=== PATIENT | female | born 1930 | race Hispanic/Latino ===

== ENCOUNTER 2018-02-08 09:38 | Emergency (ER) | payer BC, MEDICARE ==
--- NOTE | 2018-02-08 10:40 | RAD ---
HISTORY: Constipation COMPARISON: None available. FINDINGS: BOWEL: A moderate amount of retained fecal material seen at the distal rectosigmoid potentially reflective of mild constipation. The bowel gas pattern appears nonobstructive nevertheless. No suspicious intra-abdominal calcifications identified. BONES: Scoliotic deformity thoracolumbar spine. OTHER FINDINGS: None. IMPRESSION: Limited constipation in question. Nonobstructive bowel gas pattern evident.
[2018-02-08 10:45] LABS: BASO % 0.9 % (0.0-2.0); EOS % 0.9 % (0.0-4.0); LYMPH # 0.3 K/uL (1.0-4.3); NEUT # 3.4 K/uL (1.8-7.0)
[2018-02-08 10:52] LABS: ALB/GLOB RATIO 1.3 (1.0-2.1); ALBUMIN 4.1 g/dL (3.5-5.0); ALT/SGPT 16 U/L (9-52); AST/SGOT 29 U/L (14-36); BLOOD UREA NITROGEN 16 mg/dL (7-17); CALCIUM 8.4 mg/dl (8.6-10.4); GFR AFRICAN-AMERICAN > 60; GFR NON-AFRICAN AMERICAN 59; HEMOGLOBIN 10.5 g/dL (11.0-16.0); LIPASE 56 U/L (23-300); LYMPH % 7.1 % (20.0-40.0); MEAN CORPUSCULAR HEMOGLOBIN 27.5 pg (27.0-31.0); MEAN CORPUSCULAR HGB CONC 33.9 g/dL (33.0-37.0); MEAN PLATELET VOLUME 7.5 fL (7.2-11.7); MONO # 0.6 K/uL (0.0-0.8); MONO % 14.5 % (0.0-10.0); NEUT % 76.6 % (50.0-75.0); PLATELET COUNT 134 K/uL (130-400); RBC 3.82 Mil/uL (3.80-5.20); WHITE BLOOD COUNT 4.5 K/uL (4.8-10.8)
[2018-02-08] MEDS ORDERED: Sodium Chloride 0.9% 500 ML IV ONE ×2 (10:56→11:14)
[2018-02-08 10:58] LABS: MEAN CELL VOLUME 81.2 fL (81.0-99.0)
[2018-02-08 11:06] LABS: URINE BILIRUBIN NEGATIVE (NEGATIVE); URINE BLOOD NEGATIVE (NEGATIVE); URINE CLARITY Clear (Clear); URINE COLOR Straw (YELLOW); URINE GLUCOSE (UA) NORMAL (Normal); URINE LEUKOCYTE ESTERASE NEG Leu/uL (Negative); URINE PROTEIN NEGATIVE (NEGATIVE); URINE UROBILINOGEN NORMAL mg/dL (0.2-1.0)
[2018-02-08 11:23] VITALS: PULSE 70
[2018-02-08 11:47] LABS: BANDS 1 % (0-2); EOSINOPHIL 2 % (0-4); LYMPHOCYTE 8 % (20-40); MONOCYTE 12 % (0-10); NEUTROPHIL 77 % (50-75); PLATELET ESTIMATE NORMAL (NORMAL); TOTAL CELLS COUNTED 100
[2018-02-08 11:48] LABS: ANISOCYTOSIS SLIGHT; OVALOCYTES SLIGHT; POIKILOCYTOSIS SLIGHT
[2018-02-08 11:49] LABS: FREE T4 2.17 ng/dL (0.78-2.19)
--- NOTE | 2018-02-08 12:11 | C.PDOC ---
Time Seen by Provider: 02/08/18 09:57 Chief Complaint (Nursing): GI Problem History Per: Patient, Family Onset/Duration Of Symptoms: Days (few) Current Symptoms Are (Timing): Still Present Severity: Moderate Quality Of Discomfort: Pressure. denies: "Pain" Associated Symptoms: Nausea, Constipation Exacerbating Factors: Food Alleviating Factors: None Last Bowel Movement: Yesterday Additional History Per: Prior Records Past Medical History Reviewed: Historical Data, Nursing Documentation, Vital Signs Vital Signs: Last Vital Signs Temp 97 F L 02/08/18 09:42 Pulse 70 02/08/18 11:22 Resp 18 02/08/18 11:22 BP 154/78 H 02/08/18 11:22 Pulse Ox 95 02/08/18 11:22 - Medical History PMH: Arthritis, Atrial Fibrillation, Back Problems, CAD, HTN, Hypercholesterolemia, Chronic Kidney Disease Surgical History: Coronary Stent (x2), Pacemaker - [facility] Procedures FLUOROSCOPY OF LEFT HEART USING OTHER CONTRAST (07/08/15) MEASURE OF CARDIAC SAMPL & PRESSURE, L HEART, PERC APPROACH (07/08/15) PACEMAKER RATE CHECK (03/30/15) Family History: States: Unknown Family Hx, CAD - Social History Hx Tobacco Use: No Hx Alcohol Use: No Hx Substance Use: No - Immunization History Hx Tetanus Toxoid Vaccination: No Hx Influenza Vaccination: No Hx Pneumococcal Vaccination: Yes (last week) Review Of Systems Except As Marked, All Systems Reviewed And Found Negative. Constitutional: Negative for: Fever Cardiovascular: Negative for: Chest Pain Respiratory: Negative for: Shortness of Breath Gastrointestinal: Positive for: Nausea, Constipation. Negative for: Vomiting, Diarrhea, Melena, Hematochezia, Hematemesis Musculoskeletal: Negative for: Neck Pain, Back Pain Skin: Negative for: Rash Neurological: Negative for: Weakness, Numbness Physical Exam - Physical Exam Appears: Non-toxic, No Acute Distress Skin: Normal Color, Warm, Dry, No Rash Head: Atraumatic, Normacephalic Eye(s): bilateral: Normal Inspection, PERRL, EOMI Neck: Normal ROM, Supple Cardiovascular: Rhythm Regular Respiratory: Normal Breath Sounds, No Accessory Muscle Use Gastrointestinal/Abdominal: Soft, No Tenderness Back: No CVA Tenderness Extremity: Normal ROM Neurological/Psych: Oriented x3, Normal Motor, Normal Sensation ED Course And Treatment - Laboratory Results Result Diagrams: 02/08/18 10:29 02/08/18 10:29 Interpretation Of Abnormal: Mild hyponatremia ECG: Interpreted By Me, Viewed By Me ECG Rhythm: A Paced, L BBB, Nonspecific Changes Rate From EC O2 Sat by Pulse Oximetry: 95 Pulse Ox Interpretation: Normal - Other Rad KUB X-Ray: Viewed By Me, Read By Radiologist Interpretation: IMPRESSION: Limited constipation in question. Nonobstructive bowel gas pattern evident. Progress - Interventions Interventions:: Observation, Intravenous fluid - Medications Administered Intravenous: Antiemetic - Data Reviewed Data Reviewed: Lab, Diagnostic imaging, EKG, Old records - Patient Status Patient status: Mostly improved - Continuity of Care Discussed patient case with:: Patient, Family-HIPPA compliant, ED Nurse, PMD - Patient Plan Patient Plan: Discharge, F/U with PCP Disposition Discussed With : Gustabo Hassan Comment: I discussed with him pt's presentation and lab findings, including sodium level. He states that he wants pt to stop taking the Lasix and f/up in his office in 2 days. Doctor Will See Patient In The: Office Counseled Patient/Family Regarding: Studies Performed, Diagnosis, Need For Followup, Rx Given - Disposition Referrals: Gustabo Hassan MD [Staff Provider] - Disposition: HOME/ ROUTINE Disposition Time: 12:14 Condition: IMPROVED Additional Instructions: Stop taking your Lasix for now until you follow up with your doctor in 2 days. Return to the ER if you develop fever, vomiting, abdominal pain, worsening of symptoms or if you have any other concerns. Prescriptions: Polyethylene Glycol 3350 [Miralax] 17 gm PO DAILY PRN #7 packet PRN Reason: Constipation Instructions: Constipation, Adult (DC) Forms: [facility] (Turkish) - Clinical Impression Clinical Impression: Constipation, Hyponatremia
[2018-02-08 12:28] VITALS: BP 124/99; RESP 19; TEMP 98; O2SAT 96
--- NOTE | 2018-02-09 12:37 | CARD ---
APPROVED REPORT EKG Measurement Heart [id number] <Conclusion> Atrial-paced rhythm with prolonged AV conduction Left axis deviation Left bundle branch block Abnormal ECG
== END 2018-02-08 12:40 | disposition home or self-care (01) ==
LOC: C.ER 09:38
DX: K59.00 Constipation, unspecified (principal); E87.1 Hypo-osmolality and hyponatremia
CPT/HCPCS: 74018; 80053; 81001; 83690; 83735; 84439; 84443; 85025; 87086; 93005; 96361; 96374; 99285; J2405; J7040

== ENCOUNTER 2018-03-18 08:14 | Inpatient (IN) | payer MEDICARE ==
[2018-03-18] MEDS ORDERED: Tetanus/Diphtheria Toxoids 0.5 ml Syringe IM ONE ×2 (08:43→09:07)
--- NOTE | 2018-03-18 08:52 | C.PDOC ---
History Of Present Illness S/P FALL THIS MORNING CO L HIP, ELBOW AND KNEE INJURY. PS ACCID SLIPPED ON TILE IN BATHROOM, FELL ONTO L HIP AND ELBOW, KNEE. ?HEAD INJURY. NO LOC. NORMALLY WALKS W CANE AND WALKER DUE TO ARTHRITIS. ON ELIQUIS HO VALVE REPAIR. NO ASSOC PAIN, PRODROME. +AMBUL AFTER FALL. NO NV, RECENT ILLNESS. SP TYLENOL HOST AND HOSTESS EXAM NAD NONTOXIC HEENT ATRAUM NECK SUPPLE NO CSPINE TEND EXT L HIP: AROM WO DIFF. ?SHORTENING L LEG. NO FOCAL TEND. L THIGH: +PROX LAT SOFT TISSUE TEND NO DEFORM. L KNEE: AROM WO DIFF NO DEFORM. L ELBOW: +HEMATOMA, FULL AROM WO DIFF. SKIN +ABRASION L KNEE, L ELBOW NO ACTIVE BLEED. NEURO NO FOCAL DEF, AT CURRENT BASELINE PER FAMILY @ BEDSIDE REMAINDER NEG - HPI Time Seen by Provider: 03/18/18 08:34 Chief Complaint (Nursing): Trauma History Per: Patient History/Exam Limitations: no limitations Onset/Duration Of Symptoms: Hrs Location Of Injury: Left: Elbow, Hip, Knee Additional History Per: Patient Past Medical History Reviewed: Historical Data, Nursing Documentation, Vital Signs Vital Signs: Last Vital Signs Temp 98.0 F 03/18/18 10:58 Pulse 125 H 03/18/18 11:36 Resp 16 03/18/18 11:36 BP 91/46 L 03/18/18 11:36 Pulse Ox 97 03/18/18 12:58 - Medical History PMH: Arthritis, Atrial Fibrillation, Back Problems, CAD, HTN, Hypercholesterolemia, Chronic Kidney Disease Surgical History: Coronary Stent (x2), Pacemaker - [facility] Procedures FLUOROSCOPY OF LEFT HEART USING OTHER CONTRAST (07/08/15) MEASURE OF CARDIAC SAMPL & PRESSURE, L HEART, PERC APPROACH (07/08/15) PACEMAKER RATE CHECK (03/30/15) Family History: States: Unknown Family Hx, CAD - Social History Hx Tobacco Use: No Hx Alcohol Use: No Hx Substance Use: No - Immunization History Hx Tetanus Toxoid Vaccination: No Hx Influenza Vaccination: No Hx Pneumococcal Vaccination: Yes (last week) Review Of Systems Except As Marked, All Systems Reviewed And Found Negative. Constitutional: Negative for: Fever, Chills Eyes: Negative for: Vision Change Musculoskeletal: Positive for: Arm Pain (left elbow pain), Leg Pain (left knee pain), Other (left hip pain) Neurological: Negative for: Weakness, Headache, Other (loss of consciousness) Physical Exam - Physical Exam Appears: Non-toxic, No Acute Distress Skin: Normal Color, Warm, Dry, Other (abrasion to left knee and left elbow; no active bleeding.) Head: Atraumatic, Normacephalic Eye(s): bilateral: Normal Inspection, PERRL, EOMI Nose: Normal Oral Mucosa: Moist Neck: Normal ROM, No Midline Cervical Tenderness, No Paracervical Tenderness, Supple Chest: Symmetrical Cardiovascular: Rhythm Regular Respiratory: Normal Breath Sounds Gastrointestinal/Abdominal: Soft, No Tenderness Back: Normal Inspection, No Vertebral Tenderness, No Paraspinal Tenderness Extremity: Normal ROM (left hip active ROM without difficulty; ? shortening of left leg. Left knee active ROM without difficulty. Left elbow + hematoma, full active ROM without difficutly.), Tenderness (left thigh proximal lateral soft tissue tenderness. no deformity. ), No Pedal Edema, No Calf Tenderness, No Deformity Neurological/Psych: Oriented x3, Normal Speech, Normal Cognition, Normal Motor, Normal Sensation, Other (no focal deficits) ED Course And Treatment - Laboratory Results Result Diagrams: 03/18/18 12:17 03/18/18 12:17 ECG: Interpreted By Ri, Viewed By Ri ECG Rhythm: L BBB ECG Interpretation: No Changes From Prior (02/15/18) Rate From EC (BPM) O2 Sat by Pulse Oximetry: 97 (RA) Pulse Ox Interpretation: Normal - Other Rad L HIP PELVIS X-Ray: Interpreted by Me L FEMUR X-Ray: Interpreted by Ri (NEG) L ELBOW X-Ray: Interpreted by Me (NEG) L KNEE X-Ray: Interpreted by Ri - CT Scan/US CT Head Other Rad Studies (CT/US): Read By Radiologist, Radiology Report Reviewed CT/US Interpretation: FINDINGS: HEMORRHAGE: No intracranial hemorrhage. BRAIN : No mass effect or edema. Mild atrophy consistent with patient age. Minimal chronic periventricular white matter lucency consistent with microvascular ischemic change. No evidence of acute infarct. VENTRICLES: Unremarkable. No hydrocephalus. CALVARIUM: Unremarkable. PARANASAL SINUSES: Unremarkable as visualized. No significant inflammatory changes. MASTOID AIR CELLS: Unremarkable as visualized. No inflammatory changes. OTHER FINDINGS: None. IMPRESSION: No intracranial mass, hemorrhage or evidence of acute infarct. Age -appropriate involutional changes. Progress - Re-Evaluation Re-evaluation Note: 03/18/18 10:57 AMBUL, DENIES HIP PAIN. CO LIGHTHEADEDNESS "BC I HAVEN'T EATEN YET TODAY". NO CP , [place], [place]. 03/18/18 11:19 S/P PO TRIAL, APPEARS IMPROVED. PERSIST ORTHOSTASIS. PS "I'M ANEMIC" S/P OUTPT LABS 2 WEEKS AGO. DENIES GI BLEED SX. D/W DR COOK: H/H 8.4 2 WEEKS, HYPONATREMIC. PENDING REPEAT LABS. WILL ADMIT. LABS PENDING. 03/18/18 12:56 SBP 90 APPEARS COMFORTABLE. CBC D/W DR VALADEZ. D/W DR SMITH C/F ICU WILL EVAL 03/18/18 13:24 ACCEPTED FOR ICU - Data Reviewed Data Reviewed: Lab, Diagnostic imaging, EKG, Old records - Critical Care Citical Care: Excluding Proc Time Critical Care Time: 90 minutes - Continuity of Care Discussed patient case with:: Patient, Family-HIPPA compliant, PMD Disposition Counseled Patient/Family Regarding: Studies Performed, Diagnosis - Disposition Disposition: HOSPITALIZED Disposition Time: 12:53 Condition: SERIOUS Forms: [facility] (Danish) - Clinical Impression Clinical Impression: Severe anemia, Multiple contusions, Hypotension, Coagulopathy - Scribe Statement The provider has reviewed the documentation as recorded by the Scribe (Wanda Mckeon) Provider Attestation: All medical record entries made by the Scribe were at my direction and personally dictated by me. I have reviewed the chart and agree that the record accurately reflects my personal performance of the history, physical exam, medical decision making, and the department course for this patient. I have also personally directed, reviewed, and agree with the discharge instructions and disposition. Decision To Admit - Pt Status Changed To: Hospital Disposition Of: Inpatient - Admit Certification Admit to Inpatient:: After my assessment, the patient will require hospitalization for at least two midnights. This is because of the severity of symptoms shown, intensity of services needed, and/or the medical risk in this patient being treated as an outpatient. - InPatient: Physician Admission Certification: I certify that this patient requires 2 or more midnights of care for the following reason:: SEE NOTE - . Bed Request Type: ICU Admitting Physician: Gustabo Valadez Patient Diagnosis: Severe anemia, Multiple contusions, Hypotension, Coagulopathy
--- NOTE | 2018-03-18 10:04 | CT ---
PROCEDURE: CT HEAD WITHOUT CONTRAST. HISTORY: TRAUMA COMPARISON: None available. TECHNIQUE: Axial computed tomography images were obtained through the head/brain without intravenous contrast. Radiation dose: Total exam DLP = 912.88 mGy-cm. This CT exam was performed using one or more of the following dose reduction techniques: Automated exposure control, adjustment of the mA and/or kV according to patient size, and/or use of iterative reconstruction technique. FINDINGS: HEMORRHAGE: No intracranial hemorrhage. BRAIN: No mass effect or edema. Mild atrophy consistent with patient age. Minimal chronic periventricular white matter lucency consistent with microvascular ischemic change. No evidence of acute infarct. VENTRICLES: Unremarkable. No hydrocephalus. CALVARIUM: Unremarkable. PARANASAL SINUSES: Unremarkable as visualized. No significant inflammatory changes. MASTOID AIR CELLS: Unremarkable as visualized. No inflammatory changes. OTHER FINDINGS: None. IMPRESSION: No intracranial mass, hemorrhage or evidence of acute infarct. Age-appropriate involutional changes.
--- NOTE | 2018-03-18 11:08 | RAD ---
PROCEDURE: Left Femur Radiographs. HISTORY: TRAUMA COMPARISON: None. TECHNIQUE: AP and Lateral Radiographs of the left femur. FINDINGS: FEMUR: No acute fracture or destructive bony lesion identified. SOFT TISSUES: Normal. 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 IMPRESSION: No acute fracture or dislocation. No destructive bony lesion evident. 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
--- NOTE | 2018-03-18 11:11 | RAD ---
PROCEDURE: Radiographs of the left elbow. HISTORY: TRAUMA COMPARISON: No prior. FINDINGS: BONES: No acute fracture or destructive bony lesion identified. JOINTS: No subluxation or dislocation identified. SOFT TISSUES: Moderate soft edema overlies the olecranon process. JOINT EFFUSION: None. OTHER FINDINGS: None IMPRESSION: No acute fracture or dislocation. Moderate soft tissue edema overlies the olecranon process.
--- NOTE | 2018-03-18 11:14 | RAD ---
PROCEDURE: LEFT HIP RADIOGRAPHS WITH PELVIS. HISTORY: TRAUMA COMPARISON: None available TECHNIQUE: A frontal view the pelvis has been submitted with a single frog-leg lateral view left hip. FINDINGS: There is no acute fracture dislocation identified. Marked joint space narrowing seen the bilateral hip joints compatible with advanced osteoarthritis. Moderate to severe degenerative changes seen the bilateral sacroiliac joints. Pubic symphysis appears intact. No suspicious lytic or blastic change is evident and local soft tissues appear unremarkable. IMPRESSION: No acute fracture or dislocation left hip joint. Pelvic ring is intact including pubic symphysis. 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
--- NOTE | 2018-03-18 11:15 | RAD ---
PROCEDURE: Left Knee Radiographs. HISTORY: Pain. COMPARISON: None. FINDINGS: BONES: No acute fracture or destructive bony lesion identified. JOINTS: Gross joint space narrowing seen the medial femorotibial compartment and is moderate the lateral femorotibial compartment. [id number] joint tenderness in the patellofemoral compartment. Cortical sclerosis and osteophyte development is appreciated mostly at the medial femorotibial compartment but also the patellofemoral joint. No subluxation or dislocation. JOINT EFFUSION: None. OTHER FINDINGS: None. IMPRESSION: No acute fracture or dislocation. Advanced osteoarthritis.
[2018-03-18] MEDS ORDERED: Sodium Chloride 0.9% 250 ML IV ONE (11:44)
[2018-03-18 12:37] LABS: BASO % 0.8 % (0.0-2.0); EOS % 0.3 % (0.0-4.0); LYMPH # 0.3 K/uL (1.0-4.3); LYMPH % 10.5 % (20.0-40.0); MEAN PLATELET VOLUME 9.8 fL (7.2-11.7); MONO # 0.4 K/uL (0.0-0.8); MONO % 18.5 % (0.0-10.0); NEUT # 1.7 K/uL (1.8-7.0); NEUT % 69.9 % (50.0-75.0); RED CELL DISTRIBUTION WIDTH 18.1 % (11.5-14.5)
[2018-03-18 12:41] LABS: HEMOGLOBIN 6.8 g/dL (11.0-16.0); MEAN CELL VOLUME 80.6 fL (81.0-99.0); MEAN CORPUSCULAR HEMOGLOBIN 26.6 pg (27.0-31.0); RBC 2.56 Mil/uL (3.80-5.20); WHITE BLOOD COUNT 2.5 K/uL (4.8-10.8)
[2018-03-18 12:57] LABS: PROTHROMBIN TIME 21.8 SECONDS (9.7-12.2)
[2018-03-18 13:24] LABS: CALCIUM 9.5 mg/dl (8.6-10.4)
[2018-03-18] MEDS ORDERED: Phytonadione 10 mg/ml Inj (Adult) SC STA (13:53)
--- NOTE | 2018-03-18 13:53 | CP.PCM.CON ---
<Rhonda Espinosa - Last Filed: 03/18/18 16:57> History of Present Illness - History of Present Illness History of Present Illness: Critical Care Consult Note HPI: This is an 87 year old female with PMHx of Atrial Fibrillation, CAD s/p LAD stent, with Multi-vessel Disease, HTN, Pacemaker, and s/p TAVR x2 presents to the ED with fatigue and weakness x several days and s/p fall. Patient was trying to get to the bathroom where she felt dizzy and fell forward, she reports she did not hit her head. Admitted to shortness of breath, is speaking in small phrases. Patient was admitted for anemia suspected GI bleed, OLIVIA, and thrombocytopenia. Denied fever, chills, headache, chest pain, abdominal pain, denied any hemoptysis, coffee ground emesis, BRBPR, melena, or black tarry stool. PMHx: Noted as above. PSHx: Pacemaker, PCI, TAVR Meds: As per NOV All: shellfish, statins SHx: Denied x 3 FHx: Unremarkable Past Patient History - Past Medical History & Family History Past Medical History?: Yes - Past Social History Smoking Status: Never Smoked - CARDIAC Hx Atrial Fibrillation: Yes Hx Hypercholesterolemia: Yes Hx Hypertension: Yes Hx Pacemaker: Yes - NEUROLOGICAL Hx Neurological Disorder: No - HEENT Hx HEENT Problems: No - RENAL Hx Chronic Kidney Disease: Yes - HEMATOLOGICAL/ONCOLOGICAL Hx Blood Disorders: No - INTEGUMENTARY Hx Dermatological Problems: No - MUSCULOSKELETAL/RHEUMATOLOGICAL Hx Arthritis: Yes - GASTROINTESTINAL Hx Gastrointestinal Disorders: No - GENITOURINARY/GYNECOLOGICAL Hx Genitourinary Disorders: No - PSYCHIATRIC Hx Substance Use: No - SURGICAL HISTORY Hx Coronary Stent: Yes (x2) - ANESTHESIA Hx Anesthesia: Yes Hx Anesthesia Reactions: No Meds Allergies/Adverse Reactions: Allergies Allergy/AdvReac Type Severity Reaction Status Date / Time shellfish derived Allergy Intermediate RASH Verified 03/18/18 08:32 statins Allergy Intermediate RASH Uncoded 03/18/18 08:32 Physical Exam - Constitutional Appears: No Acute Distress - Head Exam Head Exam: NORMAL INSPECTION, NORMOCEPHALIC - Eye Exam Eye Exam: EOMI, Normal appearance, PERRL Pupil Exam: NORMAL ACCOMODATION - ENT Exam ENT Exam: Mucous Membranes Dry - Respiratory Exam Respiratory Exam: Clear to Auscultation Bilateral. absent: Decreased Breath Sounds - Cardiovascular Exam Cardiovascular Exam: Tachycardia - GI/Abdominal Exam GI & Abdominal Exam: Normal Bowel Sounds, Soft. absent: Distended, Tenderness - Extremities Exam Extremities exam: Positive for: normal inspection, pedal pulses present. Negative for: pedal edema, tenderness - Back Exam Back exam: NORMAL INSPECTION - Neurological Exam Neurological exam: Alert, CN II-XII Intact, Oriented x3 - Psychiatric Exam Psychiatric exam: Normal Affect, Normal Mood - Skin Skin Exam: Dry, Intact, Normal Color, Warm Results - Vital Signs Recent Vital Signs: Last Vital Signs Temp 98.0 F 03/18/18 10:58 Pulse 125 H 03/18/18 11:36 Resp 16 03/18/18 11:36 BP 91/46 L 03/18/18 11:36 Pulse Ox 97 03/18/18 13:25 - Labs Result Diagrams: 03/18/18 12:17 03/18/18 12:17 Labs: Laboratory Results - last 24 hr 03/18/18 03/18/18 03/18/18 10:59 11:38 12:17 WBC 2.5 L RBC 2.56 L Hgb 6.8 L D Hct 20.6 L MCV 80.6 L MCH 26.6 L MCHC 33.0 RDW 18.1 H Plt Count 59 L D MPV 9.8 Neut % (Auto) 69.9 Lymph % (Auto) 10.5 L [place] % (Auto) 18.5 H Eos % (Auto) 0.3 Baso % (Auto) 0.8 Neut # (Auto) 1.7 L Lymph # (Auto) 0.3 L [place] # (Auto) 0.4 Eos # (Auto) 0.0 Baso # (Auto) 0.0 PT INR APTT Sodium Potassium Chloride Carbon Dioxide Anion Gap BUN Creatinine Est GFR ( Amer) Est GFR (Non-Af Amer) POC Glucose (mg/dL) 142 H Random Glucose Calcium Blood Type O POSITIVE Blood Type Confirm O POSITIVE Antibody Screen Negative 03/18/18 03/18/18 12:17 12:57 WBC RBC Hgb Hct MCV MCH MCHC RDW Plt Count MPV Neut % (Auto) Lymph % (Auto) [place] % (Auto) Eos % (Auto) Baso % (Auto) Neut # (Auto) Lymph # (Auto) [place] # (Auto) Eos # (Auto) Baso # (Auto) PT 21.8 H INR 2.0 APTT 37 H Sodium 131 L Potassium 4.2 Chloride 95 L Carbon Dioxide 23 Anion Gap 17 BUN 49 H Creatinine 1.8 H Est GFR ( Amer) 32 Est GFR (Non-Af Amer) 27 POC Glucose (mg/dL) Random Glucose 186 H Calcium 9.5 Blood Type Blood Type Confirm Antibody Screen Assessment & Plan - Assessment and Plan (Free Text) Assessment: This is an 87 year old female with PMHx of Atrial Fibrillation, CAD s/p LAD stent, with Multi-vessel Disease, HTN, Pacemaker, and s/p TAVR x2 presents to the ED with fatigue and weakness x several days and s/p fall. Patient was trying to get to the bathroom where she felt dizzy and fell forward, she reports she did not hit her head. Admitted to shortness of breath, is speaking in small phrases. Patient was admitted for anemia suspected GI bleed, OLIVIA, and thrombocytopenia. Denied fever, chills, headache, chest pain, abdominal pain, denied any hemoptysis, coffee ground emesis, BRBPR, melena, or black tarry stool. Plan: Neuro: A: S/P Fall - Head CT, Elbow Xray, Femur XRAY, Hip/pelvis Xray - all normal - no acute bleeding or fracture Cardio: A: Atrial Fibrillation - On Eliquis 5mg PO BID - held 2/2 anemia A: CAD s/p LAD stent, with Multi-vessel Disease A: HTN A: Pacemaker A: History of Aortic Valve Disease s/p TAVR A: Dyslipidemia - Will need omega 3, fish oil, niacin outpatient to increase Pulm: A: Respiratory Distress - Started on BiPAP PRN GI: A: Suspected GI Bleed - Hemoglobin baseline is 11 - Hemoglobin on admission is 6.8 - was slowly downtrending from prior outpatient labs - Denied any hemoptysis, coffee ground emesis, BRBPR, melena, or black tarry stool - Elevated - NPO, PPI Q12H - F/U stool occult Endo: A: Hypothyroidism - Synthroid 25mcg Heme/ Onc: A: Anemia - ??GIB - Hemoglobin baseline is 11 - Hemoglobin on admission is 6.8 - was slowly downtrending from prior outpatient labs - Denied any hemoptysis, coffee ground emesis, BRBPR, melena, or black tarry stool - F/U iron panel - Denied any previous EGD or Colonoscopy - Will be given 2 PRBCs, 1 FFP, and 1 Plateletphresis - Continue to monitor A: Coagulopathy - INR 2.0 on admission - Vitamin K, FFP A: Thrombocytopenia - S/P platelets - Continue to monitor - HOLD AC Renal: A: OLIVIA - Normal renal function at baseline - 1.8 on admission - Continue with IVF, monitor Prophylaxis - PPI Q12 - SCDs, VTE c/i due to ?GIB DW Dr. Crum, Rhonda Espinosa DO, PGY-1 <Luigi Crum S - Last Filed: 03/18/18 17:57> Meds - Medications Medications: Current Medications Sodium Chloride (Sodium Chloride 0.9%) 1,000 mls @ 100 mls/hr IV .Q10H KIMBERLEE Last Admin: 03/18/18 14:31 Dose: 100 mls/hr Levothyroxine Sodium (Synthroid) 25 mcg PO Q24H KIMBERLEE Ondansetron HCl (Zofran Inj) 4 mg IVP Q6H PRN PRN Reason: Nausea/Vomiting Pantoprazole Sodium (Protonix Inj) 40 mg IVP Q12H KIMBERLEE Results - Vital Signs Recent Vital Signs: Last Vital Signs Temp 97.9 F 03/18/18 17:21 Pulse 124 H 03/18/18 17:21 Resp 18 03/18/18 17:21 BP 85/57 L 03/18/18 17:21 Pulse Ox 92 L 03/18/18 17:00 - Labs Result Diagrams: 03/18/18 12:17 03/18/18 12:17 Labs: Laboratory Results - last 24 hr 03/18/18 03/18/18 03/18/18 10:59 11:38 12:17 WBC 2.5 L RBC 2.56 L Hgb 6.8 L D Hct 20.6 L MCV 80.6 L MCH 26.6 L MCHC 33.0 RDW 18.1 H Plt Count 59 L D MPV 9.8 Neut % (Auto) 69.9 Lymph % (Auto) 10.5 L [place] % (Auto) 18.5 H Eos % (Auto) 0.3 Baso % (Auto) 0.8 Neut # (Auto) 1.7 L Lymph # (Auto) 0.3 L [place] # (Auto) 0.4 Eos # (Auto) 0.0 Baso # (Auto) 0.0 PT INR APTT Puncture Site pCO2 pO2 HCO3 ABG pH ABG Total CO2 ABG O2 Saturation ABG Base Excess Gregory Test ABG Potassium A-a O2 Difference Respiratory Index Glucose Lactate Liter Flow FiO2 Sodium Potassium Chloride Carbon Dioxide Anion Gap BUN Creatinine Est GFR ( Amer) Est GFR (Non-Af Amer) POC Glucose (mg/dL) 142 H Random Glucose Calcium Triglycerides Cholesterol LDL Cholesterol Direct HDL Cholesterol Arterial Blood Potassium Blood Type O POSITIVE Blood Type Confirm O POSITIVE Antibody Screen Negative 03/18/18 03/18/18 03/18/18 12:17 12:57 15:36 WBC RBC Hgb Hct MCV MCH MCHC RDW Plt Count MPV Neut % (Auto) Lymph % (Auto) [place] % (Auto) Eos % (Auto) Baso % (Auto) Neut # (Auto) Lymph # (Auto) [place] # (Auto) Eos # (Auto) Baso # (Auto) PT 21.8 H INR 2.0 APTT 37 H Puncture Site pCO2 pO2 HCO3 ABG pH ABG Total CO2 ABG O2 Saturation ABG Base Excess Gregory Test ABG Potassium A-a O2 Difference Respiratory Index Glucose Lactate Liter Flow FiO2 Sodium 131 L Potassium 4.2 Chloride 95 L Carbon Dioxide 23 Anion Gap 17 BUN 49 H Creatinine 1.8 H Est GFR ( Amer) 32 Est GFR (Non-Af Amer) 27 POC Glucose (mg/dL) Random Glucose 186 H Calcium 9.5 Triglycerides 192 H D Cholesterol 113 LDL Cholesterol Direct 56 HDL Cholesterol 14 L Arterial Blood Potassium Blood Type Blood Type Confirm Antibody Screen 03/18/18 17:15 WBC RBC Hgb Hct MCV MCH MCHC RDW Plt Count MPV Neut % (Auto) Lymph % (Auto) [place] % (Auto) Eos % (Auto) Baso % (Auto) Neut # (Auto) Lymph # (Auto) [place] # (Auto) Eos # (Auto) Baso # (Auto) PT INR APTT Puncture Site Rbrachial pCO2 32 L pO2 110 H HCO3 25.2 ABG pH 7.47 H ABG Total CO2 24.3 ABG O2 Saturation 98.2 H ABG Base Excess 0.3 Gregory Test Neg ABG Potassium 4.2 A-a O2 Difference 50.0 Respiratory Index 0.5 Glucose 122 H Lactate 1.4 Liter Flow 2.0 FiO2 28.0 Sodium 130.0 L Potassium Chloride 100.0 Carbon Dioxide Anion Gap BUN Creatinine Est GFR ( Amer) Est GFR (Non-Af Amer) POC Glucose (mg/dL) Random Glucose Calcium Triglycerides Cholesterol LDL Cholesterol Direct HDL Cholesterol Arterial Blood Potassium 4.2 Blood Type Blood Type Confirm Antibody Screen Attending/Attestation - Attestation I have personally seen and examined this patient.: Yes I have fully participated in the care of the patient.: Yes I have reviewed all pertinent clinical information: Yes Notes (Text): 03/18/18 17:51 patient seen and examined 87-year-old female admitted status post fall with hemoglobin of 6.8 Transfuse packed RBCs ICU monitoring hold anticoagulation monitor her renal function
[2018-03-18] MEDS ORDERED: Home Med 1 UNIT (Polyethylene Glycol 3350 [Miralax] 17 GM) PO PRN (14:03)
[2018-03-18] MEDS ORDERED: Sodium Chloride 0.9% 1,000 ML ONE (14:14)
[2018-03-18] MEDS ORDERED: Phytonadione 10 mg/ml Inj (Adult) ONE (14:14)
[2018-03-18] MEDS ORDERED: POLYETHYLENE GLYCOL 3350 17 GM/Dose PACKET PO SCH (14:15)
[2018-03-18] MEDS: Sodium Chloride 0.9% 1,000 ML IV SCH (14:31)
--- NOTE | 2018-03-18 14:54 | RAD ---
PROCEDURE: CHEST RADIOGRAPH, 1 VIEW HISTORY: SOB COMPARISON: None available. FINDINGS: LUNGS: Clear. PLEURA: Mild vascular congestive changes with bilateral lower lobe alveolar-type infiltrates and bilateral effusions. CARDIOVASCULAR: Heart appears enlarged. No change mitral and aortic valve of prostheses or bipolar pacemaker -defibrillator. . OSSEOUS STRUCTURES: No significant abnormalities. VISUALIZED UPPER ABDOMEN: Normal. OTHER FINDINGS: None. IMPRESSION: Mild vascular congestive changes with bilateral lower lobe alveolar-type infiltrates and bilateral effusions.
[2018-03-18 15:49] LABS: HDL CHOLESTEROL 14 mg/dL (30-70)
[2018-03-18 16:00] LABS: LDL CHOLESTEROL 56 mg/dL (0-129)
--- NOTE | 2018-03-18 16:57 | CP.PCM.CON ---
History of Present Illness - History of Present Illness History of Present Illness: CC: Anemia HPI: 87 year old woman slipped and fell in the bathroom earlier today and came to the ER and was found to have Hgb 6.8. Pt denies syncope or chest pain, dyspnea. Pt has been feeling weak for 2 weeks. She apparently had Hgb >8 recently and was placed on oral Iron but could not tolerate it due to constipation. Patient is on Eliquis and Aspirin for cardiac disease. patient does not see melena, BRBPR, hematuria, hematemesis, or bruises on her skin. Pt had TAVR and has AFib, chronic renal disease , not on dialysis, which has been stable. CT head, and plain films of hips and knees did not disclose any fractures. patient has never had Colonoscopy or EGD. She denies priior history of peptic disease nor any abdominal pain. Review of Systems - Constitutional Constitutional: As Per HPI. absent: Anorexia, Fever - EENT Eyes: absent: Change in Vision - Cardiovascular Cardiovascular: Dyspnea on Exertion, Irregular Heart Rhythm. absent: Chest Pain , Syncope - Respiratory Respiratory: Dyspnea on Exertion. absent: Hemoptysis - Gastrointestinal Gastrointestinal: absent: Abdominal Pain, Constipation, Dyspepsia, Melena - Genitourinary Genitourinary: absent: Change in Urinary Stream - Menstruation Menstruation: Menopausal - Musculoskeletal Musculoskeletal: Arthralgias. absent: Back Pain - Integumentary Integumentary: absent: Bleeding Lesions, Unusual Bruising - Neurological Neurological: Weakness. absent: Abnormal Movements - Psychiatric Psychiatric: absent: Anxiety, Behavioral Changes - Endocrine Endocrine: absent: Change in Body Appearance - Hematologic/Lymphatic Hematologic: absent: Easy Bleeding Past Patient History - Past Medical History & Family History Past Medical History?: Yes - Past Social History Smoking Status: Never Smoked - CARDIAC Hx Atrial Fibrillation: Yes Hx Hypercholesterolemia: Yes Hx Hypertension: Yes Hx Pacemaker: Yes - NEUROLOGICAL Hx Neurological Disorder: No - HEENT Hx HEENT Problems: No - RENAL Hx Chronic Kidney Disease: Yes - ENDOCRINE/METABOLIC Hx Endocrine Disorders: No - HEMATOLOGICAL/ONCOLOGICAL Hx Blood Disorders: No - INTEGUMENTARY Hx Dermatological Problems: No - MUSCULOSKELETAL/RHEUMATOLOGICAL Hx Arthritis: Yes - GASTROINTESTINAL Hx Gastrointestinal Disorders: No - GENITOURINARY/GYNECOLOGICAL Hx Genitourinary Disorders: No - PSYCHIATRIC Hx Substance Use: No - SURGICAL HISTORY Hx Coronary Stent: Yes (x2) - ANESTHESIA Hx Anesthesia: Yes Hx Anesthesia Reactions: No Meds Allergies/Adverse Reactions: Allergies Allergy/AdvReac Type Severity Reaction Status Date / Time shellfish derived Allergy Intermediate RASH Verified 03/18/18 08:32 statins Allergy Intermediate RASH Uncoded 03/18/18 08:32 - Medications Medications: Current Medications Sodium Chloride (Sodium Chloride 0.9%) 1,000 mls @ 100 mls/hr IV .Q10H KIMBERLEE Last Admin: 03/18/18 14:31 Dose: 100 mls/hr Levothyroxine Sodium (Synthroid) 25 mcg PO Q24H KIMBERLEE Ondansetron HCl (Zofran Inj) 4 mg IVP Q6H PRN PRN Reason: Nausea/Vomiting Pantoprazole Sodium (Protonix Inj) 40 mg IVP Q12H KIMBERLEE Physical Exam - Constitutional Appears: Well, No Acute Distress, Younger Than Stated Age - Head Exam Head Exam: ATRAUMATIC, NORMOCEPHALIC - Eye Exam Eye Exam: absent: Scleral icterus Additional comments: conjunctivae pale - ENT Exam ENT Exam: Mucous Membranes Moist - Neck Exam Neck exam: Positive for: Normal Inspection - Respiratory Exam Respiratory Exam: Clear to Auscultation Bilateral - Cardiovascular Exam Cardiovascular Exam: Clicks, Irregular Rhythm - GI/Abdominal Exam GI & Abdominal Exam: Soft. absent: Distended, Guarding, Mass, Organomegaly, Rebound, Tenderness - Rectal Exam Rectal Exam: Deferred - Extremities Exam Extremities exam: Positive for: normal inspection - Back Exam Back exam: NORMAL INSPECTION - Neurological Exam Neurological exam: Alert, Oriented x3 - Psychiatric Exam Psychiatric exam: Normal Affect, Normal Mood - Skin Skin Exam: Normal Color, Warm Results - Vital Signs Recent Vital Signs: Last Vital Signs Temp 97.6 F 03/18/18 16:00 Pulse 124 H 03/18/18 16:10 Resp 26 H 03/18/18 16:10 BP 92/49 L 03/18/18 16:03 Pulse Ox 93 L 03/18/18 16:10 - Labs Result Diagrams: 03/18/18 12:17 03/18/18 12:17 Labs: Laboratory Results - last 24 hr 03/18/18 03/18/18 03/18/18 10:59 11:38 12:17 WBC 2.5 L RBC 2.56 L Hgb 6.8 L D Hct 20.6 L MCV 80.6 L MCH 26.6 L MCHC 33.0 RDW 18.1 H Plt Count 59 L D MPV 9.8 Neut % (Auto) 69.9 Lymph % (Auto) 10.5 L [place] % (Auto) 18.5 H Eos % (Auto) 0.3 Baso % (Auto) 0.8 Neut # (Auto) 1.7 L Lymph # (Auto) 0.3 L [place] # (Auto) 0.4 Eos # (Auto) 0.0 Baso # (Auto) 0.0 PT INR APTT Sodium Potassium Chloride Carbon Dioxide Anion Gap BUN Creatinine Est GFR ( Amer) Est GFR (Non-Af Amer) POC Glucose (mg/dL) 142 H Random Glucose Calcium Triglycerides Cholesterol LDL Cholesterol Direct HDL Cholesterol Blood Type O POSITIVE Blood Type Confirm O POSITIVE Antibody Screen Negative 03/18/18 03/18/18 03/18/18 12:17 12:57 15:36 WBC RBC Hgb Hct MCV MCH MCHC RDW Plt Count MPV Neut % (Auto) Lymph % (Auto) [place] % (Auto) Eos % (Auto) Baso % (Auto) Neut # (Auto) Lymph # (Auto) [place] # (Auto) Eos # (Auto) Baso # (Auto) PT 21.8 H INR 2.0 APTT 37 H Sodium 131 L Potassium 4.2 Chloride 95 L Carbon Dioxide 23 Anion Gap 17 BUN 49 H Creatinine 1.8 H Est GFR ( Amer) 32 Est GFR (Non-Af Amer) 27 POC Glucose (mg/dL) Random Glucose 186 H Calcium 9.5 Triglycerides 192 H D Cholesterol 113 LDL Cholesterol Direct 56 HDL Cholesterol 14 L Blood Type Blood Type Confirm Antibody Screen Assessment & Plan (1) Coagulopathy Assessment and Plan: Due to Eliquis Stable Status: Acute (2) Severe anemia Assessment and Plan: Suspect chronic slow GI blood losses on Eliquis and ASA Rec: Currently being transfused PRBCs. EGD in AM. PPI. Check stool OB and Iron studies Status: Acute (3) Afib Assessment and Plan: Management per cardiology Status: Acute (4) Aortic valve disease Assessment and Plan: Management per cardiology Status: Acute - Date & Time Date: 03/18/18 Time: 17:02
[2018-03-18 17:23] LABS: ABG ALLEN TEST NEG; ARTERIAL BLOOD GAS HCO3 25.2 mmol/L (21-28); ARTERIAL BLOOD GAS O2 SAT 98.2 % (95-98); ARTERIAL BLOOD GAS PCO2 32 mm/Hg (35-45); ARTERIAL BLOOD GAS PH 7.47 (7.35-7.45); ARTERIAL BLOOD GAS PO2 110 mm/Hg (80-100); ARTERIAL BLOOD GAS TCO2 24.3 mmol/L (22-28)
[2018-03-18 18:17] LABS: IRON 53 ug/dL (37-170)
[2018-03-18 18:24] LABS: TOTAL IRON BINDING CAPACITY 198 ug/dL (250-450)
[2018-03-18 18:27] LABS: % IRON SATURATION 27 (20-55)
[2018-03-18] MEDS ORDERED: Glucagon Recombinant 1 mg Inj IM PRN (18:55)
[2018-03-18] MEDS ORDERED: Dextrose 50% SYRINGE Inj (50 ml) IV PRN (19:04)
[2018-03-18] MEDS ORDERED: Digoxin 500 mcg/2ml (0.5 mg/2ml) Inj IVP ONE ×2 (19:30→22:00)
--- NOTE | 2018-03-18 20:04 | CP.PCM.HP ---
History of Present Illness - History of Present Illness History of Present Illness: Chief complaint: Weakness and falls HPI: 87-year-old female with a history of atrial fibrillation, CAD, hypertension, TAVR *2, on anticoagulation came to the emergency room today because of the weakness. Patient was trying to get up, was not able to walk she was feeling weakness yesterday, last night also she was having increasing tiredness, fatigue. Today she felt very weak, unable to get up, she slide down and slipped and fell in the bathroom, over the left side of the body. Patient has a bruise over the left elbow, left hip area. In the emergency room patient was evaluated, extensive x-rays was done, no evidence of fracture noted. Patient now having increasing weakness, tiredness, easy fatigue already, shortness of breath. No chest pain noted. Dizziness present. Past medical history: Hypertension, CAD, CAD and stent, I added valve replacement 2 Atrial fibrillation Family history noncontributing Surgical history includes stenting, and also I did valve replacement 2 Allergy allergic to several physicians tachycardia Review of system: Complaining of weakness, tiredness, easy fatigability, falls. A bruise noted. Shortness of breath noted On examination: In the emergency room patient was evaluated. The blood pressure is on the low side. Chest bilateral good air entry. Regular heart sound. Tachycardia noted. Abdomen soft nontender. Next images no pedal edema CASHIER GREETER alert awake oriented 3 no functional neurological deficits Patient's labs reviewed Sodium is 131, potassium 4.2 B-1 14 and creatinine 1.8. Hemoglobin is 6.8, WBC 2.5, platelet is 59 Chest x-ray mild congestive heart failure changes noted, EKG changes and showing atrial fibrillation with rapid ventricular rate CAT scan of the abdomen, official report pending, but it doesn't look like there is any bleeding Assessment and recommendation: 87-year-old female with a history of atrial fibrillation, CAD, status post aortic valve replacement. Pacemaker. Admitted with a GI bleed. Likely stool guaiac pending Possibly secondary to anticoagulation. Will hold of the anti-coagulation. Blood transfusion, oxygen, FFP, platelet. Gastrointestinal consultation, cardiology consultation, renal consultation P Also will get a consultation with the snowboard instructor. ICU monitoring. Protonix. We'll follow the patient Present on Admission - Present on Admission Any Indicators Present on Admission: No History of DVT/PE: No History of Uncontrolled Diabetes: No Urinary Catheter: No Decubitus Ulcer Present: No Past Patient History - Past Medical History & Family History Past Medical History?: Yes - Past Social History Smoking Status: Never Smoked - CARDIAC Hx Atrial Fibrillation: Yes Hx Hypercholesterolemia: Yes Hx Hypertension: Yes Hx Pacemaker: Yes - NEUROLOGICAL Hx Neurological Disorder: No - HEENT Hx HEENT Problems: No - RENAL Hx Chronic Kidney Disease: Yes - ENDOCRINE/METABOLIC Hx Endocrine Disorders: No - HEMATOLOGICAL/ONCOLOGICAL Hx Blood Disorders: No - INTEGUMENTARY Hx Dermatological Problems: No - MUSCULOSKELETAL/RHEUMATOLOGICAL Hx Arthritis: Yes - GASTROINTESTINAL Hx Gastrointestinal Disorders: No - GENITOURINARY/GYNECOLOGICAL Hx Genitourinary Disorders: No - PSYCHIATRIC Hx Substance Use: No - SURGICAL HISTORY Hx Coronary Stent: Yes (x2) - ANESTHESIA Hx Anesthesia: Yes Hx Anesthesia Reactions: No Meds Allergies/Adverse Reactions: Allergies Allergy/AdvReac Type Severity Reaction Status Date / Time shellfish derived Allergy Intermediate RASH Verified 03/18/18 08:32 statins Allergy Intermediate RASH Uncoded 03/18/18 08:32 Results - Vital Signs Recent Vital Signs: Last Vital Signs Temp 98.5 F 03/18/18 17:51 Pulse 125 H 03/18/18 19:03 Resp 31 H 03/18/18 19:03 BP 101/62 03/18/18 19:03 Pulse Ox 80 L 03/18/18 19:03 - Labs Result Diagrams: 03/18/18 12:17 03/18/18 12:17 Labs: Laboratory Results - last 24 hr 03/18/18 03/18/18 03/18/18 10:59 11:38 12:17 WBC 2.5 L RBC 2.56 L Hgb 6.8 L D Hct 20.6 L MCV 80.6 L MCH 26.6 L MCHC 33.0 RDW 18.1 H Plt Count 59 L D MPV 9.8 Neut % (Auto) 69.9 Lymph % (Auto) 10.5 L [place] % (Auto) 18.5 H Eos % (Auto) 0.3 Baso % (Auto) 0.8 Neut # (Auto) 1.7 L Lymph # (Auto) 0.3 L [place] # (Auto) 0.4 Eos # (Auto) 0.0 Baso # (Auto) 0.0 PT INR APTT Puncture Site pCO2 pO2 HCO3 ABG pH ABG Total CO2 ABG O2 Saturation ABG Base Excess Gregory Test ABG Potassium A-a O2 Difference Respiratory Index Glucose Lactate Liter Flow FiO2 Sodium Potassium Chloride Carbon Dioxide Anion Gap BUN Creatinine Est GFR ( Amer) Est GFR (Non-Af Amer) POC Glucose (mg/dL) 142 H Random Glucose Calcium Iron TIBC % Saturation Ferritin Triglycerides Cholesterol LDL Cholesterol Direct HDL Cholesterol Arterial Blood Potassium Blood Type O POSITIVE Blood Type Confirm O POSITIVE Antibody Screen Negative 03/18/18 03/18/18 03/18/18 12:17 12:57 15:36 WBC RBC Hgb Hct MCV MCH MCHC RDW Plt Count MPV Neut % (Auto) Lymph % (Auto) [place] % (Auto) Eos % (Auto) Baso % (Auto) Neut # (Auto) Lymph # (Auto) [place] # (Auto) Eos # (Auto) Baso # (Auto) PT 21.8 H INR 2.0 APTT 37 H Puncture Site pCO2 pO2 HCO3 ABG pH ABG Total CO2 ABG O2 Saturation ABG Base Excess Gregory Test ABG Potassium A-a O2 Difference Respiratory Index Glucose Lactate Liter Flow FiO2 Sodium 131 L Potassium 4.2 Chloride 95 L Carbon Dioxide 23 Anion Gap 17 BUN 49 H Creatinine 1.8 H Est GFR ( Amer) 32 Est GFR (Non-Af Amer) 27 POC Glucose (mg/dL) Random Glucose 186 H Calcium 9.5 Iron TIBC % Saturation Ferritin Triglycerides 192 H D Cholesterol 113 LDL Cholesterol Direct 56 HDL Cholesterol 14 L Arterial Blood Potassium Blood Type Blood Type Confirm Antibody Screen 03/18/18 03/18/18 03/18/18 17:15 17:35 17:35 WBC RBC Hgb Hct MCV MCH MCHC RDW Plt Count MPV Neut % (Auto) Lymph % (Auto) [place] % (Auto) Eos % (Auto) Baso % (Auto) Neut # (Auto) Lymph # (Auto) [place] # (Auto) Eos # (Auto) Baso # (Auto) PT INR APTT Puncture Site Rbrachial pCO2 32 L pO2 110 H HCO3 25.2 ABG pH 7.47 H ABG Total CO2 24.3 ABG O2 Saturation 98.2 H ABG Base Excess 0.3 Gregory Test Neg ABG Potassium 4.2 A-a O2 Difference 50.0 Respiratory Index 0.5 Glucose 122 H Lactate 1.4 Liter Flow 2.0 FiO2 28.0 Sodium 130.0 L Potassium Chloride 100.0 Carbon Dioxide Anion Gap BUN Creatinine Est GFR ( Amer) Est GFR (Non-Af Amer) POC Glucose (mg/dL) Random Glucose Calcium Iron 53 TIBC 198 L % Saturation 27 Ferritin 1080.0 Triglycerides Cholesterol LDL Cholesterol Direct HDL Cholesterol Arterial Blood Potassium 4.2 Blood Type Blood Type Confirm Antibody Screen
--- NOTE | 2018-03-18 20:44 | CT ---
EXAM: CT Abdomen and Pelvis Without Intravenous Contrast EXAM DATE/TIME: Exam ordered 03/18/2018 5:54 PM CLINICAL HISTORY: 87 years old, female; Signs and symptoms and abnormal findings; Abnormal lab test; Other: Low hgb; Other: Weakness; Additional info: Abdominal collection TECHNIQUE: Axial computed tomography images of the abdomen and pelvis without intravenous contrast. All CT scans at this facility use at least one of these dose optimization techniques: automated exposure control; mA and/or kV adjustment per patient size (includes targeted exams where dose is matched to clinical indication); or iterative reconstruction. Coronal and sagittal reformatted images were created and reviewed. COMPARISON: No relevant prior studies available. FINDINGS: Lung bases: There is a 2 mm nodule in the right middle lobe (series 5 image 3). Hypoventilatory changes are noted in the dependent portion of both lungs. There is coarse thickening of the interlobular septa at the lung bases posteriorly. Heart: There is a mitral valve and aortic valvular prosthesis. Mediastinum: There is a small hiatal hernia. ABDOMEN: Liver: The liver measures 16.8 cm. Gallbladder and bile ducts: Unremarkable. No calcified stones. No ductal dilation. Pancreas: Unremarkable. No ductal dilation. Spleen: The spleen measures 13.4 x 14.8 is 7 cm. 2 hypodense masses are noted in the lower pole of the spleen. Anteriorly the lesion measures 3.1 x 3.2 x 2.2 cm and posteriorly the lesion measures approximately 1 cm. Adrenals: Unremarkable. No mass. Kidneys and ureters: There is a 2.4 cm low-density lesion in the lower pole left kidney with a density measurement 2 H. There is a 1.2 cm low-density lesion in the upper pole the right kidney with slightly calcified rim and central density of 10 H. There is a 4.8 cm low-density lesion in the lower pole of the right kidney with a density measurement of 1H. A low density lesion in the midportion of the right kidney posteriorly measures 3.4 cm in maximum diameter with a central density measurement of 1 H. Punctate hyperdensity in the periphery of the mass suggesting a partially calcified rim. No hydronephrosis. Stomach and bowel: There are scattered colonic diverticula. No obstruction. PELVIS: Appendix: No findings to suggest acute appendicitis. Bladder: Unremarkable. No stones. Reproductive: Unremarkable as visualized. ABDOMEN and PELVIS: Intraperitoneal space: Unremarkable. No free air. No significant fluid collection. Bones/joints: There is a levoscoliosis of the lumbar spine with secondary degenerative changes. Subchondral cyst formation is noted on the acetabular side of both hip joints. There is narrowing of both hip joints with marginal osteophyte formation. Punctate areas of sclerosis are noted in the left acetabulum and the left femoral head each measuring approximately 5 mm. There is a grade 1 spondylolisthesis at L4-5 with 4 mm of retrolisthesis of L5 with respect to L4. Moderately advanced hypertrophic facet arthropathy is noted in the mid and lower lumbar spine. Degenerative changes are noted between the spinous processes of the lumbar spine where there is an accentuation of the normal lumbar lordosis. There is a compression fracture of T9 with approximately 70% loss of height of the vertebral body. No definite retropulsed fragments are seen. Soft tissues: There is a 1.0 cm umbilical hernia containing fat with no evidence of strangulation. Vasculature: Unremarkable. No abdominal aortic aneurysm. Lymph nodes: Lymph nodes are noted within the groin bilaterally. The largest on the right measures 2 x 1 x 1.7 cm and the largest on the left which is rounded in configuration measures 1.3 x 1.4 x 1.6 cm. There is external iliac adenopathy bilaterally. On the right is a lynnette mass measuring 2.8 x 1.2 x 1.4 cm and a second lynnette mass measuring 1.9 x 1 x 1.4 cm. On the left, a lynnette mass in the left external iliac chain measures 1.3 x 1 x 1.6 cm and the second lynnette mass measures 1.6 x 1.2 x 1.4 cm. There is para-aortic adenopathy. The largest on the left lobe of the level of the renal hilum measures 3.1 x 1.3 x 1.8 cm and the largest on the right below the right renal hilum measures 1.8 x 1.2 x 1.4 cm. Tubes, lines and devices: Pacemaker wires are noted in the right atrium and right ventricle. IMPRESSION: 1. Hepatosplenomegaly with adenopathy in this patient with anemia suggests possibility of a hematologic malignancy 2. Bilateral low density renal lesions. These are likely cysts but this is not confirmed on this noncontrast examination. 3. Scattered colonic diverticula. 4. Compression fracture at T9 with 70% loss of height of the vertebral body. No definite retropulsed fragment seen. 5. Low density lesions noted within the spleen could represent splenic infarcts. Other lesions such as hemangioma or tumor infiltration not excluded 6. 2 mm nodule in the right middle lobe. For low-risk patients, no follow-up is necessary. For high-risk patients (smoking history or other known risk factors) an optional chest CT at 12 months could be performed.
--- NOTE | 2018-03-18 22:46 | CP.PCM.CON ---
History of Present Illness - History of Present Illness History of Present Illness: HPI: This is an 87 year old female with PMHx of Atrial Fibrillation, CAD s/p LAD stent, with Multi-vessel Disease, HTN, Pacemaker, and s/p TAVR x2 presents to the ED with fatigue and weakness x several days and s/p fall. Patient was trying to get to the bathroom where she felt dizzy and fell forward, she reports she did not hit her head. Admitted to shortness of breath, is speaking in small phrases. Patient was admitted for anemia suspected GI bleed, OLIVIA, and thrombocytopenia. Denied fever, chills, headache, chest pain, abdominal pain, denied any hemoptysis, coffee ground emesis, BRBPR, melena, or black tarry stool. PMHx: Noted as above. PSHx: Pacemaker, PCI, TAVR Meds: As per NOV All: shellfish, statins SHx: Denied x 3 FHx: Unremarkable Physical Exam - Constitutional Appears: No Acute Distress - Head Exam Head Exam: NORMAL INSPECTION, NORMOCEPHALIC - Eye Exam Eye Exam: EOMI, Normal appearance, PERRL Pupil Exam: NORMAL ACCOMODATION - ENT Exam ENT Exam: Mucous Membranes Dry - Respiratory Exam Respiratory Exam: Clear to Auscultation Bilateral. absent: Decreased Breath Sounds - Cardiovascular Exam Cardiovascular Exam: Tachycardia - GI/Abdominal Exam GI & Abdominal Exam: Normal Bowel Sounds, Soft. absent: Distended, Tenderness - Extremities Exam Extremities exam: Positive for: normal inspection, pedal pulses present. Negative for: pedal edema, tenderness - Back Exam Back exam: NORMAL INSPECTION - Neurological Exam Neurological exam: Alert, CN II-XII Intact, Oriented x3 - Psychiatric Exam Psychiatric exam: Normal Affect, Normal Mood - Skin Skin Exam: Dry, Intact, Normal Color, Warm Past Patient History - Past Medical History & Family History Past Medical History?: Yes - Past Social History Smoking Status: Never Smoked - CARDIAC Hx Atrial Fibrillation: Yes Hx Hypercholesterolemia: Yes Hx Hypertension: Yes Hx Pacemaker: Yes - NEUROLOGICAL Hx Neurological Disorder: No - HEENT Hx HEENT Problems: No - RENAL Hx Chronic Kidney Disease: Yes - ENDOCRINE/METABOLIC Hx Endocrine Disorders: No - HEMATOLOGICAL/ONCOLOGICAL Hx Blood Disorders: No - INTEGUMENTARY Hx Dermatological Problems: No - MUSCULOSKELETAL/RHEUMATOLOGICAL Hx Arthritis: Yes - GASTROINTESTINAL Hx Gastrointestinal Disorders: No - GENITOURINARY/GYNECOLOGICAL Hx Genitourinary Disorders: No - PSYCHIATRIC Hx Substance Use: No - SURGICAL HISTORY Hx Coronary Stent: Yes (x2) - ANESTHESIA Hx Anesthesia: Yes Hx Anesthesia Reactions: No Meds Allergies/Adverse Reactions: Allergies Allergy/AdvReac Type Severity Reaction Status Date / Time shellfish derived Allergy Intermediate RASH Verified 03/18/18 08:32 statins Allergy Intermediate RASH Uncoded 03/18/18 08:32 - Medications Medications: Current Medications Dextrose (Dextrose 50% Inj) 0 ml IV STAT PRN; Protocol PRN Reason: Hypoglycemia Protocol Dextrose (Glutose 15) 0 gm PO ONCE PRN; Protocol PRN Reason: Hypoglycemia Protocol Glucagon (Glucagen Diagnostic Kit) 0 mg IM STAT PRN; Protocol PRN Reason: Hypoglycemia Protocol Sodium Chloride (Sodium Chloride 0.9%) 1,000 mls @ 100 mls/hr IV .Q10H KIMBERLEE Last Admin: 03/18/18 14:31 Dose: 100 mls/hr Dextrose (Dextrose 5% In Water 1000 Ml) 1,000 mls @ 0 mls/hr IV .Q0M PRN; Protocol; Per Protocol PRN Reason: Hypoglycemia Protocol Levothyroxine Sodium (Synthroid) 25 mcg PO Q24H KIMBERLEE Ondansetron HCl (Zofran Inj) 4 mg IVP Q6H PRN PRN Reason: Nausea/Vomiting Pantoprazole Sodium (Protonix Inj) 40 mg IVP Q12H KIMBERLEE Results - Vital Signs Recent Vital Signs: Last Vital Signs Temp 98.6 F 03/18/18 21:00 Pulse 125 H 03/18/18 22:14 Resp 22 03/18/18 22:14 BP 92/47 L 03/18/18 22:14 Pulse Ox 98 03/18/18 22:14 - Labs Result Diagrams: 03/18/18 12:17 03/18/18 12:17 Labs: Laboratory Results - last 24 hr 03/18/18 03/18/18 03/18/18 10:59 11:38 12:17 WBC 2.5 L RBC 2.56 L Hgb 6.8 L D Hct 20.6 L MCV 80.6 L MCH 26.6 L MCHC 33.0 RDW 18.1 H Plt Count 59 L D MPV 9.8 Neut % (Auto) 69.9 Lymph % (Auto) 10.5 L Pratt % (Auto) 18.5 H Eos % (Auto) 0.3 Baso % (Auto) 0.8 Neut # (Auto) 1.7 L Lymph # (Auto) 0.3 L Pratt # (Auto) 0.4 Eos # (Auto) 0.0 Baso # (Auto) 0.0 PT INR APTT Puncture Site pCO2 pO2 HCO3 ABG pH ABG Total CO2 ABG O2 Saturation ABG Base Excess Gregory Test ABG Potassium A-a O2 Difference Respiratory Index Glucose Lactate Liter Flow FiO2 Sodium Potassium Chloride Carbon Dioxide Anion Gap BUN Creatinine Est GFR ( Amer) Est GFR (Non-Af Amer) POC Glucose (mg/dL) 142 H Random Glucose Calcium Iron TIBC % Saturation Ferritin Triglycerides Cholesterol LDL Cholesterol Direct HDL Cholesterol Arterial Blood Potassium Blood Type O POSITIVE Blood Type Confirm O POSITIVE Antibody Screen Negative 03/18/18 03/18/18 03/18/18 12:17 12:57 15:36 WBC RBC Hgb Hct MCV MCH MCHC RDW Plt Count MPV Neut % (Auto) Lymph % (Auto) Pratt % (Auto) Eos % (Auto) Baso % (Auto) Neut # (Auto) Lymph # (Auto) Pratt # (Auto) Eos # (Auto) Baso # (Auto) PT 21.8 H INR 2.0 APTT 37 H Puncture Site pCO2 pO2 HCO3 ABG pH ABG Total CO2 ABG O2 Saturation ABG Base Excess Gregory Test ABG Potassium A-a O2 Difference Respiratory Index Glucose Lactate Liter Flow FiO2 Sodium 131 L Potassium 4.2 Chloride 95 L Carbon Dioxide 23 Anion Gap 17 BUN 49 H Creatinine 1.8 H Est GFR ( Amer) 32 Est GFR (Non-Af Amer) 27 POC Glucose (mg/dL) Random Glucose 186 H Calcium 9.5 Iron TIBC % Saturation Ferritin Triglycerides 192 H D Cholesterol 113 LDL Cholesterol Direct 56 HDL Cholesterol 14 L Arterial Blood Potassium Blood Type Blood Type Confirm Antibody Screen 03/18/18 03/18/18 03/18/18 17:15 17:35 17:35 WBC RBC Hgb Hct MCV MCH MCHC RDW Plt Count MPV Neut % (Auto) Lymph % (Auto) Pratt % (Auto) Eos % (Auto) Baso % (Auto) Neut # (Auto) Lymph # (Auto) Pratt # (Auto) Eos # (Auto) Baso # (Auto) PT INR APTT Puncture Site Rbrachial pCO2 32 L pO2 110 H HCO3 25.2 ABG pH 7.47 H ABG Total CO2 24.3 ABG O2 Saturation 98.2 H ABG Base Excess 0.3 Gregory Test Neg ABG Potassium 4.2 A-a O2 Difference 50.0 Respiratory Index 0.5 Glucose 122 H Lactate 1.4 Liter Flow 2.0 FiO2 28.0 Sodium 130.0 L Potassium Chloride 100.0 Carbon Dioxide Anion Gap BUN Creatinine Est GFR ( Amer) Est GFR (Non-Af Amer) POC Glucose (mg/dL) Random Glucose Calcium Iron 53 TIBC 198 L % Saturation 27 Ferritin 1080.0 Triglycerides Cholesterol LDL Cholesterol Direct HDL Cholesterol Arterial Blood Potassium 4.2 Blood Type Blood Type Confirm Antibody Screen Assessment & Plan - Assessment and Plan (Free Text) Assessment: This is an 87 year old female with PMHx of Atrial Fibrillation, CAD s/p LAD stent, with Multi-vessel Disease, HTN, Pacemaker, and s/p TAVR x2 presents to the ED with fatigue and weakness x several days and s/p fall. Patient was trying to get to the bathroom where she felt dizzy and fell forward, she reports she did not hit her head. Admitted to shortness of breath, is speaking in small phrases. Patient was admitted for anemia suspected GI bleed, OLIVIA, and thrombocytopenia. Denied fever, chills, headache, chest pain, abdominal pain, denied any hemoptysis, coffee ground emesis, BRBPR, melena, or black tarry stool. Plan: Neuro: A: S/P Fall - Head CT, Elbow Xray, Femur XRAY, Hip/pelvis Xray - all normal - no acute bleeding or fracture Cardio: A: Atrial Fibrillation - On Eliquis 5mg PO BID - held 2/2 anemia A: CAD s/p LAD stent, with Multi-vessel Disease A: HTN A: Pacemaker A: History of Aortic Valve Disease s/p TAVR A: Dyslipidemia - Will need omega 3, fish oil, niacin outpatient to increase Pulm: A: Respiratory Distress - Started on BiPAP PRN GI: A: Suspected GI Bleed - Hemoglobin baseline is 11 - Hemoglobin on admission is 6.8 - was slowly downtrending from prior outpatient labs - Denied any hemoptysis, coffee ground emesis, BRBPR, melena, or black tarry stool - Elevated - NPO, PPI Q12H - F/U stool occult Endo: A: Hypothyroidism - Synthroid 25mcg Heme/ Onc: A: Anemia - ??GIB - Hemoglobin baseline is 11 - Hemoglobin on admission is 6.8 - was slowly downtrending from prior outpatient labs - Denied any hemoptysis, coffee ground emesis, BRBPR, melena, or black tarry stool - F/U iron panel - Denied any previous EGD or Colonoscopy - Will be given 2 PRBCs, 1 FFP, and 1 Plateletphresis - Continue to monitor A: Coagulopathy - INR 2.0 on admission - Vitamin K, FFP A: Thrombocytopenia - S/P platelets - Continue to monitor - HOLD AC Renal: A: OLIVIA - Normal renal function at baseline - 1.8 on admission - Continue with IVF, monitor Prophylaxis - PPI Q12 - SCDs, VTE c/i due to ?GIB Hx of TVAR and CAD/stents Denies chest pain and dyspnea Assessed as low to intermediate risk for cardiac events for EGD and Colonoscopy Given patient clinical condition recommend to proceed with EGD and Colonoscopy
[2018-03-18 22:54] VITALS: PULSE 125
[2018-03-19] MEDS: Sodium Chloride 0.9% 1,000 ML IV SCH
[2018-03-19 00:14] LABS: HEMOGLOBIN 8.3 g/dL (11.0-16.0); MEAN CELL VOLUME 79.7 fL (81.0-99.0); MEAN CORPUSCULAR HGB CONC 33.9 g/dL (33.0-37.0); MEAN PLATELET VOLUME 9.6 fL (7.2-11.7); RBC 3.09 Mil/uL (3.80-5.20); RED CELL DISTRIBUTION WIDTH 17.8 % (11.5-14.5); WHITE BLOOD COUNT 2.3 K/uL (4.8-10.8)
[2018-03-19 05:44] LABS: ARTERIAL BLOOD GAS HCO3 26.8 mmol/L (21-28); ARTERIAL BLOOD GAS PCO2 37 mm/Hg (35-45); ARTERIAL BLOOD GAS PH 7.46 (7.35-7.45); ARTERIAL BLOOD GAS PO2 83 mm/Hg (80-100); ARTERIAL BLOOD GAS TCO2 27.4 mmol/L (22-28)
[2018-03-19] MEDS: Levothyroxine 25 MCG TAB PO SCH (06:20)
[2018-03-19 06:41] LABS: HEMOGLOBIN 10.1 g/dL (11.0-16.0); LYMPH # 0.3 K/uL (1.0-4.3); LYMPH % 9.5 % (20.0-40.0); MEAN CELL VOLUME 81.1 fL (81.0-99.0); MEAN CORPUSCULAR HEMOGLOBIN 26.9 pg (27.0-31.0); MEAN CORPUSCULAR HGB CONC 33.2 g/dL (33.0-37.0); MEAN PLATELET VOLUME 9.7 fL (7.2-11.7); MONO # 0.5 K/uL (0.0-0.8); MONO % 16.8 % (0.0-10.0); NEUT # 2.1 K/uL (1.8-7.0); NEUT % 71.7 % (50.0-75.0); NRBC % 0.1 % (0.0-2.0); PLATELET COUNT 59 K/uL (130-400); RBC 3.75 Mil/uL (3.80-5.20); RED CELL DISTRIBUTION WIDTH 17.2 % (11.5-14.5); WHITE BLOOD COUNT 2.9 K/uL (4.8-10.8)
[2018-03-19 06:42] LABS: PLT(ADP) 18 K/uL
[2018-03-19 06:43] LABS: FUNCTIONING PLTS 49 K/uL; PLT BASE COUNT 67 K/uL
[2018-03-19 06:56] LABS: ALB/GLOB RATIO 1.2 (1.0-2.1); ALBUMIN 3.3 g/dL (3.5-5.0); CALCIUM 8.4 mg/dl (8.6-10.4)
[2018-03-19 07:21] LABS: INR 1.5; PROTHROMBIN TIME 16.8 SECONDS (9.7-12.2)
--- NOTE | 2018-03-19 09:46 | CP.PCM.CON ---
History of Present Illness - History of Present Illness History of Present Illness: HPI: This is an 87 year old female with PMHx of CKD 3, Atrial Fibrillation, CAD s/p LAD stent, with Multi-vessel Disease, HTN, Pacemaker, and s/p TAVR x2 presents to the ED with fatigue and weakness x several days and s/p fall. Patient was trying to get to the bathroom where she felt dizzy and fell forward , she reports she did not hit her head. Admitted to shortness of breath, is speaking in small phrases. Patient was admitted for anemia suspected GI bleed, OLIVIA, and thrombocytopenia. Denied fever, chills, headache, chest pain, abdominal pain, denied any hemoptysis, coffee ground emesis, BRBPR, melena, or black tarry stool. PMHx: Noted as above. PSHx: Pacemaker, PCI, TAVR Meds: As per NOV All: shellfish, statins SHx: Denied - ETOH. illicits, smoking FHx: Unremarkable; no CKD Review of Systems - Constitutional Constitutional: Fatigue, Weakness - EENT Eyes: absent: As Per HPI, Blind Spots, Blurred Vision, Change in Vision, Decreased Night Vision, Diplopia, Discharge, Dry Eye, Exophthalmos, Floaters, Irritation, Itchy Eyes, Loss of Peripheral Vision, Pain, Photophobia, Requires Corrective Lenses, Sees Flashes, Spots in Vision, Tunnel Vision, Other Visual Disturbances, Loss of Vision, Other Ears: absent: As Per HPI, Decreased Hearing, Ear Discharge, Ear Pain, Tinnitus, Abnormal Hearing, Disequilibrium, Dizziness, Other Nose/Mouth/Throat: absent: As Per HPI, Epistaxis, Nasal Congestion, Nasal Discharge, Nasal Obstruction, Nasal Trauma, Nose Pain, Post Nasal Drip, Sinus Pain, Sinus Pressure, Bleeding Gums, Change in Voice, Dental Pain, Dry Mouth, Dysphagia, Halitosis, Hoarsness, Lip Swelling, Mouth Lesions, Mouth Pain, Odynophagia, Sore Throat, Throat Swelling, Tongue Swelling, Facial Pain, Neck Pain, Neck Mass, Other - Cardiovascular Cardiovascular: Dyspnea on Exertion, Lightheadedness - Gastrointestinal Gastrointestinal: Constipation, Nausea - Genitourinary Genitourinary: Voiding Freq/Small Amts - Musculoskeletal Musculoskeletal: Muscle Weakness, Myalgias - Neurological Neurological: Dizziness, Weakness Past Patient History - Past Medical History & Family History Past Medical History?: Yes - Past Social History Smoking Status: Never Smoked Chewing Tobacco Use: No Cigar Use: No Alcohol: None Home Situation {Lives}: Alone - CARDIAC Hx Atrial Fibrillation: Yes Hx Hypercholesterolemia: Yes Hx Hypertension: Yes Hx Pacemaker: Yes - NEUROLOGICAL Hx Neurological Disorder: No - HEENT Hx HEENT Problems: No - RENAL Hx Chronic Kidney Disease: Yes - ENDOCRINE/METABOLIC Hx Endocrine Disorders: No - HEMATOLOGICAL/ONCOLOGICAL Hx Blood Disorders: No - INTEGUMENTARY Hx Dermatological Problems: No - MUSCULOSKELETAL/RHEUMATOLOGICAL Hx Arthritis: Yes - GASTROINTESTINAL Hx Gastrointestinal Disorders: No - GENITOURINARY/GYNECOLOGICAL Hx Genitourinary Disorders: No - PSYCHIATRIC Hx Substance Use: No - SURGICAL HISTORY Hx Coronary Stent: Yes (x2) - ANESTHESIA Hx Anesthesia: Yes Hx Anesthesia Reactions: No Meds Allergies/Adverse Reactions: Allergies Allergy/AdvReac Type Severity Reaction Status Date / Time shellfish derived Allergy Intermediate RASH Verified 03/18/18 08:32 statins Allergy Intermediate RASH Uncoded 03/18/18 08:32 - Medications Medications: Current Medications Amiodarone HCl 900 mg/ (Dextrose) 500 mls @ 33.33 mls/hr IV .Q15H1M ONE; 1 MG/ MIN PRN Reason: Protocol Stop: 03/19/18 23:16 Amiodarone HCl 900 mg/ (Dextrose) 500 mls @ 16.66 mls/hr IV .Q24H ONE; 0.5 MG/ MIN PRN Reason: Protocol Stop: 03/20/18 23:16 Levothyroxine Sodium (Synthroid) 25 mcg PO Q24H [facility] Last Admin: 03/19/18 06:20 Dose: 25 mcg Ondansetron HCl (Zofran Inj) 4 mg IVP Q6H PRN PRN Reason: Nausea/Vomiting Pantoprazole Sodium (Protonix Inj) 40 mg IVP Q12H [facility] Last Admin: 03/19/18 01:25 Dose: 40 mg Physical Exam - Constitutional Appears: Non-toxic, No Acute Distress, Chronically Ill - Head Exam Head Exam: ATRAUMATIC, NORMAL INSPECTION - Eye Exam Eye Exam: EOMI, Normal appearance - Neck Exam Neck exam: Positive for: Normal Inspection. Negative for: Tenderness - Respiratory Exam Respiratory Exam: Rhonchi, NORMAL BREATHING PATTERN - Cardiovascular Exam Cardiovascular Exam: Tachycardia, Irregular Rhythm - GI/Abdominal Exam GI & Abdominal Exam: Distended, Soft - Extremities Exam Extremities exam: Positive for: normal inspection. Negative for: tenderness - Neurological Exam Neurological exam: Alert, CN II-XII Intact - Skin Skin Exam: Dry, Warm Results - Vital Signs Recent Vital Signs: Last Vital Signs Temp 99.7 F H 03/19/18 08:00 Pulse 128 H 03/19/18 08:02 Resp 22 03/19/18 08:02 BP 147/78 03/19/18 08:02 Pulse Ox 98 03/19/18 08:02 - Labs Result Diagrams: 03/19/18 06:33 03/19/18 06:33 Labs: Laboratory Results - last 24 hr 03/18/18 03/18/18 03/18/18 10:59 11:38 12:17 WBC 2.5 L RBC 2.56 L Hgb 6.8 L D Hct 20.6 L MCV 80.6 L MCH 26.6 L MCHC 33.0 RDW 18.1 H Plt Count 59 L D MPV 9.8 Neut % (Auto) 69.9 Lymph % (Auto) 10.5 L [place] % (Auto) 18.5 H Eos % (Auto) 0.3 Baso % (Auto) 0.8 Neut # (Auto) 1.7 L Lymph # (Auto) 0.3 L [place] # (Auto) 0.4 Eos # (Auto) 0.0 Baso # (Auto) 0.0 PT INR APTT Plt Function Assay Puncture Site pCO2 pO2 HCO3 ABG pH ABG Total CO2 ABG O2 Saturation ABG Base Excess ABG Hemoglobin ABG Carboxyhemoglobin POC ABG HHb (Measured) ABG Methemoglobin Gregory Test ABG Potassium A-a O2 Difference Respiratory Index Hgb O2 Saturation Glucose Lactate Liter Flow FiO2 Sodium Potassium Chloride Carbon Dioxide Anion Gap BUN Creatinine Est GFR ( Amer) Est GFR (Non-Af Amer) POC Glucose (mg/dL) 142 H Random Glucose Calcium Phosphorus Magnesium Iron TIBC % Saturation Ferritin Total Bilirubin AST ALT Alkaline Phosphatase Total Protein Albumin Globulin Albumin/Globulin Ratio Triglycerides Cholesterol LDL Cholesterol Direct HDL Cholesterol Arterial Blood Potassium Stool Occult Blood Blood Type O POSITIVE Blood Type Confirm O POSITIVE Antibody Screen Negative 03/18/18 03/18/18 03/18/18 12:17 12:57 15:36 WBC RBC Hgb Hct MCV MCH MCHC RDW Plt Count MPV Neut % (Auto) Lymph % (Auto) [place] % (Auto) Eos % (Auto) Baso % (Auto) Neut # (Auto) Lymph # (Auto) [place] # (Auto) Eos # (Auto) Baso # (Auto) PT 21.8 H INR 2.0 APTT 37 H Plt Function Assay Puncture Site pCO2 pO2 HCO3 ABG pH ABG Total CO2 ABG O2 Saturation ABG Base Excess ABG Hemoglobin ABG Carboxyhemoglobin POC ABG HHb (Measured) ABG Methemoglobin Gregory Test ABG Potassium A-a O2 Difference Respiratory Index Hgb O2 Saturation Glucose Lactate Liter Flow FiO2 Sodium 131 L Potassium 4.2 Chloride 95 L Carbon Dioxide 23 Anion Gap 17 BUN 49 H Creatinine 1.8 H Est GFR ( Amer) 32 Est GFR (Non-Af Amer) 27 POC Glucose (mg/dL) Random Glucose 186 H Calcium 9.5 Phosphorus Magnesium Iron TIBC % Saturation Ferritin Total Bilirubin AST ALT Alkaline Phosphatase Total Protein Albumin Globulin Albumin/Globulin Ratio Triglycerides 192 H D Cholesterol 113 LDL Cholesterol Direct 56 HDL Cholesterol 14 L Arterial Blood Potassium Stool Occult Blood Blood Type Blood Type Confirm Antibody Screen 03/18/18 03/18/18 03/18/18 17:15 17:35 17:35 WBC RBC Hgb Hct MCV MCH MCHC RDW Plt Count MPV Neut % (Auto) Lymph % (Auto) [place] % (Auto) Eos % (Auto) Baso % (Auto) Neut # (Auto) Lymph # (Auto) [place] # (Auto) Eos # (Auto) Baso # (Auto) PT INR APTT Plt Function Assay Puncture Site Rbrachial pCO2 32 L pO2 110 H HCO3 25.2 ABG pH 7.47 H ABG Total CO2 24.3 ABG O2 Saturation 98.2 H ABG Base Excess 0.3 ABG Hemoglobin ABG Carboxyhemoglobin POC ABG HHb (Measured) ABG Methemoglobin Gregory Test Neg ABG Potassium 4.2 A-a O2 Difference 50.0 Respiratory Index 0.5 Hgb O2 Saturation Glucose 122 H Lactate 1.4 Liter Flow 2.0 FiO2 28.0 Sodium 130.0 L Potassium Chloride 100.0 Carbon Dioxide Anion Gap BUN Creatinine Est GFR ( Amer) Est GFR (Non-Af Amer) POC Glucose (mg/dL) Random Glucose Calcium Phosphorus Magnesium Iron 53 TIBC 198 L % Saturation 27 Ferritin 1080.0 Total Bilirubin AST ALT Alkaline Phosphatase Total Protein Albumin Globulin Albumin/Globulin Ratio Triglycerides Cholesterol LDL Cholesterol Direct HDL Cholesterol Arterial Blood Potassium 4.2 Stool Occult Blood Blood Type Blood Type Confirm Antibody Screen 03/19/18 03/19/18 03/19/18 00:10 04:40 06:14 WBC 2.3 L RBC 3.09 L Hgb 8.3 L Hct 24.6 L MCV 79.7 L MCH 27.0 MCHC 33.9 RDW 17.8 H Plt Count 55 L MPV 9.6 Neut % (Auto) Lymph % (Auto) [place] % (Auto) Eos % (Auto) Baso % (Auto) Neut # (Auto) Lymph # (Auto) [place] # (Auto) Eos # (Auto) Baso # (Auto) PT INR APTT Plt Function Assay Puncture Site Rb pCO2 37 pO2 83 HCO3 26.8 ABG pH 7.46 H ABG Total CO2 27.4 ABG O2 Saturation 98.0 ABG Base Excess 2.4 ABG Hemoglobin 10.0 L ABG Carboxyhemoglobin 2.0 H POC ABG HHb (Measured) 1.9 ABG Methemoglobin 0.9 Gregory Test Na ABG Potassium A-a O2 Difference 99.0 Respiratory Index 1.2 Hgb O2 Saturation 95.2 Glucose Lactate Liter Flow 3.0 FiO2 32.0 Sodium Potassium Chloride Carbon Dioxide Anion Gap BUN Creatinine Est GFR ( Amer) Est GFR (Non-Af Amer) POC Glucose (mg/dL) Random Glucose Calcium Phosphorus Magnesium Iron TIBC % Saturation Ferritin Total Bilirubin AST ALT Alkaline Phosphatase Total Protein Albumin Globulin Albumin/Globulin Ratio Triglycerides Cholesterol LDL Cholesterol Direct HDL Cholesterol Arterial Blood Potassium Stool Occult Blood Negative Blood Type Blood Type Confirm Antibody Screen 03/19/18 03/19/18 03/19/18 06:33 06:33 06:33 WBC 2.9 L RBC 3.75 L Hgb 10.1 L Hct 30.4 L MCV 81.1 MCH 26.9 L MCHC 33.2 RDW 17.2 H Plt Count 59 L MPV 9.7 Neut % (Auto) 71.7 Lymph % (Auto) 9.5 L [place] % (Auto) 16.8 H Eos % (Auto) 1.0 Baso % (Auto) 1.0 Neut # (Auto) 2.1 Lymph # (Auto) 0.3 L [place] # (Auto) 0.5 Eos # (Auto) 0.0 Baso # (Auto) 0.0 PT 16.8 H D INR 1.5 D APTT Plt Function Assay Puncture Site pCO2 pO2 HCO3 ABG pH ABG Total CO2 ABG O2 Saturation ABG Base Excess ABG Hemoglobin ABG Carboxyhemoglobin POC ABG HHb (Measured) ABG Methemoglobin Gregory Test ABG Potassium A-a O2 Difference Respiratory Index Hgb O2 Saturation Glucose Lactate Liter Flow FiO2 Sodium 134 Potassium 4.9 Chloride 98 Carbon Dioxide 25 Anion Gap 16 BUN 41 H Creatinine 1.4 H Est GFR ( Amer) 43 Est GFR (Non-Af Amer) 36 POC Glucose (mg/dL) Random Glucose 98 Calcium 8.4 L Phosphorus 4.3 Magnesium 1.9 Iron TIBC % Saturation Ferritin Total Bilirubin 1.5 H AST 94 H D ALT 79 H D Alkaline Phosphatase 211 H D Total Protein 6.1 L Albumin 3.3 L Globulin 2.7 Albumin/Globulin Ratio 1.2 Triglycerides Cholesterol LDL Cholesterol Direct HDL Cholesterol Arterial Blood Potassium Stool Occult Blood Blood Type Blood Type Confirm Antibody Screen 03/19/18 06:33 WBC RBC Hgb Hct MCV MCH MCHC RDW Plt Count MPV Neut % (Auto) Lymph % (Auto) [place] % (Auto) Eos % (Auto) Baso % (Auto) Neut # (Auto) Lymph # (Auto) [place] # (Auto) Eos # (Auto) Baso # (Auto) PT INR APTT Plt Function Assay 49 Puncture Site pCO2 pO2 HCO3 ABG pH ABG Total CO2 ABG O2 Saturation ABG Base Excess ABG Hemoglobin ABG Carboxyhemoglobin POC ABG HHb (Measured) ABG Methemoglobin Gregory Test ABG Potassium A-a O2 Difference Respiratory Index Hgb O2 Saturation Glucose Lactate Liter Flow FiO2 Sodium Potassium Chloride Carbon Dioxide Anion Gap BUN Creatinine Est GFR ( Amer) Est GFR (Non-Af Amer) POC Glucose (mg/dL) Random Glucose Calcium Phosphorus Magnesium Iron TIBC % Saturation Ferritin Total Bilirubin AST ALT Alkaline Phosphatase Total Protein Albumin Globulin Albumin/Globulin Ratio Triglycerides Cholesterol LDL Cholesterol Direct HDL Cholesterol Arterial Blood Potassium Stool Occult Blood Blood Type Blood Type Confirm Antibody Screen Assessment & Plan (1) Fall (on) (from) other stairs and steps, sequela Status: Acute (2) HTN (hypertension) Status: Acute (3) Atrial fibrillation Status: Acute (4) GI bleed Status: Acute (5) CKD (chronic kidney disease) stage 3, GFR 30-59 ml/min Status: Acute - Assessment and Plan (Free Text) Plan: Renal function has improved Continue to monitor increased LFTs Follow up lytes agree with GI workup s/p prbcs blood and FFP transfusions on amiodarone as per cardiology
[2018-03-19 09:47] LABS: ANISOCYTOSIS SLIGHT; BANDS 6 % (0-2); EOSINOPHIL 1 % (0-4); HYPOCHROMIC SLIGHT; LYMPHOCYTE 10 % (20-40); MONOCYTE 15 % (0-10); NEUTROPHIL 67 % (50-75); PLATELET ESTIMATE DECREASED (NORMAL); REACTIVE LYMPHOCYTES 1 % (0-0); TOTAL CELLS COUNTED 100
[2018-03-19] MEDS ORDERED: Lactated Ringer's 1,000 ML IV ONE (11:30)
[2018-03-19] MEDS ORDERED: Midazolam 2 MG/2 ML VIAL ONE (11:37)
[2018-03-19] MEDS ORDERED: Etomidate 20 mg/10ml Inj IV ONE (11:38)
--- NOTE | 2018-03-19 15:16 | CP.PCM.CON ---
History of Present Illness - History of Present Illness History of Present Illness: 87 year old female with a history of CAD s/p stent, afib with pacemaker, TAVR x 2 on antiplatelet and anticoagulation, admitted with symptomatic anemia and pancytopenia. The patient notes to being told she had anemia and prescribed iron tablets. She was unable to continue her iron due to constipation. She denies abnormal bleeding but does have black stools intermittently. She does also bruise easily. She denies chest pain. She is s/p PRBC transfusion and notes to feeling better. Past medical history: CAD s/p stent, afib with pacemaker, TAVR Past surgical history: Pacemaker, TAVR Family history: Denies hematologic and oncologic problems Social history: Denies tobacco, alcohol, and illicit drug use. Allergies: Shellfish, statins Review of systems: All remaining review of systems including HEENT, cardiovascular, respiratory, gastrointestinal, genitourinary, musculoskeletal, dermatologic, neurologic, and psychiatric are negative unless mentioned in the HPI. Past Patient History - Past Medical History & Family History Past Medical History?: Yes - Past Social History Smoking Status: Never Smoked Chewing Tobacco Use: No Cigar Use: No Alcohol: None Home Situation {Lives}: Alone - CARDIAC Hx Atrial Fibrillation: Yes Hx Hypercholesterolemia: Yes Hx Hypertension: Yes Hx Pacemaker: Yes - NEUROLOGICAL Hx Neurological Disorder: No - HEENT Hx HEENT Problems: No - RENAL Hx Chronic Kidney Disease: Yes - ENDOCRINE/METABOLIC Hx Endocrine Disorders: No - HEMATOLOGICAL/ONCOLOGICAL Hx Blood Disorders: No - INTEGUMENTARY Hx Dermatological Problems: No - MUSCULOSKELETAL/RHEUMATOLOGICAL Hx Arthritis: Yes - GASTROINTESTINAL Hx Gastrointestinal Disorders: No - GENITOURINARY/GYNECOLOGICAL Hx Genitourinary Disorders: No - PSYCHIATRIC Hx Substance Use: No - SURGICAL HISTORY Hx Coronary Stent: Yes (x2) - ANESTHESIA Hx Anesthesia: Yes Hx Anesthesia Reactions: No Meds Allergies/Adverse Reactions: Allergies Allergy/AdvReac Type Severity Reaction Status Date / Time shellfish derived Allergy Intermediate RASH Verified 03/18/18 08:32 statins Allergy Intermediate RASH Uncoded 03/18/18 08:32 - Medications Medications: Current Medications Amiodarone HCl 900 mg/ (Dextrose) 500 mls @ 33.33 mls/hr IV .Q15H1M ONE; 1 MG/ MIN PRN Reason: Protocol Stop: 03/19/18 23:16 Last Admin: 03/19/18 10:09 Dose: 33.33 mls/hr Amiodarone HCl 900 mg/ (Dextrose) 500 mls @ 16.66 mls/hr IV .Q24H ONE; 0.5 MG/ MIN PRN Reason: Protocol Stop: 03/20/18 23:16 Levothyroxine Sodium (Synthroid) 25 mcg PO Q24H [facility] Last Admin: 03/19/18 06:20 Dose: 25 mcg Ondansetron HCl (Zofran Inj) 4 mg IVP Q6H PRN PRN Reason: Nausea/Vomiting Pantoprazole Sodium (Protonix Inj) 40 mg IVP Q12H [facility] Last Admin: 03/19/18 13:49 Dose: 40 mg Physical Exam - Head Exam Head Exam: ATRAUMATIC - Eye Exam Eye Exam: Normal appearance - ENT Exam ENT Exam: Mucous Membranes Dry - Respiratory Exam Respiratory Exam: NORMAL BREATHING PATTERN - Cardiovascular Exam Cardiovascular Exam: +S1, +S2 - GI/Abdominal Exam GI & Abdominal Exam: Normal Bowel Sounds - Neurological Exam Neurological exam: Oriented x3 - Psychiatric Exam Psychiatric exam: Normal Affect, Normal Mood - Skin Skin Exam: Warm Results - Vital Signs Recent Vital Signs: Last Vital Signs Temp 98.3 F 03/19/18 12:00 Pulse 108 H 03/19/18 15:00 Resp 21 03/19/18 15:00 BP 135/66 03/19/18 14:55 Pulse Ox 86 L 03/19/18 13:54 - Labs Result Diagrams: 03/19/18 06:33 03/19/18 06:33 Labs: Laboratory Results - last 24 hr 03/18/18 03/18/18 03/18/18 11:38 15:36 17:15 WBC RBC Hgb Hct MCV MCH MCHC RDW Plt Count MPV Neut % (Auto) Lymph % (Auto) [place] % (Auto) Eos % (Auto) Baso % (Auto) Neut # (Auto) Lymph # (Auto) [place] # (Auto) Eos # (Auto) Baso # (Auto) Neutrophils % (Manual) Band Neutrophils % Lymphocytes % (Manual) Reactive Lymphs % Monocytes % (Manual) Eosinophils % (Manual) Platelet Estimate Hypochromasia (manual) Anisocytosis (manual) PT INR Plt Function Assay Puncture Site Rbrachial pCO2 32 L pO2 110 H HCO3 25.2 ABG pH 7.47 H ABG Total CO2 24.3 ABG O2 Saturation 98.2 H ABG Base Excess 0.3 ABG Hemoglobin ABG Carboxyhemoglobin POC ABG HHb (Measured) ABG Methemoglobin Gregory Test Neg ABG Potassium 4.2 A-a O2 Difference 50.0 Respiratory Index 0.5 Hgb O2 Saturation Sodium 130.0 L Chloride 100.0 Glucose 122 H Lactate 1.4 Liter Flow 2.0 FiO2 28.0 Potassium Carbon Dioxide Anion Gap BUN Creatinine Est GFR ( Amer) Est GFR (Non-Af Amer) Random Glucose Calcium Phosphorus Magnesium Iron TIBC % Saturation Ferritin Total Bilirubin AST ALT Alkaline Phosphatase Total Protein Albumin Globulin Albumin/Globulin Ratio Triglycerides 192 H D Cholesterol 113 LDL Cholesterol Direct 56 HDL Cholesterol 14 L Free T4 TSH 3rd Generation Arterial Blood Potassium 4.2 Stool Occult Blood Blood Type O POSITIVE Blood Type Confirm O POSITIVE Antibody Screen Negative 03/18/18 03/18/18 03/19/18 17:35 17:35 00:10 WBC 2.3 L RBC 3.09 L Hgb 8.3 L Hct 24.6 L MCV 79.7 L MCH 27.0 MCHC 33.9 RDW 17.8 H Plt Count 55 L MPV 9.6 Neut % (Auto) Lymph % (Auto) [place] % (Auto) Eos % (Auto) Baso % (Auto) Neut # (Auto) Lymph # (Auto) [place] # (Auto) Eos # (Auto) Baso # (Auto) Neutrophils % (Manual) Band Neutrophils % Lymphocytes % (Manual) Reactive Lymphs % Monocytes % (Manual) Eosinophils % (Manual) Platelet Estimate Hypochromasia (manual) Anisocytosis (manual) PT INR Plt Function Assay Puncture Site pCO2 pO2 HCO3 ABG pH ABG Total CO2 ABG O2 Saturation ABG Base Excess ABG Hemoglobin ABG Carboxyhemoglobin POC ABG HHb (Measured) ABG Methemoglobin Gregory Test ABG Potassium A-a O2 Difference Respiratory Index Hgb O2 Saturation Sodium Chloride Glucose Lactate Liter Flow FiO2 Potassium Carbon Dioxide Anion Gap BUN Creatinine Est GFR ( Amer) Est GFR (Non-Af Amer) Random Glucose Calcium Phosphorus Magnesium Iron 53 TIBC 198 L % Saturation 27 Ferritin 1080.0 Total Bilirubin AST ALT Alkaline Phosphatase Total Protein Albumin Globulin Albumin/Globulin Ratio Triglycerides Cholesterol LDL Cholesterol Direct HDL Cholesterol Free T4 TSH 3rd Generation Arterial Blood Potassium Stool Occult Blood Blood Type Blood Type Confirm Antibody Screen 03/19/18 03/19/1818 04:40 06:14 06:33 WBC 2.9 L RBC 3.75 L Hgb 10.1 L Hct 30.4 L MCV 81.1 MCH 26.9 L MCHC 33.2 RDW 17.2 H Plt Count 59 L MPV 9.7 Neut % (Auto) 71.7 Lymph % (Auto) 9.5 L [place] % (Auto) 16.8 H Eos % (Auto) 1.0 Baso % (Auto) 1.0 Neut # (Auto) 2.1 Lymph # (Auto) 0.3 L [place] # (Auto) 0.5 Eos # (Auto) 0.0 Baso # (Auto) 0.0 Neutrophils % (Manual) 67 Band Neutrophils % 6 H Lymphocytes % (Manual) 10 L Reactive Lymphs % 1 H Monocytes % (Manual) 15 H Eosinophils % (Manual) 1 Platelet Estimate Decreased L Hypochromasia (manual) Slight Anisocytosis (manual) Slight PT INR Plt Function Assay Puncture Site Rb pCO2 37 pO2 83 HCO3 26.8 ABG pH 7.46 H ABG Total CO2 27.4 ABG O2 Saturation 98.0 ABG Base Excess 2.4 ABG Hemoglobin 10.0 L ABG Carboxyhemoglobin 2.0 H POC ABG HHb (Measured) 1.9 ABG Methemoglobin 0.9 Gregory Test Na ABG Potassium A-a O2 Difference 99.0 Respiratory Index 1.2 Hgb O2 Saturation 95.2 Sodium Chloride Glucose Lactate Liter Flow 3.0 FiO2 32.0 Potassium Carbon Dioxide Anion Gap BUN Creatinine Est GFR ( Amer) Est GFR (Non-Af Amer) Random Glucose Calcium Phosphorus Magnesium Iron TIBC % Saturation Ferritin Total Bilirubin AST ALT Alkaline Phosphatase Total Protein Albumin Globulin Albumin/Globulin Ratio Triglycerides Cholesterol LDL Cholesterol Direct HDL Cholesterol Free T4 TSH 3rd Generation Arterial Blood Potassium Stool Occult Blood Negative Blood Type Blood Type Confirm Antibody Screen 03/19/18 03/19/18 03/19/18 06:33 06:33 06:33 WBC RBC Hgb Hct MCV MCH MCHC RDW Plt Count MPV Neut % (Auto) Lymph % (Auto) [place] % (Auto) Eos % (Auto) Baso % (Auto) Neut # (Auto) Lymph # (Auto) [place] # (Auto) Eos # (Auto) Baso # (Auto) Neutrophils % (Manual) Band Neutrophils % Lymphocytes % (Manual) Reactive Lymphs % Monocytes % (Manual) Eosinophils % (Manual) Platelet Estimate Hypochromasia (manual) Anisocytosis (manual) PT 16.8 H D INR 1.5 D Plt Function Assay 49 Puncture Site pCO2 pO2 HCO3 ABG pH ABG Total CO2 ABG O2 Saturation ABG Base Excess ABG Hemoglobin ABG Carboxyhemoglobin POC ABG HHb (Measured) ABG Methemoglobin Gregory Test ABG Potassium A-a O2 Difference Respiratory Index Hgb O2 Saturation Sodium 134 Chloride 98 Glucose Lactate Liter Flow FiO2 Potassium 4.9 Carbon Dioxide 25 Anion Gap 16 BUN 41 H Creatinine 1.4 H Est GFR ( Amer) 43 Est GFR (Non-Af Amer) 36 Random Glucose 98 Calcium 8.4 L Phosphorus 4.3 Magnesium 1.9 Iron TIBC % Saturation Ferritin Total Bilirubin 1.5 H AST 94 H D ALT 79 H D Alkaline Phosphatase 211 H D Total Protein 6.1 L Albumin 3.3 L Globulin 2.7 Albumin/Globulin Ratio 1.2 Triglycerides Cholesterol LDL Cholesterol Direct HDL Cholesterol Free T4 TSH 3rd Generation 1.77 Arterial Blood Potassium Stool Occult Blood Blood Type Blood Type Confirm Antibody Screen 03/19/18 10:22 WBC RBC Hgb Hct MCV MCH MCHC RDW Plt Count MPV Neut % (Auto) Lymph % (Auto) [place] % (Auto) Eos % (Auto) Baso % (Auto) Neut # (Auto) Lymph # (Auto) [place] # (Auto) Eos # (Auto) Baso # (Auto) Neutrophils % (Manual) Band Neutrophils % Lymphocytes % (Manual) Reactive Lymphs % Monocytes % (Manual) Eosinophils % (Manual) Platelet Estimate Hypochromasia (manual) Anisocytosis (manual) PT INR Plt Function Assay Puncture Site pCO2 pO2 HCO3 ABG pH ABG Total CO2 ABG O2 Saturation ABG Base Excess ABG Hemoglobin ABG Carboxyhemoglobin POC ABG HHb (Measured) ABG Methemoglobin Gregory Test ABG Potassium A-a O2 Difference Respiratory Index Hgb O2 Saturation Sodium Chloride Glucose Lactate Liter Flow FiO2 Potassium Carbon Dioxide Anion Gap BUN Creatinine Est GFR ( Amer) Est GFR (Non-Af Amer) Random Glucose Calcium Phosphorus Magnesium Iron TIBC % Saturation Ferritin Total Bilirubin AST ALT Alkaline Phosphatase Total Protein Albumin Globulin Albumin/Globulin Ratio Triglycerides Cholesterol LDL Cholesterol Direct HDL Cholesterol Free T4 2.31 H TSH 3rd Generation Arterial Blood Potassium Stool Occult Blood Blood Type Blood Type Confirm Antibody Screen Assessment & Plan (1) Pancytopenia Assessment and Plan: will check retic count, b12, folate to further characterize anemia mild tbili elevation; will fractionate bilirubin, LDH, haptoglobin ? hemolysis ferritin elevated; anemia of chronic disease FOBT negative platelet count was normal on admission; cont. to monitor ? medication related mild leukopenia, no neutropenia Thank you for this interesting consult. Status: Acute
--- NOTE | 2018-03-19 15:39 | CARD ---
APPROVED REPORT EKG Measurement Heart [id number] <Conclusion> Atrial Fibrilation with rapid V responss Left axis deviation Left bundle branch block Abnormal ECG
[2018-03-19] MEDS ORDERED: Metoprolol Succinate 25 mg XL Tab PO ONE (16:15)
--- NOTE | 2018-03-19 19:30 | CP.PCM.PN ---
Subjective - Date & Time of Evaluation Date of Evaluation: 03/19/18 Time of Evaluation: 19:30 - Subjective Subjective: Patient underwent upper endoscopy today. Upper endoscopy showing esophageal ulcer, esophagitis, duodenal ulcer but no active bleeding noted. Patient is having slight discomfort upon breathing. Shortness of breath present noted Lasix was given. Tachycardia also noted. Amiodarone drip is running, but which was On examination: Vital signs tachycardia noted. Chest good air entry, wheezing noted, regular heart sound. Nontender abdomen Extremities 1+ pedal edema Labs reviewed Hemoglobin is stable. Mild pancytopenia noted. Assessment and recommendation: 87-year-old female with a history of valve replacement 2 for aortic valve. Atrial fibrillation. Pacemaker. Admitted to the hospital with fall weakness. Severe anemia. The source is unclear. Associate with the mild leukopenia, low platelets, also elevated INR. Bone marrow disease cannot be ruled out. No evidence of active bleeding at this time. We will continue the current treatment. Appreciate oncology follow-up will follow the patient Objective - Vital Signs/Intake and Output Vital Signs (last 24 hours): Temp Pulse Resp BP Pulse Ox 99.3 F 106 H 11 L 131/64 68 L 03/19/18 16:00 03/19/18 19:00 03/19/18 19:00 03/19/18 18:55 03/19/18 19:00 Intake and Output: 03/19/18 03/20/18 18:59 06:59 Intake Total 661.7 33.3 Output Total 600 Balance 61.7 33.3 - Medications Medications: Current Medications Amiodarone HCl (Cordarone) 100 mg PO DAILY [facility] Enalapril Maleate (Vasotec) 2.5 mg PO DAILY [facility] Amiodarone HCl 900 mg/ (Dextrose) 500 mls @ 33.33 mls/hr IV .Q15H1M ONE; 1 MG/ MIN PRN Reason: Protocol Stop: 03/19/18 23:16 Last Admin: 03/19/18 10:09 Dose: 33.33 mls/hr Amiodarone HCl 900 mg/ (Dextrose) 500 mls @ 16.66 mls/hr IV .Q24H ONE; 0.5 MG/ MIN PRN Reason: Protocol Stop: 03/20/18 23:16 Levothyroxine Sodium (Synthroid) 25 mcg PO Q24H [facility] Last Admin: 03/19/18 06:20 Dose: 25 mcg Metoprolol Succinate (Toprol Xl) 25 mg PO DAILY [facility] Ondansetron HCl (Zofran Inj) 4 mg IVP Q6H PRN PRN Reason: Nausea/Vomiting Pantoprazole Sodium (Protonix Inj) 40 mg IVP Q12H KIMBERLEE Last Admin: 03/19/18 13:49 Dose: 40 mg - Labs Labs: 03/19/18 06:33 03/19/18 06:33 PT 16.8 SECONDS (9.7-12.2) H D 03/19/18 06:33 INR 1.5 D 03/19/18 06:33 APTT 37 SECONDS (21-34) H 03/18/18 12:57
--- NOTE | 2018-03-19 21:01 | CP.CCUPN ---
<Rhonda Espinosa - Last Filed: 03/19/18 20:58> CCU Subjective - Physician Review Subjective (Free Text): Patient seen and examined at bedside. Patient reports she feels better today, breathing easier, but admits to feeling her heart race. CCU Objective - Vital Signs / Intake & Output Vital Signs (Last 4 hours): Vital Signs Pulse Resp BP Pulse Ox 03/19/18 19:00 106 H 11 L 68 L 03/19/18 18:55 100 H 29 H 131/64 98 03/19/18 18:00 111 H 17 03/19/18 17:57 109 H 28 H 139/81 03/19/18 17:00 122 H 14 Intake and Output (Last 8hrs): Intake & Output 03/19/18 03/19/18 03/19/18 06:59 14:59 22:59 Intake Total 1009 528.5 166.5 Output Total 450 350 250 Balance 559 178.5 -83.5 Weight 147 lb 0.773 oz Intake: Intake, IV Amount 0 166.5 166.5 Right Antecubital 0 Right Forearm 0 166.5 166.5 Oral 362 Blood Product 959 Red Blood Cells Cpd As1 325 Lr Unit [id number] Other 50 Red Blood Cells Cpd As1 50 Lr Unit [id number] Output: Urine 450 250 Urine, Voided 450 250 Stool 350 Other: # Voids Urine, Voided 1 1 # Bowel Movements 1 1 1 - Physical Exam Other physical findings (Free Text): - Constitutional Appears: No Acute Distress - Head Exam Head Exam: NORMAL INSPECTION, NORMOCEPHALIC - Eye Exam Eye Exam: EOMI, Normal appearance, PERRL Pupil Exam: NORMAL ACCOMODATION - ENT Exam ENT Exam: Mucous Membranes Dry - Respiratory Exam Respiratory Exam: Clear to Auscultation Bilateral. absent: Decreased Breath Sounds - Cardiovascular Exam Cardiovascular Exam: Tachycardia - GI/Abdominal Exam GI & Abdominal Exam: Normal Bowel Sounds, Soft. absent: Distended, Tenderness - Extremities Exam Extremities exam: Positive for: normal inspection, pedal pulses present. Negative for: pedal edema, tenderness - Back Exam Back exam: NORMAL INSPECTION - Neurological Exam Neurological exam: Alert, CN II-XII Intact, Oriented x3 - Psychiatric Exam Psychiatric exam: Normal Affect, Normal Mood - Skin Skin Exam: Dry, Intact, Normal Color, Warm - Medications Active Medications: Active Medications Generic Name Dose Route Start Last Admin Trade Name Freq PRN Reason Stop Dose Admin Amiodarone HCl 100 mg 03/20/18 10:00 Cordarone PO DAILY [facility] Amiodarone HCl 900 mg/ 500 mls @ 33.33 mls/hr 03/19/18 08:16 03/19/18 10:09 Dextrose IV 03/19/18 23:16 33.33 mls/hr .Q15H1M ONE Administration Protocol 1 MG/MIN Amiodarone HCl 900 mg/ 500 mls @ 16.66 mls/hr 03/19/18 23:17 Dextrose IV 03/20/18 23:16 .Q24H ONE Protocol 0.5 MG/MIN Levothyroxine Sodium 25 mcg 03/19/18 06:30 03/19/18 06:20 Synthroid PO 25 mcg Q24H KIMBERLEE Administration Metoprolol Succinate 25 mg 03/20/18 10:00 Toprol Xl PO DAILY [facility] Ondansetron HCl 4 mg 03/18/18 14:30 Zofran Inj IVP Q6H PRN Nausea/Vomiting Pantoprazole Sodium 40 mg 03/19/18 02:00 03/19/18 13:49 Protonix Inj IVP 40 mg Q12H KIMBERLEE Administration - Patient Studies Lab Studies: Lab Studies 03/19/18 03/19/18 03/19/18 Range/Units 10:22 06:33 06:33 WBC (4.8-10.8) K/uL RBC (3.80-5.20) Mil/uL Hgb (11.0-16.0) g/dL Hct (34.0-47.0) % MCV (81.0-99.0) fL MCH (27.0-31.0) pg MCHC (33.0-37.0) g/dL RDW (11.5-14.5) % Plt Count (130-400) K/uL MPV (7.2-11.7) fL Neut % (Auto) (50.0-75.0) % Lymph % (Auto) (20.0-40.0) % Berks % (Auto) (0.0-10.0) % Eos % (Auto) (0.0-4.0) % Baso % (Auto) (0.0-2.0) % Neut # (Auto) (1.8-7.0) K/uL Lymph # (Auto) (1.0-4.3) K/uL Berks # (Auto) (0.0-0.8) K/uL Eos # (Auto) (0.0-0.7) K/uL Baso # (Auto) (0.0-0.2) K/uL Neutrophils % (Manual) (50-75) % Band Neutrophils % (0-2) % Lymphocytes % (Manual) (20-40) % Reactive Lymphs % (0-0) % Monocytes % (Manual) (0-10) % Eosinophils % (Manual) (0-4) % Platelet Estimate (NORMAL) Hypochromasia (manual) Anisocytosis (manual) PT 16.8 H D (9.7-12.2) SECONDS INR 1.5 D Plt Function Assay 49 K/uL Puncture Site pCO2 (35-45) mm/Hg pO2 (80-100) mm/Hg HCO3 (21-28) mmol/L ABG pH (7.35-7.45) ABG Total CO2 (22-28) mmol/L ABG O2 Saturation (95-98) % ABG Base Excess (-2.0-3.0) mmol/L ABG Hemoglobin (11.7-17.4) g/dL ABG Carboxyhemoglobin (0.5-1.5) % POC ABG HHb (Measured) (0.0-5.0) % ABG Methemoglobin (0.0-3.0) % Gregory Test A-a O2 Difference mm/Hg Respiratory Index Hgb O2 Saturation (95.0-98.0) % Liter Flow FiO2 % Sodium (132-148) mmol/L Potassium (3.6-5.2) mmol/L Chloride (98-107) mmol/L Carbon Dioxide (22-30) mmol/L Anion Gap (10-20) BUN (7-17) mg/dL Creatinine (0.7-1.2) mg/dL Est GFR ( Amer) Est GFR (Non-Af Amer) Random Glucose (65-105) mg/dL Calcium (8.6-10.4) mg/dl Phosphorus (2.5-4.5) mg/dL Magnesium (1.6-2.3) mg/dL Total Bilirubin (0.2-1.3) mg/dL AST (14-36) U/L ALT (9-52) U/L Alkaline Phosphatase (38-126) U/L Total Protein (6.3-8.3) g/dL Albumin (3.5-5.0) g/dL Globulin (2.2-3.9) gm/dL Albumin/Globulin Ratio (1.0-2.1) Free T4 2.31 H (0.78-2.19) ng/dL TSH 3rd Generation (0.46-4.68) mIU/L Stool Occult Blood (NEGATIVE) Blood Type Blood Type Confirm Antibody Screen 03/19/18 03/19/18 03/19/18 Range/Units 06:33 06:33 06:14 WBC 2.9 L (4.8-10.8) K/uL RBC 3.75 L (3.80-5.20) Mil/uL Hgb 10.1 L (11.0-16.0) g/dL Hct 30.4 L (34.0-47.0) % MCV 81.1 (81.0-99.0) fL MCH 26.9 L (27.0-31.0) pg MCHC 33.2 (33.0-37.0) g/dL RDW 17.2 H (11.5-14.5) % Plt Count 59 L (130-400) K/uL MPV 9.7 (7.2-11.7) fL Neut % (Auto) 71.7 (50.0-75.0) % Lymph % (Auto) 9.5 L (20.0-40.0) % Berks % (Auto) 16.8 H (0.0-10.0) % Eos % (Auto) 1.0 (0.0-4.0) % Baso % (Auto) 1.0 (0.0-2.0) % Neut # (Auto) 2.1 (1.8-7.0) K/uL Lymph # (Auto) 0.3 L (1.0-4.3) K/uL Berks # (Auto) 0.5 (0.0-0.8) K/uL Eos # (Auto) 0.0 (0.0-0.7) K/uL Baso # (Auto) 0.0 (0.0-0.2) K/uL Neutrophils % (Manual) 67 (50-75) % Band Neutrophils % 6 H (0-2) % Lymphocytes % (Manual) 10 L (20-40) % Reactive Lymphs % 1 H (0-0) % Monocytes % (Manual) 15 H (0-10) % Eosinophils % (Manual) 1 (0-4) % Platelet Estimate Decreased L (NORMAL) Hypochromasia (manual) Slight Anisocytosis (manual) Slight PT (9.7-12.2) SECONDS INR Plt Function Assay K/uL Puncture Site pCO2 (35-45) mm/Hg pO2 (80-100) mm/Hg HCO3 (21-28) mmol/L ABG pH (7.35-7.45) ABG Total CO2 (22-28) mmol/L ABG O2 Saturation (95-98) % ABG Base Excess (-2.0-3.0) mmol/L ABG Hemoglobin (11.7-17.4) g/dL ABG Carboxyhemoglobin (0.5-1.5) % POC ABG HHb (Measured) (0.0-5.0) % ABG Methemoglobin (0.0-3.0) % Gregory Test A-a O2 Difference mm/Hg Respiratory Index Hgb O2 Saturation (95.0-98.0) % Liter Flow FiO2 % Sodium 134 (132-148) mmol/L Potassium 4.9 (3.6-5.2) mmol/L Chloride 98 (98-107) mmol/L Carbon Dioxide 25 (22-30) mmol/L Anion Gap 16 (10-20) BUN 41 H (7-17) mg/dL Creatinine 1.4 H (0.7-1.2) mg/dL Est GFR ( Amer) 43 Est GFR (Non-Af Amer) 36 Random Glucose 98 (65-105) mg/dL Calcium 8.4 L (8.6-10.4) mg/dl Phosphorus 4.3 (2.5-4.5) mg/dL Magnesium 1.9 (1.6-2.3) mg/dL Total Bilirubin 1.5 H (0.2-1.3) mg/dL AST 94 H D (14-36) U/L ALT 79 H D (9-52) U/L Alkaline Phosphatase 211 H D (38-126) U/L Total Protein 6.1 L (6.3-8.3) g/dL Albumin 3.3 L (3.5-5.0) g/dL Globulin 2.7 (2.2-3.9) gm/dL Albumin/Globulin Ratio 1.2 (1.0-2.1) Free T4 (0.78-2.19) ng/dL TSH 3rd Generation 1.77 (0.46-4.68) mIU/L Stool Occult Blood Negative (NEGATIVE) Blood Type Blood Type Confirm Antibody Screen 03/19/18 03/19/18 03/18/18 Range/Units 04:40 00:10 11:38 WBC 2.3 L (4.8-10.8) K/uL RBC 3.09 L (3.80-5.20) Mil/uL Hgb 8.3 L (11.0-16.0) g/dL Hct 24.6 L (34.0-47.0) % MCV 79.7 L (81.0-99.0) fL MCH 27.0 (27.0-31.0) pg MCHC 33.9 (33.0-37.0) g/dL RDW 17.8 H (11.5-14.5) % Plt Count 55 L (130-400) K/uL MPV 9.6 (7.2-11.7) fL Neut % (Auto) (50.0-75.0) % Lymph % (Auto) (20.0-40.0) % Berks % (Auto) (0.0-10.0) % Eos % (Auto) (0.0-4.0) % Baso % (Auto) (0.0-2.0) % Neut # (Auto) (1.8-7.0) K/uL Lymph # (Auto) (1.0-4.3) K/uL Berks # (Auto) (0.0-0.8) K/uL Eos # (Auto) (0.0-0.7) K/uL Baso # (Auto) (0.0-0.2) K/uL Neutrophils % (Manual) (50-75) % Band Neutrophils % (0-2) % Lymphocytes % (Manual) (20-40) % Reactive Lymphs % (0-0) % Monocytes % (Manual) (0-10) % Eosinophils % (Manual) (0-4) % Platelet Estimate (NORMAL) Hypochromasia (manual) Anisocytosis (manual) PT (9.7-12.2) SECONDS INR Plt Function Assay K/uL Puncture Site Rb pCO2 37 (35-45) mm/Hg pO2 83 (80-100) mm/Hg HCO3 26.8 (21-28) mmol/L ABG pH 7.46 H (7.35-7.45) ABG Total CO2 27.4 (22-28) mmol/L ABG O2 Saturation 98.0 (95-98) % ABG Base Excess 2.4 (-2.0-3.0) mmol/L ABG Hemoglobin 10.0 L (11.7-17.4) g/dL ABG Carboxyhemoglobin 2.0 H (0.5-1.5) % POC ABG HHb (Measured) 1.9 (0.0-5.0) % ABG Methemoglobin 0.9 (0.0-3.0) % Gregory Test Na A-a O2 Difference 99.0 mm/Hg Respiratory Index 1.2 Hgb O2 Saturation 95.2 (95.0-98.0) % Liter Flow 3.0 FiO2 32.0 % Sodium (132-148) mmol/L Potassium (3.6-5.2) mmol/L Chloride (98-107) mmol/L Carbon Dioxide (22-30) mmol/L Anion Gap (10-20) BUN (7-17) mg/dL Creatinine (0.7-1.2) mg/dL Est GFR ( Amer) Est GFR (Non-Af Amer) Random Glucose (65-105) mg/dL Calcium (8.6-10.4) mg/dl Phosphorus (2.5-4.5) mg/dL Magnesium (1.6-2.3) mg/dL Total Bilirubin (0.2-1.3) mg/dL AST (14-36) U/L ALT (9-52) U/L Alkaline Phosphatase (38-126) U/L Total Protein (6.3-8.3) g/dL Albumin (3.5-5.0) g/dL Globulin (2.2-3.9) gm/dL Albumin/Globulin Ratio (1.0-2.1) Free T4 (0.78-2.19) ng/dL TSH 3rd Generation (0.46-4.68) mIU/L Stool Occult Blood (NEGATIVE) Blood Type O POSITIVE Blood Type Confirm O POSITIVE Antibody Screen Negative Laboratory Results - last 24 hr 03/18/18 03/19/18 03/19/18 11:38 00:10 04:40 WBC 2.3 L RBC 3.09 L Hgb 8.3 L Hct 24.6 L MCV 79.7 L MCH 27.0 MCHC 33.9 RDW 17.8 H Plt Count 55 L MPV 9.6 Neut % (Auto) Lymph % (Auto) Berks % (Auto) Eos % (Auto) Baso % (Auto) Neut # (Auto) Lymph # (Auto) Berks # (Auto) Eos # (Auto) Baso # (Auto) Neutrophils % (Manual) Band Neutrophils % Lymphocytes % (Manual) Reactive Lymphs % Monocytes % (Manual) Eosinophils % (Manual) Platelet Estimate Hypochromasia (manual) Anisocytosis (manual) PT INR Plt Function Assay Puncture Site Rb pCO2 37 pO2 83 HCO3 26.8 ABG pH 7.46 H ABG Total CO2 27.4 ABG O2 Saturation 98.0 ABG Base Excess 2.4 ABG Hemoglobin 10.0 L ABG Carboxyhemoglobin 2.0 H POC ABG HHb (Measured) 1.9 ABG Methemoglobin 0.9 Gregory Test Na A-a O2 Difference 99.0 Respiratory Index 1.2 Hgb O2 Saturation 95.2 Liter Flow 3.0 FiO2 32.0 Sodium Potassium Chloride Carbon Dioxide Anion Gap BUN Creatinine Est GFR ( Amer) Est GFR (Non-Af Amer) Random Glucose Calcium Phosphorus Magnesium Total Bilirubin AST ALT Alkaline Phosphatase Total Protein Albumin Globulin Albumin/Globulin Ratio Free T4 TSH 3rd Generation Stool Occult Blood Blood Type O POSITIVE Blood Type Confirm O POSITIVE Antibody Screen Negative 03/19/18 03/19/18 03/19/18 06:14 06:33 06:33 WBC 2.9 L RBC 3.75 L Hgb 10.1 L Hct 30.4 L MCV 81.1 MCH 26.9 L MCHC 33.2 RDW 17.2 H Plt Count 59 L MPV 9.7 Neut % (Auto) 71.7 Lymph % (Auto) 9.5 L Berks % (Auto) 16.8 H Eos % (Auto) 1.0 Baso % (Auto) 1.0 Neut # (Auto) 2.1 Lymph # (Auto) 0.3 L Berks # (Auto) 0.5 Eos # (Auto) 0.0 Baso # (Auto) 0.0 Neutrophils % (Manual) 67 Band Neutrophils % 6 H Lymphocytes % (Manual) 10 L Reactive Lymphs % 1 H Monocytes % (Manual) 15 H Eosinophils % (Manual) 1 Platelet Estimate Decreased L Hypochromasia (manual) Slight Anisocytosis (manual) Slight PT INR Plt Function Assay Puncture Site pCO2 pO2 HCO3 ABG pH ABG Total CO2 ABG O2 Saturation ABG Base Excess ABG Hemoglobin ABG Carboxyhemoglobin POC ABG HHb (Measured) ABG Methemoglobin Gregory Test A-a O2 Difference Respiratory Index Hgb O2 Saturation Liter Flow FiO2 Sodium 134 Potassium 4.9 Chloride 98 Carbon Dioxide 25 Anion Gap 16 BUN 41 H Creatinine 1.4 H Est GFR ( Amer) 43 Est GFR (Non-Af Amer) 36 Random Glucose 98 Calcium 8.4 L Phosphorus 4.3 Magnesium 1.9 Total Bilirubin 1.5 H AST 94 H D ALT 79 H D Alkaline Phosphatase 211 H D Total Protein 6.1 L Albumin 3.3 L Globulin 2.7 Albumin/Globulin Ratio 1.2 Free T4 TSH 3rd Generation 1.77 Stool Occult Blood Negative Blood Type Blood Type Confirm Antibody Screen 03/19/18 03/19/18 03/19/18 06:33 06:33 10:22 WBC RBC Hgb Hct MCV MCH MCHC RDW Plt Count MPV Neut % (Auto) Lymph % (Auto) Berks % (Auto) Eos % (Auto) Baso % (Auto) Neut # (Auto) Lymph # (Auto) Berks # (Auto) Eos # (Auto) Baso # (Auto) Neutrophils % (Manual) Band Neutrophils % Lymphocytes % (Manual) Reactive Lymphs % Monocytes % (Manual) Eosinophils % (Manual) Platelet Estimate Hypochromasia (manual) Anisocytosis (manual) PT 16.8 H D INR 1.5 D Plt Function Assay 49 Puncture Site pCO2 pO2 HCO3 ABG pH ABG Total CO2 ABG O2 Saturation ABG Base Excess ABG Hemoglobin ABG Carboxyhemoglobin POC ABG HHb (Measured) ABG Methemoglobin Gregory Test A-a O2 Difference Respiratory Index Hgb O2 Saturation Liter Flow FiO2 Sodium Potassium Chloride Carbon Dioxide Anion Gap BUN Creatinine Est GFR ( Amer) Est GFR (Non-Af Amer) Random Glucose Calcium Phosphorus Magnesium Total Bilirubin AST ALT Alkaline Phosphatase Total Protein Albumin Globulin Albumin/Globulin Ratio Free T4 2.31 H TSH 3rd Generation Stool Occult Blood Blood Type Blood Type Confirm Antibody Screen Fingerstick Blood Sugar Results: 142 Critical Care Progress Note - Nutrition Nutrition: Nutrition Category Date Time Status Liquid Diet [DIET] Diets 03/19/18 Lunch Active Assessment/Plan - Assessment and Plan (Free Text) Assessment: This is an 87 year old female with PMHx of Atrial Fibrillation, CAD s/p LAD stent, with Multi-vessel Disease, HTN, Pacemaker, and s/p TAVR x2 presents to the ED with fatigue and weakness x several days and s/p fall. Patient was trying to get to the bathroom where she felt dizzy and fell forward, she reports she did not hit her head. Admitted to shortness of breath, is speaking in small phrases. Patient was admitted for anemia suspected GI bleed, OLIVIA, and thrombocytopenia. Denied fever, chills, headache, chest pain, abdominal pain, denied any hemoptysis, coffee ground emesis, BRBPR, melena, or black tarry stool. S/P EGD 03/19 with findings: non-bleeding esophageal ulcer, non-bleeding duodenal ulcer with no stimata of bleeding. Plan: Neuro: A: Unsteady gait, S/P Fall, on AC - Head CT, Elbow Xray, Femur XRAY, Hip/pelvis Xray - all normal - no acute bleeding or fracture Cardio: A: Atrial Fibrillation - ASA, Eliquis 5mg PO BID - held 2/2 anemia - Resumed Amiodarone 100mg PO daily, lopressor 25mg PO daily A: CAD s/p LAD stent, with Multi-vessel Disease A: HTN A: Pacemaker A: History of Aortic Valve Disease s/p TAVR A: Dyslipidemia - Will need omega 3, fish oil, niacin outpatient to increase HDL Cleared by Dr. Gaitan 03/18/18 for EGD, Colonoscopy - Assessed as low to intermediate risk for cardiac events for EGD and Colonoscopy. Given patient clinical condition recommend to proceed with EGD and Colonoscopy Pulm: A: Respiratory Distress - Started on BiPAP PRN GI: A: Suspected GI Bleed - Hemoglobin baseline is 11 - Hemoglobin on admission is 6.8 - was slowly downtrending from prior outpatient labs - Denied any hemoptysis, coffee ground emesis, BRBPR, melena, or black tarry stool - PPI Q12H - Stool occult: negative - S/P EGD 03/19 with findings: non-bleeding esophageal ulcer, non-bleeding duodenal ulcer with no stimata of bleeding Endo: A: Hypothyroidism - Synthroid 25mcg Heme/ Onc: A: Anemia - ??GIB - Hemoglobin baseline is 11 - Hemoglobin on admission is 6.8 - was slowly downtrending from prior outpatient labs - Denied any hemoptysis, coffee ground emesis, BRBPR, melena, or black tarry stool - F/U iron panel - Denied any previous EGD or Colonoscopy - Will be given 2 PRBCs, 1 FFP, and 1 Plateletphresis - S/P EGD 03/19 with findings: non-bleeding esophageal ulcer, non-bleeding duodenal ulcer with no stimata of bleeding A: Coagulopathy - INR 2.0 on admission, 1.5 now - Vitamin K, FFP - Continue to monitor A: Pancytopenia -- Dr. Collins consulted - mild tbili elevation; will fractionate bilirubin, LDH, haptoglobin ? hemolysis ; will check retic count, b12, folate to further characterize anemia - Continue to monitor Renal: A: OLIVIA - improving - Normal renal function at baseline - 1.8 on admission - Continue with IVF, monitor Prophylaxis - PPI Q12 - SCDs, VTE c/i due to ?GIB - Started CLD DW Rhonda Wang DO, PGY-1 <Markus Jules - Last Filed: 03/21/18 21:18> CCU Objective - Vital Signs / Intake & Output Vital Signs (Last 4 hours): Vital Signs Temp Pulse Resp BP Pulse Ox 03/21/18 20:00 97.8 F 92 H 16 98 03/21/18 19:00 111 H 20 03/21/18 18:24 93 H 21 122/56 L 03/21/18 18:00 76 22 03/21/18 17:24 78 10 L 114/58 L Intake and Output (Last 8hrs): Intake & Output 03/21/18 03/21/1803/21/18 06:59 14:59 22:59 Intake Total 0 750 300 Output Total 450 350 150 Balance -450 400 150 Weight 151 lb 0.266 oz Intake: Intake, IV Amount 0 0 0 Right Forearm 0 0 0 Oral 750 300 Output: Urine 450 350 150 Urine, Voided 450 350 150 Other: # Voids Urine, Voided 0 0 # Bowel Movements 0 0 - Medications Active Medications: Active Medications Generic Name Dose Route Start Last Admin Trade Name Freq PRN Reason Stop Dose Admin Acetaminophen 650 mg 03/20/18 20:59 03/21/18 19:56 Tylenol 325mg Tab PO 650 mg Q6H PRN Administration Headache Diltiazem HCl 60 mg 03/21/18 08:56 03/21/18 21:13 Cardizem PO 60 mg Q8 KIMBERLEE Administration Docusate Sodium 100 mg 03/22/18 10:00 Colace PO TID KIMBERLEE Levothyroxine Sodium 25 mcg 03/19/18 06:30 03/21/18 07:27 Synthroid PO 25 mcg Q24H KIMBERLEE Administration Metoprolol Succinate 100 mg 03/21/18 10:00 03/21/18 09:56 Toprol Xl PO 100 mg DAILY KIMBERLEE Administration Pantoprazole Sodium 40 mg 03/19/18 02:00 03/21/18 14:08 Protonix Inj IVP 40 mg Q12H KIMBERLEE Administration - Patient Studies Lab Studies: Lab Studies 03/21/18 03/21/18 Range/Units 06:48 06:48 WBC 2.6 L (4.8-10.8) K/uL RBC 3.77 L (3.80-5.20) Mil/uL Hgb 10.2 L (11.0-16.0) g/dL Hct 30.7 L (34.0-47.0) % MCV 81.4 (81.0-99.0) fL MCH 27.1 (27.0-31.0) pg MCHC 33.2 (33.0-37.0) g/dL RDW 17.4 H (11.5-14.5) % Plt Count 68 L (130-400) K/uL MPV 9.6 (7.2-11.7) fL Neut % (Auto) 62.3 (50.0-75.0) % Lymph % (Auto) 16.7 L (20.0-40.0) % Berks % (Auto) 15.7 H (0.0-10.0) % Eos % (Auto) 4.2 H (0.0-4.0) % Baso % (Auto) 1.1 (0.0-2.0) % Neut # (Auto) 1.6 L (1.8-7.0) K/uL Lymph # (Auto) 0.4 L (1.0-4.3) K/uL Berks # (Auto) 0.4 (0.0-0.8) K/uL Eos # (Auto) 0.1 (0.0-0.7) K/uL Baso # (Auto) 0.0 (0.0-0.2) K/uL Sodium 136 (132-148) mmol/L Potassium 4.3 (3.6-5.2) mmol/L Chloride 102 (98-107) mmol/L Carbon Dioxide 24 (22-30) mmol/L Anion Gap 14 (10-20) BUN 29 H (7-17) mg/dL Creatinine 1.1 (0.7-1.2) mg/dL Est GFR ( Amer) 57 Est GFR (Non-Af Amer) 47 Random Glucose 107 H (65-105) mg/dL Calcium 9.3 (8.6-10.4) mg/dl Phosphorus 5.0 H (2.5-4.5) mg/dL Magnesium 1.9 (1.6-2.3) mg/dL Total Bilirubin 1.1 (0.2-1.3) mg/dL AST 118 H (14-36) U/L ALT 91 H (9-52) U/L Alkaline Phosphatase 319 H (38-126) U/L Total Protein 6.0 L (6.3-8.3) g/dL Albumin 3.0 L (3.5-5.0) g/dL Globulin 3.0 (2.2-3.9) gm/dL Albumin/Globulin Ratio 1.0 (1.0-2.1) Laboratory Results - last 24 hr 03/21/18 03/21/18 06:48 06:48 WBC 2.6 L RBC 3.77 L Hgb 10.2 L Hct 30.7 L MCV 81.4 MCH 27.1 MCHC 33.2 RDW 17.4 H Plt Count 68 L MPV 9.6 Neut % (Auto) 62.3 Lymph % (Auto) 16.7 L [place] % (Auto) 15.7 H Eos % (Auto) 4.2 H Baso % (Auto) 1.1 Neut # (Auto) 1.6 L Lymph # (Auto) 0.4 L [place] # (Auto) 0.4 Eos # (Auto) 0.1 Baso # (Auto) 0.0 Sodium 136 Potassium 4.3 Chloride 102 Carbon Dioxide 24 Anion Gap 14 BUN 29 H Creatinine 1.1 Est GFR ( Amer) 57 Est GFR (Non-Af Amer) 47 Random Glucose 107 H Calcium 9.3 Phosphorus 5.0 H Magnesium 1.9 Total Bilirubin 1.1 AST 118 H ALT 91 H Alkaline Phosphatase 319 H Total Protein 6.0 L Albumin 3.0 L Globulin 3.0 Albumin/Globulin Ratio 1.0 Critical Care Progress Note - Nutrition Nutrition: Nutrition Category Date Time Status Heart Healthy Diet [DIET] Diets 03/21/18 Dinner Active Attending/Attestation - Attestation I have personally seen and examined this patient.: Yes I have fully participated in the care of the patient.: Yes I have reviewed all pertinent clinical information: Yes Notes (Text): 03/19/18 21:17 Today: February The Patient was seen and examined at the bedside, Medical records reviewed, and management issues were discussed and formulated with the house staff. I have reviewed all the relevant clinical, laboratory, hemodynamic, radiographic data and medications Events reviewed Pain issues, skin care, head of the bed elevation, glycemic control were addressed. Agree with above resident's assessment and treatment plans of care as transcribed in Dr. Espinosa note.
--- NOTE | 2018-03-19 23:34 | CP.PCM.PN ---
Subjective - Date & Time of Evaluation Date of Evaluation: 03/19/18 Time of Evaluation: 17:45 - Subjective Subjective: Patient seen and evaluated feels a little better S/P PRBC Physical Examination - Physical Exam Other physical findings (Free Text): - Constitutional Appears: No Acute Distress - Head Exam Head Exam: NORMAL INSPECTION, NORMOCEPHALIC - Eye Exam Eye Exam: EOMI, Normal appearance, PERRL Pupil Exam: NORMAL ACCOMODATION - ENT Exam ENT Exam: Mucous Membranes Dry - Respiratory Exam Respiratory Exam: Clear to Auscultation Bilateral. absent: Decreased Breath Sounds - Cardiovascular Exam Cardiovascular Exam: Tachycardia - GI/Abdominal Exam GI & Abdominal Exam: Normal Bowel Sounds, Soft. absent: Distended, Tenderness - Extremities Exam Extremities exam: Positive for: normal inspection, pedal pulses present. Negative for: pedal edema, tenderness - Back Exam Back exam: NORMAL INSPECTION - Neurological Exam Neurological exam: Alert, CN II-XII Intact, Oriented x3 - Psychiatric Exam Psychiatric exam: Normal Affect, Normal Mood - Skin Skin Exam: Dry, Intact, Normal Color, Warm Objective - Vital Signs/Intake and Output Vital Signs (last 24 hours): Temp Pulse Resp BP Pulse Ox 99.3 F 106 H 11 L 131/64 68 L 03/19/18 16:00 03/19/18 19:00 03/19/18 19:00 03/19/18 18:55 03/19/18 19:00 Intake and Output: 03/19/18 03/20/18 18:59 06:59 Intake Total 661.7 33.3 Output Total 600 Balance 61.7 33.3 - Medications Medications: Current Medications Amiodarone HCl (Cordarone) 100 mg PO DAILY [facility] Amiodarone HCl 900 mg/ (Dextrose) 500 mls @ 16.66 mls/hr IV .Q24H ONE; 0.5 MG/ MIN PRN Reason: Protocol Stop: 03/20/18 23:16 Levothyroxine Sodium (Synthroid) 25 mcg PO Q24H [facility] Last Admin: 03/19/18 06:20 Dose: 25 mcg Metoprolol Succinate (Toprol Xl) 25 mg PO DAILY [facility] Ondansetron HCl (Zofran Inj) 4 mg IVP Q6H PRN PRN Reason: Nausea/Vomiting Pantoprazole Sodium (Protonix Inj) 40 mg IVP Q12H [facility] Last Admin: 03/19/18 13:49 Dose: 40 mg - Labs Labs: 03/19/18 06:33 03/19/18 06:33 PT 16.8 SECONDS (9.7-12.2) H D 03/19/18 06:33 INR 1.5 D 03/19/18 06:33 APTT 37 SECONDS (21-34) H 03/18/18 12:57 Assessment and Plan - Assessment and Plan (Free Text) Assessment: This is an 87 year old female with PMHx of Atrial Fibrillation, CAD s/p LAD stent, with Multi-vessel Disease, HTN, Pacemaker, and s/p TAVR x2 presents to the ED with fatigue and weakness x several days and s/p fall. Patient was trying to get to the bathroom where she felt dizzy and fell forward, she reports she did not hit her head. Admitted to shortness of breath, is speaking in small phrases. Patient was admitted for anemia suspected GI bleed, OLIVIA, and thrombocytopenia. Denied fever, chills, headache, chest pain, abdominal pain, denied any hemoptysis, coffee ground emesis, BRBPR, melena, or black tarry stool. S/P EGD 03/19 with findings: non-bleeding esophageal ulcer, non-bleeding duodenal ulcer with no stimata of bleeding. Plan: Neuro: A: Unsteady gait, S/P Fall, on AC - Head CT, Elbow Xray, Femur XRAY, Hip/pelvis Xray - all normal - no acute bleeding or fracture Cardio: A: Atrial Fibrillation - ASA, Eliquis 5mg PO BID - held 2/2 anemia - Resumed Amiodarone 100mg PO daily, lopressor 25mg PO daily A: CAD s/p LAD stent, with Multi-vessel Disease A: HTN A: Pacemaker A: History of Aortic Valve Disease s/p TAVR A: Dyslipidemia - Will need omega 3, fish oil, niacin outpatient to increase HDL Cleared for EGD, Colonoscopy - Assessed as low to intermediate risk for cardiac events for EGD and Colonoscopy. Given patient clinical condition recommend to proceed with EGD and Colonoscopy Pulm: A: Respiratory Distress - Started on BiPAP PRN GI: A: Suspected GI Bleed - Hemoglobin baseline is 11 - Hemoglobin on admission is 6.8 - was slowly downtrending from prior outpatient labs - Denied any hemoptysis, coffee ground emesis, BRBPR, melena, or black tarry stool - PPI Q12H - Stool occult: negative - S/P EGD 03/19 with findings: non-bleeding esophageal ulcer, non-bleeding duodenal ulcer with no stimata of bleeding Endo: A: Hypothyroidism - Synthroid 25mcg Heme/ Onc: A: Anemia - ??GIB - Hemoglobin baseline is 11 - Hemoglobin on admission is 6.8 - was slowly downtrending from prior outpatient labs - Denied any hemoptysis, coffee ground emesis, BRBPR, melena, or black tarry stool - F/U iron panel - Denied any previous EGD or Colonoscopy - Will be given 2 PRBCs, 1 FFP, and 1 Plateletphresis - S/P EGD 03/19 with findings: non-bleeding esophageal ulcer, non-bleeding duodenal ulcer with no stimata of bleeding A: Coagulopathy - INR 2.0 on admission, 1.5 now - Vitamin K, FFP - Continue to monitor A: Pancytopenia -- Dr. Collins consulted - mild tbili elevation; will fractionate bilirubin, LDH, haptoglobin ? hemolysis ; will check retic count, b12, folate to further characterize anemia - Continue to monitor Renal: A: OLIVIA - improving - Normal renal function at baseline - 1.8 on admission - Continue with IVF, monitor Prophylaxis - PPI Q12 - SCDs, VTE c/i due to ?GIB - Started CLD
[2018-03-20] MEDS: Levothyroxine 25 MCG TAB PO SCH (05:40)
[2018-03-20 06:59] LABS: ALBUMIN 3.1 g/dL (3.5-5.0); CALCIUM 9.2 mg/dl (8.6-10.4)
[2018-03-20 07:02] LABS: BASO % 0.9 % (0.0-2.0); EOS # 0.1 K/uL (0.0-0.7); EOS % 1.8 % (0.0-4.0); HEMOGLOBIN 9.8 g/dL (11.0-16.0); LYMPH # 0.4 K/uL (1.0-4.3); LYMPH % 13.1 % (20.0-40.0); MEAN CELL VOLUME 80.6 fL (81.0-99.0); MEAN CORPUSCULAR HEMOGLOBIN 27.1 pg (27.0-31.0); MEAN CORPUSCULAR HGB CONC 33.6 g/dL (33.0-37.0); MEAN PLATELET VOLUME 9.6 fL (7.2-11.7); MONO # 0.4 K/uL (0.0-0.8); MONO % 15.2 % (0.0-10.0); NRBC % 0.2 % (0.0-2.0); RBC 3.63 Mil/uL (3.80-5.20); RED CELL DISTRIBUTION WIDTH 16.9 % (11.5-14.5); WHITE BLOOD COUNT 2.9 K/uL (4.8-10.8)
[2018-03-20 07:17] LABS: INR 1.3; PROTHROMBIN TIME 14.5 SECONDS (9.7-12.2)
--- NOTE | 2018-03-20 07:55 | CP.PCM.PN ---
Subjective - Date & Time of Evaluation Date of Evaluation: 03/20/18 Time of Evaluation: 07:53 - Subjective Subjective: f/u anemia Denies abd pain, RB, melena, fever, chills, CP, SOB, GAITAN, cough Objective - Vital Signs/Intake and Output Vital Signs (last 24 hours): Temp Pulse Resp BP Pulse Ox 97.7 F 99 H 23 112/82 97 03/20/18 04:00 03/20/18 07:01 03/20/18 07:01 03/20/18 07:01 03/20/18 07:01 Intake and Output: 03/20/18 03/20/18 06:59 18:59 Intake Total 623.4 16.7 Output Total 350 Balance 273.4 16.7 - Medications Medications: Current Medications Amiodarone HCl (Cordarone) 100 mg PO DAILY [facility] OF [facility] Amiodarone HCl 900 mg/ (Dextrose) 500 mls @ 16.66 mls/hr IV .Q24H ONE; 0.5 MG/ MIN PRN Reason: Protocol Stop: 03/20/18 23:16 Last Admin: 03/20/18 00:00 Dose: 16.66 mls/hr Levothyroxine Sodium (Synthroid) 25 mcg PO Q24H [facility] OF [facility] Last Admin: 03/20/18 05:40 Dose: 25 mcg Metoprolol Succinate (Toprol Xl) 25 mg PO DAILY [facility] OF [facility] Ondansetron HCl (Zofran Inj) 4 mg IVP Q6H PRN PRN Reason: Nausea/Vomiting Pantoprazole Sodium (Protonix Inj) 40 mg IVP Q12H [facility] OF [facility] Last Admin: 03/20/18 03:00 Dose: 40 mg - Labs Labs: 03/20/18 06:39 03/20/18 06:40 PT 14.5 SECONDS (9.7-12.2) H 03/20/18 06:50 INR 1.3 03/20/18 06:50 APTT 37 SECONDS (21-34) H 03/18/18 12:57 - Constitutional Appears: Non-toxic - Respiratory Exam Respiratory Exam: Clear to Ausculation Bilateral - Cardiovascular Exam Cardiovascular Exam: RRR - GI/Abdominal Exam GI & Abdominal Exam: Soft, Normal Bowel Sounds. absent: Guarding, Tenderness, Mass - Extremities Exam Extremities Exam: absent: Calf Tenderness - Neurological Exam Neurological Exam: Alert, Awake, Oriented x3 Assessment and Plan (1) Atrial fibrillation Status: Acute (2) HTN (hypertension) Status: Acute (3) Severe anemia Assessment & Plan: Endoscopy shows esoph ulcer, esophagitis, Duod ulcer. REC+- PPI BID, check Hb., advance diet Status: Acute (4) CAD (coronary artery disease) Status: Acute
[2018-03-20 08:02] LABS: FOLATE 13.7 ng/mL
[2018-03-20] MEDS ORDERED: Metoprolol Succinate 25 mg XL Tab PO SCH ×2 (10:00)
--- NOTE | 2018-03-20 11:57 | CP.CCUPN ---
<Rhonda Espinosa - Last Filed: 03/20/18 11:26> CCU Subjective - Physician Review Subjective (Free Text): Patient seen and examined at bedside. Patient reports she feels better today, but feels like her breathing is labored. CCU Objective - Vital Signs / Intake & Output Vital Signs (Last 4 hours): Vital Signs Temp Pulse Resp BP Pulse Ox 03/20/18 10:24 112/59 L 03/20/18 10:23 103 H 25 H 97 03/20/18 10:00 112 H 21 03/20/18 09:01 119 H 14 133/85 98 03/20/18 09:00 108 H 22 97 03/20/18 08:01 99 H 26 H 123/84 98 03/20/18 08:00 98.6 F 99 H 24 97 Intake and Output (Last 8hrs): Intake & Output 03/19/18 03/20/18 03/20/18 22:59 06:59 14:59 Intake Total 506.4 250.2 316.8 Output Total 250 350 300 Balance 256.4 -99.8 16.8 Weight 152 lb 1.903 oz Intake: Intake, IV Amount 266.4 150.2 66.8 Right Forearm 266.4 150.2 66.8 Oral 240 100 250 Output: Urine 250 350 300 Urine, Voided 250 350 300 Other: # Voids Urine, Voided 1 1 # Bowel Movements 1 1 - Physical Exam Head: Positive for: Atraumatic, Normocephalic Pupils: Positive for: PERRL Extroacular Muscles: Positive for: EOMI Conjunctiva: Positive for: Normal Mouth: Positive for: Moist Mucous Membranes Respiratory/Chest: Positive for: Decreased Breath Sounds Cardiovascular: Positive for: Irregular Rhythm, Tachycardic Abdomen: Positive for: Normal Bowel Sounds. Negative for: Tenderness, Distention Upper Extremity: Positive for: Normal Inspection, NORMAL PULSES, Capillary Refill < 2s Lower Extremity: Positive for: Normal Inspection, NORMAL PULSES, Neurovascularly Intact, Capillary Refill < 2 s Neurological: Positive for: GCS=15, CN II-XII Intact Skin: Positive for: Warm, Dry, Normal Color Psychiatric: Positive for: Alert, Oriented x 3, Normal Insight, Normal Concentration - Medications Active Medications: Active Medications Generic Name Dose Route Start Last Admin Trade Name Freq PRN Reason Stop Dose Admin Amiodarone HCl 900 mg/ 500 mls @ 16.66 mls/hr 03/19/18 23:17 03/20/18 00:00 Dextrose IV 03/20/18 23:16 16.66 mls/hr .Q24H ONE Administration Protocol 0.5 MG/MIN Levothyroxine Sodium 25 mcg 03/19/18 06:30 03/20/18 05:40 Synthroid PO 25 mcg Q24H [facility]E Administration Metoprolol Succinate 75 mg 03/20/18 10:00 03/20/18 10:15 Toprol Xl PO 75 mg DAILY [facility] Administration Ondansetron HCl 4 mg 03/18/18 14:30 Zofran Inj IVP Q6H PRN Nausea/Vomiting Pantoprazole Sodium 40 mg 03/19/18 02:00 03/20/18 03:00 Protonix Inj IVP 40 mg Q12H [facility]IMBER[facility]E Administration - Patient Studies Lab Studies: Microbiology Studies 03/18/18 15:34 MRSA Culture (Admit) - Final Naris MRSA NOT DETECTED Lab Studies 03/20/18 03/20/18 03/20/18 Range/Units 06:50 06:40 06:40 WBC (4.8-10.8) K/uL RBC (3.80-5.20) Mil/uL Hgb (11.0-16.0) g/dL Hct (34.0-47.0) % MCV (81.0-99.0) fL MCH (27.0-31.0) pg MCHC (33.0-37.0) g/dL RDW (11.5-14.5) % Plt Count (130-400) K/uL MPV (7.2-11.7) fL Neut % (Auto) (50.0-75.0) % Lymph % (Auto) (20.0-40.0) % Emmet % (Auto) (0.0-10.0) % Eos % (Auto) (0.0-4.0) % Baso % (Auto) (0.0-2.0) % Neut # (Auto) (1.8-7.0) K/uL Lymph # (Auto) (1.0-4.3) K/uL Emmet # (Auto) (0.0-0.8) K/uL Eos # (Auto) (0.0-0.7) K/uL Baso # (Auto) (0.0-0.2) K/uL Retic Count (0.5-1.5) % Haptoglobin 355.5 H (30.0-200.0) mg/dL PT 14.5 H (9.7-12.2) SECONDS INR 1.3 Sodium 135 (132-148) mmol/L Potassium 4.4 (3.6-5.2) mmol/L Chloride 98 (98-107) mmol/L Carbon Dioxide 26 (22-30) mmol/L Anion Gap 15 (10-20) BUN 28 H (7-17) mg/dL Creatinine 1.2 (0.7-1.2) mg/dL Est GFR ( Amer) 52 Est GFR (Non-Af Amer) 43 Random Glucose 105 (65-105) mg/dL Calcium 9.2 (8.6-10.4) mg/dl Phosphorus 3.6 (2.5-4.5) mg/dL Magnesium 1.8 (1.6-2.3) mg/dL Total Bilirubin 1.5 H (0.2-1.3) mg/dL AST 108 H (14-36) U/L ALT 85 H (9-52) U/L Alkaline Phosphatase 276 H D (38-126) U/L Lactate Dehydrogenase 1009 H (313-618) U/L Total Protein 6.2 L (6.3-8.3) g/dL Albumin 3.1 L (3.5-5.0) g/dL Globulin 3.1 (2.2-3.9) gm/dL Albumin/Globulin Ratio 1.0 (1.0-2.1) Vitamin B12 711 (239-931) pg/mL Folate 13.7 ng/mL 03/20/18 03/20/18 Range/Units 06:39 06:39 WBC 2.9 L (4.8-10.8) K/uL RBC 3.63 L (3.80-5.20) Mil/uL Hgb 9.8 L (11.0-16.0) g/dL Hct 29.3 L (34.0-47.0) % MCV 80.6 L (81.0-99.0) fL MCH 27.1 (27.0-31.0) pg MCHC 33.6 (33.0-37.0) g/dL RDW 16.9 H (11.5-14.5) % Plt Count 65 L (130-400) K/uL MPV 9.6 (7.2-11.7) fL Neut % (Auto) 69.0 (50.0-75.0) % Lymph % (Auto) 13.1 L (20.0-40.0) % Emmet % (Auto) 15.2 H (0.0-10.0) % Eos % (Auto) 1.8 (0.0-4.0) % Baso % (Auto) 0.9 (0.0-2.0) % Neut # (Auto) 2.0 (1.8-7.0) K/uL Lymph # (Auto) 0.4 L (1.0-4.3) K/uL Emmet # (Auto) 0.4 (0.0-0.8) K/uL Eos # (Auto) 0.1 (0.0-0.7) K/uL Baso # (Auto) 0.0 (0.0-0.2) K/uL Retic Count 1.2 (0.5-1.5) % Haptoglobin (30.0-200.0) mg/dL PT (9.7-12.2) SECONDS INR Sodium (132-148) mmol/L Potassium (3.6-5.2) mmol/L Chloride (98-107) mmol/L Carbon Dioxide (22-30) mmol/L Anion Gap (10-20) BUN (7-17) mg/dL Creatinine (0.7-1.2) mg/dL Est GFR ( Amer) Est GFR (Non-Af Amer) Random Glucose (65-105) mg/dL Calcium (8.6-10.4) mg/dl Phosphorus (2.5-4.5) mg/dL Magnesium (1.6-2.3) mg/dL Total Bilirubin (0.2-1.3) mg/dL AST (14-36) U/L ALT (9-52) U/L Alkaline Phosphatase (38-126) U/L Lactate Dehydrogenase (313-618) U/L Total Protein (6.3-8.3) g/dL Albumin (3.5-5.0) g/dL Globulin (2.2-3.9) gm/dL Albumin/Globulin Ratio (1.0-2.1) Vitamin B12 (239-931) pg/mL Folate ng/mL Laboratory Results - last 24 hr 03/20/18 03/20/18 03/20/18 06:39 06:39 06:40 WBC 2.9 L RBC 3.63 L Hgb 9.8 L Hct 29.3 L MCV 80.6 L MCH 27.1 MCHC 33.6 RDW 16.9 H Plt Count 65 L MPV 9.6 Neut % (Auto) 69.0 Lymph % (Auto) 13.1 L Emmet % (Auto) 15.2 H Eos % (Auto) 1.8 Baso % (Auto) 0.9 Neut # (Auto) 2.0 Lymph # (Auto) 0.4 L Emmet # (Auto) 0.4 Eos # (Auto) 0.1 Baso # (Auto) 0.0 Retic Count 1.2 Haptoglobin PT INR Sodium 135 Potassium 4.4 Chloride 98 Carbon Dioxide 26 Anion Gap 15 BUN 28 H Creatinine 1.2 Est GFR ( Amer) 52 Est GFR (Non-Af Amer) 43 Random Glucose 105 Calcium 9.2 Phosphorus 3.6 Magnesium 1.8 Total Bilirubin 1.5 H AST 108 H ALT 85 H Alkaline Phosphatase 276 H D Lactate Dehydrogenase 1009 H Total Protein 6.2 L Albumin 3.1 L Globulin 3.1 Albumin/Globulin Ratio 1.0 Vitamin B12 711 Folate 13.7 03/20/18 03/20/18 06:40 06:50 WBC RBC Hgb Hct MCV MCH MCHC RDW Plt Count MPV Neut % (Auto) Lymph % (Auto) Emmet % (Auto) Eos % (Auto) Baso % (Auto) Neut # (Auto) Lymph # (Auto) Emmet # (Auto) Eos # (Auto) Baso # (Auto) Retic Count Haptoglobin 355.5 H PT 14.5 H INR 1.3 Sodium Potassium Chloride Carbon Dioxide Anion Gap BUN Creatinine Est GFR ( Amer) Est GFR (Non-Af Amer) Random Glucose Calcium Phosphorus Magnesium Total Bilirubin AST ALT Alkaline Phosphatase Lactate Dehydrogenase Total Protein Albumin Globulin Albumin/Globulin Ratio Vitamin B12 Folate Fingerstick Blood Sugar Results: 142 Critical Care Progress Note - Nutrition Nutrition: Nutrition Category Date Time Status Soft [Dysphagia/Modified Consistency Diet] [DIET] Diets 03/20/18 Breakfast Active Assessment/Plan - Assessment and Plan (Free Text) Assessment: This is an 87 year old female with PMHx of Atrial Fibrillation, CAD s/p LAD stent, with Multi-vessel Disease, HTN, Pacemaker, and s/p TAVR x2 presents to the ED with fatigue and weakness x several days and s/p fall. Patient was trying to get to the bathroom where she felt dizzy and fell forward, she reports she did not hit her head. Admitted to shortness of breath, is speaking in small phrases. Patient was admitted for anemia suspected GI bleed, OLIVIA, and thrombocytopenia. Denied fever, chills, headache, chest pain, abdominal pain, denied any hemoptysis, coffee ground emesis, BRBPR, melena, or black tarry stool. S/P EGD 03/19 with findings: non-bleeding esophageal ulcer, non-bleeding duodenal ulcer with no stimata of bleeding. Plan: Neuro: A: Unsteady gait, S/P Fall, on AC - Head CT, Elbow Xray, Femur XRAY, Hip/pelvis Xray - all normal - no acute bleeding or fracture Cardio: A: Atrial Fibrillation - ASA, Eliquis 5mg PO BID - held 2/2 anemia - Increased lopressor 75mg PO daily A: CAD s/p LAD stent, with Multi-vessel Disease A: HTN A: Pacemaker A: History of Aortic Valve Disease s/p TAVR A: Dyslipidemia - Will need omega 3, fish oil, niacin outpatient to increase HDL Cleared by Dr. Gaitan 03/18/18 for EGD, Colonoscopy - Assessed as low to intermediate risk for cardiac events for EGD and Colonoscopy. Given patient clinical condition recommend to proceed with EGD and Colonoscopy Pulm: A: Respiratory Distress - Started on BiPAP PRN GI: A: Suspected GI Bleed - Hemoglobin baseline is 11 - Hemoglobin on admission is 6.8 - was slowly downtrending from prior outpatient labs - Denied any hemoptysis, coffee ground emesis, BRBPR, melena, or black tarry stool - PPI Q12H - Stool occult: negative - S/P EGD 03/19 with findings: non-bleeding esophageal ulcer, non-bleeding duodenal ulcer with no stimata of bleeding Endo: A: Hypothyroidism - Synthroid 25mcg Heme/ Onc: A: Anemia - ??GIB - Hemoglobin baseline is 11 - Hemoglobin on admission is 6.8 - was slowly downtrending from prior outpatient labs - Denied any hemoptysis, coffee ground emesis, BRBPR, melena, or black tarry stool - F/U iron panel - Denied any previous EGD or Colonoscopy - Will be given 2 PRBCs, 1 FFP, and 1 Plateletphresis - S/P EGD 03/19 with findings: non-bleeding esophageal ulcer, non-bleeding duodenal ulcer with no stimata of bleeding A: Coagulopathy - INR 2.0 on admission, 1.5 now - Vitamin K, FFP - Continue to monitor A: Pancytopenia -- Dr. Collins consulted - mild tbili elevation; will fractionate bilirubin, LDH, haptoglobin ? hemolysis ; will check retic count, b12, folate to further characterize anemia - Continue to monitor Renal: A: OLIVIA - improving - Normal renal function at baseline - 1.8 on admission - Continue with IVF, monitor Prophylaxis - PPI Q12 - SCDs, VTE c/i due to ?GIB - Started soft diet DW Rhonda Infante DO, PGY-1 <Cristiano Pittman M - Last Filed: 03/21/18 11:40> CCU Objective - Vital Signs / Intake & Output Vital Signs (Last 4 hours): Vital Signs Temp Pulse Resp BP Pulse Ox 03/21/18 10:00 98.2 F 107 H 16 98 03/21/18 09:24 93 H 8 L 124/64 90 L 03/21/18 09:00 105 H 9 L 96 03/21/18 08:24 117 H 12 123/79 100 03/21/18 08:00 96 H 14 89 L Intake and Output (Last 8hrs): Intake & Output 03/20/18 03/21/18 03/21/18 22:59 06:59 14:59 Intake Total 336.7 0 350 Output Total 1600 450 200 Balance -1263.3 -450 150 Weight 151 lb 0.266 oz Intake: Intake, IV Amount 16.7 0 0 Right Forearm 16.7 0 0 Oral 320 350 Output: Urine 1600 450 200 Urine, Voided 1600 450 200 Other: # Voids Urine, Voided 0 # Bowel Movements 0 - Medications Active Medications: Active Medications Generic Name Dose Route Start Last Admin Trade Name Danishq PRN Reason Stop Dose Admin Acetaminophen 650 mg 03/20/18 20:59 03/20/18 21:35 Tylenol 325mg Tab PO 650 mg Q6H PRN Administration Headache Diltiazem HCl 60 mg 03/21/18 08:56 Cardizem PO Q8 KIMBER[facility]E Levothyroxine Sodium 25 mcg 03/19/18 06:30 03/21/18 07:27 Synthroid PO 25 mcg Q24H K[facility]E Administration Metoprolol Succinate 100 mg 03/21/18 10:00 03/21/18 09:56 Toprol Xl PO 100 mg DAILY [facility]E Administration Pantoprazole Sodium 40 mg 03/19/18 02:00 03/21/18 02:57 Protonix Inj IVP 40 mg Q12H KIMBERLEE Administration - Patient Studies Lab Studies: Lab Studies 03/21/18 03/21/18 Range/Units 06:48 06:48 WBC 2.6 L (4.8-10.8) K/uL RBC 3.77 L (3.80-5.20) Mil/uL Hgb 10.2 L (11.0-16.0) g/dL Hct 30.7 L (34.0-47.0) % MCV 81.4 (81.0-99.0) fL MCH 27.1 (27.0-31.0) pg MCHC 33.2 (33.0-37.0) g/dL RDW 17.4 H (11.5-14.5) % Plt Count 68 L (130-400) K/uL MPV 9.6 (7.2-11.7) fL Neut % (Auto) 62.3 (50.0-75.0) % Lymph % (Auto) 16.7 L (20.0-40.0) % Emmet % (Auto) 15.7 H (0.0-10.0) % Eos % (Auto) 4.2 H (0.0-4.0) % Baso % (Auto) 1.1 (0.0-2.0) % Neut # (Auto) 1.6 L (1.8-7.0) K/uL Lymph # (Auto) 0.4 L (1.0-4.3) K/uL Emmet # (Auto) 0.4 (0.0-0.8) K/uL Eos # (Auto) 0.1 (0.0-0.7) K/uL Baso # (Auto) 0.0 (0.0-0.2) K/uL Sodium 136 (132-148) mmol/L Potassium 4.3 (3.6-5.2) mmol/L Chloride 102 (98-107) mmol/L Carbon Dioxide 24 (22-30) mmol/L Anion Gap 14 (10-20) BUN 29 H (7-17) mg/dL Creatinine 1.1 (0.7-1.2) mg/dL Est GFR ( Amer) 57 Est GFR (Non-Af Amer) 47 Random Glucose 107 H (65-105) mg/dL Calcium 9.3 (8.6-10.4) mg/dl Phosphorus 5.0 H (2.5-4.5) mg/dL Magnesium 1.9 (1.6-2.3) mg/dL Total Bilirubin 1.1 (0.2-1.3) mg/dL AST 118 H (14-36) U/L ALT 91 H (9-52) U/L Alkaline Phosphatase 319 H (38-126) U/L Total Protein 6.0 L (6.3-8.3) g/dL Albumin 3.0 L (3.5-5.0) g/dL Globulin 3.0 (2.2-3.9) gm/dL Albumin/Globulin Ratio 1.0 (1.0-2.1) Laboratory Results - last 24 hr 03/21/18 03/21/18 06:48 06:48 WBC 2.6 L RBC 3.77 L Hgb 10.2 L Hct 30.7 L MCV 81.4 MCH 27.1 MCHC 33.2 RDW 17.4 H Plt Count 68 L MPV 9.6 Neut % (Auto) 62.3 Lymph % (Auto) 16.7 L Emmet % (Auto) 15.7 H Eos % (Auto) 4.2 H Baso % (Auto) 1.1 Neut # (Auto) 1.6 L Lymph # (Auto) 0.4 L Emmet # (Auto) 0.4 Eos # (Auto) 0.1 Baso # (Auto) 0.0 Sodium 136 Potassium 4.3 Chloride 102 Carbon Dioxide 24 Anion Gap 14 BUN 29 H Creatinine 1.1 Est GFR ( Amer) 57 Est GFR (Non-Af Amer) 47 Random Glucose 107 H Calcium 9.3 Phosphorus 5.0 H Magnesium 1.9 Total Bilirubin 1.1 AST 118 H ALT 91 H Alkaline Phosphatase 319 H Total Protein 6.0 L Albumin 3.0 L Globulin 3.0 Albumin/Globulin Ratio 1.0 Critical Care Progress Note - Nutrition Nutrition: Nutrition Category Date Time Status Heart Healthy Diet [DIET] Diets 03/21/18 Dinner Active Soft [Dysphagia/Modified Consistency Diet] [DIET] Diets 03/20/18 Breakfast Active Assessment/Plan - Assessment and Plan (Free Text) Plan: Patient seen and examined at bedside. Patient with baseline anemia worsening symptossms. Patient off AC and antiplatelets. -Hb/hct stable -tolerating oral diet -A-fib: rate controlled with lopressor, not on AC 2nd severity of anemia -PT/oT -oob to chair -Patient remains hemodynamically stable. -Risks, benefits and alternatives explained regarding stopping AC in light of underlying A-fib. - Date & Time Date: 03/20/18 Time: 19:00
--- NOTE | 2018-03-20 14:06 | CP.PCM.PN ---
Subjective - Date & Time of Evaluation Date of Evaluation: 03/20/18 Time of Evaluation: 14:02 - Subjective Subjective: s/p EGD- on rx for PUD creat decreased to 1.2 BP stable more alert, less anxious LFTs increasing no n, v, fevers, diarrhea, dysuria CXR- mild CHF Objective - Vital Signs/Intake and Output Vital Signs (last 24 hours): Temp Pulse Resp BP Pulse Ox 98.6 F 95 H 23 119/75 99 03/20/18 12:00 03/20/18 12:00 03/20/18 12:00 03/20/18 11:25 03/20/18 12:00 Intake and Output: 03/20/18 03/20/18 06:59 18:59 Intake Total 623.4 650.2 Output Total 350 400 Balance 273.4 250.2 - Medications Medications: Current Medications Amiodarone HCl 900 mg/ (Dextrose) 500 mls @ 16.66 mls/hr IV .Q24H ONE; 0.5 MG/ MIN PRN Reason: Protocol Stop: 03/20/18 23:16 Last Admin: 03/20/18 00:00 Dose: 16.66 mls/hr Levothyroxine Sodium (Synthroid) 25 mcg PO Q24H COUNTS INCLUDE 234 BEDS AT THE [facility] Last Admin: 03/20/18 05:40 Dose: 25 mcg Metoprolol Succinate (Toprol Xl) 75 mg PO DAILY COUNTS INCLUDE 234 BEDS AT THE [facility] Last Admin: 03/20/18 10:15 Dose: 75 mg Ondansetron HCl (Zofran Inj) 4 mg IVP Q6H PRN PRN Reason: Nausea/Vomiting Pantoprazole Sodium (Protonix Inj) 40 mg IVP Q12H COUNTS INCLUDE 234 BEDS AT THE [facility] Last Admin: 03/20/18 03:00 Dose: 40 mg - Labs Labs: 03/20/18 06:39 03/20/18 06:40 PT 14.5 SECONDS (9.7-12.2) H 03/20/18 06:50 INR 1.3 03/20/18 06:50 APTT 37 SECONDS (21-34) H 03/18/18 12:57 - Constitutional Appears: No Acute Distress, Chronically Ill - Head Exam Head Exam: ATRAUMATIC, NORMAL INSPECTION - Eye Exam Eye Exam: EOMI, Normal appearance - Neck Exam Neck Exam: Normal Inspection. absent: Tenderness - Respiratory Exam Respiratory Exam: Rhonchi, NORMAL BREATHING PATTERN - Cardiovascular Exam Cardiovascular Exam: Irregular Rhythm, +S1 - GI/Abdominal Exam GI & Abdominal Exam: Distended, Soft. absent: Tenderness - Extremities Exam Extremities Exam: Normal Inspection. absent: Tenderness - Neurological Exam Neurological Exam: Alert, CN II-XII Intact - Skin Skin Exam: Dry, Warm Assessment and Plan (1) Fall (on) (from) other stairs and steps, sequela Status: Acute (2) HTN (hypertension) Status: Acute (3) Atrial fibrillation Status: Acute (4) GI bleed Status: Acute (5) CKD (chronic kidney disease) stage 3, GFR 30-59 ml/min Status: Acute - Assessment and Plan (Free Text) Plan: off fluids IV lasix x 1 follow up chemistries
--- NOTE | 2018-03-20 22:18 | CP.PCM.PN ---
Subjective - Date & Time of Evaluation Date of Evaluation: 03/20/18 Time of Evaluation: 18:10 - Subjective Subjective: Patient seen and examined Denies chest pain and dyspnea Physical Examination - Physical Exam Head: Positive for: Atraumatic, Normocephalic Pupils: Positive for: PERRL Extroacular Muscles: Positive for: EOMI Conjunctiva: Positive for: Normal Mouth: Positive for: Moist Mucous Membranes Respiratory/Chest: Positive for: Decreased Breath Sounds Cardiovascular: Positive for: Irregular Rhythm, Tachycardic Abdomen: Positive for: Normal Bowel Sounds. Negative for: Tenderness, Distention Upper Extremity: Positive for: Normal Inspection, NORMAL PULSES, Capillary Refill < 2s Lower Extremity: Positive for: Normal Inspection, NORMAL PULSES, Neurovascularly Intact, Capillary Refill < 2 s Neurological: Positive for: GCS=15, CN II-XII Intact Skin: Positive for: Warm, Dry, Normal Color Psychiatric: Positive for: Alert, Oriented x 3, Normal Insight, Normal Concentration Objective - Vital Signs/Intake and Output Vital Signs (last 24 hours): Temp Pulse Resp BP Pulse Ox 98.4 F 82 18 134/71 97 03/20/18 20:00 03/20/18 20:00 03/20/18 20:00 03/20/18 20:45 03/20/18 20:00 Intake and Output: 03/20/18 03/21/18 18:59 06:59 Intake Total 1100.3 0 Output Total 1200 500 Balance -99.7 -500 - Medications Medications: Current Medications Acetaminophen (Tylenol 325mg Tab) 650 mg PO Q6H PRN PRN Reason: Headache Levothyroxine Sodium (Synthroid) 25 mcg PO Q24H [facility] Last Admin: 03/20/18 05:40 Dose: 25 mcg Metoprolol Succinate (Toprol Xl) 75 mg PO DAILY [facility] Last Admin: 03/20/18 10:15 Dose: 75 mg Ondansetron HCl (Zofran Inj) 4 mg IVP Q6H PRN PRN Reason: Nausea/Vomiting Pantoprazole Sodium (Protonix Inj) 40 mg IVP Q12H [facility] Last Admin: 03/20/18 15:13 Dose: 40 mg - Labs Labs: 03/20/18 06:39 03/20/18 06:40 PT 14.5 SECONDS (9.7-12.2) H 03/20/18 06:50 INR 1.3 03/20/18 06:50 APTT 37 SECONDS (21-34) H 03/18/18 12:57 Assessment and Plan - Assessment and Plan (Free Text) Assessment: This is an 87 year old female with PMHx of Atrial Fibrillation, CAD s/p LAD stent, with Multi-vessel Disease, HTN, Pacemaker, and s/p TAVR x2 presents to the ED with fatigue and weakness x several days and s/p fall. Patient was trying to get to the bathroom where she felt dizzy and fell forward, she reports she did not hit her head. Admitted to shortness of breath, is speaking in small phrases. Patient was admitted for anemia suspected GI bleed, OLIVIA, and thrombocytopenia. Denied fever, chills, headache, chest pain, abdominal pain, denied any hemoptysis, coffee ground emesis, BRBPR, melena, or black tarry stool. S/P EGD 03/19 with findings: non-bleeding esophageal ulcer, non-bleeding duodenal ulcer with no stimata of bleeding. Plan: Neuro: A: Unsteady gait, S/P Fall, on AC - Head CT, Elbow Xray, Femur XRAY, Hip/pelvis Xray - all normal - no acute bleeding or fracture Cardio: A: Atrial Fibrillation - ASA, Eliquis 5mg PO BID - held 2/2 anemia - Increased lopressor 75mg PO daily A: CAD s/p LAD stent, with Multi-vessel Disease A: HTN A: Pacemaker A: History of Aortic Valve Disease s/p TAVR A: Dyslipidemia - Will need omega 3, fish oil, niacin outpatient to increase HDL Cleared for EGD, Colonoscopy - Assessed as low to intermediate risk for cardiac events for EGD and Colonoscopy. Given patient clinical condition recommend to proceed with EGD and Colonoscopy Pulm: A: Respiratory Distress - Started on BiPAP PRN GI: A: Suspected GI Bleed - Hemoglobin baseline is 11 - Hemoglobin on admission is 6.8 - was slowly downtrending from prior outpatient labs - Denied any hemoptysis, coffee ground emesis, BRBPR, melena, or black tarry stool - PPI Q12H - Stool occult: negative - S/P EGD 03/19 with findings: non-bleeding esophageal ulcer, non-bleeding duodenal ulcer with no stimata of bleeding Endo: A: Hypothyroidism - Synthroid 25mcg Heme/ Onc: A: Anemia - ??GIB - Hemoglobin baseline is 11 - Hemoglobin on admission is 6.8 - was slowly downtrending from prior outpatient labs - Denied any hemoptysis, coffee ground emesis, BRBPR, melena, or black tarry stool - F/U iron panel - Denied any previous EGD or Colonoscopy - Will be given 2 PRBCs, 1 FFP, and 1 Plateletphresis - S/P EGD 03/19 with findings: non-bleeding esophageal ulcer, non-bleeding duodenal ulcer with no stimata of bleeding A: Coagulopathy - INR 2.0 on admission, 1.5 now - Vitamin K, FFP - Continue to monitor A: Pancytopenia -- Dr. Collins consulted - mild tbili elevation; will fractionate bilirubin, LDH, haptoglobin ? hemolysis ; will check retic count, b12, folate to further characterize anemia - Continue to monitor Renal: A: OLIVIA - improving - Normal renal function at baseline - 1.8 on admission - Continue with IVF, monitor Prophylaxis - PPI Q12 - SCDs, VTE c/i due to ?GIB - Started soft diet
--- NOTE | 2018-03-20 22:57 | CP.PCM.PN ---
Subjective - Date & Time of Evaluation Date of Evaluation: 03/20/18 Time of Evaluation: 22:55 - Subjective Subjective: Patient now sitting up comfortably in the child. Bowel movements noted. This morning patient had a normal bowel movements, no blood noted. This morning patient was having mild exertional dyspnea. Now she is lately feeling better. But complaining of headache, and chills. No fever noted. Vital signs are stable. Heartbeat is slightly better On examination: Vital signs mild tachycardia Chest good air entry Regular heart sounds Nontender abdomen No pedal edema Labs reviewed Elevated LDH noted Mild elevation of the liver enzymes noted, amiodarone is discontinued because of that I also spoke to the oncologist. Assessment and recommendation: 87-year-old female with a history of aortic valve replacement 2, atrial fibrillation, hypertension, admitted to the hospital following a fall. Ecchymosis. No obvious bleeding noted. Severe anemia, unclear source. Most likely underlying drug-induced, our bone marrow disease cannot be ruled out. I discussed with the community development planner, for possible bone marrow biopsy. Meanwhile will monitor. X-ray in the morning. Add Cardizem to reduce the heartbeat. Monitor the blood pressure. We will follow the patient Objective - Vital Signs/Intake and Output Vital Signs (last 24 hours): Temp Pulse Resp BP Pulse Ox 98.4 F 82 18 134/71 97 03/20/18 20:00 03/20/18 20:00 03/20/18 20:00 03/20/18 20:45 03/20/18 20:00 Intake and Output: 03/20/18 03/21/18 18:59 06:59 Intake Total 1100.3 0 Output Total 1200 500 Balance -99.7 -500 - Medications Medications: Current Medications Acetaminophen (Tylenol 325mg Tab) 650 mg PO Q6H PRN PRN Reason: Headache Diltiazem HCl (Cardizem) 30 mg PO Q8 [facility] Levothyroxine Sodium (Synthroid) 25 mcg PO Q24H [facility] Last Admin: 03/20/18 05:40 Dose: 25 mcg Metoprolol Succinate (Toprol Xl) 75 mg PO DAILY [facility] Last Admin: 03/20/18 10:15 Dose: 75 mg Pantoprazole Sodium (Protonix Inj) 40 mg IVP Q12H [facility] Last Admin: 03/20/18 15:13 Dose: 40 mg - Labs Labs: 03/20/18 06:39 03/20/18 06:40 PT 14.5 SECONDS (9.7-12.2) H 03/20/18 06:50 INR 1.3 03/20/18 06:50 APTT 37 SECONDS (21-34) H 03/18/18 12:57
[2018-03-21 07:01] LABS: BASO % 1.1 % (0.0-2.0); EOS # 0.1 K/uL (0.0-0.7); EOS % 4.2 % (0.0-4.0); HEMOGLOBIN 10.2 g/dL (11.0-16.0); LYMPH # 0.4 K/uL (1.0-4.3); LYMPH % 16.7 % (20.0-40.0); MEAN CELL VOLUME 81.4 fL (81.0-99.0); MEAN CORPUSCULAR HEMOGLOBIN 27.1 pg (27.0-31.0); MEAN CORPUSCULAR HGB CONC 33.2 g/dL (33.0-37.0); MEAN PLATELET VOLUME 9.6 fL (7.2-11.7); MONO # 0.4 K/uL (0.0-0.8); MONO % 15.7 % (0.0-10.0); NEUT # 1.6 K/uL (1.8-7.0); NEUT % 62.3 % (50.0-75.0); NRBC % 0.2 % (0.0-2.0); RBC 3.77 Mil/uL (3.80-5.20); RED CELL DISTRIBUTION WIDTH 17.4 % (11.5-14.5); WHITE BLOOD COUNT 2.6 K/uL (4.8-10.8)
[2018-03-21 07:27] LABS: CALCIUM 9.3 mg/dl (8.6-10.4)
[2018-03-21] MEDS: Levothyroxine 25 MCG TAB PO SCH (07:27)
--- NOTE | 2018-03-21 08:22 | RAD ---
HISTORY: CHF COMPARISON: 03/18/2018. FINDINGS: LUNGS: Again seen are low lung volumes. There is airspace disease in the right mid lung. PLEURA: No significant pleural effusion identified, no pneumothorax apparent. CARDIOVASCULAR: Stable. OSSEOUS STRUCTURES: No significant abnormalities. VISUALIZED UPPER ABDOMEN: Normal. OTHER FINDINGS: None. IMPRESSION: Interval development of fire space disease in the right mid lung with may represent subsegmental atelectasis however superimposed pneumonia cannot be excluded.
--- NOTE | 2018-03-21 09:07 | CP.PCM.PN ---
Subjective - Date & Time of Evaluation Date of Evaluation: 03/21/18 Time of Evaluation: 09:04 - Subjective Subjective: more alert Good UO Less dyspnea CXR with right mid lung infiltrate pancytopenia persists, LFTs still elevated- etiology unclear renal function stabilized VR controlled with meds Objective - Vital Signs/Intake and Output Vital Signs (last 24 hours): Temp Pulse Resp BP Pulse Ox 98 F 103 H 18 124/70 100 03/21/18 04:00 03/21/18 07:24 03/21/18 07:24 03/21/18 07:24 03/21/18 07:24 Intake and Output: 03/21/18 03/21/18 06:59 18:59 Intake Total 120 0 Output Total 1250 Balance -1130 0 - Medications Medications: Current Medications Acetaminophen (Tylenol 325mg Tab) 650 mg PO Q6H PRN PRN Reason: Headache Last Admin: 03/20/18 21:35 Dose: 650 mg Diltiazem HCl (Cardizem) 60 mg PO Q8 [facility] Levothyroxine Sodium (Synthroid) 25 mcg PO Q24H [facility] Last Admin: 03/21/18 07:27 Dose: 25 mcg Metoprolol Succinate (Toprol Xl) 100 mg PO DAILY [facility] Pantoprazole Sodium (Protonix Inj) 40 mg IVP Q12H [facility] Last Admin: 03/21/18 02:57 Dose: 40 mg - Labs Labs: 03/21/18 06:48 03/21/18 06:48 PT 14.5 SECONDS (9.7-12.2) H 03/20/18 06:50 INR 1.3 03/20/18 06:50 APTT 37 SECONDS (21-34) H 03/18/18 12:57 - Constitutional Appears: No Acute Distress, Chronically Ill - Head Exam Head Exam: ATRAUMATIC, NORMAL INSPECTION - Eye Exam Eye Exam: EOMI, Normal appearance - Respiratory Exam Respiratory Exam: Clear to Ausculation Bilateral, NORMAL BREATHING PATTERN - Cardiovascular Exam Cardiovascular Exam: Irregular Rhythm, +S1 - GI/Abdominal Exam GI & Abdominal Exam: Soft. absent: Tenderness - Extremities Exam Extremities Exam: Normal Inspection. absent: Tenderness - Neurological Exam Neurological Exam: Alert, CN II-XII Intact - Skin Skin Exam: Dry, Warm Assessment and Plan (1) Fall (on) (from) other stairs and steps, sequela Status: Acute (2) HTN (hypertension) Status: Acute (3) Atrial fibrillation Status: Acute (4) GI bleed Status: Acute (5) CKD (chronic kidney disease) stage 3, GFR 30-59 ml/min Status: Acute (6) Pancytopenia Status: Acute - Assessment and Plan (Free Text) Plan: Same meds as per medicine follow lytes and renal function monitor LFTs; monitor post cessation of amiodarone might need BM bx to check CMV titre due to leukopenia, increased LFTs
[2018-03-21] MEDS: Metoprolol Succinate 100 mg XL Tab PO SCH (09:56)
--- NOTE | 2018-03-21 12:53 | CP.CCUPN ---
<Rhonda Espinosa - Last Filed: 03/21/18 12:51> CCU Subjective - Physician Review Subjective (Free Text): Patient seen and examined at bedside. Patient reports she feels better today, and her breathing improved. CCU Objective - Vital Signs / Intake & Output Vital Signs (Last 4 hours): Vital Signs Temp Pulse Resp BP Pulse Ox 03/21/18 10:00 98.2 F 107 H 16 98 03/21/18 09:24 93 H 8 L 124/64 90 L 03/21/18 09:00 105 H 9 L 96 Intake and Output (Last 8hrs): Intake & Output 03/20/18 03/21/18 03/21/18 22:59 06:59 14:59 Intake Total 336.7 0 350 Output Total 1600 450 200 Balance -1263.3 -450 150 Weight 151 lb 0.266 oz Intake: Intake, IV Amount 16.7 0 0 Right Forearm 16.7 0 0 Oral 320 350 Output: Urine 1600 450 200 Urine, Voided 1600 450 200 Other: # Voids Urine, Voided 0 # Bowel Movements 0 - Physical Exam Head: Positive for: Atraumatic, Normocephalic Pupils: Positive for: PERRL Extroacular Muscles: Positive for: EOMI Conjunctiva: Positive for: Normal Mouth: Positive for: Moist Mucous Membranes Respiratory/Chest: Positive for: Decreased Breath Sounds Cardiovascular: Positive for: Irregular Rhythm, Tachycardic Abdomen: Positive for: Normal Bowel Sounds. Negative for: Tenderness, Distention Upper Extremity: Positive for: Normal Inspection, NORMAL PULSES, Capillary Refill < 2s Lower Extremity: Positive for: Normal Inspection, NORMAL PULSES, Neurovascularly Intact, Capillary Refill < 2 s Neurological: Positive for: GCS=15, CN II-XII Intact Skin: Positive for: Warm, Dry, Normal Color Psychiatric: Positive for: Alert, Oriented x 3, Normal Insight, Normal Concentration - Medications Active Medications: Active Medications Generic Name Dose Route Start Last Admin Trade Name Freq PRN Reason Stop Dose Admin Acetaminophen 650 mg 03/20/18 20:59 03/20/18 21:35 Tylenol 325mg Tab PO 650 mg Q6H PRN Administration Headache Diltiazem HCl 60 mg 03/21/18 08:56 Cardizem PO Q8 [facility] Levothyroxine Sodium 25 mcg 03/19/18 06:30 03/21/18 07:27 Synthroid PO 25 mcg Q24H [facility] Administration Metoprolol Succinate 100 mg 03/21/18 10:00 03/21/18 09:56 Toprol Xl PO 100 mg DAILY [facility] Administration Pantoprazole Sodium 40 mg 03/19/18 02:00 03/21/18 02:57 Protonix Inj IVP 40 mg Q12H [facility] Administration - Patient Studies Lab Studies: Lab Studies 03/21/18 03/21/18 Range/Units 06:48 06:48 WBC 2.6 L (4.8-10.8) K/uL RBC 3.77 L (3.80-5.20) Mil/uL Hgb 10.2 L (11.0-16.0) g/dL Hct 30.7 L (34.0-47.0) % MCV 81.4 (81.0-99.0) fL MCH 27.1 (27.0-31.0) pg MCHC 33.2 (33.0-37.0) g/dL RDW 17.4 H (11.5-14.5) % Plt Count 68 L (130-400) K/uL MPV 9.6 (7.2-11.7) fL Neut % (Auto) 62.3 (50.0-75.0) % Lymph % (Auto) 16.7 L (20.0-40.0) % [place] % (Auto) 15.7 H (0.0-10.0) % Eos % (Auto) 4.2 H (0.0-4.0) % Baso % (Auto) 1.1 (0.0-2.0) % Neut # (Auto) 1.6 L (1.8-7.0) K/uL Lymph # (Auto) 0.4 L (1.0-4.3) K/uL [place] # (Auto) 0.4 (0.0-0.8) K/uL Eos # (Auto) 0.1 (0.0-0.7) K/uL Baso # (Auto) 0.0 (0.0-0.2) K/uL Sodium 136 (132-148) mmol/L Potassium 4.3 (3.6-5.2) mmol/L Chloride 102 (98-107) mmol/L Carbon Dioxide 24 (22-30) mmol/L Anion Gap 14 (10-20) BUN 29 H (7-17) mg/dL Creatinine 1.1 (0.7-1.2) mg/dL Est GFR ( Amer) 57 Est GFR (Non-Af Amer) 47 Random Glucose 107 H (65-105) mg/dL Calcium 9.3 (8.6-10.4) mg/dl Phosphorus 5.0 H (2.5-4.5) mg/dL Magnesium 1.9 (1.6-2.3) mg/dL Total Bilirubin 1.1 (0.2-1.3) mg/dL AST 118 H (14-36) U/L ALT 91 H (9-52) U/L Alkaline Phosphatase 319 H (38-126) U/L Total Protein 6.0 L (6.3-8.3) g/dL Albumin 3.0 L (3.5-5.0) g/dL Globulin 3.0 (2.2-3.9) gm/dL Albumin/Globulin Ratio 1.0 (1.0-2.1) Laboratory Results - last 24 hr 03/21/18 03/21/18 06:48 06:48 WBC 2.6 L RBC 3.77 L Hgb 10.2 L Hct 30.7 L MCV 81.4 MCH 27.1 MCHC 33.2 RDW 17.4 H Plt Count 68 L MPV 9.6 Neut % (Auto) 62.3 Lymph % (Auto) 16.7 L [place] % (Auto) 15.7 H Eos % (Auto) 4.2 H Baso % (Auto) 1.1 Neut # (Auto) 1.6 L Lymph # (Auto) 0.4 L [place] # (Auto) 0.4 Eos # (Auto) 0.1 Baso # (Auto) 0.0 Sodium 136 Potassium 4.3 Chloride 102 Carbon Dioxide 24 Anion Gap 14 BUN 29 H Creatinine 1.1 Est GFR ( Amer) 57 Est GFR (Non-Af Amer) 47 Random Glucose 107 H Calcium 9.3 Phosphorus 5.0 H Magnesium 1.9 Total Bilirubin 1.1 AST 118 H ALT 91 H Alkaline Phosphatase 319 H Total Protein 6.0 L Albumin 3.0 L Globulin 3.0 Albumin/Globulin Ratio 1.0 Fingerstick Blood Sugar Results: 142 Critical Care Progress Note - Nutrition Nutrition: Nutrition Category Date Time Status Heart Healthy Diet [DIET] Diets 03/21/18 Dinner Active Soft [Dysphagia/Modified Consistency Diet] [DIET] Diets 03/20/18 Breakfast Active Assessment/Plan - Assessment and Plan (Free Text) Assessment: This is an 87 year old female with PMHx of Atrial Fibrillation, CAD s/p LAD stent, with Multi-vessel Disease, HTN, Pacemaker, and s/p TAVR x2 presents to the ED with fatigue and weakness x several days and s/p fall. Patient was trying to get to the bathroom where she felt dizzy and fell forward, she reports she did not hit her head. Admitted to shortness of breath, is speaking in small phrases. Patient was admitted for anemia suspected GI bleed, OLIVIA, and thrombocytopenia. Denied fever, chills, headache, chest pain, abdominal pain, denied any hemoptysis, coffee ground emesis, BRBPR, melena, or black tarry stool. S/P EGD 03/19 with findings: non-bleeding esophageal ulcer, non-bleeding duodenal ulcer with no stimata of bleeding. Plan: Neuro: A: Unsteady gait, S/P Fall, on AC - Head CT, Elbow Xray, Femur XRAY, Hip/pelvis Xray - all normal - no acute bleeding or fracture Cardio: A: Atrial Fibrillation - ASA, Eliquis 5mg PO BID - held 2/2 anemia - Increased lopressor 100mg PO daily, Cardizem 50mg PO Q8H A: CAD s/p LAD stent, with Multi-vessel Disease A: HTN A: Pacemaker A: History of Aortic Valve Disease s/p TAVR A: Dyslipidemia - Will need omega 3, fish oil, niacin outpatient to increase HDL Cleared by Dr. Gaitan 03/18/18 for EGD, Colonoscopy - Assessed as low to intermediate risk for cardiac events for EGD and Colonoscopy. Given patient clinical condition recommend to proceed with EGD and Colonoscopy Pulm: A: Respiratory Distress - Started on BiPAP PRN GI: A: Suspected GI Bleed - Hemoglobin baseline is 11 - Hemoglobin on admission is 6.8 - was slowly downtrending from prior outpatient labs - Denied any hemoptysis, coffee ground emesis, BRBPR, melena, or black tarry stool - PPI Q12H - Stool occult: negative - S/P EGD 03/19 with findings: non-bleeding esophageal ulcer, non-bleeding duodenal ulcer with no stimata of bleeding Endo: A: Hypothyroidism - Synthroid 25mcg Heme/ Onc: A: Anemia - ??GIB - Hemoglobin baseline is 11 - Hemoglobin on admission is 6.8 - was slowly downtrending from prior outpatient labs - Denied any hemoptysis, coffee ground emesis, BRBPR, melena, or black tarry stool - F/U iron panel - Denied any previous EGD or Colonoscopy - Will be given 2 PRBCs, 1 FFP, and 1 Plateletphresis - S/P EGD 03/19 with findings: non-bleeding esophageal ulcer, non-bleeding duodenal ulcer with no stimata of bleeding A: Coagulopathy - INR 2.0 on admission, 1.5 now - Vitamin K, FFP - Continue to monitor A: Pancytopenia -- Dr. Collins consulted - mild tbili elevation; will fractionate bilirubin, LDH, haptoglobin ? hemolysis ; will check retic count, b12, folate to further characterize anemia - Continue to monitor Renal: A: OLIVIA - improving - Normal renal function at baseline - 1.8 on admission - Continue with IVF, monitor Prophylaxis - PPI Q12 - SCDs, VTE c/i due to ?GIB - Started soft diet Disposition: Patient is transferred to telemetry. DW Dr. Cristiano Pittman, Rhonda Espinosa DO, PGY-1 <Cristiano Pittman M - Last Filed: 03/21/18 14:17> CCU Objective - Vital Signs / Intake & Output Vital Signs (Last 4 hours): Vital Signs Temp Pulse Resp BP Pulse Ox 03/21/18 13:24 91 H 9 L 120/59 L 03/21/18 13:00 97 H 21 03/21/18 12:24 102 H 22 111/57 L 03/21/18 12:05 104 H 25 H 130/59 L 03/21/18 12:00 97.9 F 91 H 25 H 98 03/21/18 11:00 91 H 24 Intake and Output (Last 8hrs): Intake & Output 03/20/18 03/21/18 03/21/18 22:59 06:59 14:59 Intake Total 336.7 0 750 Output Total 1600 450 350 Balance -1263.3 -450 400 Weight 151 lb 0.266 oz Intake: Intake, IV Amount 16.7 0 0 Right Forearm 16.7 0 0 Oral 320 750 Output: Urine 1600 450 350 Urine, Voided 1600 450 350 Other: # Voids Urine, Voided 1 # Bowel Movements 0 - Medications Active Medications: Active Medications Generic Name Dose Route Start Last Admin Trade Name Freq PRN Reason Stop Dose Admin Acetaminophen 650 mg 03/20/18 20:59 03/20/18 21:35 Tylenol 325mg Tab PO 650 mg Q6H PRN Administration Headache Diltiazem HCl 60 mg 03/21/18 08:56 03/21/18 14:08 Cardizem PO 60 mg Q8 [facility] Administration Levothyroxine Sodium 25 mcg 03/19/18 06:30 03/21/18 07:27 Synthroid PO 25 mcg Q24H [facility] Administration Metoprolol Succinate 100 mg 03/21/18 10:00 03/21/18 09:56 Toprol Xl PO 100 mg DAILY [facility] Administration Pantoprazole Sodium 40 mg 03/19/18 02:00 03/21/18 14:08 Protonix Inj IVP 40 mg Q12H [facility] Administration - Patient Studies Lab Studies: Lab Studies 03/21/18 03/21/18 Range/Units 06:48 06:48 WBC 2.6 L (4.8-10.8) K/uL RBC 3.77 L (3.80-5.20) Mil/uL Hgb 10.2 L (11.0-16.0) g/dL Hct 30.7 L (34.0-47.0) % MCV 81.4 (81.0-99.0) fL MCH 27.1 (27.0-31.0) pg MCHC 33.2 (33.0-37.0) g/dL RDW 17.4 H (11.5-14.5) % Plt Count 68 L (130-400) K/uL MPV 9.6 (7.2-11.7) fL Neut % (Auto) 62.3 (50.0-75.0) % Lymph % (Auto) 16.7 L (20.0-40.0) % [place] % (Auto) 15.7 H (0.0-10.0) % Eos % (Auto) 4.2 H (0.0-4.0) % Baso % (Auto) 1.1 (0.0-2.0) % Neut # (Auto) 1.6 L (1.8-7.0) K/uL Lymph # (Auto) 0.4 L (1.0-4.3) K/uL [place] # (Auto) 0.4 (0.0-0.8) K/uL Eos # (Auto) 0.1 (0.0-0.7) K/uL Baso # (Auto) 0.0 (0.0-0.2) K/uL Sodium 136 (132-148) mmol/L Potassium 4.3 (3.6-5.2) mmol/L Chloride 102 (98-107) mmol/L Carbon Dioxide 24 (22-30) mmol/L Anion Gap 14 (10-20) BUN 29 H (7-17) mg/dL Creatinine 1.1 (0.7-1.2) mg/dL Est GFR ( Amer) 57 Est GFR (Non-Af Amer) 47 Random Glucose 107 H (65-105) mg/dL Calcium 9.3 (8.6-10.4) mg/dl Phosphorus 5.0 H (2.5-4.5) mg/dL Magnesium 1.9 (1.6-2.3) mg/dL Total Bilirubin 1.1 (0.2-1.3) mg/dL AST 118 H (14-36) U/L ALT 91 H (9-52) U/L Alkaline Phosphatase 319 H (38-126) U/L Total Protein 6.0 L (6.3-8.3) g/dL Albumin 3.0 L (3.5-5.0) g/dL Globulin 3.0 (2.2-3.9) gm/dL Albumin/Globulin Ratio 1.0 (1.0-2.1) Laboratory Results - last 24 hr 03/21/18 03/21/18 06:48 06:48 WBC 2.6 L RBC 3.77 L Hgb 10.2 L Hct 30.7 L MCV 81.4 MCH 27.1 MCHC 33.2 RDW 17.4 H Plt Count 68 L MPV 9.6 Neut % (Auto) 62.3 Lymph % (Auto) 16.7 L [place] % (Auto) 15.7 H Eos % (Auto) 4.2 H Baso % (Auto) 1.1 Neut # (Auto) 1.6 L Lymph # (Auto) 0.4 L [place] # (Auto) 0.4 Eos # (Auto) 0.1 Baso # (Auto) 0.0 Sodium 136 Potassium 4.3 Chloride 102 Carbon Dioxide 24 Anion Gap 14 BUN 29 H Creatinine 1.1 Est GFR ( Amer) 57 Est GFR (Non-Af Amer) 47 Random Glucose 107 H Calcium 9.3 Phosphorus 5.0 H Magnesium 1.9 Total Bilirubin 1.1 AST 118 H ALT 91 H Alkaline Phosphatase 319 H Total Protein 6.0 L Albumin 3.0 L Globulin 3.0 Albumin/Globulin Ratio 1.0 Critical Care Progress Note - Nutrition Nutrition: Nutrition Category Date Time Status Heart Healthy Diet [DIET] Diets 03/21/18 Dinner Active Soft [Dysphagia/Modified Consistency Diet] [DIET] Diets 03/20/18 Breakfast Active Assessment/Plan - Assessment and Plan (Free Text) Plan: Patient remains hemodynamically stable. -HR controlled, continue rx as per cardiology team. -Patient informed of the risk and benefits of anticoagulation. Patient verbalized understanding. -Above resident documents my clinical findings and managment. -A-fib -CAD -OLIVIA -Acute blood loss anemia 2nd Gi bleeding - Date & Time Date: 03/21/18 Time: 14:17
--- NOTE | 2018-03-21 14:43 | CP.PCM.PN ---
Subjective - Date & Time of Evaluation Date of Evaluation: 03/21/18 Time of Evaluation: 14:40 - Subjective Subjective: COVERING DR ROBLEDO/JENNIE No bleeding or melena. Told by that bone marrow bx is planned for friday. Tolerating diet. No stool today. Objective - Vital Signs/Intake and Output Vital Signs (last 24 hours): Temp Pulse Resp BP Pulse Ox 97.9 F 91 H 9 L 120/59 L 98 03/21/18 12:00 03/21/18 13:24 03/21/18 13:24 03/21/18 13:24 03/21/18 12:00 Intake and Output: 03/21/18 03/21/18 06:59 18:59 Intake Total 120 750 Output Total 1250 350 Balance -1130 400 - Medications Medications: Current Medications Acetaminophen (Tylenol 325mg Tab) 650 mg PO Q6H PRN PRN Reason: Headache Last Admin: 03/20/18 21:35 Dose: 650 mg Diltiazem HCl (Cardizem) 60 mg PO Q8 [facility] Last Admin: 03/21/18 14:08 Dose: 60 mg Levothyroxine Sodium (Synthroid) 25 mcg PO Q24H [facility] Last Admin: 03/21/18 07:27 Dose: 25 mcg Metoprolol Succinate (Toprol Xl) 100 mg PO DAILY [facility] Last Admin: 03/21/18 09:56 Dose: 100 mg Pantoprazole Sodium (Protonix Inj) 40 mg IVP Q12H [facility] Last Admin: 03/21/18 14:08 Dose: 40 mg - Labs Labs: 03/21/18 06:48 03/21/18 06:48 PT 14.5 SECONDS (9.7-12.2) H 03/20/18 06:50 INR 1.3 03/20/18 06:50 APTT 37 SECONDS (21-34) H 03/18/18 12:57 - Constitutional Appears: No Acute Distress - Head Exam Head Exam: ATRAUMATIC, NORMOCEPHALIC - Respiratory Exam Respiratory Exam: Clear to Ausculation Bilateral, NORMAL BREATHING PATTERN - Cardiovascular Exam Cardiovascular Exam: REGULAR RHYTHM, +S1 - GI/Abdominal Exam GI & Abdominal Exam: Soft, Normal Bowel Sounds. absent: Distended, Tenderness, Mass, Rebound - Rectal Exam Rectal Exam: Deferred - Extremities Exam Extremities Exam: Normal Inspection Assessment and Plan (1) Gastric ulcer Assessment & Plan: Continue PPI bid. Monitor for bleeding. Status: Acute (2) Duodenal ulcer Assessment & Plan: as above Status: Acute (3) Blood loss anemia Assessment & Plan: H/H stable. Further work up per hematology. Bone marrow planned for next week. Status: Acute
--- NOTE | 2018-03-21 19:56 | CP.PCM.PN ---
Subjective - Date & Time of Evaluation Date of Evaluation: 03/21/18 Time of Evaluation: 19:55 - Subjective Subjective: Patient's heart rate is much better today. She is also seems to be much comfortable. No BM today. She denies any nausea vomiting. Poor intake noted. Patient's vital signs stable otherwise. Chest good air entry bilaterally. Regular heart sound noted. Tenderness in the abdomen negative. Pedal edema less also Labs also reviewed Mild elevation of the liver enzymes noted today. Chest x-ray improvement in the congestion noted Assessment and recommendation: 87-year-old female with a history of aortic valve replacement 2, atrial fibrillation, hypertension with a near normal ejection fraction. Patient admitted with anemia. But no obvious bleeding noted. Guaiac is negative. Patient also has elevated liver enzymes, LDH elevation noted, low platelets and low WBC noted, CAT scan of the abdomen showing lymphadenopathy changes, mild hepatosplenomegaly also noted, underlying malignancy, hematological malignancy cannot be ruled out. Awaiting further hematological workup, and also possible bone marrow biopsy by Dr. Collins. I spoke to the patient in detail about that. We will continue the current treatment. Renal function monitoring. Patient will be covered by hospitalist from tomorrow Objective - Vital Signs/Intake and Output Vital Signs (last 24 hours): Temp Pulse Resp BP Pulse Ox 97.9 F 111 H 20 122/56 L 98 03/21/18 16:00 03/21/18 19:00 03/21/18 19:00 03/21/18 18:24 03/21/18 16:00 Intake and Output: 03/21/18 03/22/18 18:59 06:59 Intake Total 1050 Output Total 500 Balance 550 - Medications Medications: Current Medications Acetaminophen (Tylenol 325mg Tab) 650 mg PO Q6H PRN PRN Reason: Headache Last Admin: 03/20/18 21:35 Dose: 650 mg Diltiazem HCl (Cardizem) 60 mg PO Q8 [facility] Last Admin: 03/21/18 14:08 Dose: 60 mg Docusate Sodium (Colace) 100 mg PO TID [facility] Levothyroxine Sodium (Synthroid) 25 mcg PO Q24H [facility] Last Admin: 03/21/18 07:27 Dose: 25 mcg Metoprolol Succinate (Toprol Xl) 100 mg PO DAILY [facility] Last Admin: 03/21/18 09:56 Dose: 100 mg Pantoprazole Sodium (Protonix Inj) 40 mg IVP Q12H [facility] Last Admin: 03/21/18 14:08 Dose: 40 mg - Labs Labs: 03/21/18 06:48 03/21/18 06:48 PT 14.5 SECONDS (9.7-12.2) H 03/20/18 06:50 INR 1.3 03/20/18 06:50 APTT 37 SECONDS (21-34) H 03/18/18 12:57
--- NOTE | 2018-03-21 22:23 | CP.PCM.PN ---
Subjective - Date & Time of Evaluation Date of Evaluation: 03/21/18 Time of Evaluation: 16:40 - Subjective Subjective: Patient seen and examined Denies chest pain and dyspnea Patient states going for bone marrow biospy on Friday and a bit nervous about it Physical Examination - Physical Exam Head: Positive for: Atraumatic, Normocephalic Pupils: Positive for: PERRL Extroacular Muscles: Positive for: EOMI Conjunctiva: Positive for: Normal Mouth: Positive for: Moist Mucous Membranes Respiratory/Chest: Positive for: Decreased Breath Sounds Cardiovascular: Positive for: Irregular Rhythm, Tachycardic Abdomen: Positive for: Normal Bowel Sounds. Negative for: Tenderness, Distention Upper Extremity: Positive for: Normal Inspection, NORMAL PULSES, Capillary Refill < 2s Lower Extremity: Positive for: Normal Inspection, NORMAL PULSES, Neurovascularly Intact, Capillary Refill < 2 s Neurological: Positive for: GCS=15, CN II-XII Intact Skin: Positive for: Warm, Dry, Normal Color Psychiatric: Positive for: Alert, Oriented x 3, Normal Insight, Normal Concentration Objective - Vital Signs/Intake and Output Vital Signs (last 24 hours): Temp Pulse Resp BP Pulse Ox 97.8 F 92 H 16 122/56 L 98 03/21/18 20:00 03/21/18 20:00 03/21/18 20:00 03/21/18 18:24 03/21/18 20:00 Intake and Output: 03/21/18 03/22/18 18:59 06:59 Intake Total 1050 Output Total 500 Balance 550 - Medications Medications: Current Medications Acetaminophen (Tylenol 325mg Tab) 650 mg PO Q6H PRN PRN Reason: Headache Last Admin: 03/21/18 19:56 Dose: 650 mg Diltiazem HCl (Cardizem) 60 mg PO Q8 [facility] Last Admin: 03/21/18 21:13 Dose: 60 mg Docusate Sodium (Colace) 100 mg PO TID [facility] Levothyroxine Sodium (Synthroid) 25 mcg PO Q24H [facility] Last Admin: 03/21/18 07:27 Dose: 25 mcg Metoprolol Succinate (Toprol Xl) 100 mg PO DAILY [facility] Last Admin: 03/21/18 09:56 Dose: 100 mg Pantoprazole Sodium (Protonix Inj) 40 mg IVP Q12H [facility] Last Admin: 06/23/18 14:08 Dose: 40 mg - Labs Labs: 03/21/18 06:48 03/21/18 06:48 PT 14.5 SECONDS (9.7-12.2) H 03/20/18 06:50 INR 1.3 03/20/18 06:50 APTT 37 SECONDS (21-34) H 03/18/18 12:57 Assessment and Plan - Assessment and Plan (Free Text) Assessment: This is an 87 year old female with PMHx of Atrial Fibrillation, CAD s/p LAD stent, with Multi-vessel Disease, HTN, Pacemaker, and s/p TAVR x2 presents to the ED with fatigue and weakness x several days and s/p fall. Patient was trying to get to the bathroom where she felt dizzy and fell forward, she reports she did not hit her head. Admitted to shortness of breath, is speaking in small phrases. Patient was admitted for anemia suspected GI bleed, OLIVIA, and thrombocytopenia. Denied fever, chills, headache, chest pain, abdominal pain, denied any hemoptysis, coffee ground emesis, BRBPR, melena, or black tarry stool. S/P EGD 03/19 with findings: non-bleeding esophageal ulcer, non-bleeding duodenal ulcer with no stimata of bleeding. Plan: Neuro: A: Unsteady gait, S/P Fall, on AC - Head CT, Elbow Xray, Femur XRAY, Hip/pelvis Xray - all normal - no acute bleeding or fracture Cardio: A: Atrial Fibrillation - ASA, Eliquis 5mg PO BID - held 2/2 anemia - Increased lopressor 75mg PO daily A: CAD s/p LAD stent, with Multi-vessel Disease A: HTN A: Pacemaker A: History of Aortic Valve Disease s/p TAVR A: Dyslipidemia - Will need omega 3, fish oil, niacin outpatient to increase HDL Cleared for EGD, Colonoscopy - Assessed as low to intermediate risk for cardiac events for EGD and Colonoscopy. Given patient clinical condition recommend to proceed with EGD and Colonoscopy Pulm: A: Respiratory Distress - Started on BiPAP PRN GI: A: Suspected GI Bleed - Hemoglobin baseline is 11 - Hemoglobin on admission is 6.8 - was slowly downtrending from prior outpatient labs - Denied any hemoptysis, coffee ground emesis, BRBPR, melena, or black tarry stool - PPI Q12H - Stool occult: negative - S/P EGD 03/19 with findings: non-bleeding esophageal ulcer, non-bleeding duodenal ulcer with no stimata of bleeding Endo: A: Hypothyroidism - Synthroid 25mcg Heme/ Onc: A: Anemia - ??GIB - Hemoglobin baseline is 11 - Hemoglobin on admission is 6.8 - was slowly downtrending from prior outpatient labs - Denied any hemoptysis, coffee ground emesis, BRBPR, melena, or black tarry stool - F/U iron panel - Denied any previous EGD or Colonoscopy - Will be given 2 PRBCs, 1 FFP, and 1 Plateletphresis - S/P EGD 03/19 with findings: non-bleeding esophageal ulcer, non-bleeding duodenal ulcer with no stimata of bleeding A: Coagulopathy - INR 2.0 on admission, 1.5 now - Vitamin K, FFP - Continue to monitor A: Pancytopenia -- Dr. Collins consulted - mild tbili elevation; will fractionate bilirubin, LDH, haptoglobin ? hemolysis ; will check retic count, b12, folate to further characterize anemia - Continue to monitor Renal: A: OLIVIA - improving - Normal renal function at baseline - 1.8 on admission - Continue with IVF, monitor Prophylaxis - PPI Q12 - SCDs, VTE c/i due to ?GIB - Started soft diet
[2018-03-22] MEDS: Levothyroxine 25 MCG TAB PO SCH (06:32)
[2018-03-22 06:57] LABS: BASO % 0.8 % (0.0-2.0); EOS # 0.1 K/uL (0.0-0.7); EOS % 3.7 % (0.0-4.0); HEMOGLOBIN 10.1 g/dL (11.0-16.0); LYMPH # 0.6 K/uL (1.0-4.3); MEAN CELL VOLUME 81.5 fL (81.0-99.0); MEAN CORPUSCULAR HEMOGLOBIN 26.6 pg (27.0-31.0); MEAN CORPUSCULAR HGB CONC 32.6 g/dL (33.0-37.0); MEAN PLATELET VOLUME 9.3 fL (7.2-11.7); MONO # 0.6 K/uL (0.0-0.8); MONO % 16.2 % (0.0-10.0); NEUT # 2.2 K/uL (1.8-7.0); NEUT % 62.3 % (50.0-75.0); RBC 3.8 Mil/uL (3.80-5.20); RED CELL DISTRIBUTION WIDTH 17.8 % (11.5-14.5); WHITE BLOOD COUNT 3.5 K/uL (4.8-10.8)
[2018-03-22 07:08] LABS: ALB/GLOB RATIO 1.1 (1.0-2.1); ALBUMIN 3.1 g/dL (3.5-5.0); ALT/SGPT 112 U/L (9-52); AST/SGOT 124 U/L (14-36); BLOOD UREA NITROGEN 25 mg/dL (7-17); CALCIUM 9.5 mg/dl (8.6-10.4); GFR AFRICAN-AMERICAN > 60; GFR NON-AFRICAN AMERICAN 59
[2018-03-22] MEDS: Metoprolol Succinate 100 mg XL Tab PO SCH (10:01)
--- NOTE | 2018-03-22 11:14 | CP.PCM.PN ---
Subjective - Date & Time of Evaluation Date of Evaluation: 03/22/18 Time of Evaluation: 11:11 - Subjective Subjective: COVERING DR SCHNEIDER/MEENA No pain or bleeding H/H stable on PPI bid Objective - Vital Signs/Intake and Output Vital Signs (last 24 hours): Temp Pulse Resp BP Pulse Ox 98.2 F 84 20 127/72 97 03/22/18 08:00 03/22/18 08:00 03/22/18 08:00 03/22/18 08:00 03/22/18 08:00 Intake and Output: 03/22/18 03/22/18 06:59 18:59 Intake Total 100 300 Output Total 500 Balance -400 300 - Medications Medications: Current Medications Acetaminophen (Tylenol 325mg Tab) 650 mg PO Q6H PRN PRN Reason: Headache Last Admin: 03/21/18 19:56 Dose: 650 mg Diltiazem HCl (Cardizem) 60 mg PO Q8 [facility] Last Admin: 03/22/18 06:32 Dose: 60 mg Docusate Sodium (Colace) 100 mg PO TID [facility] Last Admin: 03/22/18 10:01 Dose: Not Given Levothyroxine Sodium (Synthroid) 25 mcg PO Q24H [facility] Last Admin: 03/22/18 06:32 Dose: 25 mcg Metoprolol Succinate (Toprol Xl) 100 mg PO DAILY [facility] Last Admin: 03/22/18 10:01 Dose: 100 mg Pantoprazole Sodium (Protonix Inj) 40 mg IVP Q12H [facility] Last Admin: 03/22/18 02:00 Dose: 40 mg - Labs Labs: 03/22/18 06:41 03/22/18 06:35 PT 14.5 SECONDS (9.7-12.2) H 03/20/18 06:50 INR 1.3 03/20/18 06:50 APTT 37 SECONDS (21-34) H 03/18/18 12:57 - Constitutional Appears: No Acute Distress - Head Exam Head Exam: ATRAUMATIC, NORMOCEPHALIC - Respiratory Exam Respiratory Exam: NORMAL BREATHING PATTERN - Cardiovascular Exam Cardiovascular Exam: REGULAR RHYTHM, +S1 - GI/Abdominal Exam GI & Abdominal Exam: Soft, Normal Bowel Sounds. absent: Distended, Firm, Tenderness, Mass, Rebound Assessment and Plan (1) Gastric ulcer Assessment & Plan: clinically stable and no pain/bleeding Continue PPI bid Status: Acute (2) Duodenal ulcer Assessment & Plan: as above. Clinically stable. Status: Acute (3) Blood loss anemia Assessment & Plan: Plan for bone marrow bx by Hematology tomorrow. Status: Acute
--- NOTE | 2018-03-22 15:30 | CP.PCM.CON ---
History of Present Illness - History of Present Illness History of Present Illness: CONSULT DICTATED S/P FALL PROGRESSIVE DROP IN HGB. GI WORK UP NEGATIVE CAUDA EQUINA SYNDDROME - CHRONIC CAT L/S SPINE BLOOE WORK UP EEG - R/O ANY FOCAL SLOWING OR PAROXYSMAL ACTIVITS FALL PRECAUTION EXTENSIVELY DISCUSSED WITH HER SONS AND D N LAW Past Patient History - Past Medical History & Family History Past Medical History?: Yes - Past Social History Smoking Status: Never Smoked Chewing Tobacco Use: No Cigar Use: No Alcohol: None Home Situation {Lives}: Alone - CARDIAC Hx Cardiac Disorders: Yes (CAD, Coronary Stentx2, Pacemaker, Valve replacement) Hx Hypercholesterolemia: Yes Hx Hypertension: Yes - NEUROLOGICAL Hx Neurological Disorder: No - HEENT Hx HEENT Problems: No - RENAL Hx Chronic Kidney Disease: Yes - ENDOCRINE/METABOLIC Hx Endocrine Disorders: No - HEMATOLOGICAL/ONCOLOGICAL Hx Blood Disorders: No - INTEGUMENTARY Hx Dermatological Problems: No - MUSCULOSKELETAL/RHEUMATOLOGICAL Hx Arthritis: Yes - GASTROINTESTINAL Hx Gastrointestinal Disorders: No - GENITOURINARY/GYNECOLOGICAL Hx Genitourinary Disorders: No - PSYCHIATRIC Hx Substance Use: No - SURGICAL HISTORY Hx Coronary Stent: Yes (x2) - ANESTHESIA Hx Anesthesia: Yes Hx Anesthesia Reactions: No Meds Allergies/Adverse Reactions: Allergies Allergy/AdvReac Type Severity Reaction Status Date / Time shellfish derived Allergy Intermediate RASH Verified 03/18/18 08:32 statins Allergy Intermediate RASH Uncoded 03/18/18 08:32 - Medications Medications: Current Medications Acetaminophen (Tylenol 325mg Tab) 650 mg PO Q6H PRN PRN Reason: Headache Last Admin: 03/21/18 19:56 Dose: 650 mg Diltiazem HCl (Cardizem) 60 mg PO Q8 [facility] Last Admin: 03/22/18 13:32 Dose: 60 mg Docusate Sodium (Colace) 100 mg PO TID [facility] Last Admin: 03/22/18 13:09 Dose: Not Given Levothyroxine Sodium (Synthroid) 25 mcg PO Q24H [facility] Last Admin: 03/22/18 06:32 Dose: 25 mcg Metoprolol Succinate (Toprol Xl) 100 mg PO DAILY [facility] Last Admin: 03/22/18 10:01 Dose: 100 mg Pantoprazole Sodium (Protonix Inj) 40 mg IVP Q12H [facility] Last Admin: 03/22/18 13:32 Dose: 40 mg Results - Vital Signs Recent Vital Signs: Last Vital Signs Temp 98.4 F 03/22/18 12:00 Pulse 98 H 03/22/18 12:00 Resp 20 03/22/18 12:00 BP 116/62 03/22/18 12:00 Pulse Ox 98 03/22/18 12:00 - Labs Result Diagrams: 03/22/18 06:41 03/22/18 06:35 Labs: Laboratory Results - last 24 hr 03/22/18 03/22/18 03/22/18 06:00 06:35 06:41 WBC 3.5 L RBC 3.80 Hgb 10.1 L Hct 30.9 L MCV 81.5 MCH 26.6 L MCHC 32.6 L RDW 17.8 H Plt Count 74 L MPV 9.3 Neut % (Auto) 62.3 Lymph % (Auto) 17.0 L Cecil % (Auto) 16.2 H Eos % (Auto) 3.7 Baso % (Auto) 0.8 Neut # (Auto) 2.2 Lymph # (Auto) 0.6 L Cecil # (Auto) 0.6 Eos # (Auto) 0.1 Baso # (Auto) 0.0 Sodium 138 Potassium 4.7 Chloride 100 Carbon Dioxide 27 Anion Gap 15 BUN 25 H Creatinine 0.9 Est GFR ( Amer) > 60 Est GFR (Non-Af Amer) 59 Random Glucose 111 H Calcium 9.5 Phosphorus 4.4 Magnesium 1.8 Total Bilirubin 1.1 AST 124 H ALT 112 H D Alkaline Phosphatase 374 H Total Protein 6.0 L Albumin 3.1 L Globulin 2.9 Albumin/Globulin Ratio 1.1 Prostate Specific Ag < 0.064
--- NOTE | 2018-03-22 17:40 | CP.PCM.PN ---
Subjective - Date & Time of Evaluation Date of Evaluation: 03/22/18 Time of Evaluation: 17:30 - Subjective Subjective: Hospitalist Service (Covering Dr. Hassan 03/22-03/29/18) Medical Attending Note: Patient seen and examined. Patient denies headache, denies chest pain, reports shortness of breathe, denies denies cough, denies abdominal pain, reports she had a bowel movement yesterday, denies urinary complaints. Patient reports she feels tired, lethargic , and nervous for bone marrow biopsy tomorrow. I have clarified with Dr. Collins it will be for Friday and provided nursing communication. Objective - Vital Signs/Intake and Output Vital Signs (last 24 hours): Temp Pulse Resp BP Pulse Ox 98.2 F 96 H 16 92/72 L 98 03/22/18 16:00 03/22/18 16:00 03/22/18 16:00 03/22/18 16:00 03/22/18 16:00 Intake and Output: 03/22/18 03/22/18 06:59 18:59 Intake Total 100 800 Output Total 500 250 Balance -400 550 - Medications Medications: Current Medications Acetaminophen (Tylenol 325mg Tab) 650 mg PO Q6H PRN PRN Reason: Headache Last Admin: 03/21/18 19:56 Dose: 650 mg Diltiazem HCl (Cardizem) 60 mg PO Q8 [facility] Last Admin: 03/22/18 13:32 Dose: 60 mg Docusate Sodium (Colace) 100 mg PO TID [facility] Last Admin: 03/22/18 13:09 Dose: Not Given Levothyroxine Sodium (Synthroid) 25 mcg PO Q24H [facility] Last Admin: 03/22/18 06:32 Dose: 25 mcg Metoprolol Succinate (Toprol Xl) 100 mg PO DAILY [facility] Last Admin: 03/22/18 10:01 Dose: 100 mg Pantoprazole Sodium (Protonix Inj) 40 mg IVP Q12H [facility] Last Admin: 03/22/18 13:32 Dose: 40 mg - Labs Labs: 03/22/18 06:41 03/22/18 06:35 PT 14.5 SECONDS (9.7-12.2) H 03/20/18 06:50 INR 1.3 03/20/18 06:50 APTT 37 SECONDS (21-34) H 03/18/18 12:57 - Constitutional Appears: Non-toxic, No Acute Distress - Head Exam Head Exam: NORMAL INSPECTION Additional comments: pacemaker-->left side chest, clean/dry/intact - Eye Exam Eye Exam: EOMI - ENT Exam ENT Exam: Mucous Membranes Moist - Respiratory Exam Respiratory Exam: Decreased Breath Sounds, NORMAL BREATHING PATTERN. absent: Rales, Rhonchi - Cardiovascular Exam Cardiovascular Exam: REGULAR RHYTHM, +S1, +S2 - GI/Abdominal Exam GI & Abdominal Exam: Soft, Normal Bowel Sounds. absent: Distended, Firm, Guarding, Rigid, Tenderness, Rebound - Extremities Exam Extremities Exam: absent: Pedal Edema, Tenderness - Neurological Exam Neurological Exam: Alert, Awake, Oriented x3 - Psychiatric Exam Psychiatric exam: Anxious - Skin Skin Exam: Dry, Intact, Normal Color, Warm Additional comments: mild brusing appears old Assessment and Plan (1) Status post fall Assessment & Plan: Patient came in status post fall. patient previously on anticoagulation including Eliquis and Aspirin which was held on admission. Imaging completed on admission: * Elbow xray (03/18/18): no acute fracture or dislocation. Moderate soft tissue edema overlies the olecranon process * Femur xray (03/18/18); no acute fracture or dislocation. No destructive bony lesion evidence. 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 * Head CT (03/18/18): no intracranial mass, hemorrhage, or evidence of acute infarct. Age-appropriate involutional changes. * Hip Xray (03/18/18): no acute fracture or dislocation left hip joint. Pelvic ring is intact including pubic symphysis. 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 * Knee xray (03/18/18): no acute fracture or dislocation. Advanced osteoarthritis. Patient has vertebral compression fracture noted on CT abdomen/pelvis-->f/u Lumbar CT pending report ordered by neurology. Brain MRI held since patient has a pacemaker. Patient was previously ordered for brain mri. I have cancelled it. She has a pacemaker unclear if MRI safe. Nursing communication also placed as well as safety precaution to inform neurology Status: Acute (2) Anemia Assessment & Plan: Review of record: Patient was admitted to ICU. GI (Dr. Lord) on the case-->help appreciated Heme-Oncology (Dr. Rohan Collins) on the case--->help appreciated Patient came in status post fall. patient previously on anticoagulation including Eliquis and Aspirin which was held on admission. Patient required blood products during admission. Patient completed CT abdomen/Pelvis on 03/18/18---> hepatosplenomegaly with adenopathy in this patient with anemia suggest possibility of hematologic malignancy, bilateral low density renal lesions, scattered colonic diverticula, compression fracture at T9 with 70 percent loss of height of vertebral body. Low density lesions noted within the spleen could represent splenic infarcts. 2mm nodule in the right middle lobe. Patient completed EGD 03/19 with findings: non-bleeding esophageal ulcer, non- bleeding duodenal ulcer with no stigmata of bleeding * Recommend PPI BID, check Hgb, advance diet Patient is undergoing hematological workup. * Patient also has elevated liver enzymes, LDH elevation noted, low platelets and low WBC noted, CAT scan of the abdomen showing lymphadenopathy changes, mild hepatosplenomegaly also noted, underlying malignancy, hematological malignancy cannot be ruled out. * I have spoken with Dr Collins, plan is for bone marrow biopsy on Friday. Status: Acute (3) Atrial fibrillation Assessment & Plan: Cardiology (Dr. Gaitan) on the case-->help appreciated Patient came in status post fall. patient previously on anticoagulation including Eliquis and Aspirin which was held on admission. Patient is not on chemical anticoagulation secondary to subacute blood loss Discontinue Amiodarone given elevated LFTs Lower Cardizem 30mg POq8H-->patient is hypotensive today Toprol XL 100mg PO daily Status: Chronic (4) CAD (coronary artery disease) Assessment & Plan: Cardiology (Dr. Gaitan) on the case-->help appreciated Patient is not on chemical anticoagulation secondary to subacute blood loss Patient is off statin given elevated LFTs and allergic to statins Patient is not on aspirin given subacute blood loss Topxol 100mg PO daily Lower Cardizem 30mg POq8H-->patient is hypotensive today Status: Chronic (5) Pacemaker Status: Chronic (6) S/P TAVR (transcatheter aortic valve replacement) Status: Chronic (7) Chronic kidney disease Assessment & Plan: Nephrology (Dr. Lawrence) on the case-->help appreciated monitor BUN/Cr Status: Acute (8) Pancytopenia Assessment & Plan: Hematology-oncology (Dr. Rohan Collins) on the case-->help appreciated Patient came in with low hemoglobin while on anticoagulation Patient required multiple blood products will check retic count, b12, folate to further characterize anemia mild tbili elevation; will fractionate bilirubin, LDH, haptoglobin ? hemolysis ferritin elevated; anemia of chronic disease FOBT negative platelet count was normal on admission; cont. to monitor ? medication related mild leukopenia, no neutropenia patient is scheduled for bone marrow biopsy for Friday on March 24 in the AM bedside with Dr. Rohan Collins. Status: Acute (9) Transaminitis Assessment & Plan: to check CMV titre due to leukopenia, increased LFTs Patient is off amiodarone given LFTs discontinue tylenol given LFTs Patient completed CT abdomen/Pelvis on 03/18/18---> hepatosplenomegaly with adenopathy in this patient with anemia suggest possibility of hematologic malignancy, bilateral low density renal lesions, scattered colonic diverticula, compression fracture at T9 with 70 percent loss of height of vertebral body. Low density lesions noted within the spleen could represent splenic infarcts. 2mm nodule in the right middle lobe. Status: Acute (10) Abnormal chest xray Assessment & Plan: noted chest xray 03/21 will order for mycoplasma IGM, legionella, and strep and procalcitonin Patient does not present clinically as pneumonia Status: Acute (11) PACO (cauda equina syndrome) Assessment & Plan: Neurology (Dr. Peres) on the case help appreciated noted neuropathy b/l Ordered for lumbar spine w/o contrast CT-->follow-up EEG - R/O ANY FOCAL SLOWING OR PAROXYSMAL ACTIVITS FALL PRECAUTION Status: Chronic (12) Vertebral compression fracture Assessment & Plan: Patient completed CT abdomen/Pelvis on 03/18/18---> hepatosplenomegaly with adenopathy in this patient with anemia suggest possibility of hematologic malignancy, bilateral low density renal lesions, scattered colonic diverticula, compression fracture at T9 with 70 percent loss of height of vertebral body. Low density lesions noted within the spleen could represent splenic infarcts. 2mm nodule in the right middle lobe. Patient has completed lumbar CT per neurology please follow-up. Status: Acute (13) Prophylactic measure Assessment & Plan: Protonix 40mg IV q bid chemical anticoagulation held secondary to unexplained blood loss Fall precautions Status: Acute
--- NOTE | 2018-03-22 21:25 | CON ---
DATE: 03/22/2018 ATTENDING PHYSICIAN: Eugene Hassan MD. LOCATION: The patient's room number ICU, bed 17. REASON FOR CONSULTATION: Possible metastatic process. CHIEF COMPLAINT: The patient was brought into [facility] following a fall in her bathroom. From neurological point of view, I was called into evaluate her because of her nature of her history to rule out any neurological issues could be the cause for her problems. HISTORY OF PRESENT ILLNESS: Ms. Linda Barger is an 87-year-old right-handed female who lives with her family members. While she went in to the bathroom, she slipped and landed on her left side. She hit her left hip and left elbow. No history of loss of consciousness as per the patient. She immediately called for help, her grandson rushed to pick her up from the floor. Since the fall, she feels generalized weakness, left more than her right side. She denies headache. No history of visual or bulbar dysfunction. No neck pain. Diffuse pain in the back. No focal weakness besides than what she used to have usually. No similar fall in the past. No history of seizures. No history of involuntary movements. No history of visual or bulbar dysfunction. She has been using the cane and walker for almost 5 years. History of bowel and bladder incontinence. She has been using for almost a year. PAST MEDICAL HISTORY: Hypertension, coronary artery disease, status post stent placement, valve replacement. History of atrial fibrillation, status post pacemaker. ALLERGIES: TO SHELLFISH. MEDICATIONS: Diltiazem, Colace, Protonix, Synthroid, Toprol, and Tylenol. REVIEW OF SYSTEMS: Twelve-point system being reviewed. From neuro, history of fall. Rule out occult malignancy. PHYSICAL EXAMINATION: VITAL SIGNS: Blood pressure 116/62, mean artery pressure of 80, respiratory rate 16, temperature 98.4, pulse rate 98. NECK: Supple. No carotid bruits. HEART: Sounds irregular with ejection systolic murmur. EXTREMITIES: Significant distal more than proximal muscle groups. NEUROLOGIC EXAMINATION: Mental status examination: She is awake, alert and oriented to person, place, and time. Speech is clear. Naming, repetition, fluency, comprehension all within normal. No sign of hallucination. No sign of suicidal ideation. Cranial nerve examination: Visual field respond to visual threat and easy he could able to find the fingers on either side. Extraocular movement decreased in all direction. No primary gaze nystagmus. No facial sensory deficit. No facial asymmetry. Hearing is normal. Tongue is midline. Good gag. Motor examination: Outstretched hand with eyes closed, no drift noted. Mild sensory tremor noted. Deep tendon reflexes, biceps, brachialis, triceps 2+. Both knees are absent. Both ankles are absent. Plantars are upgoing on both sides. Sensory examination. No sensory level noted. Distal sensory motor neuropathy, posterior column is intact. Examination of the spine: Diffuse tenderness from cervical spine all the way down to lumbosacral area. No significant tenderness of any particular region. No band-like pain. Coordination: [id number], mild dysmetria noted. Gait: She could able to get out of the recliner on her own. Broad-based. Romberg sign negative. Tandem, she could not able to do. LABORATORY DATA: Her workup CT of the head being reviewed. X-ray of the lumbosacral spine, and x-ray of pelvis, all being reviewed, no acute pathology is noted. EKG, atrial fibrillation. Blood workup: WBC 3.5, hemoglobin 10.1, hematocrit 30.9, platelet 74. Sodium 138, potassium 4.7, chloride 100, bicarbonate 27, BUN 25, creatinine 0.9, GFR 59. ALT 112, AST 124, alkaline phosphatase is 374. B12 of 711. Folate 13.7 and T4 of 2.31. CONCLUSION: Ms. Linda Barger has been presenting with status post fall and injured her lower back and left elbow. 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 This is probably secondary to her underlying local pathology in the lumbosacral spine which could be a longstanding problem. From the fall, she does not admit any new progressive problem. The current examination does not show any supratentorial pathology. RECOMMENDATIONS: 1. CT of the lumbosacral spine to rule out any lumbosacral pathology. 2. Physical therapy, fall precaution. 3. Hematology/Oncology followup. The patient is scheduled to have bone marrow biopsy tomorrow. 4. Proper hydration. Keep the mean artery pressure around 100. The patient's condition is extensively discussed with her both sons and [id number]. The patient will be followed closely with you. Phuc Peres MD [facility] # [id number] AIXA
--- NOTE | 2018-03-22 21:58 | CP.PCM.PN ---
Subjective - Date & Time of Evaluation Date of Evaluation: 03/22/18 Time of Evaluation: 17:10 - Subjective Subjective: Patient seen and evaluated Comfortable Denies chest pain and dyspnea For bone marrow biospy on Friday Objective - Vital Signs/Intake and Output Vital Signs (last 24 hours): Temp Pulse Resp BP Pulse Ox 98.5 F 97 H 22 133/81 95 03/22/18 20:00 03/22/18 20:00 03/22/18 20:00 03/22/18 20:00 03/22/18 20:00 Intake and Output: 03/22/18 03/23/18 18:59 06:59 Intake Total 800 50 Output Total 250 Balance 550 50 - Medications Medications: Current Medications Acetaminophen (Tylenol 325mg Tab) 650 mg PO Q6H PRN PRN Reason: Headache Last Admin: 03/22/18 20:11 Dose: 650 mg Diltiazem HCl (Cardizem) 30 mg PO Q8H [facility] Last Admin: 03/22/18 20:11 Dose: 30 mg Docusate Sodium (Colace) 100 mg PO TID [facility] Last Admin: 03/22/18 18:20 Dose: Not Given Levothyroxine Sodium (Synthroid) 25 mcg PO Q24H [facility] Last Admin: 03/22/18 06:32 Dose: 25 mcg Metoprolol Succinate (Toprol Xl) 100 mg PO DAILY [facility] Last Admin: 03/22/18 10:01 Dose: 100 mg Pantoprazole Sodium (Protonix Inj) 40 mg IVP Q12H [facility] Last Admin: 03/22/18 13:32 Dose: 40 mg - Labs Labs: 03/22/18 06:41 03/22/18 06:35 PT 14.5 SECONDS (9.7-12.2) H 03/20/18 06:50 INR 1.3 03/20/18 06:50 APTT 37 SECONDS (21-34) H 03/18/18 12:57
--- NOTE | 2018-03-22 22:12 | CP.PCM.PN ---
Subjective - Date & Time of Evaluation Date of Evaluation: 03/20/18 Time of Evaluation: 12:15 - Subjective Subjective: Feeling better, son at bedside. Objective - Vital Signs/Intake and Output Vital Signs (last 24 hours): Temp Pulse Resp BP Pulse Ox 98.5 F 97 H 22 133/81 95 03/22/18 20:00 03/22/18 20:00 03/22/18 20:00 03/22/18 20:00 03/22/18 20:00 Intake and Output: 03/22/18 03/23/18 18:59 06:59 Intake Total 800 50 Output Total 250 Balance 550 50 - Medications Medications: Current Medications Acetaminophen (Tylenol 325mg Tab) 650 mg PO Q6H PRN PRN Reason: Headache Last Admin: 03/22/18 20:11 Dose: 650 mg Diltiazem HCl (Cardizem) 30 mg PO Q8H [facility] Last Admin: 03/22/18 20:11 Dose: 30 mg Docusate Sodium (Colace) 100 mg PO TID [facility] Last Admin: 03/22/18 18:20 Dose: Not Given Levothyroxine Sodium (Synthroid) 25 mcg PO Q24H [facility] Last Admin: 03/22/18 06:32 Dose: 25 mcg Metoprolol Succinate (Toprol Xl) 100 mg PO DAILY [facility] Last Admin: 03/22/18 10:01 Dose: 100 mg Pantoprazole Sodium (Protonix Inj) 40 mg IVP Q12H [facility] Last Admin: 03/22/18 13:32 Dose: 40 mg - Labs Labs: 03/22/18 06:41 03/22/18 06:35 PT 14.5 SECONDS (9.7-12.2) H 03/20/18 06:50 INR 1.3 03/20/18 06:50 APTT 37 SECONDS (21-34) H 03/18/18 12:57 - Head Exam Head Exam: ATRAUMATIC - Eye Exam Eye Exam: Normal appearance - ENT Exam ENT Exam: Mucous Membranes Dry - Respiratory Exam Respiratory Exam: NORMAL BREATHING PATTERN - Cardiovascular Exam Cardiovascular Exam: +S1, +S2 - GI/Abdominal Exam GI & Abdominal Exam: Normal Bowel Sounds Assessment and Plan (1) Pancytopenia Assessment & Plan: no iron/b12/folate deficiency no evidence of blood loss; FOBT negative ferritin elevated; anemia of chronic disease no evidence of hemolysis Status: Acute
--- NOTE | 2018-03-22 22:13 | CP.PCM.PN ---
Subjective - Date & Time of Evaluation Date of Evaluation: 03/21/18 Time of Evaluation: 16:00 - Subjective Subjective: No complaints, son at bedside. Objective - Vital Signs/Intake and Output Vital Signs (last 24 hours): Temp Pulse Resp BP Pulse Ox 98.5 F 97 H 22 133/81 95 03/22/18 20:00 03/22/18 20:00 03/22/18 20:00 03/22/18 20:00 03/22/18 20:00 Intake and Output: 03/22/18 03/23/18 18:59 06:59 Intake Total 800 50 Output Total 250 Balance 550 50 - Medications Medications: Current Medications Acetaminophen (Tylenol 325mg Tab) 650 mg PO Q6H PRN PRN Reason: Headache Last Admin: 03/22/18 20:11 Dose: 650 mg Diltiazem HCl (Cardizem) 30 mg PO Q8H [facility] Last Admin: 03/22/18 20:11 Dose: 30 mg Docusate Sodium (Colace) 100 mg PO TID [facility] Last Admin: 03/22/18 18:20 Dose: Not Given Levothyroxine Sodium (Synthroid) 25 mcg PO Q24H [facility] Last Admin: 03/22/18 06:32 Dose: 25 mcg Metoprolol Succinate (Toprol Xl) 100 mg PO DAILY [facility] Last Admin: 03/22/18 10:01 Dose: 100 mg Pantoprazole Sodium (Protonix Inj) 40 mg IVP Q12H [facility] Last Admin: 03/22/18 13:32 Dose: 40 mg - Labs Labs: 03/22/18 06:41 03/22/18 06:35 PT 14.5 SECONDS (9.7-12.2) H 03/20/18 06:50 INR 1.3 03/20/18 06:50 APTT 37 SECONDS (21-34) H 03/18/18 12:57 - Head Exam Head Exam: ATRAUMATIC - Eye Exam Eye Exam: Normal appearance - ENT Exam ENT Exam: Mucous Membranes Dry - Respiratory Exam Respiratory Exam: NORMAL BREATHING PATTERN - Cardiovascular Exam Cardiovascular Exam: +S1, +S2 - GI/Abdominal Exam GI & Abdominal Exam: Normal Bowel Sounds Assessment and Plan (1) Pancytopenia Assessment & Plan: discussed with the patient, her son, and PMD that she would benefit from bone marrow evaluation will plan to do after the weekend; pt and son consented Status: Acute
--- NOTE | 2018-03-22 22:14 | CP.PCM.PN ---
Subjective - Date & Time of Evaluation Date of Evaluation: 03/22/18 Time of Evaluation: 18:00 - Subjective Subjective: Feels nervous about upcoming bone marrow biopsy Objective - Vital Signs/Intake and Output Vital Signs (last 24 hours): Temp Pulse Resp BP Pulse Ox 98.5 F 97 H 22 133/81 95 03/22/18 20:00 03/22/18 20:00 03/22/18 20:00 03/22/18 20:00 03/22/18 20:00 Intake and Output: 03/22/18 03/23/18 18:59 06:59 Intake Total 800 50 Output Total 250 Balance 550 50 - Medications Medications: Current Medications Acetaminophen (Tylenol 325mg Tab) 650 mg PO Q6H PRN PRN Reason: Headache Last Admin: 03/22/18 20:11 Dose: 650 mg Diltiazem HCl (Cardizem) 30 mg PO Q8H [facility] Last Admin: 03/22/18 20:11 Dose: 30 mg Docusate Sodium (Colace) 100 mg PO TID [facility] Last Admin: 03/22/18 18:20 Dose: Not Given Levothyroxine Sodium (Synthroid) 25 mcg PO Q24H [facility] Last Admin: 03/22/18 06:32 Dose: 25 mcg Metoprolol Succinate (Toprol Xl) 100 mg PO DAILY [facility] Last Admin: 03/22/18 10:01 Dose: 100 mg Pantoprazole Sodium (Protonix Inj) 40 mg IVP Q12H [facility] Last Admin: 03/22/18 13:32 Dose: 40 mg - Labs Labs: 03/22/18 06:41 03/22/18 06:35 PT 14.5 SECONDS (9.7-12.2) H 03/20/18 06:50 INR 1.3 03/20/18 06:50 APTT 37 SECONDS (21-34) H 03/18/18 12:57 - Head Exam Head Exam: ATRAUMATIC - Eye Exam Eye Exam: Normal appearance - ENT Exam ENT Exam: Mucous Membranes Dry - Respiratory Exam Respiratory Exam: NORMAL BREATHING PATTERN - Cardiovascular Exam Cardiovascular Exam: +S1, +S2 - GI/Abdominal Exam GI & Abdominal Exam: Normal Bowel Sounds Assessment and Plan (1) Pancytopenia Assessment & Plan: for bone marrow biopsy Friday AM Status: Acute
[2018-03-23] MEDS: Levothyroxine 25 MCG TAB PO SCH (05:43)
[2018-03-23 06:36] LABS: EOS # 0.1 K/uL (0.0-0.7); EOS % 3.2 % (0.0-4.0); HEMOGLOBIN 9.7 g/dL (11.0-16.0); LYMPH # 0.6 K/uL (1.0-4.3); MEAN CELL VOLUME 81.7 fL (81.0-99.0); MEAN CORPUSCULAR HEMOGLOBIN 26.9 pg (27.0-31.0); MEAN CORPUSCULAR HGB CONC 32.9 g/dL (33.0-37.0); MONO # 0.6 K/uL (0.0-0.8); MONO % 16.5 % (0.0-10.0); NEUT # 2.1 K/uL (1.8-7.0); NEUT % 62.3 % (50.0-75.0); RBC 3.61 Mil/uL (3.80-5.20); RED CELL DISTRIBUTION WIDTH 16.9 % (11.5-14.5); WHITE BLOOD COUNT 3.4 K/uL (4.8-10.8)
[2018-03-23 06:55] LABS: ALB/GLOB RATIO 1.1 (1.0-2.1); ALBUMIN 3.2 g/dL (3.5-5.0); CALCIUM 9.3 mg/dl (8.6-10.4)
--- NOTE | 2018-03-23 09:55 | CT ---
PROCEDURE: CT lumbar spine dated 03/22/2018 HISTORY: Cauda equina syndrome COMPARISON: None. TECHNIQUE: Axial computed tomography images were obtained of the lumbar spine without the use of intravenous contrast. Coronal and sagittal reformatted images were created and reviewed. Radiation dose: Total exam DLP = 727.99 mGy-cm. This CT exam was performed using one or more of the following dose reduction techniques: Automated exposure control, adjustment of the mA and/or kV according to patient size, and/or use of iterative reconstruction technique. . FINDINGS: VERTEBRAE: No acute compression fractures no retropulsed fragments. Vertebral bodies exhibit normal stature. Minimal anterior subluxation L4 over L5 felt to be due to hypertrophic facet joints of the the pars interarticularis intact. Vertebral bodies otherwise exhibit normal alignment. DISCS/SPINAL CANAL/NEURAL FORAMINA: Multilevel degenerative spondylosis is present. L1-2: Posterior disc space narrowing with mild asymmetric broad-based bulge of the posterior annulus larger on left than right. There is some flattening of the ventral surface of the thecal sac with mild bilateral lateral recess narrowing. Central canal appears adequate. Exit foramina are mildly narrowed with no significant nerve root compression. . L2-3: Mild posterior disc space narrowing with small amount of vacuum disc phenomena. Moderate-sized broad-based disc protrusion that extends into the inferior margins of both exit foramina. The facets are hypertrophic and flavum buckled. There is significant bilateral lateral recess and central canal stenosis. The exit foramina are narrowed on the right with mild compression of the right-sided foraminal L2 root. Left exit foramen is also slightly narrowed with no significant nerve root compression. . L3-4: Mild to moderate posterior disc space narrowing with a small amount of vacuum disc phenomena. Small central and bilateral broad-based bulge of the posterior annulus extends slightly into the proximal inferior margins of both exit foramina. Facets are hypertrophic and flavum buckled. . There is resultant moderate bilateral lateral recess and central canal stenosis. The exit foramina are narrowed bilaterally with some minimal of compressive effects on the exiting L3 foraminal nerve roots. . . L4-5: There is mild posterior disc space narrowing. Slight uncovering of the posterior superior surface of the disc due to the aforementioned mild anterior subluxation. There is minimal broad-based bulge of the posterior annulus that extends into the proximal inferior margins of both exit foramina as well. The facets are hypertrophic and flavum are buckled. Changes result in minimal flattening of the ventral surface of the thecal sac. The exit foramina are slightly narrowed without significant foraminal nerve root compression. . L5-S1: Marked disc space narrowing with vacuum disc phenomena. There is a central and bilateral disc herniation associate with a calcification along the posterior annulus. The disc compresses the ventral surface of the thecal sac and results in mild canal stenosis. The disc also extends peripherally into proximal inferior margins of both exit foramina . The exit foramina adequate on the right though stenotic on the left with mild left-sided L5 foraminal nerve root compression. Degenerative spondylosis also seen at the T12-L1 and T11-T12 levels PARASPINAL SOFT TISSUES: Unremarkable. OTHER FINDINGS: None. . Note made of a parapelvic cyst right kidney. . Note also made of few scattered colonic diverticula along the sigmoid colon IMPRESSION: No acute compression fractures no retropulsed fragments. Minimal anterior subluxation L4 over L5. Multilevel degenerative spondylosis most significantly affecting the L3-L4 level where there is assessed fairly significant bilateral lateral recess and central canal stenosis as detailed above.
[2018-03-23] MEDS: Metoprolol Succinate 100 mg XL Tab PO SCH (10:32)
--- NOTE | 2018-03-23 11:08 | CP.PCM.PN ---
Subjective - Date & Time of Evaluation Date of Evaluation: 03/23/18 Time of Evaluation: 11:05 - Subjective Subjective: s/p BM bx renal function, lytes stable HTN controlled awaiting results of further workup no new complaints Objective - Vital Signs/Intake and Output Vital Signs (last 24 hours): Temp Pulse Resp BP Pulse Ox 97.6 F 98 H 25 H 126/68 95 03/23/18 04:00 03/23/18 04:00 03/23/18 04:00 03/23/18 04:00 03/23/18 04:00 Intake and Output: 03/23/18 03/23/18 06:59 18:59 Intake Total 100 Output Total 900 Balance -800 - Medications Medications: Current Medications Diltiazem HCl (Cardizem) 30 mg PO Q8H [facility] Last Admin: 03/23/18 03:53 Dose: 30 mg Docusate Sodium (Colace) 100 mg PO TID [facility] Last Admin: 03/22/18 18:20 Dose: Not Given Levothyroxine Sodium (Synthroid) 25 mcg PO Q24H [facility] Last Admin: 03/23/18 05:43 Dose: 25 mcg Metoprolol Succinate (Toprol Xl) 100 mg PO DAILY [facility] Last Admin: 03/23/18 10:32 Dose: 100 mg Pantoprazole Sodium (Protonix Inj) 40 mg IVP Q12H [facility] Last Admin: 03/23/18 02:31 Dose: 40 mg - Labs Labs: 03/23/18 06:28 03/23/18 06:23 PT 14.5 SECONDS (9.7-12.2) H 03/20/18 06:50 INR 1.3 03/20/18 06:50 APTT 37 SECONDS (21-34) H 03/18/18 12:57 - Constitutional Appears: In Acute Distress, Chronically Ill - Head Exam Head Exam: ATRAUMATIC, NORMAL INSPECTION - Eye Exam Eye Exam: EOMI, Normal appearance - Neck Exam Neck Exam: Normal Inspection. absent: Tenderness - Respiratory Exam Respiratory Exam: Clear to Ausculation Bilateral, NORMAL BREATHING PATTERN - Cardiovascular Exam Cardiovascular Exam: REGULAR RHYTHM, +S1 - GI/Abdominal Exam GI & Abdominal Exam: Soft. absent: Tenderness - Extremities Exam Extremities Exam: Normal Inspection. absent: Tenderness - Neurological Exam Neurological Exam: Altered, CN II-XII Intact - Skin Skin Exam: Dry, Warm Assessment and Plan (1) Fall (on) (from) other stairs and steps, sequela Status: Acute (2) HTN (hypertension) Status: Acute (3) Atrial fibrillation Status: Chronic (4) GI bleed Status: Acute (5) CKD (chronic kidney disease) stage 3, GFR 30-59 ml/min Status: Acute (6) Pancytopenia Status: Acute - Assessment and Plan (Free Text) Plan: Same meds check BM bx results continue to monitor renal function, lytes
--- NOTE | 2018-03-23 13:09 | PN ---
DATE: 03/23/2018 TIME OF EVALUATION: 7:05 a.m. NEUROLOGICAL PROBLEM: malignancy with loosing balance and history of a fall. PHYSICAL EXAMINATION: VITAL SIGNS: Blood pressure 126/68, mean arterial pressure of 87, respiratory rate 18, and temperature afebrile. NEUROLOGIC: The patient is sleeping soundly. On tactile stimuli, . She falls back in sleep. Neurological examination, which is unchanged from compared to my previous exam. The patient did have requested lumbosacral spine. Significant spondylolisthesis and severe degenerative disease noted over L5 and S1 region and posterior spondylolisthesis of L5 noted. However, official report is still pending. The patient is scheduled to have bone marrow biopsy for her abnormal hematological values. The patient will be followed closely with you. Phuc Peres MD
--- NOTE | 2018-03-23 13:30 | CP.PCM.PN ---
Subjective - Date & Time of Evaluation Date of Evaluation: 03/23/18 Time of Evaluation: 13:27 - Subjective Subjective: Medicine progress note for Dr. Lorrie Pittman (Hospitalist covering for Dr. Hassan) Patient was seen and examined at bedside in no acute distress. Patient states she sometimes feels short of breath, but otherwise has no other complains. She says she had a normal BM today, denies blood in stool, dysuria, hematuria. Patient denies chest pain, abdominal pain, nausea, vomiting, fevers, headaches. Objective - Vital Signs/Intake and Output Vital Signs (last 24 hours): Temp Pulse Resp BP Pulse Ox 97.7 F 123 H 28 H 128/68 99 03/23/18 12:00 03/23/18 12:00 03/23/18 12:00 03/23/18 10:00 03/23/18 12:00 Intake and Output: 03/23/18 03/23/18 06:59 18:59 Intake Total 100 360 Output Total 900 150 Balance -800 210 - Medications Medications: Current Medications Diltiazem HCl (Cardizem) 30 mg PO Q8H [facility] Last Admin: 03/23/18 13:07 Dose: 30 mg Docusate Sodium (Colace) 100 mg PO TID [facility] Last Admin: 03/23/18 10:30 Dose: Not Given Levothyroxine Sodium (Synthroid) 25 mcg PO Q24H [facility] Last Admin: 03/23/18 05:43 Dose: 25 mcg Metoprolol Succinate (Toprol Xl) 100 mg PO DAILY [facility] Last Admin: 03/23/18 10:32 Dose: 100 mg Pantoprazole Sodium (Protonix Inj) 40 mg IVP Q12H [facility] Last Admin: 03/23/18 02:31 Dose: 40 mg - Labs Labs: 03/23/18 06:28 03/23/18 06:23 PT 14.5 SECONDS (9.7-12.2) H 03/20/18 06:50 INR 1.3 03/20/18 06:50 APTT 37 SECONDS (21-34) H 03/18/18 12:57 - Constitutional Appears: No Acute Distress - Head Exam Head Exam: ATRAUMATIC, NORMAL INSPECTION - Eye Exam Eye Exam: EOMI, Normal appearance - ENT Exam ENT Exam: Mucous Membranes Moist - Respiratory Exam Respiratory Exam: Decreased Breath Sounds, Rales (b/l), NORMAL BREATHING PATTERN. absent: Respiratory Distress - Cardiovascular Exam Cardiovascular Exam: Irregular Rhythm, +S1, +S2 Additional comments: pacemaker- left chest - GI/Abdominal Exam GI & Abdominal Exam: Soft, Normal Bowel Sounds. absent: Distended, Tenderness - Extremities Exam Extremities Exam: absent: Pedal Edema, Tenderness - Neurological Exam Neurological Exam: Alert, Awake, Oriented x3 - Psychiatric Exam Psychiatric exam: Normal Affect, Normal Mood - Skin Skin Exam: Dry, Intact, Normal Color, Warm Assessment and Plan - Assessment and Plan (Free Text) Plan: (1) Status post fall Assessment & Plan: Patient came in status post fall. patient previously on anticoagulation including Eliquis and Aspirin which was held on admission. Imaging completed on admission: * Elbow xray (03/18/18): no acute fracture or dislocation. Moderate soft tissue edema overlies the olecranon process * Femur xray (03/18/18); no acute fracture or dislocation. No destructive bony lesion evidence. 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 * Head CT (03/18/18): no intracranial mass, hemorrhage, or evidence of acute infarct. Age-appropriate involutional changes. * Hip Xray (03/18/18): no acute fracture or dislocation left hip joint. Pelvic ring is intact including pubic symphysis. 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 * Knee xray (03/18/18): no acute fracture or dislocation. Advanced osteoarthritis. Patient has vertebral compression fracture noted on CT abdomen/pelvis Lumbar CT ordered by neurology- no acute compression fracture no retropulsed fragments; minimal anterior subluxation L4-L5; multilevel degenerative spondylosis most significantly affecting L3-4 level where there is assessed fairly significant b/l lateral recess and central canal stenosis. Brain MRI held since patient has a pacemaker. Patient was previously ordered for brain MRI. I have cancelled it. She has a pacemaker unclear if MRI safe. Nursing communication also placed as well as safety precaution to inform neurology (2) Anemia Assessment & Plan: Review of record: Patient was admitted to ICU. GI (Dr. Lord) on the case-->help appreciated Heme-Oncology (Dr. Rohan Collins) on the case--->help appreciated Patient came in status post fall. patient previously on anticoagulation including Eliquis and Aspirin which was held on admission. Patient required blood products during admission. Patient completed CT abdomen/Pelvis on 03/18/18---> hepatosplenomegaly with adenopathy in this patient with anemia suggest possibility of hematologic malignancy, bilateral low density renal lesions, scattered colonic diverticula, compression fracture at T9 with 70 percent loss of height of vertebral body. Low density lesions noted within the spleen could represent splenic infarcts. 2mm nodule in the right middle lobe. Patient completed EGD 03/19 with findings: non-bleeding esophageal ulcer, non- bleeding duodenal ulcer with no stigmata of bleeding * Recommend PPI BID, check Hgb, advance diet Patient is undergoing hematological workup. * Patient also has elevated liver enzymes, LDH elevation noted, low platelets and low WBC noted, CAT scan of the abdomen showing lymphadenopathy changes, mild hepatosplenomegaly also noted, underlying malignancy, hematological malignancy cannot be ruled out. * Scheduled for bone marrow biopsy on Friday w/Dr. Collins (3) Atrial fibrillation Assessment & Plan: Cardiology (Dr. Gaitan) on the case-->help appreciated Patient came in status post fall. patient previously on anticoagulation including Eliquis and Aspirin which was held on admission. Patient is not on chemical anticoagulation secondary to subacute blood loss Discontinue Amiodarone given elevated LFTs Lower Cardizem 30mg POq8H-->patient is hypotensive today Toprol XL 100mg PO daily (4) CAD (coronary artery disease) Assessment & Plan: Cardiology (Dr. 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 Lawrence) on the case-->help appreciated monitor BUN/Cr (8) Pancytopenia Assessment & Plan: Hematology-oncology (Dr. Rohan Collins) on the case-->help appreciated Patient came in with low hemoglobin while on anticoagulation Patient required multiple blood products retic count, b12, folate - wnl mild tbili elevation; will fractionate bilirubin, LDH, haptoglobin ? hemolysis ferritin elevated; anemia of chronic disease FOBT negative platelet count was normal on admission; cont. to monitor ? medication related mild leukopenia, no neutropenia *Patient is scheduled for bone marrow biopsy for Friday on March 24 in the AM bedside with Dr. Rohan Collins. (9) Transaminitis Assessment & Plan: to check CMV titre due to leukopenia, increased LFTs Patient is off amiodarone given LFTs discontinue tylenol given LFTs Patient completed CT abdomen/Pelvis on 03/18/18---> hepatosplenomegaly with adenopathy in this patient with anemia suggest possibility of hematologic malignancy, bilateral low density renal lesions, scattered colonic diverticula, compression fracture at T9 with 70 percent loss of height of vertebral body. Low density lesions noted within the spleen could represent splenic infarcts. 2mm nodule in the right middle lobe. (10) Abnormal chest xray Assessment & Plan: noted chest xray 03/21 will order for mycoplasma IGM, legionella, and strep and procalcitonin Patient does not present clinically as pneumonia (11) PACO (cauda equina syndrome) Assessment & Plan: Neurology (Dr. Peres) on the case help appreciated noted neuropathy b/l Lumbar CT ordered by neurology- no acute compression fracture no retropulsed fragments; minimal anterior subluxation L4-L5; multilevel degenerative spondylosis most significantly affecting L3-4 level where there is assessed fairly significant b/l lateral recess and central canal stenosis. Brain MRI held since patient has a pacemaker. EEG - r/o focal slowing or paroxysmal activity Fall precaution (12) Vertebral compression fracture Assessment & Plan: Patient completed CT abdomen/Pelvis on 03/18/18---> hepatosplenomegaly with adenopathy in this patient with anemia suggest possibility of hematologic malignancy, bilateral low density renal lesions, scattered colonic diverticula, compression fracture at T9 with 70 percent loss of height of vertebral body. Low density lesions noted within the spleen could represent splenic infarcts. 2mm nodule in the right middle lobe. Lumbar CT ordered by neurology- no acute compression fracture no retropulsed fragments; minimal anterior subluxation L4-L5; multilevel degenerative spondylosis most significantly affecting L3-4 level where there is assessed fairly significant b/l lateral recess and central canal stenosis. Brain MRI held since patient has a pacemaker. (13) Prophylactic measure Assessment & Plan: Protonix 40mg IV q bid chemical anticoagulation held secondary to unexplained blood loss Fall precautions PT/OT Case management/social consulted for discharge plans to [facility]. Disposition: Patient scheduled for bone marrow biopsy for FridayMarch 24 in the AM bedside with Dr. Rohan Collins.
--- NOTE | 2018-03-23 15:16 | NM ---
PROCEDURE: Whole Body Bone Scan HISTORY: s/p fall Anatomic areas of interest left elbow on left lower extremity COMPARISON: 03/18/2018 radiographs left elbow and left hip and left knee. 03/18/2018 CT abdomen and pelvis March 22, 2018. CT lumbar spine. TECHNIQUE: Following administration of 24.2 miCu of Tc MDP multiplanar whole body images were obtained. FINDINGS: Evidence for bony metastatic disease: None. Degenerative uptake: Increased uptake T9 vertebral body consistent with compression deformity identified on prior CT scan of the abdomen and pelvis. Bilateral knees left greater than right. Physiologic uptake: Normal physiologic activity in the kidneys. Other findings: None. IMPRESSION: Degenerative changes and likely compression deformity from old fracture T9 vertebral body. Additional benign and/or incidental findings described above.
--- NOTE | 2018-03-23 15:25 | CP.PCM.PN ---
Subjective - Date & Time of Evaluation Date of Evaluation: 03/23/18 Time of Evaluation: 15:23 - Subjective Subjective: CC: anemia Weak, dyspneic No overt GI bleeding Esophageal and gastric ulcers Pancytopenic/ adenopathy: BM bx planned to evaluate anemia Objective - Vital Signs/Intake and Output Vital Signs (last 24 hours): Temp Pulse Resp BP Pulse Ox 97.7 F 123 H 28 H 128/68 99 03/23/18 12:00 03/23/18 12:00 03/23/18 12:00 03/23/18 10:00 03/23/18 12:00 Intake and Output: 03/23/18 03/23/18 06:59 18:59 Intake Total 100 360 Output Total 900 150 Balance -800 210 - Medications Medications: Current Medications Diltiazem HCl (Cardizem) 30 mg PO Q8H [facility] Last Admin: 03/23/18 13:07 Dose: 30 mg Docusate Sodium (Colace) 100 mg PO TID [facility] Last Admin: 03/23/18 10:30 Dose: Not Given Levothyroxine Sodium (Synthroid) 25 mcg PO Q24H [facility] Last Admin: 03/23/18 05:43 Dose: 25 mcg Metoprolol Succinate (Toprol Xl) 100 mg PO DAILY [facility] Last Admin: 03/23/18 10:32 Dose: 100 mg Pantoprazole Sodium (Protonix Inj) 40 mg IVP Q12H [facility] Last Admin: 03/23/18 14:50 Dose: 40 mg - Labs Labs: 03/23/18 06:28 03/23/18 06:23 PT 14.5 SECONDS (9.7-12.2) H 03/20/18 06:50 INR 1.3 03/20/18 06:50 APTT 37 SECONDS (21-34) H 03/18/18 12:57 - Constitutional Appears: Chronically Ill - Head Exam Head Exam: NORMOCEPHALIC - Respiratory Exam Respiratory Exam: NORMAL BREATHING PATTERN - Cardiovascular Exam Cardiovascular Exam: Tachycardia - GI/Abdominal Exam GI & Abdominal Exam: Soft. absent: Distended, Tenderness, Mass Assessment and Plan (1) Coagulopathy Status: Acute (2) Severe anemia Assessment & Plan: R/O hematologic malignancy Heme following Status: Acute (3) Afib Status: Acute (4) Aortic valve disease Status: Acute
[2018-03-23 16:09] LABS: HEPATITIS B SURFACE AG Negative (NEGATIVE)
[2018-03-23 16:15] LABS: HEPATITIS A IGM NEGATIVE (NEGATIVE); HEPATITIS B CORE AB NEGATIVE (NEGATIVE)
[2018-03-23 16:27] LABS: HEPATITIS C ANTIBODY NEGATIVE (NEGATIVE)
[2018-03-23 19:55] LABS: MYCOPLASMA PNEUMONIAE IGM NEGATIVE (NEGATIVE)
[2018-03-24] MEDS: Levothyroxine 25 MCG TAB PO SCH (06:29)
[2018-03-24 07:15] LABS: BASO % 0.9 % (0.0-2.0); EOS # 0.2 K/uL (0.0-0.7); EOS % 3.3 % (0.0-4.0); HEMOGLOBIN 10.3 g/dL (11.0-16.0); LYMPH # 0.6 K/uL (1.0-4.3); LYMPH % 12.8 % (20.0-40.0); MEAN CELL VOLUME 81.5 fL (81.0-99.0); MEAN CORPUSCULAR HGB CONC 33.1 g/dL (33.0-37.0); MEAN PLATELET VOLUME 8.9 fL (7.2-11.7); MONO # 0.7 K/uL (0.0-0.8); MONO % 14.1 % (0.0-10.0); NEUT # 3.2 K/uL (1.8-7.0); NEUT % 68.9 % (50.0-75.0); RBC 3.81 Mil/uL (3.80-5.20); RED CELL DISTRIBUTION WIDTH 17.5 % (11.5-14.5); WHITE BLOOD COUNT 4.7 K/uL (4.8-10.8)
--- NOTE | 2018-03-24 07:19 | CP.PCM.PN ---
<Estela Jeffers - Last Filed: 03/24/18 16:01> Subjective - Date & Time of Evaluation Date of Evaluation: 03/24/18 Time of Evaluation: 07:19 - Subjective Subjective: Medicine progress note for Dr. Pittman (Hospitalist covering for Dr. Hassan) Patient was seen and examined at bedside in no acute distress. Patient was oob to chair. She denies complaints and states she feels better than yesterday. At time of evaluation, patient denies feeling short of breath. Patient denies chest pain, abdominal pain, dyspnea, nausea, vomiting, fevers, headaches, dysuria, constipation, and diarrhea. Objective - Vital Signs/Intake and Output Vital Signs (last 24 hours): Temp Pulse Resp BP Pulse Ox 98.8 F 110 H 18 113/80 95 03/24/18 04:00 03/24/18 04:00 03/24/18 04:00 03/24/18 04:00 03/24/18 04:00 Intake and Output: 03/24/18 03/24/18 06:59 18:59 Intake Total 150 Output Total 300 Balance -150 - Medications Medications: Current Medications Diltiazem HCl (Cardizem) 30 mg PO Q8H [facility] Last Admin: 03/24/18 04:26 Dose: 30 mg Diphenhydramine HCl (Benadryl) 25 mg PO HS PRN PRN Reason: Sleep Docusate Sodium (Colace) 100 mg PO TID [facility] Last Admin: 03/23/18 17:35 Dose: Not Given Levothyroxine Sodium (Synthroid) 25 mcg PO Q24H [facility] Last Admin: 03/24/18 06:29 Dose: 25 mcg Metoprolol Succinate (Toprol Xl) 100 mg PO DAILY [facility] Last Admin: 03/23/18 10:32 Dose: 100 mg Pantoprazole Sodium (Protonix Inj) 40 mg IVP Q12H [facility] Last Admin: 03/24/18 02:22 Dose: 40 mg - Labs Labs: 03/23/18 06:28 03/23/18 06:23 PT 14.5 SECONDS (9.7-12.2) H 03/20/18 06:50 INR 1.3 03/20/18 06:50 APTT 37 SECONDS (21-34) H 03/18/18 12:57 - Additional Findings Additional findings: - Constitutional Appears: No Acute Distress - Head Exam Head Exam: ATRAUMATIC, NORMAL INSPECTION - Eye Exam Eye Exam: EOMI, Normal appearance - ENT Exam ENT Exam: Mucous Membranes Moist - Respiratory Exam Respiratory Exam: Decreased Breath Sounds, Rales (b/l), NORMAL BREATHING PATTERN. absent: Respiratory Distress - Cardiovascular Exam Cardiovascular Exam: Irregular Rhythm, +S1, +S2 Additional comments: pacemaker- left chest - GI/Abdominal Exam GI & Abdominal Exam: Soft, Normal Bowel Sounds. absent: Distended, Tenderness - Extremities Exam Extremities Exam: absent: Pedal Edema, Tenderness - Neurological Exam Neurological Exam: Alert, Awake, Oriented x3 - Psychiatric Exam Psychiatric exam: Normal Affect, Normal Mood - Skin Skin Exam: Dry, Intact, Normal Color, Warm Assessment and Plan - Assessment and Plan (Free Text) Plan: (1) Status post fall Assessment & Plan: Patient came in status post fall. patient previously on anticoagulation including Eliquis and Aspirin which was held on admission. Imaging completed on admission: * Elbow xray (03/18/18): no acute fracture or dislocation. Moderate soft tissue edema overlies the olecranon process * Femur xray (03/18/18); no acute fracture or dislocation. No destructive bony lesion evidence. 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 * Head CT (03/18/18): no intracranial mass, hemorrhage, or evidence of acute infarct. Age-appropriate involutional changes. * Hip Xray (03/18/18): no acute fracture or dislocation left hip joint. Pelvic ring is intact including pubic symphysis. 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 * Knee xray (03/18/18): no acute fracture or dislocation. Advanced osteoarthritis. Patient has vertebral compression fracture noted on CT abdomen/pelvis Lumbar CT ordered by neurology- no acute compression fracture no retropulsed fragments; minimal anterior subluxation L4-L5; multilevel degenerative spondylosis most significantly affecting L3-4 level where there is assessed fairly significant b/l lateral recess and central canal stenosis. Brain MRI held since patient has a pacemaker. Patient was previously ordered for brain MRI. MRI cancelled because She has a pacemaker- unclear if MRI safe. Nursing communication also placed as well as safety precaution to inform neurology (2) Anemia Assessment & Plan: Review of record: Patient was admitted to ICU. GI (Dr. Lord) on the case-->help appreciated Heme-Oncology (Dr. Rohan Collins) on the case--->help appreciated Patient came in status post fall. patient previously on anticoagulation including Eliquis and Aspirin which was held on admission. Patient required blood products during admission. Patient completed CT abdomen/Pelvis on 03/18/18---> hepatosplenomegaly with adenopathy in this patient with anemia suggest possibility of hematologic malignancy, bilateral low density renal lesions, scattered colonic diverticula, compression fracture at T9 with 70 percent loss of height of vertebral body. Low density lesions noted within the spleen could represent splenic infarcts. 2mm nodule in the right middle lobe. Patient completed EGD 03/19 with findings: non-bleeding esophageal ulcer, non- bleeding duodenal ulcer with no stigmata of bleeding * Recommend PPI BID, check Hgb, advance diet Patient is undergoing hematological workup. * Patient also has elevated liver enzymes, LDH elevation noted, low platelets and low WBC noted, CAT scan of the abdomen showing lymphadenopathy changes, mild hepatosplenomegaly also noted, underlying malignancy, hematological malignancy cannot be ruled out. (3) Atrial fibrillation Assessment & Plan: Cardiology (Dr. Gaitan) on the case-->help appreciated Patient came in status post fall. patient previously on anticoagulation including Eliquis and Aspirin which was held on admission. Patient is not on chemical anticoagulation secondary to subacute blood loss Discontinue Amiodarone given elevated LFTs Lower Cardizem 30mg POq8H-->patient is hypotensive today Toprol XL 100mg PO daily (4) CAD (coronary artery disease) Assessment & Plan: Cardiology (Dr. 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 Lawrence) on the case-->help appreciated monitor BUN/Cr (8) Pancytopenia Assessment & Plan: Hematology-oncology (Dr. Rohan Collins) on the case-->help appreciated Patient came in with low hemoglobin while on anticoagulation Patient required multiple blood products retic count, b12, folate - wnl mild tbili elevation; will fractionate bilirubin, LDH, haptoglobin ? hemolysis ferritin elevated; anemia of chronic disease FOBT negative platelet count was normal on admission; cont. to monitor ? medication related mild leukopenia, no neutropenia * Patient s/p bone marrow biopsy with Dr. Rohan Collins, follow up results. (9) Transaminitis Assessment & Plan: to check CMV titre due to leukopenia, increased LFTs Patient is off amiodarone given LFTs discontinue tylenol given LFTs Patient completed CT abdomen/Pelvis on 03/18/18---> hepatosplenomegaly with adenopathy in this patient with anemia suggest possibility of hematologic malignancy, bilateral low density renal lesions, scattered colonic diverticula, compression fracture at T9 with 70 percent loss of height of vertebral body. Low density lesions noted within the spleen could represent splenic infarcts. 2mm nodule in the right middle lobe. (10) Abnormal chest xray Assessment & Plan: noted chest xray 03/21 will order for mycoplasma IGM, legionella, and strep and procalcitonin Patient does not present clinically as pneumonia (11) PACO (cauda equina syndrome) Assessment & Plan: Neurology (Dr. Peres) on the case help appreciated noted neuropathy b/l Lumbar CT ordered by neurology- no acute compression fracture no retropulsed fragments; minimal anterior subluxation L4-L5; multilevel degenerative spondylosis most significantly affecting L3-4 level where there is assessed fairly significant b/l lateral recess and central canal stenosis. Brain MRI held since patient has a pacemaker. EEG - r/o focal slowing or paroxysmal activity Fall precaution (12) Vertebral compression fracture Assessment & Plan: Patient completed CT abdomen/Pelvis on 03/18/18---> hepatosplenomegaly with adenopathy in this patient with anemia suggest possibility of hematologic malignancy, bilateral low density renal lesions, scattered colonic diverticula, compression fracture at T9 with 70 percent loss of height of vertebral body. Low density lesions noted within the spleen could represent splenic infarcts. 2mm nodule in the right middle lobe. Lumbar CT ordered by neurology- no acute compression fracture no retropulsed fragments; minimal anterior subluxation L4-L5; multilevel degenerative spondylosis most significantly affecting L3-4 level where there is assessed fairly significant b/l lateral recess and central canal stenosis. Brain MRI held since patient has a pacemaker. (13) Prophylactic measure Assessment & Plan: Protonix 40mg IV q bid chemical anticoagulation held secondary to unexplained blood loss Fall precautions PT/OT Case management/social consulted for discharge plans to home with home services. Patient refused KISHA. Disposition: Patient s/p bone marrow biopsy with Dr. Rohan Collins, follow up results. <Jaycob Pittman - Last Filed: 03/24/18 21:01> Objective - Vital Signs/Intake and Output Vital Signs (last 24 hours): Temp Pulse Resp BP Pulse Ox 98 F 92 H 17 102/64 100 03/24/18 20:00 03/24/18 20:00 03/24/18 20:00 03/24/18 20:00 03/24/18 20:00 Intake and Output: 03/24/18 03/25/18 18:59 06:59 Intake Total 590 Output Total 1100 Balance -510 - Medications Medications: Current Medications Diltiazem HCl (Cardizem) 30 mg PO Q8H [facility] Last Admin: 03/24/18 20:25 Dose: 30 mg Diphenhydramine HCl (Benadryl) 25 mg PO HS PRN PRN Reason: Sleep Last Admin: 03/24/18 20:25 Dose: 25 mg Docusate Sodium (Colace) 100 mg PO TID [facility] Last Admin: 03/24/18 17:22 Dose: 100 mg Levothyroxine Sodium (Synthroid) 25 mcg PO Q24H [facility] Last Admin: 03/24/18 06:29 Dose: 25 mcg Metoprolol Succinate (Toprol Xl) 100 mg PO DAILY [facility] Last Admin: 03/24/18 10:06 Dose: 100 mg Pantoprazole Sodium (Protonix Inj) 40 mg IVP Q12H [facility] Last Admin: 03/24/18 13:16 Dose: 40 mg - Labs Labs: 03/24/18 07:10 03/24/18 07:10 PT 14.5 SECONDS (9.7-12.2) H 03/20/18 06:50 INR 1.3 03/20/18 06:50 APTT 37 SECONDS (21-34) H 03/18/18 12:57 Attending/Attestation - Attestation I have personally seen and examined this patient.: Yes I have fully participated in the care of the patient.: Yes I have reviewed all pertinent clinical information, including history, physical exam and plan: Yes Notes (Text): 03/24/18 20:54 Patient was seen and examined at 5:15 PM Patient was discussed with Resident Dr. Jamil Also on ROS: NO bowel movement today (last was yesterday) Lower back pain is tolerable NO numbness/paresthesias Left Hip pain at bone marrow biopsy site that is described as a soreness but is also tolerable Feels generalized weakness Also on Exam: LLL faint inspiratory crackles Holosystolic murmurs Skin exam performed with nurse did not reveal any ulcers Spoke with Dr. Rohan Collins who performed Bone Marrow Biopsy earlier this morning with Resident Dr. Jamil and he will notify medicine team once he has a prelminary pathology which should be hopefully on /Friday of this week. For KISHA (as recommended by PT) once deemed stable Jaycob Pittman D.O.
[2018-03-24 07:45] LABS: ALB/GLOB RATIO 1.2 (1.0-2.1); ALBUMIN 3.5 g/dL (3.5-5.0); ALT/SGPT 135 U/L (9-52); AST/SGOT 136 U/L (14-36); BLOOD UREA NITROGEN 20 mg/dL (7-17); CALCIUM 9.3 mg/dl (8.6-10.4); GFR AFRICAN-AMERICAN > 60; GFR NON-AFRICAN AMERICAN 53
--- NOTE | 2018-03-24 08:11 | CP.PCM.PN ---
Subjective - Date & Time of Evaluation Date of Evaluation: 03/24/18 Time of Evaluation: 07:45 - Subjective Subjective: f/u anemia. Deneis abd pain, RB, melena, fever, chills, SZ, LOC, GAITAN, cough, hematuria Objective - Vital Signs/Intake and Output Vital Signs (last 24 hours): Temp Pulse Resp BP Pulse Ox 98.8 F 110 H 18 113/80 95 03/24/18 04:00 03/24/18 04:00 03/24/18 04:00 03/24/18 04:00 03/24/18 04:00 Intake and Output: 03/24/18 03/24/18 06:59 18:59 Intake Total 150 Output Total 700 Balance -550 - Medications Medications: Current Medications Diltiazem HCl (Cardizem) 30 mg PO Q8H [facility] Last Admin: 03/24/18 04:26 Dose: 30 mg Diphenhydramine HCl (Benadryl) 25 mg PO HS PRN PRN Reason: Sleep Docusate Sodium (Colace) 100 mg PO TID [facility] Last Admin: 03/23/18 17:35 Dose: Not Given Levothyroxine Sodium (Synthroid) 25 mcg PO Q24H [facility] Last Admin: 03/24/18 06:29 Dose: 25 mcg Metoprolol Succinate (Toprol Xl) 100 mg PO DAILY [facility] Last Admin: 03/23/18 10:32 Dose: 100 mg Pantoprazole Sodium (Protonix Inj) 40 mg IVP Q12H [facility] Last Admin: 03/24/18 02:22 Dose: 40 mg - Labs Labs: 03/24/18 07:10 03/24/18 07:10 PT 14.5 SECONDS (9.7-12.2) H 03/20/18 06:50 INR 1.3 03/20/18 06:50 APTT 37 SECONDS (21-34) H 03/18/18 12:57 - Constitutional Appears: Well - Respiratory Exam Respiratory Exam: Clear to Ausculation Bilateral - Cardiovascular Exam Cardiovascular Exam: RRR - GI/Abdominal Exam GI & Abdominal Exam: Soft, Normal Bowel Sounds. absent: Guarding, Tenderness - Extremities Exam Extremities Exam: absent: Calf Tenderness - Neurological Exam Neurological Exam: Alert, Awake, Oriented x3 Assessment and Plan (1) Atrial fibrillation Status: Chronic (2) HTN (hypertension) Status: Acute (3) Severe anemia Assessment & Plan: Getting BM Bx/. Check Hb Status: Acute (4) CAD (coronary artery disease) Status: Chronic
[2018-03-24 09:22] LABS: ALBUMIN (PEP) 2.6 g/dL (3.8-4.8); ALPHA-1-GLOBULIN (PEP) 0.6 g/dL (0.2-0.3)
[2018-03-24] MEDS: Metoprolol Succinate 100 mg XL Tab PO SCH (10:06)
--- NOTE | 2018-03-24 11:59 | CP.PCM.PN ---
Subjective - Date & Time of Evaluation Date of Evaluation: 03/24/18 Time of Evaluation: 11:58 - Subjective Subjective: seen and examined bone marrow biopsy done still w/ some pain otherwise denies any n/v/d/f/c/sob/dizziness/headache good uop Objective - Vital Signs/Intake and Output Vital Signs (last 24 hours): Temp Pulse Resp BP Pulse Ox 98.5 F 100 H 18 117/85 99 03/24/18 08:00 03/24/18 08:00 03/24/18 08:00 03/24/18 08:00 03/24/18 08:00 Intake and Output: 03/24/18 03/24/18 06:59 18:59 Intake Total 150 Output Total 700 Balance -550 - Medications Medications: Current Medications Diltiazem HCl (Cardizem) 30 mg PO Q8H [facility] Last Admin: 03/24/18 04:26 Dose: 30 mg Diphenhydramine HCl (Benadryl) 25 mg PO HS PRN PRN Reason: Sleep Docusate Sodium (Colace) 100 mg PO TID [facility] Last Admin: 03/24/18 10:06 Dose: Not Given Levothyroxine Sodium (Synthroid) 25 mcg PO Q24H [facility] Last Admin: 03/24/18 06:29 Dose: 25 mcg Metoprolol Succinate (Toprol Xl) 100 mg PO DAILY [facility] Last Admin: 03/24/18 10:06 Dose: 100 mg Pantoprazole Sodium (Protonix Inj) 40 mg IVP Q12H [facility] Last Admin: 03/24/18 02:22 Dose: 40 mg - Labs Labs: 03/24/18 07:10 03/24/18 07:10 PT 14.5 SECONDS (9.7-12.2) H 03/20/18 06:50 INR 1.3 03/20/18 06:50 APTT 37 SECONDS (21-34) H 03/18/18 12:57 - Constitutional Appears: Non-toxic, No Acute Distress, Chronically Ill - Head Exam Head Exam: NORMAL INSPECTION, NORMOCEPHALIC - Eye Exam Eye Exam: Normal appearance, PERRL - ENT Exam ENT Exam: Mucous Membranes Moist, Normal Exam - Neck Exam Neck Exam: Full ROM, Normal Inspection - Respiratory Exam Respiratory Exam: Clear to Ausculation Bilateral, NORMAL BREATHING PATTERN - Cardiovascular Exam Cardiovascular Exam: Tachycardia, REGULAR RHYTHM - GI/Abdominal Exam GI & Abdominal Exam: Distended, Soft - Extremities Exam Extremities Exam: Normal Inspection - Neurological Exam Neurological Exam: Alert, Awake, Oriented x3 - Psychiatric Exam Psychiatric exam: Normal Affect, Normal Mood - Skin Skin Exam: Dry, Intact Assessment and Plan (1) Anemia Status: Acute (2) Blood loss anemia Status: Acute (3) Chronic kidney disease Status: Acute (4) Fall (on) (from) other stairs and steps, sequela Status: Acute (5) HTN (hypertension) Status: Acute (6) Pancytopenia Status: Acute - Assessment and Plan (Free Text) Assessment: stable renal function avoid nephrotoxic drugs f/u bone marrow biopsy
--- NOTE | 2018-03-24 12:09 | CP.PCM.PN ---
Subjective - Date & Time of Evaluation Date of Evaluation: 03/24/18 Time of Evaluation: 11:00 - Subjective Subjective: Bone marrow aspiration and biopsy procedure Indication: Pancytopenia - Time-out was called to confirm: patients name and date of , procedure, side and site of biopsy, safety procedures followed. - Performed by: self. - Other physicians present: Estela Jeffers D.O. - Informed consent: signed by patient. - Aspiration and biopsy site: [left] superior posterior iliac crest. - Patient position: [right lateral decubitus] - Preparation and technique: sterile preparation of site with Betadyne, Chloraprep, draped to expose aspirate/biopsy area, local anesthesia with 1% lidocaine (approximately 10ml), frequent pressure application on incision to maintain hemostasis. - Tissue obtained: bone marrow aspirate and biopsy were successfully obtained in sterile manner. - Toleration of procedure and any complications: slight localized bleeding (<1ml ). Patient tolerated procedure well with minimal pain. Objective - Vital Signs/Intake and Output Vital Signs (last 24 hours): Temp Pulse Resp BP Pulse Ox 98.5 F 100 H 18 117/85 99 03/24/18 08:00 03/24/18 08:00 03/24/18 08:00 03/24/18 08:00 03/24/18 08:00 Intake and Output: 03/24/18 03/24/18 06:59 18:59 Intake Total 150 Output Total 700 Balance -550 - Medications Medications: Current Medications Diltiazem HCl (Cardizem) 30 mg PO Q8H [facility] Last Admin: 03/24/18 04:26 Dose: 30 mg Diphenhydramine HCl (Benadryl) 25 mg PO HS PRN PRN Reason: Sleep Docusate Sodium (Colace) 100 mg PO TID [facility] Last Admin: 03/24/18 10:06 Dose: Not Given Levothyroxine Sodium (Synthroid) 25 mcg PO Q24H [facility] Last Admin: 03/24/18 06:29 Dose: 25 mcg Metoprolol Succinate (Toprol Xl) 100 mg PO DAILY [facility] Last Admin: 03/24/18 10:06 Dose: 100 mg Pantoprazole Sodium (Protonix Inj) 40 mg IVP Q12H [facility] Last Admin: 03/24/18 02:22 Dose: 40 mg - Labs Labs: 03/24/18 07:10 03/24/18 07:10 PT 14.5 SECONDS (9.7-12.2) H 03/20/18 06:50 INR 1.3 03/20/18 06:50 APTT 37 SECONDS (21-34) H 03/18/18 12:57 - Head Exam Head Exam: ATRAUMATIC - Eye Exam Eye Exam: Normal appearance - ENT Exam ENT Exam: Mucous Membranes Dry - Respiratory Exam Respiratory Exam: NORMAL BREATHING PATTERN - Cardiovascular Exam Cardiovascular Exam: +S1, +S2 - GI/Abdominal Exam GI & Abdominal Exam: Normal Bowel Sounds - Extremities Exam Extremities Exam: Normal Inspection Assessment and Plan (1) Pancytopenia Assessment & Plan: s/p bone marrow biopsy f/u results Status: Acute
--- NOTE | 2018-03-24 12:12 | CP.PCM.PN ---
Subjective - Date & Time of Evaluation Date of Evaluation: 03/23/18 Time of Evaluation: 18:00 - Subjective Subjective: No complaints. Objective - Vital Signs/Intake and Output Vital Signs (last 24 hours): Temp Pulse Resp BP Pulse Ox 98.5 F 100 H 18 117/85 99 03/24/18 08:00 03/24/18 08:00 03/24/18 08:00 03/24/18 08:00 03/24/18 08:00 Intake and Output: 03/24/18 03/24/18 06:59 18:59 Intake Total 150 Output Total 700 Balance -550 - Medications Medications: Current Medications Diltiazem HCl (Cardizem) 30 mg PO Q8H [facility] Last Admin: 03/24/18 04:26 Dose: 30 mg Diphenhydramine HCl (Benadryl) 25 mg PO HS PRN PRN Reason: Sleep Docusate Sodium (Colace) 100 mg PO TID [facility] Last Admin: 03/24/18 10:06 Dose: Not Given Levothyroxine Sodium (Synthroid) 25 mcg PO Q24H [facility] Last Admin: 03/24/18 06:29 Dose: 25 mcg Metoprolol Succinate (Toprol Xl) 100 mg PO DAILY [facility] Last Admin: 03/24/18 10:06 Dose: 100 mg Pantoprazole Sodium (Protonix Inj) 40 mg IVP Q12H [facility] Last Admin: 03/24/18 02:22 Dose: 40 mg - Labs Labs: 03/24/18 07:10 03/24/18 07:10 PT 14.5 SECONDS (9.7-12.2) H 03/20/18 06:50 INR 1.3 03/20/18 06:50 APTT 37 SECONDS (21-34) H 03/18/18 12:57 - Head Exam Head Exam: ATRAUMATIC - Eye Exam Eye Exam: Normal appearance - ENT Exam ENT Exam: Mucous Membranes Dry - Respiratory Exam Respiratory Exam: NORMAL BREATHING PATTERN - Cardiovascular Exam Cardiovascular Exam: +S1, +S2 - GI/Abdominal Exam GI & Abdominal Exam: Normal Bowel Sounds Assessment and Plan (1) Pancytopenia Assessment & Plan: for bone marrow biopsy in AM Status: Acute
--- NOTE | 2018-03-24 13:11 | PN ---
DATE: 03/24/2018 UNIT NUMBER: [id number] NEUROLOGICAL PROBLEM: Rule out pathological fracture related to her occult malignancy. PHYSICAL EXAMINATION: GENERAL: The patient is in sound sleep. Not arousable on verbal stimuli or tactile stimuli. Appropriate response is noted. The patient was not disturbed due to her sound sleep. VITAL SIGNS: Blood pressure 113/80, mean arterial pressure of 91, respiratory rate 18, temperature 98.8, pulse rate 110. The patient is scheduled to have bone marrow studies today for her hematological problem. Her bone marrow was reported as degenerative changes and likely to be compressed deformity and old fracture at the T9 vertebra. Lumbosacral spine reported as no acute fractures, minimal anterior subluxation at L4-L5, degenerative changes and spondylosis over L3-L4 region with bilateral canal stenosis. From a neurological point of view, continue the present management. No further workup is needed at this point. The patient will be continuously observed during the hospitalization. Phuc Peres MD
--- NOTE | 2018-03-24 23:58 | CP.PCM.PN ---
Subjective - Date & Time of Evaluation Date of Evaluation: 03/23/18 Time of Evaluation: 09:30 Objective - Vital Signs/Intake and Output Vital Signs (last 24 hours): Temp Pulse Resp BP Pulse Ox 98 F 92 H 17 102/64 100 03/24/18 20:00 03/24/18 20:00 03/24/18 20:00 03/24/18 20:00 03/24/18 20:00 Intake and Output: 03/24/18 03/25/18 18:59 06:59 Intake Total 590 Output Total 1100 Balance -510 - Medications Medications: Current Medications Diltiazem HCl (Cardizem) 30 mg PO Q8H [facility] Last Admin: 03/24/18 20:25 Dose: 30 mg Diphenhydramine HCl (Benadryl) 25 mg PO HS PRN PRN Reason: Sleep Last Admin: 03/24/18 20:25 Dose: 25 mg Docusate Sodium (Colace) 100 mg PO TID [facility] Last Admin: 03/24/18 17:22 Dose: 100 mg Levothyroxine Sodium (Synthroid) 25 mcg PO Q24H [facility] Last Admin: 03/24/18 06:29 Dose: 25 mcg Metoprolol Succinate (Toprol Xl) 100 mg PO DAILY [facility] Last Admin: 03/24/18 10:06 Dose: 100 mg Pantoprazole Sodium (Protonix Inj) 40 mg IVP Q12H [facility] Last Admin: 03/24/18 13:16 Dose: 40 mg - Labs Labs: 03/24/18 07:10 03/24/18 07:10 PT 14.5 SECONDS (9.7-12.2) H 03/20/18 06:50 INR 1.3 03/20/18 06:50 APTT 37 SECONDS (21-34) H 03/18/18 12:57
--- NOTE | 2018-03-25 | CP.PCM.PN ---
Subjective - Date & Time of Evaluation Date of Evaluation: 03/24/18 Time of Evaluation: 14:05 Objective - Vital Signs/Intake and Output Vital Signs (last 24 hours): Temp Pulse Resp BP Pulse Ox 98 F 92 H 17 102/64 100 03/24/18 20:00 03/24/18 20:00 03/24/18 20:00 03/24/18 20:00 03/24/18 20:00 Intake and Output: 03/24/18 03/25/18 18:59 06:59 Intake Total 590 Output Total 1100 Balance -510 - Medications Medications: Current Medications Diltiazem HCl (Cardizem) 30 mg PO Q8H [facility] Last Admin: 03/24/18 20:25 Dose: 30 mg Diphenhydramine HCl (Benadryl) 25 mg PO HS PRN PRN Reason: Sleep Last Admin: 03/24/18 20:25 Dose: 25 mg Docusate Sodium (Colace) 100 mg PO TID [facility] Last Admin: 03/24/18 17:22 Dose: 100 mg Levothyroxine Sodium (Synthroid) 25 mcg PO Q24H [facility] Last Admin: 03/24/18 06:29 Dose: 25 mcg Metoprolol Succinate (Toprol Xl) 100 mg PO DAILY [facility] Last Admin: 03/24/18 10:06 Dose: 100 mg Pantoprazole Sodium (Protonix Inj) 40 mg IVP Q12H [facility] Last Admin: 03/24/18 13:16 Dose: 40 mg - Labs Labs: 03/24/18 07:10 03/24/18 07:10 PT 14.5 SECONDS (9.7-12.2) H 03/20/18 06:50 INR 1.3 03/20/18 06:50 APTT 37 SECONDS (21-34) H 03/18/18 12:57
[2018-03-25] MEDS: Levothyroxine 25 MCG TAB PO SCH (05:42)
[2018-03-25 06:39] LABS: ALB/GLOB RATIO 1.1 (1.0-2.1); ALBUMIN 3.2 g/dL (3.5-5.0); ALT/SGPT 133 U/L (9-52); AST/SGOT 114 U/L (14-36); BASO % 0.7 % (0.0-2.0); BLOOD UREA NITROGEN 19 mg/dL (7-17); CALCIUM 8.8 mg/dl (8.6-10.4); EOS # 0.2 K/uL (0.0-0.7); EOS % 4.1 % (0.0-4.0); GFR AFRICAN-AMERICAN > 60; GFR NON-AFRICAN AMERICAN 59; HEMOGLOBIN 9.8 g/dL (11.0-16.0); LYMPH # 0.5 K/uL (1.0-4.3); LYMPH % 11.4 % (20.0-40.0); MEAN CELL VOLUME 81.8 fL (81.0-99.0); MEAN CORPUSCULAR HEMOGLOBIN 26.8 pg (27.0-31.0); MEAN CORPUSCULAR HGB CONC 32.7 g/dL (33.0-37.0); MEAN PLATELET VOLUME 8.7 fL (7.2-11.7); MONO # 0.7 K/uL (0.0-0.8); MONO % 18.1 % (0.0-10.0); NEUT # 2.7 K/uL (1.8-7.0); NEUT % 65.7 % (50.0-75.0); NRBC % 0.1 % (0.0-2.0); RBC 3.67 Mil/uL (3.80-5.20); RED CELL DISTRIBUTION WIDTH 17.5 % (11.5-14.5)
[2018-03-25 08:33] VITALS: O2SAT 95
--- NOTE | 2018-03-25 11:15 | CP.PCM.PN ---
Subjective - Date & Time of Evaluation Date of Evaluation: 03/25/18 Time of Evaluation: 11:12 - Subjective Subjective: F/u anemia and abnl LFTs S/P BM bx yesterday. Pancytopenic. Adenopathy. LFTs elevated since admission Weak, fair appetite. No GI bleeding noted. On IV PPI for gastritis Objective - Vital Signs/Intake and Output Vital Signs (last 24 hours): Temp Pulse Resp BP Pulse Ox 97.4 F L 107 H 20 109/57 L 95 03/25/18 08:00 03/25/18 08:00 03/25/18 08:00 03/25/18 08:00 03/25/18 08:00 Intake and Output: 03/25/18 03/25/18 06:59 18:59 Intake Total 100 Output Total 500 Balance -400 - Medications Medications: Current Medications Diltiazem HCl (Cardizem) 30 mg PO Q8H [facility] Last Admin: 03/25/18 04:16 Dose: 30 mg Diphenhydramine HCl (Benadryl) 25 mg PO HS PRN PRN Reason: Sleep Last Admin: 03/24/18 20:25 Dose: 25 mg Docusate Sodium (Colace) 100 mg PO TID [facility] Last Admin: 03/24/18 17:22 Dose: 100 mg Levothyroxine Sodium (Synthroid) 25 mcg PO Q24H [facility] Last Admin: 03/25/18 05:42 Dose: 25 mcg Metoprolol Succinate (Toprol Xl) 100 mg PO DAILY [facility] Last Admin: 03/24/18 10:06 Dose: 100 mg Pantoprazole Sodium (Protonix Inj) 40 mg IVP Q12H [facility] Last Admin: 03/25/18 01:12 Dose: 40 mg - Labs Labs: 03/25/18 06:19 03/25/18 06:19 PT 14.5 SECONDS (9.7-12.2) H 03/20/18 06:50 INR 1.3 03/20/18 06:50 APTT 37 SECONDS (21-34) H 03/18/18 12:57 Assessment and Plan (1) Coagulopathy Status: Acute (2) Severe anemia Assessment & Plan: 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 Awaiting BM bx results Status: Acute (3) Afib Status: Acute (4) Aortic valve disease Status: Acute (5) Duodenal ulcer Assessment & Plan: Stable. No active bleeding. May change attendant to PO Protonix, and restart ELiquis under careful observation. Discussed with medical attending Dr Pittman Status: Acute (6) Elevated liver enzymes Assessment & Plan: Discussed with medical attending. Probably drug related (Amiodarone) vs Congestive hepatopathy vs. underlying Hematologic malignancy Pt currently off Amiodarone. LFTs will need to be monitored as out patient Status: Acute
[2018-03-25] MEDS: Metoprolol Succinate 100 mg XL Tab PO SCH (11:48)
--- NOTE | 2018-03-25 12:54 | CP.PCM.PN ---
Subjective - Date & Time of Evaluation Date of Evaluation: 03/25/18 Time of Evaluation: 12:49 - Subjective Subjective: Medicine progress note for Dr. Pittman (Hospitalist covering for Dr. Hassan) Patient was seen and examined at bedside in no acute distress. Patient complains of pain on her left hip s/p bone marrow biopsy and says it kept her up all night. Patient denies chest pain, abdominal pain, dyspnea, nausea, vomiting, fevers, headaches, dysuria, constipation, and diarrhea. Objective - Vital Signs/Intake and Output Vital Signs (last 24 hours): Temp Pulse Resp BP Pulse Ox 96.7 F L 98 H 20 123/69 95 03/25/18 12:00 03/25/18 12:00 03/25/18 12:00 03/25/18 12:00 03/25/18 12:00 Intake and Output: 03/25/18 03/25/18 06:59 18:59 Intake Total 100 480 Output Total 500 500 Balance -400 -20 - Medications Medications: Current Medications Apixaban (Eliquis) 2.5 mg PO BID [facility] Diltiazem HCl (Cardizem) 30 mg PO Q8H [facility] Last Admin: 03/25/18 11:48 Dose: 30 mg Diphenhydramine HCl (Benadryl) 25 mg PO HS PRN PRN Reason: Sleep Last Admin: 03/24/18 20:25 Dose: 25 mg Diphenhydramine HCl (Benadryl) 12.5 mg PO ONCE ONE Stop: 03/25/18 22:01 Docusate Sodium (Colace) 100 mg PO TID [facility] Last Admin: 03/25/18 11:48 Dose: 100 mg Levothyroxine Sodium (Synthroid) 25 mcg PO Q24H [facility] Last Admin: 03/25/18 05:42 Dose: 25 mcg Metoprolol Succinate (Toprol Xl) 100 mg PO DAILY [facility] Last Admin: 03/25/18 11:48 Dose: 100 mg Pantoprazole Sodium (Protonix Ec Tab) 40 mg PO DAILY [facility] - Labs Labs: 03/25/18 06:19 03/25/18 06:19 PT 14.5 SECONDS (9.7-12.2) H 03/20/18 06:50 INR 1.3 03/20/18 06:50 APTT 37 SECONDS (21-34) H 03/18/18 12:57 - Additional Findings Additional findings: - Constitutional Appears: No Acute Distress - Head Exam Head Exam: ATRAUMATIC, NORMAL INSPECTION - Eye Exam Eye Exam: EOMI, Normal appearance - ENT Exam ENT Exam: Mucous Membranes Moist - Respiratory Exam Respiratory Exam: Decreased Breath Sounds, Rales (b/l), NORMAL BREATHING PATTERN. absent: Respiratory Distress - Cardiovascular Exam Cardiovascular Exam: Irregular Rhythm, +S1, +S2 Additional comments: pacemaker- left chest - GI/Abdominal Exam GI & Abdominal Exam: Soft, Normal Bowel Sounds. absent: Distended, Tenderness - Extremities Exam Extremities Exam: +hematoma of left hip. absent: Pedal Edema, Tenderness - Neurological Exam Neurological Exam: Alert, Awake, Oriented x3 - Psychiatric Exam Psychiatric exam: Normal Affect, Normal Mood - Skin Skin Exam: Dry, Intact, Normal Color, Warm Assessment and Plan - Assessment and Plan (Free Text) Plan: (1) Status post fall Assessment & Plan: Patient came in status post fall. patient previously on anticoagulation including Eliquis and Aspirin which was held on admission. Imaging completed on admission: * Elbow xray (03/18/18): no acute fracture or dislocation. Moderate soft tissue edema overlies the olecranon process * Femur xray (03/18/18); no acute fracture or dislocation. No destructive bony lesion evidence. 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 * Head CT (03/18/18): no intracranial mass, hemorrhage, or evidence of acute infarct. Age-appropriate involutional changes. * Hip Xray (03/18/18): no acute fracture or dislocation left hip joint. Pelvic ring is intact including pubic symphysis. 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 * Knee xray (03/18/18): no acute fracture or dislocation. Advanced osteoarthritis. Patient has vertebral compression fracture noted on CT abdomen/pelvis Lumbar CT ordered by neurology- no acute compression fracture no retropulsed fragments; minimal anterior subluxation L4-L5; multilevel degenerative spondylosis most significantly affecting L3-4 level where there is assessed fairly significant b/l lateral recess and central canal stenosis. Brain MRI held since patient has a pacemaker. Patient was previously ordered for brain MRI. MRI cancelled because She has a pacemaker- unclear if MRI safe. Nursing communication also placed as well as safety precaution to inform neurology (2) Anemia Assessment & Plan: Review of record: Patient was admitted to ICU. GI (Dr. Lord) on the case-->help appreciated Heme-Oncology (Dr. Rohan Collins) on the case--->help appreciated Patient came in status post fall. patient previously on anticoagulation including Eliquis and Aspirin which was held on admission. Patient required blood products during admission. Patient completed CT abdomen/Pelvis on 03/18/18---> hepatosplenomegaly with adenopathy in this patient with anemia suggest possibility of hematologic malignancy, bilateral low density renal lesions, scattered colonic diverticula, compression fracture at T9 with 70 percent loss of height of vertebral body. Low density lesions noted within the spleen could represent splenic infarcts. 2mm nodule in the right middle lobe. Patient completed EGD 03/19 with findings: non-bleeding esophageal ulcer, non- bleeding duodenal ulcer with no stigmata of bleeding * Recommend PPI BID, check Hgb, advance diet Patient is undergoing hematological workup. * Patient also has elevated liver enzymes, LDH elevation noted, low platelets and low WBC noted, CAT scan of the abdomen showing lymphadenopathy changes, mild hepatosplenomegaly also noted, underlying malignancy, hematological malignancy cannot be ruled out. (3) Atrial fibrillation Assessment & Plan: Cardiology (Dr. Gaitan) on the case-->help appreciated Patient came in status post fall. patient previously on anticoagulation including Eliquis and Aspirin which was held on admission. Eliquis 2.5mg PO daily (restarted on 03/25) Discontinue Amiodarone given elevated LFTs Lower Cardizem 30mg POq8H-->patient is hypotensive today Toprol XL 100mg PO daily (4) CAD (coronary artery disease) Assessment & Plan: Cardiology (Dr. 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 Lawrence) on the case-->help appreciated monitor BUN/Cr (8) Pancytopenia Assessment & Plan: Hematology-oncology (Dr. Rohan Collins) on the case-->help appreciated Patient came in with low hemoglobin while on anticoagulation Patient required multiple blood products retic count, b12, folate - wnl mild tbili elevation; will fractionate bilirubin, LDH, haptoglobin ? hemolysis ferritin elevated; anemia of chronic disease FOBT negative platelet count was normal on admission; cont. to monitor ? medication related mild leukopenia, no neutropenia * Patient s/p bone marrow biopsy with Dr. Rohan Collins, follow up results. (9) Transaminitis Assessment & Plan: to check CMV titre due to leukopenia, increased LFTs Patient is off amiodarone given LFTs discontinue tylenol given LFTs Patient completed CT abdomen/Pelvis on 03/18/18---> hepatosplenomegaly with adenopathy in this patient with anemia suggest possibility of hematologic malignancy, bilateral low density renal lesions, scattered colonic diverticula, compression fracture at T9 with 70 percent loss of height of vertebral body. Low density lesions noted within the spleen could represent splenic infarcts. 2mm nodule in the right middle lobe. (10) Abnormal chest xray Assessment & Plan: noted chest xray 03/21 will order for mycoplasma IGM, legionella, and strep and procalcitonin Patient does not present clinically as pneumonia (11) PACO (cauda equina syndrome) Assessment & Plan: Neurology (Dr. Peres) on the case help appreciated noted neuropathy b/l Lumbar CT ordered by neurology- no acute compression fracture no retropulsed fragments; minimal anterior subluxation L4-L5; multilevel degenerative spondylosis most significantly affecting L3-4 level where there is assessed fairly significant b/l lateral recess and central canal stenosis. Brain MRI held since patient has a pacemaker. EEG - r/o focal slowing or paroxysmal activity Fall precaution (12) Vertebral compression fracture Assessment & Plan: Patient completed CT abdomen/Pelvis on 03/18/18---> hepatosplenomegaly with adenopathy in this patient with anemia suggest possibility of hematologic malignancy, bilateral low density renal lesions, scattered colonic diverticula, compression fracture at T9 with 70 percent loss of height of vertebral body. Low density lesions noted within the spleen could represent splenic infarcts. 2mm nodule in the right middle lobe. Lumbar CT ordered by neurology- no acute compression fracture no retropulsed fragments; minimal anterior subluxation L4-L5; multilevel degenerative spondylosis most significantly affecting L3-4 level where there is assessed fairly significant b/l lateral recess and central canal stenosis. Brain MRI held since patient has a pacemaker. (13) Prophylactic measure Assessment & Plan: Protonix 40mg IV q bid Eliquis 2.5mg PO daily (restarted on 03/25) Fall precautions PT/OT Wedge/Ice packs to reduce pain in left hip Case management/social consulted for discharge plans. Disposition: Patient s/p bone marrow biopsy with Dr. Rohan Collins, follow up results. [facility].
--- NOTE | 2018-03-25 12:57 | CP.PCM.PN ---
Subjective - Date & Time of Evaluation Date of Evaluation: 03/25/18 Time of Evaluation: 12:55 - Subjective Subjective: s/p BM bx- awaiting results renal function stable, lytes acceptable LFTs elevated still UO excellent HTN controlled same complaints- mostly lethargy Objective - Vital Signs/Intake and Output Vital Signs (last 24 hours): Temp Pulse Resp BP Pulse Ox 96.7 F L 98 H 20 123/69 95 03/25/18 12:00 03/25/18 12:00 03/25/18 12:00 03/25/18 12:00 03/25/18 12:00 Intake and Output: 03/25/18 03/25/18 06:59 18:59 Intake Total 100 480 Output Total 500 500 Balance -400 -20 - Medications Medications: Current Medications Apixaban (Eliquis) 2.5 mg PO BID [facility] Diltiazem HCl (Cardizem) 30 mg PO Q8H [facility] Last Admin: 03/25/18 11:48 Dose: 30 mg Diphenhydramine HCl (Benadryl) 25 mg PO HS PRN PRN Reason: Sleep Last Admin: 03/24/18 20:25 Dose: 25 mg Diphenhydramine HCl (Benadryl) 12.5 mg PO ONCE ONE Stop: 03/25/18 22:01 Docusate Sodium (Colace) 100 mg PO TID [facility] Last Admin: 03/25/18 11:48 Dose: 100 mg Levothyroxine Sodium (Synthroid) 25 mcg PO Q24H [facility] Last Admin: 03/25/18 05:42 Dose: 25 mcg Metoprolol Succinate (Toprol Xl) 100 mg PO DAILY [facility] Last Admin: 03/25/18 11:48 Dose: 100 mg Pantoprazole Sodium (Protonix Ec Tab) 40 mg PO DAILY [facility] - Labs Labs: 03/25/18 06:19 03/25/18 06:19 PT 14.5 SECONDS (9.7-12.2) H 03/20/18 06:50 INR 1.3 03/20/18 06:50 APTT 37 SECONDS (21-34) H 03/18/18 12:57 - Constitutional Appears: No Acute Distress, Chronically Ill - Head Exam Head Exam: ATRAUMATIC, NORMAL INSPECTION - Eye Exam Eye Exam: EOMI, Normal appearance - Neck Exam Neck Exam: Normal Inspection. absent: Tenderness - Respiratory Exam Respiratory Exam: Clear to Ausculation Bilateral, NORMAL BREATHING PATTERN - Cardiovascular Exam Cardiovascular Exam: REGULAR RHYTHM, +S1 - GI/Abdominal Exam GI & Abdominal Exam: Soft. absent: Tenderness - Extremities Exam Extremities Exam: Normal Inspection. absent: Tenderness - Neurological Exam Neurological Exam: Awake, CN II-XII Intact - Skin Skin Exam: Dry, Warm Assessment and Plan (1) Fall (on) (from) other stairs and steps, sequela Status: Acute (2) HTN (hypertension) Status: Acute (3) Atrial fibrillation Status: Chronic (4) GI bleed Status: Acute (5) CKD (chronic kidney disease) stage 3, GFR 30-59 ml/min Status: Acute (6) Pancytopenia Status: Acute - Assessment and Plan (Free Text) Plan: will continue to monitor lytes, renal function await BM bx results
[2018-03-25] MEDS: Hydrocortisone 1% Cream (30 GM) TOP SCH (17:52)
--- NOTE | 2018-03-25 21:27 | CP.PCM.PN ---
Subjective - Date & Time of Evaluation Date of Evaluation: 03/25/18 Time of Evaluation: 18:10 - Subjective Subjective: Has pain at BM bx site. Objective - Vital Signs/Intake and Output Vital Signs (last 24 hours): Temp Pulse Resp BP Pulse Ox 97.2 F L 89 22 98/68 L 95 03/25/18 20:00 03/25/18 20:00 03/25/18 20:00 03/25/18 20:00 03/25/18 12:00 Intake and Output: 03/25/18 03/26/18 18:59 06:59 Intake Total 1080 Output Total 700 Balance 380 - Medications Medications: Current Medications Apixaban (Eliquis) 2.5 mg PO BID [facility] Last Admin: 03/25/18 17:06 Dose: 2.5 mg Diltiazem HCl (Cardizem) 30 mg PO Q8H [facility] Last Admin: 03/25/18 21:10 Dose: 30 mg Diphenhydramine HCl (Benadryl) 25 mg PO HS PRN PRN Reason: Sleep Last Admin: 03/25/18 20:46 Dose: 25 mg Diphenhydramine HCl (Benadryl) 12.5 mg PO ONCE ONE Stop: 03/25/18 22:01 Last Admin: 03/25/18 21:10 Dose: Not Given Docusate Sodium (Colace) 100 mg PO TID [facility] Last Admin: 03/25/18 17:06 Dose: 100 mg Hydrocortisone (Cortizone 1% Cream) 0 gm TOP BID [facility] Last Admin: 03/25/18 17:52 Dose: 1 applic Levothyroxine Sodium (Synthroid) 25 mcg PO Q24H [facility] Last Admin: 03/25/18 05:42 Dose: 25 mcg Metoprolol Succinate (Toprol Xl) 100 mg PO DAILY [facility] Last Admin: 03/25/18 11:48 Dose: 100 mg Pantoprazole Sodium (Protonix Ec Tab) 40 mg PO DAILY [facility] - Labs Labs: 03/25/18 06:19 03/25/18 06:19 PT 14.5 SECONDS (9.7-12.2) H 03/20/18 06:50 INR 1.3 03/20/18 06:50 APTT 37 SECONDS (21-34) H 03/18/18 12:57 - Head Exam Head Exam: ATRAUMATIC - Eye Exam Eye Exam: Normal appearance - ENT Exam ENT Exam: Mucous Membranes Dry - Respiratory Exam Respiratory Exam: NORMAL BREATHING PATTERN - Cardiovascular Exam Cardiovascular Exam: +S1, +S2 - GI/Abdominal Exam GI & Abdominal Exam: Normal Bowel Sounds Assessment and Plan (1) Pancytopenia Assessment & Plan: s/p bone marrow biopsy results pending Status: Acute
[2018-03-25] MEDS ORDERED: DiphenhydrAMINE 12.5 mg/5 ml LIQ UD (5 ml) PO ONE (22:00)
--- NOTE | 2018-03-25 22:57 | CP.PCM.PN ---
Subjective - Date & Time of Evaluation Date of Evaluation: 03/25/18 Time of Evaluation: 11:05 - Subjective Subjective: Patient seen and evaluated denies chest pain and dyspnea Awaiting Biosy result Objective - Vital Signs/Intake and Output Vital Signs (last 24 hours): Temp Pulse Resp BP Pulse Ox 97.2 F L 89 22 98/68 L 95 03/25/18 20:00 03/25/18 20:00 03/25/18 20:00 03/25/18 20:00 03/25/18 12:00 Intake and Output: 03/25/18 03/26/18 18:59 06:59 Intake Total 1080 Output Total 700 Balance 380 - Medications Medications: Current Medications Apixaban (Eliquis) 2.5 mg PO BID [facility] Last Admin: 03/25/18 17:06 Dose: 2.5 mg Diltiazem HCl (Cardizem) 30 mg PO Q8H [facility] Last Admin: 03/25/18 21:10 Dose: 30 mg Diphenhydramine HCl (Benadryl) 25 mg PO HS PRN PRN Reason: Sleep Last Admin: 03/25/18 20:46 Dose: 25 mg Docusate Sodium (Colace) 100 mg PO TID [facility] Last Admin: 03/25/18 17:06 Dose: 100 mg Hydrocortisone (Cortizone 1% Cream) 0 gm TOP BID [facility] Last Admin: 03/25/18 17:52 Dose: 1 applic Levothyroxine Sodium (Synthroid) 25 mcg PO Q24H [facility] Last Admin: 03/25/18 05:42 Dose: 25 mcg Metoprolol Succinate (Toprol Xl) 100 mg PO DAILY [facility] Last Admin: 03/25/18 11:48 Dose: 100 mg Pantoprazole Sodium (Protonix Ec Tab) 40 mg PO DAILY [facility] - Labs Labs: 03/25/18 06:19 03/25/18 06:19 PT 14.5 SECONDS (9.7-12.2) H 03/20/18 06:50 INR 1.3 03/20/18 06:50 APTT 37 SECONDS (21-34) H 03/18/18 12:57
[2018-03-26 06:24] LABS: BASO % 0.5 % (0.0-2.0); EOS # 0.1 K/uL (0.0-0.7); EOS % 3.5 % (0.0-4.0); LYMPH # 0.4 K/uL (1.0-4.3); MEAN CELL VOLUME 81.4 fL (81.0-99.0); MEAN CORPUSCULAR HEMOGLOBIN 26.8 pg (27.0-31.0); MEAN CORPUSCULAR HGB CONC 32.9 g/dL (33.0-37.0); MEAN PLATELET VOLUME 8.7 fL (7.2-11.7); MONO # 0.6 K/uL (0.0-0.8); MONO % 15.8 % (0.0-10.0); NEUT # 2.6 K/uL (1.8-7.0); NEUT % 69.2 % (50.0-75.0); NRBC % 0.2 % (0.0-2.0); RBC 3.72 Mil/uL (3.80-5.20); RED CELL DISTRIBUTION WIDTH 17.2 % (11.5-14.5); WHITE BLOOD COUNT 3.7 K/uL (4.8-10.8)
[2018-03-26 06:39] LABS: ALT/SGPT 118 U/L (9-52); AST/SGOT 90 U/L (14-36); BLOOD UREA NITROGEN 18 mg/dL (7-17); CALCIUM 8.6 mg/dl (8.6-10.4); GFR AFRICAN-AMERICAN > 60; GFR NON-AFRICAN AMERICAN 59
[2018-03-26] MEDS: Levothyroxine 25 MCG TAB PO SCH (07:02)
--- NOTE | 2018-03-26 08:31 | CP.PCM.DIS ---
<WilfredotoniEstela W. - Last Filed: 03/26/18 15:06> Provider - Provider Date of Admission: 03/18/18 13:25 Attending physician: Gustabo Hassan MD Primary care physician: Dr. Hassan Consults: Cardiology: Dr. Gaitan GI: Dr. Mancini Onc: Dr. Collins Nephro: Dr. Lawrence Neuro: Dr. Peres Time Spent in preparation of Discharge (in minutes): 45 Hospital Course - Lab Results Lab Results: Micro Results 03/18/18 15:34 Naris MRSA Culture (Admit) - Final MRSA NOT DETECTED Most Recent Lab Values WBC 3.7 K/uL (4.8-10.8) L 03/26/18 06:18 RBC 3.72 Mil/uL (3.80-5.20) L 03/26/18 06:18 Hgb 10.0 g/dL (11.0-16.0) L 03/26/18 06:18 Hct 30.3 % (34.0-47.0) L 03/26/18 06:18 MCV 81.4 fL (81.0-99.0) 03/26/18 06:18 MCH 26.8 pg (27.0-31.0) L 03/26/18 06:18 MCHC 32.9 g/dL (33.0-37.0) L 03/26/18 06:18 RDW 17.2 % (11.5-14.5) H 03/26/18 06:18 Plt Count 99 K/uL (130-400) L 03/26/18 06:18 MPV 8.7 fL (7.2-11.7) 03/26/18 06:18 Neut % (Auto) 69.2 % (50.0-75.0) 03/26/18 06:18 Lymph % (Auto) 11.0 % (20.0-40.0) L 03/26/18 06:18 Elbert % (Auto) 15.8 % (0.0-10.0) H 03/26/18 06:18 Eos % (Auto) 3.5 % (0.0-4.0) 03/26/18 06:18 Baso % (Auto) 0.5 % (0.0-2.0) 03/26/18 06:18 Neut # (Auto) 2.6 K/uL (1.8-7.0) 03/26/18 06:18 Lymph # (Auto) 0.4 K/uL (1.0-4.3) L 03/26/18 06:18 Elbert # (Auto) 0.6 K/uL (0.0-0.8) 03/26/18 06:18 Eos # (Auto) 0.1 K/uL (0.0-0.7) 03/26/18 06:18 Baso # (Auto) 0.0 K/uL (0.0-0.2) 03/26/18 06:18 Neutrophils % (Manual) 67 % (50-75) 03/19/18 06:33 Band Neutrophils % 6 % (0-2) H 03/19/18 06:33 Lymphocytes % (Manual) 10 % (20-40) L 03/19/18 06:33 Reactive Lymphs % 1 % (0-0) H 03/19/18 06:33 Monocytes % (Manual) 15 % (0-10) H 03/19/18 06:33 Eosinophils % (Manual) 1 % (0-4) 03/19/18 06:33 Platelet Estimate Decreased (NORMAL) L 03/19/18 06:33 Hypochromasia (manual) Slight 03/19/18 06:33 Anisocytosis (manual) Slight 03/19/18 06:33 Retic Count 1.2 % (0.5-1.5) 03/20/18 06:39 Haptoglobin 355.5 mg/dL (30.0-200.0) H 03/20/18 06:40 PT 14.5 SECONDS (9.7-12.2) H 03/20/18 06:50 INR 1.3 03/20/18 06:50 APTT 37 SECONDS (21-34) H 03/18/18 12:57 Plt Function Assay 49 K/uL 03/19/18 06:33 Puncture Site Rb 03/19/18 04:40 pCO2 37 mm/Hg (35-45) 03/19/18 04:40 pO2 83 mm/Hg (80-100) 03/19/18 04:40 HCO3 26.8 mmol/L (21-28) 03/19/18 04:40 ABG pH 7.46 (7.35-7.45) H 03/19/18 04:40 ABG Total CO2 27.4 mmol/L (22-28) 03/19/18 04:40 ABG O2 Saturation 98.0 % (95-98) 03/19/18 04:40 ABG Base Excess 2.4 mmol/L (-2.0-3.0) 03/19/18 04:40 ABG Hemoglobin 10.0 g/dL (11.7-17.4) L 03/19/18 04:40 ABG Carboxyhemoglobin 2.0 % (0.5-1.5) H 03/19/18 04:40 POC ABG HHb (Measured) 1.9 % (0.0-5.0) 03/19/18 04:40 ABG Methemoglobin 0.9 % (0.0-3.0) 03/19/18 04:40 Gregory Test Na 03/19/18 04:40 ABG Potassium 4.2 mmol/L (3.6-5.2) 03/18/18 17:15 A-a O2 Difference 99.0 mm/Hg 03/19/18 04:40 Respiratory Index 1.2 03/19/18 04:40 Hgb O2 Saturation 95.2 % (95.0-98.0) 03/19/18 04:40 Sodium 130.0 mmol/l (132-148) L 03/18/18 17:15 Chloride 100.0 mmol/L (98-107) 03/18/18 17:15 Glucose 122 mg/dl (65-105) H 03/18/18 17:15 Lactate 1.4 mmol/L (0.7-2.1) 03/18/18 17:15 Liter Flow 3.0 03/19/18 04:40 FiO2 32.0 % 03/19/18 04:40 Sodium 138 mmol/L (132-148) 03/26/18 06:19 Potassium 4.5 mmol/L (3.6-5.2) 03/26/18 06:19 Chloride 99 mmol/L (98-107) 03/26/18 06:19 Carbon Dioxide 29 mmol/L (22-30) 03/26/18 06:19 Anion Gap 14 (10-20) 03/26/18 06:19 BUN 18 mg/dL (7-17) H 03/26/18 06:19 Creatinine 0.9 mg/dL (0.7-1.2) 03/26/18 06:19 Est GFR ( Amer) > 60 03/26/18 06:19 Est GFR (Non-Af Amer) 59 03/26/18 06:19 POC Glucose (mg/dL) 142 mg/dL (65-110) H 03/18/18 10:59 Random Glucose 101 mg/dL (65-105) 03/26/18 06:19 Calcium 8.6 mg/dl (8.6-10.4) 03/26/18 06:19 Ionized Calcium 5.8 mg/dL (4.80-5.60) H 03/22/18 18:15 Phosphorus 3.8 mg/dL (2.5-4.5) 03/23/18 06:23 Magnesium 1.7 mg/dL (1.6-2.3) 03/23/18 06:23 Iron 53 ug/dL (37-170) 03/18/18 17:35 TIBC 198 ug/dL (250-450) L 03/18/18 17:35 % Saturation 27 (20-55) 03/18/18 17:35 Ferritin 1080.0 ng/mL 03/18/18 17:35 Total Bilirubin 0.9 mg/dL (0.2-1.3) 03/26/18 06:19 AST 90 U/L (14-36) H D 03/26/18 06:19 ALT 118 U/L (9-52) H 03/26/18 06:19 Alkaline Phosphatase 341 U/L (38-126) H 03/26/18 06:19 Ammonia < 9 umol/L (9-33) L 03/22/18 15:00 Lactate Dehydrogenase 1009 U/L (313-618) H 03/20/18 06:40 Total Protein 5.8 g/dL (6.3-8.3) L 03/26/18 06:19 Total Protein (PEP) 5.5 g/dL (6.1-8.1) L 03/22/18 06:35 Albumin 3.0 g/dL (3.5-5.0) L 03/26/18 06:19 Albumin (PEP) 2.6 g/dL (3.8-4.8) L 03/22/18 06:35 Globulin 2.9 gm/dL (2.2-3.9) 03/26/18 06:19 Albumin/Globulin Ratio 1.0 (1.0-2.1) 03/26/18 06:19 Vmqku-9-Weyrwkqhi 0.6 g/dL (0.2-0.3) H 03/22/18 06:35 Fuhbt-7-Lhnclatcj 1.0 g/dL (0.5-0.9) H 03/22/18 06:35 Nmgs-6-Frhoshmt 0.3 g/dL (0.4-0.6) L 03/22/18 06:35 Iwgc-2-Rpttlaho 0.3 g/dL (0.2-0.5) 03/22/18 06:35 Gamma Globulins 0.8 g/dL (0.8-1.7) 03/22/18 06:35 Abnorm Protein Band 1 TEST NOT PERFORMED 03/22/18 06:35 Abnorm Protein Band 2 TEST NOT PERFORMED 03/22/18 06:35 Abnorm Protein Band 3 TEST NOT PERFORMED 03/22/18 06:35 Triglycerides 192 mg/dL (0-149) H D 03/18/18 15:36 Cholesterol 113 mg/dL (0-199) 03/18/18 15:36 LDL Cholesterol Direct 56 mg/dL (0-129) 03/18/18 15:36 HDL Cholesterol 14 mg/dL (30-70) L 03/18/18 15:36 Carcinoembryonic Ag 4.7 ng/mL (0-3.0) H 03/22/18 15:00 Prostate Specific Ag < 0.064 ng/mL (0.00-4.0) 03/22/18 06:00 Vitamin B12 711 pg/mL (239-931) 03/20/18 06:40 Folate 13.7 ng/mL 03/20/18 06:40 Procalcitonin 0.39 NG/ML (0.19-0.49) 03/23/18 06:23 Free T4 2.31 ng/dL (0.78-2.19) H 03/19/18 10:22 TSH 3rd Generation 1.77 mIU/L (0.46-4.68) 03/19/18 06:33 Arterial Blood Potassium 4.2 mmol/L (3.6-5.2) 03/18/18 17:15 Stool Occult Blood Negative (NEGATIVE) 03/19/18 06:14 KAYLYNN & SPEP Interp See note 03/22/18 06:35 Serum Immunofixation Not detected (Not Detected) 03/22/18 18:15 Hepatitis A IgM Ab Negative (NEGATIVE) 03/23/18 15:20 Hep Bs Antigen Negative (NEGATIVE) 03/23/18 15:20 Hep B Core IgM Ab Negative (NEGATIVE) 03/23/18 15:20 Hepatitis C Antibody Negative (NEGATIVE) 03/23/18 15:20 HIV-1 RNA copies/mL <20 not detected copies/mL (Not Detected) 03/23/18 06: 28 HIV-1 RNA logcopies/mL <1.30 not detected (Not Detected) 03/23/18 06:28 HIV-1 Genotyping (()) 03/23/18 06:28 HIV 1&2 Ag/Ab, 4th Gen Nonreactive (Nonreactive) 03/24/18 07:10 Ur L.pneumophila Ag Negative (NEGATIVE) 03/23/18 10:03 Mycoplasma pneumon IgM Negative (NEGATIVE) 03/23/18 06:23 Blood Type O POSITIVE 03/18/18 11:38 Blood Type Confirm O POSITIVE 03/18/18 11:38 Antibody Screen Negative 03/18/18 11:38 - Hospital Course Hospital Course: HPI: 87-year-old female with a history of atrial fibrillation, CAD, hypertension ,TAVR *2, on anticoagulation came to the emergency room today because of the weakness. Patient was trying to get up, was not able to walk she was feeling weakness yesterday, last night also she was having increasing tiredness, fatigue. Today she felt very weak, unable to get up, she slide down and slipped and fell in the bathroom, over the left side of the body. Patient has a bruise over the left elbow, left hip area. In the emergency room patient was evaluated, extensive x-rays was done, no evidence of fracture noted. Patient now having increasing weakness, tiredness, easy fatigue already, shortness of breath. No chest pain noted. Dizziness present. Hospital course: Patient was admitted on 03/18/18 for anemia and s/p fall. In the ED, labs, EKG, xrays, and an abdomen and head CT were done. Chest xray showed mild CHF; EKG showed atrial fibrillation with rvr. On labs, patient was found to have a hemoglobin 6.8. Patient was transferred to the ICU, given transfusion and anticoagulation was discontinued. Xrays of the elbow, femur, hip , and knee were ordered and were negative for fracture/dislocation. Head CT was negative for intracranial mass, hemorrhage, or evidence of acute infarct. Abdomen CT showed evidence of vertebral compression fracture and lymphadenopathy. Lumbar CT was ordered and showed no acute changes; spondylosis affecting L3-4. Gastroenterology (Dr. Mancini), Cardiology (Dr. Gaitan), Hematology/Oncology (Dr. Collins), Nephrology (Dr. Lawrence), and Neurology (Dr. Peres) were consulted. Patient had an EGD with GI on 03/19/18 which showed non- bleeding esophageal ulcer, non-bleeding duodenal ulcer with no stigmata of bleeding. It was also noted on labs that the patient had elevated liver enzymes , elevated LDH, low WBC and low platelets. With these findings, pancytopenia, and the lymphadenopathy on CT, there was a concern for underlying malignancy. Patient had bone marrow biopsy with Dr. Collins on 03/24/18. Patient's home medication, Amiodarone, was discontinued due to elevated LFTs. Transaminitis improved, patient's afib was controlled, and anemia stabilized. Patient is stable for discharge to [facility]. Patient must follow up with Dr. Collins for biopsy results. Patient must follow up with PMD, Dr. Hassan, within 1-2 weeks of discharge. This is a brief summary of the hospital course. Please see EMR for more details. Discharge Exam - Additional Findings Additional findings: - Constitutional Appears: No Acute Distress - Head Exam Head Exam: ATRAUMATIC, NORMAL INSPECTION - Eye Exam Eye Exam: EOMI, Normal appearance - ENT Exam ENT Exam: Mucous Membranes Moist - Respiratory Exam Respiratory Exam: Decreased Breath Sounds, Rales (b/l), NORMAL BREATHING PATTERN. absent: Respiratory Distress - Cardiovascular Exam Cardiovascular Exam: Irregular Rhythm, +S1, +S2 Additional comments: pacemaker- left chest - GI/Abdominal Exam GI & Abdominal Exam: Soft, Normal Bowel Sounds. absent: Distended, Tenderness - Extremities Exam Extremities Exam: +hematoma of left hip. absent: Pedal Edema, Tenderness - Neurological Exam Neurological Exam: Alert, Awake, Oriented x3 - Psychiatric Exam Psychiatric exam: Normal Affect, Normal Mood - Skin Skin Exam: Dry, Intact, Normal Color, Warm Discharge Plan - Follow Up Plan Condition: STABLE Disposition: OTHER INSTITUTION Instructions: Cauda Equina Syndrome, Atrial Fibrillation (DC), Heart Failure, Adult (DC), High Blood Pressure (DC), Gastrointestinal Bleeding (DC), Low Salt Diet, Prosthetic Heart Valve (DC), Normocytic Normochromic Anemia (DC), Fall Prevention for Older Adults (GEN), Contusion in Adults (DC) Additional Instructions: Patient is stable for discharge to [facility] when bed available. Patient must continue the follow medications: 1. Eliquis 2.5mg PO BID 2. Cardizem 30mg PO Q8h 3. Benadryl 25mg PO HS PRN 4. Colace 100mg PO TID 5. Hydrocortisone cream TOP BID 6. Synthroid 25mcg PO Q24h 7. Metoprolol 100mg PO daily 8. Protonix 40mg PO Daily Patient must follow up with Dr. Collins within 1-2 weeks of discharge for biopsy results. Patient must follow up with PMD, Dr. Hassan, within 1-2 weeks of discharge. If symptoms worsen or reoccur, patient should return to the nearest ED. Referrals: Jose A Collins MD [Staff Provider] - Gustabo Hassan MD [Staff Provider] - <Jaycob Pittman - Last Filed: 03/26/18 22:28> Provider - Provider Date of Admission: 03/18/18 13:25 Attending physician: Gustabo Hassan MD Time Spent in preparation of Discharge (in minutes): 40 Hospital Course - Lab Results Lab Results: Micro Results 03/18/18 15:34 Naris MRSA Culture (Admit) - Final MRSA NOT DETECTED Most Recent Lab Values WBC 3.7 K/uL (4.8-10.8) L 03/26/18 06:18 RBC 3.72 Mil/uL (3.80-5.20) L 03/26/18 06:18 Hgb 10.0 g/dL (11.0-16.0) L 03/26/18 06:18 Hct 30.3 % (34.0-47.0) L 03/26/18 06:18 MCV 81.4 fL (81.0-99.0) 03/26/18 06:18 MCH 26.8 pg (27.0-31.0) L 03/26/18 06:18 MCHC 32.9 g/dL (33.0-37.0) L 03/26/18 06:18 RDW 17.2 % (11.5-14.5) H 03/26/18 06:18 Plt Count 99 K/uL (130-400) L 03/26/18 06:18 MPV 8.7 fL (7.2-11.7) 03/26/18 06:18 Neut % (Auto) 69.2 % (50.0-75.0) 03/26/18 06:18 Lymph % (Auto) 11.0 % (20.0-40.0) L 03/26/18 06:18 Elbert % (Auto) 15.8 % (0.0-10.0) H 03/26/18 06:18 Eos % (Auto) 3.5 % (0.0-4.0) 03/26/18 06:18 Baso % (Auto) 0.5 % (0.0-2.0) 03/26/18 06:18 Neut # (Auto) 2.6 K/uL (1.8-7.0) 03/26/18 06:18 Lymph # (Auto) 0.4 K/uL (1.0-4.3) L 03/26/18 06:18 Elbert # (Auto) 0.6 K/uL (0.0-0.8) 03/26/18 06:18 Eos # (Auto) 0.1 K/uL (0.0-0.7) 03/26/18 06:18 Baso # (Auto) 0.0 K/uL (0.0-0.2) 03/26/18 06:18 Neutrophils % (Manual) 67 % (50-75) 03/19/18 06:33 Band Neutrophils % 6 % (0-2) H 03/19/18 06:33 Lymphocytes % (Manual) 10 % (20-40) L 03/19/18 06:33 Reactive Lymphs % 1 % (0-0) H 03/19/18 06:33 Monocytes % (Manual) 15 % (0-10) H 03/19/18 06:33 Eosinophils % (Manual) 1 % (0-4) 03/19/18 06:33 Platelet Estimate Decreased (NORMAL) L 03/19/18 06:33 Hypochromasia (manual) Slight 03/19/18 06:33 Anisocytosis (manual) Slight 03/19/18 06:33 Retic Count 1.2 % (0.5-1.5) 03/20/18 06:39 Haptoglobin 355.5 mg/dL (30.0-200.0) H 03/20/18 06:40 PT 14.5 SECONDS (9.7-12.2) H 03/20/18 06:50 INR 1.3 03/20/18 06:50 APTT 37 SECONDS (21-34) H 03/18/18 12:57 Plt Function Assay 49 K/uL 03/19/18 06:33 Puncture Site Rb 03/19/18 04:40 pCO2 37 mm/Hg (35-45) 03/19/18 04:40 pO2 83 mm/Hg (80-100) 03/19/18 04:40 HCO3 26.8 mmol/L (21-28) 03/19/18 04:40 ABG pH 7.46 (7.35-7.45) H 03/19/18 04:40 ABG Total CO2 27.4 mmol/L (22-28) 03/19/18 04:40 ABG O2 Saturation 98.0 % (95-98) 03/19/18 04:40 ABG Base Excess 2.4 mmol/L (-2.0-3.0) 03/19/18 04:40 ABG Hemoglobin 10.0 g/dL (11.7-17.4) L 03/19/18 04:40 ABG Carboxyhemoglobin 2.0 % (0.5-1.5) H 03/19/18 04:40 POC ABG HHb (Measured) 1.9 % (0.0-5.0) 03/19/18 04:40 ABG Methemoglobin 0.9 % (0.0-3.0) 03/19/18 04:40 Gregory Test Na 03/19/18 04:40 ABG Potassium 4.2 mmol/L (3.6-5.2) 03/18/18 17:15 A-a O2 Difference 99.0 mm/Hg 03/19/18 04:40 Respiratory Index 1.2 03/19/18 04:40 Hgb O2 Saturation 95.2 % (95.0-98.0) 03/19/18 04:40 Sodium 130.0 mmol/l (132-148) L 03/18/18 17:15 Chloride 100.0 mmol/L (98-107) 03/18/18 17:15 Glucose 122 mg/dl (65-105) H 03/18/18 17:15 Lactate 1.4 mmol/L (0.7-2.1) 03/18/18 17:15 Liter Flow 3.0 03/19/18 04:40 FiO2 32.0 % 03/19/18 04:40 Sodium 138 mmol/L (132-148) 03/26/18 06:19 Potassium 4.5 mmol/L (3.6-5.2) 03/26/18 06:19 Chloride 99 mmol/L (98-107) 03/26/18 06:19 Carbon Dioxide 29 mmol/L (22-30) 03/26/18 06:19 Anion Gap 14 (10-20) 03/26/18 06:19 BUN 18 mg/dL (7-17) H 03/26/18 06:19 Creatinine 0.9 mg/dL (0.7-1.2) 03/26/18 06:19 Est GFR ( Amer) > 60 03/26/18 06:19 Est GFR (Non-Af Amer) 59 03/26/18 06:19 POC Glucose (mg/dL) 142 mg/dL (65-110) H 03/18/18 10:59 Random Glucose 101 mg/dL (65-105) 03/26/18 06:19 Calcium 8.6 mg/dl (8.6-10.4) 03/26/18 06:19 Ionized Calcium 5.8 mg/dL (4.80-5.60) H 03/22/18 18:15 Phosphorus 3.8 mg/dL (2.5-4.5) 03/23/18 06:23 Magnesium 1.7 mg/dL (1.6-2.3) 03/23/18 06:23 Iron 53 ug/dL (37-170) 03/18/18 17:35 TIBC 198 ug/dL (250-450) L 03/18/18 17:35 % Saturation 27 (20-55) 03/18/18 17:35 Ferritin 1080.0 ng/mL 03/18/18 17:35 Total Bilirubin 0.9 mg/dL (0.2-1.3) 03/26/18 06:19 AST 90 U/L (14-36) H D 03/26/18 06:19 ALT 118 U/L (9-52) H 03/26/18 06:19 Alkaline Phosphatase 341 U/L (38-126) H 03/26/18 06:19 Ammonia < 9 umol/L (9-33) L 03/22/18 15:00 Lactate Dehydrogenase 1009 U/L (313-618) H 03/20/18 06:40 Total Protein 5.8 g/dL (6.3-8.3) L 03/26/18 06:19 Total Protein (PEP) 5.5 g/dL (6.1-8.1) L 03/22/18 06:35 Albumin 3.0 g/dL (3.5-5.0) L 03/26/18 06:19 Albumin (PEP) 2.6 g/dL (3.8-4.8) L 03/22/18 06:35 Globulin 2.9 gm/dL (2.2-3.9) 03/26/18 06:19 Albumin/Globulin Ratio 1.0 (1.0-2.1) 03/26/18 06:19 Vpmll-3-Ptkldxzoq 0.6 g/dL (0.2-0.3) H 03/22/18 06:35 Xxljo-1-Mxvmrlwch 1.0 g/dL (0.5-0.9) H 03/22/18 06:35 Tpcx-4-Nkbtxuxl 0.3 g/dL (0.4-0.6) L 03/22/18 06:35 Wops-2-Eqjkwcdu 0.3 g/dL (0.2-0.5) 03/22/18 06:35 Gamma Globulins 0.8 g/dL (0.8-1.7) 03/22/18 06:35 Abnorm Protein Band 1 TEST NOT PERFORMED 03/22/18 06:35 Abnorm Protein Band 2 TEST NOT PERFORMED 03/22/18 06:35 Abnorm Protein Band 3 TEST NOT PERFORMED 03/22/18 06:35 Triglycerides 192 mg/dL (0-149) H D 03/18/18 15:36 Cholesterol 113 mg/dL (0-199) 03/18/18 15:36 LDL Cholesterol Direct 56 mg/dL (0-129) 03/18/18 15:36 HDL Cholesterol 14 mg/dL (30-70) L 03/18/18 15:36 Carcinoembryonic Ag 4.7 ng/mL (0-3.0) H 03/22/18 15:00 Prostate Specific Ag < 0.064 ng/mL (0.00-4.0) 03/22/18 06:00 Vitamin B12 711 pg/mL (239-931) 03/20/18 06:40 Folate 13.7 ng/mL 03/20/18 06:40 Procalcitonin 0.39 NG/ML (0.19-0.49) 03/23/18 06:23 Free T4 2.31 ng/dL (0.78-2.19) H 03/19/18 10:22 TSH 3rd Generation 1.77 mIU/L (0.46-4.68) 03/19/18 06:33 Arterial Blood Potassium 4.2 mmol/L (3.6-5.2) 03/18/18 17:15 Stool Occult Blood Negative (NEGATIVE) 03/19/18 06:14 KAYLYNN & SPEP Interp See note 03/22/18 06:35 Serum Immunofixation Not detected (Not Detected) 03/22/18 18:15 Hepatitis A IgM Ab Negative (NEGATIVE) 03/23/18 15:20 Hep Bs Antigen Negative (NEGATIVE) 03/23/18 15:20 Hep B Core IgM Ab Negative (NEGATIVE) 03/23/18 15:20 Hepatitis C Antibody Negative (NEGATIVE) 03/23/18 15:20 HIV-1 RNA copies/mL <20 not detected copies/mL (Not Detected) 03/23/18 06: 28 HIV-1 RNA logcopies/mL <1.30 not detected (Not Detected) 03/23/18 06:28 HIV-1 Genotyping (()) 03/23/18 06:28 HIV 1&2 Ag/Ab, 4th Gen Nonreactive (Nonreactive) 03/24/18 07:10 Ur L.pneumophila Ag Negative (NEGATIVE) 03/23/18 10:03 Mycoplasma pneumon IgM Negative (NEGATIVE) 03/23/18 06:23 Ur Strep pneumoniae Ag Not detected 03/23/18 07:34 Blood Type O POSITIVE 03/18/18 11:38 Blood Type Confirm O POSITIVE 03/18/18 11:38 Antibody Screen Negative 03/18/18 11:38 Attending/Attestation - Attestation I have personally seen and examined this patient.: Yes I have fully participated in the care of the patient.: Yes I have reviewed all pertinent clinical information, including history, physical exam and plan: Yes Notes (Text): 03/26/18 22:27 Patient was seen and examined shortly after resident Dr. Jamil. Discharge plan was gone over with Dr. Jamil. Spoke with Dr. Rohan Collins and explained to him that I have instructed patient to follow up with him for results of Bone Marrow biopsy. Jaycob Pittman D.O.
--- NOTE | 2018-03-26 09:04 | CP.PCM.PN ---
Subjective - Date & Time of Evaluation Date of Evaluation: 03/26/18 Time of Evaluation: 09:01 - Subjective Subjective: Feels better Renal function stabilized Lytes acceptable Awaiting BM results No other complaints Possible discharge noted Objective - Vital Signs/Intake and Output Vital Signs (last 24 hours): Temp Pulse Resp BP Pulse Ox 98.4 F 101 H 16 110/66 95 03/26/18 08:00 03/26/18 08:00 03/26/18 08:00 03/26/18 08:00 03/25/18 12:00 Intake and Output: 03/26/18 03/26/18 06:59 18:59 Intake Total 100 Output Total 650 Balance -550 - Medications Medications: Current Medications Apixaban (Eliquis) 2.5 mg PO BID [facility] Last Admin: 03/25/18 17:06 Dose: 2.5 mg Diltiazem HCl (Cardizem) 30 mg PO Q8H [facility] Last Admin: 03/26/18 04:53 Dose: 30 mg Diphenhydramine HCl (Benadryl) 25 mg PO HS PRN PRN Reason: Sleep Last Admin: 03/25/18 20:46 Dose: 25 mg Docusate Sodium (Colace) 100 mg PO TID [facility] Last Admin: 03/25/18 17:06 Dose: 100 mg Hydrocortisone (Cortizone 1% Cream) 0 gm TOP BID [facility] Last Admin: 03/25/18 17:52 Dose: 1 applic Levothyroxine Sodium (Synthroid) 25 mcg PO Q24H [facility] Last Admin: 03/26/18 07:02 Dose: 25 mcg Metoprolol Succinate (Toprol Xl) 100 mg PO DAILY [facility] Last Admin: 03/25/18 11:48 Dose: 100 mg Pantoprazole Sodium (Protonix Ec Tab) 40 mg PO DAILY [facility] - Labs Labs: 03/26/18 06:18 03/26/18 06:19 PT 14.5 SECONDS (9.7-12.2) H 03/20/18 06:50 INR 1.3 03/20/18 06:50 APTT 37 SECONDS (21-34) H 03/18/18 12:57 - Constitutional Appears: No Acute Distress, Chronically Ill - Head Exam Head Exam: ATRAUMATIC, NORMAL INSPECTION - Eye Exam Eye Exam: EOMI, Normal appearance - Neck Exam Neck Exam: Normal Inspection. absent: Tenderness - Respiratory Exam Respiratory Exam: Clear to Ausculation Bilateral, NORMAL BREATHING PATTERN - Cardiovascular Exam Cardiovascular Exam: REGULAR RHYTHM, +S1 - GI/Abdominal Exam GI & Abdominal Exam: Soft. absent: Tenderness - Extremities Exam Extremities Exam: Normal Inspection. absent: Tenderness - Neurological Exam Neurological Exam: Alert, CN II-XII Intact - Skin Skin Exam: Dry, Warm Assessment and Plan (1) Fall (on) (from) other stairs and steps, sequela Status: Acute (2) HTN (hypertension) Status: Acute (3) Atrial fibrillation Status: Chronic (4) GI bleed Status: Acute (5) CKD (chronic kidney disease) stage 3, GFR 30-59 ml/min Status: Acute (6) Pancytopenia Status: Acute - Assessment and Plan (Free Text) Plan: renal status stable can eventually follow up in office will see again as needed
[2018-03-26] MEDS: Hydrocortisone 1% Cream (30 GM) TOP SCH (09:21)
[2018-03-26] MEDS: Metoprolol Succinate 100 mg XL Tab PO SCH (09:21)
[2018-03-26] MEDS ORDERED: Pantoprazole 40 mg EC Tab PO SCH (10:00)
--- NOTE | 2018-03-26 10:57 | CP.PCM.PN ---
Subjective - Date & Time of Evaluation Date of Evaluation: 03/26/18 Time of Evaluation: 10:54 - Subjective Subjective: f/u anemia Denies abdom pain, CP, SOB, fever, GAITAN, cough, RB, melena Objective - Vital Signs/Intake and Output Vital Signs (last 24 hours): Temp Pulse Resp BP Pulse Ox 98.4 F 101 H 16 110/66 95 03/26/18 08:00 03/26/18 08:00 03/26/18 08:00 03/26/18 08:00 03/25/18 12:00 Intake and Output: 03/26/18 03/26/18 06:59 18:59 Intake Total 100 Output Total 650 Balance -550 - Medications Medications: Current Medications Apixaban (Eliquis) 2.5 mg PO BID [facility] Last Admin: 03/26/18 09:21 Dose: 2.5 mg Diltiazem HCl (Cardizem) 30 mg PO Q8H [facility] Last Admin: 03/26/18 04:53 Dose: 30 mg Diphenhydramine HCl (Benadryl) 25 mg PO HS PRN PRN Reason: Sleep Last Admin: 03/25/18 20:46 Dose: 25 mg Docusate Sodium (Colace) 100 mg PO TID [facility] Last Admin: 03/26/18 09:21 Dose: 100 mg Hydrocortisone (Cortizone 1% Cream) 0 gm TOP BID [facility] Last Admin: 03/26/18 09:21 Dose: 1 applic Levothyroxine Sodium (Synthroid) 25 mcg PO Q24H [facility] Last Admin: 03/26/18 07:02 Dose: 25 mcg Metoprolol Succinate (Toprol Xl) 100 mg PO DAILY [facility] Last Admin: 03/26/18 09:21 Dose: 100 mg Pantoprazole Sodium (Protonix Ec Tab) 40 mg PO DAILY [facility] Last Admin: 03/26/18 09:21 Dose: 40 mg - Labs Labs: 03/26/18 06:18 03/26/18 06:19 PT 14.5 SECONDS (9.7-12.2) H 03/20/18 06:50 INR 1.3 03/20/18 06:50 APTT 37 SECONDS (21-34) H 03/18/18 12:57 - Constitutional Appears: Well - Respiratory Exam Respiratory Exam: Clear to Ausculation Bilateral - Cardiovascular Exam Cardiovascular Exam: RRR - GI/Abdominal Exam GI & Abdominal Exam: Soft, Normal Bowel Sounds. absent: Tenderness - Extremities Exam Extremities Exam: absent: Calf Tenderness - Neurological Exam Neurological Exam: Alert, Oriented x3 Assessment and Plan (1) Atrial fibrillation Status: Chronic (2) HTN (hypertension) Status: Acute (3) Severe anemia Assessment & Plan: heme w/u Status: Acute (4) CAD (coronary artery disease) Status: Chronic (5) Abnormal LFTs Assessment & Plan: consider meds- amiodorone Status: Acute
[2018-03-26 16:13] VITALS: BP 108/60; PULSE 87; RESP 15; TEMP 97.5
--- NOTE | 2018-03-27 00:44 | CP.PCM.PN ---
Subjective - Date & Time of Evaluation Date of Evaluation: 03/26/18 Time of Evaluation: 11:40 - Subjective Subjective: Patient seen and evaluated Denies chest pain and dyspnea Awaiting Bone marrow results Continue Eliquis 2.5 mg po bid Objective - Vital Signs/Intake and Output Vital Signs (last 24 hours): Temp Pulse Resp BP Pulse Ox 97.5 F L 87 15 108/60 95 03/26/18 16:00 03/26/18 16:00 03/26/18 16:00 03/26/18 16:00 03/25/18 12:00 - Labs Labs: 03/26/18 06:18 03/26/18 06:19 PT 14.5 SECONDS (9.7-12.2) H 03/20/18 06:50 INR 1.3 03/20/18 06:50 APTT 37 SECONDS (21-34) H 03/18/18 12:57
== END 2018-03-26 16:13 | DRG 809 ==
LOC: C.ER 08:14 → C.9I 13:25
PROVIDERS: ADMIT Internal Medicine; ATTEND Internal Medicine
PROC: 30233N1 Transfusion of Nonautologous Red Blood Cells into Peripheral Vein, Percutaneous Approach (ICD-10-PCS; principal; 2018-03-18)
PROC: 0DJ08ZZ Inspection of Upper Intestinal Tract, Via Natural or Artificial Opening Endoscopic (ICD-10-PCS; 2018-03-19)
DX: D61.818 Other pancytopenia (principal); G83.4 Cauda equina syndrome; I13.0 Hypertensive heart and chronic kidney disease with heart failure and stage 1 through stage 4 chronic kidney disease, or unspecified chronic kidney disease; N17.9 Acute kidney failure, unspecified; K22.10 Ulcer of esophagus without bleeding; K92.2 Gastrointestinal hemorrhage, unspecified; D50.0 Iron deficiency anemia secondary to blood loss (chronic); E03.9 Hypothyroidism, unspecified; E78.00 Pure hypercholesterolemia, unspecified; G62.9 Polyneuropathy, unspecified; T45.515A Adverse effect of anticoagulants, initial encounter; E11.22 Type 2 diabetes mellitus with diabetic chronic kidney disease; N18.3 Chronic kidney disease, stage 3 (moderate); I50.9 Heart failure, unspecified; I25.10 Atherosclerotic heart disease of native coronary artery without angina pectoris; I48.91 Unspecified atrial fibrillation; K26.9 Duodenal ulcer, unspecified as acute or chronic, without hemorrhage or perforation; W01.0XXA Fall on same level from slipping, tripping and stumbling without subsequent striking against object, initial encounter; M25.552 Pain in left hip; M25.522 Pain in left elbow; M25.562 Pain in left knee; Z95.2 Presence of prosthetic heart valve; Z95.5 Presence of coronary angioplasty implant and graft; Z79.01 Long term (current) use of anticoagulants

== ENCOUNTER 2018-04-03 16:07 | Inpatient (IN) | payer MEDICARE ==
[2018-04-03 16:22] VITALS: BMI 27.6
--- NOTE | 2018-04-03 16:42 | C.PDOC ---
History Of Present Illness 87 y/o female with history of A-fib, HTN, Pacemaker placement and 5 stents brought to ED by EMS with c/o leg swelling since yesterday and worsening sob today. Patient states she has not received Lasix for 2 weeks at halfway. Patient was hospitalized secondary to fall, found to have GI bleed and was Anemic. As per family patient has a bone marrow biopsy and are concern because have yet to obtain results. Patient denies fever, abdominal pain, nausea, headache, diarrhea, vomiting, chest pain or any other complaints at this time. Time Seen by Provider: 04/03/18 16:18 Chief Complaint (Nursing): Respiratory Distress History Per: Patient, EMS, Family History/Exam Limitations: no limitations Onset/Duration Of Symptoms: Days Current Symptoms Are (Timing): Still Present Past Medical History Reviewed: Historical Data, Nursing Documentation, Vital Signs Vital Signs: Last Vital Signs Temp 102 F H 04/03/18 17:48 Pulse 136 H 04/03/18 17:52 Resp 30 H 04/03/18 17:52 BP 122/81 04/03/18 17:52 Pulse Ox 100 04/03/18 18:08 - Medical History PMH: Anemia, Arthritis, Atrial Fibrillation, Back Problems, CAD, HTN, Hypercholesterolemia, Chronic Kidney Disease Surgical History: Coronary Stent (x2), Pacemaker - [facility] Procedures FLUOROSCOPY OF LEFT HEART USING OTHER CONTRAST (07/08/15) INSPECTION OF UPPER INTESTINAL TRACT, ENDO (03/18/18) MEASURE OF CARDIAC SAMPL & PRESSURE, L HEART, PERC APPROACH (07/08/15) PACEMAKER RATE CHECK (03/30/15) TRANSFUSE NONAUT RED BLOOD CELLS IN PERIPH VEIN, PERC (03/18/18) Family History: States: CAD - Social History Hx Tobacco Use: No Hx Alcohol Use: No Hx Substance Use: No - Immunization History Hx Tetanus Toxoid Vaccination: No Hx Influenza Vaccination: No Hx Pneumococcal Vaccination: Yes (last week) Review Of Systems Constitutional: Negative for: Fever, Chills Cardiovascular: Negative for: Chest Pain Respiratory: Positive for: Shortness of Breath Gastrointestinal: Negative for: Nausea, Vomiting Musculoskeletal: Positive for: Leg Pain (swelling) Skin: Negative for: Rash Physical Exam - Physical Exam Appears: Non-toxic, Other (In mild respiratory distress) Skin: Warm, Dry, No Rash Head: Atraumatic, Normacephalic Eye(s): bilateral: Normal Inspection Oral Mucosa: Moist Neck: Normal ROM, Supple Cardiovascular: Rhythm Regular Respiratory: Rales (bilateral), No Rhonchi, Wheezing (bilateral) Gastrointestinal/Abdominal: Soft, No Tenderness, No Guarding, No Rebound Extremity: Capillary Refill (<2 seconds), No Deformity, Other (pitting edema to bilateral lower extremities) Pulses: Left Dorsalis Pedis: Normal, Right Dorsalis Pedis: Normal Neurological/Psych: Oriented x3, Normal Motor, Normal Sensation ED Course And Treatment - Laboratory Results Result Diagrams: 04/03/18 16:38 04/03/18 16:38 ECG: Interpreted By Me, Viewed By Me ECG Rhythm: Atrial Fibrillation, L BBB Rate From EC (bpm) O2 Sat by Pulse Oximetry: 100 (RA) Medical Decision Making Medical Decision Making: Progress: Rectal temperature taken, patient has 102 temperature. Tylenol administered 1735: D/w Dr. Pittman ICU information resources manager, instructed patient receive Verapamil and entered orders for bypap. 1750: Dr. Pittman evaluated patient at bedside, recommended patient be administered Doxycycline and Zosyn. Disposition Counseled Patient/Family Regarding: Diagnosis, Need For Followup - Disposition Disposition: HOSPITALIZED Disposition Time: 17:48 Condition: CRITICAL Forms: [facility] (Nepali) - POA Present On Arrival: None - Clinical Impression Clinical Impression: Dyspnea, CHF exacerbation - Scribe Statement The provider has reviewed the documentation as recorded by the [employer] Bosch All medical record entries made by the Scribe were at my direction and personally dictated by me. I have reviewed the chart and agree that the record accurately reflects my personal performance of the history, physical exam, medical decision making, and the department course for this patient. I have also personally directed, reviewed, and agree with the discharge instructions and disposition. Decision To Admit - Pt Status Changed To: Hospital Disposition Of: Inpatient - Admit Certification Admit to Inpatient:: After my assessment, the patient will require hospitalization for at least two midnights. This is because of the severity of symptoms shown, intensity of services needed, and/or the medical risk in this patient being treated as an outpatient. - InPatient: Physician Admission Certification: I certify that this patient requires 2 or more midnights of care for the following reason:: critical patient - . Bed Request Type: ICU Patient Diagnosis: Dyspnea, CHF exacerbation
[2018-04-03 16:46] LABS: BASO % 0.4 % (0.0-2.0); EOS % 0.4 % (0.0-4.0); HEMOGLOBIN 9.6 g/dL (11.0-16.0); LYMPH # 0.2 K/uL (1.0-4.3); MEAN CELL VOLUME 81.9 fL (81.0-99.0); MEAN CORPUSCULAR HEMOGLOBIN 26.8 pg (27.0-31.0); MEAN CORPUSCULAR HGB CONC 32.7 g/dL (33.0-37.0); MEAN PLATELET VOLUME 8.4 fL (7.2-11.7); MONO # 0.8 K/uL (0.0-0.8); MONO % 19.4 % (0.0-10.0); NEUT # 3.1 K/uL (1.8-7.0); NEUT % 73.8 % (50.0-75.0); NRBC % 0.1 % (0.0-2.0); PLATELET COUNT 91 K/uL (130-400); RED CELL DISTRIBUTION WIDTH 18.8 % (11.5-14.5); WHITE BLOOD COUNT 4.2 K/uL (4.8-10.8)
[2018-04-03 17:08] LABS: SQUAMOUS EPITHIAL 7 /hpf (0-5); URINE BILIRUBIN NEGATIVE (NEGATIVE); URINE BLOOD NEGATIVE (NEGATIVE); URINE CLARITY Hazy (Clear); URINE COLOR Amber (YELLOW); URINE GLUCOSE (UA) NORMAL (Normal); URINE LEUKOCYTE ESTERASE 2+ Leu/uL (Negative); URINE PROTEIN 1+ mg/dL (NEGATIVE)
--- NOTE | 2018-04-03 17:08 | RAD ---
PROCEDURE: CHEST RADIOGRAPH, 1 VIEW HISTORY: SOB COMPARISON: Chest radiograph dated 03/21/2018. FINDINGS: LUNGS: Pulmonary vascular congestion. Bibasilar atelectasis. PLEURA: Trace/small bilateral pleural effusions. No appreciable pneumothorax. CARDIOVASCULAR: Left subclavian access pacemaker redemonstrated. T AVR redemonstrated. Remote joining calcification redemonstrated. Atherosclerotic aortic calcifications. Cardiomediastinal silhouette stably enlarged. OSSEOUS STRUCTURES: Unchanged. VISUALIZED UPPER ABDOMEN: Normal. OTHER FINDINGS: None. IMPRESSION: Pulmonary vascular congestion with trace/ small bilateral pleural effusions.
[2018-04-03 17:10] LABS: ALB/GLOB RATIO 1.2 (1.0-2.1); ALBUMIN 3.6 g/dL (3.5-5.0); CALCIUM 8.8 mg/dl (8.6-10.4)
[2018-04-03 17:11] LABS: TROPONIN I 0.036 ng/mL (0.00-0.120)
[2018-04-03 17:14] LABS: INR 2.1; PROTHROMBIN TIME 22.7 SECONDS (9.7-12.2)
[2018-04-03] MEDS ORDERED: Verapamil 2 ML ONE (17:52)
[2018-04-03 17:57] LABS: LYMPHOCYTE 6 % (20-40); MONOCYTE 19 % (0-10); NEUTROPHIL 75 % (50-75); TOTAL CELLS COUNTED 100
[2018-04-03 17:58] LABS: ANISOCYTOSIS SLIGHT; OVALOCYTES SLIGHT; PLATELET ESTIMATE DECREASED (NORMAL); POLYCHROMIC SLIGHT
[2018-04-03] MEDS ORDERED: Piperacillin/Tazobact 3.375 gm 100 ML IV STA (17:58)
[2018-04-03] MEDS ORDERED: Piperacillin/Tazobact 3.375 gm 100 ML IVPB ONE (18:25)
[2018-04-03 18:33] LABS: VENOUS BLOOD GAS BASE EXCESS -0.1 mmol/L (0.0-2.0); VENOUS BLOOD GAS PCO2 36 mmHg (40-60); VENOUS BLOOD GAS PO2 42 mm/Hg (30-55); VENOUS BLOOD PH 7.43 (7.32-7.43)
[2018-04-03] MEDS ORDERED: Sodium Chloride 0.9% 1,000 ML IV ONE (18:47)
[2018-04-03] MEDS ORDERED: Digoxin 500 mcg/2ml (0.5 mg/2ml) Inj IVP ONE ×2 (18:47→23:00)
[2018-04-03] MEDS ORDERED: Ipratropium 0.02% Inhal Soln (0.5 mg/2.5 ml) UD IH PRN (20:00)
--- NOTE | 2018-04-03 21:36 | CP.PCM.CON ---
History of Present Illness - History of Present Illness History of Present Illness: 87 y/o female well known to ICU was recently admitted to ICU for last month for severely low hb 6.8. Patient was discharged to rehab and presents to [facility] with c/o swollen lower legs and difficulty breathing. Patient was evaluated early when labs were not available. Patient v/o dyspnea, with inability to lay flat. speaking in 1 word sentences. Patient denied any chest pain, denied any abdominal pain, denies any headaches. Patient was placed on bi-pap and given lasix in ER. CXR revealed no infiltrates, UA was not avaialbel, requested ER to provide zosyn and doxycycline x 1 dose after ventura culture for sepsis Review of Systems - Review of Systems Review of Systems: as per HPI Past Patient History - Past Medical History & Family History Past Medical History?: Yes - Past Social History Smoking Status: Never Smoked - CARDIAC Hx Cardiac Disorders: Yes Hx Atrial Fibrillation: Yes Hx Congestive Heart Failure: Yes Hx Hypercholesterolemia: Yes Hx Hypertension: Yes Hx Pacemaker: Yes - PULMONARY Hx Respiratory Disorders: Yes - NEUROLOGICAL Hx Neurological Disorder: No - HEENT Hx HEENT Problems: No - RENAL Hx Chronic Kidney Disease: Yes - ENDOCRINE/METABOLIC Hx Endocrine Disorders: No - HEMATOLOGICAL/ONCOLOGICAL Hx Blood Disorders: Yes Hx Anemia: Yes Hx Blood Transfusions: Yes - INTEGUMENTARY Hx Dermatological Problems: No - MUSCULOSKELETAL/RHEUMATOLOGICAL Hx Musculoskeletal Disorders: Yes Hx Arthritis: Yes Hx Falls: Yes - GASTROINTESTINAL Hx Gastrointestinal Disorders: Yes Hx Ulcer: Yes (duodenal) - GENITOURINARY/GYNECOLOGICAL Hx Genitourinary Disorders: No - PSYCHIATRIC Hx Psychophysiologic Disorder: No Hx Substance Use: No - SURGICAL HISTORY Hx Surgeries: Yes Hx Coronary Stent: Yes (x2) Hx Valve Replacement: Yes Other/Comment: permanent pacemaker - ANESTHESIA Hx Anesthesia: Yes Hx Anesthesia Reactions: No Hx Malignant Hyperthermia: No Has any member of the family had a problem w/ anesthesia?: No Meds Allergies/Adverse Reactions: Allergies Allergy/AdvReac Type Severity Reaction Status Date / Time shellfish derived Allergy Intermediate RASH Verified 04/03/18 16:13 statins Allergy Intermediate RASH Uncoded 04/03/18 16:13 - Medications Medications: Current Medications Digoxin (Lanoxin) 0.25 mg IVP ONCE ONE Stop: 04/03/18 23:01 Ipratropium Raymond (Atrovent) 0.5 mg IH RQ6 PRN PRN Reason: Shortness of Breath Pantoprazole Sodium (Protonix Inj) 40 mg IVP DAILY KIMBERLEE Physical Exam - Head Exam Head Exam: ATRAUMATIC, NORMAL INSPECTION, NORMOCEPHALIC - Eye Exam Eye Exam: PERRL Pupil Exam: NORMAL ACCOMODATION - ENT Exam ENT Exam: Mucous Membranes Moist - Neck Exam Additional comments: (+)JVD - Respiratory Exam Respiratory Exam: Accessory Muscle Use, Decreased Breath Sounds, Rales, Respiratory Distress. absent: Chest Wall Tenderness, Clear to Auscultation Bilateral, Stridor - Cardiovascular Exam Cardiovascular Exam: Tachycardia, +S1, +S2, +S4, Systolic Murmur - GI/Abdominal Exam GI & Abdominal Exam: Normal Bowel Sounds, Soft - Rectal Exam Rectal Exam: Deferred - Extremities Exam Extremities exam: Positive for: pedal edema Results - Vital Signs Recent Vital Signs: Last Vital Signs Temp 100 F H 04/03/18 20:10 Pulse 120 H 04/03/18 21:20 Resp 25 H 04/03/18 21:20 BP 100/57 L 04/03/18 21:20 Pulse Ox 99 04/03/18 21:20 - Labs Result Diagrams: 04/03/18 16:38 04/03/18 16:38 Labs: Laboratory Results - last 24 hr 04/03/18 04/03/18 04/03/18 16:38 16:38 16:38 WBC 4.2 L RBC 3.60 L Hgb 9.6 L Hct 29.4 L MCV 81.9 MCH 26.8 L MCHC 32.7 L RDW 18.8 H Plt Count 91 L MPV 8.4 Neut % (Auto) 73.8 Lymph % (Auto) 6.0 L [place] % (Auto) 19.4 H Eos % (Auto) 0.4 Baso % (Auto) 0.4 Neut # (Auto) 3.1 Lymph # (Auto) 0.2 L [place] # (Auto) 0.8 Eos # (Auto) 0.0 Baso # (Auto) 0.0 Neutrophils % (Manual) 75 Lymphocytes % (Manual) 6 L Monocytes % (Manual) 19 H Platelet Estimate Decreased L Polychromasia Slight Anisocytosis (manual) Slight Ovalocytes Slight PT 22.7 H INR 2.1 APTT 39 H pO2 VBG pH VBG pCO2 VBG HCO3 VBG Total CO2 VBG O2 Sat (Calc) VBG Base Excess VBG Potassium Glucose Lactate Sodium 134 Potassium 4.2 Chloride 96 L Carbon Dioxide 25 Anion Gap 18 BUN 32 H Creatinine 1.1 Est GFR ( Amer) 57 Est GFR (Non-Af Amer) 47 Random Glucose 127 H Calcium 8.8 Total Bilirubin 1.8 H AST 59 H D ALT 65 H D Alkaline Phosphatase 318 H Troponin I 0.0360 NT-Pro-B Natriuret Pep 56546 H Total Protein 6.6 Albumin 3.6 Globulin 3.0 Albumin/Globulin Ratio 1.2 Venous Blood Potassium Urine Color Urine Clarity Urine pH Ur Specific [place] Urine Protein Urine Glucose (UA) Urine Ketones Urine Blood Urine Nitrate Urine Bilirubin Urine Urobilinogen Ur Leukocyte Esterase Urine WBC (Auto) Urine RBC (Auto) Ur Squamous Epith Cells Hyaline Casts 04/03/18 04/03/18 16:56 18:29 WBC RBC Hgb Hct MCV MCH MCHC RDW Plt Count MPV Neut % (Auto) Lymph % (Auto) [place] % (Auto) Eos % (Auto) Baso % (Auto) Neut # (Auto) Lymph # (Auto) [place] # (Auto) Eos # (Auto) Baso # (Auto) Neutrophils % (Manual) Lymphocytes % (Manual) Monocytes % (Manual) Platelet Estimate Polychromasia Anisocytosis (manual) Ovalocytes PT INR APTT pO2 42 VBG pH 7.43 VBG pCO2 36 L VBG HCO3 24.4 VBG Total CO2 25.0 VBG O2 Sat (Calc) 81.7 H VBG Base Excess -0.1 L VBG Potassium 3.9 Glucose 126 H Lactate 1.7 Sodium 132.0 Potassium Chloride 99.0 Carbon Dioxide Anion Gap BUN Creatinine Est GFR ( Amer) Est GFR (Non-Af Amer) Random Glucose Calcium Total Bilirubin AST ALT Alkaline Phosphatase Troponin I NT-Pro-B Natriuret Pep Total Protein Albumin Globulin Albumin/Globulin Ratio Venous Blood Potassium 3.9 Urine Color Lauren Urine Clarity Hazy Urine pH 5.0 Ur Specific [place] 1.017 Urine Protein 1+ H Urine Glucose (UA) Normal Urine Ketones Negative Urine Blood Negative Urine Nitrate Negative Urine Bilirubin Negative Urine Urobilinogen 4.0 H Ur Leukocyte Esterase 2+ H Urine WBC (Auto) 38 H Urine RBC (Auto) 3 Ur Squamous Epith Cells 7 H Hyaline Casts 3-5 H Assessment & Plan - Assessment and Plan (Free Text) Assessment: 87 year old female with PMHx of Atrial Fibrillation, CAD s/p LAD stent, with Multi-vessel Disease, HTN, Pacemaker, and s/p TAVR x2 presents to the ED with SOB and lower leg swelling (+)shortness of breath, is speaking in one word sentences. -SOB: suspect fluid overloaded, continue lasix, bi-pap and other heart failure medications -h/o Upper Gi bleed: S/P EGD 03/19 with findings: non-bleeding esophageal ulcer, non-bleeding duodenal ulcer with no stimata of bleeding. continue protonix q12hrs -Atrial Fibrillation restart: cardizem 50 mg q8hrs, one dose of verapamil pushed in ER, check INR -CAD/A-fib/h/o TAVR: will benefit from Antiplatelets -sepsis: ventura culture, start zosyn and doxycycline, lactic qq4hrs, x3, monitor BP to keep MAP >65, pressors if MAP <65 -h/o Dyslipidemia: will benefit from omega 3, fish oil, niacin outpatient to increase HDL -h/o OLIVIA -pending cmp -PUD ppx: PPI Q12 - SCDs pending INR -keep NPO except meds -Patient will benefit from ICU level care cc time 35 minutes d/w Dr. Werner - Date & Time Date: 04/03/18 Time: 21:45
--- NOTE | 2018-04-03 22:45 | CP.PCM.HP ---
History of Present Illness - History of Present Illness History of Present Illness: Chief complaint: Shortness of breath HPI: 87-year-old female with a history of atrial fibrillation, CAD, hypertension, TAVR *2, on anticoagulation came to the emergency room From rehab because of the shortness of breath. According to the patient's son she was having some shortness of breath this since it 2-3 days. She is also started noticing some leg swelling bilaterally. She did not have any chest pain. This morning she went to the physical therapy at the rehab, but because she was having increasing huffing and puffing, and also severe shortness of breath, called ambulance, brought to the emergency room. In the emergency room initially patient was having severe dyspnea, based on high flow FiO2, without any improvement. She was given Lasix, and also placed on BiPAP then she she was feeling some improvement. Patient now in the intensive care unit. She is feeling somewhat comfortable, able to complete a sentence. Still weakness noted, tiredness noted. She is feeling increasingly exhausted. Leg swelling noted. She did not get any Lasix while she was in the rehab. Patient was hospitalized recently to 3 weeks ago for anemia. , At that time she underwent upper endoscopy. There was no clear source of bleeding. Patient was placed on PPI, and also received a multiple transfusion at that time. Since then she was feeling increasingly weakness and tiredness. She was also been seen by railroad switchman, and he received a bone marrow biopsy, the results are currently pending. Past medical history: Hypertension, CAD, CAD and stent, I added valve replacement 2, Duodenal ulcers Atrial fibrillation Family history noncontributing Surgical history includes stenting, and also I did valve replacement 2,, Upper endoscopy Allergy allergic to several physicians tachycardia Review of system: Complaining of weakness, tiredness, easy fatigability, falls. A bruise noted. Shortness of breath noted On examination: In the emergency room patient was evaluated. The blood pressure is on the low side. Chest bilateral good air entry. Regular heart sound. Tachycardia noted. Abdomen soft nontender. pedal edema ++ OB/GYN PHYSICIAN alert awake oriented 3 no functional neurological deficits Patient's labs reviewed Elevation of the proBNP level noted. Hemoglobin is 9.6. Platelet is 91. Chest x-ray showing bilateral vascular congestive changes. Assessment and recommendation: 87-year-old female with a history of atrial fibrillation, CAD, status post aortic valve replacement. Pacemaker. Duodenal ulcer. Gastritis. Anemia. Now admitted with acute decompensated likely heart failure. Possible diastolic heart failure. Aortic valve replacement. Urinary tract infection also possible. Fever noted and possible sepsis. Empirical antibiotic Zosyn started. Patient was on anticoagulation. We will hold anticoagulation for now. Bronchodilators. BiPAP. Lasix. Monitor the vital signs. Tachycardia noted. Add Cardizem. DVT GI prophylaxis I spoke to the patient's son in detail. We will follow the patient. Present on Admission - Present on Admission Any Indicators Present on Admission: No History of DVT/PE: No History of Uncontrolled Diabetes: No Urinary Catheter: No Decubitus Ulcer Present: No Past Patient History - Past Medical History & Family History Past Medical History?: Yes - Past Social History Smoking Status: Never Smoked - CARDIAC Hx Cardiac Disorders: Yes Hx Atrial Fibrillation: Yes Hx Congestive Heart Failure: Yes Hx Hypercholesterolemia: Yes Hx Hypertension: Yes Hx Pacemaker: Yes - PULMONARY Hx Respiratory Disorders: Yes - NEUROLOGICAL Hx Neurological Disorder: No - HEENT Hx HEENT Problems: No - RENAL Hx Chronic Kidney Disease: Yes - ENDOCRINE/METABOLIC Hx Endocrine Disorders: No - HEMATOLOGICAL/ONCOLOGICAL Hx Blood Disorders: Yes Hx Anemia: Yes Hx Blood Transfusions: Yes - INTEGUMENTARY Hx Dermatological Problems: No - MUSCULOSKELETAL/RHEUMATOLOGICAL Hx Musculoskeletal Disorders: Yes Hx Arthritis: Yes Hx Falls: Yes - GASTROINTESTINAL Hx Gastrointestinal Disorders: Yes Hx Ulcer: Yes (duodenal) - GENITOURINARY/GYNECOLOGICAL Hx Genitourinary Disorders: No - PSYCHIATRIC Hx Psychophysiologic Disorder: No Hx Substance Use: No - SURGICAL HISTORY Hx Surgeries: Yes Hx Coronary Stent: Yes (x2) Hx Valve Replacement: Yes Other/Comment: permanent pacemaker - ANESTHESIA Hx Anesthesia: Yes Hx Anesthesia Reactions: No Hx Malignant Hyperthermia: No Has any member of the family had a problem w/ anesthesia?: No Meds Allergies/Adverse Reactions: Allergies Allergy/AdvReac Type Severity Reaction Status Date / Time shellfish derived Allergy Intermediate RASH Verified 04/03/18 16:13 statins Allergy Intermediate RASH Uncoded 04/03/18 16:13 Results - Vital Signs Recent Vital Signs: Last Vital Signs Temp 100 F H 04/03/18 20:10 Pulse 121 H 04/03/18 22:12 Resp 25 H 04/03/18 21:20 BP 100/57 L 04/03/18 21:20 Pulse Ox 99 04/03/18 21:20 - Labs Result Diagrams: 04/03/18 16:38 04/03/18 16:38 Labs: Laboratory Results - last 24 hr 04/03/18 04/03/18 04/03/18 16:38 16:38 16:38 WBC 4.2 L RBC 3.60 L Hgb 9.6 L Hct 29.4 L MCV 81.9 MCH 26.8 L MCHC 32.7 L RDW 18.8 H Plt Count 91 L MPV 8.4 Neut % (Auto) 73.8 Lymph % (Auto) 6.0 L [place] % (Auto) 19.4 H Eos % (Auto) 0.4 Baso % (Auto) 0.4 Neut # (Auto) 3.1 Lymph # (Auto) 0.2 L [place] # (Auto) 0.8 Eos # (Auto) 0.0 Baso # (Auto) 0.0 Neutrophils % (Manual) 75 Lymphocytes % (Manual) 6 L Monocytes % (Manual) 19 H Platelet Estimate Decreased L Polychromasia Slight Anisocytosis (manual) Slight Ovalocytes Slight PT 22.7 H INR 2.1 APTT 39 H pO2 VBG pH VBG pCO2 VBG HCO3 VBG Total CO2 VBG O2 Sat (Calc) VBG Base Excess VBG Potassium Glucose Lactate Sodium 134 Potassium 4.2 Chloride 96 L Carbon Dioxide 25 Anion Gap 18 BUN 32 H Creatinine 1.1 Est GFR ( Amer) 57 Est GFR (Non-Af Amer) 47 Random Glucose 127 H Calcium 8.8 Total Bilirubin 1.8 H AST 59 H D ALT 65 H D Alkaline Phosphatase 318 H Troponin I 0.0360 NT-Pro-B Natriuret Pep 55963 H Total Protein 6.6 Albumin 3.6 Globulin 3.0 Albumin/Globulin Ratio 1.2 Venous Blood Potassium Urine Color Urine Clarity Urine pH Ur Specific [place] Urine Protein Urine Glucose (UA) Urine Ketones Urine Blood Urine Nitrate Urine Bilirubin Urine Urobilinogen Ur Leukocyte Esterase Urine WBC (Auto) Urine RBC (Auto) Ur Squamous Epith Cells Hyaline Casts 04/03/18 04/03/18 16:56 18:29 WBC RBC Hgb Hct MCV MCH MCHC RDW Plt Count MPV Neut % (Auto) Lymph % (Auto) [place] % (Auto) Eos % (Auto) Baso % (Auto) Neut # (Auto) Lymph # (Auto) [place] # (Auto) Eos # (Auto) Baso # (Auto) Neutrophils % (Manual) Lymphocytes % (Manual) Monocytes % (Manual) Platelet Estimate Polychromasia Anisocytosis (manual) Ovalocytes PT INR APTT pO2 42 VBG pH 7.43 VBG pCO2 36 L VBG HCO3 24.4 VBG Total CO2 25.0 VBG O2 Sat (Calc) 81.7 H VBG Base Excess -0.1 L VBG Potassium 3.9 Glucose 126 H Lactate 1.7 Sodium 132.0 Potassium Chloride 99.0 Carbon Dioxide Anion Gap BUN Creatinine Est GFR ( Amer) Est GFR (Non-Af Amer) Random Glucose Calcium Total Bilirubin AST ALT Alkaline Phosphatase Troponin I NT-Pro-B Natriuret Pep Total Protein Albumin Globulin Albumin/Globulin Ratio Venous Blood Potassium 3.9 Urine Color Lauren Urine Clarity Hazy Urine pH 5.0 Ur Specific [place] 1.017 Urine Protein 1+ H Urine Glucose (UA) Normal Urine Ketones Negative Urine Blood Negative Urine Nitrate Negative Urine Bilirubin Negative Urine Urobilinogen 4.0 H Ur Leukocyte Esterase 2+ H Urine WBC (Auto) 38 H Urine RBC (Auto) 3 Ur Squamous Epith Cells 7 H Hyaline Casts 3-5 H
--- NOTE | 2018-04-03 23:09 | CP.PCM.CON ---
History of Present Illness - History of Present Illness History of Present Illness: Patient transferred to [facility] from [facility] for acute on Chronic diastolic CHF and rapid heart rate Past Patient History - Past Medical History & Family History Past Medical History?: Yes - Past Social History Smoking Status: Never Smoked - CARDIAC Hx Cardiac Disorders: Yes Hx Atrial Fibrillation: Yes Hx Congestive Heart Failure: Yes Hx Hypercholesterolemia: Yes Hx Hypertension: Yes Hx Pacemaker: Yes - PULMONARY Hx Respiratory Disorders: Yes - NEUROLOGICAL Hx Neurological Disorder: No - HEENT Hx HEENT Problems: No - RENAL Hx Chronic Kidney Disease: Yes - ENDOCRINE/METABOLIC Hx Endocrine Disorders: No - HEMATOLOGICAL/ONCOLOGICAL Hx Blood Disorders: Yes Hx Anemia: Yes Hx Blood Transfusions: Yes - INTEGUMENTARY Hx Dermatological Problems: No - MUSCULOSKELETAL/RHEUMATOLOGICAL Hx Musculoskeletal Disorders: Yes Hx Arthritis: Yes Hx Falls: Yes - GASTROINTESTINAL Hx Gastrointestinal Disorders: Yes Hx Ulcer: Yes (duodenal) - GENITOURINARY/GYNECOLOGICAL Hx Genitourinary Disorders: No - PSYCHIATRIC Hx Psychophysiologic Disorder: No Hx Substance Use: No - SURGICAL HISTORY Hx Surgeries: Yes Hx Coronary Stent: Yes (x2) Hx Valve Replacement: Yes Other/Comment: permanent pacemaker - ANESTHESIA Hx Anesthesia: Yes Hx Anesthesia Reactions: No Hx Malignant Hyperthermia: No Has any member of the family had a problem w/ anesthesia?: No Meds Allergies/Adverse Reactions: Allergies Allergy/AdvReac Type Severity Reaction Status Date / Time shellfish derived Allergy Intermediate RASH Verified 04/03/18 16:13 statins Allergy Intermediate RASH Uncoded 04/03/18 16:13 - Medications Medications: Current Medications Acetaminophen (Tylenol 325mg Tab) 650 mg PO Q6 PRN PRN Reason: Fever >100.4 F Apixaban (Eliquis) 2.5 mg PO BID [facility] Diltiazem HCl (Cardizem) 30 mg PO QID [facility] Furosemide (Lasix) 20 mg IVP BID [facility] Piperacillin Sod/Tazobactam Sod (Zosyn 3.375 Gm Iv Premix) 3.375 gm in 50 mls @ 100 mls/hr IVPB Q8H [facility] PRN Reason: Protocol Ipratropium [place] (Atrovent) 0.5 mg IH RQ6 PRN PRN Reason: Shortness of Breath Pantoprazole Sodium (Protonix Inj) 40 mg IVP DAILY [facility] Results - Vital Signs Recent Vital Signs: Last Vital Signs Temp 100 F H 04/03/18 20:10 Pulse 121 H 04/03/18 22:12 Resp 25 H 04/03/18 21:20 BP 100/57 L 04/03/18 21:20 Pulse Ox 99 04/03/18 21:20 - Labs Result Diagrams: 04/03/18 16:38 04/03/18 16:38 Labs: Laboratory Results - last 24 hr 04/03/18 04/03/18 04/03/18 16:38 16:38 16:38 WBC 4.2 L RBC 3.60 L Hgb 9.6 L Hct 29.4 L MCV 81.9 MCH 26.8 L MCHC 32.7 L RDW 18.8 H Plt Count 91 L MPV 8.4 Neut % (Auto) 73.8 Lymph % (Auto) 6.0 L [place] % (Auto) 19.4 H Eos % (Auto) 0.4 Baso % (Auto) 0.4 Neut # (Auto) 3.1 Lymph # (Auto) 0.2 L [place] # (Auto) 0.8 Eos # (Auto) 0.0 Baso # (Auto) 0.0 Neutrophils % (Manual) 75 Lymphocytes % (Manual) 6 L Monocytes % (Manual) 19 H Platelet Estimate Decreased L Polychromasia Slight Anisocytosis (manual) Slight Ovalocytes Slight PT 22.7 H INR 2.1 APTT 39 H pO2 VBG pH VBG pCO2 VBG HCO3 VBG Total CO2 VBG O2 Sat (Calc) VBG Base Excess VBG Potassium Glucose Lactate Sodium 134 Potassium 4.2 Chloride 96 L Carbon Dioxide 25 Anion Gap 18 BUN 32 H Creatinine 1.1 Est GFR ( Amer) 57 Est GFR (Non-Af Amer) 47 Random Glucose 127 H Calcium 8.8 Total Bilirubin 1.8 H AST 59 H D ALT 65 H D Alkaline Phosphatase 318 H Troponin I 0.0360 NT-Pro-B Natriuret Pep 69469 H Total Protein 6.6 Albumin 3.6 Globulin 3.0 Albumin/Globulin Ratio 1.2 Venous Blood Potassium Urine Color Urine Clarity Urine pH Ur Specific [place] Urine Protein Urine Glucose (UA) Urine Ketones Urine Blood Urine Nitrate Urine Bilirubin Urine Urobilinogen Ur Leukocyte Esterase Urine WBC (Auto) Urine RBC (Auto) Ur Squamous Epith Cells Hyaline Casts 04/03/18 04/03/18 16:56 18:29 WBC RBC Hgb Hct MCV MCH MCHC RDW Plt Count MPV Neut % (Auto) Lymph % (Auto) [place] % (Auto) Eos % (Auto) Baso % (Auto) Neut # (Auto) Lymph # (Auto) [place] # (Auto) Eos # (Auto) Baso # (Auto) Neutrophils % (Manual) Lymphocytes % (Manual) Monocytes % (Manual) Platelet Estimate Polychromasia Anisocytosis (manual) Ovalocytes PT INR APTT pO2 42 VBG pH 7.43 VBG pCO2 36 L VBG HCO3 24.4 VBG Total CO2 25.0 VBG O2 Sat (Calc) 81.7 H VBG Base Excess -0.1 L VBG Potassium 3.9 Glucose 126 H Lactate 1.7 Sodium 132.0 Potassium Chloride 99.0 Carbon Dioxide Anion Gap BUN Creatinine Est GFR ( Amer) Est GFR (Non-Af Amer) Random Glucose Calcium Total Bilirubin AST ALT Alkaline Phosphatase Troponin I NT-Pro-B Natriuret Pep Total Protein Albumin Globulin Albumin/Globulin Ratio Venous Blood Potassium 3.9 Urine Color Lauren Urine Clarity Hazy Urine pH 5.0 Ur Specific [place] 1.017 Urine Protein 1+ H Urine Glucose (UA) Normal Urine Ketones Negative Urine Blood Negative Urine Nitrate Negative Urine Bilirubin Negative Urine Urobilinogen 4.0 H Ur Leukocyte Esterase 2+ H Urine WBC (Auto) 38 H Urine RBC (Auto) 3 Ur Squamous Epith Cells 7 H Hyaline Casts 3-5 H
[2018-04-04] MEDS: Piperacill/Tazo 3.375gm in Dex 3.375 GM/50 ML BAG IVPB SCH ×3 (04:00→18:03)
[2018-04-04 06:21] LABS: BASO % 0.3 % (0.0-2.0); EOS % 0.2 % (0.0-4.0); HEMOGLOBIN 8.6 g/dL (11.0-16.0); LYMPH # 0.2 K/uL (1.0-4.3); LYMPH % 5.3 % (20.0-40.0); MEAN CELL VOLUME 82.1 fL (81.0-99.0); MEAN CORPUSCULAR HEMOGLOBIN 27.2 pg (27.0-31.0); MEAN CORPUSCULAR HGB CONC 33.1 g/dL (33.0-37.0); MEAN PLATELET VOLUME 8.7 fL (7.2-11.7); MONO # 0.6 K/uL (0.0-0.8); MONO % 19.2 % (0.0-10.0); NEUT # 2.3 K/uL (1.8-7.0); PLATELET COUNT 71 K/uL (130-400); RBC 3.17 Mil/uL (3.80-5.20); RED CELL DISTRIBUTION WIDTH 18.5 % (11.5-14.5)
[2018-04-04 06:40] LABS: ALT/SGPT 61 U/L (9-52); AST/SGOT 44 U/L (14-36); BLOOD UREA NITROGEN 29 mg/dL (7-17); CALCIUM 8.5 mg/dl (8.6-10.4); GFR AFRICAN-AMERICAN > 60; GFR NON-AFRICAN AMERICAN 53
[2018-04-04 06:44] LABS: CK-MB 0.63 ng/mL (0.0-3.38)
[2018-04-04 09:56] LABS: TOTAL CELLS COUNTED 100
[2018-04-04 09:58] LABS: ANISOCYTOSIS SLIGHT; LYMPHOCYTE 6 % (20-40); MONOCYTE 19 % (0-10); NEUTROPHIL 75 % (50-75); PLATELET ESTIMATE DECREASED (NORMAL)
[2018-04-04 09:59] LABS: MICROCYTOSIS SLIGHT; POIKILOCYTOSIS SLIGHT
[2018-04-04 10:00] LABS: LARGE PLATELETS PRESENT; OVALOCYTES SLIGHT
[2018-04-04 10:01] LABS: HYPOCHROMIC SLIGHT
--- NOTE | 2018-04-04 10:21 | CP.CCUPN ---
CCU Subjective - Physician Review Subjective (Free Text): Patient feeling better. Patient's high fever resolving. Daughter at bedside provided info that patient was having chills and rigors at residential. Today patient timmy vidales, denies any chest pain or dizziness CCU Objective - Vital Signs / Intake & Output Vital Signs (Last 4 hours): Vital Signs Temp Pulse Resp BP Pulse Ox 04/04/18 09:24 100/63 04/04/18 09:01 108 H 15 100/63 98 04/04/18 09:00 134 H 18 100 04/04/18 08:01 124 H 23 100/52 L 100 04/04/18 08:00 98.9 F 135 H 23 100 04/04/18 07:01 125 H 23 101/58 L 100 04/04/18 07:00 116 H 22 100 Intake and Output (Last 8hrs): Intake & Output 04/03/18 04/04/18 04/04/18 22:59 06:59 14:59 Intake Total 75 80 120 Output Total 250 750 50 Balance -175 -670 70 Weight 158 lb 7 oz 158 lb 7 oz Intake: Intake, IV Amount 75 50 0 Right Forearm 75 50 0 Oral 30 120 Output: Urine 250 750 50 Urethral (Sheehan) 250 750 50 Emesis 0 Other: Voiding Method Indwelling Catheter # Bowel Movements 0 - Physical Exam Physical Exam Limitations: Negative for: Altered Mental Status Head: Positive for: Atraumatic, Normocephalic Extroacular Muscles: Positive for: EOMI Conjunctiva: Positive for: Normal Respiratory/Chest: Positive for: Clear to Auscultation, Good Air Exchange. Negative for: Respiratory Distress, Accessory Muscle Use, Wheezes Abdomen: Positive for: Normal Bowel Sounds. Negative for: Tenderness, Distention, Peritoneal Signs Lower Extremity: Positive for: Edema Neurological: Positive for: Speech Normal - Medications Active Medications: Active Medications Generic Name Dose Route Start Last Admin Trade Name Freq PRN Reason Stop Dose Admin Acetaminophen 650 mg 04/03/18 23:00 04/04/18 04:30 Tylenol 325mg Tab PO 650 mg Q6 PRN Administration Fever >100.4 F Apixaban 2.5 mg 04/04/18 10:00 04/04/18 09:24 Eliquis PO 2.5 mg BID KIMBERLEE Administration Diltiazem HCl 60 mg 04/04/18 10:00 04/04/18 09:21 Cardizem PO 60 mg QID KIMBERLEE Administration Furosemide 20 mg 04/04/18 10:00 04/04/18 09:24 Lasix IVP 20 mg BID KIMBERLEE Administration Piperacillin Sod/Tazobactam Sod 3.375 gm in 50 mls @ 100 mls/hr 04/04/18 03: 00 04/04/18 04:00 Zosyn 3.375 Gm Iv Premix IVPB 100 mls/hr Q8H KIMBERLEE Administration Protocol Ipratropium [place] 0.5 mg 04/04/18 14:00 Atrovent IH RQ6 KIMBERLEE Metoprolol Tartrate 50 mg 04/04/18 10:00 04/04/18 09:24 Lopressor PO 50 mg BID KIMBERLEE Administration Pantoprazole Sodium 40 mg 04/04/18 10:00 04/04/18 09:25 Protonix Inj IVP 40 mg DAILY KIMBERLEE Administration - Patient Studies Lab Studies: Lab Studies 04/04/18 04/04/18 04/03/18 Range/Units 06:14 06:14 18:29 WBC 3.0 L (4.8-10.8) K/uL RBC 3.17 L (3.80-5.20) Mil/uL Hgb 8.6 L (11.0-16.0) g/dL Hct 26.0 L (34.0-47.0) % MCV 82.1 (81.0-99.0) fL MCH 27.2 (27.0-31.0) pg MCHC 33.1 (33.0-37.0) g/dL RDW 18.5 H (11.5-14.5) % Plt Count 71 L D (130-400) K/uL MPV 8.7 (7.2-11.7) fL Neut % (Auto) 75.0 (50.0-75.0) % Lymph % (Auto) 5.3 L (20.0-40.0) % [place] % (Auto) 19.2 H (0.0-10.0) % Eos % (Auto) 0.2 (0.0-4.0) % Baso % (Auto) 0.3 (0.0-2.0) % Neut # (Auto) 2.3 (1.8-7.0) K/uL Lymph # (Auto) 0.2 L (1.0-4.3) K/uL [place] # (Auto) 0.6 (0.0-0.8) K/uL Eos # (Auto) 0.0 (0.0-0.7) K/uL Baso # (Auto) 0.0 (0.0-0.2) K/uL Neutrophils % (Manual) 75 (50-75) % Lymphocytes % (Manual) 6 L (20-40) % Monocytes % (Manual) 19 H (0-10) % Platelet Estimate Decreased L (NORMAL) Large Platelets Present Polychromasia Hypochromasia (manual) Slight Poikilocytosis (manual Slight Anisocytosis (manual) Slight Microcytosis (manual) Slight Macrocytosis (manual) Slight Ovalocytes Slight PT (9.7-12.2) SECONDS INR APTT (21-34) SECONDS pO2 42 (30-55) mm/Hg VBG pH 7.43 (7.32-7.43) VBG pCO2 36 L (40-60) mmHg VBG HCO3 24.4 mmol/L VBG Total CO2 25.0 (22-28) mmol/L VBG O2 Sat (Calc) 81.7 H (40-65) % VBG Base Excess -0.1 L (0.0-2.0) mmol/L VBG Potassium 3.9 (3.6-5.2) mmol/L Glucose 126 H (65-105) mg/dl Lactate 1.7 (0.7-2.1) mmol/L Sodium 133 132.0 (132-148) mmol/L Potassium 3.7 (3.6-5.2) mmol/L Chloride 97 L 99.0 (98-107) mmol/L Carbon Dioxide 25 (22-30) mmol/L Anion Gap 14 (10-20) BUN 29 H (7-17) mg/dL Creatinine 1.0 (0.7-1.2) mg/dL Est GFR ( Amer) > 60 Est GFR (Non-Af Amer) 53 Random Glucose 102 (65-105) mg/dL Calcium 8.5 L (8.6-10.4) mg/dl Phosphorus 4.1 (2.5-4.5) mg/dL Magnesium 1.6 (1.6-2.3) mg/dL Total Bilirubin 1.7 H (0.2-1.3) mg/dL AST 44 H D (14-36) U/L ALT 61 H (9-52) U/L Alkaline Phosphatase 243 H D (38-126) U/L Total Creatine Kinase 21 L (30-135) U/L CK-MB (Mass) 0.63 (0.0-3.38) ng/mL Troponin I 0.0330 (0.00-0.120) ng/mL NT-Pro-B Natriuret Pep (0-900) pg/mL Total Protein 6.0 L (6.3-8.3) g/dL Albumin 3.0 L (3.5-5.0) g/dL Globulin 3.0 (2.2-3.9) gm/dL Albumin/Globulin Ratio 1.0 (1.0-2.1) Venous Blood Potassium 3.9 (3.6-5.2) mmol/L Urine Color (YELLOW) Urine Clarity (Clear) Urine pH (5.0-8.0) Ur Specific [place] (1.003-1.030) Urine Protein (NEGATIVE) mg/dL Urine Glucose (UA) (Normal) mg/dL Urine Ketones (NEGATIVE) mg/dL Urine Blood (NEGATIVE) Urine Nitrate (NEGATIVE) Urine Bilirubin (NEGATIVE) Urine Urobilinogen (0.2-1.0) mg/dL Ur Leukocyte Esterase (Negative) Katie/uL Urine WBC (Auto) (0-5) /hpf Urine RBC (Auto) (0-3) /hpf Ur Squamous Epith Cells (0-5) /hpf Hyaline Casts (0-2) /lpf 04/03/18 04/03/18 04/03/18 Range/Units 16:56 16:38 16:38 WBC (4.8-10.8) K/uL RBC (3.80-5.20) Mil/uL Hgb (11.0-16.0) g/dL Hct (34.0-47.0) % MCV (81.0-99.0) fL MCH (27.0-31.0) pg MCHC (33.0-37.0) g/dL RDW (11.5-14.5) % Plt Count (130-400) K/uL MPV (7.2-11.7) fL Neut % (Auto) (50.0-75.0) % Lymph % (Auto) (20.0-40.0) % [place] % (Auto) (0.0-10.0) % Eos % (Auto) (0.0-4.0) % Baso % (Auto) (0.0-2.0) % Neut # (Auto) (1.8-7.0) K/uL Lymph # (Auto) (1.0-4.3) K/uL [place] # (Auto) (0.0-0.8) K/uL Eos # (Auto) (0.0-0.7) K/uL Baso # (Auto) (0.0-0.2) K/uL Neutrophils % (Manual) (50-75) % Lymphocytes % (Manual) (20-40) % Monocytes % (Manual) (0-10) % Platelet Estimate (NORMAL) Large Platelets Polychromasia Hypochromasia (manual) Poikilocytosis (manual Anisocytosis (manual) Microcytosis (manual) Macrocytosis (manual) Ovalocytes PT 22.7 H (9.7-12.2) SECONDS INR 2.1 APTT 39 H (21-34) SECONDS pO2 (30-55) mm/Hg VBG pH (7.32-7.43) VBG pCO2 (40-60) mmHg VBG HCO3 mmol/L VBG Total CO2 (22-28) mmol/L VBG O2 Sat (Calc) (40-65) % VBG Base Excess (0.0-2.0) mmol/L VBG Potassium (3.6-5.2) mmol/L Glucose (65-105) mg/dl Lactate (0.7-2.1) mmol/L Sodium 134 (132-148) mmol/L Potassium 4.2 (3.6-5.2) mmol/L Chloride 96 L (98-107) mmol/L Carbon Dioxide 25 (22-30) mmol/L Anion Gap 18 (10-20) BUN 32 H (7-17) mg/dL Creatinine 1.1 (0.7-1.2) mg/dL Est GFR ( Amer) 57 Est GFR (Non-Af Amer) 47 Random Glucose 127 H (65-105) mg/dL Calcium 8.8 (8.6-10.4) mg/dl Phosphorus (2.5-4.5) mg/dL Magnesium (1.6-2.3) mg/dL Total Bilirubin 1.8 H (0.2-1.3) mg/dL AST 59 H D (14-36) U/L ALT 65 H D (9-52) U/L Alkaline Phosphatase 318 H (38-126) U/L Total Creatine Kinase (30-135) U/L CK-MB (Mass) (0.0-3.38) ng/mL Troponin I 0.0360 (0.00-0.120) ng/mL NT-Pro-B Natriuret Pep 74394 H (0-900) pg/mL Total Protein 6.6 (6.3-8.3) g/dL Albumin 3.6 (3.5-5.0) g/dL Globulin 3.0 (2.2-3.9) gm/dL Albumin/Globulin Ratio 1.2 (1.0-2.1) Venous Blood Potassium (3.6-5.2) mmol/L Urine Color Lauren (YELLOW) Urine Clarity Hazy (Clear) Urine pH 5.0 (5.0-8.0) Ur Specific [place] 1.017 (1.003-1.030) Urine Protein 1+ H (NEGATIVE) mg/dL Urine Glucose (UA) Normal (Normal) mg/dL Urine Ketones Negative (NEGATIVE) mg/dL Urine Blood Negative (NEGATIVE) Urine Nitrate Negative (NEGATIVE) Urine Bilirubin Negative (NEGATIVE) Urine Urobilinogen 4.0 H (0.2-1.0) mg/dL Ur Leukocyte Esterase 2+ H (Negative) Katie/uL Urine WBC (Auto) 38 H (0-5) /hpf Urine RBC (Auto) 3 (0-3) /hpf Ur Squamous Epith Cells 7 H (0-5) /hpf Hyaline Casts 3-5 H (0-2) /lpf 04/03/18 Range/Units 16:38 WBC 4.2 L (4.8-10.8) K/uL RBC 3.60 L (3.80-5.20) Mil/uL Hgb 9.6 L (11.0-16.0) g/dL Hct 29.4 L (34.0-47.0) % MCV 81.9 (81.0-99.0) fL MCH 26.8 L (27.0-31.0) pg MCHC 32.7 L (33.0-37.0) g/dL RDW 18.8 H (11.5-14.5) % Plt Count 91 L (130-400) K/uL MPV 8.4 (7.2-11.7) fL Neut % (Auto) 73.8 (50.0-75.0) % Lymph % (Auto) 6.0 L (20.0-40.0) % [place] % (Auto) 19.4 H (0.0-10.0) % Eos % (Auto) 0.4 (0.0-4.0) % Baso % (Auto) 0.4 (0.0-2.0) % Neut # (Auto) 3.1 (1.8-7.0) K/uL Lymph # (Auto) 0.2 L (1.0-4.3) K/uL [place] # (Auto) 0.8 (0.0-0.8) K/uL Eos # (Auto) 0.0 (0.0-0.7) K/uL Baso # (Auto) 0.0 (0.0-0.2) K/uL Neutrophils % (Manual) 75 (50-75) % Lymphocytes % (Manual) 6 L (20-40) % Monocytes % (Manual) 19 H (0-10) % Platelet Estimate Decreased L (NORMAL) Large Platelets Polychromasia Slight Hypochromasia (manual) Poikilocytosis (manual Anisocytosis (manual) Slight Microcytosis (manual) Macrocytosis (manual) Ovalocytes Slight PT (9.7-12.2) SECONDS INR APTT (21-34) SECONDS pO2 (30-55) mm/Hg VBG pH (7.32-7.43) VBG pCO2 (40-60) mmHg VBG HCO3 mmol/L VBG Total CO2 (22-28) mmol/L VBG O2 Sat (Calc) (40-65) % VBG Base Excess (0.0-2.0) mmol/L VBG Potassium (3.6-5.2) mmol/L Glucose (65-105) mg/dl Lactate (0.7-2.1) mmol/L Sodium (132-148) mmol/L Potassium (3.6-5.2) mmol/L Chloride (98-107) mmol/L Carbon Dioxide (22-30) mmol/L Anion Gap (10-20) BUN (7-17) mg/dL Creatinine (0.7-1.2) mg/dL Est GFR ( Amer) Est GFR (Non-Af Amer) Random Glucose (65-105) mg/dL Calcium (8.6-10.4) mg/dl Phosphorus (2.5-4.5) mg/dL Magnesium (1.6-2.3) mg/dL Total Bilirubin (0.2-1.3) mg/dL AST (14-36) U/L ALT (9-52) U/L Alkaline Phosphatase (38-126) U/L Total Creatine Kinase (30-135) U/L CK-MB (Mass) (0.0-3.38) ng/mL Troponin I (0.00-0.120) ng/mL NT-Pro-B Natriuret Pep (0-900) pg/mL Total Protein (6.3-8.3) g/dL Albumin (3.5-5.0) g/dL Globulin (2.2-3.9) gm/dL Albumin/Globulin Ratio (1.0-2.1) Venous Blood Potassium (3.6-5.2) mmol/L Urine Color (YELLOW) Urine Clarity (Clear) Urine pH (5.0-8.0) Ur Specific [place] (1.003-1.030) Urine Protein (NEGATIVE) mg/dL Urine Glucose (UA) (Normal) mg/dL Urine Ketones (NEGATIVE) mg/dL Urine Blood (NEGATIVE) Urine Nitrate (NEGATIVE) Urine Bilirubin (NEGATIVE) Urine Urobilinogen (0.2-1.0) mg/dL Ur Leukocyte Esterase (Negative) Katie/uL Urine WBC (Auto) (0-5) /hpf Urine RBC (Auto) (0-3) /hpf Ur Squamous Epith Cells (0-5) /hpf Hyaline Casts (0-2) /lpf Laboratory Results - last 24 hr 04/03/18 04/03/18 04/03/18 16:38 16:38 16:38 WBC 4.2 L RBC 3.60 L Hgb 9.6 L Hct 29.4 L MCV 81.9 MCH 26.8 L MCHC 32.7 L RDW 18.8 H Plt Count 91 L MPV 8.4 Neut % (Auto) 73.8 Lymph % (Auto) 6.0 L [place] % (Auto) 19.4 H Eos % (Auto) 0.4 Baso % (Auto) 0.4 Neut # (Auto) 3.1 Lymph # (Auto) 0.2 L [place] # (Auto) 0.8 Eos # (Auto) 0.0 Baso # (Auto) 0.0 Neutrophils % (Manual) 75 Lymphocytes % (Manual) 6 L Monocytes % (Manual) 19 H Platelet Estimate Decreased L Large Platelets Polychromasia Slight Hypochromasia (manual) Poikilocytosis (manual Anisocytosis (manual) Slight Microcytosis (manual) Macrocytosis (manual) Ovalocytes Slight PT 22.7 H INR 2.1 APTT 39 H pO2 VBG pH VBG pCO2 VBG HCO3 VBG Total CO2 VBG O2 Sat (Calc) VBG Base Excess VBG Potassium Glucose Lactate Sodium 134 Potassium 4.2 Chloride 96 L Carbon Dioxide 25 Anion Gap 18 BUN 32 H Creatinine 1.1 Est GFR ( Amer) 57 Est GFR (Non-Af Amer) 47 Random Glucose 127 H Calcium 8.8 Phosphorus Magnesium Total Bilirubin 1.8 H AST 59 H D ALT 65 H D Alkaline Phosphatase 318 H Total Creatine Kinase CK-MB (Mass) Troponin I 0.0360 NT-Pro-B Natriuret Pep 62036 H Total Protein 6.6 Albumin 3.6 Globulin 3.0 Albumin/Globulin Ratio 1.2 Venous Blood Potassium Urine Color Urine Clarity Urine pH Ur Specific [place] Urine Protein Urine Glucose (UA) Urine Ketones Urine Blood Urine Nitrate Urine Bilirubin Urine Urobilinogen Ur Leukocyte Esterase Urine WBC (Auto) Urine RBC (Auto) Ur Squamous Epith Cells Hyaline Casts 04/03/18 04/03/18 04/04/18 16:56 18:29 06:14 WBC 3.0 L RBC 3.17 L Hgb 8.6 L Hct 26.0 L MCV 82.1 MCH 27.2 MCHC 33.1 RDW 18.5 H Plt Count 71 L D MPV 8.7 Neut % (Auto) 75.0 Lymph % (Auto) 5.3 L [place] % (Auto) 19.2 H Eos % (Auto) 0.2 Baso % (Auto) 0.3 Neut # (Auto) 2.3 Lymph # (Auto) 0.2 L [place] # (Auto) 0.6 Eos # (Auto) 0.0 Baso # (Auto) 0.0 Neutrophils % (Manual) 75 Lymphocytes % (Manual) 6 L Monocytes % (Manual) 19 H Platelet Estimate Decreased L Large Platelets Present Polychromasia Hypochromasia (manual) Slight Poikilocytosis (manual Slight Anisocytosis (manual) Slight Microcytosis (manual) Slight Macrocytosis (manual) Slight Ovalocytes Slight PT INR APTT pO2 42 VBG pH 7.43 VBG pCO2 36 L VBG HCO3 24.4 VBG Total CO2 25.0 VBG O2 Sat (Calc) 81.7 H VBG Base Excess -0.1 L VBG Potassium 3.9 Glucose 126 H Lactate 1.7 Sodium 132.0 Potassium Chloride 99.0 Carbon Dioxide Anion Gap BUN Creatinine Est GFR ( Amer) Est GFR (Non-Af Amer) Random Glucose Calcium Phosphorus Magnesium Total Bilirubin AST ALT Alkaline Phosphatase Total Creatine Kinase CK-MB (Mass) Troponin I NT-Pro-B Natriuret Pep Total Protein Albumin Globulin Albumin/Globulin Ratio Venous Blood Potassium 3.9 Urine Color Lauren Urine Clarity Hazy Urine pH 5.0 Ur Specific [place] 1.017 Urine Protein 1+ H Urine Glucose (UA) Normal Urine Ketones Negative Urine Blood Negative Urine Nitrate Negative Urine Bilirubin Negative Urine Urobilinogen 4.0 H Ur Leukocyte Esterase 2+ H Urine WBC (Auto) 38 H Urine RBC (Auto) 3 Ur Squamous Epith Cells 7 H Hyaline Casts 3-5 H 04/04/18 06:14 WBC RBC Hgb Hct MCV MCH MCHC RDW Plt Count MPV Neut % (Auto) Lymph % (Auto) [place] % (Auto) Eos % (Auto) Baso % (Auto) Neut # (Auto) Lymph # (Auto) [place] # (Auto) Eos # (Auto) Baso # (Auto) Neutrophils % (Manual) Lymphocytes % (Manual) Monocytes % (Manual) Platelet Estimate Large Platelets Polychromasia Hypochromasia (manual) Poikilocytosis (manual Anisocytosis (manual) Microcytosis (manual) Macrocytosis (manual) Ovalocytes PT INR APTT pO2 VBG pH VBG pCO2 VBG HCO3 VBG Total CO2 VBG O2 Sat (Calc) VBG Base Excess VBG Potassium Glucose Lactate Sodium 133 Potassium 3.7 Chloride 97 L Carbon Dioxide 25 Anion Gap 14 BUN 29 H Creatinine 1.0 Est GFR ( Amer) > 60 Est GFR (Non-Af Amer) 53 Random Glucose 102 Calcium 8.5 L Phosphorus 4.1 Magnesium 1.6 Total Bilirubin 1.7 H AST 44 H D ALT 61 H Alkaline Phosphatase 243 H D Total Creatine Kinase 21 L CK-MB (Mass) 0.63 Troponin I 0.0330 NT-Pro-B Natriuret Pep Total Protein 6.0 L Albumin 3.0 L Globulin 3.0 Albumin/Globulin Ratio 1.0 Venous Blood Potassium Urine Color Urine Clarity Urine pH Ur Specific [place] Urine Protein Urine Glucose (UA) Urine Ketones Urine Blood Urine Nitrate Urine Bilirubin Urine Urobilinogen Ur Leukocyte Esterase Urine WBC (Auto) Urine RBC (Auto) Ur Squamous Epith Cells Hyaline Casts EKG/Cardiology Studies: Cardiology / EKG Studies 04/03/18 16:32 ELECTROCARDIOGRAM Stat Comment: Mode Of Transportation: BED Reason For Exam: SOB Review of Systems - Constitutional Constitutional: absent: Fever, Chills Critical Care Progress Note - Ventilator Checklist Head of Bed 30 Degrees: Yes PUD Prophalyxis: Yes DVT Prophylaxis: Yes - Nutrition Nutrition: Nutrition Category Date Time Status Heart Healthy Diet [DIET] Diets 04/04/18 Breakfast Active Assessment/Plan - Assessment and Plan (Free Text) Assessment: 87 year old female with PMHx of Atrial Fibrillation, CAD s/p LAD stent, with Multi-vessel Disease, HTN, Pacemaker, and s/p TAVR x2 presents to the ED with SOB and lower leg swelling -SOB/Pulmonary congestion: continue lasix, bi-pap PRN, lower legs less swollen, patient speaking in 3-4 wor d sentences -h/o Upper Gi bleed: monitor serial cbc, FOB pending -Atrial Fibrillation restart: increase dose of cardizem 50 mg q8hrs, add lopressor (attempt to restart previous dosage while in ICU) -CAD/A-fib/h/o TAVR: will benefit from Antiplatelets, INR 2.1 -sepsis source likely urine: continue start zosyn and doxycycline, monitor BP, keep MAP >65 -h/o OLIVIA - resolved -PUD ppx: PPI Q12 - SCDs, INR 2.1 started on puree diet Patient much improved today -will d/c valente, PT/OT -d/w PMD - Date & Time Date: 04/04/18 Time: 10:24
--- NOTE | 2018-04-04 13:04 | CARD ---
APPROVED REPORT EXAM: Two-dimensional and M-mode echocardiogram with Doppler and color Doppler. Other Information Quality : AverageRhythm : INDICATION Dyspnea Atrial Fibrillation Syncope Congestive Heart Failure Palpitations R/O ENDOCARDITIS RISK FACTORS Hypertension 2D DIMENSIONS IVSd1.6 (0.7-1.1cm)Aortic Root (2D)3.6 (2.0-3.7cm) LVDd4.1 (3.9-5.9cm)LVOT Diameter2.0 (1.8-2.4cm) PWd1.4 (0.7-1.1cm)LVDs3.2 (2.5-4.0cm) FS (%) 21.9 %LVEF (%)44.6 (>50%) M-Mode DIMENSIONS Left Atrium (MM)5.32 (2.5-4.0cm)Aortic Root2.10 (2.2-3.7cm) Aortic Cusp Exc.0.70 (1.5-2.0cm) Aortic Valve AoV Peak Sjivknps755.1cm/sAoV VTI53.1cmAO Peak GR.50mmHg LVOT Peak Iusbosrp241.8cm/sLVOT VTI18.18cmAO Mean GR.25mmHg SURESH (VMAX)0.07tj6QNQ (VTI)1.05cm2 Mitral Valve MV E Tqfjqijh344.9cm/sMV A Wwdmiwgd15.8cm/sMV FVY28sj E/A ratio2.4MVA (PHT)3.87cm2 TDI E/Lateral E'0.0E/Medial E'0.0 Pulmonary Valve PV Peak Hxktpcqe871.0cm/sPV Peak Grad.5mmHg Tricuspid Valve TR Peak Xorqamjd854kj/sTR Peak Gr.60wlXhUNRO25gcIp LEFT VENTRICLE The left ventricle is normal size. There is mild to moderate concentric left ventricular hypertrophy. The systolic function is mildly impaired. Septal hypokinesis RIGHT VENTRICLE The right ventricle is normal size. There is normal right ventricular wall thickness. The right ventricular systolic function is normal. ATRIA The left atrium is moderately dilated. The right atrium is mildly dilated. AORTIC VALVE The aortic valve is moderately calcified. No aortic regurgitation is present. There is moderate valvular aortic stenosis. MITRAL VALVE Mitral annular calcification is severe. Mitral regurgitation is moderate. TRICUSPID VALVE There is moderate tricuspid regurgitation. There is mild pulmonary hypertension. GREAT VESSELS The aortic root is normal in size. PERICARDIAL EFFUSION There is no pericardial effusion. <Conclusion> The left ventricle is normal size. There is mild to moderate concentric left ventricular hypertrophy. The systolic function is mildly impaired. Septal hypokinesis There is moderate valvular aortic stenosis. Mitral regurgitation is moderate. There is moderate tricuspid regurgitation. There is mild pulmonary hypertension.
[2018-04-04] MEDS: Ipratropium 0.02% Inhal Soln (0.5 mg/2.5 ml) UD IH SCH ×2 (13:18→20:36)
--- NOTE | 2018-04-04 15:51 | CP.PCM.PN ---
Subjective - Date & Time of Evaluation Date of Evaluation: 04/04/18 Time of Evaluation: 15:49 - Subjective Subjective: Patient now on CPAP. But she is awake and responding. This morning she was on cannula. Able to drink some fluids. Cough noted. She denies any chest pain, minimal exertional dyspnea noted. Bilateral pedal edema noted On examination: Vital signs stable. Heart rate is controlled better than yesterday. Regular heart sound noted. Abdomen soft. Edema bilaterally noted Labs reviewed Low platelets, low hemoglobin noted. We will monitor the numbers again in the morning Assessment and recommendation: 87-year-old female with a history of atrial fibrillation, aortic valve replacement, admitted recently with anemia on anticoagulation. Patient now admitted with acute possible decompensated heart failure. Urinary tract infection. On antibiotic. We will taper the antibiotic wound culture is available. Awaiting for bone marrow biopsy, will get hematology evaluation if needed. We will monitor the patient. Objective - Vital Signs/Intake and Output Vital Signs (last 24 hours): Temp Pulse Resp BP Pulse Ox 98.9 F 102 H 34 H 126/65 81 L 04/04/18 08:00 04/04/18 14:01 04/04/18 14:01 04/04/18 14:01 04/04/18 14:01 Intake and Output: 04/04/18 04/04/18 06:59 18:59 Intake Total 155 780 Output Total 1000 750 Balance -845 30 - Medications Medications: Current Medications Acetaminophen (Tylenol 325mg Tab) 650 mg PO Q6 PRN PRN Reason: Fever >100.4 F Last Admin: 04/04/18 04:30 Dose: 650 mg Apixaban (Eliquis) 2.5 mg PO BID [facility] Last Admin: 04/04/18 09:24 Dose: 2.5 mg Diltiazem HCl (Cardizem) 60 mg PO QID [facility] Last Admin: 04/04/18 13:53 Dose: 60 mg Furosemide (Lasix) 20 mg IVP BID [facility] Last Admin: 04/04/18 09:24 Dose: 20 mg Piperacillin Sod/Tazobactam Sod (Zosyn 3.375 Gm Iv Premix) 3.375 gm in 50 mls @ 100 mls/hr IVPB Q8H [facility] PRN Reason: Protocol Last Admin: 04/04/18 11:50 Dose: 100 mls/hr Doxycycline Hyclate 100 mg/ (Sodium Chloride) 100 mls @ 100 mls/hr IVPB Q12H [facility] PRN Reason: Protocol Last Admin: 04/04/18 12:30 Dose: 100 mls/hr Ipratropium [place] (Atrovent) 0.5 mg IH RQ6 [facility] Last Admin: 04/04/18 13:18 Dose: 0.5 mg Metoprolol Tartrate (Lopressor) 50 mg PO BID [facility] Last Admin: 04/04/18 09:24 Dose: 50 mg Pantoprazole Sodium (Protonix Inj) 40 mg IVP DAILY [facility] Last Admin: 04/04/18 09:25 Dose: 40 mg - Labs Labs: 04/04/18 06:14 04/04/18 06:14 PT 22.7 SECONDS (9.7-12.2) H 04/03/18 16:38 INR 2.1 04/03/18 16:38 APTT 39 SECONDS (21-34) H 04/03/18 16:38
--- NOTE | 2018-04-04 16:03 | RAD ---
HISTORY: CHF COMPARISON: Comparison made with prior chest radiograph 04/03/2018 FINDINGS: LUNGS: Previously noted pulmonary edema/CHF improved. PLEURA: Small left-sided effusion and suspected tiny right-sided effusion. CARDIOVASCULAR: Heart OSSEOUS STRUCTURES: No significant abnormalities. VISUALIZED UPPER ABDOMEN: Normal. OTHER FINDINGS: None. IMPRESSION: Improved CHF. Small left-sided effusion with suspected tiny right effusion
--- NOTE | 2018-04-04 22:52 | CP.PCM.PN ---
Subjective - Date & Time of Evaluation Date of Evaluation: 04/04/18 Time of Evaluation: 20:05 - Subjective Subjective: Patient seen and evaluated feels better Diastolic CHF s/p TAVR x 2 CAD s/p stents Bradycardiac s/p PPM A Fib Anticoagulation held due to anemia Objective - Vital Signs/Intake and Output Vital Signs (last 24 hours): Temp Pulse Resp BP Pulse Ox 97.9 F 99 H 23 89/51 L 99 04/04/18 20:00 04/04/18 22:07 04/04/18 22:01 04/04/18 22:01 04/04/18 22:01 Intake and Output: 04/04/18 04/05/18 18:59 06:59 Intake Total 1070 420 Output Total 1110 Balance -40 420 - Medications Medications: Current Medications Acetaminophen (Tylenol 325mg Tab) 650 mg PO Q6 PRN PRN Reason: Fever >100.4 F Last Admin: 04/04/18 21:22 Dose: 650 mg Apixaban (Eliquis) 2.5 mg PO BID [facility] Last Admin: 04/04/18 17:30 Dose: 2.5 mg Diltiazem HCl (Cardizem) 60 mg PO QID [facility] Last Admin: 04/04/18 21:22 Dose: 60 mg Furosemide (Lasix) 20 mg IVP BID [facility] Last Admin: 04/04/18 17:30 Dose: 20 mg Piperacillin Sod/Tazobactam Sod (Zosyn 3.375 Gm Iv Premix) 3.375 gm in 50 mls @ 100 mls/hr IVPB Q8H [facility] PRN Reason: Protocol Last Admin: 04/04/18 18:03 Dose: 100 mls/hr Doxycycline Hyclate 100 mg/ (Sodium Chloride) 100 mls @ 100 mls/hr IVPB Q12H [facility] PRN Reason: Protocol Last Admin: 04/04/18 12:30 Dose: 100 mls/hr Ipratropium [place] (Atrovent) 0.5 mg IH RQ6 [facility] Last Admin: 04/04/18 20:36 Dose: 0.5 mg Metoprolol Tartrate (Lopressor) 50 mg PO BID [facility] Last Admin: 04/04/18 17:30 Dose: 50 mg Pantoprazole Sodium (Protonix Inj) 40 mg IVP DAILY [facility] Last Admin: 04/04/18 09:25 Dose: 40 mg - Labs Labs: 04/04/18 06:14 04/04/18 06:14 PT 22.7 SECONDS (9.7-12.2) H 04/03/18 16:38 INR 2.1 04/03/18 16:38 APTT 39 SECONDS (21-34) H 04/03/18 16:38
[2018-04-05] MEDS: Ipratropium 0.02% Inhal Soln (0.5 mg/2.5 ml) UD IH SCH ×4 (02:00→19:13)
[2018-04-05] MEDS: Piperacill/Tazo 3.375gm in Dex 3.375 GM/50 ML BAG IVPB SCH ×3 (03:21→18:47)
[2018-04-05 06:22] LABS: BASO % 0.3 % (0.0-2.0); EOS % 0.6 % (0.0-4.0); HEMOGLOBIN 8.2 g/dL (11.0-16.0); LYMPH # 0.1 K/uL (1.0-4.3); LYMPH % 6.5 % (20.0-40.0); MEAN CELL VOLUME 82.2 fL (81.0-99.0); MEAN CORPUSCULAR HEMOGLOBIN 26.8 pg (27.0-31.0); MEAN CORPUSCULAR HGB CONC 32.6 g/dL (33.0-37.0); MEAN PLATELET VOLUME 8.8 fL (7.2-11.7); MONO # 0.5 K/uL (0.0-0.8); MONO % 21.3 % (0.0-10.0); NEUT # 1.6 K/uL (1.8-7.0); NEUT % 71.3 % (50.0-75.0); PLATELET COUNT 61 K/uL (130-400); RBC 3.06 Mil/uL (3.80-5.20); RED CELL DISTRIBUTION WIDTH 18.8 % (11.5-14.5); WHITE BLOOD COUNT 2.2 K/uL (4.8-10.8)
[2018-04-05 06:39] LABS: ALBUMIN 2.7 g/dL (3.5-5.0); CALCIUM 8.2 mg/dl (8.6-10.4)
[2018-04-05] MEDS: Magnesium Sulfate 1 gm in D5W 1 GM/100 ML BAG IVPB SCH ×2 (07:43→08:46)
[2018-04-05] MEDS: Potassium Chloride 20 mEq/15 ml LIQ UD PO SCH ×3 (08:23→18:49)
[2018-04-05 08:27] LABS: EOSINOPHIL 1 % (0-4); LYMPHOCYTE 5 % (20-40); MONOCYTE 17 % (0-10); NEUTROPHIL 77 % (50-75); TOTAL CELLS COUNTED 100
[2018-04-05 08:28] LABS: ANISOCYTOSIS SLIGHT; PLATELET ESTIMATE DECREASED (NORMAL)
[2018-04-05 08:29] LABS: HYPOCHROMIC SLIGHT; OVALOCYTES SLIGHT
[2018-04-05] MEDS: diltiaZEM 240 mg/24 Hours CD Cap PO SCH ×2 (08:45→09:20)
[2018-04-05] MEDS ORDERED: Magnesium Hydroxide Susp 30 ml UD PO ONE (10:09)
--- NOTE | 2018-04-05 10:39 | CP.PCM.PN ---
Subjective - Date & Time of Evaluation Date of Evaluation: 04/05/18 Time of Evaluation: 08:35 - Subjective Subjective: Patient feeling better. Denies any complaints Objective - Vital Signs/Intake and Output Vital Signs (last 24 hours): Temp Pulse Resp BP Pulse Ox 99.6 F 115 H 35 H 113/67 97 04/05/18 10:00 04/05/18 10:01 04/05/18 10:01 04/05/18 10:12 04/05/18 10:01 Intake and Output: 04/05/18 04/05/18 06:59 18:59 Intake Total 670 570 Output Total 140 50 Balance 530 520 - Medications Medications: Current Medications Acetaminophen (Tylenol 325mg Tab) 650 mg PO Q6 PRN PRN Reason: Fever >100.4 F Last Admin: 04/04/18 21:22 Dose: 650 mg Diltiazem HCl (Cardizem Cd) 240 mg PO DAILY [facility] Last Admin: 04/05/18 09:20 Dose: Not Given Docusate Sodium (Colace) 100 mg PO DAILY [facility] Ferrous Sulfate (Feosol) 325 mg PO DAILY [facility] Furosemide (Lasix) 20 mg IVP BID [facility] Last Admin: 04/05/18 10:12 Dose: 20 mg Piperacillin Sod/Tazobactam Sod (Zosyn 3.375 Gm Iv Premix) 3.375 gm in 50 mls @ 100 mls/hr IVPB Q8H [facility] PRN Reason: Protocol Last Admin: 04/05/18 03:21 Dose: 100 mls/hr Doxycycline Hyclate 100 mg/ (Sodium Chloride) 100 mls @ 100 mls/hr IVPB Q12H [facility] PRN Reason: Protocol Last Admin: 04/04/18 23:15 Dose: 100 mls/hr Ipratropium [place] (Atrovent) 0.5 mg IH RQ6 [facility] Last Admin: 04/04/18 20:36 Dose: 0.5 mg Lidocaine (Lidoderm) 1 ea TD DAILY [facility] Metoprolol Tartrate (Lopressor) 50 mg PO Q12H [facility] Pantoprazole Sodium (Protonix Inj) 40 mg IVP DAILY [facility] Last Admin: 04/05/18 10:12 Dose: 40 mg Potassium Chloride (Potassium Chloride Oral Soln) 40 meq PO Q6H [facility] Stop: 04/05/18 19:31 Last Admin: 04/05/18 08:23 Dose: 40 meq Senna/Docusate Sodium (Senokot S 50 Mg-8.6 Mg) 1 tab PO HS [facility] - Labs Labs: 04/05/18 06:15 04/05/18 06:12 PT 22.7 SECONDS (9.7-12.2) H 04/03/18 16:38 INR 2.1 04/03/18 16:38 APTT 39 SECONDS (21-34) H 04/03/18 16:38 - Head Exam Head Exam: ATRAUMATIC - ENT Exam ENT Exam: Mucous Membranes Moist - Respiratory Exam Respiratory Exam: Clear to Ausculation Bilateral - Cardiovascular Exam Cardiovascular Exam: Irregular Rhythm, +S1, +S2 - GI/Abdominal Exam GI & Abdominal Exam: Normal Bowel Sounds - Extremities Exam Extremities Exam: Pedal Edema - Neurological Exam Neurological Exam: Alert, Awake, Oriented x3 - Skin Skin Exam: Normal Color Assessment and Plan - Assessment and Plan (Free Text) Assessment: 87 year old female with PMHx of Atrial Fibrillation, CAD s/p LAD stent, with Multi-vessel Disease, HTN, Pacemaker, and s/p TAVR x2 presents to the ED with SOB and lower leg swelling -SOB/Pulmonary congestion: continue lasix, bi-pap PRN, patient speaking in 8-10 word sentences -h/o Upper Gi bleed: monitor serial cbc, hb dropping will hold eliquis with low platelets -Atrial Fibrillation HR controlled: CD cardizem and continue lopressor q12 -CAD/A-fib/h/o TAVR: will benefit from Antiplatelets, pending echo (r/o valvular disorder) -sepsis source likely urine: continue start zosyn and doxycycline, monitor BP, keep MAP >65 -h/o OLIVIA - resolved -thrombocytopenia: chronic, heme. onc follow up, no acute signs of bleeding, continue to monitor -PUD ppx: PPI Q12 - SCDs, INR 2.1 started on puree diet -PT OT Patient remains hemodynamically stable.
[2018-04-05] MEDS: Lidocaine 5% Patch TD SCH (11:03)
--- NOTE | 2018-04-05 19:47 | CP.PCM.PN ---
Subjective - Date & Time of Evaluation Date of Evaluation: 04/05/18 Time of Evaluation: 19:47 - Subjective Subjective: Patient is currently having increasing SOB . Without BiPAP patient is tachypneic. Tachycardic also noted. She was able to eat slightly, but increasing shortness of breath noted even with minimal exertion. Placed on BiPAP immediately. Vital signs: Atrial fibrillation with a heart rate 122. Saturation 96%. On 4 L of nasal cannula. Blood pressure is 122/77. Decreased air entry bilaterally noted. Abdominal tenderness negative, pedal edema plus Labs reviewed Potassium 3.2 BUN 30 creatinine 1.1 calcium 8.2 liver function test is slightly elevated WBC 2.2 hemoglobin 8.2 platelet is 61 Currently on antibiotic Zosyn and doxycycline. Assessment and recommendation: Patient is having pancytopenia, mild elevation of the liver enzymes. Underlying malignancy cannot be ruled out. Currently pending the bone marrow biopsy will get it tomorrow. Meanwhile I spoke to the patient's son, will get 1 unit of blood transfusion because of the tachycardia. Also Lasix ordered. Closely will monitor. Respiratory monitoring. We will get a hematology reevaluation again. We will follow-up the patient Poor prognosis Objective - Vital Signs/Intake and Output Vital Signs (last 24 hours): Temp Pulse Resp BP Pulse Ox 99.1 F 129 H 36 H 131/72 97 04/05/18 18:00 04/05/18 19:01 04/05/18 19:01 04/05/18 19:01 04/05/18 19:01 Intake and Output: 04/05/18 04/06/18 18:59 06:59 Intake Total 1040 Output Total 380 Balance 660 - Medications Medications: Current Medications Acetaminophen (Tylenol 325mg Tab) 650 mg PO Q6 PRN PRN Reason: Fever >100.4 F Last Admin: 04/04/18 21:22 Dose: 650 mg Docusate Sodium (Colace) 100 mg PO DAILY [facility] Last Admin: 04/05/18 10:38 Dose: 100 mg Ferrous Sulfate (Feosol) 325 mg PO DAILY [facility] Last Admin: 04/05/18 11:04 Dose: 325 mg Furosemide (Lasix) 20 mg IVP BID [facility] Last Admin: 04/05/18 18:49 Dose: 20 mg Piperacillin Sod/Tazobactam Sod (Zosyn 3.375 Gm Iv Premix) 3.375 gm in 50 mls @ 100 mls/hr IVPB Q8H [facility] PRN Reason: Protocol Last Admin: 04/05/18 18:47 Dose: 100 mls/hr Doxycycline Hyclate 100 mg/ (Sodium Chloride) 100 mls @ 100 mls/hr IVPB Q12H [facility] PRN Reason: Protocol Last Admin: 04/05/18 11:43 Dose: 100 mls/hr Diltiazem HCl 125 mg/ Dextrose 125 mls @ 5 mls/hr IV .Q24H [facility]; 5 MG/HR PRN Reason: Protocol Last Admin: 04/05/18 19:46 Dose: 5 mg/hr, 5 mls/hr Ipratropium [place] (Atrovent) 0.5 mg IH RQ6 [facility] Last Admin: 04/05/18 19:13 Dose: 0.5 mg Lidocaine (Lidoderm) 1 ea TD DAILY [facility] Last Admin: 04/05/18 11:03 Dose: 1 ea Metoprolol Tartrate (Lopressor) 50 mg PO Q12H [facility] Pantoprazole Sodium (Protonix Inj) 40 mg IVP DAILY [facility] Last Admin: 04/05/18 10:12 Dose: 40 mg Senna/Docusate Sodium (Senokot S 50 Mg-8.6 Mg) 1 tab PO HS [facility] - Labs Labs: 04/05/18 06:15 04/05/18 06:12 PT 22.7 SECONDS (9.7-12.2) H 04/03/18 16:38 INR 2.1 04/03/18 16:38 APTT 39 SECONDS (21-34) H 04/03/18 16:38
[2018-04-05] MEDS: Docusate-Senna 50 mg-8.6 mg Tab PO SCH (21:10)
--- NOTE | 2018-04-05 21:34 | CP.PCM.PN ---
Subjective - Date & Time of Evaluation Date of Evaluation: 04/05/18 Time of Evaluation: 16:30 - Subjective Subjective: Patient seen and evaluated Improved breathing Diastolic CHF HTN Anemia GI bleeding? Continue lasix Transfuse to keep Hgb above 9 Objective - Vital Signs/Intake and Output Vital Signs (last 24 hours): Temp Pulse Resp BP Pulse Ox 99.6 F 112 H 25 H 137/69 97 04/05/18 20:50 04/05/18 20:50 04/05/18 20:50 04/05/18 20:50 04/05/18 19:01 Intake and Output: 04/05/18 04/06/18 18:59 06:59 Intake Total 1040 5 Output Total 380 Balance 660 5 - Medications Medications: Current Medications Acetaminophen (Tylenol 325mg Tab) 650 mg PO Q6 PRN PRN Reason: Fever >100.4 F Last Admin: 04/05/18 21:03 Dose: 650 mg Docusate Sodium (Colace) 100 mg PO DAILY [facility] Last Admin: 04/05/18 10:38 Dose: 100 mg Ferrous Sulfate (Feosol) 325 mg PO DAILY [facility] Last Admin: 04/05/18 11:04 Dose: 325 mg Furosemide (Lasix) 20 mg IVP BID [facility] Last Admin: 04/05/18 18:49 Dose: 20 mg Piperacillin Sod/Tazobactam Sod (Zosyn 3.375 Gm Iv Premix) 3.375 gm in 50 mls @ 100 mls/hr IVPB Q8H [facility] PRN Reason: Protocol Last Admin: 04/05/18 18:47 Dose: 100 mls/hr Doxycycline Hyclate 100 mg/ (Sodium Chloride) 100 mls @ 100 mls/hr IVPB Q12H [facility] PRN Reason: Protocol Last Admin: 04/05/18 11:43 Dose: 100 mls/hr Verapamil HCl 50 mg/ Sodium (Chloride) 100 mls @ 10 mls/hr IV .Q10H [facility]; 5 MG/ HR PRN Reason: Protocol Ipratropium [place] (Atrovent) 0.5 mg IH RQ6 [facility] Last Admin: 04/05/18 19:13 Dose: 0.5 mg Lidocaine (Lidoderm) 1 ea TD DAILY [facility] Last Admin: 04/05/18 11:03 Dose: 1 ea Metoprolol Tartrate (Lopressor) 50 mg PO Q12H [facility] Last Admin: 04/05/18 21:10 Dose: 50 mg Pantoprazole Sodium (Protonix Inj) 40 mg IVP DAILY [facility] Last Admin: 04/05/18 10:12 Dose: 40 mg Senna/Docusate Sodium (Senokot S 50 Mg-8.6 Mg) 1 tab PO HS [facility] Last Admin: 04/05/18 21:10 Dose: Not Given - Labs Labs: 04/05/18 06:15 04/05/18 06:12 PT 22.7 SECONDS (9.7-12.2) H 04/03/18 16:38 INR 2.1 04/03/18 16:38 APTT 39 SECONDS (21-34) H 04/03/18 16:38
[2018-04-06] MEDS: Ipratropium 0.02% Inhal Soln (0.5 mg/2.5 ml) UD IH SCH ×4 (02:19→19:46)
[2018-04-06] MEDS: Piperacill/Tazo 3.375gm in Dex 3.375 GM/50 ML BAG IVPB SCH ×3 (03:11→18:00)
[2018-04-06 06:22] LABS: BASO % 0.3 % (0.0-2.0); EOS % 0.3 % (0.0-4.0); HEMOGLOBIN 10.3 g/dL (11.0-16.0); LYMPH # 0.3 K/uL (1.0-4.3); LYMPH % 5.6 % (20.0-40.0); MEAN CELL VOLUME 82.9 fL (81.0-99.0); MEAN CORPUSCULAR HEMOGLOBIN 26.9 pg (27.0-31.0); MEAN CORPUSCULAR HGB CONC 32.5 g/dL (33.0-37.0); MEAN PLATELET VOLUME 9.1 fL (7.2-11.7); MONO # 0.8 K/uL (0.0-0.8); MONO % 17.9 % (0.0-10.0); NEUT # 3.5 K/uL (1.8-7.0); NEUT % 75.9 % (50.0-75.0); NRBC % 0.1 % (0.0-2.0); PLATELET COUNT 87 K/uL (130-400); RBC 3.82 Mil/uL (3.80-5.20); RED CELL DISTRIBUTION WIDTH 18.2 % (11.5-14.5); WHITE BLOOD COUNT 4.6 K/uL (4.8-10.8)
[2018-04-06 06:35] LABS: ALBUMIN 3.1 g/dL (3.5-5.0); CALCIUM 8.7 mg/dl (8.6-10.4)
[2018-04-06 06:36] LABS: INR 1.4; PROTHROMBIN TIME 15.7 SECONDS (9.7-12.2)
[2018-04-06 08:33] LABS: ANISOCYTOSIS MODERATE; BANDS 4 % (0-2); LYMPHOCYTE 3 % (20-40); MONOCYTE 20 % (0-10); NEUTROPHIL 71 % (50-75); PLATELET ESTIMATE DECREASED (NORMAL); REACTIVE LYMPHOCYTES 2 % (0-0); TOTAL CELLS COUNTED 100
[2018-04-06 08:34] LABS: HYPOCHROMIC SLIGHT; OVALOCYTES SLIGHT
--- NOTE | 2018-04-06 09:14 | CP.CCUPN ---
CCU Subjective - Physician Review Subjective (Free Text): 04/06/18 11:40 Pt seen and examined at bedside. Pt is on BiPAP saturating at 95%. Patient is able to have one sentence conversation off BiPAP. Patient denies having any CP , abdominal pain, N/V/D/C, F/C. CCU Objective - Vital Signs / Intake & Output Vital Signs (Last 4 hours): Vital Signs Pulse Resp BP Pulse Ox 04/06/18 08:15 126 H 26 H 120/79 95 04/06/18 07:26 121 H 04/06/18 07:15 118 H 35 H 112/59 L 95 04/06/18 07:00 124 H 43 H 95 04/06/18 06:18 134 H 04/06/18 06:15 106 H 26 H 131/68 95 04/06/18 06:00 134 H 35 H 93 L 04/06/18 05:15 116 H 43 H 123/76 96 04/06/18 05:00 112 H 39 H 96 Intake and Output (Last 8hrs): Intake & Output 04/05/18 04/06/18 04/06/18 22:59 06:59 14:59 Intake Total 465 980 20 Output Total 280 Balance 185 980 20 Weight 157 lb 4.8 oz Intake: IV 5 Intake, IV Amount 40 230 20 Left Forearm 40 80 20 Rt FA 0 150 Oral 420 100 Blood Product 0 650 Red Blood Cells Cpd As1 0 325 Lr Unit [id number] Output: Urine 280 Urine, Voided 280 Other: # Bowel Movements 2 0 0 - Physical Exam Head: Positive for: Atraumatic, Normocephalic Extroacular Muscles: Positive for: EOMI Conjunctiva: Positive for: Normal Mouth: Positive for: Dry Respiratory/Chest: Positive for: Rhonchi. Negative for: Respiratory Distress, Accessory Muscle Use, Wheezes Cardiovascular: Positive for: Normal S1, S2, Tachycardic Abdomen: Positive for: Normal Bowel Sounds. Negative for: Tenderness, Distention, Peritoneal Signs Lower Extremity: Positive for: Edema Neurological: Positive for: GCS=15, Speech Normal Skin: Positive for: Warm, Dry, Normal Color. Negative for: Rashes Psychiatric: Positive for: Alert, Oriented x 3, Normal Insight, Normal Concentration - Medications Active Medications: Active Medications Generic Name Dose Route Start Last Admin Trade Name Freq PRN Reason Stop Dose Admin Acetaminophen 650 mg 07/06/18 23:00 04/05/18 21:03 Tylenol 325mg Tab PO 650 mg Q6 PRN Administration Fever >100.4 F Docusate Sodium 100 mg 04/05/18 10:15 04/05/18 10:38 Colace PO 100 mg DAILY [facility] Administration Ferrous Sulfate 325 mg 04/05/18 10:15 04/05/18 11:04 Feosol PO 325 mg DAILY [facility] Administration Furosemide 20 mg 04/04/18 10:00 04/05/18 18:49 Lasix IVP 20 mg BID K[facility]E Administration Piperacillin Sod/Tazobactam Sod 3.375 gm in 50 mls @ 100 mls/hr 04/04/18 03: 00 04/06/18 03:11 Zosyn 3.375 Gm Iv Premix IVPB 100 mls/hr Q8H [facility] Administration Protocol Doxycycline Hyclate 100 mg/ 100 mls @ 100 mls/hr 04/04/18 12:00 04/05/18 23: 51 Sodium Chloride IVPB 100 mls/hr Q12H [facility] Administration Protocol Verapamil HCl 50 mg/ Sodium 100 mls @ 10 mls/hr 04/05/18 21:30 04/06/18 08:20 Chloride IV 10 mls/hr .Q10H [facility] Administration Protocol 5 MG/HR Ipratropium [place] 0.5 mg 04/04/18 14:00 04/06/18 07:25 Atrovent IH 0.5 mg RQ6 [facility] Administration Lidocaine 1 ea 04/05/18 10:15 04/05/18 11:03 Lidoderm TD 1 ea DAILY [facility] Administration Metoprolol Tartrate 50 mg 04/05/18 22:00 04/05/18 21:10 Lopressor PO 50 mg Q12H [facility] Administration Pantoprazole Sodium 40 mg 04/04/18 10:00 04/05/18 10:12 Protonix Inj IVP 40 mg DAILY [facility] Administration Senna/Docusate Sodium 1 tab 04/05/18 22:00 04/05/18 21:10 Senokot S 50 Mg-8.6 Mg PO Not Given HS [facility] - Patient Studies Lab Studies: Microbiology Studies 04/03/18 18:12 Urine Culture - Final Urine,Catheterized Coagulase Neg Staphylococcus 04/04/18 06:18 Blood Culture - Preliminary Blood-Venous NO GROWTH AFTER 48 HOURS 04/04/18 06:17 Blood Culture - Preliminary Blood-Venous NO GROWTH AFTER 48 HOURS Lab Studies 04/06/18 04/06/18 04/06/18 Range/Units 06:15 06:15 06:15 WBC 4.6 L D (4.8-10.8) K/uL RBC 3.82 (3.80-5.20) Mil/uL Hgb 10.3 L D (11.0-16.0) g/dL Hct 31.7 L (34.0-47.0) % MCV 82.9 (81.0-99.0) fL MCH 26.9 L (27.0-31.0) pg MCHC 32.5 L (33.0-37.0) g/dL RDW 18.2 H (11.5-14.5) % Plt Count 87 L D (130-400) K/uL MPV 9.1 (7.2-11.7) fL Neut % (Auto) 75.9 H (50.0-75.0) % Lymph % (Auto) 5.6 L (20.0-40.0) % [place] % (Auto) 17.9 H (0.0-10.0) % Eos % (Auto) 0.3 (0.0-4.0) % Baso % (Auto) 0.3 (0.0-2.0) % Neut # (Auto) 3.5 (1.8-7.0) K/uL Lymph # (Auto) 0.3 L (1.0-4.3) K/uL [place] # (Auto) 0.8 (0.0-0.8) K/uL Eos # (Auto) 0.0 (0.0-0.7) K/uL Baso # (Auto) 0.0 (0.0-0.2) K/uL Neutrophils % (Manual) 71 (50-75) % Band Neutrophils % 4 H (0-2) % Lymphocytes % (Manual) 3 L (20-40) % Reactive Lymphs % 2 H (0-0) % Monocytes % (Manual) 20 H (0-10) % Platelet Estimate Decreased L (NORMAL) Hypochromasia (manual) Slight Anisocytosis (manual) Moderate Ovalocytes Slight PT 15.7 H D (9.7-12.2) SECONDS INR 1.4 D APTT 34 D (21-34) SECONDS Sodium 136 (132-148) mmol/L Potassium 5.4 H (3.6-5.2) mmol/L Chloride 101 (98-107) mmol/L Carbon Dioxide 24 (22-30) mmol/L Anion Gap 16 (10-20) BUN 35 H (7-17) mg/dL Creatinine 1.3 H (0.7-1.2) mg/dL Est GFR ( Amer) 47 Est GFR (Non-Af Amer) 39 Random Glucose 139 H (65-105) mg/dL Calcium 8.7 (8.6-10.4) mg/dl Phosphorus 3.1 (2.5-4.5) mg/dL Magnesium 2.2 (1.6-2.3) mg/dL Total Bilirubin 2.3 H (0.2-1.3) mg/dL AST 62 H D (14-36) U/L ALT 52 (9-52) U/L Alkaline Phosphatase 270 H D (38-126) U/L Lactate Dehydrogenase 1056 H (313-618) U/L Total Protein 6.2 L (6.3-8.3) g/dL Albumin 3.1 L (3.5-5.0) g/dL Globulin 3.1 (2.2-3.9) gm/dL Albumin/Globulin Ratio 1.0 (1.0-2.1) Stool Occult Blood (NEGATIVE) Blood Type Antibody Screen 04/05/18 04/05/18 Range/Units 19:11 11:57 WBC (4.8-10.8) K/uL RBC (3.80-5.20) Mil/uL Hgb (11.0-16.0) g/dL Hct (34.0-47.0) % MCV (81.0-99.0) fL MCH (27.0-31.0) pg MCHC (33.0-37.0) g/dL RDW (11.5-14.5) % Plt Count (130-400) K/uL MPV (7.2-11.7) fL Neut % (Auto) (50.0-75.0) % Lymph % (Auto) (20.0-40.0) % [place] % (Auto) (0.0-10.0) % Eos % (Auto) (0.0-4.0) % Baso % (Auto) (0.0-2.0) % Neut # (Auto) (1.8-7.0) K/uL Lymph # (Auto) (1.0-4.3) K/uL [place] # (Auto) (0.0-0.8) K/uL Eos # (Auto) (0.0-0.7) K/uL Baso # (Auto) (0.0-0.2) K/uL Neutrophils % (Manual) (50-75) % Band Neutrophils % (0-2) % Lymphocytes % (Manual) (20-40) % Reactive Lymphs % (0-0) % Monocytes % (Manual) (0-10) % Platelet Estimate (NORMAL) Hypochromasia (manual) Anisocytosis (manual) Ovalocytes PT (9.7-12.2) SECONDS INR APTT (21-34) SECONDS Sodium (132-148) mmol/L Potassium (3.6-5.2) mmol/L Chloride (98-107) mmol/L Carbon Dioxide (22-30) mmol/L Anion Gap (10-20) BUN (7-17) mg/dL Creatinine (0.7-1.2) mg/dL Est GFR ( Amer) Est GFR (Non-Af Amer) Random Glucose (65-105) mg/dL Calcium (8.6-10.4) mg/dl Phosphorus (2.5-4.5) mg/dL Magnesium (1.6-2.3) mg/dL Total Bilirubin (0.2-1.3) mg/dL AST (14-36) U/L ALT (9-52) U/L Alkaline Phosphatase (38-126) U/L Lactate Dehydrogenase (313-618) U/L Total Protein (6.3-8.3) g/dL Albumin (3.5-5.0) g/dL Globulin (2.2-3.9) gm/dL Albumin/Globulin Ratio (1.0-2.1) Stool Occult Blood Negative (NEGATIVE) Blood Type O POSITIVE Antibody Screen Negative Laboratory Results - last 24 hr 04/05/18 04/05/18 04/06/18 11:57 19:11 06:15 WBC 4.6 L D RBC 3.82 Hgb 10.3 L D Hct 31.7 L MCV 82.9 MCH 26.9 L MCHC 32.5 L RDW 18.2 H Plt Count 87 L D MPV 9.1 Neut % (Auto) 75.9 H Lymph % (Auto) 5.6 L [place] % (Auto) 17.9 H Eos % (Auto) 0.3 Baso % (Auto) 0.3 Neut # (Auto) 3.5 Lymph # (Auto) 0.3 L [place] # (Auto) 0.8 Eos # (Auto) 0.0 Baso # (Auto) 0.0 Neutrophils % (Manual) 71 Band Neutrophils % 4 H Lymphocytes % (Manual) 3 L Reactive Lymphs % 2 H Monocytes % (Manual) 20 H Platelet Estimate Decreased L Hypochromasia (manual) Slight Anisocytosis (manual) Moderate Ovalocytes Slight PT INR APTT Sodium Potassium Chloride Carbon Dioxide Anion Gap BUN Creatinine Est GFR ( Amer) Est GFR (Non-Af Amer) Random Glucose Calcium Phosphorus Magnesium Total Bilirubin AST ALT Alkaline Phosphatase Lactate Dehydrogenase Total Protein Albumin Globulin Albumin/Globulin Ratio Stool Occult Blood Negative Blood Type O POSITIVE Antibody Screen Negative 04/06/18 04/06/18 06:15 06:15 WBC RBC Hgb Hct MCV MCH MCHC RDW Plt Count MPV Neut % (Auto) Lymph % (Auto) [place] % (Auto) Eos % (Auto) Baso % (Auto) Neut # (Auto) Lymph # (Auto) [place] # (Auto) Eos # (Auto) Baso # (Auto) Neutrophils % (Manual) Band Neutrophils % Lymphocytes % (Manual) Reactive Lymphs % Monocytes % (Manual) Platelet Estimate Hypochromasia (manual) Anisocytosis (manual) Ovalocytes PT 15.7 H D INR 1.4 D APTT 34 D Sodium 136 Potassium 5.4 H Chloride 101 Carbon Dioxide 24 Anion Gap 16 BUN 35 H Creatinine 1.3 H Est GFR ( Amer) 47 Est GFR (Non-Af Amer) 39 Random Glucose 139 H Calcium 8.7 Phosphorus 3.1 Magnesium 2.2 Total Bilirubin 2.3 H AST 62 H D ALT 52 Alkaline Phosphatase 270 H D Lactate Dehydrogenase 1056 H Total Protein 6.2 L Albumin 3.1 L Globulin 3.1 Albumin/Globulin Ratio 1.0 Stool Occult Blood Blood Type Antibody Screen Review of Systems - Constitutional Constitutional: absent: Fever, Chills - EENT Eyes: absent: Photophobia Nose/Mouth/Throat: absent: Nasal Congestion, Nasal Discharge - Cardiovascular Cardiovascular: Dyspnea. absent: Chest Pain, Edema, Lightheadedness - Respiratory Respiratory: Dyspnea. absent: Cough, Dyspnea on Exertion, Wheezing, Chest Congestion - Gastrointestinal Gastrointestinal: absent: Abdominal Pain, Constipation, Diarrhea, Nausea, Vomiting - Integumentary Integumentary: absent: Lesions, Rash - Psychiatric Psychiatric: absent: Anxiety, Depression Critical Care Progress Note - Extremities/Vascular Does the Patient have a Central Venous Catheter?: No Does the Patient have a Sheehan Catheter?: No Does the Patient need a Sheehan Catheter?: No - Prophylaxis GI Prophylaxis GI: PPI - Prophylaxis DVT Prophylaxis DVT: SCDs - Nutrition Nutrition: Nutrition Category Date Time Status Heart Healthy Diet [DIET] Diets 04/04/18 Breakfast Active Assessment/Plan - Assessment and Plan (Free Text) Assessment: 87 year old female with past medical history of a. fib, CAD s/p LAD stents, HTn , pacemaker, s/p TAVR x 2 is admitted from [place] for acute respiratory distress likely 2/2 CHF exacerbation. Cardiology PMhx of a fib, CAD s/p LAD stent and multivessel disease, TAVR x 2, CHF A. A fib - Currently on Verapamil drip - Continue lopressor 50 mg po q12 - Pt was on Aspirin and Eliquis, currently on hold. INR 1.4 this am A. CHF exacerbation - proBENP [place] admission [place] [id number] - Continue Lasixs 20 mg IV BID - Currently on BiPAP sating at 95% - Cardiology, Dr. Gaitan is consulted - Ech on 04/04 showed EF of 44% with mild LVH, septal hypokenesis, moderate aortic valve stenosis and mild pulm HTN A. CAD s/p stent - troponins negative x 2 Pulmonology - SBO likely 2/2 CHF exacerbation. - CXR showed pulmonary vascular congestion with trace B/L pleural effusions - BiPAP - Atrovent q6 GI - PMHx of PUD with recent GI bleed - D5W at 30 cc A. PUD - endoscopy done on 03/19/18 showed non-bleeding esophageal ulcer, esophagitis, and non-bleeding duodenal ulcer with no stigmata of bleeding - Continue protonix 40 IVP qd A. Constipation - Senokot, colace A. UTI - urine culture positive for coagulase negative staph - Continue Abx Renal BUN/Cr: 35/1.3 Will continue to monitor Heme/onc A. Pancytopenia - Pt transfused PRBC on admission - Hgb stable at 10.3 this am - Continue iron supplements - negative blood cultures - Bone marrow biopsy done on 03/24/18 showed hypercellular marrow with maturing trilineage hematopoeisis and a decreased M:E ratio. Stoarge iron present. No evidence of overt myeodysplasia, plasma cell myeloma or lymphoma. Report in chart ID A. Sepsis likely 2/2 UTI - Afebrile overnight. - Pt is noted ot be pancytopenic. WBC count 4.6 this am with left shift - Urine culture positive - Will d/c doxy. Continue zosyn and start vancomycin Prophylaxis - SCDs - Protonix IV qd - Oral AC contraindicated due to recent GI bleed Mo Hassan - Date & Time Date: 04/06/18 Time: 08:54
[2018-04-06] MEDS: Lidocaine 5% Patch TD SCH (10:02)
--- NOTE | 2018-04-06 11:01 | RAD ---
HISTORY: chf COMPARISON: Chest radiograph dated 04/04/2018. FINDINGS: LUNGS: Stable chronic prominence of the bilateral interstitial markings with superimposed pulmonary vascular congestion and right upper lobe pulmonary edema versus superimposed infiltrate. PLEURA: Questionable trace bilateral effusions. No pneumothorax apparent. CARDIOVASCULAR: Left subclavian access to lead pacemaker redemonstrated. T AVR redemonstrated. Atherosclerotic aortic calcifications. Cardiomediastinal silhouette stably enlarged. Heavy mitral annular calcification redemonstrated. OSSEOUS STRUCTURES: Unchanged. VISUALIZED UPPER ABDOMEN: Normal. OTHER FINDINGS: None. IMPRESSION: Stable chronic prominence of the bilateral interstitial markings with superimposed pulmonary vascular congestion. Right upper lobe pulmonary edema versus superimposed infiltrate. Questionable trace bilateral pleural effusions.
[2018-04-06] MEDS ORDERED: Vancomycin 1 gm/NS 200 ml 1 GM/200 ML BAG IVPB SCH (11:30)
--- NOTE | 2018-04-06 16:03 | CARD ---
APPROVED REPORT EKG Measurement Heart [id number] <Conclusion> Atrial fibrillation with rapid ventricular response Left axis deviation Left bundle branch block Abnormal ECG
--- NOTE | 2018-04-06 18:43 | CP.PCM.CON ---
History of Present Illness - History of Present Illness History of Present Illness: INFECTIOUS DISEASE CONSULTATION LUCITA WETZEL MD, FACP ICU/CCU 14A 04/06/2018 CHART REVIEWED PT EXAMINED CASE DISCUSSED WITH PMD DR VALADEZ AND THOM ARCINIEGA THIS PT IS A 87 YR OLD WHITE FEMALE, PREVIOUS PT OF DR SURENDRA BOLAÑOS , WHO PRESENTS TO ER/ED 04/03/18/WITH SOB X 2-3 DAYS, TEMP REPORTED OF 102+, BILATERAL LEG SWELLING AND SUBSEQUENTLY REQUIRING BIPAP FOR RESPIRATORY FUNCTION -LIMITED HX, OTHERWISE. AN INFECTIOUS DISEASE CONSULTATION WAS REQUESTED 2ND NEW PNEUMONIA WITH REPORTED TEMPERATURES 102+, ESPECIALLY BILATERAL APICAL INFILTRATES RIGHT MUCH MORE THAN LEFT. 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 PROGNOSIS IS LIMITED AT BEST... Review of Systems - Review of Systems Systems not reviewed;Unavailable: Respiratory Distress - Constitutional Constitutional: Fever, Lethargy, Weakness - EENT Nose/Mouth/Throat: Dry Mouth, Odynophagia. absent: Epistaxis - Cardiovascular Cardiovascular: Dyspnea, Dyspnea on Exertion, Lightheadedness, Pedal Edema, Rapid Heart Rate - Respiratory Respiratory: Dyspnea on Exertion - Gastrointestinal Gastrointestinal: Heartburn, Nausea - Musculoskeletal Musculoskeletal: Atrophy, Muscle Weakness, Myalgias - Integumentary Integumentary: Unusual Bruising - Neurological Neurological: Abnormal Speech, Weakness. absent: Focal Weakness - Hematologic/Lymphatic Hematologic: Easy Bleeding, Easy Bruising Past Patient History - Past Medical History & Family History Past Medical History?: Yes - Past Social History Smoking Status: Never Smoked Chewing Tobacco Use: No Cigar Use: No Drugs: Denies Domestic Violence: Negative - CARDIAC Hx Cardiac Disorders: Yes Hx Atrial Fibrillation: Yes Hx Congestive Heart Failure: Yes Hx Hypercholesterolemia: Yes Hx Hypertension: Yes Hx Pacemaker: Yes Other/Comment: TAVR X 2 - PULMONARY Hx Respiratory Disorders: Yes - NEUROLOGICAL Hx Neurological Disorder: No - HEENT Hx HEENT Problems: No - RENAL Hx Chronic Kidney Disease: Yes - ENDOCRINE/METABOLIC Hx Endocrine Disorders: No - HEMATOLOGICAL/ONCOLOGICAL Hx Blood Disorders: Yes Hx Anemia: Yes Hx Blood Transfusions: Yes - INTEGUMENTARY Hx Dermatological Problems: No - MUSCULOSKELETAL/RHEUMATOLOGICAL Hx Musculoskeletal Disorders: Yes Hx Arthritis: Yes Hx Falls: Yes - GASTROINTESTINAL Hx Gastrointestinal Disorders: Yes Hx Ulcer: Yes (duodenal) - GENITOURINARY/GYNECOLOGICAL Hx Genitourinary Disorders: No - PSYCHIATRIC Hx Psychophysiologic Disorder: No Hx Substance Use: No - SURGICAL HISTORY Hx Surgeries: Yes Hx Coronary Stent: Yes (x2) Hx Valve Replacement: Yes Other/Comment: permanent pacemaker - ANESTHESIA Hx Anesthesia: Yes Hx Anesthesia Reactions: No Hx Malignant Hyperthermia: No Has any member of the family had a problem w/ anesthesia?: No Meds Allergies/Adverse Reactions: Allergies Allergy/AdvReac Type Severity Reaction Status Date / Time shellfish derived Allergy Intermediate RASH Verified 04/03/18 16:13 statins Allergy Intermediate RASH Uncoded 04/03/18 16:13 - Medications Medications: Current Medications Acetaminophen (Tylenol 325mg Tab) 650 mg PO Q6 PRN PRN Reason: Fever >100.4 F Last Admin: 04/06/18 13:50 Dose: 650 mg Docusate Sodium (Colace) 100 mg PO DAILY [facility] Last Admin: 04/06/18 10:44 Dose: Not Given Ferrous Sulfate (Feosol) 325 mg PO DAILY [facility] Last Admin: 04/06/18 10:44 Dose: Not Given Furosemide (Lasix) 20 mg IVP BID [facility] Last Admin: 04/06/18 17:59 Dose: 20 mg Piperacillin Sod/Tazobactam Sod (Zosyn 3.375 Gm Iv Premix) 3.375 gm in 50 mls @ 100 mls/hr IVPB Q8H [facility] PRN Reason: Protocol Last Admin: 04/06/18 18:00 Dose: 100 mls/hr Verapamil HCl 50 mg/ Sodium (Chloride) 100 mls @ 10 mls/hr IV .Q10H [facility]; 5 MG/ HR PRN Reason: Protocol Last Admin: 04/06/18 18:00 Dose: 10 mls/hr Dextrose (Dextrose 5% In Water 1000 Ml) 1,000 mls @ 30 mls/hr IV .Q24H [facility] Last Admin: 04/06/18 11:00 Dose: 30 mls/hr Ipratropium [place] (Atrovent) 0.5 mg IH RQ6 [facility] Last Admin: 04/06/18 14:00 Dose: 0.5 mg Lidocaine (Lidoderm) 1 ea TD DAILY [facility] Last Admin: 04/06/18 10:02 Dose: 1 ea Metoprolol Tartrate (Lopressor) 50 mg PO Q12H [facility] Last Admin: 04/06/18 10:44 Dose: Not Given Pantoprazole Sodium (Protonix Inj) 40 mg IVP DAILY [facility] Last Admin: 04/06/18 11:00 Dose: 40 mg Senna/Docusate Sodium (Senokot S 50 Mg-8.6 Mg) 1 tab PO HS [facility] Last Admin: 04/05/18 21:10 Dose: Not Given Physical Exam - Constitutional Appears: Older Than Stated Age, Confused, Chronically Ill - Head Exam Head Exam: ATRAUMATIC - Eye Exam Eye Exam: absent: Nystagmus, Periorbital tenderness - ENT Exam ENT Exam: Mucous Membranes Dry - Respiratory Exam Respiratory Exam: Decreased Breath Sounds, Rhonchi - Cardiovascular Exam Cardiovascular Exam: Tachycardia - GI/Abdominal Exam GI & Abdominal Exam: Soft. absent: Tenderness - Rectal Exam Rectal Exam: Deferred Results - Vital Signs Recent Vital Signs: Last Vital Signs Temp 98.2 F 04/06/18 16:00 Pulse 115 H 04/06/18 17:00 Resp 27 H 04/06/18 17:00 BP 113/69 04/06/18 17:59 Pulse Ox 98 04/06/18 17:00 - Labs Result Diagrams: 04/07/18 06:08 04/07/18 06:09 Labs: Laboratory Results - last 24 hr 04/05/18 04/06/18 04/06/18 19:11 06:15 06:15 WBC 4.6 L D RBC 3.82 Hgb 10.3 L D Hct 31.7 L MCV 82.9 MCH 26.9 L MCHC 32.5 L RDW 18.2 H Plt Count 87 L D MPV 9.1 Neut % (Auto) 75.9 H Lymph % (Auto) 5.6 L [place] % (Auto) 17.9 H Eos % (Auto) 0.3 Baso % (Auto) 0.3 Neut # (Auto) 3.5 Lymph # (Auto) 0.3 L [place] # (Auto) 0.8 Eos # (Auto) 0.0 Baso # (Auto) 0.0 Neutrophils % (Manual) 71 Band Neutrophils % 4 H Lymphocytes % (Manual) 3 L Reactive Lymphs % 2 H Monocytes % (Manual) 20 H Platelet Estimate Decreased L Hypochromasia (manual) Slight Anisocytosis (manual) Moderate Ovalocytes Slight PT INR APTT Sodium 136 Potassium 5.4 H Chloride 101 Carbon Dioxide 24 Anion Gap 16 BUN 35 H Creatinine 1.3 H Est GFR ( Amer) 47 Est GFR (Non-Af Amer) 39 Random Glucose 139 H Calcium 8.7 Phosphorus 3.1 Magnesium 2.2 Total Bilirubin 2.3 H AST 62 H D ALT 52 Alkaline Phosphatase 270 H D Lactate Dehydrogenase 1056 H Total Protein 6.2 L Albumin 3.1 L Globulin 3.1 Albumin/Globulin Ratio 1.0 Blood Type O POSITIVE Antibody Screen Negative 04/06/18 06:15 WBC RBC Hgb Hct MCV MCH MCHC RDW Plt Count MPV Neut % (Auto) Lymph % (Auto) [place] % (Auto) Eos % (Auto) Baso % (Auto) Neut # (Auto) Lymph # (Auto) [place] # (Auto) Eos # (Auto) Baso # (Auto) Neutrophils % (Manual) Band Neutrophils % Lymphocytes % (Manual) Reactive Lymphs % Monocytes % (Manual) Platelet Estimate Hypochromasia (manual) Anisocytosis (manual) Ovalocytes PT 15.7 H D INR 1.4 D APTT 34 D Sodium Potassium Chloride Carbon Dioxide Anion Gap BUN Creatinine Est GFR ( Amer) Est GFR (Non-Af Amer) Random Glucose Calcium Phosphorus Magnesium Total Bilirubin AST ALT Alkaline Phosphatase Lactate Dehydrogenase Total Protein Albumin Globulin Albumin/Globulin Ratio Blood Type Antibody Screen Assessment & Plan (1) Pancytopenia Status: Acute (2) HAP (hospital-acquired pneumonia) Status: Suspected Priority: Medium (3) S/P TAVR (transcatheter aortic valve replacement) Status: Chronic Comment: CONSIDER UNDERLYING ENDOCARDITIS (4) CHF (congestive heart failure) Status: Acute (5) Atrial fibrillation Status: Chronic
[2018-04-06] MEDS ORDERED: Vancomycin 500 mg Inj IVPB SCH (19:00)
[2018-04-06] MEDS: Vancomycin 1 gm/NS 200 ml 1 GM/200 ML BAG IVPB SCH (21:19)
[2018-04-06] MEDS: Docusate-Senna 50 mg-8.6 mg Tab PO SCH (21:23)
--- NOTE | 2018-04-06 22:58 | CP.PCM.PN ---
Subjective - Date & Time of Evaluation Date of Evaluation: 04/06/18 Time of Evaluation: 16:10 - Subjective Subjective: Patient seen and evaluated Short of breath on Facemask Objective - Vital Signs/Intake and Output Vital Signs (last 24 hours): Temp Pulse Resp BP Pulse Ox 98.8 F 123 H 28 H 104/68 96 04/06/18 20:00 04/06/18 22:32 04/06/18 21:00 04/06/18 21:00 04/06/18 21:00 Intake and Output: 04/06/18 04/07/18 18:59 06:59 Intake Total 593 510 Balance 593 510 - Medications Medications: Current Medications Acetaminophen (Tylenol 325mg Tab) 650 mg PO Q6 PRN PRN Reason: Fever >100.4 F Last Admin: 04/06/18 22:15 Dose: 650 mg Docusate Sodium (Colace) 100 mg PO DAILY [facility] Last Admin: 04/06/18 10:44 Dose: Not Given Ferrous Sulfate (Feosol) 325 mg PO DAILY [facility] Last Admin: 04/06/18 10:44 Dose: Not Given Furosemide (Lasix) 20 mg IVP BID [facility] Last Admin: 04/06/18 17:59 Dose: 20 mg Verapamil HCl 50 mg/ Sodium (Chloride) 100 mls @ 10 mls/hr IV .Q10H [facility]; 5 MG/ HR PRN Reason: Protocol Last Admin: 04/06/18 18:00 Dose: 10 mls/hr Dextrose (Dextrose 5% In Water 1000 Ml) 1,000 mls @ 30 mls/hr IV .Q24H [facility] Last Admin: 04/06/18 11:00 Dose: 30 mls/hr Imipenem/Cilastatin Sodium 500 (mg/ Sodium Chloride) 100 mls @ 100 mls/hr IVPB Q8H [facility] PRN Reason: Protocol Last Admin: 04/06/18 20:45 Dose: 100 mls/hr Vancomycin/Sodium Chloride (Vancomycin 1 Gm/Ns 200 Ml) 1 gm in 200 mls @ 133.333 mls/hr IVPB Q12H [facility] Stop: 04/11/18 21:01 Last Admin: 04/06/18 21:19 Dose: 133.333 mls/hr Ipratropium [place] (Atrovent) 0.5 mg IH RQ6 [facility] Last Admin: 04/06/18 19:46 Dose: 0.5 mg Lidocaine (Lidoderm) 1 ea TD DAILY KIMBERLEE Last Admin: 04/06/18 10:02 Dose: 1 ea Metoprolol Tartrate (Lopressor) 50 mg PO Q12H KIMBERLEE Last Admin: 04/06/18 21:21 Dose: 50 mg Pantoprazole Sodium (Protonix Inj) 40 mg IVP DAILY KIMBERLEE Last Admin: 04/06/18 11:00 Dose: 40 mg Senna/Docusate Sodium (Senokot S 50 Mg-8.6 Mg) 1 tab PO HS KIMBERLEE Last Admin: 04/06/18 21:23 Dose: Not Given - Labs Labs: 04/06/18 06:15 04/06/18 06:15 PT 15.7 SECONDS (9.7-12.2) H D 04/06/18 06:15 INR 1.4 D 04/06/18 06:15 APTT 34 SECONDS (21-34) D 04/06/18 06:15
[2018-04-07] MEDS: Ipratropium 0.02% Inhal Soln (0.5 mg/2.5 ml) UD IH SCH ×4 (01:51→20:02)
[2018-04-07 06:15] LABS: BASO % 0.4 % (0.0-2.0); EOS % 0.7 % (0.0-4.0); HEMOGLOBIN 9.9 g/dL (11.0-16.0); LYMPH # 0.3 K/uL (1.0-4.3); LYMPH % 7.2 % (20.0-40.0); MEAN CELL VOLUME 82.4 fL (81.0-99.0); MEAN CORPUSCULAR HEMOGLOBIN 26.8 pg (27.0-31.0); MEAN CORPUSCULAR HGB CONC 32.5 g/dL (33.0-37.0); MEAN PLATELET VOLUME 9.3 fL (7.2-11.7); MONO # 0.7 K/uL (0.0-0.8); MONO % 16.5 % (0.0-10.0); NEUT # 3.1 K/uL (1.8-7.0); NEUT % 75.2 % (50.0-75.0); PLATELET COUNT 83 K/uL (130-400); RED CELL DISTRIBUTION WIDTH 18.6 % (11.5-14.5); WHITE BLOOD COUNT 4.1 K/uL (4.8-10.8)
[2018-04-07 06:46] LABS: ALBUMIN 2.9 g/dL (3.5-5.0); CALCIUM 8.8 mg/dl (8.6-10.4)
[2018-04-07 08:14] LABS: BANDS 2 % (0-2); LYMPHOCYTE 10 % (20-40); MONOCYTE 13 % (0-10); NEUTROPHIL 75 % (50-75); PLATELET ESTIMATE DECREASED (NORMAL); TOTAL CELLS COUNTED 100
[2018-04-07 08:15] LABS: ANISOCYTOSIS SLIGHT; HYPOCHROMIC SLIGHT; OVALOCYTES SLIGHT; POIKILOCYTOSIS SLIGHT
[2018-04-07 08:16] LABS: TEARDROP CELLS SLIGHT
[2018-04-07] MEDS: Lidocaine 5% Patch TD SCH (09:03)
--- NOTE | 2018-04-07 09:07 | RAD ---
Date of service: 04/07/2018 HISTORY: respiratory distress COMPARISON: 04/06/2018 FINDINGS: LUNGS: Shallow lung volumes. Background interstitial pulmonary edema similar. The prior right upper lobe coalescent airspace opacity shows patchy partial clearing PLEURA: Minimal bilateral pleural effusions possible. Left costophrenic angle less sharp -currently. No pneumothorax apparent. CARDIOVASCULAR: Mild cardiomegaly Atherosclerotic vascular calcifications present. . Especially prominent mitral annular calcification. Apparent transcatheter aortic valve replacement. Duallead pacemaker device before leads grossly intact -similar. OSSEOUS STRUCTURES: Bilateral shoulder arthrosis. Faint thoraco lumbar spondylosis perceived VISUALIZED UPPER ABDOMEN: Atherosclerotic vascular calcifications - descending abdominal aorta faintly perceived OTHER FINDINGS: None. IMPRESSION: Right upper lobe partial clearing (inferred prior area of coalescent pulmonary edema and/or infiltrate here) Similar background interstitial pulmonary edema Probable small interval left pleural effusion Other findings -as above.
[2018-04-07 10:30] LABS: ARTERIAL BLOOD GAS HCO3 25.8 mmol/L (21-28); ARTERIAL BLOOD GAS O2 SAT 97.7 % (95-98); ARTERIAL BLOOD GAS PCO2 36 mm/Hg (35-45); ARTERIAL BLOOD GAS PH 7.45 (7.35-7.45); ARTERIAL BLOOD GAS PO2 80 mm/Hg (80-100); ARTERIAL BLOOD GAS TCO2 26.1 mmol/L (22-28)
[2018-04-07] MEDS: Vancomycin 1 gm/NS 200 ml 1 GM/200 ML BAG IVPB SCH (11:08)
--- NOTE | 2018-04-07 11:09 | CP.CCUPN ---
<Jes Kumar - Last Filed: 04/07/18 17:22> CCU Subjective - Physician Review Subjective (Free Text): 04/07/18 11:00 87 year old female with past medical history of A. fib, CAD s/p LAD stents, HTN , pacemaker, s/p TAVR x 2 is admitted from rehab for acute respiratory distress 2/2 to CHF exacerbation; pt was off lasix in rehab ~2 wks. A. Fib w/ RVR overnight; HR in 130s; on Verapamil drip. Unable to maintain spO2 off BiPAP, FiO2 35%, [id number]. CCU Objective - Vital Signs / Intake & Output Vital Signs (Last 4 hours): Vital Signs Temp Pulse Resp BP Pulse Ox 04/07/18 10:05 100 H 38 H 122/71 95 04/07/18 10:00 113 H 33 H 95 04/07/18 09:40 111 H 04/07/18 09:02 112/78 04/07/18 09:00 123 H 25 H 121/28 L 92 L 04/07/18 08:00 98.4 F 119 H 28 H 112/78 97 04/07/18 07:34 112 H Intake and Output (Last 8hrs): Intake & Output 04/06/18 04/07/18 04/07/18 22:59 06:59 14:59 Intake Total 720 400 270 Output Total 900 150 Balance 720 -500 120 Weight 148 lb 8 oz Intake: Intake, IV Amount 670 400 270 Left Forearm 110 160 80 Right Wrist 210 240 190 Right Wrist #2 350 Oral 50 Output: Urine 900 150 Urine, Voided 900 150 - Physical Exam Head: Positive for: Atraumatic, Normocephalic Extroacular Muscles: Positive for: EOMI Conjunctiva: Positive for: Normal Mouth: Positive for: Dry Respiratory/Chest: Positive for: Decreased Breath Sounds, Rhonchi, Tachypneic. Negative for: Respiratory Distress, Accessory Muscle Use, Wheezes Cardiovascular: Positive for: Normal S1, S2, Tachycardic Abdomen: Positive for: Normal Bowel Sounds. Negative for: Tenderness, Distention, Peritoneal Signs Upper Extremity: Negative for: Cyanosis Lower Extremity: Positive for: Edema Neurological: Positive for: GCS=15, Speech Normal Skin: Positive for: Warm, Dry, Normal Color. Negative for: Rashes Psychiatric: Positive for: Alert, Oriented x 3, Normal Insight, Normal Concentration - Medications Active Medications: Active Medications Generic Name Dose Route Start Last Admin Trade Name Freq PRN Reason Stop Dose Admin Acetaminophen 650 mg 04/03/18 23:00 04/06/18 22:15 Tylenol 325mg Tab PO 650 mg Q6 PRN Administration Fever >100.4 F Docusate Sodium 100 mg 04/05/18 10:15 04/07/18 10:43 Colace PO Not Given DAILY KIMBERLEE Ferrous Sulfate 325 mg 04/05/18 10:15 04/07/18 09:03 Feosol PO 325 mg DAILY KIMBERLEE Administration Furosemide 20 mg 04/07/18 10:00 04/07/18 09:02 Lasix IVP 20 mg Q12 KIMBERLEE Administration Verapamil HCl 50 mg/ Sodium 100 mls @ 10 mls/hr 04/05/18 21:30 04/07/18 07:26 Chloride IV 10 mls/hr .Q10H KIMBERLEE Administration Protocol 5 MG/HR Dextrose 1,000 mls @ 30 mls/hr 04/06/18 10:45 04/06/18 11:00 Dextrose 5% In Water 1000 Ml IV 30 mls/hr .Q24H KIMBERLEE Administration Imipenem/Cilastatin Sodium 500 100 mls @ 100 mls/hr 04/06/18 19:00 04/07/18 02:23 mg/ Sodium Chloride IVPB 100 mls/hr Q8H KIMBERLEE Administration Protocol Vancomycin/Sodium Chloride 1 gm in 200 mls @ 133.333 mls/hr 04/06/18 21:00 21:19 Vancomycin 1 Gm/Ns 200 Ml IVPB 04/11/18 21:01 133.333 mls/hr Q12H KIMBERLEE Administration Ipratropium Angela 0.5 mg 04/04/18 14:00 04/07/18 07:33 Atrovent IH 0.5 mg RQ6 KIMBERLEE Administration Lidocaine 1 ea 04/05/18 10:15 04/07/18 09:03 Lidoderm TD 1 ea DAILY KIMBERLEE Administration Metoprolol Tartrate 50 mg 04/05/18 22:00 04/07/18 09:03 Lopressor PO 50 mg Q12H KIMBERLEE Administration Pantoprazole Sodium 40 mg 04/04/18 10:00 04/07/18 09:02 Protonix Inj IVP 40 mg DAILY KIMBERLEE Administration Senna/Docusate Sodium 1 tab 04/05/18 22:00 04/06/18 21:23 Senokot S 50 Mg-8.6 Mg PO Not Given HS KIMBERLEE - Patient Studies Lab Studies: Microbiology Studies 04/04/18 06:18 Blood Culture - Preliminary Blood-Venous NO GROWTH AFTER 3 DAYS 04/04/18 06:17 Blood Culture - Preliminary Blood-Venous NO GROWTH AFTER 3 DAYS 04/03/18 18:12 Urine Culture - Final Urine,Catheterized Coagulase Neg Staphylococcus Lab Studies 04/07/18 04/07/18 04/07/18 Range/Units 10:26 06:09 06:09 WBC (4.8-10.8) K/uL RBC (3.80-5.20) Mil/uL Hgb (11.0-16.0) g/dL Hct (34.0-47.0) % MCV (81.0-99.0) fL MCH (27.0-31.0) pg MCHC (33.0-37.0) g/dL RDW (11.5-14.5) % Plt Count (130-400) K/uL MPV (7.2-11.7) fL Neut % (Auto) (50.0-75.0) % Lymph % (Auto) (20.0-40.0) % Mercer % (Auto) (0.0-10.0) % Eos % (Auto) (0.0-4.0) % Baso % (Auto) (0.0-2.0) % Neut # (Auto) (1.8-7.0) K/uL Lymph # (Auto) (1.0-4.3) K/uL Mercer # (Auto) (0.0-0.8) K/uL Eos # (Auto) (0.0-0.7) K/uL Baso # (Auto) (0.0-0.2) K/uL Neutrophils % (Manual) (50-75) % Band Neutrophils % (0-2) % Lymphocytes % (Manual) (20-40) % Monocytes % (Manual) (0-10) % Platelet Estimate (NORMAL) Hypochromasia (manual) Poikilocytosis (manual Anisocytosis (manual) Tear Drop Cells Ovalocytes Puncture Site Rb pCO2 36 (35-45) mm/Hg pO2 80 (80-100) mm/Hg HCO3 25.8 (21-28) mmol/L ABG pH 7.45 (7.35-7.45) ABG Total CO2 26.1 (22-28) mmol/L ABG O2 Saturation 97.7 (95-98) % ABG Base Excess 1.1 (-2.0-3.0) mmol/L ABG Hemoglobin 10.0 L (11.7-17.4) g/dL ABG Carboxyhemoglobin 2.0 H (0.5-1.5) % POC ABG HHb (Measured) 2.2 (0.0-5.0) % ABG Methemoglobin 0.9 (0.0-3.0) % Gregory Test Na A-a O2 Difference 125.0 mm/Hg Respiratory Index 1.6 Hgb O2 Saturation 94.9 L (95.0-98.0) % Vent Mode Bipap FiO2 35.0 % Inspiratory BiPAP 14 Expiratory BiPAP 7 Sodium 138 (132-148) mmol/L Potassium 4.6 (3.6-5.2) mmol/L Chloride 101 (98-107) mmol/L Carbon Dioxide 26 (22-30) mmol/L Anion Gap 16 (10-20) BUN 39 H (7-17) mg/dL Creatinine 1.5 H (0.7-1.2) mg/dL Est GFR ( Amer) 40 Est GFR (Non-Af Amer) 33 Random Glucose 136 H (65-105) mg/dL Calcium 8.8 (8.6-10.4) mg/dl Phosphorus 4.6 H (2.5-4.5) mg/dL Magnesium 2.0 (1.6-2.3) mg/dL Total Bilirubin 2.3 H (0.2-1.3) mg/dL AST 49 H D (14-36) U/L ALT 43 (9-52) U/L Alkaline Phosphatase 206 H D (38-126) U/L Total Protein 5.8 L (6.3-8.3) g/dL Albumin 2.9 L (3.5-5.0) g/dL Globulin 2.9 (2.2-3.9) gm/dL Albumin/Globulin Ratio 1.0 (1.0-2.1) Vancomycin Trough 14.7 H (5.0-10.0) ug/mL 04/07/18 Range/Units 06:08 WBC 4.1 L (4.8-10.8) K/uL RBC 3.70 L (3.80-5.20) Mil/uL Hgb 9.9 L (11.0-16.0) g/dL Hct 30.5 L (34.0-47.0) % MCV 82.4 (81.0-99.0) fL MCH 26.8 L (27.0-31.0) pg MCHC 32.5 L (33.0-37.0) g/dL RDW 18.6 H (11.5-14.5) % Plt Count 83 L (130-400) K/uL MPV 9.3 (7.2-11.7) fL Neut % (Auto) 75.2 H (50.0-75.0) % Lymph % (Auto) 7.2 L (20.0-40.0) % Mercer % (Auto) 16.5 H (0.0-10.0) % Eos % (Auto) 0.7 (0.0-4.0) % Baso % (Auto) 0.4 (0.0-2.0) % Neut # (Auto) 3.1 (1.8-7.0) K/uL Lymph # (Auto) 0.3 L (1.0-4.3) K/uL Mercer # (Auto) 0.7 (0.0-0.8) K/uL Eos # (Auto) 0.0 (0.0-0.7) K/uL Baso # (Auto) 0.0 (0.0-0.2) K/uL Neutrophils % (Manual) 75 (50-75) % Band Neutrophils % 2 (0-2) % Lymphocytes % (Manual) 10 L (20-40) % Monocytes % (Manual) 13 H (0-10) % Platelet Estimate Decreased L (NORMAL) Hypochromasia (manual) Slight Poikilocytosis (manual Slight Anisocytosis (manual) Slight Tear Drop Cells Slight Ovalocytes Slight Puncture Site pCO2 (35-45) mm/Hg pO2 (80-100) mm/Hg HCO3 (21-28) mmol/L ABG pH (7.35-7.45) ABG Total CO2 (22-28) mmol/L ABG O2 Saturation (95-98) % ABG Base Excess (-2.0-3.0) mmol/L ABG Hemoglobin (11.7-17.4) g/dL ABG Carboxyhemoglobin (0.5-1.5) % POC ABG HHb (Measured) (0.0-5.0) % ABG Methemoglobin (0.0-3.0) % Gregory Test A-a O2 Difference mm/Hg Respiratory Index Hgb O2 Saturation (95.0-98.0) % Vent Mode FiO2 % Inspiratory BiPAP Expiratory BiPAP Sodium (132-148) mmol/L Potassium (3.6-5.2) mmol/L Chloride (98-107) mmol/L Carbon Dioxide (22-30) mmol/L Anion Gap (10-20) BUN (7-17) mg/dL Creatinine (0.7-1.2) mg/dL Est GFR ( Amer) Est GFR (Non-Af Amer) Random Glucose (65-105) mg/dL Calcium (8.6-10.4) mg/dl Phosphorus (2.5-4.5) mg/dL Magnesium (1.6-2.3) mg/dL Total Bilirubin (0.2-1.3) mg/dL AST (14-36) U/L ALT (9-52) U/L Alkaline Phosphatase (38-126) U/L Total Protein (6.3-8.3) g/dL Albumin (3.5-5.0) g/dL Globulin (2.2-3.9) gm/dL Albumin/Globulin Ratio (1.0-2.1) Vancomycin Trough (5.0-10.0) ug/mL Laboratory Results - last 24 hr 04/07/18 04/07/18 04/07/18 06:08 06:09 06:09 WBC 4.1 L RBC 3.70 L Hgb 9.9 L Hct 30.5 L MCV 82.4 MCH 26.8 L MCHC 32.5 L RDW 18.6 H Plt Count 83 L MPV 9.3 Neut % (Auto) 75.2 H Lymph % (Auto) 7.2 L Mercer % (Auto) 16.5 H Eos % (Auto) 0.7 Baso % (Auto) 0.4 Neut # (Auto) 3.1 Lymph # (Auto) 0.3 L Mercer # (Auto) 0.7 Eos # (Auto) 0.0 Baso # (Auto) 0.0 Neutrophils % (Manual) 75 Band Neutrophils % 2 Lymphocytes % (Manual) 10 L Monocytes % (Manual) 13 H Platelet Estimate Decreased L Hypochromasia (manual) Slight Poikilocytosis (manual Slight Anisocytosis (manual) Slight Tear Drop Cells Slight Ovalocytes Slight Puncture Site pCO2 pO2 HCO3 ABG pH ABG Total CO2 ABG O2 Saturation ABG Base Excess ABG Hemoglobin ABG Carboxyhemoglobin POC ABG HHb (Measured) ABG Methemoglobin Gregory Test A-a O2 Difference Respiratory Index Hgb O2 Saturation Vent Mode FiO2 Inspiratory BiPAP Expiratory BiPAP Sodium 138 Potassium 4.6 Chloride 101 Carbon Dioxide 26 Anion Gap 16 BUN 39 H Creatinine 1.5 H Est GFR ( Amer) 40 Est GFR (Non-Af Amer) 33 Random Glucose 136 H Calcium 8.8 Phosphorus 4.6 H Magnesium 2.0 Total Bilirubin 2.3 H AST 49 H D ALT 43 Alkaline Phosphatase 206 H D Total Protein 5.8 L Albumin 2.9 L Globulin 2.9 Albumin/Globulin Ratio 1.0 Vancomycin Trough 14.7 H 04/07/18 10:26 WBC RBC Hgb Hct MCV MCH MCHC RDW Plt Count MPV Neut % (Auto) Lymph % (Auto) Mercer % (Auto) Eos % (Auto) Baso % (Auto) Neut # (Auto) Lymph # (Auto) Mercer # (Auto) Eos # (Auto) Baso # (Auto) Neutrophils % (Manual) Band Neutrophils % Lymphocytes % (Manual) Monocytes % (Manual) Platelet Estimate Hypochromasia (manual) Poikilocytosis (manual Anisocytosis (manual) Tear Drop Cells Ovalocytes Puncture Site Rb pCO2 36 pO2 80 HCO3 25.8 ABG pH 7.45 ABG Total CO2 26.1 ABG O2 Saturation 97.7 ABG Base Excess 1.1 ABG Hemoglobin 10.0 L ABG Carboxyhemoglobin 2.0 H POC ABG HHb (Measured) 2.2 ABG Methemoglobin 0.9 Gregory Test Na A-a O2 Difference 125.0 Respiratory Index 1.6 Hgb O2 Saturation 94.9 L Vent Mode Bipap FiO2 35.0 Inspiratory BiPAP 14 Expiratory BiPAP 7 Sodium Potassium Chloride Carbon Dioxide Anion Gap BUN Creatinine Est GFR ( Amer) Est GFR (Non-Af Amer) Random Glucose Calcium Phosphorus Magnesium Total Bilirubin AST ALT Alkaline Phosphatase Total Protein Albumin Globulin Albumin/Globulin Ratio Vancomycin Trough Review of Systems - Constitutional Constitutional: absent: Fever, Chills - Cardiovascular Cardiovascular: Leg Edema, Orthopnea. absent: Chest Pain, Palpitations - Respiratory Respiratory: Cough, Dyspnea - Gastrointestinal Gastrointestinal: absent: Abdominal Pain, Diarrhea, Nausea - Genitourinary Genitourinary: absent: Dysuria - Neurological Neurological: Headaches. absent: Dizziness Critical Care Progress Note - Prophylaxis GI Prophylaxis GI: PPI - Nutrition Nutrition: Nutrition Category Date Time Status NPO Diet [DIET] Diets 04/06/18 Breakfast Active Assessment/Plan - Assessment and Plan (Free Text) Assessment: 87 yo F admitted with hypoxemic respiratory failure 2/2 CHF exacerbation. 1. CHF exacerbation- EF /~44% -pBNP 23,000 -lasix 20mg BID -BiPAP, keep spO2>92% -cardio consult Dr. Gaitan 2. A. Fib -hold anticoag due to hx of GI bleed -verapamil drip -metoprolol 50mg q12 3. Hypoxemic respiratory failure -keep pt on BiPap -ipratropium q6 4. Right sided apical PNA -immipenem 500mg q8, vanco q24 -CXR 5. PUD - endoscopy done on 03/19/18 showed non-bleeding esophageal ulcer, esophagitis, and non-bleeding duodenal ulcer with no stigmata of bleeding - Continue protonix 40 IVP qd 6. Constipation - Senokot, colace 7. UTI - urine culture positive for coagulase negative staph - Continue Abx 8. Pancytopenia - Pt transfused PRBC on admission - Hgb stable at 10.3 this am - Continue iron supplements - negative blood cultures - Bone marrow biopsy done on 03/24/18 showed hypercellular marrow with maturing trilineage hematopoeisis and a decreased M:E ratio. Stoarge iron present. No evidence of overt myeodysplasia, plasma cell myeloma or lymphoma. Report in chart 9. Sepsis likely 2/2 UTI - Afebrile overnight. - Pt is noted ot be pancytopenic. WBC count 4.6 this am with left shift - Urine culture positive - immipenem 500mg q8, vanco 1g q24 Ppx - SCDs - Protonix 40mg - Oral AC contraindicated due to recent GI bleed goals of care discusse w family\ case discussed w/ Dr. Crum <Luigi Crum S - Last Filed: 04/07/18 18:29> CCU Objective - Vital Signs / Intake & Output Vital Signs (Last 4 hours): Vital Signs Temp Pulse Resp BP Pulse Ox 04/07/18 17:06 118 H 26 H 108/64 96 04/07/18 17:00 96.7 F L 119 H 21 108/64 98 04/07/18 16:04 119 H 32 H 110/65 97 04/07/18 16:00 104 H 24 97 04/07/18 15:46 101 H 04/07/18 15:04 113 H 31 H 106/70 97 04/07/18 15:00 112 H 28 H 97 Intake and Output (Last 8hrs): Intake & Output 04/07/18 04/07/18 04/07/18 06:59 14:59 22:59 Intake Total 400 600 120 Output Total 900 200 Balance -500 400 120 Weight 148 lb 8 oz Intake: Intake, IV Amount 400 600 120 Left Forearm 160 120 Right Wrist 240 480 120 Output: Urine 900 200 Urine, Voided 900 200 - Medications Active Medications: Active Medications Generic Name Dose Route Start Last Admin Trade Name Freq PRN Reason Stop Dose Admin Acetaminophen 650 mg 04/03/18 23:00 04/07/18 17:39 Tylenol 325mg Tab PO 650 mg Q6 PRN Administration Fever >100.4 F Docusate Sodium 100 mg 04/05/18 10:15 04/07/18 10:43 Colace PO Not Given DAILY KIMBERLEE Ferrous Sulfate 325 mg 04/05/18 10:15 04/07/18 09:03 Feosol PO 325 mg DAILY KIMBERLEE Administration Folic Acid 1 mg 04/07/18 16:45 04/07/18 17:39 Folic Acid PO 1 mg DAILY KIMBERLEE Administration Furosemide 20 mg 04/07/18 10:00 04/07/18 09:02 Lasix IVP 20 mg Q12 KIMBERLEE Administration Dextrose 1,000 mls @ 30 mls/hr 04/06/18 10:45 04/06/18 11:00 Dextrose 5% In Water 1000 Ml IV 30 mls/hr .Q24H KIMBERLEE Administration Imipenem/Cilastatin Sodium 500 100 mls @ 100 mls/hr 04/07/18 23:00 mg/ Sodium Chloride IVPB Q12H [facility] Protocol Ipratropium Angela 0.5 mg 04/04/18 14:00 04/07/18 14:05 Atrovent IH 0.5 mg RQ6 KIMBERLEE Administration Lidocaine 1 ea 04/05/18 10:15 04/07/18 09:03 Lidoderm TD 1 ea DAILY KIMBERLEE Administration Metoprolol Tartrate 50 mg 04/05/18 22:00 04/07/18 09:03 Lopressor PO 50 mg Q12H KIMBERLEE Administration Pantoprazole Sodium 40 mg 04/08/18 10:00 Protonix Ec Tab PO DAILY KIMBERLEE Senna/Docusate Sodium 1 tab 04/05/18 22:00 04/06/18 21:23 Senokot S 50 Mg-8.6 Mg PO Not Given HS KIMBERLEE - Patient Studies Lab Studies: Microbiology Studies 04/04/18 06:18 Blood Culture - Preliminary Blood-Venous NO GROWTH AFTER 3 DAYS 04/04/18 06:17 Blood Culture - Preliminary Blood-Venous NO GROWTH AFTER 3 DAYS Lab Studies 04/07/18 04/07/18 04/07/18 Range/Units 10:26 06:09 06:09 WBC (4.8-10.8) K/uL RBC (3.80-5.20) Mil/uL Hgb (11.0-16.0) g/dL Hct (34.0-47.0) % MCV (81.0-99.0) fL MCH (27.0-31.0) pg MCHC (33.0-37.0) g/dL RDW (11.5-14.5) % Plt Count (130-400) K/uL MPV (7.2-11.7) fL Neut % (Auto) (50.0-75.0) % Lymph % (Auto) (20.0-40.0) % Mercer % (Auto) (0.0-10.0) % Eos % (Auto) (0.0-4.0) % Baso % (Auto) (0.0-2.0) % Neut # (Auto) (1.8-7.0) K/uL Lymph # (Auto) (1.0-4.3) K/uL Mercer # (Auto) (0.0-0.8) K/uL Eos # (Auto) (0.0-0.7) K/uL Baso # (Auto) (0.0-0.2) K/uL Neutrophils % (Manual) (50-75) % Band Neutrophils % (0-2) % Lymphocytes % (Manual) (20-40) % Monocytes % (Manual) (0-10) % Platelet Estimate (NORMAL) Hypochromasia (manual) Poikilocytosis (manual Anisocytosis (manual) Tear Drop Cells Ovalocytes Puncture Site Rb pCO2 36 (35-45) mm/Hg pO2 80 (80-100) mm/Hg HCO3 25.8 (21-28) mmol/L ABG pH 7.45 (7.35-7.45) ABG Total CO2 26.1 (22-28) mmol/L ABG O2 Saturation 97.7 (95-98) % ABG Base Excess 1.1 (-2.0-3.0) mmol/L ABG Hemoglobin 10.0 L (11.7-17.4) g/dL ABG Carboxyhemoglobin 2.0 H (0.5-1.5) % POC ABG HHb (Measured) 2.2 (0.0-5.0) % ABG Methemoglobin 0.9 (0.0-3.0) % Gregory Test Na A-a O2 Difference 125.0 mm/Hg Respiratory Index 1.6 Hgb O2 Saturation 94.9 L (95.0-98.0) % Vent Mode Bipap FiO2 35.0 % Inspiratory BiPAP 14 Expiratory BiPAP 7 Sodium 138 (132-148) mmol/L Potassium 4.6 (3.6-5.2) mmol/L Chloride 101 (98-107) mmol/L Carbon Dioxide 26 (22-30) mmol/L Anion Gap 16 (10-20) BUN 39 H (7-17) mg/dL Creatinine 1.5 H (0.7-1.2) mg/dL Est GFR ( Amer) 40 Est GFR (Non-Af Amer) 33 Random Glucose 136 H (65-105) mg/dL Calcium 8.8 (8.6-10.4) mg/dl Phosphorus 4.6 H (2.5-4.5) mg/dL Magnesium 2.0 (1.6-2.3) mg/dL Total Bilirubin 2.3 H (0.2-1.3) mg/dL AST 49 H D (14-36) U/L ALT 43 (9-52) U/L Alkaline Phosphatase 206 H D (38-126) U/L Total Protein 5.8 L (6.3-8.3) g/dL Albumin 2.9 L (3.5-5.0) g/dL Globulin 2.9 (2.2-3.9) gm/dL Albumin/Globulin Ratio 1.0 (1.0-2.1) Vancomycin Trough 14.7 H (5.0-10.0) ug/mL 04/07/18 Range/Units 06:08 WBC 4.1 L (4.8-10.8) K/uL RBC 3.70 L (3.80-5.20) Mil/uL Hgb 9.9 L (11.0-16.0) g/dL Hct 30.5 L (34.0-47.0) % MCV 82.4 (81.0-99.0) fL MCH 26.8 L (27.0-31.0) pg MCHC 32.5 L (33.0-37.0) g/dL RDW 18.6 H (11.5-14.5) % Plt Count 83 L (130-400) K/uL MPV 9.3 (7.2-11.7) fL Neut % (Auto) 75.2 H (50.0-75.0) % Lymph % (Auto) 7.2 L (20.0-40.0) % Mercer % (Auto) 16.5 H (0.0-10.0) % Eos % (Auto) 0.7 (0.0-4.0) % Baso % (Auto) 0.4 (0.0-2.0) % Neut # (Auto) 3.1 (1.8-7.0) K/uL Lymph # (Auto) 0.3 L (1.0-4.3) K/uL Mercer # (Auto) 0.7 (0.0-0.8) K/uL Eos # (Auto) 0.0 (0.0-0.7) K/uL Baso # (Auto) 0.0 (0.0-0.2) K/uL Neutrophils % (Manual) 75 (50-75) % Band Neutrophils % 2 (0-2) % Lymphocytes % (Manual) 10 L (20-40) % Monocytes % (Manual) 13 H (0-10) % Platelet Estimate Decreased L (NORMAL) Hypochromasia (manual) Slight Poikilocytosis (manual Slight Anisocytosis (manual) Slight Tear Drop Cells Slight Ovalocytes Slight Puncture Site pCO2 (35-45) mm/Hg pO2 (80-100) mm/Hg HCO3 (21-28) mmol/L ABG pH (7.35-7.45) ABG Total CO2 (22-28) mmol/L ABG O2 Saturation (95-98) % ABG Base Excess (-2.0-3.0) mmol/L ABG Hemoglobin (11.7-17.4) g/dL ABG Carboxyhemoglobin (0.5-1.5) % POC ABG HHb (Measured) (0.0-5.0) % ABG Methemoglobin (0.0-3.0) % Gregory Test A-a O2 Difference mm/Hg Respiratory Index Hgb O2 Saturation (95.0-98.0) % Vent Mode FiO2 % Inspiratory BiPAP Expiratory BiPAP Sodium (132-148) mmol/L Potassium (3.6-5.2) mmol/L Chloride (98-107) mmol/L Carbon Dioxide (22-30) mmol/L Anion Gap (10-20) BUN (7-17) mg/dL Creatinine (0.7-1.2) mg/dL Est GFR ( Amer) Est GFR (Non-Af Amer) Random Glucose (65-105) mg/dL Calcium (8.6-10.4) mg/dl Phosphorus (2.5-4.5) mg/dL Magnesium (1.6-2.3) mg/dL Total Bilirubin (0.2-1.3) mg/dL AST (14-36) U/L ALT (9-52) U/L Alkaline Phosphatase (38-126) U/L Total Protein (6.3-8.3) g/dL Albumin (3.5-5.0) g/dL Globulin (2.2-3.9) gm/dL Albumin/Globulin Ratio (1.0-2.1) Vancomycin Trough (5.0-10.0) ug/mL Laboratory Results - last 24 hr 04/07/18 04/07/18 04/07/18 06:08 06:09 06:09 WBC 4.1 L RBC 3.70 L Hgb 9.9 L Hct 30.5 L MCV 82.4 MCH 26.8 L MCHC 32.5 L RDW 18.6 H Plt Count 83 L MPV 9.3 Neut % (Auto) 75.2 H Lymph % (Auto) 7.2 L Mercer % (Auto) 16.5 H Eos % (Auto) 0.7 Baso % (Auto) 0.4 Neut # (Auto) 3.1 Lymph # (Auto) 0.3 L Mercer # (Auto) 0.7 Eos # (Auto) 0.0 Baso # (Auto) 0.0 Neutrophils % (Manual) 75 Band Neutrophils % 2 Lymphocytes % (Manual) 10 L Monocytes % (Manual) 13 H Platelet Estimate Decreased L Hypochromasia (manual) Slight Poikilocytosis (manual Slight Anisocytosis (manual) Slight Tear Drop Cells Slight Ovalocytes Slight Puncture Site pCO2 pO2 HCO3 ABG pH ABG Total CO2 ABG O2 Saturation ABG Base Excess ABG Hemoglobin ABG Carboxyhemoglobin POC ABG HHb (Measured) ABG Methemoglobin Gregory Test A-a O2 Difference Respiratory Index Hgb O2 Saturation Vent Mode FiO2 Inspiratory BiPAP Expiratory BiPAP Sodium 138 Potassium 4.6 Chloride 101 Carbon Dioxide 26 Anion Gap 16 BUN 39 H Creatinine 1.5 H Est GFR ( Amer) 40 Est GFR (Non-Af Amer) 33 Random Glucose 136 H Calcium 8.8 Phosphorus 4.6 H Magnesium 2.0 Total Bilirubin 2.3 H AST 49 H D ALT 43 Alkaline Phosphatase 206 H D Total Protein 5.8 L Albumin 2.9 L Globulin 2.9 Albumin/Globulin Ratio 1.0 Vancomycin Trough 14.7 H 04/07/18 10:26 WBC RBC Hgb Hct MCV MCH MCHC RDW Plt Count MPV Neut % (Auto) Lymph % (Auto) Mercer % (Auto) Eos % (Auto) Baso % (Auto) Neut # (Auto) Lymph # (Auto) Mercer # (Auto) Eos # (Auto) Baso # (Auto) Neutrophils % (Manual) Band Neutrophils % Lymphocytes % (Manual) Monocytes % (Manual) Platelet Estimate Hypochromasia (manual) Poikilocytosis (manual Anisocytosis (manual) Tear Drop Cells Ovalocytes Puncture Site Rb pCO2 36 pO2 80 HCO3 25.8 ABG pH 7.45 ABG Total CO2 26.1 ABG O2 Saturation 97.7 ABG Base Excess 1.1 ABG Hemoglobin 10.0 L ABG Carboxyhemoglobin 2.0 H POC ABG HHb (Measured) 2.2 ABG Methemoglobin 0.9 Gregory Test Na A-a O2 Difference 125.0 Respiratory Index 1.6 Hgb O2 Saturation 94.9 L Vent Mode Bipap FiO2 35.0 Inspiratory BiPAP 14 Expiratory BiPAP 7 Sodium Potassium Chloride Carbon Dioxide Anion Gap BUN Creatinine Est GFR ( Amer) Est GFR (Non-Af Amer) Random Glucose Calcium Phosphorus Magnesium Total Bilirubin AST ALT Alkaline Phosphatase Total Protein Albumin Globulin Albumin/Globulin Ratio Vancomycin Trough Critical Care Progress Note - Nutrition Nutrition: Nutrition Category Date Time Status NPO Diet [DIET] Diets 04/06/18 Breakfast Active Attending/Attestation - Attestation I have personally seen and examined this patient.: Yes I have fully participated in the care of the patient.: Yes I have reviewed all pertinent clinical information: Yes Notes (Text): 04/07/18 18:27 patient seen and examined in the intensive care unit. He remained on BiPAP/ less tachypneic Continue antibiotic Patient is off verapamil drip Digoxin and Cardizem as needed
[2018-04-07] MEDS ORDERED: Digoxin 500 mcg/2ml (0.5 mg/2ml) Inj IVP ONE ×2 (14:07→19:30)
--- NOTE | 2018-04-07 16:36 | CP.PCM.PN ---
Subjective - Date & Time of Evaluation Date of Evaluation: 04/07/18 Time of Evaluation: 16:32 - Subjective Subjective: INFECTIOUS DISEASE ICU PROGRESS NOTE LUCITA WETZEL MD, [id number] 04/07/2018 87 year old female with past medical history of A. fib, CAD s/p LAD stents, HTN, pacemaker, s/p TAVR x 2-LAST ONE 3 YRS AGO, is admitted from rehab WITH TEMP 102, for acute respiratory distress 2/2 to CHF exacerbation; pt was off lasix in rehab ~2 wks. A. Fib w/ RVR overnight; HR in 130s; on Verapamil drip, Unable to maintain spO2 off BiPAP, FiO2 35%, [id number]. CXR APPEARS TO BE CLEARING, REVIEWED WITH [employer] AND PTS SON, WITH NORMAL WBC AND NO MORE ELEVATED TEMPS AND NEG BLOOD C/S, THEN D/C VANCOMYCIN ADJUST PRIMAXIN ACCORDINGLY PER eGFR. PTS CARDIAC AND RESP ISSUES NOTED. Objective - Vital Signs/Intake and Output Vital Signs (last 24 hours): Temp Pulse Resp BP Pulse Ox 98.9 F 101 H 26 H 101/70 96 04/07/18 14:00 04/07/18 15:46 04/07/18 14:00 04/07/18 14:00 04/07/18 14:00 Intake and Output: 04/07/18 04/07/18 06:59 18:59 Intake Total 910 660 Output Total 900 200 Balance 10 460 - Medications Medications: Current Medications Acetaminophen (Tylenol 325mg Tab) 650 mg PO Q6 PRN PRN Reason: Fever >100.4 F Last Admin: 04/07/18 11:48 Dose: 650 mg Docusate Sodium (Colace) 100 mg PO DAILY [facility] Last Admin: 04/07/18 10:43 Dose: Not Given Ferrous Sulfate (Feosol) 325 mg PO DAILY [facility] Last Admin: 04/07/18 09:03 Dose: 325 mg Furosemide (Lasix) 20 mg IVP Q12 [facility] Last Admin: 04/07/18 09:02 Dose: 20 mg Verapamil HCl 50 mg/ Sodium (Chloride) 100 mls @ 10 mls/hr IV .Q10H [facility]; 5 MG/ HR PRN Reason: Protocol Last Admin: 04/07/18 07:26 Dose: 10 mls/hr Dextrose (Dextrose 5% In Water 1000 Ml) 1,000 mls @ 30 mls/hr IV .Q24H [facility] Last Admin: 04/06/18 11:00 Dose: 30 mls/hr Imipenem/Cilastatin Sodium 500 (mg/ Sodium Chloride) 100 mls @ 100 mls/hr IVPB Q12H [facility] PRN Reason: Protocol Ipratropium [place] (Atrovent) 0.5 mg IH RQ6 [facility] Last Admin: 04/07/18 14:05 Dose: 0.5 mg Lidocaine (Lidoderm) 1 ea TD DAILY [facility] Last Admin: 04/07/18 09:03 Dose: 1 ea Metoprolol Tartrate (Lopressor) 50 mg PO Q12H [facility] Last Admin: 04/07/18 09:03 Dose: 50 mg Pantoprazole Sodium (Protonix Ec Tab) 40 mg PO DAILY [facility] Senna/Docusate Sodium (Senokot S 50 Mg-8.6 Mg) 1 tab PO HS [facility] Last Admin: 04/06/18 21:23 Dose: Not Given - Labs Labs: 04/07/18 06:08 04/07/18 06:09 PT 15.7 SECONDS (9.7-12.2) H D 04/06/18 06:15 INR 1.4 D 04/06/18 06:15 APTT 34 SECONDS (21-34) D 04/06/18 06:15 Assessment and Plan (1) Pancytopenia Status: Acute (2) HAP (hospital-acquired pneumonia) Status: Suspected (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
[2018-04-07] MEDS ORDERED: Digoxin 250 mcg (0.25 mg) Tab PO ONE (18:00)
--- NOTE | 2018-04-07 18:36 | CP.PCM.CON ---
History of Present Illness - History of Present Illness History of Present Illness: 87 year old female with a history of CAD s/p stent, afib with pacemaker, TAVR x 2 on antiplatelet and anticoagulation, pancytopenia s/p bone marrow biopsy, admitted with shortness of breath and pneumonia. The patient is known to me from her prior admission. She had symptomatic anemia and pancytopenia requiring transfusion support. She underwent a bone marrow biopsy by me which revealed a slightly hypercellular marrow with no evidence of malignancy or myelodysplasia. Past medical history: CAD s/p stent, afib with pacemaker, TAVR Past surgical history: Pacemaker, TAVR Family history: Denies hematologic and oncologic problems Social history: Denies tobacco, alcohol, and illicit drug use. Allergies: Shellfish, statins Review of systems: All remaining review of systems including HEENT, cardiovascular, respiratory, gastrointestinal, genitourinary, musculoskeletal, dermatologic, neurologic, and psychiatric are negative unless mentioned in the HPI. Past Patient History - Past Medical History & Family History Past Medical History?: Yes - Past Social History Smoking Status: Never Smoked Chewing Tobacco Use: No Cigar Use: No Drugs: Denies Domestic Violence: Negative - CARDIAC Hx Cardiac Disorders: Yes Hx Atrial Fibrillation: Yes Hx Congestive Heart Failure: Yes Hx Hypercholesterolemia: Yes Hx Hypertension: Yes Hx Pacemaker: Yes Other/Comment: TAVR X 2 - PULMONARY Hx Respiratory Disorders: Yes - NEUROLOGICAL Hx Neurological Disorder: No - HEENT Hx HEENT Problems: No - RENAL Hx Chronic Kidney Disease: Yes - ENDOCRINE/METABOLIC Hx Endocrine Disorders: No - HEMATOLOGICAL/ONCOLOGICAL Hx Blood Disorders: Yes Hx Anemia: Yes Hx Blood Transfusions: Yes - INTEGUMENTARY Hx Dermatological Problems: No - MUSCULOSKELETAL/RHEUMATOLOGICAL Hx Musculoskeletal Disorders: Yes Hx Arthritis: Yes Hx Falls: Yes - GASTROINTESTINAL Hx Gastrointestinal Disorders: Yes Hx Ulcer: Yes (duodenal) - GENITOURINARY/GYNECOLOGICAL Hx Genitourinary Disorders: No - PSYCHIATRIC Hx Psychophysiologic Disorder: No Hx Substance Use: No - SURGICAL HISTORY Hx Surgeries: Yes Hx Coronary Stent: Yes (x2) Hx Valve Replacement: Yes Other/Comment: permanent pacemaker - ANESTHESIA Hx Anesthesia: Yes Hx Anesthesia Reactions: No Hx Malignant Hyperthermia: No Has any member of the family had a problem w/ anesthesia?: No Meds Allergies/Adverse Reactions: Allergies Allergy/AdvReac Type Severity Reaction Status Date / Time shellfish derived Allergy Intermediate RASH Verified 04/03/18 16:13 statins Allergy Intermediate RASH Uncoded 04/03/18 16:13 - Medications Medications: Current Medications Acetaminophen (Tylenol 325mg Tab) 650 mg PO Q6 PRN PRN Reason: Fever >100.4 F Last Admin: 04/07/18 17:39 Dose: 650 mg Docusate Sodium (Colace) 100 mg PO DAILY [facility] Last Admin: 04/07/18 10:43 Dose: Not Given Ferrous Sulfate (Feosol) 325 mg PO DAILY [facility] Last Admin: 04/07/18 09:03 Dose: 325 mg Folic Acid (Folic Acid) 1 mg PO DAILY [facility] Last Admin: 04/07/18 17:39 Dose: 1 mg Furosemide (Lasix) 20 mg IVP Q12 [facility] Last Admin: 04/07/18 09:02 Dose: 20 mg Dextrose (Dextrose 5% In Water 1000 Ml) 1,000 mls @ 30 mls/hr IV .Q24H [facility] Last Admin: 04/06/18 11:00 Dose: 30 mls/hr Imipenem/Cilastatin Sodium 500 (mg/ Sodium Chloride) 100 mls @ 100 mls/hr IVPB Q12H [facility] PRN Reason: Protocol Ipratropium [place] (Atrovent) 0.5 mg IH RQ6 [facility] Last Admin: 04/07/18 14:05 Dose: 0.5 mg Lidocaine (Lidoderm) 1 ea TD DAILY [facility] Last Admin: 04/07/18 09:03 Dose: 1 ea Metoprolol Tartrate (Lopressor) 50 mg PO Q12H [facility] Last Admin: 04/07/18 09:03 Dose: 50 mg Pantoprazole Sodium (Protonix Ec Tab) 40 mg PO DAILY [facility] Senna/Docusate Sodium (Senokot S 50 Mg-8.6 Mg) 1 tab PO HS [facility] Last Admin: 04/06/18 21:23 Dose: Not Given Physical Exam - Head Exam Head Exam: ATRAUMATIC - Eye Exam Eye Exam: Normal appearance - ENT Exam ENT Exam: Mucous Membranes Dry - Respiratory Exam Respiratory Exam: Respiratory Distress - Cardiovascular Exam Cardiovascular Exam: +S1, +S2 - GI/Abdominal Exam GI & Abdominal Exam: Normal Bowel Sounds - Extremities Exam Extremities exam: Positive for: pedal edema Results - Vital Signs Recent Vital Signs: Last Vital Signs Temp 96.7 F L 04/07/18 17:00 Pulse 118 H 04/07/18 17:06 Resp 26 H 04/07/18 17:06 BP 108/64 04/07/18 17:06 Pulse Ox 96 04/07/18 17:06 - Labs Result Diagrams: 04/09/18 06:11 04/09/18 06:11 Labs: Laboratory Results - last 24 hr 04/07/18 04/07/18 04/07/18 06:08 06:09 06:09 WBC 4.1 L RBC 3.70 L Hgb 9.9 L Hct 30.5 L MCV 82.4 MCH 26.8 L MCHC 32.5 L RDW 18.6 H Plt Count 83 L MPV 9.3 Neut % (Auto) 75.2 H Lymph % (Auto) 7.2 L [place] % (Auto) 16.5 H Eos % (Auto) 0.7 Baso % (Auto) 0.4 Neut # (Auto) 3.1 Lymph # (Auto) 0.3 L [place] # (Auto) 0.7 Eos # (Auto) 0.0 Baso # (Auto) 0.0 Neutrophils % (Manual) 75 Band Neutrophils % 2 Lymphocytes % (Manual) 10 L Monocytes % (Manual) 13 H Platelet Estimate Decreased L Hypochromasia (manual) Slight Poikilocytosis (manual Slight Anisocytosis (manual) Slight Tear Drop Cells Slight Ovalocytes Slight Puncture Site pCO2 pO2 HCO3 ABG pH ABG Total CO2 ABG O2 Saturation ABG Base Excess ABG Hemoglobin ABG Carboxyhemoglobin POC ABG HHb (Measured) ABG Methemoglobin Gregory Test A-a O2 Difference Respiratory Index Hgb O2 Saturation Vent Mode FiO2 Inspiratory BiPAP Expiratory BiPAP Sodium 138 Potassium 4.6 Chloride 101 Carbon Dioxide 26 Anion Gap 16 BUN 39 H Creatinine 1.5 H Est GFR ( Amer) 40 Est GFR (Non-Af Amer) 33 Random Glucose 136 H Calcium 8.8 Phosphorus 4.6 H Magnesium 2.0 Total Bilirubin 2.3 H AST 49 H D ALT 43 Alkaline Phosphatase 206 H D Total Protein 5.8 L Albumin 2.9 L Globulin 2.9 Albumin/Globulin Ratio 1.0 Vancomycin Trough 14.7 H 04/07/18 10:26 WBC RBC Hgb Hct MCV MCH MCHC RDW Plt Count MPV Neut % (Auto) Lymph % (Auto) [place] % (Auto) Eos % (Auto) Baso % (Auto) Neut # (Auto) Lymph # (Auto) [place] # (Auto) Eos # (Auto) Baso # (Auto) Neutrophils % (Manual) Band Neutrophils % Lymphocytes % (Manual) Monocytes % (Manual) Platelet Estimate Hypochromasia (manual) Poikilocytosis (manual Anisocytosis (manual) Tear Drop Cells Ovalocytes Puncture Site Rb pCO2 36 pO2 80 HCO3 25.8 ABG pH 7.45 ABG Total CO2 26.1 ABG O2 Saturation 97.7 ABG Base Excess 1.1 ABG Hemoglobin 10.0 L ABG Carboxyhemoglobin 2.0 H POC ABG HHb (Measured) 2.2 ABG Methemoglobin 0.9 Gregory Test Na A-a O2 Difference 125.0 Respiratory Index 1.6 Hgb O2 Saturation 94.9 L Vent Mode Bipap FiO2 35.0 Inspiratory BiPAP 14 Expiratory BiPAP 7 Sodium Potassium Chloride Carbon Dioxide Anion Gap BUN Creatinine Est GFR ( Amer) Est GFR (Non-Af Amer) Random Glucose Calcium Phosphorus Magnesium Total Bilirubin AST ALT Alkaline Phosphatase Total Protein Albumin Globulin Albumin/Globulin Ratio Vancomycin Trough Assessment & Plan (1) Anemia Assessment and Plan: chronic disease, mild CKD no iron/b12/folate deficiency haptoglobin not decreased; not hemolysis ? intermittent GI blood loss no evidence of bone marrow pathology Status: Acute (2) Thrombocytopenia Assessment and Plan: mild improved ? related to infection ? medication no bone marrow pathology Thank you for this interesting consult. Status: Acute
--- NOTE | 2018-04-07 19:27 | CP.PCM.PN ---
Subjective - Date & Time of Evaluation Date of Evaluation: 04/07/18 Time of Evaluation: 19:26 - Subjective Subjective: Patient is still having increasing his will be. On BiPAP. Dry mouth noted. Patient is awake and responding. But increasing as will be noted. Weakness present. Coughing minimally noted. Thick mucus present On examination: Vital signs stable. But the tachycardia noted. Hypoxia minimally noted. This morning blood gas analysis reviewed Chest bilateral expiratory wheezing noted irregular heart sound. Abdomen soft. Edema 1+ bilaterally noted Labs reviewed Nonspecific. Chest x-ray minimal improvement in the pneumonia noted. We will continue to monitor. Heart rate controlled with metoprolol, digoxin. Patient may need intravenous IV line. We will closely monitor. DVT GI prophylaxis and will follow the patient Objective - Vital Signs/Intake and Output Vital Signs (last 24 hours): Temp Pulse Resp BP Pulse Ox 96.7 F L 113 H 33 H 96/66 L 94 L 04/07/18 17:00 04/07/18 19:05 04/07/18 19:05 04/07/18 19:05 04/07/18 19:05 Intake and Output: 04/07/18 04/08/18 18:59 06:59 Intake Total 720 30 Output Total 200 Balance 520 30 - Medications Medications: Current Medications Acetaminophen (Tylenol 325mg Tab) 650 mg PO Q6 PRN PRN Reason: Fever >100.4 F Last Admin: 04/07/18 17:39 Dose: 650 mg Digoxin (Lanoxin) 0.25 mg IVP ONCE ONE Stop: 04/07/18 19:26 Docusate Sodium (Colace) 100 mg PO DAILY [facility] Last Admin: 04/07/18 10:43 Dose: Not Given Folic Acid (Folic Acid) 1 mg PO DAILY [facility] Last Admin: 04/07/18 17:39 Dose: 1 mg Furosemide (Lasix) 20 mg IVP Q12 [facility] Last Admin: 04/07/18 09:02 Dose: 20 mg Dextrose (Dextrose 5% In Water 1000 Ml) 1,000 mls @ 30 mls/hr IV .Q24H [facility] Last Admin: 04/06/18 11:00 Dose: 30 mls/hr Imipenem/Cilastatin Sodium 500 (mg/ Sodium Chloride) 100 mls @ 100 mls/hr IVPB Q12H [facility] PRN Reason: Protocol Ipratropium [place] (Atrovent) 0.5 mg IH RQ6 [facility] Last Admin: 04/07/18 14:05 Dose: 0.5 mg Lidocaine (Lidoderm) 1 ea TD DAILY [facility] Last Admin: 04/07/18 09:03 Dose: 1 ea Methylprednisolone (Solu-Medrol) 40 mg IVP Q8 [facility] Metoprolol Tartrate (Lopressor) 5 mg IVP Q8 [facility] Pantoprazole Sodium (Protonix Inj) 40 mg IVP DAILY [facility] Senna/Docusate Sodium (Senokot S 50 Mg-8.6 Mg) 1 tab PO HS [facility] Last Admin: 04/06/18 21:23 Dose: Not Given - Labs Labs: 04/07/18 06:08 04/07/18 06:09 PT 15.7 SECONDS (9.7-12.2) H D 04/06/18 06:15 INR 1.4 D 04/06/18 06:15 APTT 34 SECONDS (21-34) D 04/06/18 06:15
[2018-04-07] MEDS ORDERED: MethylPREDNISolone 40 mg Vial IVP SCH (19:30)
[2018-04-07] MEDS: MethylPREDNISolone 40 mg Vial IVP SCH (19:49)
[2018-04-07] MEDS: Docusate-Senna 50 mg-8.6 mg Tab PO SCH (21:17)
[2018-04-07] MEDS: Metoprolol 1 mg/ml Inj IVP SCH (22:09)
--- NOTE | 2018-04-07 22:55 | CP.PCM.PN ---
Subjective - Date & Time of Evaluation Date of Evaluation: 04/07/18 Time of Evaluation: 15:30 - Subjective Subjective: Patient seen and evaluated Still has dyspnea on BiPAP Objective - Vital Signs/Intake and Output Vital Signs (last 24 hours): Temp Pulse Resp BP Pulse Ox 96.7 F L 123 H 23 103/60 97 04/07/18 17:00 04/07/18 22:06 04/07/18 20:04 04/07/18 21:15 04/07/18 20:04 Intake and Output: 04/07/18 04/08/18 18:59 06:59 Intake Total 720 30 Output Total 200 Balance 520 30 - Medications Medications: Current Medications Acetaminophen (Tylenol 325mg Tab) 650 mg PO Q6 PRN PRN Reason: Fever >100.4 F Last Admin: 04/07/18 17:39 Dose: 650 mg Apixaban (Eliquis) 2.5 mg PO Q12 [facility] Last Admin: 04/07/18 21:15 Dose: 2.5 mg Docusate Sodium (Colace) 100 mg PO DAILY [facility] Last Admin: 04/07/18 10:43 Dose: Not Given Folic Acid (Folic Acid) 1 mg PO DAILY [facility] Last Admin: 04/07/18 17:39 Dose: 1 mg Furosemide (Lasix) 20 mg IVP Q12 [facility] Last Admin: 04/07/18 21:15 Dose: 20 mg Dextrose (Dextrose 5% In Water 1000 Ml) 1,000 mls @ 30 mls/hr IV .Q24H [facility] Last Admin: 04/07/18 19:43 Dose: 30 mls/hr Imipenem/Cilastatin Sodium 500 (mg/ Sodium Chloride) 100 mls @ 100 mls/hr IVPB Q12H [facility] PRN Reason: Protocol Last Admin: 04/07/18 22:10 Dose: 100 mls/hr Ipratropium [place] (Atrovent) 0.5 mg IH RQ6 [facility] Last Admin: 04/07/18 20:02 Dose: 0.5 mg Lidocaine (Lidoderm) 1 ea TD DAILY [facility] Last Admin: 04/07/18 09:03 Dose: 1 ea Methylprednisolone (Solu-Medrol) 40 mg IVP Q8H [facility] Last Admin: 04/07/18 19:49 Dose: 40 mg Metoprolol Tartrate (Lopressor) 5 mg IVP Q8 [facility] Last Admin: 04/07/18 22:09 Dose: 5 mg Pantoprazole Sodium (Protonix Inj) 40 mg IVP DAILY [facility] Senna/Docusate Sodium (Senokot S 50 Mg-8.6 Mg) 1 tab PO HS [facility] Last Admin: 04/07/18 21:17 Dose: Not Given - Labs Labs: 04/07/18 06:08 04/07/18 06:09 PT 15.7 SECONDS (9.7-12.2) H D 04/06/18 06:15 INR 1.4 D 04/06/18 06:15 APTT 34 SECONDS (21-34) D 04/06/18 06:15
[2018-04-08] MEDS: Ipratropium 0.02% Inhal Soln (0.5 mg/2.5 ml) UD IH SCH ×4 (01:09→20:00)
[2018-04-08] MEDS: MethylPREDNISolone 40 mg Vial IVP SCH ×3 (04:25→20:02)
[2018-04-08] MEDS: Metoprolol 1 mg/ml Inj IVP SCH ×3 (06:15→22:37)
[2018-04-08 06:25] LABS: BASO % 0.3 % (0.0-2.0); EOS % 0.1 % (0.0-4.0); HEMOGLOBIN 10.4 g/dL (11.0-16.0); LYMPH # 0.3 K/uL (1.0-4.3); LYMPH % 8.6 % (20.0-40.0); MEAN CELL VOLUME 82.8 fL (81.0-99.0); MEAN CORPUSCULAR HEMOGLOBIN 26.7 pg (27.0-31.0); MEAN CORPUSCULAR HGB CONC 32.2 g/dL (33.0-37.0); MEAN PLATELET VOLUME 9.1 fL (7.2-11.7); MONO # 0.2 K/uL (0.0-0.8); MONO % 7.9 % (0.0-10.0); NEUT # 2.6 K/uL (1.8-7.0); NEUT % 83.1 % (50.0-75.0); NRBC % 0.1 % (0.0-2.0); PLATELET COUNT 87 K/uL (130-400); RED CELL DISTRIBUTION WIDTH 18.2 % (11.5-14.5); WHITE BLOOD COUNT 3.1 K/uL (4.8-10.8)
[2018-04-08 06:40] LABS: ALB/GLOB RATIO 0.9 (1.0-2.1); ALBUMIN 2.6 g/dL (3.5-5.0); CALCIUM 8.8 mg/dl (8.6-10.4)
[2018-04-08 08:23] LABS: LYMPHOCYTE 10 % (20-40); MONOCYTE 7 % (0-10); NEUTROPHIL 83 % (50-75); TOTAL CELLS COUNTED 100
[2018-04-08 08:24] LABS: ANISOCYTOSIS SLIGHT; HYPOCHROMIC SLIGHT; PLATELET ESTIMATE DECREASED (NORMAL); POIKILOCYTOSIS SLIGHT
[2018-04-08] MEDS: Lidocaine 5% Patch TD SCH (09:18)
--- NOTE | 2018-04-08 09:46 | RAD ---
Date of service: 04/08/2018 HISTORY: respiratory distress COMPARISON: April 07, 2018. FINDINGS: LUNGS: Improved aeration of the lungs/ decrease in pulmonary vascular congestion. Persistent right upper lobe infiltrate with air bronchograms unchanged likely superimposed pneumonia. PLEURA: No significant pleural effusion identified, no pneumothorax apparent. CARDIOVASCULAR: Cardiomegaly, improving CHF.Position/ configuration of pacemaker device: Satisfactory. OSSEOUS STRUCTURES: No significant abnormalities. VISUALIZED UPPER ABDOMEN: Normal. OTHER FINDINGS: None. IMPRESSION: Improving congestive heart failure. Stable right upper lobe infiltrate.
[2018-04-08] MEDS ORDERED: Pantoprazole 40 mg EC Tab PO SCH (10:00)
--- NOTE | 2018-04-08 10:10 | CP.PCM.PN ---
<Laura Valle - Last Filed: 04/08/18 13:45> Subjective - Date & Time of Evaluation Date of Evaluation: 04/08/18 Time of Evaluation: 11:00 - Subjective Subjective: PGY2- Progress Note for Dr. Gaitan Patient seen and examined at bedside and in no acute distress. Patient says her body hurts. She says her breathing is slightly better, but she does not feel well. Patient is on nasal cannula and off BiPAP. Patient denies any chest pain, abdominal pain, nausea, vomiting, constipation, or diarrhea. Objective - Vital Signs/Intake and Output Vital Signs (last 24 hours): Temp Pulse Resp BP Pulse Ox 97.5 F L 109 H 24 115/79 100 04/08/18 08:00 04/08/18 08:05 04/08/18 08:05 04/08/18 09:18 04/08/18 08:05 Intake and Output: 04/08/18 04/08/18 06:59 18:59 Intake Total 530 90 Output Total 1000 Balance -470 90 - Medications Medications: Current Medications Acetaminophen (Tylenol 325mg Tab) 650 mg PO Q6 PRN PRN Reason: Fever >100.4 F Last Admin: 04/08/18 00:20 Dose: 650 mg Apixaban (Eliquis) 2.5 mg PO Q12 [facility] Last Admin: 04/08/18 09:17 Dose: 2.5 mg Docusate Sodium (Colace) 100 mg PO DAILY [facility] Last Admin: 04/08/18 09:17 Dose: 100 mg Folic Acid (Folic Acid) 1 mg PO DAILY [facility] Last Admin: 04/08/18 09:17 Dose: 1 mg Furosemide (Lasix) 20 mg IVP Q12 [facility] Last Admin: 04/08/18 09:18 Dose: 20 mg Dextrose (Dextrose 5% In Water 1000 Ml) 1,000 mls @ 30 mls/hr IV .Q24H [facility] Last Admin: 04/07/18 19:43 Dose: 30 mls/hr Imipenem/Cilastatin Sodium 500 (mg/ Sodium Chloride) 100 mls @ 100 mls/hr IVPB Q12H [facility] PRN Reason: Protocol Last Admin: 04/07/18 22:10 Dose: 100 mls/hr Ipratropium [place] (Atrovent) 0.5 mg IH RQ6 [facility] Last Admin: 04/08/18 07:24 Dose: 0.5 mg Lidocaine (Lidoderm) 1 ea TD DAILY [facility] Last Admin: 04/08/18 09:18 Dose: 1 ea Methylprednisolone (Solu-Medrol) 40 mg IVP Q8H [facility] Last Admin: 04/08/18 04:25 Dose: 40 mg Metoprolol Tartrate (Lopressor) 5 mg IVP Q8 [facility] Last Admin: 04/08/18 06:15 Dose: 5 mg Pantoprazole Sodium (Protonix Inj) 40 mg IVP DAILY [facility] Last Admin: 04/08/18 09:17 Dose: 40 mg Senna/Docusate Sodium (Senokot S 50 Mg-8.6 Mg) 1 tab PO HS [facility] Last Admin: 04/07/18 21:17 Dose: Not Given - Labs Labs: 04/08/18 06:21 04/08/18 06:21 PT 15.7 SECONDS (9.7-12.2) H D 04/06/18 06:15 INR 1.4 D 04/06/18 06:15 APTT 34 SECONDS (21-34) D 04/06/18 06:15 - Constitutional Appears: Non-toxic, No Acute Distress - Head Exam Head Exam: ATRAUMATIC, NORMAL INSPECTION, NORMOCEPHALIC - Eye Exam Eye Exam: EOMI, Normal appearance - ENT Exam ENT Exam: Mucous Membranes Dry - Respiratory Exam Respiratory Exam: Rhonchi, Wheezes. absent: NORMAL BREATHING PATTERN - Cardiovascular Exam Cardiovascular Exam: Tachycardia, Irregular Rhythm, +S1, +S2, Murmur - GI/Abdominal Exam GI & Abdominal Exam: Soft, Normal Bowel Sounds. absent: Tenderness - Extremities Exam Extremities Exam: Full ROM, Normal Inspection. absent: Pedal Edema - Neurological Exam Neurological Exam: Alert, Awake, Oriented x3 - Skin Skin Exam: Intact, Normal Color, Warm Assessment and Plan - Assessment and Plan (Free Text) Assessment: CHF exacerbation Echo (04/04/18): EF :44% mild to moderate left ventricular hypertropy. Systolic function is mildly impaired. Septal hypokinesis. Moderate valvular aortic stenosis. Mitral regurg is moderate. Moderate tricuspid regurg. Mild pulmonary hypertension. -BNP 23,000 -lasix 20mg BID -solu-medrol 40mg ivp q8h -BiPAP, keep spO2>92% alternating with nasal cannula A. Fib -Eliquis 2.5mg po q12h restarted on 04/07 -Metoprolol 5mg ivp q8h Discussed with Dr. Gaitan <Kenny Gaitan - Last Filed: 04/09/18 00:14> Objective - Vital Signs/Intake and Output Vital Signs (last 24 hours): Temp Pulse Resp BP Pulse Ox 98.4 F 106 H 22 99/58 L 100 04/08/18 21:00 04/08/18 16:42 04/08/18 20:02 04/08/18 21:26 04/08/18 08:05 Intake and Output: 04/08/18 04/09/18 18:59 06:59 Intake Total 580 370 Output Total 400 200 Balance 180 170 - Medications Medications: Current Medications Acetaminophen (Tylenol 325mg Tab) 650 mg PO Q6 PRN PRN Reason: Fever >100.4 F Last Admin: 04/08/18 18:22 Dose: 650 mg Apixaban (Eliquis) 2.5 mg PO Q12 [facility] Last Admin: 04/08/18 21:26 Dose: 2.5 mg Diltiazem HCl (Cardizem) 30 mg PO QID [facility] Last Admin: 04/08/18 22:40 Dose: 30 mg Docusate Sodium (Colace) 100 mg PO DAILY [facility] Last Admin: 04/08/18 09:17 Dose: 100 mg Folic Acid (Folic Acid) 1 mg PO DAILY [facility] Last Admin: 04/08/18 09:17 Dose: 1 mg Furosemide (Lasix) 40 mg PO DAILY [facility] Imipenem/Cilastatin Sodium 500 (mg/ Sodium Chloride) 100 mls @ 100 mls/hr IVPB Q12H [facility] PRN Reason: Protocol Last Admin: 04/08/18 22:37 Dose: 100 mls/hr Ipratropium [place] (Atrovent) 0.5 mg IH RQ6 [facility] Last Admin: 04/08/18 20:00 Dose: 0.5 mg Lidocaine (Lidoderm) 1 ea TD DAILY [facility] Last Admin: 04/08/18 09:18 Dose: 1 ea Methylprednisolone (Solu-Medrol) 40 mg IVP Q8H [facility] Last Admin: 04/08/18 20:02 Dose: 40 mg Metoprolol Tartrate (Lopressor) 5 mg IVP Q8 [facility] Last Admin: 04/08/18 22:37 Dose: 5 mg Pantoprazole Sodium (Protonix Inj) 40 mg IVP DAILY [facility] Last Admin: 04/08/18 09:17 Dose: 40 mg Senna/Docusate Sodium (Senokot S 50 Mg-8.6 Mg) 1 tab PO HS [facility] Last Admin: 04/08/18 21:26 Dose: 1 tab - Labs Labs: 04/08/18 06:21 04/08/18 06:21 PT 15.7 SECONDS (9.7-12.2) H D 04/06/18 06:15 INR 1.4 D 04/06/18 06:15 APTT 34 SECONDS (21-34) D 04/06/18 06:15 Assessment and Plan - Assessment and Plan (Free Text) Assessment: Patient seen and evaluated personally by me Plan of care d/w the resident and as documented
--- NOTE | 2018-04-08 11:28 | CP.CCUPN ---
<Mary Mcknight - Last Filed: 04/08/18 10:54> CCU Subjective - Physician Review Subjective (Free Text): 04/06/18 11:40 Pt seen and examined at bedside. Pt is on BiPAP saturating at 95%. Patient is able to have one sentence conversation off BiPAP. Patient denies having any CP , abdominal pain, N/V/D/C, F/C. 04/08/18 10:54 Pt seen and examined at bedside. No acute events overnight. Improved respiratory status, currently on high flow. Patient states SOB has improved. Denies having any CP, abd pain, N/V/D/C, F/C. 12 point ROS negative except for above mentioned. CCU Objective - Vital Signs / Intake & Output Vital Signs (Last 4 hours): Vital Signs Temp Pulse Resp BP Pulse Ox 04/08/18 09:18 115/79 04/08/18 08:05 109 H 24 104/75 100 04/08/18 08:00 97.5 F L 101 H 23 99 04/08/18 07:04 116 H 19 109/68 99 04/08/18 07:00 102 H 18 99 Intake and Output (Last 8hrs): Intake & Output 04/07/18 04/08/18 04/08/18 22:59 06:59 14:59 Intake Total 290 360 120 Output Total 1000 Balance 290 -640 120 Weight 150 lb 12.8 oz Intake: Intake, IV Amount 240 310 120 Right Wrist 240 310 120 Oral 50 50 Output: Urine 1000 Urine, Voided 1000 - Physical Exam Head: Positive for: Atraumatic, Normocephalic Extroacular Muscles: Positive for: EOMI Conjunctiva: Positive for: Normal Mouth: Positive for: Dry Respiratory/Chest: Positive for: Wheezes, Decreased Breath Sounds, Rhonchi, Tachypneic. Negative for: Respiratory Distress, Accessory Muscle Use Cardiovascular: Positive for: Normal S1, S2, Tachycardic. Negative for: Murmurs Abdomen: Positive for: Normal Bowel Sounds. Negative for: Tenderness, Distention, Peritoneal Signs Upper Extremity: Negative for: Cyanosis Lower Extremity: Positive for: Edema Neurological: Positive for: GCS=15, Speech Normal Skin: Positive for: Warm, Dry, Normal Color. Negative for: Rashes Psychiatric: Positive for: Alert, Oriented x 3, Normal Insight, Normal Concentration - Medications Active Medications: Active Medications Generic Name Dose Route Start Last Admin Trade Name Freq PRN Reason Stop Dose Admin Acetaminophen 650 mg 04/03/18 23:00 04/08/18 00:20 Tylenol 325mg Tab PO 650 mg Q6 PRN Administration Fever >100.4 F Apixaban 2.5 mg 04/07/18 22:00 04/08/18 09:17 Eliquis PO 2.5 mg Q12 KIMBERLEE Administration Docusate Sodium 100 mg 04/05/18 10:15 04/08/18 09:17 Colace PO 100 mg DAILY KIMBERLEE Administration Folic Acid 1 mg 04/07/18 16:45 04/08/18 09:17 Folic Acid PO 1 mg DAILY K[facility]BERLEE Administration Furosemide 20 mg 04/07/18 10:00 04/08/18 09:18 Lasix IVP 20 mg Q12 KIMBERLEE Administration Dextrose 1,000 mls @ 30 mls/hr 04/06/18 10:45 04/07/18 19:43 Dextrose 5% In Water 1000 Ml IV 30 mls/hr .Q24H KIMBERLEE Administration Imipenem/Cilastatin Sodium 500 100 mls @ 100 mls/hr 04/07/18 23:00 04/08/18 10:33 mg/ Sodium Chloride IVPB 100 mls/hr Q12H K[facility]BERLEE Administration Protocol Ipratropium [place] 0.5 mg 04/04/18 14:00 04/08/18 07:24 Atrovent IH 0.5 mg RQ6 K[facility]BERLEE Administration Lidocaine 1 ea 04/05/18 10:15 04/08/18 09:18 Lidoderm TD 1 ea DAILY [facility]E Administration Methylprednisolone 40 mg 04/07/18 20:00 04/08/18 04:25 Solu-Medrol IVP 40 mg Q8H [facility]E Administration Metoprolol Tartrate 5 mg 04/07/18 22:00 04/08/18 06:15 Lopressor IVP 5 mg Q8 [facility]E Administration Pantoprazole Sodium 40 mg 04/08/18 10:00 04/08/18 09:17 Protonix Inj IVP 40 mg DAILY K[facility]BERLEE Administration Senna/Docusate Sodium 1 tab 04/05/18 22:00 04/07/18 21:17 Senokot S 50 Mg-8.6 Mg PO Not Given HS KIMBERLEE - Patient Studies Lab Studies: Microbiology Studies 07/07/18 06:18 Blood Culture - Preliminary Blood-Venous NO GROWTH AFTER 4 DAYS 04/04/18 06:17 Blood Culture - Preliminary Blood-Venous NO GROWTH AFTER 4 DAYS Lab Studies 04/08/18 04/08/18 Range/Units 06:21 06:21 WBC 3.1 L (4.8-10.8) K/uL RBC 3.90 (3.80-5.20) Mil/uL Hgb 10.4 L (11.0-16.0) g/dL Hct 32.3 L (34.0-47.0) % MCV 82.8 (81.0-99.0) fL MCH 26.7 L (27.0-31.0) pg MCHC 32.2 L (33.0-37.0) g/dL RDW 18.2 H (11.5-14.5) % Plt Count 87 L (130-400) K/uL MPV 9.1 (7.2-11.7) fL Neut % (Auto) 83.1 H (50.0-75.0) % Lymph % (Auto) 8.6 L (20.0-40.0) % [place] % (Auto) 7.9 (0.0-10.0) % Eos % (Auto) 0.1 (0.0-4.0) % Baso % (Auto) 0.3 (0.0-2.0) % Neut # (Auto) 2.6 (1.8-7.0) K/uL Lymph # (Auto) 0.3 L (1.0-4.3) K/uL [place] # (Auto) 0.2 (0.0-0.8) K/uL Eos # (Auto) 0.0 (0.0-0.7) K/uL Baso # (Auto) 0.0 (0.0-0.2) K/uL Neutrophils % (Manual) 83 H (50-75) % Lymphocytes % (Manual) 10 L (20-40) % Monocytes % (Manual) 7 (0-10) % Platelet Estimate Decreased L (NORMAL) Hypochromasia (manual) Slight Poikilocytosis (manual Slight Anisocytosis (manual) Slight LAP Score Cancelled Sodium 138 (132-148) mmol/L Potassium 4.2 (3.6-5.2) mmol/L Chloride 101 (98-107) mmol/L Carbon Dioxide 27 (22-30) mmol/L Anion Gap 15 (10-20) BUN 42 H (7-17) mg/dL Creatinine 1.4 H (0.7-1.2) mg/dL Est GFR ( Amer) 43 Est GFR (Non-Af Amer) 36 Random Glucose 167 H (65-105) mg/dL Calcium 8.8 (8.6-10.4) mg/dl Phosphorus 6.0 H (2.5-4.5) mg/dL Magnesium 2.0 (1.6-2.3) mg/dL Total Bilirubin 1.7 H (0.2-1.3) mg/dL AST 36 D (14-36) U/L ALT 37 (9-52) U/L Alkaline Phosphatase 173 H (38-126) U/L Total Protein 5.5 L (6.3-8.3) g/dL Albumin 2.6 L (3.5-5.0) g/dL Globulin 2.9 (2.2-3.9) gm/dL Albumin/Globulin Ratio 0.9 L (1.0-2.1) Laboratory Results - last 24 hr 04/08/18 04/08/18 06:21 06:21 WBC 3.1 L RBC 3.90 Hgb 10.4 L Hct 32.3 L MCV 82.8 MCH 26.7 L MCHC 32.2 L RDW 18.2 H Plt Count 87 L MPV 9.1 Neut % (Auto) 83.1 H Lymph % (Auto) 8.6 L [place] % (Auto) 7.9 Eos % (Auto) 0.1 Baso % (Auto) 0.3 Neut # (Auto) 2.6 Lymph # (Auto) 0.3 L [place] # (Auto) 0.2 Eos # (Auto) 0.0 Baso # (Auto) 0.0 Neutrophils % (Manual) 83 H Lymphocytes % (Manual) 10 L Monocytes % (Manual) 7 Platelet Estimate Decreased L Hypochromasia (manual) Slight Poikilocytosis (manual Slight Anisocytosis (manual) Slight LAP Score Cancelled Sodium 138 Potassium 4.2 Chloride 101 Carbon Dioxide 27 Anion Gap 15 BUN 42 H Creatinine 1.4 H Est GFR ( Amer) 43 Est GFR (Non-Af Amer) 36 Random Glucose 167 H Calcium 8.8 Phosphorus 6.0 H Magnesium 2.0 Total Bilirubin 1.7 H AST 36 D ALT 37 Alkaline Phosphatase 173 H Total Protein 5.5 L Albumin 2.6 L Globulin 2.9 Albumin/Globulin Ratio 0.9 L Review of Systems - EENT Eyes: absent: Blurred Vision, Change in Vision Nose/Mouth/Throat: absent: Nasal Congestion, Nasal Discharge - Cardiovascular Cardiovascular: absent: Chest Pain, Diaphoresis, Edema, Irregular Heart Rhythm, Leg Edema, Pedal Edema - Respiratory Respiratory: Cough, Dyspnea, Wheezing. absent: Dyspnea on Exertion, Stridor - Gastrointestinal Gastrointestinal: absent: Abdominal Pain, Constipation, Nausea, Vomiting - Genitourinary Genitourinary: absent: Dysuria - Musculoskeletal Musculoskeletal: absent: Back Pain, Muscle Cramps - Integumentary Integumentary: absent: Lesions, Rash - Neurological Neurological: absent: Headaches, Syncope, Tingling - Psychiatric Psychiatric: absent: Anxiety, Depression Critical Care Progress Note - Prophylaxis GI Prophylaxis GI: PPI - Prophylaxis DVT Prophylaxis DVT: SCDs - Nutrition Nutrition: Nutrition Category Date Time Status NPO Diet [DIET] Diets 04/06/18 Breakfast Active Assessment/Plan - Assessment and Plan (Free Text) Assessment: 87 yo F admitted with hypoxemic respiratory failure 2/2 CHF exacerbation vs. PNA. 1. CHF exacerbation- EF 04/04~44% -pBNP 23,000 -lasix 20mg BID IV -BiPAP, keep spO2>92% prn. Currently on High flow with improving tachypnea -cardio consult Dr. Gaitan 2. A. Fib -hold anticoag due to hx of GI bleed - Verapamil d/allan - metoprolol 50mg q12 - Digoxin prn 3. Hypoxemic respiratory failure - Improving -ipratropium q6 - Solumedrol 40 IVP q 8 4. Right sided apical PNA -immipenem 500mg q8 5. PUD - endoscopy done on 03/19/18 showed non-bleeding esophageal ulcer, esophagitis, and non-bleeding duodenal ulcer with no stigmata of bleeding - Continue protonix 40 IVP qd 6. Constipation - Senokot, colace 7. UTI - urine culture positive for coagulase negative staph - Continue Abx 8. Pancytopenia - Pt transfused PRBC on admission - Hgb stable - Continue iron supplements - negative blood cultures - Bone marrow biopsy done on 03/24/18 showed hypercellular marrow with maturing trilineage hematopoeisis and a decreased M:E ratio. Stoarge iron present. No evidence of overt myeodysplasia, plasma cell myeloma or lymphoma. Report in chart 9. Sepsis likely 2/2 UTI vs. PNA - Afebrile overnight. - Urine culture positive - immipenem 500mg q8 Ppx - SCDs - Protonix 40mg - Oral AC contraindicated due to recent GI bleed case discussed w/ Dr. Crum - Date & Time Date: 04/08/18 Time: 11:37 <Luigi Crum - Last Filed: 04/08/18 18:25> CCU Objective - Vital Signs / Intake & Output Vital Signs (Last 4 hours): Vital Signs Temp Pulse Resp 04/08/18 17:24 23 04/08/18 16:42 106 H 04/08/18 16:00 97.4 F L Intake and Output (Last 8hrs): Intake & Output 04/08/18 04/08/18 04/08/18 06:59 14:59 22:59 Intake Total 360 310 90 Output Total 1000 Balance -640 310 90 Weight 150 lb 12.8 oz Intake: Intake, IV Amount 310 310 90 Right Wrist 310 310 90 Oral 50 Output: Urine 1000 Urine, Voided 1000 - Medications Active Medications: Active Medications Generic Name Dose Route Start Last Admin Trade Name Freq PRN Reason Stop Dose Admin Acetaminophen 650 mg 04/03/18 23:00 04/08/18 18:22 Tylenol 325mg Tab PO 650 mg Q6 PRN Administration Fever >100.4 F Apixaban 2.5 mg 04/07/18 22:00 04/08/18 09:17 Eliquis PO 2.5 mg Q12 [facility]BERLEE Administration Docusate Sodium 100 mg 04/05/18 10:15 04/08/18 09:17 Colace PO 100 mg DAILY K[facility]BERLEE Administration Folic Acid 1 mg 04/07/18 16:45 04/08/18 09:17 Folic Acid PO 1 mg DAILY [facility]E Administration Furosemide 20 mg 04/07/18 10:00 04/08/18 09:18 Lasix IVP 20 mg Q12 [facility]BERLEE Administration Dextrose 1,000 mls @ 30 mls/hr 04/06/18 10:45 04/08/18 11:35 Dextrose 5% In Water 1000 Ml IV Not Given .Q24H [facility]BER[facility]E Imipenem/Cilastatin Sodium 500 100 mls @ 100 mls/hr 04/07/18 23:00 04/08/18 10:33 mg/ Sodium Chloride IVPB 100 mls/hr Q12H [facility]IMBERLEE Administration Protocol Ipratropium [place] 0.5 mg 04/04/18 14:00 04/08/18 13:11 Atrovent IH 0.5 mg RQ6 [facility]BER[facility]E Administration Lidocaine 1 ea 04/05/18 10:15 04/08/18 09:18 Lidoderm TD 1 ea DAILY K[facility]BER[facility]E Administration Methylprednisolone 40 mg 04/07/18 20:00 04/08/18 11:39 Solu-Medrol IVP 40 mg Q8H [facility]E Administration Metoprolol Tartrate 5 mg 04/07/18 22:00 04/08/18 14:06 Lopressor IVP 5 mg Q8 [facility]BER[facility]E Administration Pantoprazole Sodium 40 mg 04/08/18 10:00 04/08/18 09:17 Protonix Inj IVP 40 mg DAILY [facility]LEE Administration Senna/Docusate Sodium 1 tab 04/05/18 22:00 04/07/18 21:17 Senokot S 50 Mg-8.6 Mg PO Not Given HS K[facility]BERLEE - Patient Studies Lab Studies: Microbiology Studies 04/04/18 06:18 Blood Culture - Preliminary Blood-Venous NO GROWTH AFTER 4 DAYS 04/04/18 06:17 Blood Culture - Preliminary Blood-Venous NO GROWTH AFTER 4 DAYS Lab Studies 04/08/18 04/08/18 04/08/18 Range/Units 08:01 06:21 06:21 WBC 3.1 L (4.8-10.8) K/uL RBC 3.90 (3.80-5.20) Mil/uL Hgb 10.4 L (11.0-16.0) g/dL Hct 32.3 L (34.0-47.0) % MCV 82.8 (81.0-99.0) fL MCH 26.7 L (27.0-31.0) pg MCHC 32.2 L (33.0-37.0) g/dL RDW 18.2 H (11.5-14.5) % Plt Count 87 L (130-400) K/uL MPV 9.1 (7.2-11.7) fL Neut % (Auto) 83.1 H (50.0-75.0) % Lymph % (Auto) 8.6 L (20.0-40.0) % [place] % (Auto) 7.9 (0.0-10.0) % Eos % (Auto) 0.1 (0.0-4.0) % Baso % (Auto) 0.3 (0.0-2.0) % Neut # (Auto) 2.6 (1.8-7.0) K/uL Lymph # (Auto) 0.3 L (1.0-4.3) K/uL [place] # (Auto) 0.2 (0.0-0.8) K/uL Eos # (Auto) 0.0 (0.0-0.7) K/uL Baso # (Auto) 0.0 (0.0-0.2) K/uL Neutrophils % (Manual) 83 H (50-75) % Lymphocytes % (Manual) 10 L (20-40) % Monocytes % (Manual) 7 (0-10) % Platelet Estimate Decreased L (NORMAL) Hypochromasia (manual) Slight Poikilocytosis (manual Slight Anisocytosis (manual) Slight LAP Score 152 Cancelled Sodium 138 (132-148) mmol/L Potassium 4.2 (3.6-5.2) mmol/L Chloride 101 (98-107) mmol/L Carbon Dioxide 27 (22-30) mmol/L Anion Gap 15 (10-20) BUN 42 H (7-17) mg/dL Creatinine 1.4 H (0.7-1.2) mg/dL Est GFR ( Amer) 43 Est GFR (Non-Af Amer) 36 Random Glucose 167 H (65-105) mg/dL Calcium 8.8 (8.6-10.4) mg/dl Phosphorus 6.0 H (2.5-4.5) mg/dL Magnesium 2.0 (1.6-2.3) mg/dL Total Bilirubin 1.7 H (0.2-1.3) mg/dL AST 36 D (14-36) U/L ALT 37 (9-52) U/L Alkaline Phosphatase 173 H (38-126) U/L Total Protein 5.5 L (6.3-8.3) g/dL Albumin 2.6 L (3.5-5.0) g/dL Globulin 2.9 (2.2-3.9) gm/dL Albumin/Globulin Ratio 0.9 L (1.0-2.1) Laboratory Results - last 24 hr 04/08/18 04/08/18 04/08/18 06:21 06:21 08:01 WBC 3.1 L RBC 3.90 Hgb 10.4 L Hct 32.3 L MCV 82.8 MCH 26.7 L MCHC 32.2 L RDW 18.2 H Plt Count 87 L MPV 9.1 Neut % (Auto) 83.1 H Lymph % (Auto) 8.6 L [place] % (Auto) 7.9 Eos % (Auto) 0.1 Baso % (Auto) 0.3 Neut # (Auto) 2.6 Lymph # (Auto) 0.3 L [place] # (Auto) 0.2 Eos # (Auto) 0.0 Baso # (Auto) 0.0 Neutrophils % (Manual) 83 H Lymphocytes % (Manual) 10 L Monocytes % (Manual) 7 Platelet Estimate Decreased L Hypochromasia (manual) Slight Poikilocytosis (manual Slight Anisocytosis (manual) Slight LAP Score Cancelled 152 Sodium 138 Potassium 4.2 Chloride 101 Carbon Dioxide 27 Anion Gap 15 BUN 42 H Creatinine 1.4 H Est GFR ( Amer) 43 Est GFR (Non-Af Amer) 36 Random Glucose 167 H Calcium 8.8 Phosphorus 6.0 H Magnesium 2.0 Total Bilirubin 1.7 H AST 36 D ALT 37 Alkaline Phosphatase 173 H Total Protein 5.5 L Albumin 2.6 L Globulin 2.9 Albumin/Globulin Ratio 0.9 L EKG/Cardiology Studies: Cardiology / EKG Studies 04/08/18 11:55 EKG [ELECTROCARDIOGRAM] Stat Comment: Mode Of Transportation: Reason For Exam: chest discomfort, tachy Critical Care Progress Note - Nutrition Nutrition: Nutrition Category Date Time Status Heart Healthy Diet [DIET] Diets 04/08/18 Dinner Active Attending/Attestation - Attestation I have personally seen and examined this patient.: Yes I have fully participated in the care of the patient.: Yes I have reviewed all pertinent clinical information: Yes Notes (Text): 04/08/18 18:23 patient seen and examined in the intensive care unit. Clinically improving Continue antibiotics Patient is off BiPAP Lopressor and digoxin as needed Follow-up chest x-ray and ABG
[2018-04-08] MEDS ORDERED: Digoxin 500 mcg/2ml (0.5 mg/2ml) Inj IVP ONE (12:17)
[2018-04-08] MEDS: Docusate-Senna 50 mg-8.6 mg Tab PO SCH (21:26)
--- NOTE | 2018-04-08 21:55 | CP.PCM.PN ---
Subjective - Date & Time of Evaluation Date of Evaluation: 04/08/18 Time of Evaluation: 21:53 - Subjective Subjective: Patient this evening feeling much better. She is off BiPAP. On nasal cannula. Less tachypnea noted. Cough minimally noted. No abdominal pain. Leg swelling is less. No fever noted. On examination: Vital signs noted. Still tachycardia noted. Chest bilateral good air entry Regular heart sound Nontender abdomen Extremity is 1+ edema noted Labs reviewed Nonspecific. Mild elevation of the WBC secondary to steroid Labs reviewed Medications reviewed Assessment and recommendation: 87-year-old female with a history of atrial fibrillation, aortic valve replacement 2. History of congestive heart failure. Admitted now with acute respiratory failure, associated with the pneumonia. Severe anemia, status post transfusion. On antibiotic. Also currently receiving intravenous corticosteroid. Continue the current treatment. Reduce the Lasix. Add Cardizem Repeat labs tomorrow. Respiratory monitoring. Physical therapy. Will follow the patient Objective - Vital Signs/Intake and Output Vital Signs (last 24 hours): Temp Pulse Resp BP Pulse Ox 97.4 F L 106 H 22 99/58 L 100 04/08/18 16:00 04/08/18 16:42 04/08/18 20:02 04/08/18 21:26 04/08/18 08:05 Intake and Output: 04/08/18 04/09/18 18:59 06:59 Intake Total 580 30 Output Total 400 Balance 180 30 - Medications Medications: Current Medications Acetaminophen (Tylenol 325mg Tab) 650 mg PO Q6 PRN PRN Reason: Fever >100.4 F Last Admin: 04/08/18 18:22 Dose: 650 mg Apixaban (Eliquis) 2.5 mg PO Q12 [facility] Last Admin: 04/08/18 21:26 Dose: 2.5 mg Docusate Sodium (Colace) 100 mg PO DAILY [facility] Last Admin: 04/08/18 09:17 Dose: 100 mg Folic Acid (Folic Acid) 1 mg PO DAILY [facility] Last Admin: 04/08/18 09:17 Dose: 1 mg Imipenem/Cilastatin Sodium 500 (mg/ Sodium Chloride) 100 mls @ 100 mls/hr IVPB Q12H [facility]E PRN Reason: Protocol Last Admin: 04/08/18 10:33 Dose: 100 mls/hr Ipratropium [place] (Atrovent) 0.5 mg IH RQ6 [facility] Last Admin: 04/08/18 20:00 Dose: 0.5 mg Lidocaine (Lidoderm) 1 ea TD DAILY [facility]E Last Admin: 04/08/18 09:18 Dose: 1 ea Methylprednisolone (Solu-Medrol) 40 mg IVP Q8H [facility]BER[facility]E Last Admin: 04/08/18 20:02 Dose: 40 mg Metoprolol Tartrate (Lopressor) 5 mg IVP Q8 [facility]E Last Admin: 04/08/18 14:06 Dose: 5 mg Pantoprazole Sodium (Protonix Inj) 40 mg IVP DAILY [facility]BER[facility]E Last Admin: 04/08/18 09:17 Dose: 40 mg Senna/Docusate Sodium (Senokot S 50 Mg-8.6 Mg) 1 tab PO HS [facility]BERLEE Last Admin: 04/08/18 21:26 Dose: 1 tab - Labs Labs: 04/08/18 06:21 04/08/18 06:21 PT 15.7 SECONDS (9.7-12.2) H D 04/06/18 06:15 INR 1.4 D 04/06/18 06:15 APTT 34 SECONDS (21-34) D 04/06/18 06:15
--- NOTE | 2018-04-08 22:28 | CP.PCM.PN ---
Subjective - Date & Time of Evaluation Date of Evaluation: 04/08/18 Time of Evaluation: 22:00 - Subjective Subjective: INFECTIOUS DISEASE PROGRESS NOTE ICU14-A LUCITA WETZEL MD, FACP 04/08/2018 CHART REVIEWED EXAMINE NOTED CASE DISCUSSED Patient this evening feeling much better. She is off BiPAP. On nasal cannula. Less tachypnea noted. Cough minimally noted. No abdominal pain. Leg swelling is less. No fever noted. On examination: Vital signs noted. Still tachycardia noted. Chest bilateral good air entry Regular heart sound Nontender abdomen Extremity is 1+ edema noted Labs reviewed Nonspecific. Mild elevation of the WBC secondary to steroid Labs reviewed Medications reviewed Assessment and recommendation: 87-year-old female with a history of atrial fibrillation, aortic valve replacement 2. History of congestive heart failure. Admitted now with acute respiratory failure, associated with the pneumonia. Severe anemia, status post transfusion. On antibiotic, ONLY ON PRIMAXIN Also currently receiving intravenous corticosteroid. Continue the current treatment. Reduce the Lasix. Add Cardizem Repeat labs tomorrow. Respiratory monitoring. Physical therapy. Will follow the patient Objective - Vital Signs/Intake and Output Vital Signs (last 24 hours): Temp Pulse Resp BP Pulse Ox 97.4 F L 106 H 22 99/58 L 100 04/08/18 16:00 04/08/18 16:42 04/08/18 20:02 04/08/18 21:26 04/08/18 08:05 Intake and Output: 04/08/18 04/09/18 18:59 06:59 Intake Total 580 30 Output Total 400 Balance 180 30 CHF PNEUMONIA PANCYTOPENIA ELDERLY FEMALE LUCITA WETZEL MD, FACP Objective - Vital Signs/Intake and Output Vital Signs (last 24 hours): Temp Pulse Resp BP Pulse Ox 97.4 F L 106 H 22 99/58 L 100 04/08/18 16:00 04/08/18 16:42 04/08/18 20:02 04/08/18 21:26 04/08/18 08:05 Intake and Output: 04/08/18 04/09/18 18:59 06:59 Intake Total 580 30 Output Total 400 Balance 180 30 - Medications Medications: Current Medications Acetaminophen (Tylenol 325mg Tab) 650 mg PO Q6 PRN PRN Reason: Fever >100.4 F Last Admin: 04/08/18 18:22 Dose: 650 mg Apixaban (Eliquis) 2.5 mg PO Q12 [facility] Last Admin: 04/08/18 21:26 Dose: 2.5 mg Diltiazem HCl (Cardizem) 30 mg PO QID [facility] Docusate Sodium (Colace) 100 mg PO DAILY [facility] Last Admin: 04/08/18 09:17 Dose: 100 mg Folic Acid (Folic Acid) 1 mg PO DAILY [facility] Last Admin: 04/08/18 09:17 Dose: 1 mg Furosemide (Lasix) 40 mg PO DAILY [facility] Imipenem/Cilastatin Sodium 500 (mg/ Sodium Chloride) 100 mls @ 100 mls/hr IVPB Q12H [facility] PRN Reason: Protocol Last Admin: 04/08/18 10:33 Dose: 100 mls/hr Ipratropium [place] (Atrovent) 0.5 mg IH RQ6 [facility] Last Admin: 04/08/18 20:00 Dose: 0.5 mg Lidocaine (Lidoderm) 1 ea TD DAILY [facility] Last Admin: 04/08/18 09:18 Dose: 1 ea Methylprednisolone (Solu-Medrol) 40 mg IVP Q8H [facility] Last Admin: 04/08/18 20:02 Dose: 40 mg Metoprolol Tartrate (Lopressor) 5 mg IVP Q8 [facility] Last Admin: 04/08/18 14:06 Dose: 5 mg Pantoprazole Sodium (Protonix Inj) 40 mg IVP DAILY [facility] Last Admin: 04/08/18 09:17 Dose: 40 mg Senna/Docusate Sodium (Senokot S 50 Mg-8.6 Mg) 1 tab PO HS [facility] Last Admin: 04/08/18 21:26 Dose: 1 tab - Labs Labs: 04/08/18 06:21 04/08/18 06:21 PT 15.7 SECONDS (9.7-12.2) H D 04/06/18 06:15 INR 1.4 D 04/06/18 06:15 APTT 34 SECONDS (21-34) D 04/06/18 06:15 Assessment and Plan (1) Pancytopenia Status: Acute (2) HAP (hospital-acquired pneumonia) Status: Suspected (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
[2018-04-09] MEDS: Ipratropium 0.02% Inhal Soln (0.5 mg/2.5 ml) UD IH SCH ×4 (01:37→20:18)
[2018-04-09] MEDS: MethylPREDNISolone 40 mg Vial IVP SCH ×3 (04:44→20:09)
[2018-04-09] MEDS: Metoprolol 1 mg/ml Inj IVP SCH ×3 (05:26→22:26)
[2018-04-09 06:18] LABS: BASO % 0.3 % (0.0-2.0); HEMOGLOBIN 11.1 g/dL (11.0-16.0); LYMPH # 0.4 K/uL (1.0-4.3); LYMPH % 6.3 % (20.0-40.0); MEAN CELL VOLUME 82.1 fL (81.0-99.0); MEAN CORPUSCULAR HGB CONC 32.9 g/dL (33.0-37.0); MEAN PLATELET VOLUME 9.6 fL (7.2-11.7); MONO # 0.5 K/uL (0.0-0.8); MONO % 8.3 % (0.0-10.0); NEUT # 5.4 K/uL (1.8-7.0); NEUT % 85.1 % (50.0-75.0); NRBC % 0.1 % (0.0-2.0); PLATELET COUNT 104 K/uL (130-400); RED CELL DISTRIBUTION WIDTH 18.4 % (11.5-14.5); WHITE BLOOD COUNT 6.3 K/uL (4.8-10.8)
[2018-04-09 06:33] LABS: INR 1.4; PROTHROMBIN TIME 15.2 SECONDS (9.7-12.2)
[2018-04-09 06:36] LABS: ARTERIAL BLOOD GAS HCO3 28.3 mmol/L (21-28); ARTERIAL BLOOD GAS HEMOGLOBIN 10.8 g/dL (11.7-17.4); ARTERIAL BLOOD GAS O2 SAT 98.4 % (95-98); ARTERIAL BLOOD GAS PCO2 39 mm/Hg (35-45); ARTERIAL BLOOD GAS PH 7.47 (7.35-7.45); ARTERIAL BLOOD GAS PO2 107 mm/Hg (80-100); ARTERIAL BLOOD GAS TCO2 29.6 mmol/L (22-28)
[2018-04-09 06:48] LABS: ALBUMIN 2.9 g/dL (3.5-5.0); CALCIUM 9.2 mg/dl (8.6-10.4)
[2018-04-09 08:33] LABS: LYMPHOCYTE 9 % (20-40); MONOCYTE 8 % (0-10); NEUTROPHIL 83 % (50-75); TOTAL CELLS COUNTED 100
[2018-04-09 08:34] LABS: ANISOCYTOSIS SLIGHT; HYPOCHROMIC SLIGHT; LARGE PLATELETS PRESENT; PLATELET ESTIMATE SLIGHTLY DECREASED (NORMAL); POIKILOCYTOSIS SLIGHT
[2018-04-09] MEDS: Lidocaine 5% Patch TD SCH (10:17)
--- NOTE | 2018-04-09 10:24 | RAD ---
Date of service: 04/09/2018 HISTORY: respiratory distress COMPARISON: 03/09/2008 0735 hours FINDINGS: LUNGS: The lateral right upper lobe area of greater airspace density there is improved aeration here. The entire right upper lobe area on this frontal view has persistent residual asymmetrically prominent interstitial pulmonary edema here. The faint air bronchograms right suprahilar location albeit present are slightly less conspicuous and/or there is surrounding peribronchial opacities have partially cleared. Background pulmonary venous congestion elsewhere similar PLEURA: Left pleural effusion similar CARDIOVASCULAR: Cardiomegaly -similar. Duallead pacemaker -similar. Transcatheter aortic valve replacement -similar. Extensive mitral annular calcification -similar OSSEOUS STRUCTURES: Bilateral shoulder arthrosis-similar VISUALIZED UPPER ABDOMEN: Normal. OTHER FINDINGS: None. IMPRESSION: Slight improvement of the relative density of the super in post focal infiltrate in the lateral right upper lobe compare to 04/08/2018. Persistent pulmonary venous congestion interstitial pulmonary edema which appears persistently more pronounced in the right upper lobe. Cardiomegaly and small left pleural effusion both similar. Other findings -as above.
--- NOTE | 2018-04-09 13:20 | CP.PCM.PN ---
<Laura Valle - Last Filed: 04/09/18 13:16> Subjective - Date & Time of Evaluation Date of Evaluation: 04/09/18 Time of Evaluation: 11:00 - Subjective Subjective: PGY2- Progress Note for Dr. Gaitan Patient seen and examined sitting up in a chair. Patient is on nasal cannula and off BiPAP. Patient says her breathing is improving. Patient denies any chest pain, abdominal pain, nausea, vomiting, constipation, or diarrhea. Objective - Vital Signs/Intake and Output Vital Signs (last 24 hours): Temp Pulse Resp BP Pulse Ox 97.9 F 77 17 116/66 97 04/09/18 04:00 04/09/18 07:04 04/09/18 07:04 04/09/18 10:17 04/09/18 07:04 Intake and Output: 04/09/18 04/09/18 06:59 18:59 Intake Total 470 Output Total 800 Balance -330 - Medications Medications: Current Medications Acetaminophen (Tylenol 325mg Tab) 650 mg PO Q6 PRN PRN Reason: Fever >100.4 F Last Admin: 04/09/18 00:16 Dose: 650 mg Apixaban (Eliquis) 2.5 mg PO Q12 [facility] Last Admin: 04/09/18 10:17 Dose: 2.5 mg Diltiazem HCl (Cardizem) 30 mg PO QID [facility] Last Admin: 04/09/18 10:16 Dose: 30 mg Docusate Sodium (Colace) 100 mg PO DAILY [facility] Last Admin: 04/09/18 10:16 Dose: 100 mg Folic Acid (Folic Acid) 1 mg PO DAILY [facility] Last Admin: 04/09/18 10:17 Dose: 1 mg Furosemide (Lasix) 40 mg PO DAILY [facility] Last Admin: 04/09/18 10:17 Dose: 40 mg Imipenem/Cilastatin Sodium 500 (mg/ Sodium Chloride) 100 mls @ 100 mls/hr IVPB Q12H [facility] PRN Reason: Protocol Last Admin: 04/09/18 10:18 Dose: 100 mls/hr Ipratropium [place] (Atrovent) 0.5 mg IH RQ6 [facility] Last Admin: 04/09/18 08:14 Dose: 0.5 mg Lidocaine (Lidoderm) 1 ea TD DAILY [facility] Last Admin: 04/09/18 10:17 Dose: 1 ea Methylprednisolone (Solu-Medrol) 40 mg IVP Q8H [facility] Last Admin: 04/09/18 04:44 Dose: 40 mg Metoprolol Tartrate (Lopressor) 5 mg IVP Q8 [facility] Last Admin: 04/09/18 05:26 Dose: 5 mg Pantoprazole Sodium (Protonix Inj) 40 mg IVP DAILY [facility] Last Admin: 04/09/18 10:16 Dose: 40 mg Senna/Docusate Sodium (Senokot S 50 Mg-8.6 Mg) 1 tab PO HS [facility] Last Admin: 04/08/18 21:26 Dose: 1 tab - Labs Labs: 04/09/18 06:11 04/09/18 06:11 PT 15.2 SECONDS (9.7-12.2) H 04/09/18 06:11 INR 1.4 04/09/18 06:11 APTT 34 SECONDS (21-34) 04/09/18 06:11 - Additional Findings Additional findings: - Constitutional Appears: Non-toxic, No Acute Distress - Head Exam Head Exam: ATRAUMATIC, NORMAL INSPECTION, NORMOCEPHALIC - Eye Exam Eye Exam: EOMI, Normal appearance - ENT Exam ENT Exam: Mucous Membranes Dry - Respiratory Exam Respiratory Exam: Rhonchi absent: NORMAL BREATHING PATTERN - Cardiovascular Exam Cardiovascular Exam: Tachycardia, Irregular Rhythm, +S1, +S2, Murmur - GI/Abdominal Exam GI & Abdominal Exam: Soft, Normal Bowel Sounds. absent: Tenderness - Extremities Exam Extremities Exam: Full ROM, Normal Inspection. absent: Pedal Edema - Neurological Exam Neurological Exam: Alert, Awake, Oriented x3 - Skin Skin Exam: Intact, Normal Color, Warm Assessment and Plan - Assessment and Plan (Free Text) Assessment: CHF exacerbation Echo (04/04/18): EF :44% mild to moderate left ventricular hypertropy. Systolic function is mildly impaired. Septal hypokinesis. Moderate valvular aortic stenosis. Mitral regurg is moderate. Moderate tricuspid regurg. Mild pulmonary hypertension. -BNP 23,000 -lasix 20mg BID -solu-medrol 40mg ivp q8h -BiPAP, keep spO2>92% alternating with nasal cannula A. Fib -Eliquis 2.5mg po q12h restarted on 04/07 -Metoprolol 5mg ivp q8h -Cardizem 30 mg po QID (started on 04/08) Discussed with Dr. Gaitan <Kenny Gaitan - Last Filed: 04/09/18 23:45> Objective - Vital Signs/Intake and Output Vital Signs (last 24 hours): Temp Pulse Resp BP Pulse Ox 97.8 F 77 20 116/66 96 04/09/18 16:00 04/09/18 07:04 04/09/18 21:30 04/09/18 10:17 04/09/18 16:00 Intake and Output: 04/09/18 04/10/18 18:59 06:59 Intake Total 550 Output Total 1700 Balance -1150 - Medications Medications: Current Medications Acetaminophen (Tylenol 325mg Tab) 650 mg PO Q6 PRN PRN Reason: Fever >100.4 F Last Admin: 04/09/18 20:09 Dose: 650 mg Apixaban (Eliquis) 2.5 mg PO Q12 [facility] Last Admin: 04/09/18 22:26 Dose: 2.5 mg Diltiazem HCl (Cardizem) 30 mg PO QID [facility] Last Admin: 04/09/18 22:26 Dose: 30 mg Docusate Sodium (Colace) 100 mg PO DAILY [facility] Last Admin: 04/09/18 10:16 Dose: 100 mg Folic Acid (Folic Acid) 1 mg PO DAILY [facility] Last Admin: 04/09/18 10:17 Dose: 1 mg Furosemide (Lasix) 40 mg PO DAILY [facility] Last Admin: 04/09/18 10:17 Dose: 40 mg Imipenem/Cilastatin Sodium 500 (mg/ Sodium Chloride) 100 mls @ 100 mls/hr IVPB Q12H [facility] PRN Reason: Protocol Last Admin: 04/09/18 22:26 Dose: 100 mls/hr Ipratropium [place] (Atrovent) 0.5 mg IH RQ6 [facility] Last Admin: 04/09/18 20:18 Dose: Not Given Lidocaine (Lidoderm) 1 ea TD DAILY [facility] Last Admin: 04/09/18 10:17 Dose: 1 ea Methylprednisolone (Solu-Medrol) 40 mg IVP Q8H [facility] Last Admin: 04/09/18 20:09 Dose: 40 mg Metoprolol Tartrate (Lopressor) 5 mg IVP Q8 [facility] Last Admin: 04/09/18 22:26 Dose: 5 mg Pantoprazole Sodium (Protonix Inj) 40 mg IVP DAILY [facility] Last Admin: 04/09/18 10:16 Dose: 40 mg Senna/Docusate Sodium (Senokot S 50 Mg-8.6 Mg) 1 tab PO HS [facility] Last Admin: 04/09/18 22:27 Dose: 1 tab - Labs Labs: 04/09/18 06:11 04/09/18 06:11 PT 15.2 SECONDS (9.7-12.2) H 04/09/18 06:11 INR 1.4 04/09/18 06:11 APTT 34 SECONDS (21-34) 04/09/18 06:11 Assessment and Plan - Assessment and Plan (Free Text) Assessment: Patient seen and evaluated personally by me Plan of care d/w the medical imaging specialist and as documented
--- NOTE | 2018-04-09 14:36 | CP.CCUPN ---
<Mary Mcknight - Last Filed: 04/09/18 17:43> CCU Subjective - Physician Review Subjective (Free Text): 04/06/18 11:40 Pt seen and examined at bedside. Pt is on BiPAP saturating at 95%. Patient is able to have one sentence conversation off BiPAP. Patient denies having any CP , abdominal pain, N/V/D/C, F/C. 04/08/18 10:54 Pt seen and examined at bedside. No acute events overnight. Improved respiratory status, currently on high flow. Patient states SOB has improved. Denies having any CP, abd pain, N/V/D/C, F/C. 12 point ROS negative except for above mentioned. 04/09/18 14:29 Pt seen and examined at bedside. No acute events overnight. Pt is resting comfortably with no specific complaints. Specifically, denies CP, SOB, abd pain , N/V/D/C, F/C. Pt is currently on NC with SPO2 of 95%. Overnight, pt was on high flow which she tolerated well. Tolerating diet. CCU Objective - Vital Signs / Intake & Output Intake and Output (Last 8hrs): Intake & Output 04/08/18 04/09/18 04/09/18 22:59 06:59 14:59 Intake Total 540 200 Output Total 600 600 Balance -60 -400 Weight 153 lb 6.4 oz Intake: Intake, IV Amount 240 100 Right Wrist 240 100 Oral 300 100 Output: Urine 600 600 Urine, Voided 600 600 - Physical Exam Head: Positive for: Atraumatic, Normocephalic Extroacular Muscles: Positive for: EOMI Conjunctiva: Positive for: Normal Mouth: Positive for: Dry Respiratory/Chest: Positive for: Wheezes, Decreased Breath Sounds, Rhonchi, Tachypneic. Negative for: Respiratory Distress, Accessory Muscle Use Cardiovascular: Positive for: Normal S1, S2, Tachycardic. Negative for: Murmurs Abdomen: Positive for: Normal Bowel Sounds. Negative for: Tenderness, Distention, Peritoneal Signs Upper Extremity: Negative for: Cyanosis Lower Extremity: Positive for: Edema Neurological: Positive for: GCS=15, Speech Normal Skin: Positive for: Warm, Dry, Normal Color. Negative for: Rashes Psychiatric: Positive for: Alert, Oriented x 3, Normal Insight, Normal Concentration - Medications Active Medications: Active Medications Generic Name Dose Route Start Last Admin Trade Name Freq PRN Reason Stop Dose Admin Acetaminophen 650 mg 04/03/18 23:00 04/09/18 00:16 Tylenol 325mg Tab PO 650 mg Q6 PRN Administration Fever >100.4 F Apixaban 2.5 mg 04/07/18 22:00 04/09/18 10:17 Eliquis PO 2.5 mg Q12 KIMBERLEE Administration Diltiazem HCl 30 mg 04/08/18 22:00 04/09/18 10:16 Cardizem PO 30 mg QID KIMBERLEE Administration Docusate Sodium 100 mg 04/05/18 10:15 04/09/18 10:16 Colace PO 100 mg DAILY KIMBERLEE Administration Folic Acid 1 mg 04/07/18 16:45 04/09/18 10:17 Folic Acid PO 1 mg DAILY KIMBERLEE Administration Furosemide 40 mg 04/09/18 10:00 04/09/18 10:17 Lasix PO 40 mg DAILY KIMBERLEE Administration Imipenem/Cilastatin Sodium 500 100 mls @ 100 mls/hr 04/07/18 23:00 04/09/18 10:18 mg/ Sodium Chloride IVPB 100 mls/hr Q12H KIMBERLEE Administration Protocol Ipratropium [place] 0.5 mg 04/04/18 14:00 04/09/18 13:22 Atrovent IH 0.5 mg RQ6 KIMBERLEE Administration Lidocaine 1 ea 04/05/18 10:15 04/09/18 10:17 Lidoderm TD 1 ea DAILY KIMBERLEE Administration Methylprednisolone 40 mg 04/07/18 20:00 04/09/18 04:44 Solu-Medrol IVP 40 mg Q8H KIMBERLEE Administration Metoprolol Tartrate 5 mg 04/07/18 22:00 04/09/18 05:26 Lopressor IVP 5 mg Q8 KIMBERLEE Administration Pantoprazole Sodium 40 mg 04/08/18 10:00 04/09/18 10:16 Protonix Inj IVP 40 mg DAILY KIMBERLEE Administration Senna/Docusate Sodium 1 tab 04/05/18 22:00 04/08/18 21:26 Senokot S 50 Mg-8.6 Mg PO 1 tab HS KIMBERLEE Administration - Patient Studies Lab Studies: Microbiology Studies 04/04/18 06:18 Blood Culture - Final Blood-Venous NO GROWTH AFTER 5 DAYS 04/04/18 06:17 Blood Culture - Final Blood-Venous NO GROWTH AFTER 5 DAYS Gram Stain - Final TEST NOT PERFORMED Lab Studies 04/09/18 04/09/18 04/09/18 Range/Units 06:11 06:11 06:11 WBC 6.3 D (4.8-10.8) K/uL RBC 4.10 (3.80-5.20) Mil/uL Hgb 11.1 (11.0-16.0) g/dL Hct 33.7 L (34.0-47.0) % MCV 82.1 (81.0-99.0) fL MCH 27.0 (27.0-31.0) pg MCHC 32.9 L (33.0-37.0) g/dL RDW 18.4 H (11.5-14.5) % Plt Count 104 L (130-400) K/uL MPV 9.6 (7.2-11.7) fL Neut % (Auto) 85.1 H (50.0-75.0) % Lymph % (Auto) 6.3 L (20.0-40.0) % Gregg % (Auto) 8.3 (0.0-10.0) % Eos % (Auto) 0.0 (0.0-4.0) % Baso % (Auto) 0.3 (0.0-2.0) % Neut # (Auto) 5.4 (1.8-7.0) K/uL Lymph # (Auto) 0.4 L (1.0-4.3) K/uL Gregg # (Auto) 0.5 (0.0-0.8) K/uL Eos # (Auto) 0.0 (0.0-0.7) K/uL Baso # (Auto) 0.0 (0.0-0.2) K/uL Neutrophils % (Manual) 83 H (50-75) % Lymphocytes % (Manual) 9 L (20-40) % Monocytes % (Manual) 8 (0-10) % Platelet Estimate Slightly decreased L (NORMAL) Large Platelets Present Hypochromasia (manual) Slight Poikilocytosis (manual Slight Anisocytosis (manual) Slight PT 15.2 H (9.7-12.2) SECONDS INR 1.4 APTT 34 (21-34) SECONDS Puncture Site pCO2 (35-45) mm/Hg pO2 (80-100) mm/Hg HCO3 (21-28) mmol/L ABG pH (7.35-7.45) ABG Total CO2 (22-28) mmol/L ABG O2 Saturation (95-98) % ABG Base Excess (-2.0-3.0) mmol/L ABG Hemoglobin (11.7-17.4) g/dL ABG Carboxyhemoglobin (0.5-1.5) % POC ABG HHb (Measured) (0.0-5.0) % ABG Methemoglobin (0.0-3.0) % Gregory Test A-a O2 Difference mm/Hg Respiratory Index Hgb O2 Saturation (95.0-98.0) % FiO2 % Sodium 136 (132-148) mmol/L Potassium 4.2 (3.6-5.2) mmol/L Chloride 98 (98-107) mmol/L Carbon Dioxide 27 (22-30) mmol/L Anion Gap 16 (10-20) BUN 50 H (7-17) mg/dL Creatinine 1.4 H (0.7-1.2) mg/dL Est GFR ( Amer) 43 Est GFR (Non-Af Amer) 36 Random Glucose 153 H (65-105) mg/dL Calcium 9.2 (8.6-10.4) mg/dl Total Bilirubin 1.7 H (0.2-1.3) mg/dL AST 41 H (14-36) U/L ALT 37 (9-52) U/L Alkaline Phosphatase 230 H D (38-126) U/L Total Protein 5.7 L (6.3-8.3) g/dL Albumin 2.9 L (3.5-5.0) g/dL Globulin 2.8 (2.2-3.9) gm/dL Albumin/Globulin Ratio 1.0 (1.0-2.1) 04/09/18 Range/Units 05:27 WBC (4.8-10.8) K/uL RBC (3.80-5.20) Mil/uL Hgb (11.0-16.0) g/dL Hct (34.0-47.0) % MCV (81.0-99.0) fL MCH (27.0-31.0) pg MCHC (33.0-37.0) g/dL RDW (11.5-14.5) % Plt Count (130-400) K/uL MPV (7.2-11.7) fL Neut % (Auto) (50.0-75.0) % Lymph % (Auto) (20.0-40.0) % Gregg % (Auto) (0.0-10.0) % Eos % (Auto) (0.0-4.0) % Baso % (Auto) (0.0-2.0) % Neut # (Auto) (1.8-7.0) K/uL Lymph # (Auto) (1.0-4.3) K/uL Gregg # (Auto) (0.0-0.8) K/uL Eos # (Auto) (0.0-0.7) K/uL Baso # (Auto) (0.0-0.2) K/uL Neutrophils % (Manual) (50-75) % Lymphocytes % (Manual) (20-40) % Monocytes % (Manual) (0-10) % Platelet Estimate (NORMAL) Large Platelets Hypochromasia (manual) Poikilocytosis (manual Anisocytosis (manual) PT (9.7-12.2) SECONDS INR APTT (21-34) SECONDS Puncture Site L bra pCO2 39 (35-45) mm/Hg pO2 107 H (80-100) mm/Hg HCO3 28.3 H (21-28) mmol/L ABG pH 7.47 H (7.35-7.45) ABG Total CO2 29.6 H (22-28) mmol/L ABG O2 Saturation 98.4 H (95-98) % ABG Base Excess 4.4 H (-2.0-3.0) mmol/L ABG Hemoglobin 10.8 L (11.7-17.4) g/dL ABG Carboxyhemoglobin 1.4 (0.5-1.5) % POC ABG HHb (Measured) 1.6 (0.0-5.0) % ABG Methemoglobin 1.0 (0.0-3.0) % Gregory Test Na A-a O2 Difference 129.0 mm/Hg Respiratory Index 1.2 Hgb O2 Saturation 96.0 (95.0-98.0) % FiO2 40.0 % Sodium (132-148) mmol/L Potassium (3.6-5.2) mmol/L Chloride (98-107) mmol/L Carbon Dioxide (22-30) mmol/L Anion Gap (10-20) BUN (7-17) mg/dL Creatinine (0.7-1.2) mg/dL Est GFR ( Amer) Est GFR (Non-Af Amer) Random Glucose (65-105) mg/dL Calcium (8.6-10.4) mg/dl Total Bilirubin (0.2-1.3) mg/dL AST (14-36) U/L ALT (9-52) U/L Alkaline Phosphatase (38-126) U/L Total Protein (6.3-8.3) g/dL Albumin (3.5-5.0) g/dL Globulin (2.2-3.9) gm/dL Albumin/Globulin Ratio (1.0-2.1) Laboratory Results - last 24 hr 04/09/18 04/09/18 04/09/18 05:27 06:11 06:11 WBC 6.3 D RBC 4.10 Hgb 11.1 Hct 33.7 L MCV 82.1 MCH 27.0 MCHC 32.9 L RDW 18.4 H Plt Count 104 L MPV 9.6 Neut % (Auto) 85.1 H Lymph % (Auto) 6.3 L Gregg % (Auto) 8.3 Eos % (Auto) 0.0 Baso % (Auto) 0.3 Neut # (Auto) 5.4 Lymph # (Auto) 0.4 L Gregg # (Auto) 0.5 Eos # (Auto) 0.0 Baso # (Auto) 0.0 Neutrophils % (Manual) 83 H Lymphocytes % (Manual) 9 L Monocytes % (Manual) 8 Platelet Estimate Slightly decreased L Large Platelets Present Hypochromasia (manual) Slight Poikilocytosis (manual Slight Anisocytosis (manual) Slight PT 15.2 H INR 1.4 APTT 34 Puncture Site L bra pCO2 39 pO2 107 H HCO3 28.3 H ABG pH 7.47 H ABG Total CO2 29.6 H ABG O2 Saturation 98.4 H ABG Base Excess 4.4 H ABG Hemoglobin 10.8 L ABG Carboxyhemoglobin 1.4 POC ABG HHb (Measured) 1.6 ABG Methemoglobin 1.0 Gregory Test Na A-a O2 Difference 129.0 Respiratory Index 1.2 Hgb O2 Saturation 96.0 FiO2 40.0 Sodium Potassium Chloride Carbon Dioxide Anion Gap BUN Creatinine Est GFR ( Amer) Est GFR (Non-Af Amer) Random Glucose Calcium Total Bilirubin AST ALT Alkaline Phosphatase Total Protein Albumin Globulin Albumin/Globulin Ratio 04/09/18 06:11 WBC RBC Hgb Hct MCV MCH MCHC RDW Plt Count MPV Neut % (Auto) Lymph % (Auto) Gregg % (Auto) Eos % (Auto) Baso % (Auto) Neut # (Auto) Lymph # (Auto) Gregg # (Auto) Eos # (Auto) Baso # (Auto) Neutrophils % (Manual) Lymphocytes % (Manual) Monocytes % (Manual) Platelet Estimate Large Platelets Hypochromasia (manual) Poikilocytosis (manual Anisocytosis (manual) PT INR APTT Puncture Site pCO2 pO2 HCO3 ABG pH ABG Total CO2 ABG O2 Saturation ABG Base Excess ABG Hemoglobin ABG Carboxyhemoglobin POC ABG HHb (Measured) ABG Methemoglobin Gregory Test A-a O2 Difference Respiratory Index Hgb O2 Saturation FiO2 Sodium 136 Potassium 4.2 Chloride 98 Carbon Dioxide 27 Anion Gap 16 BUN 50 H Creatinine 1.4 H Est GFR ( Amer) 43 Est GFR (Non-Af Amer) 36 Random Glucose 153 H Calcium 9.2 Total Bilirubin 1.7 H AST 41 H ALT 37 Alkaline Phosphatase 230 H D Total Protein 5.7 L Albumin 2.9 L Globulin 2.8 Albumin/Globulin Ratio 1.0 Review of Systems - Constitutional Constitutional: absent: Fever, Chills - EENT Eyes: absent: Blurred Vision, Change in Vision Nose/Mouth/Throat: absent: Nasal Congestion, Nasal Discharge - Cardiovascular Cardiovascular: absent: Chest Pain, Chest Pain with Activity, Dyspnea, Edema - Respiratory Respiratory: absent: Cough, Dyspnea, Dyspnea on Exertion, Wheezing, Chest Congestion - Gastrointestinal Gastrointestinal: absent: Abdominal Pain, Constipation, Diarrhea, Nausea, Vomiting - Genitourinary Genitourinary: absent: Dysuria, Hematuria, Urinary Urgency - Musculoskeletal Musculoskeletal: absent: Back Pain, Numbness, Tingling - Integumentary Integumentary: absent: Lesions, Rash - Neurological Neurological: absent: Headaches, Weakness - Psychiatric Psychiatric: absent: Anxiety, Depression Critical Care Progress Note - Prophylaxis GI Prophylaxis GI: PPI - Prophylaxis DVT Prophylaxis DVT: SCDs - Nutrition Nutrition: Nutrition Category Date Time Status Heart Healthy Diet [DIET] Diets 04/08/18 Dinner Active Assessment/Plan - Assessment and Plan (Free Text) Assessment: 87 yo F admitted with hypoxemic respiratory failure 2/2 CHF exacerbation vs. PNA admitted to ICU on 04/03/18 for respiratory distress 1. CHF exacerbation- EF 04/04~44% -pBNP 23,000 on admission -lasix 20mg BID IV -cardio consult Dr. Gaitan - I's 1050 O's 1200 - CXR slightly improved today 2. A. Fib - metoprolol 5 mg IV q8 - Cardizem 30 mg po QID - Pt restarted on Eliquis at 2.5 mg BID 3. Hypoxemic respiratory failure - Improving - ipratropium q6 - Solumedrol 40 IVP q 8. Will consider decreasing to q 12 4. Right sided apical PNA -immipenem 500mg q8 - ID, Dr. Loredo is consulted 5. PUD - endoscopy done on 03/19/18 showed non-bleeding esophageal ulcer, esophagitis, and non-bleeding duodenal ulcer with no stigmata of bleeding - Continue protonix 40 IVP qd - will advance diet as tolerated 6. Constipation - Senokot, colace 7. UTI - urine culture positive for coagulase negative staph - Continue Abx 8. Pancytopenia - Improving - Pt transfused PRBC on admission - Hgb stable - Continue iron supplements - negative blood cultures - Bone marrow biopsy done on 03/24/18 showed hypercellular marrow with maturing trilineage hematopoeisis and a decreased M:E ratio. Stoarge iron present. No evidence of overt myeodysplasia, plasma cell myeloma or lymphoma. Report in chart 9. Sepsis likely 2/2 UTI vs. PNA - Afebrile overnight. - Urine culture positive on admission. Repeat cultures positive for yeast - immipenem 500mg q8 Ppx - SCDs - Protonix 40mg - Eliquis KaryWBiju Jules - Date & Time Date: 04/09/18 Time: 14:38 <Markus Jules - Last Filed: 04/09/18 18:35> CCU Objective - Vital Signs / Intake & Output Vital Signs (Last 4 hours): Vital Signs Temp Pulse Ox 04/09/18 16:00 97.8 F 96 Intake and Output (Last 8hrs): Intake & Output 04/09/18 04/09/18 04/09/18 06:59 14:59 22:59 Intake Total 200 375 175 Output Total 600 1400 300 Balance -400 -1025 -125 Weight 153 lb 6.4 oz Intake: Intake, IV Amount 100 100 Right Wrist 100 100 Oral 100 275 175 Output: Urine 600 1400 300 Urine, Voided 600 1400 300 Other: # Voids Urine, Voided 1 1 - Medications Active Medications: Active Medications Generic Name Dose Route Start Last Admin Trade Name Freq PRN Reason Stop Dose Admin Acetaminophen 650 mg 04/03/18 23:00 04/09/18 00:16 Tylenol 325mg Tab PO 650 mg Q6 PRN Administration Fever >100.4 F Apixaban 2.5 mg 04/07/18 22:00 04/09/18 10:17 Eliquis PO 2.5 mg Q12 KIMBERLEE Administration Diltiazem HCl 30 mg 04/08/18 22:00 04/09/18 17:29 Cardizem PO 30 mg QID KIMBERLEE Administration Docusate Sodium 100 mg 04/05/18 10:15 04/09/18 10:16 Colace PO 100 mg DAILY KIMBERLEE Administration Folic Acid 1 mg 04/07/18 16:45 04/09/18 10:17 Folic Acid PO 1 mg DAILY KIMBERLEE Administration Furosemide 40 mg 04/09/18 10:00 04/09/18 10:17 Lasix PO 40 mg DAILY KIMBERLEE Administration Imipenem/Cilastatin Sodium 500 100 mls @ 100 mls/hr 04/07/18 23:00 04/09/18 10:18 mg/ Sodium Chloride IVPB 100 mls/hr Q12H KIMBERLEE Administration Protocol Ipratropium [place] 0.5 mg 04/04/18 14:00 04/09/18 13:22 Atrovent IH 0.5 mg RQ6 KIMBERLEE Administration Lidocaine 1 ea 04/05/18 10:15 04/09/18 10:17 Lidoderm TD 1 ea DAILY KIMBERLEE Administration Methylprednisolone 40 mg 04/07/18 20:00 04/09/18 13:00 Solu-Medrol IVP 40 mg Q8H KIMBERLEE Administration Metoprolol Tartrate 5 mg 04/07/18 22:00 04/09/18 14:34 Lopressor IVP 5 mg Q8 KIMBERLEE Administration Pantoprazole Sodium 40 mg 04/08/18 10:00 04/09/18 10:16 Protonix Inj IVP 40 mg DAILY KIMBERLEE Administration Senna/Docusate Sodium 1 tab 04/05/18 22:00 04/08/18 21:26 Senokot S 50 Mg-8.6 Mg PO 1 tab HS KIMBERLEE Administration - Patient Studies Lab Studies: Microbiology Studies 04/04/18 06:18 Blood Culture - Final Blood-Venous NO GROWTH AFTER 5 DAYS 04/04/18 06:17 Blood Culture - Final Blood-Venous NO GROWTH AFTER 5 DAYS Gram Stain - Final TEST NOT PERFORMED Lab Studies 04/09/18 04/09/18 04/09/18 Range/Units 06:11 06:11 06:11 WBC 6.3 D (4.8-10.8) K/uL RBC 4.10 (3.80-5.20) Mil/uL Hgb 11.1 (11.0-16.0) g/dL Hct 33.7 L (34.0-47.0) % MCV 82.1 (81.0-99.0) fL MCH 27.0 (27.0-31.0) pg MCHC 32.9 L (33.0-37.0) g/dL RDW 18.4 H (11.5-14.5) % Plt Count 104 L (130-400) K/uL MPV 9.6 (7.2-11.7) fL Neut % (Auto) 85.1 H (50.0-75.0) % Lymph % (Auto) 6.3 L (20.0-40.0) % Gregg % (Auto) 8.3 (0.0-10.0) % Eos % (Auto) 0.0 (0.0-4.0) % Baso % (Auto) 0.3 (0.0-2.0) % Neut # (Auto) 5.4 (1.8-7.0) K/uL Lymph # (Auto) 0.4 L (1.0-4.3) K/uL Gregg # (Auto) 0.5 (0.0-0.8) K/uL Eos # (Auto) 0.0 (0.0-0.7) K/uL Baso # (Auto) 0.0 (0.0-0.2) K/uL Neutrophils % (Manual) 83 H (50-75) % Lymphocytes % (Manual) 9 L (20-40) % Monocytes % (Manual) 8 (0-10) % Platelet Estimate Slightly decreased L (NORMAL) Large Platelets Present Hypochromasia (manual) Slight Poikilocytosis (manual Slight Anisocytosis (manual) Slight PT 15.2 H (9.7-12.2) SECONDS INR 1.4 APTT 34 (21-34) SECONDS Puncture Site pCO2 (35-45) mm/Hg pO2 (80-100) mm/Hg HCO3 (21-28) mmol/L ABG pH (7.35-7.45) ABG Total CO2 (22-28) mmol/L ABG O2 Saturation (95-98) % ABG Base Excess (-2.0-3.0) mmol/L ABG Hemoglobin (11.7-17.4) g/dL ABG Carboxyhemoglobin (0.5-1.5) % POC ABG HHb (Measured) (0.0-5.0) % ABG Methemoglobin (0.0-3.0) % Gregory Test A-a O2 Difference mm/Hg Respiratory Index Hgb O2 Saturation (95.0-98.0) % FiO2 % Sodium 136 (132-148) mmol/L Potassium 4.2 (3.6-5.2) mmol/L Chloride 98 (98-107) mmol/L Carbon Dioxide 27 (22-30) mmol/L Anion Gap 16 (10-20) BUN 50 H (7-17) mg/dL Creatinine 1.4 H (0.7-1.2) mg/dL Est GFR ( Amer) 43 Est GFR (Non-Af Amer) 36 Random Glucose 153 H (65-105) mg/dL Calcium 9.2 (8.6-10.4) mg/dl Total Bilirubin 1.7 H (0.2-1.3) mg/dL AST 41 H (14-36) U/L ALT 37 (9-52) U/L Alkaline Phosphatase 230 H D (38-126) U/L Total Protein 5.7 L (6.3-8.3) g/dL Albumin 2.9 L (3.5-5.0) g/dL Globulin 2.8 (2.2-3.9) gm/dL Albumin/Globulin Ratio 1.0 (1.0-2.1) 04/09/18 Range/Units 05:27 WBC (4.8-10.8) K/uL RBC (3.80-5.20) Mil/uL Hgb (11.0-16.0) g/dL Hct (34.0-47.0) % MCV (81.0-99.0) fL MCH (27.0-31.0) pg MCHC (33.0-37.0) g/dL RDW (11.5-14.5) % Plt Count (130-400) K/uL MPV (7.2-11.7) fL Neut % (Auto) (50.0-75.0) % Lymph % (Auto) (20.0-40.0) % Gregg % (Auto) (0.0-10.0) % Eos % (Auto) (0.0-4.0) % Baso % (Auto) (0.0-2.0) % Neut # (Auto) (1.8-7.0) K/uL Lymph # (Auto) (1.0-4.3) K/uL Gregg # (Auto) (0.0-0.8) K/uL Eos # (Auto) (0.0-0.7) K/uL Baso # (Auto) (0.0-0.2) K/uL Neutrophils % (Manual) (50-75) % Lymphocytes % (Manual) (20-40) % Monocytes % (Manual) (0-10) % Platelet Estimate (NORMAL) Large Platelets Hypochromasia (manual) Poikilocytosis (manual Anisocytosis (manual) PT (9.7-12.2) SECONDS INR APTT (21-34) SECONDS Puncture Site L bra pCO2 39 (35-45) mm/Hg pO2 107 H (80-100) mm/Hg HCO3 28.3 H (21-28) mmol/L ABG pH 7.47 H (7.35-7.45) ABG Total CO2 29.6 H (22-28) mmol/L ABG O2 Saturation 98.4 H (95-98) % ABG Base Excess 4.4 H (-2.0-3.0) mmol/L ABG Hemoglobin 10.8 L (11.7-17.4) g/dL ABG Carboxyhemoglobin 1.4 (0.5-1.5) % POC ABG HHb (Measured) 1.6 (0.0-5.0) % ABG Methemoglobin 1.0 (0.0-3.0) % Gregory Test Na A-a O2 Difference 129.0 mm/Hg Respiratory Index 1.2 Hgb O2 Saturation 96.0 (95.0-98.0) % FiO2 40.0 % Sodium (132-148) mmol/L Potassium (3.6-5.2) mmol/L Chloride (98-107) mmol/L Carbon Dioxide (22-30) mmol/L Anion Gap (10-20) BUN (7-17) mg/dL Creatinine (0.7-1.2) mg/dL Est GFR ( Amer) Est GFR (Non-Af Amer) Random Glucose (65-105) mg/dL Calcium (8.6-10.4) mg/dl Total Bilirubin (0.2-1.3) mg/dL AST (14-36) U/L ALT (9-52) U/L Alkaline Phosphatase (38-126) U/L Total Protein (6.3-8.3) g/dL Albumin (3.5-5.0) g/dL Globulin (2.2-3.9) gm/dL Albumin/Globulin Ratio (1.0-2.1) Laboratory Results - last 24 hr 04/09/18 04/09/18 04/09/18 05:27 06:11 06:11 WBC 6.3 D RBC 4.10 Hgb 11.1 Hct 33.7 L MCV 82.1 MCH 27.0 MCHC 32.9 L RDW 18.4 H Plt Count 104 L MPV 9.6 Neut % (Auto) 85.1 H Lymph % (Auto) 6.3 L Gregg % (Auto) 8.3 Eos % (Auto) 0.0 Baso % (Auto) 0.3 Neut # (Auto) 5.4 Lymph # (Auto) 0.4 L Gregg # (Auto) 0.5 Eos # (Auto) 0.0 Baso # (Auto) 0.0 Neutrophils % (Manual) 83 H Lymphocytes % (Manual) 9 L Monocytes % (Manual) 8 Platelet Estimate Slightly decreased L Large Platelets Present Hypochromasia (manual) Slight Poikilocytosis (manual Slight Anisocytosis (manual) Slight PT 15.2 H INR 1.4 APTT 34 Puncture Site L bra pCO2 39 pO2 107 H HCO3 28.3 H ABG pH 7.47 H ABG Total CO2 29.6 H ABG O2 Saturation 98.4 H ABG Base Excess 4.4 H ABG Hemoglobin 10.8 L ABG Carboxyhemoglobin 1.4 POC ABG HHb (Measured) 1.6 ABG Methemoglobin 1.0 Gregory Test Na A-a O2 Difference 129.0 Respiratory Index 1.2 Hgb O2 Saturation 96.0 FiO2 40.0 Sodium Potassium Chloride Carbon Dioxide Anion Gap BUN Creatinine Est GFR ( Amer) Est GFR (Non-Af Amer) Random Glucose Calcium Total Bilirubin AST ALT Alkaline Phosphatase Total Protein Albumin Globulin Albumin/Globulin Ratio 04/09/18 06:11 WBC RBC Hgb Hct MCV MCH MCHC RDW Plt Count MPV Neut % (Auto) Lymph % (Auto) Gregg % (Auto) Eos % (Auto) Baso % (Auto) Neut # (Auto) Lymph # (Auto) Gregg # (Auto) Eos # (Auto) Baso # (Auto) Neutrophils % (Manual) Lymphocytes % (Manual) Monocytes % (Manual) Platelet Estimate Large Platelets Hypochromasia (manual) Poikilocytosis (manual Anisocytosis (manual) PT INR APTT Puncture Site pCO2 pO2 HCO3 ABG pH ABG Total CO2 ABG O2 Saturation ABG Base Excess ABG Hemoglobin ABG Carboxyhemoglobin POC ABG HHb (Measured) ABG Methemoglobin Gregory Test A-a O2 Difference Respiratory Index Hgb O2 Saturation FiO2 Sodium 136 Potassium 4.2 Chloride 98 Carbon Dioxide 27 Anion Gap 16 BUN 50 H Creatinine 1.4 H Est GFR ( Amer) 43 Est GFR (Non-Af Amer) 36 Random Glucose 153 H Calcium 9.2 Total Bilirubin 1.7 H AST 41 H ALT 37 Alkaline Phosphatase 230 H D Total Protein 5.7 L Albumin 2.9 L Globulin 2.8 Albumin/Globulin Ratio 1.0 Critical Care Progress Note - Nutrition Nutrition: Nutrition Category Date Time Status Heart Healthy Diet [DIET] Diets 04/08/18 Dinner Active Attending/Attestation - Attestation I have personally seen and examined this patient.: Yes I have fully participated in the care of the patient.: Yes I have reviewed all pertinent clinical information: Yes Notes (Text): 04/09/18 18:35 Today: , April 09, 2018 The Patient was seen and examined at the bedside, Medical records reviewed, and management issues were discussed and formulated with the house staff. I have reviewed all the relevant clinical, laboratory, hemodynamic, radiographic data and medications Events reviewed Pain issues, skin care, head of the bed elevation, glycemic control were addressed. Agree with above resident's assessment and treatment plans of care as transcribed in Dr. Mcknight's note.
--- NOTE | 2018-04-09 17:25 | CP.PCM.PN ---
Subjective - Date & Time of Evaluation Date of Evaluation: 04/08/18 Time of Evaluation: 12:00 - Subjective Subjective: On bipap Objective - Vital Signs/Intake and Output Vital Signs (last 24 hours): Temp Pulse Resp BP Pulse Ox 97.8 F 77 17 116/66 96 04/09/18 16:00 04/09/18 07:04 04/09/18 07:04 04/09/18 10:17 04/09/18 16:00 Intake and Output: 04/09/18 04/09/18 06:59 18:59 Intake Total 470 425 Output Total 800 1400 Balance -330 975 - Medications Medications: Current Medications Acetaminophen (Tylenol 325mg Tab) 650 mg PO Q6 PRN PRN Reason: Fever >100.4 F Last Admin: 04/09/18 00:16 Dose: 650 mg Apixaban (Eliquis) 2.5 mg PO Q12 [facility] Last Admin: 04/09/18 10:17 Dose: 2.5 mg Diltiazem HCl (Cardizem) 30 mg PO QID [facility] Last Admin: 04/09/18 14:34 Dose: 30 mg Docusate Sodium (Colace) 100 mg PO DAILY [facility] Last Admin: 04/09/18 10:16 Dose: 100 mg Folic Acid (Folic Acid) 1 mg PO DAILY [facility] Last Admin: 04/09/18 10:17 Dose: 1 mg Furosemide (Lasix) 40 mg PO DAILY [facility] Last Admin: 04/09/18 10:17 Dose: 40 mg Imipenem/Cilastatin Sodium 500 (mg/ Sodium Chloride) 100 mls @ 100 mls/hr IVPB Q12H [facility] PRN Reason: Protocol Last Admin: 04/09/18 10:18 Dose: 100 mls/hr Ipratropium [place] (Atrovent) 0.5 mg IH RQ6 [facility] Last Admin: 04/09/18 13:22 Dose: 0.5 mg Lidocaine (Lidoderm) 1 ea TD DAILY [facility] Last Admin: 04/09/18 10:17 Dose: 1 ea Methylprednisolone (Solu-Medrol) 40 mg IVP Q8H [facility] Last Admin: 04/09/18 13:00 Dose: 40 mg Metoprolol Tartrate (Lopressor) 5 mg IVP Q8 [facility] Last Admin: 04/09/18 14:34 Dose: 5 mg Pantoprazole Sodium (Protonix Inj) 40 mg IVP DAILY [facility] Last Admin: 04/09/18 10:16 Dose: 40 mg Senna/Docusate Sodium (Senokot S 50 Mg-8.6 Mg) 1 tab PO HS [facility] Last Admin: 04/08/18 21:26 Dose: 1 tab - Labs Labs: 04/09/18 06:11 04/09/18 06:11 PT 15.2 SECONDS (9.7-12.2) H 04/09/18 06:11 INR 1.4 04/09/18 06:11 APTT 34 SECONDS (21-34) 04/09/18 06:11 - Head Exam Head Exam: ATRAUMATIC - Eye Exam Eye Exam: Normal appearance - ENT Exam ENT Exam: Mucous Membranes Dry - Respiratory Exam Respiratory Exam: Respiratory Distress - Cardiovascular Exam Cardiovascular Exam: +S1, +S2 - GI/Abdominal Exam GI & Abdominal Exam: Normal Bowel Sounds Assessment and Plan (1) Anemia Assessment & Plan: chronic disease, mild CKD no iron/b12/folate deficiency haptoglobin not decreased; not hemolysis ? intermittent GI blood loss no evidence of bone marrow pathology Status: Acute (2) Thrombocytopenia Assessment & Plan: mild improved ? related to infection ? medication no bone marrow pathology Status: Acute
--- NOTE | 2018-04-09 17:26 | CP.PCM.PN ---
Subjective - Date & Time of Evaluation Date of Evaluation: 04/09/18 Time of Evaluation: 14:00 - Subjective Subjective: Appears comfortable, son at bedside Objective - Vital Signs/Intake and Output Vital Signs (last 24 hours): Temp Pulse Resp BP Pulse Ox 97.8 F 77 17 116/66 96 04/09/18 16:00 04/09/18 07:04 04/09/18 07:04 04/09/18 10:17 04/09/18 16:00 Intake and Output: 04/09/18 04/09/18 06:59 18:59 Intake Total 470 425 Output Total 800 1400 Balance -330 -655 - Medications Medications: Current Medications Acetaminophen (Tylenol 325mg Tab) 650 mg PO Q6 PRN PRN Reason: Fever >100.4 F Last Admin: 04/09/18 00:16 Dose: 650 mg Apixaban (Eliquis) 2.5 mg PO Q12 [facility] Last Admin: 04/09/18 10:17 Dose: 2.5 mg Diltiazem HCl (Cardizem) 30 mg PO QID [facility] Last Admin: 04/09/18 14:34 Dose: 30 mg Docusate Sodium (Colace) 100 mg PO DAILY [facility] Last Admin: 04/09/18 10:16 Dose: 100 mg Folic Acid (Folic Acid) 1 mg PO DAILY [facility] Last Admin: 04/09/18 10:17 Dose: 1 mg Furosemide (Lasix) 40 mg PO DAILY [facility] Last Admin: 04/09/18 10:17 Dose: 40 mg Imipenem/Cilastatin Sodium 500 (mg/ Sodium Chloride) 100 mls @ 100 mls/hr IVPB Q12H [facility] PRN Reason: Protocol Last Admin: 04/09/18 10:18 Dose: 100 mls/hr Ipratropium [place] (Atrovent) 0.5 mg IH RQ6 [facility] Last Admin: 04/09/18 13:22 Dose: 0.5 mg Lidocaine (Lidoderm) 1 ea TD DAILY [facility] Last Admin: 04/09/18 10:17 Dose: 1 ea Methylprednisolone (Solu-Medrol) 40 mg IVP Q8H [facility] Last Admin: 04/09/18 13:00 Dose: 40 mg Metoprolol Tartrate (Lopressor) 5 mg IVP Q8 [facility] Last Admin: 04/09/18 14:34 Dose: 5 mg Pantoprazole Sodium (Protonix Inj) 40 mg IVP DAILY [facility] Last Admin: 04/09/18 10:16 Dose: 40 mg Senna/Docusate Sodium (Senokot S 50 Mg-8.6 Mg) 1 tab PO HS [facility] Last Admin: 04/08/18 21:26 Dose: 1 tab - Labs Labs: 04/09/18 06:11 04/09/18 06:11 PT 15.2 SECONDS (9.7-12.2) H 04/09/18 06:11 INR 1.4 04/09/18 06:11 APTT 34 SECONDS (21-34) 04/09/18 06:11 - Head Exam Head Exam: ATRAUMATIC - Eye Exam Eye Exam: Normal appearance - ENT Exam ENT Exam: Mucous Membranes Dry - Respiratory Exam Respiratory Exam: Decreased Breath Sounds - Cardiovascular Exam Cardiovascular Exam: +S1, +S2 - GI/Abdominal Exam GI & Abdominal Exam: Normal Bowel Sounds Assessment and Plan (1) Anemia Assessment & Plan: chronic disease, mild CKD no iron/b12/folate deficiency haptoglobin not decreased; not hemolysis ? intermittent GI blood loss no evidence of bone marrow pathology Status: Acute (2) Thrombocytopenia Assessment & Plan: mild improved ? related to infection ? medication no bone marrow pathology Status: Acute
--- NOTE | 2018-04-09 20:03 | CP.PCM.PN ---
Subjective - Date & Time of Evaluation Date of Evaluation: 04/09/18 Time of Evaluation: 20:01 - Subjective Subjective: INFECTIOUS DISEASE ICU PROGRESS NOTE LUCITA WETZEL MD, FACP ICU #[id number] 04/09/2018 CHART REVIEWED PT EXAMINED CASE DISCUSSED BIPAP OFF, BREATHING MORE COMFORTABLY LUNGS BETTER AIRSOUNDS COR ATRIAL FIB ABD CONSTIPATED EXT EDEMA TO OBSERVE ON AB FEW MORE DAYS PRIMAXIN ADJUSTED PREVIOUSLY FOR GFR. LUCITA WETZEL MD, FACP Objective - Vital Signs/Intake and Output Vital Signs (last 24 hours): Temp Pulse Resp BP Pulse Ox 97.8 F 77 17 116/66 96 04/09/18 16:00 04/09/18 07:04 04/09/18 07:04 04/09/18 10:17 04/09/18 16:00 Intake and Output: 04/09/18 04/10/18 18:59 06:59 Intake Total 550 Output Total 1700 Balance -1150 - Medications Medications: Current Medications Acetaminophen (Tylenol 325mg Tab) 650 mg PO Q6 PRN PRN Reason: Fever >100.4 F Last Admin: 04/09/18 00:16 Dose: 650 mg Apixaban (Eliquis) 2.5 mg PO Q12 [facility] Last Admin: 04/09/18 10:17 Dose: 2.5 mg Diltiazem HCl (Cardizem) 30 mg PO QID [facility] Last Admin: 04/09/18 17:29 Dose: 30 mg Docusate Sodium (Colace) 100 mg PO DAILY [facility] Last Admin: 04/09/18 10:16 Dose: 100 mg Folic Acid (Folic Acid) 1 mg PO DAILY [facility] Last Admin: 04/09/18 10:17 Dose: 1 mg Furosemide (Lasix) 40 mg PO DAILY [facility] Last Admin: 04/09/18 10:17 Dose: 40 mg Imipenem/Cilastatin Sodium 500 (mg/ Sodium Chloride) 100 mls @ 100 mls/hr IVPB Q12H [facility] PRN Reason: Protocol Last Admin: 04/09/18 10:18 Dose: 100 mls/hr Ipratropium [place] (Atrovent) 0.5 mg IH RQ6 [facility] Last Admin: 04/09/18 13:22 Dose: 0.5 mg Lidocaine (Lidoderm) 1 ea TD DAILY [facility] Last Admin: 04/09/18 10:17 Dose: 1 ea Methylprednisolone (Solu-Medrol) 40 mg IVP Q8H [facility] Last Admin: 04/09/18 13:00 Dose: 40 mg Metoprolol Tartrate (Lopressor) 5 mg IVP Q8 [facility] Last Admin: 04/09/18 14:34 Dose: 5 mg Pantoprazole Sodium (Protonix Inj) 40 mg IVP DAILY [facility] Last Admin: 04/09/18 10:16 Dose: 40 mg Senna/Docusate Sodium (Senokot S 50 Mg-8.6 Mg) 1 tab PO HS [facility] Last Admin: 04/08/18 21:26 Dose: 1 tab - Labs Labs: 04/09/18 06:11 04/09/18 06:11 PT 15.2 SECONDS (9.7-12.2) H 04/09/18 06:11 INR 1.4 04/09/18 06:11 APTT 34 SECONDS (21-34) 04/09/18 06:11 Assessment and Plan (1) Pancytopenia Status: Acute (2) HAP (hospital-acquired pneumonia) Status: Suspected (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
[2018-04-09] MEDS: Docusate-Senna 50 mg-8.6 mg Tab PO SCH (22:27)
--- NOTE | 2018-04-10 00:32 | CP.PCM.PN ---
Subjective - Date & Time of Evaluation Date of Evaluation: 04/09/18 Time of Evaluation: 20:29 - Subjective Subjective: Patient is still having episodes of shortness of breath. Also complaining of cough. Unable to eat well. Poor appetite noted. Vital signs reviewed Chest bilateral wheezing expiratory noted Regular heart sound. Nontender abdomen. Edema 1+ Labs reviewed Improvement in the hemoglobin noted. Spoke to the patient's family in detail. Assessment and recognition: 87-year-old female with a history of multiple medical problems, atrial fibrillation, on anticoagulation, anemia of unclear etiology. Admitted with acute respiratory insufficiency. On antibiotic. Using CPAP and BiPAP as needed. We will continue to monitor. We will follow the patient Objective - Vital Signs/Intake and Output Vital Signs (last 24 hours): Temp Pulse Resp BP Pulse Ox 97.8 F 77 20 116/66 96 04/09/18 16:00 04/09/18 07:04 04/09/18 21:30 04/09/18 10:17 04/09/18 16:00 Intake and Output: 04/09/18 04/10/18 18:59 06:59 Intake Total 550 Output Total 1700 Balance -1150 - Medications Medications: Current Medications Acetaminophen (Tylenol 325mg Tab) 650 mg PO Q6 PRN PRN Reason: Fever >100.4 F Last Admin: 04/09/18 20:09 Dose: 650 mg Apixaban (Eliquis) 2.5 mg PO Q12 [facility] Last Admin: 04/09/18 22:26 Dose: 2.5 mg Diltiazem HCl (Cardizem) 30 mg PO QID [facility] Last Admin: 04/09/18 22:26 Dose: 30 mg Docusate Sodium (Colace) 100 mg PO DAILY [facility] Last Admin: 04/09/18 10:16 Dose: 100 mg Folic Acid (Folic Acid) 1 mg PO DAILY [facility] Last Admin: 04/09/18 10:17 Dose: 1 mg Furosemide (Lasix) 40 mg PO DAILY [facility] Last Admin: 04/09/18 10:17 Dose: 40 mg Imipenem/Cilastatin Sodium 500 (mg/ Sodium Chloride) 100 mls @ 100 mls/hr IVPB Q12H [facility] PRN Reason: Protocol Last Admin: 04/09/18 22:26 Dose: 100 mls/hr Ipratropium [place] (Atrovent) 0.5 mg IH RQ6 [facility] Last Admin: 04/09/18 20:18 Dose: Not Given Lidocaine (Lidoderm) 1 ea TD DAILY [facility] Last Admin: 04/09/18 10:17 Dose: 1 ea Methylprednisolone (Solu-Medrol) 40 mg IVP Q8H [facility] Last Admin: 04/09/18 20:09 Dose: 40 mg Metoprolol Tartrate (Lopressor) 5 mg IVP Q8 [facility] Last Admin: 04/09/18 22:26 Dose: 5 mg Pantoprazole Sodium (Protonix Inj) 40 mg IVP DAILY [facility] Last Admin: 04/09/18 10:16 Dose: 40 mg Senna/Docusate Sodium (Senokot S 50 Mg-8.6 Mg) 1 tab PO HS [facility] Last Admin: 04/09/18 22:27 Dose: 1 tab - Labs Labs: 04/09/18 06:11 04/09/18 06:11 PT 15.2 SECONDS (9.7-12.2) H 04/09/18 06:11 INR 1.4 04/09/18 06:11 APTT 34 SECONDS (21-34) 04/09/18 06:11
[2018-04-10] MEDS: Ipratropium 0.02% Inhal Soln (0.5 mg/2.5 ml) UD IH SCH ×4 (01:25→19:26)
[2018-04-10] MEDS: MethylPREDNISolone 40 mg Vial IVP SCH ×3 (05:37→20:41)
[2018-04-10] MEDS: Metoprolol 1 mg/ml Inj IVP SCH (05:38)
[2018-04-10 06:43] LABS: BASO % 0.2 % (0.0-2.0); LYMPH # 0.5 K/uL (1.0-4.3); LYMPH % 9.7 % (20.0-40.0); MEAN CELL VOLUME 81.7 fL (81.0-99.0); MEAN CORPUSCULAR HEMOGLOBIN 26.9 pg (27.0-31.0); MEAN CORPUSCULAR HGB CONC 32.9 g/dL (33.0-37.0); MEAN PLATELET VOLUME 9.2 fL (7.2-11.7); MONO # 0.4 K/uL (0.0-0.8); MONO % 7.2 % (0.0-10.0); NEUT # 4.4 K/uL (1.8-7.0); NEUT % 82.9 % (50.0-75.0); NRBC % 0.1 % (0.0-2.0); PLATELET COUNT 91 K/uL (130-400); RBC 3.74 Mil/uL (3.80-5.20); RED CELL DISTRIBUTION WIDTH 18.6 % (11.5-14.5); WHITE BLOOD COUNT 5.3 K/uL (4.8-10.8)
[2018-04-10 06:48] LABS: INR 1.4; PROTHROMBIN TIME 14.9 SECONDS (9.7-12.2)
[2018-04-10 07:02] LABS: ALBUMIN 2.7 g/dL (3.5-5.0)
[2018-04-10 08:36] LABS: BANDS 2 % (0-2); TOTAL CELLS COUNTED 100
[2018-04-10 08:37] LABS: ANISOCYTOSIS MODERATE; HYPOCHROMIC SLIGHT; LYMPHOCYTE 9 % (20-40); MONOCYTE 8 % (0-10); NEUTROPHIL 81 % (50-75); OVALOCYTES SLIGHT; PLATELET ESTIMATE DECREASED (NORMAL)
[2018-04-10] MEDS: Lidocaine 5% Patch TD SCH (09:16)
[2018-04-10] MEDS ORDERED: Metoprolol 1 mg/ml Inj IVP PRN (10:30)
--- NOTE | 2018-04-10 12:17 | CARD ---
APPROVED REPORT Date of service: 04/08/2018 EKG Measurement Heart [id number] <Conclusion> Atrial fibrillation Left axis deviation Left bundle branch block Abnormal ECG
--- NOTE | 2018-04-10 12:31 | CP.PCM.PN ---
<Laura Valle - Last Filed: 04/10/18 15:12> Subjective - Date & Time of Evaluation Date of Evaluation: 04/10/18 Time of Evaluation: 12:30 - Subjective Subjective: PGY2- Progress Note for Dr. Gaitan Patient seen and examined sitting up in a chair. Patient is on nasal cannula and off BiPAP. Patient says her breathing is improving. Patient denies any chest pain, abdominal pain, nausea, vomiting, constipation, or diarrhea. As per family, patient is doing much better. Objective - Vital Signs/Intake and Output Vital Signs (last 24 hours): Temp Pulse Resp BP Pulse Ox 97.6 F 114 H 17 116/68 94 L 04/10/18 08:00 04/10/18 11:53 04/10/18 11:53 04/10/18 11:53 04/10/18 11:53 Intake and Output: 04/10/18 04/10/18 06:59 18:59 Intake Total 100 340 Output Total 200 Balance -100 340 - Medications Medications: Current Medications Acetaminophen (Tylenol 325mg Tab) 650 mg PO Q6 PRN PRN Reason: Fever >100.4 F Last Admin: 04/10/18 11:47 Dose: 650 mg Apixaban (Eliquis) 2.5 mg PO Q12 [facility] Last Admin: 04/10/18 09:14 Dose: 2.5 mg Diltiazem HCl (Cardizem Cd) 240 mg PO DAILY [facility] Docusate Sodium (Colace) 100 mg PO DAILY [facility] Last Admin: 04/10/18 09:14 Dose: 100 mg Folic Acid (Folic Acid) 1 mg PO DAILY [facility] Last Admin: 04/10/18 09:15 Dose: 1 mg Furosemide (Lasix) 40 mg PO DAILY [facility] Last Admin: 04/10/18 09:15 Dose: 40 mg Imipenem/Cilastatin Sodium 500 (mg/ Sodium Chloride) 100 mls @ 100 mls/hr IVPB Q12H [facility] PRN Reason: Protocol Last Admin: 04/10/18 10:08 Dose: 100 mls/hr Ipratropium [place] (Atrovent) 0.5 mg IH RQ6 [facility] Last Admin: 04/10/18 07:39 Dose: 0.5 mg Lidocaine (Lidoderm) 1 ea TD DAILY [facility] Last Admin: 04/10/18 09:16 Dose: 1 ea Methylprednisolone (Solu-Medrol) 40 mg IVP Q8H [facility] Last Admin: 04/10/18 11:48 Dose: 40 mg Metoprolol Tartrate (Lopressor) 50 mg PO BIDBS [facility] Last Admin: 04/10/18 11:47 Dose: 50 mg Metoprolol Tartrate (Lopressor) 5 mg IVP Q6 PRN PRN Reason: HR >120 Pantoprazole Sodium (Protonix Inj) 40 mg IVP DAILY [facility] Last Admin: 04/10/18 09:17 Dose: 40 mg Senna/Docusate Sodium (Senokot S 50 Mg-8.6 Mg) 1 tab PO HS [facility] Last Admin: 04/09/18 22:27 Dose: 1 tab - Labs Labs: 04/10/18 06:32 04/10/18 06:32 PT 14.9 SECONDS (9.7-12.2) H 04/10/18 06:32 INR 1.4 04/10/18 06:32 APTT 31 SECONDS (21-34) 04/10/18 06:32 - Additional Findings Additional findings: - Constitutional Appears: Non-toxic, No Acute Distress - Head Exam Head Exam: ATRAUMATIC, NORMAL INSPECTION, NORMOCEPHALIC - Eye Exam Eye Exam: EOMI, Normal appearance - ENT Exam ENT Exam: Mucous Membranes Dry - Respiratory Exam Respiratory Exam: Rhonchi absent: NORMAL BREATHING PATTERN - Cardiovascular Exam Cardiovascular Exam: Tachycardia, Irregular Rhythm, +S1, +S2, Murmur - GI/Abdominal Exam GI & Abdominal Exam: Soft, Normal Bowel Sounds. absent: Tenderness - Extremities Exam Extremities Exam: Full ROM, Normal Inspection. absent: Pedal Edema - Neurological Exam Neurological Exam: Alert, Awake, Oriented x3 - Skin Skin Exam: Intact, Normal Color, Warm Assessment and Plan - Assessment and Plan (Free Text) Assessment: CHF exacerbation Echo (04/04/18): EF :44% mild to moderate left ventricular hypertropy. Systolic function is mildly impaired. Septal hypokinesis. Moderate valvular aortic stenosis. Mitral regurg is moderate. Moderate tricuspid regurg. Mild pulmonary hypertension. -BNP 23,000 -lasix 20mg BID -solu-medrol 40mg ivp q8h -NC and BiPAP as needed A. Fib -Eliquis 2.5mg po q12h restarted on 7/10 -Metoprolol 5mg ivp q8h -Metoprolol 50mg po BIDBS -Cardizem 240mg po daily (started on 04/10) Right sided apical PNA -continue Primaxin - ID, Dr. Loredo is consulted Discussed with Dr. Gaitan <Kenny Gaitan - Last Filed: 04/11/18 00:27> Objective - Vital Signs/Intake and Output Vital Signs (last 24 hours): Temp Pulse Resp BP Pulse Ox 97.6 F 76 22 118/61 98 04/10/18 20:00 04/10/18 23:03 04/10/18 23:03 04/10/18 23:03 04/10/18 23:03 Intake and Output: 04/10/18 04/11/18 18:59 06:59 Intake Total 700 140 Output Total 200 0 Balance 500 140 - Medications Medications: Current Medications Acetaminophen (Tylenol 325mg Tab) 650 mg PO Q6 PRN PRN Reason: Fever >100.4 F Last Admin: 04/10/18 21:35 Dose: 650 mg Apixaban (Eliquis) 2.5 mg PO Q12 [facility] Last Admin: 04/10/18 21:34 Dose: 2.5 mg Diltiazem HCl (Cardizem Cd) 240 mg PO DAILY [facility] Last Admin: 04/10/18 12:43 Dose: 240 mg Docusate Sodium (Colace) 100 mg PO DAILY [facility] Last Admin: 04/10/18 09:14 Dose: 100 mg Folic Acid (Folic Acid) 1 mg PO DAILY [facility] Last Admin: 04/10/18 09:15 Dose: 1 mg Furosemide (Lasix) 40 mg PO DAILY [facility] Last Admin: 04/10/18 09:15 Dose: 40 mg Imipenem/Cilastatin Sodium 500 (mg/ Sodium Chloride) 100 mls @ 100 mls/hr IVPB Q12H [facility] PRN Reason: Protocol Last Admin: 04/10/18 22:03 Dose: 100 mls/hr Ipratropium [place] (Atrovent) 0.5 mg IH RQ6 [facility] Last Admin: 04/10/18 19:26 Dose: Not Given Lidocaine (Lidoderm) 1 ea TD DAILY [facility] Last Admin: 04/10/18 09:16 Dose: 1 ea Methylprednisolone (Solu-Medrol) 40 mg IVP Q8H [facility] Last Admin: 04/10/18 20:41 Dose: 40 mg Metoprolol Tartrate (Lopressor) 50 mg PO BIDBS [facility] Last Admin: 04/10/18 17:21 Dose: 50 mg Metoprolol Tartrate (Lopressor) 5 mg IVP Q6 PRN PRN Reason: HR >120 Pantoprazole Sodium (Protonix Inj) 40 mg IVP DAILY [facility] Last Admin: 04/10/18 09:17 Dose: 40 mg Senna/Docusate Sodium (Senokot S 50 Mg-8.6 Mg) 1 tab PO HS [facility] Last Admin: 04/10/18 21:34 Dose: 1 tab - Labs Labs: 04/10/18 06:32 04/10/18 06:32 PT 14.9 SECONDS (9.7-12.2) H 04/10/18 06:32 INR 1.4 04/10/18 06:32 APTT 31 SECONDS (21-34) 04/10/18 06:32 Assessment and Plan - Assessment and Plan (Free Text) Assessment: Patient seen and evaluated personally by mi Plan of care d/w the medical record transcriber and as documented
[2018-04-10] MEDS: diltiaZEM 240 mg/24 Hours CD Cap PO SCH (12:43)
--- NOTE | 2018-04-10 16:28 | CP.CCUPN ---
<Jes Kumar - Last Filed: 04/10/18 16:45> CCU Subjective - Physician Review Subjective (Free Text): 04/07/18 11:00 87 year old female with past medical history of A. fib, CAD s/p LAD stents, HTN , pacemaker, s/p TAVR x 2 is admitted from rehab for acute respiratory distress 2/2 to CHF exacerbation; pt was off lasix in rehab ~2 wks. Rate control w/ cardizem, metoprolol . 04/10/18 16:23 CCU Objective - Vital Signs / Intake & Output Vital Signs (Last 4 hours): Vital Signs Pulse Resp BP Pulse Ox 04/10/18 16:17 22 04/10/18 15:03 71 25 H 119/66 96 04/10/18 15:00 81 27 H 99 04/10/18 14:04 80 23 116/58 L 100 04/10/18 14:00 84 24 99 04/10/18 13:00 104 H 18 97 04/10/18 12:42 89 22 125/62 97 04/10/18 12:24 27 H Intake and Output (Last 8hrs): Intake & Output 04/10/18 04/10/18 04/10/18 06:59 14:59 22:59 Intake Total 460 0 Output Total 50 Balance -50 460 0 Weight 163 lb 12.8 oz Intake: Intake, IV Amount 100 Left Wrist 100 Oral 360 0 Output: Urine 50 Urine, Voided 50 Other: # Voids Urine, Voided 1 0 # Bowel Movements 0 0 - Physical Exam Head: Positive for: Atraumatic, Normocephalic Extroacular Muscles: Positive for: EOMI Conjunctiva: Positive for: Normal Mouth: Positive for: Dry Respiratory/Chest: Positive for: Wheezes, Decreased Breath Sounds, Rhonchi, Tachypneic. Negative for: Respiratory Distress, Accessory Muscle Use Cardiovascular: Positive for: Normal S1, S2, Tachycardic. Negative for: Murmurs Abdomen: Positive for: Normal Bowel Sounds. Negative for: Tenderness, Distention, Peritoneal Signs Upper Extremity: Negative for: Cyanosis Lower Extremity: Positive for: Edema Neurological: Positive for: GCS=15, Speech Normal Skin: Positive for: Warm, Dry, Normal Color. Negative for: Rashes Psychiatric: Positive for: Alert, Oriented x 3, Normal Insight, Normal Concentration - Medications Active Medications: Active Medications Generic Name Dose Route Start Last Admin Trade Name Freq PRN Reason Stop Dose Admin Acetaminophen 650 mg 04/03/18 23:00 04/10/18 11:47 Tylenol 325mg Tab PO 650 mg Q6 PRN Administration Fever >100.4 F Apixaban 2.5 mg 04/07/18 22:00 04/10/18 09:14 Eliquis PO 2.5 mg Q12 KIMBERLEE Administration Diltiazem HCl 240 mg 04/10/18 10:00 04/10/18 12:43 Cardizem Cd PO 240 mg DAILY KIMBERLEE Administration Docusate Sodium 100 mg 04/05/18 10:15 04/10/18 09:14 Colace PO 100 mg DAILY KIMBERLEE Administration Folic Acid 1 mg 04/07/18 16:45 04/10/18 09:15 Folic Acid PO 1 mg DAILY KIMBERLEE Administration Furosemide 40 mg 04/09/18 10:00 04/10/18 09:15 Lasix PO 40 mg DAILY KIMBERLEE Administration Imipenem/Cilastatin Sodium 500 100 mls @ 100 mls/hr 04/07/18 23:00 04/10/18 10:08 mg/ Sodium Chloride IVPB 100 mls/hr Q12H KIMBERLEE Administration Protocol Ipratropium [place] 0.5 mg 04/04/18 14:00 04/10/18 14:46 Atrovent IH 0.5 mg RQ6 KIMBERLEE Administration Lidocaine 1 ea 04/05/18 10:15 04/10/18 09:16 Lidoderm TD 1 ea DAILY KIMBERLEE Administration Methylprednisolone 40 mg 04/07/18 20:00 04/10/18 11:48 Solu-Medrol IVP 40 mg Q8H KIMBERLEE Administration Metoprolol Tartrate 50 mg 04/10/18 10:30 04/10/18 11:47 Lopressor PO 50 mg BIDBS KIMBERLEE Administration Metoprolol Tartrate 5 mg 04/10/18 10:30 Lopressor IVP Q6 PRN HR >120 Pantoprazole Sodium 40 mg 04/08/18 10:00 04/10/18 09:17 Protonix Inj IVP 40 mg DAILY KIMBERLEE Administration Senna/Docusate Sodium 1 tab 04/05/18 22:00 04/09/18 22:27 Senokot S 50 Mg-8.6 Mg PO 1 tab HS KIMBERLEE Administration - Patient Studies Lab Studies: Lab Studies 04/10/18 04/10/18 04/10/18 Range/Units 06:32 06:32 06:32 WBC 5.3 (4.8-10.8) K/uL RBC 3.74 L (3.80-5.20) Mil/uL Hgb 10.0 L (11.0-16.0) g/dL Hct 30.5 L (34.0-47.0) % MCV 81.7 (81.0-99.0) fL MCH 26.9 L (27.0-31.0) pg MCHC 32.9 L (33.0-37.0) g/dL RDW 18.6 H (11.5-14.5) % Plt Count 91 L (130-400) K/uL MPV 9.2 (7.2-11.7) fL Neut % (Auto) 82.9 H (50.0-75.0) % Lymph % (Auto) 9.7 L (20.0-40.0) % Mcleod % (Auto) 7.2 (0.0-10.0) % Eos % (Auto) 0.0 (0.0-4.0) % Baso % (Auto) 0.2 (0.0-2.0) % Neut # (Auto) 4.4 (1.8-7.0) K/uL Lymph # (Auto) 0.5 L (1.0-4.3) K/uL Mcleod # (Auto) 0.4 (0.0-0.8) K/uL Eos # (Auto) 0.0 (0.0-0.7) K/uL Baso # (Auto) 0.0 (0.0-0.2) K/uL Neutrophils % (Manual) 81 H (50-75) % Band Neutrophils % 2 (0-2) % Lymphocytes % (Manual) 9 L (20-40) % Monocytes % (Manual) 8 (0-10) % Platelet Estimate Decreased L (NORMAL) Hypochromasia (manual) Slight Anisocytosis (manual) Moderate Ovalocytes Slight PT 14.9 H (9.7-12.2) SECONDS INR 1.4 APTT 31 (21-34) SECONDS Sodium 136 (132-148) mmol/L Potassium 4.1 (3.6-5.2) mmol/L Chloride 98 (98-107) mmol/L Carbon Dioxide 29 (22-30) mmol/L Anion Gap 13 (10-20) BUN 57 H (7-17) mg/dL Creatinine 1.3 H (0.7-1.2) mg/dL Est GFR ( Amer) 47 Est GFR (Non-Af Amer) 39 Random Glucose 163 H (65-105) mg/dL Calcium 9.0 (8.6-10.4) mg/dl Phosphorus 4.3 (2.5-4.5) mg/dL Magnesium 2.1 (1.6-2.3) mg/dL Total Bilirubin 1.2 (0.2-1.3) mg/dL AST 50 H D (14-36) U/L ALT 50 (9-52) U/L Alkaline Phosphatase 251 H (38-126) U/L Total Protein 5.3 L (6.3-8.3) g/dL Albumin 2.7 L (3.5-5.0) g/dL Globulin 2.6 (2.2-3.9) gm/dL Albumin/Globulin Ratio 1.0 (1.0-2.1) Laboratory Results - last 24 hr 04/10/18 04/10/18 04/10/18 06:32 06:32 06:32 WBC 5.3 RBC 3.74 L Hgb 10.0 L Hct 30.5 L MCV 81.7 MCH 26.9 L MCHC 32.9 L RDW 18.6 H Plt Count 91 L MPV 9.2 Neut % (Auto) 82.9 H Lymph % (Auto) 9.7 L Mcleod % (Auto) 7.2 Eos % (Auto) 0.0 Baso % (Auto) 0.2 Neut # (Auto) 4.4 Lymph # (Auto) 0.5 L Mcleod # (Auto) 0.4 Eos # (Auto) 0.0 Baso # (Auto) 0.0 Neutrophils % (Manual) 81 H Band Neutrophils % 2 Lymphocytes % (Manual) 9 L Monocytes % (Manual) 8 Platelet Estimate Decreased L Hypochromasia (manual) Slight Anisocytosis (manual) Moderate Ovalocytes Slight PT 14.9 H INR 1.4 APTT 31 Sodium 136 Potassium 4.1 Chloride 98 Carbon Dioxide 29 Anion Gap 13 BUN 57 H Creatinine 1.3 H Est GFR ( Amer) 47 Est GFR (Non-Af Amer) 39 Random Glucose 163 H Calcium 9.0 Phosphorus 4.3 Magnesium 2.1 Total Bilirubin 1.2 AST 50 H D ALT 50 Alkaline Phosphatase 251 H Total Protein 5.3 L Albumin 2.7 L Globulin 2.6 Albumin/Globulin Ratio 1.0 Review of Systems - Constitutional Constitutional: absent: Chills - EENT Nose/Mouth/Throat: absent: Nasal Congestion - Cardiovascular Cardiovascular: Edema (she reports improvement). absent: Chest Pain, Dyspnea - Respiratory Respiratory: Cough Critical Care Progress Note - Nutrition Nutrition: Nutrition Category Date Time Status Heart Healthy Diet [DIET] Diets 04/08/18 Dinner Active Assessment/Plan - Assessment and Plan (Free Text) Assessment: 87 yo F admitted with hypoxemic respiratory failure 2/2 CHF exacerbation vs. PNA admitted to ICU on 04/03/18 for respiratory distress 1. CHF exacerbation- EF 04/04~44% -pBNP 23,000 on admission -lasix 40 mg -cardio consult Dr. Gaitan - CXR slightly improved today 2. A. Fib - metoprolol 5 mg IV q8 - Cardizem 240mg PO - Pt restarted on Eliquis at 2.5 mg BID 3. Hypoxemic respiratory failure - Improving - ipratropium q6 4. Right sided apical PNA -immipenem 500mg q12 - ID, Dr. Loredo is consulted 5. PUD - endoscopy done on 03/19/18 showed non-bleeding esophageal ulcer, esophagitis, and non-bleeding duodenal ulcer with no stigmata of bleeding - Continue protonix 40 IVP qd - will advance diet as tolerated 6. Constipation - Senokot, colace 7. UTI - urine culture positive for coagulase negative staph - Continue Abx 8. Pancytopenia - Improving - Pt transfused PRBC on admission - Hgb stable - Continue iron supplements - negative blood cultures - Bone marrow biopsy done on 03/24/18 showed hypercellular marrow with maturing trilineage hematopoeisis and a decreased M:E ratio. Stoarge iron present. No evidence of overt myeodysplasia, plasma cell myeloma or lymphoma. Report in chart 9. Sepsis likely 2/2 UTI vs. PNA - Afebrile overnight. - Urine culture positive on admission. Repeat cultures positive for yeast - immipenem 500mg q12 Ppx - SCDs - Protonix 40mg - Eliquis - Date & Time Date: 04/10/18 Time: 16:45 <Cristiano Pittman Eliane - Last Filed: 04/10/18 22:01> CCU Objective - Vital Signs / Intake & Output Vital Signs (Last 4 hours): Vital Signs Pulse Resp BP Pulse Ox 04/10/18 21:43 20 04/10/18 19:27 16 04/10/18 19:03 75 20 102/51 L 97 04/10/18 19:00 79 19 98 04/10/18 18:06 78 22 112/54 L 98 04/10/18 18:01 76 96 Intake and Output (Last 8hrs): Intake & Output 04/10/18 04/10/18 04/10/18 06:59 14:59 22:59 Intake Total 460 240 Output Total 50 200 Balance -50 460 40 Weight 163 lb 12.8 oz Intake: Intake, IV Amount 100 Left Wrist 100 Oral 360 240 Output: Urine 50 200 Urine, Voided 50 200 Other: # Voids Urine, Voided 1 0 1 # Bowel Movements 0 0 - Medications Active Medications: Active Medications Generic Name Dose Route Start Last Admin Trade Name Freq PRN Reason Stop Dose Admin Acetaminophen 650 mg 04/03/18 23:00 04/10/18 21:35 Tylenol 325mg Tab PO 650 mg Q6 PRN Administration Fever >100.4 F Apixaban 2.5 mg 04/07/18 22:00 04/10/18 21:34 Eliquis PO 2.5 mg Q12 KIMBERLEE Administration Diltiazem HCl 240 mg 04/10/18 10:00 04/10/18 12:43 Cardizem Cd PO 240 mg DAILY KIMBERLEE Administration Docusate Sodium 100 mg 04/05/18 10:15 04/10/18 09:14 Colace PO 100 mg DAILY KIMBERLEE Administration Folic Acid 1 mg 04/07/18 16:45 04/10/18 09:15 Folic Acid PO 1 mg DAILY KIMBERLEE Administration Furosemide 40 mg 04/09/18 10:00 04/10/18 09:15 Lasix PO 40 mg DAILY KIMBERLEE Administration Imipenem/Cilastatin Sodium 500 100 mls @ 100 mls/hr 04/07/18 23:00 04/10/18 10:08 mg/ Sodium Chloride IVPB 100 mls/hr Q12H KIMBERLEE Administration Protocol Ipratropium [place] 0.5 mg 04/04/18 14:00 04/10/18 19:26 Atrovent IH Not Given RQ6 KIMBERLEE Lidocaine 1 ea 04/05/18 10:15 04/10/18 09:16 Lidoderm TD 1 ea DAILY KIMBERLEE Administration Methylprednisolone 40 mg 04/07/18 20:00 04/10/18 20:41 Solu-Medrol IVP 40 mg Q8H KIMBERLEE Administration Metoprolol Tartrate 50 mg 04/10/18 10:30 04/10/18 17:21 Lopressor PO 50 mg BIDBS KIMBERLEE Administration Metoprolol Tartrate 5 mg 04/10/18 10:30 Lopressor IVP Q6 PRN HR >120 Pantoprazole Sodium 40 mg 04/08/18 10:00 04/10/18 09:17 Protonix Inj IVP 40 mg DAILY KIMBERLEE Administration Senna/Docusate Sodium 1 tab 04/05/18 22:00 04/10/18 21:34 Senokot S 50 Mg-8.6 Mg PO 1 tab HS KIMBERLEE Administration - Patient Studies Lab Studies: Lab Studies 04/10/18 04/10/18 04/10/18 Range/Units 06:32 06:32 06:32 WBC 5.3 (4.8-10.8) K/uL RBC 3.74 L (3.80-5.20) Mil/uL Hgb 10.0 L (11.0-16.0) g/dL Hct 30.5 L (34.0-47.0) % MCV 81.7 (81.0-99.0) fL MCH 26.9 L (27.0-31.0) pg MCHC 32.9 L (33.0-37.0) g/dL RDW 18.6 H (11.5-14.5) % Plt Count 91 L (130-400) K/uL MPV 9.2 (7.2-11.7) fL Neut % (Auto) 82.9 H (50.0-75.0) % Lymph % (Auto) 9.7 L (20.0-40.0) % Mcleod % (Auto) 7.2 (0.0-10.0) % Eos % (Auto) 0.0 (0.0-4.0) % Baso % (Auto) 0.2 (0.0-2.0) % Neut # (Auto) 4.4 (1.8-7.0) K/uL Lymph # (Auto) 0.5 L (1.0-4.3) K/uL Mcleod # (Auto) 0.4 (0.0-0.8) K/uL Eos # (Auto) 0.0 (0.0-0.7) K/uL Baso # (Auto) 0.0 (0.0-0.2) K/uL Neutrophils % (Manual) 81 H (50-75) % Band Neutrophils % 2 (0-2) % Lymphocytes % (Manual) 9 L (20-40) % Monocytes % (Manual) 8 (0-10) % Platelet Estimate Decreased L (NORMAL) Hypochromasia (manual) Slight Anisocytosis (manual) Moderate Ovalocytes Slight PT 14.9 H (9.7-12.2) SECONDS INR 1.4 APTT 31 (21-34) SECONDS Sodium 136 (132-148) mmol/L Potassium 4.1 (3.6-5.2) mmol/L Chloride 98 (98-107) mmol/L Carbon Dioxide 29 (22-30) mmol/L Anion Gap 13 (10-20) BUN 57 H (7-17) mg/dL Creatinine 1.3 H (0.7-1.2) mg/dL Est GFR ( Amer) 47 Est GFR (Non-Af Amer) 39 Random Glucose 163 H (65-105) mg/dL Calcium 9.0 (8.6-10.4) mg/dl Phosphorus 4.3 (2.5-4.5) mg/dL Magnesium 2.1 (1.6-2.3) mg/dL Total Bilirubin 1.2 (0.2-1.3) mg/dL AST 50 H D (14-36) U/L ALT 50 (9-52) U/L Alkaline Phosphatase 251 H (38-126) U/L Total Protein 5.3 L (6.3-8.3) g/dL Albumin 2.7 L (3.5-5.0) g/dL Globulin 2.6 (2.2-3.9) gm/dL Albumin/Globulin Ratio 1.0 (1.0-2.1) Laboratory Results - last 24 hr 04/10/18 04/10/18 04/10/18 06:32 06:32 06:32 WBC 5.3 RBC 3.74 L Hgb 10.0 L Hct 30.5 L MCV 81.7 MCH 26.9 L MCHC 32.9 L RDW 18.6 H Plt Count 91 L MPV 9.2 Neut % (Auto) 82.9 H Lymph % (Auto) 9.7 L Mcleod % (Auto) 7.2 Eos % (Auto) 0.0 Baso % (Auto) 0.2 Neut # (Auto) 4.4 Lymph # (Auto) 0.5 L Mcleod # (Auto) 0.4 Eos # (Auto) 0.0 Baso # (Auto) 0.0 Neutrophils % (Manual) 81 H Band Neutrophils % 2 Lymphocytes % (Manual) 9 L Monocytes % (Manual) 8 Platelet Estimate Decreased L Hypochromasia (manual) Slight Anisocytosis (manual) Moderate Ovalocytes Slight PT 14.9 H INR 1.4 APTT 31 Sodium 136 Potassium 4.1 Chloride 98 Carbon Dioxide 29 Anion Gap 13 BUN 57 H Creatinine 1.3 H Est GFR ( Amer) 47 Est GFR (Non-Af Amer) 39 Random Glucose 163 H Calcium 9.0 Phosphorus 4.3 Magnesium 2.1 Total Bilirubin 1.2 AST 50 H D ALT 50 Alkaline Phosphatase 251 H Total Protein 5.3 L Albumin 2.7 L Globulin 2.6 Albumin/Globulin Ratio 1.0 Critical Care Progress Note - Nutrition Nutrition: Nutrition Category Date Time Status Heart Healthy Diet [DIET] Diets 04/08/18 Dinner Active Assessment/Plan - Assessment and Plan (Free Text) Assessment: 87 year old female with PMHx of Atrial Fibrillation, CAD s/p LAD stent, with Multi-vessel Disease, HTN, Pacemaker, and s/p TAVR x2 presents to the ED with SOB and lower leg swelling -SOB/Pulmonary congestion:much improved, continue lasix, bi-pap PRN, lower legs improved -h/o Upper Gi bleed: monitor serial cbc, FOB(+), -Atrial Fibrillation restart: continue oral cardizem + lopressor, continue as per cardiology -CAD/A-fib/h/o TAVR: will benefit from Antiplatelets -sepsis source likely urine:continue abx -h/o OLIVIA - resolved -PUD ppx: PPI Q12 - SCDs tolerating oral diet Patient much improved today, able to walk, continue pt/ot
[2018-04-10] MEDS: Docusate-Senna 50 mg-8.6 mg Tab PO SCH (21:34)
[2018-04-11] MEDS: Ipratropium 0.02% Inhal Soln (0.5 mg/2.5 ml) UD IH SCH ×3 (02:41→14:09)
[2018-04-11] MEDS: MethylPREDNISolone 40 mg Vial IVP SCH ×3 (05:00→20:06)
[2018-04-11 06:15] LABS: BASO % 0.1 % (0.0-2.0); HEMOGLOBIN 9.7 g/dL (11.0-16.0); LYMPH # 0.5 K/uL (1.0-4.3); LYMPH % 8.9 % (20.0-40.0); MEAN CELL VOLUME 81.9 fL (81.0-99.0); MEAN CORPUSCULAR HEMOGLOBIN 26.9 pg (27.0-31.0); MEAN CORPUSCULAR HGB CONC 32.9 g/dL (33.0-37.0); MEAN PLATELET VOLUME 9.3 fL (7.2-11.7); MONO # 0.4 K/uL (0.0-0.8); MONO % 7.7 % (0.0-10.0); NEUT # 4.5 K/uL (1.8-7.0); NEUT % 83.3 % (50.0-75.0); NRBC % 0.1 % (0.0-2.0); PLATELET COUNT 98 K/uL (130-400); RBC 3.59 Mil/uL (3.80-5.20); RED CELL DISTRIBUTION WIDTH 18.7 % (11.5-14.5); WHITE BLOOD COUNT 5.3 K/uL (4.8-10.8)
[2018-04-11 06:36] LABS: ALBUMIN 2.7 g/dL (3.5-5.0); CALCIUM 8.8 mg/dl (8.6-10.4)
[2018-04-11] MEDS: Levothyroxine 25 MCG TAB PO SCH (06:47)
[2018-04-11 08:59] LABS: ANISOCYTOSIS MODERATE; HYPOCHROMIC SLIGHT; LYMPHOCYTE 8 % (20-40); MONOCYTE 9 % (0-10); NEUTROPHIL 83 % (50-75); PLATELET ESTIMATE DECREASED (NORMAL); POLYCHROMIC SLIGHT; TOTAL CELLS COUNTED 100
[2018-04-11 09:00] LABS: LARGE PLATELETS PRESENT; OVALOCYTES SLIGHT; POIKILOCYTOSIS SLIGHT
[2018-04-11] MEDS: diltiaZEM 240 mg/24 Hours CD Cap PO SCH (09:39)
[2018-04-11] MEDS: Lidocaine 5% Patch TD SCH (09:39)
--- NOTE | 2018-04-11 13:52 | CP.PCM.PN ---
Subjective - Date & Time of Evaluation Date of Evaluation: 04/11/18 Time of Evaluation: 13:49 - Subjective Subjective: INFECTIOUS DISEASE ICU PROGRESS NOTES LUCITA WETZEL MD, FACP 04/10- ICU 14A CHART REVIEWED PT EXAMINED CASE DISCUSSED 87 year old female with past medical history of A. fib, CAD s/p LAD stents, HTN , pacemaker, s/p TAVR x 2 is admitted from rehab for acute respiratory distress 2/2 to CHF exacerbation; pt was off lasix in rehab ~2 wks. Rate control w/ cardizem, metoprolol . 04/10/18 16:23 CCU Objective - Vital Signs / Intake & Output Vital Signs (Last 4 hours): Vital Signs Pulse Resp BP Pulse Ox 04/10/18 16:17 22 04/10/18 15:03 71 25 H 119/66 96 04/10/18 15:00 81 27 H 99 04/10/18 14:04 80 23 116/58 L 100 04/10/18 14:00 84 24 99 04/10/18 13:00 104 H 18 97 04/10/18 12:42 89 22 125/62 97 04/10/18 12:24 27 H Intake and Output (Last 8hrs): Intake & Output 04/10/18 04/10/18 04/10/18 06:59 14:59 22:59 Intake Total 460 0 Output Total 50 Balance -50 460 0 Weight 163 lb 12.8 oz Intake: Intake, IV Amount 100 Left Wrist 100 Oral 360 0 Output: Urine 50 Urine, Voided 50 Other: # Voids Urine, Voided 1 0 # Bowel Movements 0 0 - Physical Exam Head: Positive for: Atraumatic, Normocephalic Extroacular Muscles: Positive for: EOMI Conjunctiva: Positive for: Normal Mouth: Positive for: Dry Respiratory/Chest: Positive for: Wheezes, Decreased Breath Sounds, Rhonchi, Tachypneic. Negative for: Respiratory Distress, Accessory Muscle Use Cardiovascular: Positive for: Normal S1, S2, Tachycardic. Negative for: Murmurs Abdomen: Positive for: Normal Bowel Sounds. Negative for: Tenderness, Distention, Peritoneal Signs Upper Extremity: Negative for: Cyanosis Lower Extremity: Positive for: Edema Neurological: Positive for: GCS=15, Speech Normal Skin: Positive for: Warm, Dry, Normal Color. Negative for: Rashes Psychiatric: Positive for: Alert, Oriented x 3, Normal Insight, Normal Concentration Objective - Vital Signs/Intake and Output Vital Signs (last 24 hours): Temp Pulse Resp BP Pulse Ox 97.8 F 72 22 126/65 100 04/11/18 08:00 04/11/18 12:03 04/11/18 12:03 04/11/18 12:03 04/11/18 12:03 Intake and Output: 04/11/18 04/11/18 06:59 18:59 Intake Total 140 610 Output Total 350 0 Balance -210 610 - Medications Medications: Current Medications Acetaminophen (Tylenol 325mg Tab) 650 mg PO Q6 PRN PRN Reason: Fever >100.4 F Last Admin: 04/10/18 21:35 Dose: 650 mg Apixaban (Eliquis) 2.5 mg PO Q12 KIMBERLEE Last Admin: 04/11/18 09:40 Dose: 2.5 mg Diltiazem HCl (Cardizem Cd) 240 mg PO DAILY KIMBERLEE Last Admin: 04/11/18 09:39 Dose: 240 mg Docusate Sodium (Colace) 100 mg PO DAILY KIMBERLEE Last Admin: 04/11/18 09:40 Dose: 100 mg Folic Acid (Folic Acid) 1 mg PO DAILY KIMBERLEE Last Admin: 04/11/18 09:39 Dose: 1 mg Furosemide (Lasix) 40 mg PO DAILY KIMBERLEE Last Admin: 04/11/18 09:39 Dose: 40 mg Imipenem/Cilastatin Sodium 500 (mg/ Sodium Chloride) 100 mls @ 100 mls/hr IVPB Q12H KIMBERLEE PRN Reason: Protocol Last Admin: 04/11/18 11:08 Dose: 100 mls/hr Ipratropium [place] (Atrovent) 0.5 mg IH RQ6 [facility] Last Admin: 04/11/18 07:20 Dose: 0.5 mg Levothyroxine Sodium (Synthroid) 25 mcg PO DAILY@0630 KIMBERLEE Last Admin: 04/11/18 06:47 Dose: 25 mcg Lidocaine (Lidoderm) 1 ea TD DAILY [facility] Last Admin: 04/11/18 09:39 Dose: 1 ea Methylprednisolone (Solu-Medrol) 40 mg IVP Q8H KIMBERLEE Last Admin: 04/11/18 11:11 Dose: 40 mg Metoprolol Tartrate (Lopressor) 50 mg PO BIDBS KIMBERLEE Last Admin: 04/11/18 08:05 Dose: 50 mg Metoprolol Tartrate (Lopressor) 5 mg IVP Q6 PRN PRN Reason: HR >120 Pantoprazole Sodium (Protonix Ec Tab) 40 mg PO DAILY [facility] Senna/Docusate Sodium (Senokot S 50 Mg-8.6 Mg) 1 tab PO HS [facility] Last Admin: 04/10/18 21:34 Dose: 1 tab - Labs Labs: 04/11/18 06:06 04/11/18 06:07 PT 14.9 SECONDS (9.7-12.2) H 04/10/18 06:32 INR 1.4 04/10/18 06:32 APTT 31 SECONDS (21-34) 04/10/18 06:32 Assessment and Plan (1) Pancytopenia Status: Acute (2) HAP (hospital-acquired pneumonia) Assessment & Plan: CXR SHOWS DAILY IMPROVEMENT TO D/C IV PRIMAXIN AFTER TOMORROWS RESULTS QUESTION OF BEING TIRED, DISCUSSED WITH THE PTS YOUNGER SON. Status: Suspected (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
[2018-04-11] MEDS: Docusate-Senna 50 mg-8.6 mg Tab PO SCH (21:55)
--- NOTE | 2018-04-11 22:19 | CP.CCUPN ---
CCU Subjective - Physician Review Events Since Last Encounter (Free Text): 04/11/18 22:19 Today patient is able to sit up in the chair. Comfortably eating better. On nasal cannula Clinical examination is unremarkable But the patient is having increasing weakness, tiredness, fatigability. Labs reviewed Spoke to the housekeeping assistant. Also spoke to the family and the infectious disease Patient is currently stable. Physical therapy needed. If stable transfer to telemetry tomorrow. CCU Objective - Vital Signs / Intake & Output Vital Signs (Last 4 hours): Vital Signs Temp Pulse Resp BP Pulse Ox 04/11/18 20:03 79 23 124/68 100 04/11/18 20:00 97.3 F L 04/11/18 19:03 73 16 116/63 100 Intake and Output (Last 8hrs): Intake & Output 04/11/18 04/11/18 04/11/18 06:59 14:59 22:59 Intake Total 0 850 240 Output Total 350 900 400 Balance -350 -50 -160 Weight 164 lb Intake: Intake, IV Amount 100 Right Hand 100 Oral 0 750 240 Output: Urine 350 900 400 Urine, Voided 350 900 400 Stool 0 0 Emesis 0 0 Other: # Voids Urine, Voided 1 - Physical Exam Head: Positive for: Atraumatic, Normocephalic Extroacular Muscles: Positive for: EOMI Conjunctiva: Positive for: Normal Mouth: Positive for: Dry Respiratory/Chest: Positive for: Wheezes, Decreased Breath Sounds, Rhonchi, Tachypneic. Negative for: Respiratory Distress, Accessory Muscle Use Cardiovascular: Positive for: Normal S1, S2, Tachycardic. Negative for: Murmurs Abdomen: Positive for: Normal Bowel Sounds. Negative for: Tenderness, Distention, Peritoneal Signs Upper Extremity: Negative for: Cyanosis Lower Extremity: Positive for: Edema Neurological: Positive for: GCS=15, Speech Normal Skin: Positive for: Warm, Dry, Normal Color. Negative for: Rashes Psychiatric: Positive for: Alert, Oriented x 3, Normal Insight, Normal Concentration - Medications Active Medications: Active Medications Generic Name Dose Route Start Last Admin Trade Name Freq PRN Reason Stop Dose Admin Acetaminophen 650 mg 04/03/18 23:00 04/11/18 14:23 Tylenol 325mg Tab PO 650 mg Q6 PRN Administration Fever >100.4 F Apixaban 2.5 mg 04/07/18 22:00 04/11/18 21:55 Eliquis PO 2.5 mg Q12 [facility] Administration Diltiazem HCl 240 mg 04/10/18 10:00 04/11/18 09:39 Cardizem Cd PO 240 mg DAILY [facility] Administration Docusate Sodium 100 mg 04/05/18 10:15 04/11/18 09:40 Colace PO 100 mg DAILY [facility] Administration Folic Acid 1 mg 04/07/18 16:45 04/11/18 09:39 Folic Acid PO 1 mg DAILY [facility] Administration Furosemide 40 mg 04/09/18 10:00 04/11/18 09:39 Lasix PO 40 mg DAILY [facility] Administration Imipenem/Cilastatin Sodium 500 100 mls @ 100 mls/hr 04/07/18 23:00 04/11/18 22:10 mg/ Sodium Chloride IVPB 100 mls/hr Q12H [facility] Administration Protocol Ipratropium [place] 0.5 mg 04/04/18 14:00 04/11/18 14:09 Atrovent IH 0.5 mg RQ6 [facility] Administration Levothyroxine Sodium 25 mcg 04/11/18 06:30 04/11/18 06:47 Synthroid PO 25 mcg DAILY@0630 [facility] Administration Lidocaine 1 ea 04/05/18 10:15 04/11/18 09:39 Lidoderm TD 1 ea DAILY [facility] Administration Methylprednisolone 40 mg 04/07/18 20:00 04/11/18 20:06 Solu-Medrol IVP 40 mg Q8H [facility] Administration Metoprolol Tartrate 50 mg 04/10/18 10:30 04/11/18 16:17 Lopressor PO 50 mg BIDBS [facility] Administration Metoprolol Tartrate 5 mg 04/10/18 10:30 Lopressor IVP Q6 PRN HR >120 Pantoprazole Sodium 40 mg 04/12/18 10:00 Protonix Ec Tab PO DAILY [facility] Senna/Docusate Sodium 1 tab 04/05/18 22:00 04/11/18 21:55 Senokot S 50 Mg-8.6 Mg PO 1 tab HS [facility] Administration - Patient Studies Lab Studies: Lab Studies 04/11/18 04/11/18 Range/Units 06:07 06:06 WBC 5.3 (4.8-10.8) K/uL RBC 3.59 L (3.80-5.20) Mil/uL Hgb 9.7 L (11.0-16.0) g/dL Hct 29.4 L (34.0-47.0) % MCV 81.9 (81.0-99.0) fL MCH 26.9 L (27.0-31.0) pg MCHC 32.9 L (33.0-37.0) g/dL RDW 18.7 H (11.5-14.5) % Plt Count 98 L (130-400) K/uL MPV 9.3 (7.2-11.7) fL Neut % (Auto) 83.3 H (50.0-75.0) % Lymph % (Auto) 8.9 L (20.0-40.0) % [place] % (Auto) 7.7 (0.0-10.0) % Eos % (Auto) 0.0 (0.0-4.0) % Baso % (Auto) 0.1 (0.0-2.0) % Neut # (Auto) 4.5 (1.8-7.0) K/uL Lymph # (Auto) 0.5 L (1.0-4.3) K/uL [place] # (Auto) 0.4 (0.0-0.8) K/uL Eos # (Auto) 0.0 (0.0-0.7) K/uL Baso # (Auto) 0.0 (0.0-0.2) K/uL Neutrophils % (Manual) 83 H (50-75) % Lymphocytes % (Manual) 8 L (20-40) % Monocytes % (Manual) 9 (0-10) % Platelet Estimate Decreased L (NORMAL) Large Platelets Present Polychromasia Slight Hypochromasia (manual) Slight Poikilocytosis (manual Slight Basophilic Stippling Slight Anisocytosis (manual) Moderate Ovalocytes Slight Sodium 137 (132-148) mmol/L Potassium 4.3 (3.6-5.2) mmol/L Chloride 98 (98-107) mmol/L Carbon Dioxide 30 (22-30) mmol/L Anion Gap 13 (10-20) BUN 56 H (7-17) mg/dL Creatinine 1.1 (0.7-1.2) mg/dL Est GFR ( Amer) 57 Est GFR (Non-Af Amer) 47 Random Glucose 159 H (65-105) mg/dL Calcium 8.8 (8.6-10.4) mg/dl Phosphorus 3.7 (2.5-4.5) mg/dL Magnesium 2.2 (1.6-2.3) mg/dL Total Bilirubin 1.0 (0.2-1.3) mg/dL AST 51 H (14-36) U/L ALT 56 H (9-52) U/L Alkaline Phosphatase 254 H (38-126) U/L Total Protein 5.4 L (6.3-8.3) g/dL Albumin 2.7 L (3.5-5.0) g/dL Globulin 2.7 (2.2-3.9) gm/dL Albumin/Globulin Ratio 1.0 (1.0-2.1) Laboratory Results - last 24 hr 04/11/18 04/11/18 06:06 06:07 WBC 5.3 RBC 3.59 L Hgb 9.7 L Hct 29.4 L MCV 81.9 MCH 26.9 L MCHC 32.9 L RDW 18.7 H Plt Count 98 L MPV 9.3 Neut % (Auto) 83.3 H Lymph % (Auto) 8.9 L [place] % (Auto) 7.7 Eos % (Auto) 0.0 Baso % (Auto) 0.1 Neut # (Auto) 4.5 Lymph # (Auto) 0.5 L [place] # (Auto) 0.4 Eos # (Auto) 0.0 Baso # (Auto) 0.0 Neutrophils % (Manual) 83 H Lymphocytes % (Manual) 8 L Monocytes % (Manual) 9 Platelet Estimate Decreased L Large Platelets Present Polychromasia Slight Hypochromasia (manual) Slight Poikilocytosis (manual Slight Basophilic Stippling Slight Anisocytosis (manual) Moderate Ovalocytes Slight Sodium 137 Potassium 4.3 Chloride 98 Carbon Dioxide 30 Anion Gap 13 BUN 56 H Creatinine 1.1 Est GFR ( Amer) 57 Est GFR (Non-Af Amer) 47 Random Glucose 159 H Calcium 8.8 Phosphorus 3.7 Magnesium 2.2 Total Bilirubin 1.0 AST 51 H ALT 56 H Alkaline Phosphatase 254 H Total Protein 5.4 L Albumin 2.7 L Globulin 2.7 Albumin/Globulin Ratio 1.0 Critical Care Progress Note - Nutrition Nutrition: Nutrition Category Date Time Status Heart Healthy Diet [DIET] Diets 04/08/18 Dinner Active
[2018-04-12] MEDS: MethylPREDNISolone 40 mg Vial IVP SCH ×3 (05:00→19:30)
[2018-04-12] MEDS: Levothyroxine 25 MCG TAB PO SCH (05:45)
[2018-04-12 06:01] LABS: BASO % 0.3 % (0.0-2.0); HEMOGLOBIN 9.7 g/dL (11.0-16.0); LYMPH # 0.4 K/uL (1.0-4.3); LYMPH % 7.6 % (20.0-40.0); MEAN CELL VOLUME 82.6 fL (81.0-99.0); MEAN CORPUSCULAR HEMOGLOBIN 27.2 pg (27.0-31.0); MEAN CORPUSCULAR HGB CONC 32.9 g/dL (33.0-37.0); MONO # 0.3 K/uL (0.0-0.8); MONO % 6.6 % (0.0-10.0); NEUT # 4.5 K/uL (1.8-7.0); NEUT % 85.5 % (50.0-75.0); PLATELET COUNT 94 K/uL (130-400); RBC 3.57 Mil/uL (3.80-5.20); RED CELL DISTRIBUTION WIDTH 18.9 % (11.5-14.5); WHITE BLOOD COUNT 5.2 K/uL (4.8-10.8)
[2018-04-12 06:21] LABS: ALBUMIN 2.5 g/dL (3.5-5.0); ALT/SGPT 54 U/L (9-52); AST/SGOT 40 U/L (14-36); BLOOD UREA NITROGEN 50 mg/dL (7-17); CALCIUM 8.5 mg/dl (8.6-10.4); GFR AFRICAN-AMERICAN > 60; GFR NON-AFRICAN AMERICAN 59
--- NOTE | 2018-04-12 08:16 | CP.PCM.PN ---
Subjective - Date & Time of Evaluation Date of Evaluation: 04/11/18 Time of Evaluation: 12:10 - Subjective Subjective: Patient seen and examined sitting up in a chair. Patient is on nasal cannula and off BiPAP. Patient says her breathing is improving. Patient denies any chest pain, abdominal pain, nausea, vomiting, constipation, or diarrhea. As per family, patient is weak today Physical Examination - Additional Findings Additional findings: - Constitutional Appears: Non-toxic, No Acute Distress - Head Exam Head Exam: ATRAUMATIC, NORMAL INSPECTION, NORMOCEPHALIC - Eye Exam Eye Exam: EOMI, Normal appearance - ENT Exam ENT Exam: Mucous Membranes Dry - Respiratory Exam Respiratory Exam: Rhonchi absent: NORMAL BREATHING PATTERN - Cardiovascular Exam Cardiovascular Exam: Tachycardia, Irregular Rhythm, +S1, +S2, Murmur - GI/Abdominal Exam GI & Abdominal Exam: Soft, Normal Bowel Sounds. absent: Tenderness - Extremities Exam Extremities Exam: Full ROM, Normal Inspection. absent: Pedal Edema - Neurological Exam Neurological Exam: Alert, Awake, Oriented x3 - Skin Skin Exam: Intact, Normal Color, Warm Objective - Vital Signs/Intake and Output Vital Signs (last 24 hours): Temp Pulse Resp BP Pulse Ox 97.3 F L 82 20 131/66 99 04/12/18 08:00 04/12/18 08:02 04/12/18 08:02 04/12/18 08:02 04/12/18 08:02 Intake and Output: 04/12/18 04/12/18 06:59 18:59 Intake Total 340 240 Output Total 600 0 Balance -260 240 - Medications Medications: Current Medications Acetaminophen (Tylenol 325mg Tab) 650 mg PO Q6 PRN PRN Reason: Fever >100.4 F Last Admin: 04/11/18 14:23 Dose: 650 mg Apixaban (Eliquis) 2.5 mg PO Q12 [facility] Last Admin: 04/11/18 21:55 Dose: 2.5 mg Diltiazem HCl (Cardizem Cd) 240 mg PO DAILY [facility] Last Admin: 04/11/18 09:39 Dose: 240 mg Docusate Sodium (Colace) 100 mg PO DAILY [facility] Last Admin: 04/11/18 09:40 Dose: 100 mg Folic Acid (Folic Acid) 1 mg PO DAILY [facility] Last Admin: 04/11/18 09:39 Dose: 1 mg Furosemide (Lasix) 40 mg PO DAILY [facility] Last Admin: 04/11/18 09:39 Dose: 40 mg Imipenem/Cilastatin Sodium 500 (mg/ Sodium Chloride) 100 mls @ 100 mls/hr IVPB Q12H [facility] PRN Reason: Protocol Last Admin: 04/11/18 22:10 Dose: 100 mls/hr Ipratropium [place] (Atrovent) 0.5 mg IH RQ6 [facility] Last Admin: 04/11/18 14:09 Dose: 0.5 mg Levothyroxine Sodium (Synthroid) 25 mcg PO DAILY@0630 [facility] Last Admin: 04/12/18 05:45 Dose: 25 mcg Lidocaine (Lidoderm) 1 ea TD DAILY [facility] Last Admin: 04/11/18 09:39 Dose: 1 ea Methylprednisolone (Solu-Medrol) 40 mg IVP Q8H [facility] Last Admin: 04/12/18 05:00 Dose: 40 mg Metoprolol Tartrate (Lopressor) 50 mg PO BIDBS [facility] Last Admin: 04/12/18 06:30 Dose: 50 mg Metoprolol Tartrate (Lopressor) 5 mg IVP Q6 PRN PRN Reason: HR >120 Pantoprazole Sodium (Protonix Ec Tab) 40 mg PO DAILY [facility] Senna/Docusate Sodium (Senokot S 50 Mg-8.6 Mg) 1 tab PO HS [facility] Last Admin: 04/11/18 21:55 Dose: 1 tab - Labs Labs: 04/12/18 05:53 04/12/18 05:54 PT 14.9 SECONDS (9.7-12.2) H 04/10/18 06:32 INR 1.4 04/10/18 06:32 APTT 31 SECONDS (21-34) 04/10/18 06:32 Assessment and Plan - Assessment and Plan (Free Text) Assessment: 87 yo F admitted with hypoxemic respiratory failure 2/2 CHF exacerbation vs. PNA admitted to ICU on 04/03/18 for respiratory distress 1. CHF exacerbation- EF 04/04~44% Hx CAD and TAVR x 2 -pBNP 23,000 on admission -lasix 20mg BID IV - I's 1050 O's 1200 - CXR slightly improved today 2. A. Fib - metoprolol 5 mg IV q8 - Cardizem 30 mg po QID - Pt restarted on Eliquis at 2.5 mg BID 3. Hypoxemic respiratory failure - Improving - ipratropium q6 - Solumedrol 40 IVP q 8. Will consider decreasing to q 12 4. Right sided apical PNA -immipenem 500mg q8 - ID, Dr. Loredo is consulted 5. PUD - endoscopy done on 03/19/18 showed non-bleeding esophageal ulcer, esophagitis, and non-bleeding duodenal ulcer with no stigmata of bleeding - Continue protonix 40 IVP qd - will advance diet as tolerated 6. Constipation - Senokot, colace 7. UTI - urine culture positive for coagulase negative staph - Continue Abx 8. Pancytopenia - Improving - Pt transfused PRBC on admission - Hgb stable - Continue iron supplements - negative blood cultures - Bone marrow biopsy done on 03/24/18 showed hypercellular marrow with maturing trilineage hematopoeisis and a decreased M:E ratio. Stoarge iron present. No evidence of overt myeodysplasia, plasma cell myeloma or lymphoma. Report in chart 9. Sepsis likely 2/2 UTI vs. PNA - Afebrile overnight. - Urine culture positive on admission. Repeat cultures positive for yeast - immipenem 500mg q8 Ppx - SCDs - Protonix 40mg - Eliquis
--- NOTE | 2018-04-12 08:27 | RAD ---
Chest x-ray single frontal view History: Congestive heart failure. Comparison: 04/09/2018 Findings: Biapical pleural thickening with upper lobe granulomatous changes. Moderate venous congestion. Consolidative changes at the left lung base with small left pleural effusion. Mammilated right hemidiaphragm. Cardiomegaly. Postsurgical changes in the heart. Left-sided pacemaker. Degenerative changes in the spine and shoulders. Impression: Biapical pleural thickening with upper lobe granulomatous changes. Moderate venous congestion. Consolidative changes at the left lung base with small left pleural effusion. Mammilated right hemidiaphragm. Cardiomegaly. Postsurgical changes in the heart. Left-sided pacemaker.
[2018-04-12 08:32] LABS: LYMPHOCYTE 3 % (20-40); MONOCYTE 2 % (0-10); NEUTROPHIL 95 % (50-75); TOTAL CELLS COUNTED 100
[2018-04-12 08:33] LABS: ANISOCYTOSIS SLIGHT; HYPOCHROMIC SLIGHT; OVALOCYTES SLIGHT; PLATELET ESTIMATE DECREASED (NORMAL); POLYCHROMIC SLIGHT
[2018-04-12] MEDS: diltiaZEM 240 mg/24 Hours CD Cap PO SCH (09:17)
[2018-04-12] MEDS: Pantoprazole 40 mg EC Tab PO SCH (09:18)
[2018-04-12] MEDS: Lidocaine 5% Patch TD SCH (09:18)
--- NOTE | 2018-04-12 09:34 | CARD ---
APPROVED REPORT Date of service: 04/04/2018 EKG Measurement Heart [id number] <Conclusion> Atrial fibrillation Left axis deviation Left bundle branch block Abnormal ECG
--- NOTE | 2018-04-12 13:08 | CP.PCM.PN ---
Subjective - Date & Time of Evaluation Date of Evaluation: 04/12/18 Time of Evaluation: 13:05 - Subjective Subjective: INFECTIOUS DISEASE ICU PROGRESS NOTE TOLENTINO MD, FACP 04/12/2018 CHART REVIEWED PT EXAMINED CASE DISCUSSED WITH MED STAFF CLINICALLY IS STABLE FROM THE ID PT OF VIEW TO D/C PRIMAXIN AFTER TODAYS LAST DOSE LUNGS CLEARING IN UPPER LOBES COR ATRIAL FIB ABD EATING WITHOUT PROBLEMS EXT EDEMA CHRONIC D/C PRIMAXIN AFTER TODAYS LAST DOSE ON NASAL OXYGEN/ LUCITA WETZEL MD, FACP Objective - Vital Signs/Intake and Output Vital Signs (last 24 hours): Temp Pulse Resp BP Pulse Ox 97.2 F L 90 20 135/84 99 04/12/18 12:00 04/12/18 12:00 04/12/18 12:00 04/12/18 12:00 04/12/18 12:00 Intake and Output: 04/12/18 04/12/18 06:59 18:59 Intake Total 340 540 Output Total 600 0 Balance -260 540 - Medications Medications: Current Medications Acetaminophen (Tylenol 325mg Tab) 650 mg PO Q6 PRN PRN Reason: Fever >100.4 F Last Admin: 04/11/18 14:23 Dose: 650 mg Apixaban (Eliquis) 2.5 mg PO Q12 [facility] Last Admin: 04/12/18 09:17 Dose: 2.5 mg Diltiazem HCl (Cardizem Cd) 240 mg PO DAILY [facility] Last Admin: 04/12/18 09:17 Dose: 240 mg Docusate Sodium (Colace) 100 mg PO DAILY [facility] Last Admin: 04/12/18 09:17 Dose: 100 mg Folic Acid (Folic Acid) 1 mg PO DAILY [facility] Last Admin: 04/12/18 09:17 Dose: 1 mg Furosemide (Lasix) 40 mg PO DAILY [facility] Last Admin: 04/12/18 09:17 Dose: 40 mg Imipenem/Cilastatin Sodium 500 (mg/ Sodium Chloride) 100 mls @ 100 mls/hr IVPB Q12H [facility] PRN Reason: Protocol Last Admin: 04/12/18 10:21 Dose: 100 mls/hr Ipratropium [place] (Atrovent) 0.5 mg IH RQ6 [facility] Last Admin: 04/11/18 14:09 Dose: 0.5 mg Levothyroxine Sodium (Synthroid) 25 mcg PO DAILY@0630 [facility] Last Admin: 04/12/18 05:45 Dose: 25 mcg Lidocaine (Lidoderm) 1 ea TD DAILY [facility] Last Admin: 04/12/18 09:18 Dose: 1 ea Methylprednisolone (Solu-Medrol) 40 mg IVP Q8H [facility] Last Admin: 04/12/18 11:15 Dose: 40 mg Metoprolol Tartrate (Lopressor) 50 mg PO BIDBS [facility] Last Admin: 04/12/18 06:30 Dose: 50 mg Metoprolol Tartrate (Lopressor) 5 mg IVP Q6 PRN PRN Reason: HR >120 Pantoprazole Sodium (Protonix Ec Tab) 40 mg PO DAILY [facility] Last Admin: 04/12/18 09:18 Dose: 40 mg Senna/Docusate Sodium (Senokot S 50 Mg-8.6 Mg) 1 tab PO HS [facility] Last Admin: 04/11/18 21:55 Dose: 1 tab - Labs Labs: 04/12/18 05:53 04/12/18 05:54 PT 14.9 SECONDS (9.7-12.2) H 04/10/18 06:32 INR 1.4 04/10/18 06:32 APTT 31 SECONDS (21-34) 04/10/18 06:32 Assessment and Plan (1) Pancytopenia Status: Acute (2) HAP (hospital-acquired pneumonia) Status: Suspected (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
--- NOTE | 2018-04-12 18:53 | CP.PCM.PN ---
Subjective - Date & Time of Evaluation Date of Evaluation: 04/12/18 Time of Evaluation: 18:53 - Subjective Subjective: Patient heart rate is much controlled well. She does not have any shortness of breath. But exertional dyspnea noted. No abdominal pain noted On examination: Vital signs stable. Mild tachycardia noted. Pacemaker rhythm noted Labs reviewed Assessment and recommendation: 87 female status post pacemaker atrial fibrillation hypertension history of aortic valve replacement x2. Admitted with respiratory insufficiency, pneumonia. Chronic renal failure. Anemia of unclear etiology. Currently on antibiotic. We will continue the current treatment. Physical therapy. Transfer to telemetry Objective - Vital Signs/Intake and Output Vital Signs (last 24 hours): Temp Pulse Resp BP Pulse Ox 97.4 F L 75 17 134/74 94 L 04/12/18 16:00 04/12/18 17:01 04/12/18 17:01 04/12/18 17:01 04/12/18 16:01 Intake and Output: 04/12/18 04/12/18 06:59 18:59 Intake Total 340 780 Output Total 600 1 Balance -260 779 - Medications Medications: Current Medications Acetaminophen (Tylenol 325mg Tab) 650 mg PO Q6 PRN PRN Reason: Fever >100.4 F Last Admin: 04/12/18 17:53 Dose: 650 mg Apixaban (Eliquis) 2.5 mg PO Q12 [facility] Last Admin: 04/12/18 09:17 Dose: 2.5 mg Diltiazem HCl (Cardizem Cd) 240 mg PO DAILY [facility] Last Admin: 04/12/18 09:17 Dose: 240 mg Docusate Sodium (Colace) 100 mg PO DAILY [facility] Last Admin: 04/12/18 09:17 Dose: 100 mg Folic Acid (Folic Acid) 1 mg PO DAILY [facility] Last Admin: 04/12/18 09:17 Dose: 1 mg Furosemide (Lasix) 40 mg PO DAILY [facility] Last Admin: 04/12/18 09:17 Dose: 40 mg Imipenem/Cilastatin Sodium 500 (mg/ Sodium Chloride) 100 mls @ 100 mls/hr IVPB Q12H [facility] PRN Reason: Protocol Stop: 04/12/18 23:59 Last Admin: 04/12/18 10:21 Dose: 100 mls/hr Ipratropium [place] (Atrovent) 0.5 mg IH RQ6 [facility] Levothyroxine Sodium (Synthroid) 25 mcg PO DAILY@0630 [facility] Last Admin: 04/12/18 05:45 Dose: 25 mcg Lidocaine (Lidoderm) 1 ea TD DAILY [facility] Last Admin: 04/12/18 09:18 Dose: 1 ea Methylprednisolone (Solu-Medrol) 40 mg IVP Q8H [facility] Last Admin: 04/12/18 11:15 Dose: 40 mg Metoprolol Tartrate (Lopressor) 50 mg PO BIDBS [facility] Last Admin: 04/12/18 16:34 Dose: 50 mg Metoprolol Tartrate (Lopressor) 5 mg IVP Q6 PRN PRN Reason: HR >120 Pantoprazole Sodium (Protonix Ec Tab) 40 mg PO DAILY [facility] Last Admin: 04/12/18 09:18 Dose: 40 mg Senna/Docusate Sodium (Senokot S 50 Mg-8.6 Mg) 1 tab PO HS [facility] Last Admin: 04/11/18 21:55 Dose: 1 tab - Labs Labs: 04/12/18 05:53 04/12/18 05:54 PT 14.9 SECONDS (9.7-12.2) H 04/10/18 06:32 INR 1.4 04/10/18 06:32 APTT 31 SECONDS (21-34) 04/10/18 06:32
[2018-04-12] MEDS: Ipratropium 0.02% Inhal Soln (0.5 mg/2.5 ml) UD IH SCH ×2 (20:20→20:21)
[2018-04-12] MEDS: Docusate-Senna 50 mg-8.6 mg Tab PO SCH (21:15)
--- NOTE | 2018-04-12 23:09 | CP.PCM.PN ---
Subjective - Date & Time of Evaluation Date of Evaluation: 04/12/18 Time of Evaluation: 11:05 - Subjective Subjective: Patient seen and evaluated this am Denies chest pain and dyspnea Objective - Vital Signs/Intake and Output Vital Signs (last 24 hours): Temp Pulse Resp BP Pulse Ox 97.3 F L 74 22 129/65 99 04/12/18 20:00 04/12/18 20:00 04/12/18 20:00 04/12/18 20:00 04/12/18 20:00 Intake and Output: 04/12/18 04/13/18 18:59 06:59 Intake Total 1020 220 Output Total 700 Balance 320 220 - Medications Medications: Current Medications Acetaminophen (Tylenol 325mg Tab) 650 mg PO Q6 PRN PRN Reason: Fever >100.4 F Last Admin: 04/12/18 17:53 Dose: 650 mg Apixaban (Eliquis) 2.5 mg PO Q12 [facility] Last Admin: 04/12/18 21:15 Dose: 2.5 mg Diltiazem HCl (Cardizem Cd) 240 mg PO DAILY [facility] Last Admin: 04/12/18 09:17 Dose: 240 mg Docusate Sodium (Colace) 100 mg PO DAILY [facility] Last Admin: 04/12/18 09:17 Dose: 100 mg Folic Acid (Folic Acid) 1 mg PO DAILY [facility] Last Admin: 04/12/18 09:17 Dose: 1 mg Furosemide (Lasix) 40 mg PO DAILY [facility] Last Admin: 04/12/18 09:17 Dose: 40 mg Imipenem/Cilastatin Sodium 500 (mg/ Sodium Chloride) 100 mls @ 100 mls/hr IVPB Q12H [facility] PRN Reason: Protocol Stop: 04/12/18 23:59 Last Admin: 04/12/18 22:00 Dose: 100 mls/hr Ipratropium [place] (Atrovent) 0.5 mg IH RQ6 [facility] Last Admin: 04/12/18 20:21 Dose: Not Given Levothyroxine Sodium (Synthroid) 25 mcg PO DAILY@0630 [facility] Last Admin: 04/12/18 05:45 Dose: 25 mcg Lidocaine (Lidoderm) 1 ea TD DAILY [facility] Last Admin: 04/12/18 09:18 Dose: 1 ea Methylprednisolone (Solu-Medrol) 40 mg IVP Q8H [facility] Last Admin: 04/12/18 19:30 Dose: 40 mg Metoprolol Tartrate (Lopressor) 50 mg PO BIDBS [facility] Last Admin: 04/12/18 16:34 Dose: 50 mg Metoprolol Tartrate (Lopressor) 5 mg IVP Q6 PRN PRN Reason: HR >120 Pantoprazole Sodium (Protonix Ec Tab) 40 mg PO DAILY [facility] Last Admin: 04/12/18 09:18 Dose: 40 mg Senna/Docusate Sodium (Senokot S 50 Mg-8.6 Mg) 1 tab PO HS [facility] Last Admin: 04/12/18 21:15 Dose: 1 tab - Labs Labs: 04/12/18 05:53 04/12/18 05:54 PT 14.9 SECONDS (9.7-12.2) H 04/10/18 06:32 INR 1.4 04/10/18 06:32 APTT 31 SECONDS (21-34) 04/10/18 06:32
[2018-04-13] MEDS: Ipratropium 0.02% Inhal Soln (0.5 mg/2.5 ml) UD IH SCH (01:05)
[2018-04-13] MEDS: MethylPREDNISolone 40 mg Vial IVP SCH ×3 (05:00→20:40)
[2018-04-13] MEDS: Levothyroxine 25 MCG TAB PO SCH (06:10)
[2018-04-13 06:33] LABS: BASO % 0.3 % (0.0-2.0); LYMPH # 0.4 K/uL (1.0-4.3); LYMPH % 6.3 % (20.0-40.0); MEAN CELL VOLUME 82.7 fL (81.0-99.0); MEAN CORPUSCULAR HEMOGLOBIN 26.7 pg (27.0-31.0); MEAN CORPUSCULAR HGB CONC 32.3 g/dL (33.0-37.0); MEAN PLATELET VOLUME 9.1 fL (7.2-11.7); MONO # 0.4 K/uL (0.0-0.8); MONO % 6.2 % (0.0-10.0); NEUT # 5.3 K/uL (1.8-7.0); NEUT % 87.2 % (50.0-75.0); PLATELET COUNT 108 K/uL (130-400); RBC 3.74 Mil/uL (3.80-5.20); RED CELL DISTRIBUTION WIDTH 18.5 % (11.5-14.5)
[2018-04-13 06:51] LABS: ALBUMIN 2.5 g/dL (3.5-5.0); CALCIUM 8.1 mg/dl (8.6-10.4); GFR AFRICAN-AMERICAN > 60; GFR NON-AFRICAN AMERICAN 59
[2018-04-13 06:52] LABS: ALT/SGPT 54 U/L (9-52); AST/SGOT 42 U/L (14-36); BLOOD UREA NITROGEN 49 mg/dL (7-17)
[2018-04-13 08:23] LABS: BANDS 3 % (0-2)
[2018-04-13 08:24] LABS: ANISOCYTOSIS MODERATE; HYPOCHROMIC SLIGHT; LYMPHOCYTE 5 % (20-40); MONOCYTE 5 % (0-10); NEUTROPHIL 87 % (50-75); PLATELET ESTIMATE SLIGHTLY INCREASED (NORMAL); POIKILOCYTOSIS SLIGHT; TOTAL CELLS COUNTED 100
[2018-04-13] MEDS: Lidocaine 5% Patch TD SCH (10:00)
[2018-04-13] MEDS: diltiaZEM 240 mg/24 Hours CD Cap PO SCH (10:00)
[2018-04-13] MEDS: Pantoprazole 40 mg EC Tab PO SCH (10:01)
--- NOTE | 2018-04-13 14:22 | CP.PCM.PN ---
<Laura Valle - Last Filed: 04/13/18 15:27> Subjective - Date & Time of Evaluation Date of Evaluation: 04/13/18 Time of Evaluation: 12:30 - Subjective Subjective: PGY2- Progress Note for Dr. Gaitan Patient seen and examined sitting up in chair. Patient has only been needing nasal cannula. Patient is feeling much better. Patient denies any chest pain, abdominal pain, nausea, vomiting, constipation, or diarrhea. Patient worked with physical therapy today, but was exhausted afterward. Objective - Vital Signs/Intake and Output Vital Signs (last 24 hours): Temp Pulse Resp BP Pulse Ox 97.3 F L 78 15 139/69 99 04/13/18 08:00 04/13/18 08:01 04/13/18 08:01 04/13/18 10:00 04/13/18 08:01 Intake and Output: 04/13/18 04/13/18 06:59 18:59 Intake Total 340 Output Total 500 Balance -160 - Medications Medications: Current Medications Acetaminophen (Tylenol 325mg Tab) 650 mg PO Q6 PRN PRN Reason: Fever >100.4 F Last Admin: 04/13/18 00:09 Dose: 650 mg Apixaban (Eliquis) 2.5 mg PO Q12 [facility] Last Admin: 04/13/18 10:00 Dose: 2.5 mg Diltiazem HCl (Cardizem Cd) 240 mg PO DAILY [facility] Last Admin: 04/13/18 10:00 Dose: 240 mg Docusate Sodium (Colace) 100 mg PO DAILY [facility] Last Admin: 04/13/18 10:00 Dose: 100 mg Folic Acid (Folic Acid) 1 mg PO DAILY [facility] Last Admin: 04/13/18 10:00 Dose: 1 mg Furosemide (Lasix) 40 mg PO DAILY [facility] Last Admin: 04/13/18 10:00 Dose: 40 mg Ipratropium [place] (Atrovent) 0.5 mg IH RQ6 [facility] Last Admin: 04/13/18 01:05 Dose: Not Given Levothyroxine Sodium (Synthroid) 25 mcg PO DAILY@0630 [facility] Last Admin: 04/13/18 06:10 Dose: 25 mcg Lidocaine (Lidoderm) 1 ea TD DAILY [facility] Last Admin: 04/13/18 10:00 Dose: 1 ea Methylprednisolone (Solu-Medrol) 40 mg IVP Q8H [facility] Last Admin: 04/13/18 05:00 Dose: 40 mg Metoprolol Tartrate (Lopressor) 50 mg PO BIDBS [facility] Last Admin: 04/13/18 06:30 Dose: 50 mg Metoprolol Tartrate (Lopressor) 5 mg IVP Q6 PRN PRN Reason: HR >120 Pantoprazole Sodium (Protonix Ec Tab) 40 mg PO DAILY [facility] Last Admin: 04/13/18 10:01 Dose: 40 mg Senna/Docusate Sodium (Senokot S 50 Mg-8.6 Mg) 1 tab PO HS [facility] Last Admin: 04/12/18 21:15 Dose: 1 tab - Labs Labs: 04/13/18 06:24 04/13/18 06:24 PT 14.9 SECONDS (9.7-12.2) H 04/10/18 06:32 INR 1.4 04/10/18 06:32 APTT 31 SECONDS (21-34) 04/10/18 06:32 - Constitutional Appears: Non-toxic, No Acute Distress - Head Exam Head Exam: ATRAUMATIC, NORMAL INSPECTION, NORMOCEPHALIC - Eye Exam Eye Exam: EOMI, Normal appearance - ENT Exam ENT Exam: Mucous Membranes Moist - Respiratory Exam Respiratory Exam: Clear to Ausculation Bilateral, NORMAL BREATHING PATTERN - Cardiovascular Exam Cardiovascular Exam: Irregular Rhythm, RRR, +S1, +S2 - GI/Abdominal Exam GI & Abdominal Exam: Soft, Normal Bowel Sounds. absent: Tenderness - Extremities Exam Extremities Exam: Full ROM, Normal Inspection. absent: Pedal Edema, Tenderness - Neurological Exam Neurological Exam: Alert, Awake, Oriented x3 - Psychiatric Exam Psychiatric exam: Normal Affect, Normal Mood - Skin Skin Exam: Intact, Normal Color, Warm Assessment and Plan - Assessment and Plan (Free Text) Assessment: CHF exacerbation Echo (04/04/18): EF :44% mild to moderate left ventricular hypertropy. Systolic function is mildly impaired. Septal hypokinesis. Moderate valvular aortic stenosis. Mitral regurg is moderate. Moderate tricuspid regurg. Mild pulmonary hypertension. -BNP 23,000 -lasix 20mg BID -solu-medrol 40mg ivp q8h -NC and BiPAP as needed A. Fib -Eliquis 2.5mg po q12h restarted on 04/07 -Metoprolol 5mg ivp q8h -Metoprolol 50mg po BIDBS -Cardizem 240mg po daily (started on 04/10) Right sided apical PNA - last dose of Primaxin completed on 04/12/18 - ID, Dr. Loredo is consulted Discussed with Dr. Gaitan <Kenny Gaitan - Last Filed: 04/14/18 22:56> Objective - Vital Signs/Intake and Output Vital Signs (last 24 hours): Temp Pulse Resp BP Pulse Ox 97.2 F L 70 20 131/70 100 04/14/18 15:08 04/14/18 16:00 04/14/18 15:08 04/14/18 15:08 04/14/18 15:08 Intake and Output: 04/14/18 04/15/18 18:59 06:59 Intake Total 240 Balance 240 - Medications Medications: Current Medications Acetaminophen (Tylenol 325mg Tab) 650 mg PO Q6 PRN PRN Reason: Fever >100.4 F Last Admin: 04/14/18 12:05 Dose: 650 mg Apixaban (Eliquis) 2.5 mg PO Q12 [facility] Last Admin: 04/14/18 22:16 Dose: 2.5 mg Diltiazem HCl (Cardizem Cd) 240 mg PO DAILY [facility] Last Admin: 04/14/18 09:16 Dose: 240 mg Docusate Sodium (Colace) 100 mg PO DAILY [facility] Last Admin: 04/14/18 09:16 Dose: 100 mg Folic Acid (Folic Acid) 1 mg PO DAILY [facility] Last Admin: 04/14/18 09:16 Dose: 1 mg Furosemide (Lasix) 20 mg PO DAILY [facility] Last Admin: 04/14/18 10:09 Dose: 20 mg Ipratropium [place] (Atrovent) 0.5 mg IH RQ6 [facility] Last Admin: 04/14/18 19:08 Dose: 0.5 mg Levothyroxine Sodium (Synthroid) 25 mcg PO DAILY@0630 [facility] Last Admin: 04/14/18 06:13 Dose: 25 mcg Lidocaine (Lidoderm) 1 ea TD DAILY [facility] Last Admin: 04/14/18 09:15 Dose: 1 ea Methylprednisolone (Solu-Medrol) 20 mg IVP Q12 [facility] Last Admin: 04/14/18 22:16 Dose: 20 mg Metoprolol Tartrate (Lopressor) 50 mg PO BIDBS [facility] Last Admin: 04/14/18 16:42 Dose: 50 mg Pantoprazole Sodium (Protonix Ec Tab) 40 mg PO DAILY [facility] Last Admin: 04/14/18 09:16 Dose: 40 mg - Labs Labs: 04/13/18 06:24 04/13/18 06:24 PT 14.9 SECONDS (9.7-12.2) H 04/10/18 06:32 INR 1.4 04/10/18 06:32 APTT 31 SECONDS (21-34) 04/10/18 06:32 Assessment and Plan - Assessment and Plan (Free Text) Assessment: Patient seen and evaluated personally by pa Plan of care d/w the medical record assistant and as documented
--- NOTE | 2018-04-13 17:58 | CP.PCM.PN ---
Subjective - Date & Time of Evaluation Date of Evaluation: 04/13/18 Time of Evaluation: 17:56 - Subjective Subjective: INFECTIOUS DISEASE PROGRESS NOTES LUCITA WETZEL MD, FACP 04/13/2018 ICU/CCU 14A CHART REVIEWED PT EXAMINED CASE DISCUSSED Patient seen and examined sitting up in chair. Patient has only been needing nasal cannula. Patient is feeling much better. Patient denies any chest pain, abdominal pain, nausea, vomiting, constipation, or diarrhea. Patient worked with physical therapy today, but was exhausted afterward. Objective - Vital Signs/Intake and Output Vital Signs (last 24 hours): Temp Pulse Resp BP Pulse Ox 97.5 F L 79 23 140/65 100 04/13/18 12:00 04/13/18 14:00 04/13/18 14:00 04/13/18 12:00 04/13/18 14:00 Intake and Output: 04/13/18 04/13/18 06:59 18:59 Intake Total 340 Output Total 500 Balance -160 - Medications Medications: Current Medications Acetaminophen (Tylenol 325mg Tab) 650 mg PO Q6 PRN PRN Reason: Fever >100.4 F Last Admin: 04/13/18 00:09 Dose: 650 mg Apixaban (Eliquis) 2.5 mg PO Q12 [facility] Last Admin: 04/13/18 10:00 Dose: 2.5 mg Diltiazem HCl (Cardizem Cd) 240 mg PO DAILY [facility] Last Admin: 04/13/18 10:00 Dose: 240 mg Docusate Sodium (Colace) 100 mg PO DAILY [facility] Last Admin: 04/13/18 10:00 Dose: 100 mg Folic Acid (Folic Acid) 1 mg PO DAILY [facility] Last Admin: 04/13/18 10:00 Dose: 1 mg Furosemide (Lasix) 40 mg PO DAILY [facility] Last Admin: 04/13/18 10:00 Dose: 40 mg Ipratropium [place] (Atrovent) 0.5 mg IH RQ6 [facility] Last Admin: 04/13/18 01:05 Dose: Not Given Levothyroxine Sodium (Synthroid) 25 mcg PO DAILY@0630 [facility] Last Admin: 04/13/18 06:10 Dose: 25 mcg Lidocaine (Lidoderm) 1 ea TD DAILY [facility] Last Admin: 04/13/18 10:00 Dose: 1 ea Methylprednisolone (Solu-Medrol) 40 mg IVP Q8H [facility] Last Admin: 04/13/18 15:43 Dose: 40 mg Metoprolol Tartrate (Lopressor) 50 mg PO BIDBS [facility] Last Admin: 04/13/18 06:30 Dose: 50 mg Metoprolol Tartrate (Lopressor) 5 mg IVP Q6 PRN PRN Reason: HR >120 Pantoprazole Sodium (Protonix Ec Tab) 40 mg PO DAILY [facility] Last Admin: 04/13/18 10:01 Dose: 40 mg Senna/Docusate Sodium (Senokot S 50 Mg-8.6 Mg) 1 tab PO HS [facility] Last Admin: 04/12/18 21:15 Dose: 1 tab - Labs Labs: 04/13/18 06:24 04/13/18 06:24 PT 14.9 SECONDS (9.7-12.2) H 04/10/18 06:32 INR 1.4 04/10/18 06:32 APTT 31 SECONDS (21-34) 04/10/18 06:32 Assessment and Plan (1) Pancytopenia Status: Acute (2) HAP (hospital-acquired pneumonia) Status: Suspected (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
[2018-04-13] MEDS: Docusate-Senna 50 mg-8.6 mg Tab PO SCH (21:34)
[2018-04-14] MEDS: Ipratropium 0.02% Inhal Soln (0.5 mg/2.5 ml) UD IH SCH ×5 (01:35→19:08)
[2018-04-14] MEDS: MethylPREDNISolone 40 mg Vial IVP SCH ×3 (04:00→22:16)
[2018-04-14] MEDS: Levothyroxine 25 MCG TAB PO SCH (06:13)
[2018-04-14] MEDS: Lidocaine 5% Patch TD SCH (09:15)
[2018-04-14] MEDS: Pantoprazole 40 mg EC Tab PO SCH (09:16)
[2018-04-14] MEDS: diltiaZEM 240 mg/24 Hours CD Cap PO SCH (09:16)
--- NOTE | 2018-04-14 17:46 | CP.PCM.PN ---
Subjective - Date & Time of Evaluation Date of Evaluation: 04/14/18 Time of Evaluation: 15:20 - Subjective Subjective: Breathing better. Objective - Vital Signs/Intake and Output Vital Signs (last 24 hours): Temp Pulse Resp BP Pulse Ox 97.2 F L 74 20 131/70 100 04/14/18 15:08 04/14/18 15:08 04/14/18 15:08 04/14/18 15:08 04/14/18 15:08 Intake and Output: 04/14/18 04/14/18 06:59 18:59 Intake Total 240 Output Total 0 Balance 0 240 - Medications Medications: Current Medications Acetaminophen (Tylenol 325mg Tab) 650 mg PO Q6 PRN PRN Reason: Fever >100.4 F Last Admin: 04/14/18 12:05 Dose: 650 mg Apixaban (Eliquis) 2.5 mg PO Q12 [facility] Last Admin: 04/14/18 09:16 Dose: 2.5 mg Diltiazem HCl (Cardizem Cd) 240 mg PO DAILY [facility] Last Admin: 04/14/18 09:16 Dose: 240 mg Docusate Sodium (Colace) 100 mg PO DAILY [facility] Last Admin: 04/14/18 09:16 Dose: 100 mg Folic Acid (Folic Acid) 1 mg PO DAILY [facility] Last Admin: 04/14/18 09:16 Dose: 1 mg Furosemide (Lasix) 20 mg PO DAILY [facility] Last Admin: 04/14/18 10:09 Dose: 20 mg Ipratropium [place] (Atrovent) 0.5 mg IH RQ6 [facility] Last Admin: 04/14/18 14:24 Dose: Not Given Levothyroxine Sodium (Synthroid) 25 mcg PO DAILY@0630 [facility] Last Admin: 04/14/18 06:13 Dose: 25 mcg Lidocaine (Lidoderm) 1 ea TD DAILY [facility] Last Admin: 04/14/18 09:15 Dose: 1 ea Methylprednisolone (Solu-Medrol) 20 mg IVP Q12 [facility] Last Admin: 04/14/18 10:10 Dose: 20 mg Metoprolol Tartrate (Lopressor) 50 mg PO BIDBS [facility] Last Admin: 04/14/18 16:42 Dose: 50 mg Pantoprazole Sodium (Protonix Ec Tab) 40 mg PO DAILY [facility] Last Admin: 04/14/18 09:16 Dose: 40 mg - Labs Labs: 04/13/18 06:24 04/13/18 06:24 PT 14.9 SECONDS (9.7-12.2) H 04/10/18 06:32 INR 1.4 04/10/18 06:32 APTT 31 SECONDS (21-34) 04/10/18 06:32 - Head Exam Head Exam: ATRAUMATIC - Eye Exam Eye Exam: Normal appearance - ENT Exam ENT Exam: Mucous Membranes Dry - Respiratory Exam Respiratory Exam: NORMAL BREATHING PATTERN - Cardiovascular Exam Cardiovascular Exam: +S1, +S2 - GI/Abdominal Exam GI & Abdominal Exam: Normal Bowel Sounds Assessment and Plan (1) Anemia Assessment & Plan: chronic disease, mild CKD no iron/b12/folate deficiency haptoglobin not decreased; not hemolysis ? intermittent GI blood loss no evidence of bone marrow pathology Status: Acute (2) Thrombocytopenia Assessment & Plan: mild improved ? related to infection ? medication no bone marrow pathology Status: Acute
--- NOTE | 2018-04-14 20:27 | CP.PCM.PN ---
Subjective - Date & Time of Evaluation Date of Evaluation: 04/10/18 Time of Evaluation: 20:27 - Subjective Subjective: Patient still lying down on the bed. Family at bedside. Able to sit up today. Eating slightly better. Having hard time and having bathroom On examination: Vital signs stable. Chest good air entry bilaterally. Regular heart sound. Abdomen nontender. No pedal edema Labs reviewed Hemoglobin stable. Improvement in the oxygenation noted Assessment and recommendation: 87-year-old female with history of atrial fibrillation, status post aortic valve replacement x2, pneumonia, respiratory insufficiency. Currently on antibiotic. Also receiving corticosteroid. We will closely taper for the steroid. Closely monitor. Physical therapy and will follow the patient Objective - Vital Signs/Intake and Output Vital Signs (last 24 hours): Temp Pulse Resp BP Pulse Ox 97.2 F L 70 20 131/70 100 04/14/18 15:08 04/14/18 16:00 04/14/18 15:08 04/14/18 15:08 04/14/18 15:08 Intake and Output: 04/14/18 04/15/18 18:59 06:59 Intake Total 240 Balance 240 - Medications Medications: Current Medications Acetaminophen (Tylenol 325mg Tab) 650 mg PO Q6 PRN PRN Reason: Fever >100.4 F Last Admin: 04/14/18 12:05 Dose: 650 mg Apixaban (Eliquis) 2.5 mg PO Q12 [facility] Last Admin: 04/14/18 09:16 Dose: 2.5 mg Diltiazem HCl (Cardizem Cd) 240 mg PO DAILY [facility] Last Admin: 04/14/18 09:16 Dose: 240 mg Docusate Sodium (Colace) 100 mg PO DAILY [facility] Last Admin: 04/14/18 09:16 Dose: 100 mg Folic Acid (Folic Acid) 1 mg PO DAILY [facility] Last Admin: 04/14/18 09:16 Dose: 1 mg Furosemide (Lasix) 20 mg PO DAILY [facility] Last Admin: 04/14/18 10:09 Dose: 20 mg Ipratropium [place] (Atrovent) 0.5 mg IH RQ6 [facility] Last Admin: 04/14/18 19:08 Dose: 0.5 mg Levothyroxine Sodium (Synthroid) 25 mcg PO DAILY@0630 [facility] Last Admin: 04/14/18 06:13 Dose: 25 mcg Lidocaine (Lidoderm) 1 ea TD DAILY [facility] Last Admin: 04/14/18 09:15 Dose: 1 ea Methylprednisolone (Solu-Medrol) 20 mg IVP Q12 [facility] Last Admin: 04/14/18 10:10 Dose: 20 mg Metoprolol Tartrate (Lopressor) 50 mg PO BIDBS [facility] Last Admin: 04/14/18 16:42 Dose: 50 mg Pantoprazole Sodium (Protonix Ec Tab) 40 mg PO DAILY [facility] Last Admin: 04/14/18 09:16 Dose: 40 mg - Labs Labs: 04/13/18 06:24 04/13/18 06:24 PT 14.9 SECONDS (9.7-12.2) H 04/10/18 06:32 INR 1.4 04/10/18 06:32 APTT 31 SECONDS (21-34) 04/10/18 06:32
--- NOTE | 2018-04-14 20:28 | CP.PCM.PN ---
Subjective - Date & Time of Evaluation Date of Evaluation: 04/14/18 Time of Evaluation: 20:28 - Subjective Subjective: Patient is currently having hard time and going to the bathroom. Constipated. Having difficulty sitting up on the toilet. Dulcolax suppository advised. On examination: Vital signs stable. Chest good air entry bilaterally. Regular heart sound. Nontender abdomen. Patient labs reviewed Nonspecific. Assessment and recommendation: 87-year-old female but multiple medical history. Aortic valve replacement x2 Atrial fibrillation on Eliquis Hypertension An antibiotic for presumptive pneumonia. On Solu-Medrol, will taper it down. Monitor the bowel movements. Repeat the labs tomorrow. Physical therapy. Patient's family wanted to take her home with the home physical therapy possibly. Patient may need home oxygen, will monitor and will follow the patient Objective - Vital Signs/Intake and Output Vital Signs (last 24 hours): Temp Pulse Resp BP Pulse Ox 97.2 F L 70 20 131/70 100 04/14/18 15:08 04/14/18 16:00 04/14/18 15:08 04/14/18 15:08 04/14/18 15:08 Intake and Output: 04/14/18 04/15/18 18:59 06:59 Intake Total 240 Balance 240 - Medications Medications: Current Medications Acetaminophen (Tylenol 325mg Tab) 650 mg PO Q6 PRN PRN Reason: Fever >100.4 F Last Admin: 04/14/18 12:05 Dose: 650 mg Apixaban (Eliquis) 2.5 mg PO Q12 [facility] Last Admin: 04/14/18 09:16 Dose: 2.5 mg Diltiazem HCl (Cardizem Cd) 240 mg PO DAILY [facility] Last Admin: 04/14/18 09:16 Dose: 240 mg Docusate Sodium (Colace) 100 mg PO DAILY [facility] Last Admin: 04/14/18 09:16 Dose: 100 mg Folic Acid (Folic Acid) 1 mg PO DAILY [facility] Last Admin: 04/14/18 09:16 Dose: 1 mg Furosemide (Lasix) 20 mg PO DAILY [facility] Last Admin: 04/14/18 10:09 Dose: 20 mg Ipratropium [place] (Atrovent) 0.5 mg IH RQ6 [facility] Last Admin: 04/14/18 19:08 Dose: 0.5 mg Levothyroxine Sodium (Synthroid) 25 mcg PO DAILY@0630 [facility] Last Admin: 04/14/18 06:13 Dose: 25 mcg Lidocaine (Lidoderm) 1 ea TD DAILY [facility] Last Admin: 04/14/18 09:15 Dose: 1 ea Methylprednisolone (Solu-Medrol) 20 mg IVP Q12 [facility] Last Admin: 04/14/18 10:10 Dose: 20 mg Metoprolol Tartrate (Lopressor) 50 mg PO BIDBS [facility] Last Admin: 04/14/18 16:42 Dose: 50 mg Pantoprazole Sodium (Protonix Ec Tab) 40 mg PO DAILY [facility] Last Admin: 04/14/18 09:16 Dose: 40 mg - Labs Labs: 04/13/18 06:24 04/13/18 06:24 PT 14.9 SECONDS (9.7-12.2) H 04/10/18 06:32 INR 1.4 04/10/18 06:32 APTT 31 SECONDS (21-34) 04/10/18 06:32
--- NOTE | 2018-04-14 20:28 | CP.PCM.PN ---
Subjective - Date & Time of Evaluation Date of Evaluation: 04/13/18 Time of Evaluation: 20:27 - Subjective Subjective: Patient is currently being transferred to telemetry. Comfortable. Patient was able to do the physical therapy today. Able to walk a few steps. Weakness and shortness of breath noted On examination: Vital signs stable. Chest good air entry Regular heart sound. Nontender abdomen Labs reviewed Hemoglobin is stable. WBC improving Assessment and recognition: 87-year-old female with a history of hypertension, atrial fibrillation, aortic valve replacement x2 Admitted with acute pneumonia, respiratory insufficiency. Renal failure. Off BiPAP, using oxygen. Weakness noted. Generalized. Continue the physical therapy. We will taper the steroid and will follow the patient. Currently patient is on Eliquis Objective - Vital Signs/Intake and Output Vital Signs (last 24 hours): Temp Pulse Resp BP Pulse Ox 97.2 F L 70 20 131/70 100 04/14/18 15:08 04/14/18 16:00 04/14/18 15:08 04/14/18 15:08 04/14/18 15:08 Intake and Output: 04/14/18 04/15/18 18:59 06:59 Intake Total 240 Balance 240 - Medications Medications: Current Medications Acetaminophen (Tylenol 325mg Tab) 650 mg PO Q6 PRN PRN Reason: Fever >100.4 F Last Admin: 04/14/18 12:05 Dose: 650 mg Apixaban (Eliquis) 2.5 mg PO Q12 [facility] Last Admin: 04/14/18 09:16 Dose: 2.5 mg Diltiazem HCl (Cardizem Cd) 240 mg PO DAILY [facility] Last Admin: 04/14/18 09:16 Dose: 240 mg Docusate Sodium (Colace) 100 mg PO DAILY [facility] Last Admin: 04/14/18 09:16 Dose: 100 mg Folic Acid (Folic Acid) 1 mg PO DAILY [facility] Last Admin: 04/14/18 09:16 Dose: 1 mg Furosemide (Lasix) 20 mg PO DAILY [facility] Last Admin: 04/14/18 10:09 Dose: 20 mg Ipratropium [place] (Atrovent) 0.5 mg IH RQ6 [facility] Last Admin: 04/14/18 19:08 Dose: 0.5 mg Levothyroxine Sodium (Synthroid) 25 mcg PO DAILY@0630 [facility] Last Admin: 04/14/18 06:13 Dose: 25 mcg Lidocaine (Lidoderm) 1 ea TD DAILY [facility] Last Admin: 04/14/18 09:15 Dose: 1 ea Methylprednisolone (Solu-Medrol) 20 mg IVP Q12 [facility] Last Admin: 04/14/18 10:10 Dose: 20 mg Metoprolol Tartrate (Lopressor) 50 mg PO BIDBS [facility] Last Admin: 04/14/18 16:42 Dose: 50 mg Pantoprazole Sodium (Protonix Ec Tab) 40 mg PO DAILY [facility] Last Admin: 04/14/18 09:16 Dose: 40 mg - Labs Labs: 04/13/18 06:24 04/13/18 06:24 PT 14.9 SECONDS (9.7-12.2) H 04/10/18 06:32 INR 1.4 04/10/18 06:32 APTT 31 SECONDS (21-34) 04/10/18 06:32
--- NOTE | 2018-04-14 22:31 | CP.PCM.PN ---
Subjective - Date & Time of Evaluation Date of Evaluation: 04/14/18 Time of Evaluation: 21:00 - Subjective Subjective: INFECTIOUS DISEASE PROGRESS NOTES LUCITA WETZEL MD, FACP 6T [id number] 04/14/2018 CLINICALLY IMPROVING CHRONIC ATRIAL FIB/CHF PNEUMONIA HAS RESPONDED-OFF PRIMAXIN SINCE LAST NIGHT. OBSERVE MEDICALLY FAMILY AWARE LUCITA WETZEL MD, FACP Objective - Vital Signs/Intake and Output Vital Signs (last 24 hours): Temp Pulse Resp BP Pulse Ox 97.2 F L 70 20 131/70 100 04/14/18 15:08 04/14/18 16:00 04/14/18 15:08 04/14/18 15:08 04/14/18 15:08 Intake and Output: 04/14/18 04/15/18 18:59 06:59 Intake Total 240 Balance 240 - Medications Medications: Current Medications Acetaminophen (Tylenol 325mg Tab) 650 mg PO Q6 PRN PRN Reason: Fever >100.4 F Last Admin: 04/14/18 12:05 Dose: 650 mg Apixaban (Eliquis) 2.5 mg PO Q12 [facility] Last Admin: 04/14/18 22:16 Dose: 2.5 mg Diltiazem HCl (Cardizem Cd) 240 mg PO DAILY [facility] Last Admin: 04/14/18 09:16 Dose: 240 mg Docusate Sodium (Colace) 100 mg PO DAILY [facility] Last Admin: 04/14/18 09:16 Dose: 100 mg Folic Acid (Folic Acid) 1 mg PO DAILY [facility] Last Admin: 04/14/18 09:16 Dose: 1 mg Furosemide (Lasix) 20 mg PO DAILY [facility] Last Admin: 04/14/18 10:09 Dose: 20 mg Ipratropium [place] (Atrovent) 0.5 mg IH RQ6 [facility] Last Admin: 04/14/18 19:08 Dose: 0.5 mg Levothyroxine Sodium (Synthroid) 25 mcg PO DAILY@0630 [facility] Last Admin: 04/14/18 06:13 Dose: 25 mcg Lidocaine (Lidoderm) 1 ea TD DAILY [facility] Last Admin: 04/14/18 09:15 Dose: 1 ea Methylprednisolone (Solu-Medrol) 20 mg IVP Q12 [facility] Last Admin: 04/14/18 22:16 Dose: 20 mg Metoprolol Tartrate (Lopressor) 50 mg PO BIDBS [facility] Last Admin: 04/14/18 16:42 Dose: 50 mg Pantoprazole Sodium (Protonix Ec Tab) 40 mg PO DAILY [facility] Last Admin: 04/14/18 09:16 Dose: 40 mg - Labs Labs: 04/13/18 06:24 04/13/18 06:24 PT 14.9 SECONDS (9.7-12.2) H 04/10/18 06:32 INR 1.4 04/10/18 06:32 APTT 31 SECONDS (21-34) 04/10/18 06:32 Assessment and Plan (1) Pancytopenia Status: Acute (2) HAP (hospital-acquired pneumonia) Status: Suspected (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
--- NOTE | 2018-04-14 22:58 | CP.PCM.PN ---
Subjective - Date & Time of Evaluation Date of Evaluation: 04/14/18 Time of Evaluation: 18:10 - Subjective Subjective: Patient seen and evaluated denies chest pain and dyspnea C/O dryness of mouth and weakness Objective - Vital Signs/Intake and Output Vital Signs (last 24 hours): Temp Pulse Resp BP Pulse Ox 97.2 F L 70 20 131/70 100 04/14/18 15:08 04/14/18 16:00 04/14/18 15:08 04/14/18 15:08 04/14/18 15:08 Intake and Output: 04/14/18 04/15/18 18:59 06:59 Intake Total 240 Balance 240 - Medications Medications: Current Medications Acetaminophen (Tylenol 325mg Tab) 650 mg PO Q6 PRN PRN Reason: Fever >100.4 F Last Admin: 04/14/18 12:05 Dose: 650 mg Apixaban (Eliquis) 2.5 mg PO Q12 [facility] Last Admin: 04/14/18 22:16 Dose: 2.5 mg Diltiazem HCl (Cardizem Cd) 240 mg PO DAILY [facility] Last Admin: 04/14/18 09:16 Dose: 240 mg Docusate Sodium (Colace) 100 mg PO DAILY [facility] Last Admin: 04/14/18 09:16 Dose: 100 mg Folic Acid (Folic Acid) 1 mg PO DAILY [facility] Last Admin: 04/14/18 09:16 Dose: 1 mg Furosemide (Lasix) 20 mg PO DAILY [facility] Last Admin: 04/14/18 10:09 Dose: 20 mg Ipratropium [place] (Atrovent) 0.5 mg IH RQ6 [facility] Last Admin: 04/14/18 19:08 Dose: 0.5 mg Levothyroxine Sodium (Synthroid) 25 mcg PO DAILY@0630 [facility] Last Admin: 04/14/18 06:13 Dose: 25 mcg Lidocaine (Lidoderm) 1 ea TD DAILY [facility] Last Admin: 04/14/18 09:15 Dose: 1 ea Methylprednisolone (Solu-Medrol) 20 mg IVP Q12 [facility] Last Admin: 04/14/18 22:16 Dose: 20 mg Metoprolol Tartrate (Lopressor) 50 mg PO BIDBS [facility] Last Admin: 04/14/18 16:42 Dose: 50 mg Pantoprazole Sodium (Protonix Ec Tab) 40 mg PO DAILY [facility] Last Admin: 04/14/18 09:16 Dose: 40 mg - Labs Labs: 04/13/18 06:24 04/13/18 06:24 PT 14.9 SECONDS (9.7-12.2) H 04/10/18 06:32 INR 1.4 04/10/18 06:32 APTT 31 SECONDS (21-34) 04/10/18 06:32
[2018-04-15] MEDS: Ipratropium 0.02% Inhal Soln (0.5 mg/2.5 ml) UD IH SCH ×4 (01:19→19:45)
[2018-04-15] MEDS: Levothyroxine 25 MCG TAB PO SCH (06:51)
[2018-04-15 07:54] LABS: BASO % 0.2 % (0.0-2.0); LYMPH # 0.5 K/uL (1.0-4.3); LYMPH % 5.5 % (20.0-40.0); MEAN CELL VOLUME 82.9 fL (81.0-99.0); MEAN CORPUSCULAR HEMOGLOBIN 27.2 pg (27.0-31.0); MEAN CORPUSCULAR HGB CONC 32.8 g/dL (33.0-37.0); MEAN PLATELET VOLUME 8.3 fL (7.2-11.7); MONO # 0.5 K/uL (0.0-0.8); MONO % 6.5 % (0.0-10.0); NEUT # 7.4 K/uL (1.8-7.0); NEUT % 87.8 % (50.0-75.0); PLATELET COUNT 126 K/uL (130-400); RBC 4.03 Mil/uL (3.80-5.20); RED CELL DISTRIBUTION WIDTH 19.2 % (11.5-14.5); WHITE BLOOD COUNT 8.4 K/uL (4.8-10.8)
[2018-04-15 08:06] LABS: ALB/GLOB RATIO 1.1 (1.0-2.1); ALBUMIN 2.6 g/dL (3.5-5.0); ALT/SGPT 68 U/L (9-52); AST/SGOT 30 U/L (14-36); BLOOD UREA NITROGEN 38 mg/dL (7-17); CALCIUM 8.4 mg/dl (8.6-10.4); GFR AFRICAN-AMERICAN > 60; GFR NON-AFRICAN AMERICAN > 60
[2018-04-15] MEDS: diltiaZEM 240 mg/24 Hours CD Cap PO SCH (09:52)
[2018-04-15 09:53] LABS: ANISOCYTOSIS MODERATE; BANDS 2 % (0-2); LYMPHOCYTE 7 % (20-40); MONOCYTE 3 % (0-10); MYELOCYTE 1 % (0-0); NEUTROPHIL 86 % (50-75); PLATELET ESTIMATE SLIGHTLY DECREASED (NORMAL); REACTIVE LYMPHOCYTES 1 % (0-0); TOTAL CELLS COUNTED 100
[2018-04-15 09:54] LABS: OVALOCYTES SLIGHT
[2018-04-15] MEDS: MethylPREDNISolone 40 mg Vial IVP SCH (09:54)
[2018-04-15] MEDS: Pantoprazole 40 mg EC Tab PO SCH (09:54)
[2018-04-15] MEDS: Lidocaine 5% Patch TD SCH (09:54)
--- NOTE | 2018-04-15 12:50 | CP.PCM.PN ---
<Laura Valle - Last Filed: 04/15/18 13:27> Subjective - Date & Time of Evaluation Date of Evaluation: 04/15/18 Time of Evaluation: 11:00 - Subjective Subjective: PGY2 Progress Note Patient seen and examined at bedside. Patient's son is worried that she has been so different the past few weeks "quiet, tired, and her faculties are not there." Patient was able to state her name, that she is in [facility], the year, and the name of the President. Patient says she is overall not feeling well and that she is short of breath. Patient has a headache which she has been getting most days. Patient denies any chest pain, abdominal pain, nausea, vomiting. Objective - Vital Signs/Intake and Output Vital Signs (last 24 hours): Temp Pulse Resp BP Pulse Ox 97.2 F L 128 H 20 113/69 97 04/15/18 07:30 04/15/18 09:56 04/15/18 07:30 04/15/18 09:56 04/15/18 07:30 Intake and Output: 04/15/18 04/15/18 06:59 18:59 Intake Total 400 Output Total 800 Balance -400 - Medications Medications: Current Medications Acetaminophen (Tylenol 325mg Tab) 650 mg PO Q6 PRN PRN Reason: Fever >100.4 F Last Admin: 04/14/18 12:05 Dose: 650 mg Apixaban (Eliquis) 2.5 mg PO Q12 [facility] Last Admin: 04/15/18 09:52 Dose: 2.5 mg Diltiazem HCl (Cardizem Cd) 240 mg PO DAILY [facility] Last Admin: 04/15/18 09:52 Dose: 240 mg Docusate Sodium (Colace) 100 mg PO DAILY [facility] Last Admin: 04/15/18 09:52 Dose: 100 mg Folic Acid (Folic Acid) 1 mg PO DAILY [facility] Last Admin: 04/15/18 09:53 Dose: 1 mg Furosemide (Lasix) 20 mg PO DAILY [facility] Last Admin: 04/15/18 09:53 Dose: 20 mg Ipratropium [place] (Atrovent) 0.5 mg IH RQ6 [facility] Last Admin: 04/15/18 07:55 Dose: 0.5 mg Levothyroxine Sodium (Synthroid) 25 mcg PO DAILY@0630 [facility] Last Admin: 04/15/18 06:51 Dose: 25 mcg Lidocaine (Lidoderm) 1 ea TD DAILY [facility] Last Admin: 04/15/18 09:54 Dose: 1 ea Methylprednisolone (Solu-Medrol) 20 mg IVP Q12 [facility] Last Admin: 04/15/18 09:54 Dose: 20 mg Metoprolol Succinate (Toprol Xl) 50 mg PO DAILY [facility] Pantoprazole Sodium (Protonix Ec Tab) 40 mg PO DAILY [facility] Last Admin: 04/15/18 09:54 Dose: 40 mg - Labs Labs: 04/15/18 07:48 04/15/18 07:48 PT 14.9 SECONDS (9.7-12.2) H 04/10/18 06:32 INR 1.4 04/10/18 06:32 APTT 31 SECONDS (21-34) 04/10/18 06:32 - Constitutional Appears: Non-toxic, No Acute Distress - Head Exam Head Exam: ATRAUMATIC, NORMAL INSPECTION, NORMOCEPHALIC - Eye Exam Eye Exam: EOMI - ENT Exam ENT Exam: Mucous Membranes Moist - Respiratory Exam Respiratory Exam: Clear to Ausculation Bilateral, NORMAL BREATHING PATTERN. absent: Rales, Rhonchi, Wheezes, Respiratory Distress, Stridor - Cardiovascular Exam Cardiovascular Exam: Tachycardia, Irregular Rhythm, +S1, +S2 - GI/Abdominal Exam GI & Abdominal Exam: Soft, Normal Bowel Sounds. absent: Tenderness - Extremities Exam Extremities Exam: Normal Inspection. absent: Pedal Edema, Tenderness - Back Exam Back Exam: NORMAL INSPECTION - Neurological Exam Neurological Exam: Alert, Awake, Oriented x3 - Psychiatric Exam Psychiatric exam: Normal Affect, Normal Mood - Skin Skin Exam: Intact, Normal Color, Warm Assessment and Plan - Assessment and Plan (Free Text) Assessment: CHF exacerbation Echo (04/04/18): EF :44% mild to moderate left ventricular hypertrophy. Systolic function is mildly impaired. Septal hypokinesis. Moderate valvular aortic stenosis. Mitral regurg is moderate. Moderate tricuspid regurg. Mild pulmonary hypertension. -BNP 23,000 -lasix 20mg BID -solu-medrol 20mg ivp q12h -NC and BiPAP as needed A. Fib -Eliquis 2.5mg po q12h restarted on 04/07 -Metoprolol 50mg po daily -Cardizem 240mg po daily (started on 04/10) Right sided apical PNA - last dose of Primaxin completed on 04/12/18 - IDDr. Loredo is consulted Hypothyroidism -Synthroid 25mcg po daily Discussed with Dr. Gaitan <Kenny Gaitan - Last Filed: 04/15/18 21:18> Objective - Vital Signs/Intake and Output Vital Signs (last 24 hours): Temp Pulse Resp BP Pulse Ox 97.5 F L 83 18 105/68 96 04/15/18 15:00 04/15/18 16:00 04/15/18 15:00 04/15/18 15:00 04/15/18 15:00 Intake and Output: 04/15/18 04/16/18 18:59 06:59 Intake Total 400 Output Total 500 Balance -100 - Medications Medications: Current Medications Acetaminophen (Tylenol 325mg Tab) 650 mg PO Q6 PRN PRN Reason: Fever >100.4 F Last Admin: 04/15/18 14:09 Dose: 650 mg Apixaban (Eliquis) 2.5 mg PO Q12 [facility] Last Admin: 04/15/18 09:52 Dose: 2.5 mg Diltiazem HCl (Cardizem Cd) 240 mg PO DAILY [facility] Last Admin: 04/15/18 09:52 Dose: 240 mg Docusate Sodium (Colace) 100 mg PO DAILY [facility] Last Admin: 04/15/18 09:52 Dose: 100 mg Folic Acid (Folic Acid) 1 mg PO DAILY [facility] Last Admin: 04/15/18 09:53 Dose: 1 mg Furosemide (Lasix) 20 mg PO DAILY [facility] Last Admin: 04/15/18 09:53 Dose: 20 mg Ipratropium [place] (Atrovent) 0.5 mg IH RQ6 [facility] Last Admin: 04/15/18 19:45 Dose: 0.5 mg Levothyroxine Sodium (Synthroid) 25 mcg PO DAILY@0630 [facility] Last Admin: 04/15/18 06:51 Dose: 25 mcg Lidocaine (Lidoderm) 1 ea TD DAILY [facility] Last Admin: 04/15/18 09:54 Dose: 1 ea Methylprednisolone (Solu-Medrol) 20 mg IVP DAILY [facility] Metoprolol Succinate (Toprol Xl) 50 mg PO DAILY [facility] Nystatin (Nystatin Oral Susp) 5 ml PO QID [facility] Pantoprazole Sodium (Protonix Ec Tab) 40 mg PO DAILY [facility] Last Admin: 04/15/18 09:54 Dose: 40 mg - Labs Labs: 04/15/18 07:48 04/15/18 07:48 PT 14.9 SECONDS (9.7-12.2) H 04/10/18 06:32 INR 1.4 04/10/18 06:32 APTT 31 SECONDS (21-34) 04/10/18 06:32 Assessment and Plan - Assessment and Plan (Free Text) Assessment: Patient seen and evaluated personally by me Plan of care d/w the director global medical affairs and as documented
--- NOTE | 2018-04-15 17:59 | CP.PCM.PN ---
Subjective - Date & Time of Evaluation Date of Evaluation: 04/15/18 Time of Evaluation: 17:55 - Subjective Subjective: INFECTIOUS DISEASE 6T PROGRESS NOTES LUCITA WETZEL MD,FACP 668-B 04/15/2018 CHART REVIEWED PT EXAMINED CASE DISCUSSED CLINICALLY REMAINS STABLE OFF OF ALL ANTIBIOTICS AFTER 3 FULL DAYS OFF TREATMENT BREATHING ON NASAL CANULA, EATING BUT NOT HAPPY WITH HER HOSPITAL FOOD TODAY, ESPECIALLY TO FOLLOW PERIPHERALLY NEEDED. LUCITA WETZEL MD, FACP Objective - Vital Signs/Intake and Output Vital Signs (last 24 hours): Temp Pulse Resp BP Pulse Ox 97.5 F L 83 18 105/68 96 04/15/18 15:00 04/15/18 16:00 04/15/18 15:00 04/15/18 15:00 04/15/18 15:00 Intake and Output: 04/15/18 04/15/18 06:59 18:59 Intake Total 400 400 Output Total 800 500 Balance -400 -100 - Medications Medications: Current Medications Acetaminophen (Tylenol 325mg Tab) 650 mg PO Q6 PRN PRN Reason: Fever >100.4 F Last Admin: 04/15/18 14:09 Dose: 650 mg Apixaban (Eliquis) 2.5 mg PO Q12 [facility] Last Admin: 04/15/18 09:52 Dose: 2.5 mg Diltiazem HCl (Cardizem Cd) 240 mg PO DAILY [facility] Last Admin: 04/15/18 09:52 Dose: 240 mg Docusate Sodium (Colace) 100 mg PO DAILY [facility] Last Admin: 04/15/18 09:52 Dose: 100 mg Folic Acid (Folic Acid) 1 mg PO DAILY [facility] Last Admin: 04/15/18 09:53 Dose: 1 mg Furosemide (Lasix) 20 mg PO DAILY [facility] Last Admin: 04/15/18 09:53 Dose: 20 mg Ipratropium [place] (Atrovent) 0.5 mg IH RQ6 [facility] Last Admin: 04/15/18 11:30 Dose: 0.5 mg Levothyroxine Sodium (Synthroid) 25 mcg PO DAILY@0630 [facility] Last Admin: 04/15/18 06:51 Dose: 25 mcg Lidocaine (Lidoderm) 1 ea TD DAILY [facility] Last Admin: 04/15/18 09:54 Dose: 1 ea Methylprednisolone (Solu-Medrol) 20 mg IVP Q12 [facility] Last Admin: 04/15/18 09:54 Dose: 20 mg Metoprolol Succinate (Toprol Xl) 50 mg PO DAILY [facility] Pantoprazole Sodium (Protonix Ec Tab) 40 mg PO DAILY [facility] Last Admin: 04/15/18 09:54 Dose: 40 mg - Labs Labs: 04/15/18 07:48 04/15/18 07:48 PT 14.9 SECONDS (9.7-12.2) H 04/10/18 06:32 INR 1.4 04/10/18 06:32 APTT 31 SECONDS (21-34) 04/10/18 06:32 Assessment and Plan (1) Pancytopenia Status: Acute (2) HAP (hospital-acquired pneumonia) Status: Suspected (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
[2018-04-15] MEDS: Nystatin 100,000 Units/ml Oral Susp 5 ml UD PO SCH (21:32)
[2018-04-16] MEDS: Ipratropium 0.02% Inhal Soln (0.5 mg/2.5 ml) UD IH SCH ×4 (02:10→20:22)
[2018-04-16] MEDS ORDERED: Simethicone 80 mg Chewtab PO STA (03:44)
[2018-04-16] MEDS: Levothyroxine 25 MCG TAB PO SCH (05:55)
[2018-04-16] MEDS: Pantoprazole 40 mg EC Tab PO SCH (09:11)
[2018-04-16] MEDS: Nystatin 100,000 Units/ml Oral Susp 5 ml UD PO SCH ×4 (09:15→21:58)
[2018-04-16] MEDS: Lidocaine 5% Patch TD SCH (09:17)
[2018-04-16] MEDS: diltiaZEM 240 mg/24 Hours CD Cap PO SCH (09:17)
[2018-04-16] MEDS: MethylPREDNISolone 40 mg Vial IVP SCH (09:17)
[2018-04-16] MEDS ORDERED: Metoprolol Succinate 50 mg XL Tab PO SCH (10:00)
--- NOTE | 2018-04-16 11:15 | RAD ---
Date of service: 04/16/2018 HISTORY: Worsening cough and shortness of breath. COMPARISON: 04/12/2018 FINDINGS: LUNGS: Persistent pulmonary vascular congestion approximately stable compared to the prior study. PLEURA: No significant pleural effusion identified, no pneumothorax apparent. CARDIOVASCULAR: Cardiomegaly/mild CHF. Position/ configuration of pacemaker Mitral valve prosthesis identified adjacent to calcified mitral valve annulus. OSSEOUS STRUCTURES: No significant abnormalities. VISUALIZED UPPER ABDOMEN: Normal. OTHER FINDINGS: None. IMPRESSION: Stable pulmonary vascular congestion.
--- NOTE | 2018-04-16 11:42 | CP.PCM.PN ---
<Laura Valle - Last Filed: 04/16/18 17:04> Subjective - Date & Time of Evaluation Date of Evaluation: 04/16/18 Time of Evaluation: 11:00 - Subjective Subjective: PGY2- Progress Note for Dr. Gaitan Patient seen and examined at bedside and in no acute distress. Patient is complaining of a cough today. Patient has decreased appetite, but says she will try to eat more. Patient denies any chest pain, abdominal pain, nausea, vomiting , constipation, or diarrhea. Objective - Vital Signs/Intake and Output Vital Signs (last 24 hours): Temp Pulse Resp BP Pulse Ox 97.8 F 130 H 18 135/86 93 L 04/16/18 07:30 04/16/18 07:30 04/16/18 07:30 04/16/18 09:15 04/16/18 07:30 Intake and Output: 04/16/18 04/16/18 06:59 18:59 Intake Total 240 Output Total 700 Balance -460 - Medications Medications: Current Medications Acetaminophen (Tylenol 325mg Tab) 650 mg PO Q6 PRN PRN Reason: Fever >100.4 F Last Admin: 04/16/18 09:11 Dose: 650 mg Apixaban (Eliquis) 2.5 mg PO Q12 [facility] Last Admin: 04/16/18 09:17 Dose: 2.5 mg Diltiazem HCl (Cardizem Cd) 240 mg PO DAILY [facility] Last Admin: 04/16/18 09:17 Dose: 240 mg Docusate Sodium (Colace) 100 mg PO DAILY [facility] Last Admin: 04/16/18 09:17 Dose: 100 mg Folic Acid (Folic Acid) 1 mg PO DAILY [facility] Last Admin: 04/16/18 09:10 Dose: 1 mg Furosemide (Lasix) 20 mg PO DAILY [facility] Last Admin: 04/16/18 09:15 Dose: 20 mg Ipratropium [place] (Atrovent) 0.5 mg IH RQ6 [facility] Last Admin: 04/16/18 07:30 Dose: 0.5 mg Levothyroxine Sodium (Synthroid) 25 mcg PO DAILY@0630 [facility] Last Admin: 04/16/18 05:55 Dose: 25 mcg Lidocaine (Lidoderm) 1 ea TD DAILY [facility] Last Admin: 04/16/18 09:17 Dose: 1 ea Methylprednisolone (Solu-Medrol) 20 mg IVP DAILY [facility] Last Admin: 04/16/18 09:17 Dose: 20 mg Metoprolol Succinate (Toprol Xl) 50 mg PO DAILY [facility] Last Admin: 04/16/18 09:15 Dose: 50 mg Nystatin (Nystatin Oral Susp) 5 ml PO QID [facility] Last Admin: 04/16/18 09:15 Dose: 5 ml Pantoprazole Sodium (Protonix Ec Tab) 40 mg PO DAILY [facility] Last Admin: 04/16/18 09:11 Dose: 40 mg - Labs Labs: 04/15/18 07:48 04/15/18 07:48 PT 14.9 SECONDS (9.7-12.2) H 04/10/18 06:32 INR 1.4 04/10/18 06:32 APTT 31 SECONDS (21-34) 04/10/18 06:32 - Additional Findings Additional findings: - Constitutional Appears: Non-toxic, No Acute Distress - Head Exam Head Exam: ATRAUMATIC, NORMAL INSPECTION, NORMOCEPHALIC - Eye Exam Eye Exam: EOMI - ENT Exam ENT Exam: Mucous Membranes Moist - Respiratory Exam Respiratory Exam: Clear to Ausculation Bilateral, NORMAL BREATHING PATTERN. absent: Rales, Rhonchi, Wheezes, Respiratory Distress, Stridor - Cardiovascular Exam Cardiovascular Exam: Tachycardia, Irregular Rhythm, +S1, +S2 - GI/Abdominal Exam GI & Abdominal Exam: Soft, Normal Bowel Sounds. absent: Tenderness - Extremities Exam Extremities Exam: Normal Inspection. absent: Pedal Edema, Tenderness - Back Exam Back Exam: NORMAL INSPECTION - Neurological Exam Neurological Exam: Alert, Awake, Oriented x3 - Psychiatric Exam Psychiatric exam: Normal Affect, Normal Mood - Skin Skin Exam: Intact, Normal Color, Warm Assessment and Plan - Assessment and Plan (Free Text) Assessment: CHF exacerbation Echo (04/04/18): EF :44% mild to moderate left ventricular hypertrophy. Systolic function is mildly impaired. Septal hypokinesis. Moderate valvular aortic stenosis. Mitral regurg is moderate. Moderate tricuspid regurg. Mild pulmonary hypertension. Cxray (04/16/18): persistent pulmonary vascular congestion approximately stable compared to prior study. -BNP 23,000 -repeat BNP ordered on 04/16 -Lasix 20mg iv (changed from PO on 04/16) -solu-medrol 20mg ivp daily -NC A. Fib -Eliquis 2.5mg po q12h restarted on 04/07 -Metoprolol 50mg po daily -Cardizem 240mg po daily (started on 04/10) Right sided apical PNA - last dose of Primaxin completed on 04/12/18 - Dr. Gertrude FARNSWORTH is consulted Hypothyroidism -Synthroid 25mcg po daily Discussed with Dr. Gaitan <Kenny Gaitan - Last Filed: 04/16/18 22:03> Objective - Vital Signs/Intake and Output Vital Signs (last 24 hours): Temp Pulse Resp BP Pulse Ox 97.3 F L 105 H 20 115/83 98 04/16/18 15:00 04/16/18 16:00 04/16/18 15:00 04/16/18 16:58 04/16/18 15:00 Intake and Output: 04/16/18 04/17/18 18:59 06:59 Output Total 650 Balance -650 - Medications Medications: Current Medications Acetaminophen (Tylenol 325mg Tab) 650 mg PO Q6 PRN PRN Reason: Fever >100.4 F Last Admin: 04/16/18 09:11 Dose: 650 mg Apixaban (Eliquis) 2.5 mg PO Q12 [facility] Last Admin: 04/16/18 21:57 Dose: 2.5 mg Diltiazem HCl (Cardizem Cd) 240 mg PO DAILY [facility] Last Admin: 04/16/18 09:17 Dose: 240 mg Docusate Sodium (Colace) 100 mg PO DAILY [facility] Last Admin: 04/16/18 09:17 Dose: 100 mg Folic Acid (Folic Acid) 1 mg PO DAILY [facility] Last Admin: 04/16/18 09:10 Dose: 1 mg Furosemide (Lasix) 20 mg IVP DAILY [facility] Last Admin: 04/16/18 16:58 Dose: 20 mg Ipratropium [place] (Atrovent) 0.5 mg IH RQ6 [facility] Last Admin: 04/16/18 20:22 Dose: 0.5 mg Levothyroxine Sodium (Synthroid) 25 mcg PO DAILY@0630 [facility] Last Admin: 04/16/18 05:55 Dose: 25 mcg Lidocaine (Lidoderm) 1 ea TD DAILY [facility] Last Admin: 04/16/18 09:17 Dose: 1 ea Methylprednisolone (Solu-Medrol) 20 mg IVP DAILY [facility] Last Admin: 04/16/18 09:17 Dose: 20 mg Metoprolol Tartrate (Lopressor) 50 mg PO BID [facility] Last Admin: 04/16/18 21:57 Dose: 50 mg Nystatin (Nystatin Oral Susp) 5 ml PO QID [facility] Last Admin: 04/16/18 21:58 Dose: 5 ml Pantoprazole Sodium (Protonix Ec Tab) 40 mg PO DAILY [facility] Last Admin: 04/16/18 09:11 Dose: 40 mg - Labs Labs: 04/15/18 07:48 04/15/18 07:48 PT 14.9 SECONDS (9.7-12.2) H 04/10/18 06:32 INR 1.4 04/10/18 06:32 APTT 31 SECONDS (21-34) 04/10/18 06:32 Assessment and Plan - Assessment and Plan (Free Text) Assessment: Patient seen and evaluated personally by me Plan of d/w the medical claims analyst and as documented
--- NOTE | 2018-04-16 19:14 | CP.PCM.PN ---
Subjective - Date & Time of Evaluation Date of Evaluation: 04/16/18 Time of Evaluation: 14:00 - Subjective Subjective: No complaints. Objective - Vital Signs/Intake and Output Vital Signs (last 24 hours): Temp Pulse Resp BP Pulse Ox 97.3 F L 105 H 20 115/83 98 04/16/18 15:00 04/16/18 16:00 04/16/18 15:00 04/16/18 16:58 04/16/18 15:00 - Medications Medications: Current Medications Acetaminophen (Tylenol 325mg Tab) 650 mg PO Q6 PRN PRN Reason: Fever >100.4 F Last Admin: 04/16/18 09:11 Dose: 650 mg Apixaban (Eliquis) 2.5 mg PO Q12 [facility] Last Admin: 04/16/18 09:17 Dose: 2.5 mg Diltiazem HCl (Cardizem Cd) 240 mg PO DAILY [facility] Last Admin: 04/16/18 09:17 Dose: 240 mg Docusate Sodium (Colace) 100 mg PO DAILY [facility] Last Admin: 04/16/18 09:17 Dose: 100 mg Folic Acid (Folic Acid) 1 mg PO DAILY [facility] Last Admin: 04/16/18 09:10 Dose: 1 mg Furosemide (Lasix) 20 mg IVP DAILY [facility] Last Admin: 04/16/18 16:58 Dose: 20 mg Ipratropium [place] (Atrovent) 0.5 mg IH RQ6 [facility] Last Admin: 04/16/18 14:02 Dose: 0.5 mg Levothyroxine Sodium (Synthroid) 25 mcg PO DAILY@0630 [facility] Last Admin: 04/16/18 05:55 Dose: 25 mcg Lidocaine (Lidoderm) 1 ea TD DAILY [facility] Last Admin: 04/16/18 09:17 Dose: 1 ea Methylprednisolone (Solu-Medrol) 20 mg IVP DAILY [facility] Last Admin: 04/16/18 09:17 Dose: 20 mg Metoprolol Succinate (Toprol Xl) 50 mg PO DAILY [facility] Last Admin: 04/16/18 09:15 Dose: 50 mg Nystatin (Nystatin Oral Susp) 5 ml PO QID [facility] Last Admin: 04/16/18 17:58 Dose: 5 ml Pantoprazole Sodium (Protonix Ec Tab) 40 mg PO DAILY [facility] Last Admin: 04/16/18 09:11 Dose: 40 mg - Labs Labs: 04/15/18 07:48 04/15/18 07:48 PT 14.9 SECONDS (9.7-12.2) H 04/10/18 06:32 INR 1.4 04/10/18 06:32 APTT 31 SECONDS (21-34) 04/10/18 06:32 - Head Exam Head Exam: ATRAUMATIC - Eye Exam Eye Exam: Normal appearance - ENT Exam ENT Exam: Mucous Membranes Dry - Respiratory Exam Respiratory Exam: NORMAL BREATHING PATTERN - Cardiovascular Exam Cardiovascular Exam: +S1, +S2 - GI/Abdominal Exam GI & Abdominal Exam: Normal Bowel Sounds Assessment and Plan (1) Anemia Assessment & Plan: chronic disease, mild CKD no iron/b12/folate deficiency haptoglobin not decreased; not hemolysis ? intermittent GI blood loss no evidence of bone marrow pathology Status: Acute (2) Thrombocytopenia Assessment & Plan: mild improved no bone marrow pathology Status: Acute
--- NOTE | 2018-04-16 20:04 | CP.PCM.PN ---
Subjective - Date & Time of Evaluation Date of Evaluation: 04/16/18 Time of Evaluation: 20:03 - Subjective Subjective: Overall patient is not feeling well. But vital signs better than in the past. Oxygen saturation is better. Less cough noted. Generalized weakness noted. Denies any nausea, no vomiting, poor intake present, but had a BM yesterday. Vital signs stable otherwise Chest good air entry Regular heart sounds Nontender abdomen. Pedal edema noted. 87-year-old female with anemia. Atrial fibrillation, status post AVR 2. Aspiration pneumonia, respiratory failure, currently doing well. Continue the physical therapy. Once clinically stable discharge possible. Today's chest x-ray showing no evidence of any acute infiltrate, mild vascular congestion Objective - Vital Signs/Intake and Output Vital Signs (last 24 hours): Temp Pulse Resp BP Pulse Ox 97.3 F L 105 H 20 115/83 98 04/16/18 15:00 04/16/18 16:00 04/16/18 15:00 04/16/18 16:58 04/16/18 15:00 Intake and Output: 04/16/18 04/17/18 18:59 06:59 Output Total 500 Balance -500 - Medications Medications: Current Medications Acetaminophen (Tylenol 325mg Tab) 650 mg PO Q6 PRN PRN Reason: Fever >100.4 F Last Admin: 04/16/18 09:11 Dose: 650 mg Apixaban (Eliquis) 2.5 mg PO Q12 [facility] Last Admin: 04/16/18 09:17 Dose: 2.5 mg Diltiazem HCl (Cardizem Cd) 240 mg PO DAILY [facility] Last Admin: 04/16/18 09:17 Dose: 240 mg Docusate Sodium (Colace) 100 mg PO DAILY [facility] Last Admin: 04/16/18 09:17 Dose: 100 mg Folic Acid (Folic Acid) 1 mg PO DAILY [facility] Last Admin: 04/16/18 09:10 Dose: 1 mg Furosemide (Lasix) 20 mg IVP DAILY [facility] Last Admin: 04/16/18 16:58 Dose: 20 mg Ipratropium [place] (Atrovent) 0.5 mg IH RQ6 [facility] Last Admin: 04/16/18 14:02 Dose: 0.5 mg Levothyroxine Sodium (Synthroid) 25 mcg PO DAILY@0630 [facility] Last Admin: 04/16/18 05:55 Dose: 25 mcg Lidocaine (Lidoderm) 1 ea TD DAILY [facility] Last Admin: 04/16/18 09:17 Dose: 1 ea Methylprednisolone (Solu-Medrol) 20 mg IVP DAILY [facility] Last Admin: 04/16/18 09:17 Dose: 20 mg Metoprolol Succinate (Toprol Xl) 50 mg PO DAILY [facility] Last Admin: 04/16/18 09:15 Dose: 50 mg Nystatin (Nystatin Oral Susp) 5 ml PO QID [facility] Last Admin: 04/16/18 17:58 Dose: 5 ml Pantoprazole Sodium (Protonix Ec Tab) 40 mg PO DAILY [facility] Last Admin: 04/16/18 09:11 Dose: 40 mg - Labs Labs: 04/15/18 07:48 04/15/18 07:48 PT 14.9 SECONDS (9.7-12.2) H 04/10/18 06:32 INR 1.4 04/10/18 06:32 APTT 31 SECONDS (21-34) 04/10/18 06:32
[2018-04-17] MEDS: Ipratropium 0.02% Inhal Soln (0.5 mg/2.5 ml) UD IH SCH ×4 (01:18→19:08)
[2018-04-17 06:32] LABS: BASO % 0.2 % (0.0-2.0); EOS % 0.3 % (0.0-4.0); HEMOGLOBIN 11.5 g/dL (11.0-16.0); LYMPH # 0.6 K/uL (1.0-4.3); LYMPH % 4.7 % (20.0-40.0); MEAN CELL VOLUME 83.1 fL (81.0-99.0); MEAN CORPUSCULAR HEMOGLOBIN 26.6 pg (27.0-31.0); MEAN PLATELET VOLUME 8.5 fL (7.2-11.7); MONO # 1.1 K/uL (0.0-0.8); NEUT # 10.8 K/uL (1.8-7.0); NEUT % 85.8 % (50.0-75.0); PLATELET COUNT 177 K/uL (130-400); RBC 4.33 Mil/uL (3.80-5.20); RED CELL DISTRIBUTION WIDTH 19.8 % (11.5-14.5); WHITE BLOOD COUNT 12.6 K/uL (4.8-10.8)
[2018-04-17] MEDS: Levothyroxine 25 MCG TAB PO SCH (06:44)
[2018-04-17 06:59] LABS: ALB/GLOB RATIO 1.2 (1.0-2.1); ALBUMIN 3.1 g/dL (3.5-5.0); ALT/SGPT 68 U/L (9-52); AST/SGOT 40 U/L (14-36); BLOOD UREA NITROGEN 37 mg/dL (7-17); CALCIUM 8.6 mg/dl (8.6-10.4); GFR AFRICAN-AMERICAN > 60; GFR NON-AFRICAN AMERICAN 59
[2018-04-17 08:37] LABS: ANISOCYTOSIS SLIGHT; EOSINOPHIL 1 % (0-4); HYPOCHROMIC SLIGHT; LYMPHOCYTE 3 % (20-40); MONOCYTE 9 % (0-10); NEUTROPHIL 87 % (50-75); PLATELET ESTIMATE NORMAL (NORMAL); POLYCHROMIC SLIGHT; TOTAL CELLS COUNTED 100
[2018-04-17] MEDS: Nystatin 100,000 Units/ml Oral Susp 5 ml UD PO SCH ×4 (10:46→21:13)
[2018-04-17] MEDS: Pantoprazole 40 mg EC Tab PO SCH (10:46)
[2018-04-17] MEDS: Lidocaine 5% Patch TD SCH (10:49)
[2018-04-17] MEDS: diltiaZEM 240 mg/24 Hours CD Cap PO SCH (10:49)
[2018-04-17] MEDS: MethylPREDNISolone 40 mg Vial IVP SCH (10:50)
--- NOTE | 2018-04-17 12:26 | CP.PCM.PN ---
<Laura Valle - Last Filed: 04/17/18 13:52> Subjective - Date & Time of Evaluation Date of Evaluation: 04/17/18 Time of Evaluation: 11:30 - Subjective Subjective: PGY2- Progress Note for Dr. Gaitan Patient seen and examined sitting in chair. Patient is feeling much better. Patient had an episode of coughing and choking last night and was suctioned. Patient says after this episode she feels so much better. Her voice is no longer hoarse and her appetite has returned. Patient is in very good spirits. Patient denies any chest pain, abdominal pain, nausea, vomiting, constipation, or diarrhea. Objective - Vital Signs/Intake and Output Vital Signs (last 24 hours): Temp Pulse Resp BP Pulse Ox 97.4 F L 88 20 118/77 100 04/17/18 08:00 04/17/18 08:00 04/17/18 08:00 04/17/18 10:49 04/17/18 08:00 Intake and Output: 04/17/18 04/17/18 06:59 18:59 Output Total 850 Balance -850 - Medications Medications: Current Medications Acetaminophen (Tylenol 325mg Tab) 650 mg PO Q6 PRN PRN Reason: Fever >100.4 F Last Admin: 04/16/18 09:11 Dose: 650 mg Apixaban (Eliquis) 2.5 mg PO Q12 [facility] Last Admin: 04/17/18 10:46 Dose: 2.5 mg Diltiazem HCl (Cardizem Cd) 240 mg PO DAILY [facility] Last Admin: 04/17/18 10:49 Dose: 240 mg Docusate Sodium (Colace) 100 mg PO DAILY [facility] Last Admin: 04/17/18 10:46 Dose: 100 mg Folic Acid (Folic Acid) 1 mg PO DAILY [facility] Last Admin: 04/17/18 10:46 Dose: 1 mg Furosemide (Lasix) 20 mg IVP DAILY [facility] Last Admin: 04/17/18 10:49 Dose: 20 mg Ipratropium [place] (Atrovent) 0.5 mg IH RQ6 [facility] Last Admin: 04/17/18 07:45 Dose: 0.5 mg Levothyroxine Sodium (Synthroid) 25 mcg PO DAILY@0630 [facility] Last Admin: 04/17/18 06:44 Dose: 25 mcg Lidocaine (Lidoderm) 1 ea TD DAILY [facility] Last Admin: 04/17/18 10:49 Dose: 1 ea Methylprednisolone (Solu-Medrol) 20 mg IVP DAILY [facility] Last Admin: 04/17/18 10:50 Dose: 20 mg Metoprolol Tartrate (Lopressor) 50 mg PO BID [facility] Last Admin: 04/17/18 10:49 Dose: 50 mg Nystatin (Nystatin Oral Susp) 5 ml PO QID [facility] Last Admin: 04/17/18 10:46 Dose: 5 ml Pantoprazole Sodium (Protonix Ec Tab) 40 mg PO DAILY [facility] Last Admin: 04/17/18 10:46 Dose: 40 mg - Labs Labs: 04/17/18 06:21 04/17/18 06:21 PT 14.9 SECONDS (9.7-12.2) H 04/10/18 06:32 INR 1.4 04/10/18 06:32 APTT 31 SECONDS (21-34) 04/10/18 06:32 - Additional Findings Additional findings: - Constitutional Appears: Non-toxic, No Acute Distress - Head Exam Head Exam: ATRAUMATIC, NORMAL INSPECTION, NORMOCEPHALIC - Eye Exam Eye Exam: EOMI - ENT Exam ENT Exam: Mucous Membranes Moist - Respiratory Exam Respiratory Exam: Clear to Ausculation Bilateral, NORMAL BREATHING PATTERN. absent: Rales, Rhonchi, Wheezes, Respiratory Distress, Stridor - Cardiovascular Exam Cardiovascular Exam: Tachycardia, Irregular Rhythm, +S1, +S2 - GI/Abdominal Exam GI & Abdominal Exam: Soft, Normal Bowel Sounds. absent: Tenderness - Extremities Exam Extremities Exam: Normal Inspection. absent: Pedal Edema, Tenderness - Back Exam Back Exam: NORMAL INSPECTION - Neurological Exam Neurological Exam: Alert, Awake, Oriented x3 - Psychiatric Exam Psychiatric exam: Normal Affect, Normal Mood - Skin Skin Exam: Intact, Normal Color, Warm Assessment and Plan - Assessment and Plan (Free Text) Assessment: CHF exacerbation Echo (04/04/18): EF :44% mild to moderate left ventricular hypertrophy. Systolic function is mildly impaired. Septal hypokinesis. Moderate valvular aortic stenosis. Mitral regurg is moderate. Moderate tricuspid regurg. Mild pulmonary hypertension. Cxray (04/16/18): persistent pulmonary vascular congestion approximately stable compared to prior study. -BNP 23,000 -repeat BNP on 04/16: [id number] -Lasix 20mg iv (changed from PO on 04/16) -solu-medrol 20mg ivp daily -NC A. Fib -Eliquis 2.5mg po q12h restarted on 04/07 -Metoprolol Tartrate 50mg po BID (changed from metoprolol succinate on 04/16) -Cardizem 240mg po daily (started on 04/10) Right sided apical PNA - last dose of Primaxin completed on 04/12/18 - Dr. Gertrude FARNSWORTH is consulted Hypothyroidism -Synthroid 25mcg po daily Discussed with Dr. Gaitan <Kenny Gaitan - Last Filed: 04/17/18 21:43> Objective - Vital Signs/Intake and Output Vital Signs (last 24 hours): Temp Pulse Resp BP Pulse Ox 97.3 F L 82 18 101/66 99 04/17/18 15:00 04/17/18 17:59 04/17/18 15:00 04/17/18 17:59 04/17/18 15:00 - Medications Medications: Current Medications Acetaminophen (Tylenol 325mg Tab) 650 mg PO Q6 PRN PRN Reason: Fever >100.4 F Last Admin: 04/16/18 09:11 Dose: 650 mg Apixaban (Eliquis) 2.5 mg PO Q12 [facility] Last Admin: 04/17/18 21:13 Dose: 2.5 mg Diltiazem HCl (Cardizem Cd) 240 mg PO DAILY [facility] Last Admin: 04/17/18 10:49 Dose: 240 mg Docusate Sodium (Colace) 100 mg PO DAILY [facility] Last Admin: 04/17/18 10:46 Dose: 100 mg Folic Acid (Folic Acid) 1 mg PO DAILY [facility] Last Admin: 04/17/18 10:46 Dose: 1 mg Furosemide (Lasix) 20 mg IVP DAILY [facility] Last Admin: 04/17/18 10:49 Dose: 20 mg Ipratropium [place] (Atrovent) 0.5 mg IH RQ6 [facility] Last Admin: 04/17/18 19:08 Dose: 0.5 mg Levothyroxine Sodium (Synthroid) 25 mcg PO DAILY@0630 [facility] Last Admin: 04/17/18 06:44 Dose: 25 mcg Lidocaine (Lidoderm) 1 ea TD DAILY [facility] Last Admin: 04/17/18 10:49 Dose: 1 ea Methylprednisolone (Solu-Medrol) 20 mg IVP DAILY [facility] Last Admin: 04/17/18 10:50 Dose: 20 mg Metoprolol Tartrate (Lopressor) 50 mg PO BID [facility] Last Admin: 04/17/18 17:54 Dose: Not Given Nystatin (Nystatin Oral Susp) 5 ml PO QID [facility] Last Admin: 04/17/18 21:13 Dose: 5 ml Pantoprazole Sodium (Protonix Ec Tab) 40 mg PO DAILY [facility] Last Admin: 04/17/18 10:46 Dose: 40 mg - Labs Labs: 04/17/18 06:21 04/17/18 06:21 PT 14.9 SECONDS (9.7-12.2) H 04/10/18 06:32 INR 1.4 04/10/18 06:32 APTT 31 SECONDS (21-34) 04/10/18 06:32 Assessment and Plan - Assessment and Plan (Free Text) Assessment: Patient seen and evaluated personally by mt Plan of care d/w the medical research scientist and as documented
[2018-04-18] MEDS: Ipratropium 0.02% Inhal Soln (0.5 mg/2.5 ml) UD IH SCH ×4 (01:23→19:01)
[2018-04-18 04:44] VITALS: RESP 20
[2018-04-18] MEDS: Levothyroxine 25 MCG TAB PO SCH (05:33)
[2018-04-18] MEDS: Nystatin 100,000 Units/ml Oral Susp 5 ml UD PO SCH ×4 (09:34→21:32)
[2018-04-18] MEDS: Lidocaine 5% Patch TD SCH (09:34)
[2018-04-18] MEDS: Pantoprazole 40 mg EC Tab PO SCH (09:34)
[2018-04-18] MEDS: MethylPREDNISolone 40 mg Vial IVP SCH (09:35)
[2018-04-18] MEDS: diltiaZEM 240 mg/24 Hours CD Cap PO SCH (09:35)
--- NOTE | 2018-04-18 13:06 | CP.PCM.PN ---
Subjective - Date & Time of Evaluation Date of Evaluation: 04/06/18 Time of Evaluation: 13:06 - Subjective Subjective: Patient is currently on BiPAP. Oxygen is better. Tachycardia noted. She has no nausea vomiting. But weakness present. On examination: Pulse is 126, respiration 26, blood pressure 120/79 saturation 95% labs reviewed Hemoglobin 10.3. Vital signs otherwise nonspecific. Clinical examination respiratory distress noted Assessment and recommendation: Patient 87-year-old female with a history of A. fib, CAD, status post stent, hypertension, pacemaker, aortic valve replacement 2. Admitted with a possible pneumonia. On antibiotic. Atrial fibrillation and a rapid ventricular rate. Congestive heart failure, improving at this time. Continue the supportive treatment, spoke to the family. Critical condition, will follow the patient Objective - Vital Signs/Intake and Output Vital Signs (last 24 hours): Temp Pulse Resp BP Pulse Ox 98 F 100 H 20 105/77 99 04/18/18 07:00 04/18/18 07:00 04/18/18 07:00 04/18/18 10:39 04/18/18 07:00 Intake and Output: 04/18/18 04/18/18 06:59 18:59 Intake Total 240 Output Total 500 Balance -260 - Medications Medications: Current Medications Acetaminophen (Tylenol 325mg Tab) 650 mg PO Q6 PRN PRN Reason: Fever >100.4 F Last Admin: 04/16/18 09:11 Dose: 650 mg Apixaban (Eliquis) 2.5 mg PO Q12 [facility] Last Admin: 04/18/18 09:34 Dose: 2.5 mg Diltiazem HCl (Cardizem Cd) 240 mg PO DAILY [facility] Last Admin: 04/18/18 09:35 Dose: 240 mg Docusate Sodium (Colace) 100 mg PO DAILY [facility] Last Admin: 04/18/18 09:39 Dose: 100 mg Folic Acid (Folic Acid) 1 mg PO DAILY [facility] Last Admin: 04/18/18 09:34 Dose: 1 mg Furosemide (Lasix) 20 mg IVP DAILY [facility] Last Admin: 04/18/18 09:35 Dose: 20 mg Ipratropium [place] (Atrovent) 0.5 mg IH RQ6 [facility] Last Admin: 04/18/18 07:36 Dose: 0.5 mg Levothyroxine Sodium (Synthroid) 25 mcg PO DAILY@0630 [facility] Last Admin: 04/18/18 05:33 Dose: 25 mcg Lidocaine (Lidoderm) 1 ea TD DAILY [facility] Last Admin: 04/18/18 09:34 Dose: 1 ea Methylprednisolone (Solu-Medrol) 20 mg IVP DAILY [facility] Last Admin: 04/18/18 09:35 Dose: 20 mg Metoprolol Tartrate (Lopressor) 50 mg PO BID [facility] Last Admin: 04/18/18 10:38 Dose: 50 mg Nystatin (Nystatin Oral Susp) 5 ml PO QID [facility] Last Admin: 04/18/18 09:34 Dose: 5 ml Pantoprazole Sodium (Protonix Ec Tab) 40 mg PO DAILY [facility] Last Admin: 04/18/18 09:34 Dose: 40 mg - Labs Labs: 04/17/18 06:21 04/17/18 06:21 PT 14.9 SECONDS (9.7-12.2) H 04/10/18 06:32 INR 1.4 04/10/18 06:32 APTT 31 SECONDS (21-34) 04/10/18 06:32
--- NOTE | 2018-04-18 13:15 | CP.PCM.PN ---
Subjective - Date & Time of Evaluation Date of Evaluation: 04/15/18 Time of Evaluation: 13:15 - Subjective Subjective: Patient is now sitting up in the chair. Having some difficulty in going to the bathroom. No nausea vomiting noted. Physical therapy on On examination: Vital signs stable chest good air entry, tachycardia noted Patient is currently feeling slightly better. But her eating is very slow 87-year-old female with a history of CAD, stent, hypertension, atrial fibrillation, aortic valve replacement. Admitted with pneumonia, respiratory failure, rapid ventricular rate. Also patient has anemia. Nonspecific. Continue the current treatment. Objective - Vital Signs/Intake and Output Vital Signs (last 24 hours): Temp Pulse Resp BP Pulse Ox 98 F 100 H 20 105/77 99 04/18/18 07:00 04/18/18 07:00 04/18/18 07:00 04/18/18 10:39 04/18/18 07:00 Intake and Output: 04/18/18 04/18/18 06:59 18:59 Intake Total 240 Output Total 500 Balance -260 - Medications Medications: Current Medications Acetaminophen (Tylenol 325mg Tab) 650 mg PO Q6 PRN PRN Reason: Fever >100.4 F Last Admin: 04/16/18 09:11 Dose: 650 mg Apixaban (Eliquis) 2.5 mg PO Q12 [facility] Last Admin: 04/18/18 09:34 Dose: 2.5 mg Diltiazem HCl (Cardizem Cd) 240 mg PO DAILY [facility] Last Admin: 04/18/18 09:35 Dose: 240 mg Docusate Sodium (Colace) 100 mg PO DAILY [facility] Last Admin: 04/18/18 09:39 Dose: 100 mg Folic Acid (Folic Acid) 1 mg PO DAILY [facility] Last Admin: 04/18/18 09:34 Dose: 1 mg Furosemide (Lasix) 20 mg IVP DAILY [facility] Last Admin: 04/18/18 09:35 Dose: 20 mg Ipratropium [place] (Atrovent) 0.5 mg IH RQ6 [facility] Last Admin: 04/18/18 07:36 Dose: 0.5 mg Levothyroxine Sodium (Synthroid) 25 mcg PO DAILY@0630 [facility] Last Admin: 04/18/18 05:33 Dose: 25 mcg Lidocaine (Lidoderm) 1 ea TD DAILY [facility] Last Admin: 04/18/18 09:34 Dose: 1 ea Methylprednisolone (Solu-Medrol) 20 mg IVP DAILY [facility] Last Admin: 04/18/18 09:35 Dose: 20 mg Metoprolol Tartrate (Lopressor) 50 mg PO BID [facility] Last Admin: 04/18/18 10:38 Dose: 50 mg Nystatin (Nystatin Oral Susp) 5 ml PO QID [facility] Last Admin: 04/18/18 09:34 Dose: 5 ml Pantoprazole Sodium (Protonix Ec Tab) 40 mg PO DAILY [facility] Last Admin: 04/18/18 09:34 Dose: 40 mg - Labs Labs: 04/17/18 06:21 04/17/18 06:21 PT 14.9 SECONDS (9.7-12.2) H 04/10/18 06:32 INR 1.4 04/10/18 06:32 APTT 31 SECONDS (21-34) 04/10/18 06:32
--- NOTE | 2018-04-18 13:19 | CP.PCM.PN ---
Subjective - Date & Time of Evaluation Date of Evaluation: 04/17/18 Time of Evaluation: 13:18 - Subjective Subjective: The patient was sitting up in the chair. She was complaining of leg swelling. She did not have any chest pain. Cough minimally noted. She is able to eat slightly better Patient did physical therapy, able to walk a few steps. On examination vital signs stable. Mild tachycardia noted. The metoprolol was changed Chest good air entry Regular heart sounds nontender abdomen extremities 1+-2+ pedal edema Labs reviewed I spoke to the patient's family in detail. Family does not want her to go to rehabilitation. She wanted to get home. Patient will need extensive help in the house. Discussed with the family about that, will continue the therapy. Objective - Vital Signs/Intake and Output Vital Signs (last 24 hours): Temp Pulse Resp BP Pulse Ox 98 F 100 H 20 105/77 99 04/18/18 07:00 04/18/18 07:00 04/18/18 07:00 04/18/18 10:39 04/18/18 07:00 Intake and Output: 04/18/18 04/18/18 06:59 18:59 Intake Total 240 Output Total 500 Balance -260 - Medications Medications: Current Medications Acetaminophen (Tylenol 325mg Tab) 650 mg PO Q6 PRN PRN Reason: Fever >100.4 F Last Admin: 04/16/18 09:11 Dose: 650 mg Apixaban (Eliquis) 2.5 mg PO Q12 [facility] Last Admin: 04/18/18 09:34 Dose: 2.5 mg Diltiazem HCl (Cardizem Cd) 240 mg PO DAILY [facility] Last Admin: 04/18/18 09:35 Dose: 240 mg Docusate Sodium (Colace) 100 mg PO DAILY [facility] Last Admin: 04/18/18 09:39 Dose: 100 mg Folic Acid (Folic Acid) 1 mg PO DAILY [facility] Last Admin: 04/18/18 09:34 Dose: 1 mg Furosemide (Lasix) 20 mg IVP DAILY [facility] Last Admin: 04/18/18 09:35 Dose: 20 mg Ipratropium [place] (Atrovent) 0.5 mg IH RQ6 [facility] Last Admin: 04/18/18 07:36 Dose: 0.5 mg Levothyroxine Sodium (Synthroid) 25 mcg PO DAILY@0630 [facility] Last Admin: 04/18/18 05:33 Dose: 25 mcg Lidocaine (Lidoderm) 1 ea TD DAILY [facility] Last Admin: 04/18/18 09:34 Dose: 1 ea Methylprednisolone (Solu-Medrol) 20 mg IVP DAILY [facility] Last Admin: 04/18/18 09:35 Dose: 20 mg Metoprolol Tartrate (Lopressor) 50 mg PO BID [facility] Last Admin: 04/18/18 10:38 Dose: 50 mg Nystatin (Nystatin Oral Susp) 5 ml PO QID [facility] Last Admin: 04/18/18 09:34 Dose: 5 ml Pantoprazole Sodium (Protonix Ec Tab) 40 mg PO DAILY [facility] Last Admin: 04/18/18 09:34 Dose: 40 mg - Labs Labs: 04/17/18 06:21 04/17/18 06:21 PT 14.9 SECONDS (9.7-12.2) H 04/10/18 06:32 INR 1.4 04/10/18 06:32 APTT 31 SECONDS (21-34) 04/10/18 06:32
--- NOTE | 2018-04-18 13:20 | CP.PCM.PN ---
Subjective - Date & Time of Evaluation Date of Evaluation: 04/18/18 Time of Evaluation: 13:19 - Subjective Subjective: The patient was sitting up in the chair. She was complaining of leg swelling. She did not have any chest pain. Cough minimally noted. She is able to eat slightly better Patient did physical therapy, able to walk a few steps. On examination vital signs stable. Mild tachycardia noted. The metoprolol was changed Chest good air entry Regular heart sounds nontender abdomen extremities 1+-2+ pedal edema Labs reviewed I spoke to the patient's family in detail. Family does not want her to go to rehabilitation. She wanted to get home. Patient will need extensive help in the house. Discussed with the family about that, will continue the therapy. Spoke to the son today again. We will continue the current treatment. Physical therapy. We will follow-up the patient Objective - Vital Signs/Intake and Output Vital Signs (last 24 hours): Temp Pulse Resp BP Pulse Ox 98 F 100 H 20 105/77 99 04/18/18 07:00 04/18/18 07:00 04/18/18 07:00 04/18/18 10:39 04/18/18 07:00 Intake and Output: 04/18/18 04/18/18 06:59 18:59 Intake Total 240 Output Total 500 Balance -260 - Medications Medications: Current Medications Acetaminophen (Tylenol 325mg Tab) 650 mg PO Q6 PRN PRN Reason: Fever >100.4 F Last Admin: 04/16/18 09:11 Dose: 650 mg Apixaban (Eliquis) 2.5 mg PO Q12 [facility] Last Admin: 04/18/18 09:34 Dose: 2.5 mg Diltiazem HCl (Cardizem Cd) 240 mg PO DAILY [facility] Last Admin: 04/18/18 09:35 Dose: 240 mg Docusate Sodium (Colace) 100 mg PO DAILY [facility] Last Admin: 04/18/18 09:39 Dose: 100 mg Folic Acid (Folic Acid) 1 mg PO DAILY [facility] Last Admin: 04/18/18 09:34 Dose: 1 mg Furosemide (Lasix) 20 mg IVP DAILY [facility] Last Admin: 04/18/18 09:35 Dose: 20 mg Ipratropium [place] (Atrovent) 0.5 mg IH RQ6 [facility] Last Admin: 07/21/18 07:36 Dose: 0.5 mg Levothyroxine Sodium (Synthroid) 25 mcg PO DAILY@0630 [facility] Last Admin: 04/18/18 05:33 Dose: 25 mcg Lidocaine (Lidoderm) 1 ea TD DAILY [facility] Last Admin: 04/18/18 09:34 Dose: 1 ea Methylprednisolone (Solu-Medrol) 20 mg IVP DAILY [facility] Last Admin: 04/18/18 09:35 Dose: 20 mg Metoprolol Tartrate (Lopressor) 50 mg PO BID [facility] Last Admin: 04/18/18 10:38 Dose: 50 mg Nystatin (Nystatin Oral Susp) 5 ml PO QID [facility] Last Admin: 04/18/18 13:14 Dose: 5 ml Pantoprazole Sodium (Protonix Ec Tab) 40 mg PO DAILY [facility] Last Admin: 04/18/18 09:34 Dose: 40 mg - Labs Labs: 04/17/18 06:21 04/17/18 06:21 PT 14.9 SECONDS (9.7-12.2) H 04/10/18 06:32 INR 1.4 04/10/18 06:32 APTT 31 SECONDS (21-34) 04/10/18 06:32
--- NOTE | 2018-04-18 15:03 | CP.PCM.PN ---
Subjective - Date & Time of Evaluation Date of Evaluation: 04/18/18 Time of Evaluation: 15:00 - Subjective Subjective: Sitting in chair. some shortness of breath Objective - Vital Signs/Intake and Output Vital Signs (last 24 hours): Temp Pulse Resp BP Pulse Ox 98 F 100 H 20 105/77 99 04/18/18 07:00 04/18/18 07:00 04/18/18 07:00 04/18/18 10:39 04/18/18 07:00 Intake and Output: 04/18/18 04/18/18 06:59 18:59 Intake Total 240 240 Output Total 500 800 Balance -260 -560 - Medications Medications: Current Medications Acetaminophen (Tylenol 325mg Tab) 650 mg PO Q6 PRN PRN Reason: Fever >100.4 F Last Admin: 04/16/18 09:11 Dose: 650 mg Apixaban (Eliquis) 2.5 mg PO Q12 [facility] Last Admin: 04/18/18 09:34 Dose: 2.5 mg Diltiazem HCl (Cardizem Cd) 240 mg PO DAILY [facility] Last Admin: 04/18/18 09:35 Dose: 240 mg Docusate Sodium (Colace) 100 mg PO DAILY [facility] Last Admin: 04/18/18 09:39 Dose: 100 mg Folic Acid (Folic Acid) 1 mg PO DAILY [facility] Last Admin: 04/18/18 09:34 Dose: 1 mg Furosemide (Lasix) 20 mg IVP DAILY [facility] Last Admin: 04/18/18 09:35 Dose: 20 mg Ipratropium [place] (Atrovent) 0.5 mg IH RQ6 [facility] Last Admin: 04/18/18 13:46 Dose: 0.5 mg Levothyroxine Sodium (Synthroid) 25 mcg PO DAILY@0630 [facility] Last Admin: 04/18/18 05:33 Dose: 25 mcg Lidocaine (Lidoderm) 1 ea TD DAILY [facility] Last Admin: 04/18/18 09:34 Dose: 1 ea Methylprednisolone (Solu-Medrol) 20 mg IVP DAILY [facility] Last Admin: 04/18/18 09:35 Dose: 20 mg Metoprolol Tartrate (Lopressor) 50 mg PO BID [facility] Last Admin: 04/18/18 10:38 Dose: 50 mg Nystatin (Nystatin Oral Susp) 5 ml PO QID [facility] Last Admin: 04/18/18 13:14 Dose: 5 ml Pantoprazole Sodium (Protonix Ec Tab) 40 mg PO DAILY [facility] Last Admin: 04/18/18 09:34 Dose: 40 mg - Labs Labs: 04/17/18 06:21 04/17/18 06:21 PT 14.9 SECONDS (9.7-12.2) H 04/10/18 06:32 INR 1.4 04/10/18 06:32 APTT 31 SECONDS (21-34) 04/10/18 06:32 - Head Exam Head Exam: NORMOCEPHALIC - Neck Exam Neck Exam: Normal Inspection - Respiratory Exam Respiratory Exam: Decreased Breath Sounds - Cardiovascular Exam Cardiovascular Exam: Irregular Rhythm - Extremities Exam Extremities Exam: Pedal Edema - Neurological Exam Neurological Exam: Alert Assessment and Plan (1) CHF exacerbation Assessment & Plan: Improving. Diuretics with fluid restriction. Status: Acute (2) Afib Assessment & Plan: Rate control and Anticoagulation. Status: Acute (3) CAD (coronary artery disease) Assessment & Plan: Stable, Continue current care. Status: Chronic (4) S/P TAVR (transcatheter aortic valve replacement) Assessment & Plan: Stable. Status: Chronic
--- NOTE | 2018-04-18 19:40 | CP.PCM.PN ---
Subjective - Date & Time of Evaluation Date of Evaluation: 04/18/18 Time of Evaluation: 16:15 - Subjective Subjective: Feels tired Objective - Vital Signs/Intake and Output Vital Signs (last 24 hours): Temp Pulse Resp BP Pulse Ox 98.2 F 100 H 20 117/72 100 04/18/18 15:00 04/18/18 16:00 04/18/18 15:00 04/18/18 15:00 04/18/18 15:00 Intake and Output: 04/18/18 04/19/18 18:59 06:59 Intake Total 240 Output Total 800 Balance -560 - Medications Medications: Current Medications Acetaminophen (Tylenol 325mg Tab) 650 mg PO Q6 PRN PRN Reason: Fever >100.4 F Last Admin: 04/18/18 19:01 Dose: 650 mg Apixaban (Eliquis) 2.5 mg PO Q12 [facility] Last Admin: 04/18/18 09:34 Dose: 2.5 mg Diltiazem HCl (Cardizem Cd) 240 mg PO DAILY [facility] Last Admin: 04/18/18 09:35 Dose: 240 mg Docusate Sodium (Colace) 100 mg PO DAILY [facility] Last Admin: 04/18/18 09:39 Dose: 100 mg Folic Acid (Folic Acid) 1 mg PO DAILY [facility] Last Admin: 04/18/18 09:34 Dose: 1 mg Furosemide (Lasix) 20 mg IVP DAILY [facility] Last Admin: 04/18/18 09:35 Dose: 20 mg Ipratropium [place] (Atrovent) 0.5 mg IH RQ6 [facility] Last Admin: 04/18/18 19:01 Dose: 0.5 mg Levothyroxine Sodium (Synthroid) 25 mcg PO DAILY@0630 [facility] Last Admin: 04/18/18 05:33 Dose: 25 mcg Lidocaine (Lidoderm) 1 ea TD DAILY [facility] Last Admin: 04/18/18 09:34 Dose: 1 ea Methylprednisolone (Solu-Medrol) 20 mg IVP DAILY [facility] Last Admin: 04/18/18 09:35 Dose: 20 mg Metoprolol Tartrate (Lopressor) 50 mg PO BID [facility] Last Admin: 04/18/18 17:10 Dose: 50 mg Nystatin (Nystatin Oral Susp) 5 ml PO QID [facility] Last Admin: 04/18/18 17:10 Dose: 5 ml Pantoprazole Sodium (Protonix Ec Tab) 40 mg PO DAILY [facility] Last Admin: 04/18/18 09:34 Dose: 40 mg - Labs Labs: 04/17/18 06:21 04/17/18 06:21 PT 14.9 SECONDS (9.7-12.2) H 04/10/18 06:32 INR 1.4 04/10/18 06:32 APTT 31 SECONDS (21-34) 04/10/18 06:32 - Head Exam Head Exam: ATRAUMATIC - Eye Exam Eye Exam: Normal appearance - ENT Exam ENT Exam: Mucous Membranes Dry - Respiratory Exam Respiratory Exam: NORMAL BREATHING PATTERN - Cardiovascular Exam Cardiovascular Exam: +S1, +S2 - GI/Abdominal Exam GI & Abdominal Exam: Normal Bowel Sounds Assessment and Plan (1) Anemia Assessment & Plan: mild near normal Status: Acute (2) Thrombocytopenia Assessment & Plan: resolved Status: Acute
[2018-04-19] MEDS: Ipratropium 0.02% Inhal Soln (0.5 mg/2.5 ml) UD IH SCH ×4 (01:14→19:34)
[2018-04-19] MEDS: Levothyroxine 25 MCG TAB PO SCH (06:00)
[2018-04-19] MEDS: diltiaZEM 240 mg/24 Hours CD Cap PO SCH (09:29)
[2018-04-19] MEDS: MethylPREDNISolone 40 mg Vial IVP SCH (09:31)
[2018-04-19] MEDS: Nystatin 100,000 Units/ml Oral Susp 5 ml UD PO SCH ×4 (09:34→22:47)
[2018-04-19] MEDS: Lidocaine 5% Patch TD SCH (09:35)
[2018-04-19] MEDS: Pantoprazole 40 mg EC Tab PO SCH (10:59)
--- NOTE | 2018-04-19 18:16 | CP.PCM.PN ---
Subjective - Date & Time of Evaluation Date of Evaluation: 04/19/18 Time of Evaluation: 18:14 - Subjective Subjective: Feeling better than yesterday. No chest pain or palpitation. Breathing has improved. Objective - Vital Signs/Intake and Output Vital Signs (last 24 hours): Temp Pulse Resp BP Pulse Ox 97.7 F 111 H 20 107/68 98 04/19/18 15:48 04/19/18 17:00 04/19/18 15:48 04/19/18 15:48 04/19/18 15:48 Intake and Output: 04/19/18 04/19/18 06:59 18:59 Intake Total 240 Output Total 700 Balance -460 - Medications Medications: Current Medications Acetaminophen (Tylenol 325mg Tab) 650 mg PO Q6 PRN PRN Reason: Fever >100.4 F Last Admin: 04/18/18 19:01 Dose: 650 mg Apixaban (Eliquis) 2.5 mg PO Q12 [facility] Last Admin: 04/19/18 09:29 Dose: 2.5 mg Diltiazem HCl (Cardizem Cd) 240 mg PO DAILY [facility] Last Admin: 04/19/18 09:29 Dose: 240 mg Docusate Sodium (Colace) 100 mg PO DAILY [facility] Last Admin: 04/19/18 09:29 Dose: 100 mg Folic Acid (Folic Acid) 1 mg PO DAILY [facility] Last Admin: 04/19/18 09:29 Dose: 1 mg Furosemide (Lasix) 20 mg IVP DAILY [facility] Last Admin: 04/19/18 09:29 Dose: 20 mg Ipratropium [place] (Atrovent) 0.5 mg IH RQ6 [facility] Last Admin: 04/19/18 13:23 Dose: Not Given Levothyroxine Sodium (Synthroid) 25 mcg PO DAILY@0630 [facility] Last Admin: 04/19/18 06:00 Dose: 25 mcg Lidocaine (Lidoderm) 1 ea TD DAILY [facility] Last Admin: 04/19/18 09:35 Dose: 1 ea Methylprednisolone (Solu-Medrol) 20 mg IVP DAILY [facility] Last Admin: 04/19/18 09:31 Dose: 20 mg Metoprolol Tartrate (Lopressor) 50 mg PO BID [facility] Last Admin: 04/19/18 10:35 Dose: 50 mg Nystatin (Nystatin Oral Susp) 5 ml PO QID [facility] Last Admin: 04/19/18 13:49 Dose: 5 ml Pantoprazole Sodium (Protonix Ec Tab) 40 mg PO DAILY [facility] Last Admin: 04/19/18 10:59 Dose: 40 mg - Labs Labs: 04/17/18 06:21 04/17/18 06:21 PT 14.9 SECONDS (9.7-12.2) H 04/10/18 06:32 INR 1.4 04/10/18 06:32 APTT 31 SECONDS (21-34) 04/10/18 06:32 - Head Exam Head Exam: NORMOCEPHALIC - Neck Exam Neck Exam: Normal Inspection - Respiratory Exam Respiratory Exam: NORMAL BREATHING PATTERN - Cardiovascular Exam Cardiovascular Exam: Irregular Rhythm, REGULAR RHYTHM - Extremities Exam Extremities Exam: Normal Inspection - Neurological Exam Neurological Exam: Alert, Oriented x3 Assessment and Plan (1) CHF exacerbation Assessment & Plan: Improved, Diuretics as needed. Fluid restriction. Status: Acute (2) Afib Assessment & Plan: Rate control and therapeutic anticoagulation. Status: Acute (3) CAD (coronary artery disease) Assessment & Plan: Stable, continue current care.. Status: Chronic (4) S/P TAVR (transcatheter aortic valve replacement) Status: Chronic
--- NOTE | 2018-04-19 21:42 | CP.PCM.PN ---
Subjective - Date & Time of Evaluation Date of Evaluation: 04/19/18 Time of Evaluation: 21:42 - Subjective Subjective: Patient is complaining of minimal cough. Leg swelling still present. She able to eat today better, she was able to walk. On examination: Mildly tachycardia noted, blood pressure stable. Chest bilateral good air entry no wheezing or rales noted Regular heart sound Abdomen soft nontender Edema 1+ noted No recent labs done today Assessment and recommendation: 87-year-old female with a history of atrial fibrillation, hypertension, aortic stenosis, status post aortic valve replacement, CAD, status post stent. Anemia, of unknown origin. Currently stable. Continue the physical therapy. Spoke to the patient's family in details. Will follow-up the patient Objective - Vital Signs/Intake and Output Vital Signs (last 24 hours): Temp Pulse Resp BP Pulse Ox 97.7 F 111 H 20 107/68 98 04/19/18 15:48 04/19/18 20:00 04/19/18 15:48 04/19/18 15:48 04/19/18 15:48 Intake and Output: 04/19/18 04/20/18 18:59 06:59 Output Total 700 Balance -700 - Medications Medications: Current Medications Acetaminophen (Tylenol 325mg Tab) 650 mg PO Q6 PRN PRN Reason: Fever >100.4 F Last Admin: 04/18/18 19:01 Dose: 650 mg Apixaban (Eliquis) 2.5 mg PO Q12 [facility] Last Admin: 04/19/18 09:29 Dose: 2.5 mg Diltiazem HCl (Cardizem Cd) 240 mg PO DAILY [facility] Last Admin: 04/19/18 09:29 Dose: 240 mg Docusate Sodium (Colace) 100 mg PO DAILY [facility] Folic Acid (Folic Acid) 1 mg PO DAILY [facility] Last Admin: 04/19/18 09:29 Dose: 1 mg Furosemide (Lasix) 20 mg PO DAILY [facility] Ipratropium [place] (Atrovent) 0.5 mg IH RQ6 [facility] Last Admin: 04/19/18 19:34 Dose: 0.5 mg Levothyroxine Sodium (Synthroid) 25 mcg PO DAILY@0630 [facility] Last Admin: 04/19/18 06:00 Dose: 25 mcg Lidocaine (Lidoderm) 1 ea TD DAILY [facility] Metoprolol Tartrate (Lopressor) 50 mg PO BID [facility] Last Admin: 04/19/18 18:34 Dose: 50 mg Nystatin (Nystatin Oral Susp) 5 ml PO QID [facility] Last Admin: 04/19/18 18:34 Dose: 5 ml Pantoprazole Sodium (Protonix Ec Tab) 40 mg PO DAILY [facility] Last Admin: 04/19/18 10:59 Dose: 40 mg - Labs Labs: 04/17/18 06:21 04/17/18 06:21 PT 14.9 SECONDS (9.7-12.2) H 04/10/18 06:32 INR 1.4 04/10/18 06:32 APTT 31 SECONDS (21-34) 04/10/18 06:32
[2018-04-20] MEDS: Ipratropium 0.02% Inhal Soln (0.5 mg/2.5 ml) UD IH SCH ×4 (02:42→19:54)
[2018-04-20] MEDS: Levothyroxine 25 MCG TAB PO SCH (05:49)
[2018-04-20 07:00] LABS: BASO % 0.3 % (0.0-2.0); EOS % 0.4 % (0.0-4.0); HEMOGLOBIN 10.5 g/dL (11.0-16.0); LYMPH # 0.6 K/uL (1.0-4.3); LYMPH % 6.4 % (20.0-40.0); MEAN CELL VOLUME 83.1 fL (81.0-99.0); MEAN CORPUSCULAR HEMOGLOBIN 26.7 pg (27.0-31.0); MEAN CORPUSCULAR HGB CONC 32.2 g/dL (33.0-37.0); MEAN PLATELET VOLUME 8.6 fL (7.2-11.7); MONO # 0.9 K/uL (0.0-0.8); MONO % 9.6 % (0.0-10.0); NEUT # 8.2 K/uL (1.8-7.0); NEUT % 83.3 % (50.0-75.0); PLATELET COUNT 132 K/uL (130-400); RBC 3.93 Mil/uL (3.80-5.20); RED CELL DISTRIBUTION WIDTH 19.2 % (11.5-14.5); WHITE BLOOD COUNT 9.9 K/uL (4.8-10.8)
[2018-04-20 07:41] LABS: ALBUMIN 2.7 g/dL (3.5-5.0); ALT/SGPT 67 U/L (9-52); AST/SGOT 27 U/L (14-36); BLOOD UREA NITROGEN 28 mg/dL (7-17); CALCIUM 8.5 mg/dl (8.6-10.4); GFR AFRICAN-AMERICAN > 60; GFR NON-AFRICAN AMERICAN 59
[2018-04-20 08:14] LABS: ANISOCYTOSIS SLIGHT; EOSINOPHIL 1 % (0-4); HYPOCHROMIC SLIGHT; LYMPHOCYTE 6 % (20-40); MONOCYTE 10 % (0-10); MYELOCYTE 1 % (0-0); NEUTROPHIL 82 % (50-75); PLATELET ESTIMATE NORMAL (NORMAL); POIKILOCYTOSIS SLIGHT; TOTAL CELLS COUNTED 100
[2018-04-20 08:15] LABS: LARGE PLATELETS PRESENT; OVALOCYTES SLIGHT; TARGET CELLS SLIGHT
[2018-04-20] MEDS: diltiaZEM 240 mg/24 Hours CD Cap PO SCH (11:01)
[2018-04-20] MEDS: Lidocaine 5% Patch TD SCH (11:02)
[2018-04-20] MEDS: Nystatin 100,000 Units/ml Oral Susp 5 ml UD PO SCH ×4 (11:02→22:15)
[2018-04-20] MEDS: Pantoprazole 40 mg EC Tab PO SCH (11:02)
--- NOTE | 2018-04-20 12:38 | CP.PCM.PN ---
Subjective - Date & Time of Evaluation Date of Evaluation: 04/20/18 Time of Evaluation: 12:39 - Subjective Subjective: THIS PROGRESS NOTE IS FOR HOME OXYGEN REQUEST. PT WOULD BENEFIT FROM HOME O2 USE FOR DYSPNEA AND RESPIRATORY DISTRESS AT REST WHICH WORSENS UPON AMBULATION. O2 SAT AT ROOM AIR AT REST IS 91%; O2 SAT AT ROOM AIR DURING AMBULATION IS 70% . HOME O2 TO BE USED AT 2-3 LPM VIA NASAL CANNULA CONTINUOUSLY. Objective - Vital Signs/Intake and Output Vital Signs (last 24 hours): Temp Pulse Resp BP Pulse Ox 97.0 F L 94 H 20 135/76 96 04/20/18 07:30 04/20/18 08:21 04/20/18 07:30 04/20/18 11:02 04/20/18 07:30 Intake and Output: 04/20/18 04/20/18 06:59 18:59 Output Total 1000 Balance -1000 - Medications Medications: Current Medications Acetaminophen (Tylenol 325mg Tab) 650 mg PO Q6 PRN PRN Reason: Fever >100.4 F Last Admin: 04/18/18 19:01 Dose: 650 mg Apixaban (Eliquis) 2.5 mg PO Q12 [facility] Last Admin: 04/20/18 11:01 Dose: 2.5 mg Diltiazem HCl (Cardizem Cd) 240 mg PO DAILY [facility] Last Admin: 04/20/18 11:01 Dose: 240 mg Docusate Sodium (Colace) 100 mg PO DAILY [facility] Last Admin: 04/20/18 11:01 Dose: 100 mg Folic Acid (Folic Acid) 1 mg PO DAILY [facility] Last Admin: 04/20/18 11:01 Dose: 1 mg Furosemide (Lasix) 20 mg PO DAILY [facility] Last Admin: 04/20/18 11:02 Dose: 20 mg Ipratropium [place] (Atrovent) 0.5 mg IH RQ6 [facility] Last Admin: 04/20/18 07:25 Dose: 0.5 mg Levothyroxine Sodium (Synthroid) 25 mcg PO DAILY@0630 [facility] Last Admin: 04/20/18 05:49 Dose: 25 mcg Lidocaine (Lidoderm) 1 ea TD DAILY [facility] Last Admin: 04/20/18 11:02 Dose: 1 ea Metoprolol Tartrate (Lopressor) 50 mg PO BID [facility] Last Admin: 04/20/18 11:02 Dose: 50 mg Nystatin (Nystatin Oral Susp) 5 ml PO QID [facility] Last Admin: 04/20/18 11:02 Dose: 5 ml Pantoprazole Sodium (Protonix Ec Tab) 40 mg PO DAILY [facility] Last Admin: 04/20/18 11:02 Dose: 40 mg - Labs Labs: 04/20/18 06:39 04/20/18 06:39 PT 14.9 SECONDS (9.7-12.2) H 04/10/18 06:32 INR 1.4 04/10/18 06:32 APTT 31 SECONDS (21-34) 04/10/18 06:32
--- NOTE | 2018-04-20 18:59 | CP.PCM.PN ---
Subjective - Date & Time of Evaluation Date of Evaluation: 04/20/18 Time of Evaluation: 18:58 - Subjective Subjective: No new issues. Objective - Vital Signs/Intake and Output Vital Signs (last 24 hours): Temp Pulse Resp BP Pulse Ox 97.0 F L 113 H 20 135/76 96 04/20/18 07:30 04/20/18 16:00 04/20/18 07:30 04/20/18 11:02 04/20/18 07:30 Intake and Output: 04/20/18 04/20/18 06:59 18:59 Intake Total 300 Output Total 1000 Balance -1000 300 - Medications Medications: Current Medications Acetaminophen (Tylenol 325mg Tab) 650 mg PO Q6 PRN PRN Reason: Fever >100.4 F Last Admin: 04/18/18 19:01 Dose: 650 mg Apixaban (Eliquis) 2.5 mg PO Q12 [facility] Last Admin: 04/20/18 11:01 Dose: 2.5 mg Diltiazem HCl (Cardizem Cd) 240 mg PO DAILY [facility] Last Admin: 04/20/18 11:01 Dose: 240 mg Docusate Sodium (Colace) 100 mg PO DAILY [facility] Last Admin: 04/20/18 11:01 Dose: 100 mg Folic Acid (Folic Acid) 1 mg PO DAILY [facility] Last Admin: 04/20/18 11:01 Dose: 1 mg Furosemide (Lasix) 20 mg PO DAILY [facility] Last Admin: 04/20/18 11:02 Dose: 20 mg Ipratropium [place] (Atrovent) 0.5 mg IH RQ6 [facility] Last Admin: 04/20/18 13:29 Dose: 0.5 mg Levothyroxine Sodium (Synthroid) 25 mcg PO DAILY@0630 [facility] Last Admin: 04/20/18 05:49 Dose: 25 mcg Lidocaine (Lidoderm) 1 ea TD DAILY [facility] Last Admin: 04/20/18 11:02 Dose: 1 ea Metoprolol Tartrate (Lopressor) 50 mg PO BID [facility] Last Admin: 04/20/18 18:24 Dose: 50 mg Nystatin (Nystatin Oral Susp) 5 ml PO QID [facility] Last Admin: 04/20/18 18:23 Dose: 5 ml Pantoprazole Sodium (Protonix Ec Tab) 40 mg PO DAILY [facility] Last Admin: 04/20/18 11:02 Dose: 40 mg - Labs Labs: 07/23/18 06:39 04/20/18 06:39 PT 14.9 SECONDS (9.7-12.2) H 04/10/18 06:32 INR 1.4 04/10/18 06:32 APTT 31 SECONDS (21-34) 04/10/18 06:32 Assessment and Plan (1) CHF exacerbation Status: Acute (2) Afib Status: Acute (3) CAD (coronary artery disease) Status: Chronic (4) S/P TAVR (transcatheter aortic valve replacement) Status: Chronic
--- NOTE | 2018-04-20 19:35 | CP.PCM.PN ---
Subjective - Date & Time of Evaluation Date of Evaluation: 04/20/18 Time of Evaluation: 19:35 - Subjective Subjective: Patient's today labs reviewed Nonspecific. Stable renal functions noted. Bilateral leg swelling noted, left more than the right. On Eliquis. On examination: Mild tachycardia noted. Blood pressure stable. Chest good air entry. Regular heart sounds nontender abdomen Labs reviewed. Assessment and recommendation: 87-year-old female with a history of intermittent atrial fibrillation, a AICD, pacemaker, CAD, stent, AVR 2. Admitted with anemia, acute respiratory failure, pneumonia. Currently stable. Improving. We will continue the physical therapy. Out of bed to chair. Continue the heart rate monitoring, will follow the patient Objective - Vital Signs/Intake and Output Vital Signs (last 24 hours): Temp Pulse Resp BP Pulse Ox 97.4 F L 113 H 20 120/79 98 04/20/18 15:02 04/20/18 16:00 04/20/18 15:02 04/20/18 15:02 04/20/18 15:02 Intake and Output: 04/20/18 04/21/18 18:59 06:59 Intake Total 300 Balance 300 - Medications Medications: Current Medications Acetaminophen (Tylenol 325mg Tab) 650 mg PO Q6 PRN PRN Reason: Fever >100.4 F Last Admin: 04/18/18 19:01 Dose: 650 mg Apixaban (Eliquis) 2.5 mg PO Q12 [facility] Last Admin: 04/20/18 11:01 Dose: 2.5 mg Diltiazem HCl (Cardizem Cd) 240 mg PO DAILY [facility] Last Admin: 04/20/18 11:01 Dose: 240 mg Docusate Sodium (Colace) 100 mg PO DAILY [facility] Last Admin: 04/20/18 11:01 Dose: 100 mg Folic Acid (Folic Acid) 1 mg PO DAILY [facility] Last Admin: 04/20/18 11:01 Dose: 1 mg Furosemide (Lasix) 20 mg PO DAILY [facility] Last Admin: 04/20/18 11:02 Dose: 20 mg Ipratropium [place] (Atrovent) 0.5 mg IH RQ6 [facility] Last Admin: 04/20/18 13:29 Dose: 0.5 mg Levothyroxine Sodium (Synthroid) 25 mcg PO DAILY@0630 [facility] Last Admin: 04/20/18 05:49 Dose: 25 mcg Lidocaine (Lidoderm) 1 ea TD DAILY [facility] Last Admin: 04/20/18 11:02 Dose: 1 ea Metoprolol Tartrate (Lopressor) 50 mg PO BID [facility] Last Admin: 04/20/18 18:24 Dose: 50 mg Nystatin (Nystatin Oral Susp) 5 ml PO QID [facility] Last Admin: 04/20/18 18:23 Dose: 5 ml Pantoprazole Sodium (Protonix Ec Tab) 40 mg PO DAILY [facility] Last Admin: 04/20/18 11:02 Dose: 40 mg - Labs Labs: 04/20/18 06:39 04/20/18 06:39 PT 14.9 SECONDS (9.7-12.2) H 04/10/18 06:32 INR 1.4 04/10/18 06:32 APTT 31 SECONDS (21-34) 04/10/18 06:32
[2018-04-21] MEDS: Ipratropium 0.02% Inhal Soln (0.5 mg/2.5 ml) UD IH SCH ×4 (01:06→19:45)
[2018-04-21] MEDS: Levothyroxine 25 MCG TAB PO SCH (06:05)
[2018-04-21] MEDS: diltiaZEM 240 mg/24 Hours CD Cap PO SCH (10:28)
[2018-04-21] MEDS: Pantoprazole 40 mg EC Tab PO SCH (10:28)
[2018-04-21] MEDS: Lidocaine 5% Patch TD SCH (10:29)
--- NOTE | 2018-04-21 18:31 | CP.PCM.PN ---
Subjective - Date & Time of Evaluation Date of Evaluation: 04/21/18 Time of Evaluation: 17:00 - Subjective Subjective: No complaints. Objective - Vital Signs/Intake and Output Vital Signs (last 24 hours): Temp Pulse Resp BP Pulse Ox 97.6 F 80 20 106/54 L 98 04/21/18 15:51 04/21/18 15:51 04/21/18 15:51 04/21/18 15:51 04/21/18 15:51 Intake and Output: 04/21/18 04/21/18 06:59 18:59 Intake Total 250 Output Total 1050 Balance -1050 250 - Medications Medications: Current Medications Acetaminophen (Tylenol 325mg Tab) 650 mg PO Q6 PRN PRN Reason: Fever >100.4 F Last Admin: 04/18/18 19:01 Dose: 650 mg Apixaban (Eliquis) 2.[address] [facility] Last Admin: 04/21/18 10:29 Dose: 2.5 mg Diltiazem HCl (Cardizem Cd) [address] [facility] Last Admin: 04/21/18 10:28 Dose: 240 mg Docusate Sodium (Colace) [address] [facility] Last Admin: 04/21/18 10:28 Dose: 100 mg Folic Acid (Folic Acid) [address] [facility] Last Admin: 04/21/18 10:28 Dose: 1 mg Furosemide (Lasix) [address] [facility] Last Admin: 04/21/18 10:27 Dose: 20 mg Ipratropium [place] (Atrovent) 0.[address] [facility] Last Admin: 04/21/18 14:02 Dose: 0.5 mg Levothyroxine Sodium (Synthroid) 25 mcg PO DAILY@0630 [facility] Last Admin: 04/21/18 06:05 Dose: 25 mcg Lidocaine (Lidoderm) [address] [facility] Last Admin: 04/21/18 10:29 Dose: 1 ea Metoprolol Tartrate (Lopressor) [address] [facility] Last Admin: 04/21/18 10:28 Dose: 50 mg Pantoprazole Sodium (Protonix Ec Tab) [address] [facility] Last Admin: 04/21/18 10:28 Dose: 40 mg - Labs Labs: 04/20/18 06:39 04/20/18 06:39 PT 14.9 SECONDS (9.7-12.2) H 04/10/18 06:32 INR 1.4 04/10/18 06:32 APTT 31 SECONDS (21-34) 04/10/18 06:32 - Head Exam Head Exam: ATRAUMATIC - Eye Exam Eye Exam: Normal appearance - ENT Exam ENT Exam: Mucous Membranes Dry - Respiratory Exam Respiratory Exam: NORMAL BREATHING PATTERN - Cardiovascular Exam Cardiovascular Exam: +S1, +S2 - GI/Abdominal Exam GI & Abdominal Exam: Normal Bowel Sounds Assessment and Plan (1) Anemia Assessment & Plan: mild Status: Acute (2) Thrombocytopenia Assessment & Plan: resolved Status: Acute
--- NOTE | 2018-04-21 20:16 | CP.PCM.PN ---
Subjective - Date & Time of Evaluation Date of Evaluation: 04/21/18 Time of Evaluation: 20:16 - Subjective Subjective: Patient today sitting up Comfortable Able to do physical therapy Vital signs stable. Chest good air entry regular heart sounds nontender abdominal pedal edema Labs reviewed Assessment and recommendation: 87-year-old female with a history of atrial flutter fibrillation hypertension hypercholesterolemia CAD status post a stent AVR 2. Admitted with a pneumonia. The aspiration pneumonia improved Anemia of unclear source Patient will be continued to monitor. Discussed with the family regarding the discharge plan. Hospital employment case manager and social media marketer will speak to the family tomorrow. To discuss possible discharge plan Objective - Vital Signs/Intake and Output Vital Signs (last 24 hours): Temp Pulse Resp BP Pulse Ox 97.6 F 80 20 106/54 L 98 04/21/18 15:51 04/21/18 15:51 04/21/18 15:51 04/21/18 15:51 04/21/18 15:51 Intake and Output: 04/21/18 04/22/18 18:59 06:59 Intake Total 250 Balance 250 - Medications Medications: Current Medications Acetaminophen (Tylenol 325mg Tab) 650 mg PO Q6 PRN PRN Reason: Fever >100.4 F Last Admin: 04/21/18 19:15 Dose: 650 mg Apixaban (Eliquis) 2.5 mg PO Q12 [facility] Last Admin: 04/21/18 10:29 Dose: 2.5 mg Diltiazem HCl (Cardizem Cd) 240 mg PO DAILY [facility] Last Admin: 04/21/18 10:28 Dose: 240 mg Docusate Sodium (Colace) 100 mg PO DAILY [facility] Last Admin: 04/21/18 10:28 Dose: 100 mg Folic Acid (Folic Acid) 1 mg PO DAILY [facility] Last Admin: 04/21/18 10:28 Dose: 1 mg Furosemide (Lasix) 20 mg PO DAILY [facility] Last Admin: 04/21/18 10:27 Dose: 20 mg Ipratropium [place] (Atrovent) 0.5 mg IH RQ6 [facility] Last Admin: 04/21/18 19:45 Dose: 0.5 mg Levothyroxine Sodium (Synthroid) 25 mcg PO DAILY@0630 [facility] Last Admin: 04/21/18 06:05 Dose: 25 mcg Lidocaine (Lidoderm) 1 ea TD DAILY [facility] Last Admin: 04/21/18 10:29 Dose: 1 ea Metoprolol Tartrate (Lopressor) 50 mg PO BID [facility] Last Admin: 04/21/18 18:15 Dose: 50 mg Pantoprazole Sodium (Protonix Ec Tab) 40 mg PO DAILY [facility] Last Admin: 04/21/18 10:28 Dose: 40 mg - Labs Labs: 04/20/18 06:39 04/20/18 06:39 PT 14.9 SECONDS (9.7-12.2) H 04/10/18 06:32 INR 1.4 04/10/18 06:32 APTT 31 SECONDS (21-34) 04/10/18 06:32
--- NOTE | 2018-04-21 22:56 | CP.PCM.PN ---
Subjective - Date & Time of Evaluation Date of Evaluation: 04/21/18 Time of Evaluation: 13:20 - Subjective Subjective: Patient seen and evaluated Feels better Decreased breathing issues Objective - Vital Signs/Intake and Output Vital Signs (last 24 hours): Temp Pulse Resp BP Pulse Ox 97.6 F 80 20 106/54 L 98 04/21/18 15:51 04/21/18 15:51 04/21/18 15:51 04/21/18 15:51 04/21/18 15:51 Intake and Output: 04/21/18 04/22/18 18:59 06:59 Intake Total 250 Output Total 650 Balance 250 -650 - Medications Medications: Current Medications Acetaminophen (Tylenol 325mg Tab) 650 mg PO Q6 PRN PRN Reason: Fever >100.4 F Last Admin: 04/21/18 19:15 Dose: 650 mg Apixaban (Eliquis) 2.5 mg PO Q12 [facility] [place] Last Admin: 04/21/18 21:57 Dose: 2.5 mg Diltiazem HCl (Cardizem Cd) 240 mg PO DAILY [facility] [place] Last Admin: 04/21/18 10:28 Dose: 240 mg Docusate Sodium (Colace) 100 mg PO DAILY [facility] [place] Last Admin: 04/21/18 10:28 Dose: 100 mg Folic Acid (Folic Acid) 1 mg PO DAILY [facility] [place] Last Admin: 04/21/18 10:28 Dose: 1 mg Furosemide (Lasix) 20 mg PO DAILY [facility] [place] Last Admin: 04/21/18 10:27 Dose: 20 mg Ipratropium [place] (Atrovent) 0.5 mg IH RQ6 [facility] [place] Last Admin: 04/21/18 19:45 Dose: 0.5 mg Levothyroxine Sodium (Synthroid) 25 mcg PO DAILY@0630 [facility] [place] Last Admin: 04/21/18 06:05 Dose: 25 mcg Lidocaine (Lidoderm) 1 ea TD DAILY [facility] [place] Last Admin: 04/21/18 10:29 Dose: 1 ea Metoprolol Tartrate (Lopressor) 50 mg PO BID [facility] [place] Last Admin: 04/21/18 18:15 Dose: 50 mg Pantoprazole Sodium (Protonix Ec Tab) 40 mg PO DAILY [facility] [place] Last Admin: 04/21/18 10:28 Dose: 40 mg - Labs Labs: 04/20/18 06:39 04/20/18 06:39 PT 14.9 SECONDS (9.7-12.2) H 04/10/18 06:32 INR 1.4 04/10/18 06:32 APTT 31 SECONDS (21-34) 04/10/18 06:32
[2018-04-22] MEDS: Ipratropium 0.02% Inhal Soln (0.5 mg/2.5 ml) UD IH SCH ×4 (01:14→20:57)
[2018-04-22] MEDS: Levothyroxine 25 MCG TAB PO SCH (06:39)
[2018-04-22] MEDS: diltiaZEM 240 mg/24 Hours CD Cap PO SCH (09:39)
[2018-04-22] MEDS: Lidocaine 5% Patch TD SCH (09:39)
[2018-04-22] MEDS: Pantoprazole 40 mg EC Tab PO SCH (09:39)
--- NOTE | 2018-04-22 14:33 | RAD ---
Date of service: 04/22/2018 HISTORY: chf COMPARISON: 04/16/2018 FINDINGS: LUNGS: No active pulmonary disease. PLEURA: Possible small left pleural effusion. No evidence of right pleural effusion. No pneumothorax. CARDIOVASCULAR: Normal heart size. Mild congestive change. Permanent pacemaker. OSSEOUS STRUCTURES: No significant abnormalities. VISUALIZED UPPER ABDOMEN: Normal. OTHER FINDINGS: None. IMPRESSION: Mild congestive change. Small left pleural effusion. Possible congestive heart failure. No russell pulmonary consolidation. Permanent pacemaker.
[2018-04-22 16:12] LABS: BASO % 0.3 % (0.0-2.0); EOS # 0.1 K/uL (0.0-0.7); EOS % 0.8 % (0.0-4.0); HEMOGLOBIN 10.5 g/dL (11.0-16.0); LYMPH # 0.3 K/uL (1.0-4.3); LYMPH % 4.4 % (20.0-40.0); MEAN CELL VOLUME 84.1 fL (81.0-99.0); MEAN CORPUSCULAR HEMOGLOBIN 26.9 pg (27.0-31.0); MEAN CORPUSCULAR HGB CONC 32.1 g/dL (33.0-37.0); MEAN PLATELET VOLUME 8.9 fL (7.2-11.7); MONO # 0.6 K/uL (0.0-0.8); MONO % 8.1 % (0.0-10.0); NEUT # 6.4 K/uL (1.8-7.0); NEUT % 86.4 % (50.0-75.0); RBC 3.91 Mil/uL (3.80-5.20); RED CELL DISTRIBUTION WIDTH 20.2 % (11.5-14.5); WHITE BLOOD COUNT 7.4 K/uL (4.8-10.8)
[2018-04-22 16:28] LABS: PLATELET COUNT 103 K/uL (130-400)
[2018-04-22 16:40] LABS: ALB/GLOB RATIO 1.1 (1.0-2.1); ALBUMIN 2.8 g/dL (3.5-5.0); ALT/SGPT 53 U/L (9-52); AST/SGOT 24 U/L (14-36); BLOOD UREA NITROGEN 22 mg/dL (7-17); CALCIUM 8.3 mg/dl (8.6-10.4); GFR AFRICAN-AMERICAN > 60; GFR NON-AFRICAN AMERICAN 59
[2018-04-22 16:44] LABS: ANISOCYTOSIS SLIGHT; BANDS 1 % (0-2); HYPOCHROMIC SLIGHT; LYMPHOCYTE 4 % (20-40); MONOCYTE 6 % (0-10); NEUTROPHIL 89 % (50-75); OVALOCYTES SLIGHT; PLATELET ESTIMATE SLIGHTLY DECREASED (NORMAL); POIKILOCYTOSIS SLIGHT; TOTAL CELLS COUNTED 100
[2018-04-22 16:48] LABS: CK-MB 1.07 ng/mL (0.0-3.38)
--- NOTE | 2018-04-22 17:50 | CP.PCM.PN ---
<Laura Valle - Last Filed: 04/22/18 17:48> Subjective - Date & Time of Evaluation Date of Evaluation: 04/22/18 Time of Evaluation: 10:00 - Subjective Subjective: PGY2- Progress Note for Dr. Gaitan Patient seen and examined at bedside. Patient did not tolerate physical therapy because she became short of breath. Patient denies any chest pain, abdominal pain, nausea, vomiting, constipation, or diarrhea. Patient admits to lower extremity swelling. Objective - Vital Signs/Intake and Output Vital Signs (last 24 hours): Temp Pulse Resp BP Pulse Ox 98.6 F 113 H 20 96/63 L 99 04/22/18 15:47 04/22/18 16:22 04/22/18 15:47 04/22/18 15:47 04/22/18 15:47 Intake and Output: 04/22/18 04/22/18 06:59 18:59 Intake Total 400 480 Output Total 750 200 Balance -350 280 - Medications Medications: Current Medications Acetaminophen (Tylenol 325mg Tab) 650 mg PO Q6 PRN PRN Reason: Fever >100.4 F Last Admin: 04/22/18 14:36 Dose: 650 mg Apixaban (Eliquis) 2.5 mg PO Q12 [facility] Last Admin: 04/22/18 09:39 Dose: 2.5 mg Digoxin (Lanoxin) 0.25 mg PO DAILY@1800 [facility] Diltiazem HCl (Cardizem Cd) 240 mg PO DAILY [facility] Last Admin: 04/22/18 09:39 Dose: 240 mg Docusate Sodium (Colace) 100 mg PO DAILY [facility] Last Admin: 04/22/18 09:39 Dose: 100 mg Folic Acid (Folic Acid) 1 mg PO DAILY [facility] Last Admin: 04/22/18 09:39 Dose: 1 mg Furosemide (Lasix) 20 mg PO DAILY [facility] Last Admin: 04/22/18 09:40 Dose: Not Given Ipratropium [place] (Atrovent) 0.5 mg IH RQ6 [facility] Last Admin: 04/22/18 13:38 Dose: 0.5 mg Levothyroxine Sodium (Synthroid) 25 mcg PO DAILY@0630 [facility] Last Admin: 04/22/18 06:39 Dose: 25 mcg Lidocaine (Lidoderm) 1 ea TD DAILY [facility] Last Admin: 07/25/18 09:39 Dose: 1 ea Metoprolol Tartrate (Lopressor) 50 mg PO BID [facility] Last Admin: 04/22/18 17:06 Dose: Not Given Pantoprazole Sodium (Protonix Ec Tab) 40 mg PO DAILY [facility] Last Admin: 04/22/18 09:39 Dose: 40 mg - Labs Labs: 04/22/18 16:07 04/22/18 16:07 PT 14.9 SECONDS (9.7-12.2) H 04/10/18 06:32 INR 1.4 04/10/18 06:32 APTT 31 SECONDS (21-34) 04/10/18 06:32 - Constitutional Appears: Non-toxic, No Acute Distress - Head Exam Head Exam: ATRAUMATIC, NORMAL INSPECTION, NORMOCEPHALIC - Eye Exam Eye Exam: EOMI - ENT Exam ENT Exam: Mucous Membranes Moist - Respiratory Exam Respiratory Exam: Wheezes, NORMAL BREATHING PATTERN - Cardiovascular Exam Cardiovascular Exam: Tachycardia, Irregular Rhythm - GI/Abdominal Exam GI & Abdominal Exam: Soft, Normal Bowel Sounds. absent: Tenderness - Extremities Exam Extremities Exam: Pedal Edema Additional comments: 3+ pitting edema b/l - Back Exam Back Exam: NORMAL INSPECTION - Neurological Exam Neurological Exam: Alert, Awake, Oriented x3 - Psychiatric Exam Psychiatric exam: Normal Affect, Normal Mood - Skin Skin Exam: Intact, Normal Color, Warm Assessment and Plan - Assessment and Plan (Free Text) Assessment: CHF exacerbation Echo (04/04/18): EF :44% mild to moderate left ventricular hypertrophy. Systolic function is mildly impaired. Septal hypokinesis. Moderate valvular aortic stenosis. Mitral regurg is moderate. Moderate tricuspid regurg. Mild pulmonary hypertension. Cxray (04/16/18): persistent pulmonary vascular congestion approximately stable compared to prior study. -BNP 23,000 -repeat BNP on 04/16: [id number] -Lasix 20mg po daily -NC prn A. Fib -Eliquis 2.5mg po q12h restarted on 04/07 -Metoprolol Tartrate 50mg po BID (changed from metoprolol succinate on 04/16) -Cardizem 240mg po daily (started on 04/10) Right sided apical PNA - last dose of Primaxin completed on 04/12/18 - ID, Dr. Loredo is consulted Hypothyroidism -Synthroid 25mcg po daily Discussed with Dr. Gaitan <Kenny Gaitan - Last Filed: 04/22/18 23:42> Objective - Vital Signs/Intake and Output Vital Signs (last 24 hours): Temp Pulse Resp BP Pulse Ox 98.6 F 113 H 20 96/63 L 99 04/22/18 15:47 04/22/18 16:22 04/22/18 15:47 04/22/18 15:47 04/22/18 15:47 Intake and Output: 04/22/18 04/23/18 18:59 06:59 Intake Total 480 Output Total 200 350 Balance 280 -350 - Medications Medications: Current Medications Acetaminophen (Tylenol 325mg Tab) 650 mg PO Q6 PRN PRN Reason: Fever >100.4 F Last Admin: 04/22/18 14:36 Dose: 650 mg Apixaban (Eliquis) 2.5 mg PO Q12 [facility] Last Admin: 04/22/18 21:34 Dose: 2.5 mg Digoxin (Lanoxin) 0.25 mg PO DAILY@1800 [facility] Last Admin: 04/22/18 18:34 Dose: 0.25 mg Diltiazem HCl (Cardizem Cd) 240 mg PO DAILY [facility] Last Admin: 04/22/18 09:39 Dose: 240 mg Docusate Sodium (Colace) 100 mg PO DAILY [facility] Last Admin: 04/22/18 09:39 Dose: 100 mg Folic Acid (Folic Acid) 1 mg PO DAILY [facility] Last Admin: 04/22/18 09:39 Dose: 1 mg Furosemide (Lasix) 20 mg PO DAILY [facility] Last Admin: 04/22/18 09:40 Dose: Not Given Ipratropium [place] (Atrovent) 0.5 mg IH RQ6 [facility] Last Admin: 04/22/18 20:57 Dose: 0.5 mg Levothyroxine Sodium (Synthroid) 25 mcg PO DAILY@0630 [facility] Last Admin: 04/22/18 06:39 Dose: 25 mcg Lidocaine (Lidoderm) 1 ea TD DAILY [facility] Last Admin: 04/22/18 09:39 Dose: 1 ea Metoprolol Tartrate (Lopressor) 50 mg PO BID [facility] Last Admin: 04/22/18 17:06 Dose: Not Given Pantoprazole Sodium (Protonix Ec Tab) 40 mg PO DAILY [facility] Last Admin: 04/22/18 09:39 Dose: 40 mg - Labs Labs: 04/22/18 16:07 04/22/18 16:07 PT 14.9 SECONDS (9.7-12.2) H 04/10/18 06:32 INR 1.4 04/10/18 06:32 APTT 31 SECONDS (21-34) 04/10/18 06:32 Assessment and Plan - Assessment and Plan (Free Text) Assessment: Patient seen and evaluated personally by nd Plan of care d/w the resident and as documented
[2018-04-22] MEDS: Digoxin 250 mcg (0.25 mg) Tab PO SCH (18:34)
--- NOTE | 2018-04-22 20:32 | CP.PCM.PN ---
Subjective - Date & Time of Evaluation Date of Evaluation: 04/22/18 Time of Evaluation: 20:32 Objective - Vital Signs/Intake and Output Vital Signs (last 24 hours): Temp Pulse Resp BP Pulse Ox 98.6 F 113 H 20 96/63 L 99 04/22/18 15:47 04/22/18 16:22 04/22/18 15:47 04/22/18 15:47 04/22/18 15:47 Intake and Output: 04/22/18 04/23/18 18:59 06:59 Intake Total 480 Output Total 200 Balance 280 - Medications Medications: Current Medications Acetaminophen (Tylenol 325mg Tab) 650 mg PO Q6 PRN PRN Reason: Fever >100.4 F Last Admin: 04/22/18 14:36 Dose: 650 mg Apixaban (Eliquis) 2.5 mg PO Q12 [facility] Last Admin: 04/22/18 09:39 Dose: 2.5 mg Digoxin (Lanoxin) 0.25 mg PO DAILY@1800 [facility] Last Admin: 04/22/18 18:34 Dose: 0.25 mg Diltiazem HCl (Cardizem Cd) 240 mg PO DAILY [facility] Last Admin: 04/22/18 09:39 Dose: 240 mg Docusate Sodium (Colace) 100 mg PO DAILY [facility] Last Admin: 04/22/18 09:39 Dose: 100 mg Folic Acid (Folic Acid) 1 mg PO DAILY [facility] Last Admin: 04/22/18 09:39 Dose: 1 mg Furosemide (Lasix) 20 mg PO DAILY [facility] Last Admin: 04/22/18 09:40 Dose: Not Given Ipratropium [place] (Atrovent) 0.5 mg IH RQ6 [facility] Last Admin: 04/22/18 13:38 Dose: 0.5 mg Levothyroxine Sodium (Synthroid) 25 mcg PO DAILY@0630 [facility] Last Admin: 04/22/18 06:39 Dose: 25 mcg Lidocaine (Lidoderm) 1 ea TD DAILY [facility] Last Admin: 04/22/18 09:39 Dose: 1 ea Metoprolol Tartrate (Lopressor) 50 mg PO BID [facility] Last Admin: 04/22/18 17:06 Dose: Not Given Pantoprazole Sodium (Protonix Ec Tab) 40 mg PO DAILY [facility] Last Admin: 04/22/18 09:39 Dose: 40 mg - Labs Labs: 04/22/18 16:07 07/25/18 16:07 PT 14.9 SECONDS (9.7-12.2) H 04/10/18 06:32 INR 1.4 04/10/18 06:32 APTT 31 SECONDS (21-34) 04/10/18 06:32
[2018-04-23] MEDS: Ipratropium 0.02% Inhal Soln (0.5 mg/2.5 ml) UD IH SCH ×4 (01:11→19:26)
[2018-04-23] MEDS: Levothyroxine 25 MCG TAB PO SCH (05:46)
[2018-04-23] MEDS: Lidocaine 5% Patch TD SCH (10:14)
[2018-04-23] MEDS: diltiaZEM 240 mg/24 Hours CD Cap PO SCH (10:15)
[2018-04-23] MEDS: Pantoprazole 40 mg EC Tab PO SCH (10:15)
[2018-04-23] MEDS: Digoxin 250 mcg (0.25 mg) Tab PO SCH (18:36)
[2018-04-23 18:42] VITALS: PULSE 85
--- NOTE | 2018-04-23 22:53 | CP.PCM.PN ---
Subjective - Date & Time of Evaluation Date of Evaluation: 04/23/18 Time of Evaluation: 16:20 - Subjective Subjective: Patient seen and evaluated Denies chest pain and dyspnea Objective - Vital Signs/Intake and Output Vital Signs (last 24 hours): Temp Pulse Resp BP Pulse Ox 97.3 F L 95 H 20 91/60 L 97 04/23/18 15:25 04/23/18 16:00 04/23/18 15:25 04/23/18 15:25 04/23/18 15:25 Intake and Output: 04/23/18 04/24/18 18:59 06:59 Intake Total 200 Output Total 550 Balance 200 -550 - Medications Medications: Current Medications Acetaminophen (Tylenol 325mg Tab) 650 mg PO Q6 PRN PRN Reason: Fever >100.4 F Last Admin: 04/23/18 18:41 Dose: 650 mg Apixaban (Eliquis) 2.5 mg PO Q12 [facility] Last Admin: 04/23/18 21:33 Dose: 2.5 mg Digoxin (Lanoxin) 0.25 mg PO DAILY@1800 [facility] Last Admin: 04/23/18 18:36 Dose: 0.25 mg Diltiazem HCl (Cardizem Cd) 240 mg PO DAILY [facility] Last Admin: 04/23/18 10:15 Dose: 240 mg Docusate Sodium (Colace) 100 mg PO DAILY [facility] Last Admin: 04/23/18 10:16 Dose: 100 mg Folic Acid (Folic Acid) 1 mg PO DAILY [facility] Last Admin: 04/23/18 10:15 Dose: 1 mg Furosemide (Lasix) 20 mg PO DAILY [facility] Last Admin: 04/23/18 10:22 Dose: 20 mg Ipratropium [place] (Atrovent) 0.5 mg IH RQ6 [facility] Last Admin: 04/23/18 19:26 Dose: 0.5 mg Levothyroxine Sodium (Synthroid) 25 mcg PO DAILY@0630 [facility] Last Admin: 04/23/18 05:46 Dose: 25 mcg Lidocaine (Lidoderm) 1 ea TD DAILY [facility] Last Admin: 04/23/18 10:14 Dose: 1 ea Metoprolol Tartrate (Lopressor) 50 mg PO BID [facility] Last Admin: 04/23/18 18:42 Dose: Not Given Pantoprazole Sodium (Protonix Ec Tab) 40 mg PO DAILY [facility] Last Admin: 04/23/18 10:15 Dose: 40 mg - Labs Labs: 04/22/18 16:07 04/22/18 16:07 PT 14.9 SECONDS (9.7-12.2) H 04/10/18 06:32 INR 1.4 04/10/18 06:32 APTT 31 SECONDS (21-34) 04/10/18 06:32
[2018-04-24] MEDS: Ipratropium 0.02% Inhal Soln (0.5 mg/2.5 ml) UD IH SCH ×3 (01:32→13:36)
[2018-04-24] MEDS: Levothyroxine 25 MCG TAB PO SCH (06:18)
[2018-04-24 08:54] VITALS: TEMP 98.5
[2018-04-24] MEDS: diltiaZEM 240 mg/24 Hours CD Cap PO SCH (10:37)
[2018-04-24] MEDS: Pantoprazole 40 mg EC Tab PO SCH (10:37)
[2018-04-24] MEDS: Lidocaine 5% Patch TD SCH (10:38)
--- NOTE | 2018-04-24 12:39 | CP.PCM.PN ---
Subjective - Date & Time of Evaluation Date of Evaluation: 04/23/18 Time of Evaluation: 14:00 - Subjective Subjective: No complaints. Objective - Vital Signs/Intake and Output Vital Signs (last 24 hours): Temp Pulse Resp BP Pulse Ox 98.5 F 113 H 20 109/77 98 04/24/18 07:35 04/24/18 11:51 04/24/18 07:35 04/24/18 10:37 04/24/18 07:35 Intake and Output: 04/24/18 04/24/18 06:59 18:59 Output Total 1250 Balance -1250 - Medications Medications: Current Medications Acetaminophen (Tylenol 325mg Tab) 650 mg PO Q6 PRN PRN Reason: Fever >100.4 F Last Admin: 04/23/18 18:41 Dose: 650 mg Apixaban (Eliquis) 2.5 mg PO Q12 [facility] Last Admin: 04/24/18 10:37 Dose: 2.5 mg Digoxin (Lanoxin) 0.25 mg PO DAILY@1800 [facility] Last Admin: 04/23/18 18:36 Dose: 0.25 mg Diltiazem HCl (Cardizem Cd) 240 mg PO DAILY [facility] Last Admin: 04/24/18 10:37 Dose: 240 mg Docusate Sodium (Colace) 100 mg PO DAILY [facility] Last Admin: 04/24/18 10:37 Dose: 100 mg Folic Acid (Folic Acid) 1 mg PO DAILY [facility] Last Admin: 04/24/18 10:37 Dose: 1 mg Furosemide (Lasix) 20 mg PO DAILY [facility] Last Admin: 04/24/18 10:37 Dose: 20 mg Ipratropium [place] (Atrovent) 0.5 mg IH RQ6 [facility] Last Admin: 04/24/18 07:51 Dose: 0.5 mg Levothyroxine Sodium (Synthroid) 25 mcg PO DAILY@0630 [facility] Last Admin: 04/24/18 06:18 Dose: 25 mcg Lidocaine (Lidoderm) 1 ea TD DAILY [facility] Last Admin: 04/24/18 10:38 Dose: 1 ea Metoprolol Tartrate (Lopressor) 50 mg PO BID [facility] Last Admin: 04/24/18 10:37 Dose: 50 mg Pantoprazole Sodium (Protonix Ec Tab) 40 mg PO DAILY [facility] Last Admin: 04/24/18 10:37 Dose: 40 mg - Labs Labs: 04/22/18 16:07 04/22/18 16:07 PT 14.9 SECONDS (9.7-12.2) H 04/10/18 06:32 INR 1.4 04/10/18 06:32 APTT 31 SECONDS (21-34) 04/10/18 06:32 - Head Exam Head Exam: ATRAUMATIC - Eye Exam Eye Exam: Normal appearance - ENT Exam ENT Exam: Mucous Membranes Dry - Respiratory Exam Respiratory Exam: NORMAL BREATHING PATTERN - Cardiovascular Exam Cardiovascular Exam: +S1, +S2 - GI/Abdominal Exam GI & Abdominal Exam: Normal Bowel Sounds Assessment and Plan (1) Anemia Assessment & Plan: mild normal iron, b12, folate stores Status: Acute (2) Thrombocytopenia Assessment & Plan: mild s/p bone marrow evaluation no intervention Status: Acute
[2018-04-24 16:22] VITALS: BP 99/63; PULSE 81; O2SAT 97
--- NOTE | 2018-04-24 17:11 | PCM.HF ---
Heart Failure Core Measure - Heart Failure Ejection Fraction: 40 % or Greater XAVIER Inhibitor Prescribed: No Contraindication/Reason for not providing: ef>45 Beta-Neva Prescribed: Metoprolol Succinate Angiotensin II Receptor Neva Prescribed: No Contraindication/Reason for not providing: ef.45 AnticoagulationTherapy for Atrial Fibrillation/Atrialflutter: Yes Aldosterone Antagonist Prescribed: No Contraindication/Reason for not providing: ef>45 Hydralazine Nitrate Prescribed: No Contraindication/Reason for not providing: on cardizem , ef>45 Implantable Cardioverter Defibrillator Therapy: No Contraindication/Reason for not providing: ef>45 Cardiac Resynchronization Therapy Prescribed: No Contraindication/Reason for not providing: ef>45 - Follow up Will be discharged to: [facility] Facility Follow Up Date (must be within 7 days from discharge): 04/27/18 Follow Up Time: 09:00
--- NOTE | 2018-04-29 23:49 | CP.PCM.DIS ---
Provider - Provider Date of Admission: 04/03/18 17:52 Attending physician: Gustabo Hassan MD Hospital Course - Lab Results Lab Results: Micro Results 04/13/18 21:05 Nose MRSA Culture - Final MRSA NOT DETECTED 04/04/18 06:18 Blood-Venous Blood Culture - Final NO GROWTH AFTER 5 DAYS 04/04/18 06:17 Blood-Venous Blood Culture - Final NO GROWTH AFTER 5 DAYS 04/04/18 06:17 Blood-Venous Gram Stain - Final TEST NOT PERFORMED 04/03/18 18:12 Urine,Catheterized Urine Culture - Final Coagulase Neg Staphylococcus 04/03/18 21:51 Nose MRSA Culture (Admit) - Final MRSA NOT DETECTED Most Recent Lab Values WBC 7.4 K/uL (4.8-10.8) 04/22/18 16:07 RBC 3.91 Mil/uL (3.80-5.20) 04/22/18 16:07 Hgb 10.5 g/dL (11.0-16.0) L 04/22/18 16:07 Hct 32.9 % (34.0-47.0) L 04/22/18 16:07 MCV 84.1 fL (81.0-99.0) 04/22/18 16:07 MCH 26.9 pg (27.0-31.0) L 04/22/18 16:07 MCHC 32.1 g/dL (33.0-37.0) L 04/22/18 16:07 RDW 20.2 % (11.5-14.5) H 04/22/18 16:07 Plt Count 103 K/uL (130-400) L D 04/22/18 16:07 MPV 8.9 fL (7.2-11.7) 04/22/18 16:07 Neut % (Auto) 86.4 % (50.0-75.0) H 04/22/18 16:07 Lymph % (Auto) 4.4 % (20.0-40.0) L 04/22/18 16:07 White % (Auto) 8.1 % (0.0-10.0) 04/22/18 16:07 Eos % (Auto) 0.8 % (0.0-4.0) 04/22/18 16:07 Baso % (Auto) 0.3 % (0.0-2.0) 04/22/18 16:07 Neut # (Auto) 6.4 K/uL (1.8-7.0) 04/22/18 16:07 Lymph # (Auto) 0.3 K/uL (1.0-4.3) L 04/22/18 16:07 White # (Auto) 0.6 K/uL (0.0-0.8) 04/22/18 16:07 Eos # (Auto) 0.1 K/uL (0.0-0.7) 04/22/18 16:07 Baso # (Auto) 0.0 K/uL (0.0-0.2) 04/22/18 16:07 Neutrophils % (Manual) 89 % (50-75) H 04/22/18 16:07 Band Neutrophils % 1 % (0-2) 04/22/18 16:07 Lymphocytes % (Manual) 4 % (20-40) L 04/22/18 16:07 Reactive Lymphs % 1 % (0-0) H 04/15/18 07:48 Monocytes % (Manual) 6 % (0-10) 04/22/18 16:07 Eosinophils % (Manual) 1 % (0-4) 04/20/18 06:39 Myelocytes % 1 % (0-0) H 04/20/18 06:39 Platelet Estimate Slightly decreased (NORMAL) L 04/22/18 16:07 Large Platelets Present 04/20/18 06:39 Polychromasia Slight 04/17/18 06:21 Hypochromasia (manual) Slight 04/22/18 16:07 Poikilocytosis (manual Slight 04/22/18 16:07 Basophilic Stippling Slight 04/20/18 06:39 Anisocytosis (manual) Slight 04/22/18 16:07 Microcytosis (manual) Slight 04/04/18 06:14 Macrocytosis (manual) Slight 04/04/18 06:14 Target Cells Slight 04/20/18 06:39 Tear Drop Cells Slight 04/07/18 06:08 Ovalocytes Slight 04/22/18 16:07 LAP Score 152 (20-180) 04/08/18 08:01 PT 14.9 SECONDS (9.7-12.2) H 04/10/18 06:32 INR 1.4 04/10/18 06:32 APTT 31 SECONDS (21-34) 04/10/18 06:32 Puncture Site L bra 04/09/18 05:27 pCO2 39 mm/Hg (35-45) 04/09/18 05:27 pO2 107 mm/Hg (80-100) H 04/09/18 05:27 HCO3 28.3 mmol/L (21-28) H 04/09/18 05:27 ABG pH 7.47 (7.35-7.45) H 04/09/18 05:27 ABG Total CO2 29.6 mmol/L (22-28) H 04/09/18 05:27 ABG O2 Saturation 98.4 % (95-98) H 04/09/18 05:27 ABG Base Excess 4.4 mmol/L (-2.0-3.0) H 04/09/18 05:27 ABG Hemoglobin 10.8 g/dL (11.7-17.4) L 04/09/18 05:27 ABG Carboxyhemoglobin 1.4 % (0.5-1.5) 04/09/18 05:27 POC ABG HHb (Measured) 1.6 % (0.0-5.0) 04/09/18 05:27 ABG Methemoglobin 1.0 % (0.0-3.0) 04/09/18 05:27 Gregory Test Na 04/09/18 05:27 VBG pH 7.43 (7.32-7.43) 04/03/18 18:29 VBG pCO2 36 mmHg (40-60) L 04/03/18 18:29 VBG HCO3 24.4 mmol/L 04/03/18 18:29 VBG Total CO2 25.0 mmol/L (22-28) 04/03/18 18:29 VBG O2 Sat (Calc) 81.7 % (40-65) H 04/03/18 18:29 VBG Base Excess -0.1 mmol/L (0.0-2.0) L 04/03/18 18: VBG Potassium 3.9 mmol/L (3.6-5.2) 04/03/18 18:29 A-a O2 Difference 129.0 mm/Hg 04/09/18 05:27 Respiratory Index 1.2 04/09/18 05:27 Hgb O2 Saturation 96.0 % (95.0-98.0) 04/09/18 05:27 Sodium 132.0 mmol/l (132-148) 04/03/18 18:29 Chloride 99.0 mmol/L (98-107) 04/03/18 18:29 Glucose 126 mg/dl (65-105) H 04/03/18 18:29 Lactate 1.7 mmol/L (0.7-2.1) 04/03/18 18:29 Vent Mode Bipap 04/07/18 10:26 FiO2 40.0 % 04/09/18 05:27 Inspiratory BiPAP 14 04/07/18 10:26 Expiratory BiPAP 7 04/07/18 10:26 Sodium 135 mmol/L (132-148) 04/22/18 16:07 Potassium 3.8 mmol/L (3.6-5.2) 04/22/18 16:07 Chloride 92 mmol/L (98-107) L 04/22/18 16:07 Carbon Dioxide 34 mmol/L (22-30) H 04/22/18 16:07 Anion Gap 12 (10-20) 04/22/18 16:07 BUN 22 mg/dL (7-17) H 04/22/18 16:07 Creatinine 0.9 mg/dL (0.7-1.2) 04/22/18 16:07 Est GFR ( Amer) > 60 04/22/18 16:07 Est GFR (Non-Af Amer) 59 04/22/18 16:07 POC Glucose (mg/dL) 143 mg/dL (65-110) H 04/24/18 16:05 Random Glucose 124 mg/dL (65-105) H 04/22/18 16:07 Calcium 8.3 mg/dl (8.6-10.4) L 04/22/18 16:07 Phosphorus 3.9 mg/dL (2.5-4.5) 04/13/18 06:24 Magnesium 2.0 mg/dL (1.6-2.3) 04/20/18 06:39 Total Bilirubin 0.9 mg/dL (0.2-1.3) 04/22/18 16:07 AST 24 U/L (14-36) 04/22/18 16:07 ALT 53 U/L (9-52) H D 04/22/18 16:07 Alkaline Phosphatase 207 U/L (38-126) H 04/22/18 16:07 Lactate Dehydrogenase 1056 U/L (313-618) H 04/06/18 06:15 Total Creatine Kinase 20 U/L (30-135) L 04/22/18 16:07 CK-MB (Mass) 1.07 ng/mL (0.0-3.38) 04/22/18 16:07 Troponin I 0.0440 ng/mL (0.00-0.120) 04/22/18 16:07 NT-Pro-B Natriuret Pep 50092 pg/mL (0-900) H 04/16/18 19:40 Total Protein 5.4 g/dL (6.3-8.3) L 04/22/18 16:07 Albumin 2.8 g/dL (3.5-5.0) L 04/22/18 16:07 Globulin 2.5 gm/dL (2.2-3.9) 04/22/18 16:07 Albumin/Globulin Ratio 1.1 (1.0-2.1) 04/22/18 16:07 Venous Blood Potassium 3.9 mmol/L (3.6-5.2) 04/03/18 18:29 Urine Color Lauren (YELLOW) 04/03/18 16:56 Urine Clarity Hazy (Clear) 04/03/18 16:56 Urine pH 5.0 (5.0-8.0) 04/03/18 16:56 Ur Specific [place] 1.017 (1.003-1.030) 04/03/18 16:56 Urine Protein 1+ mg/dL (NEGATIVE) H 04/03/18 16:56 Urine Glucose (UA) Normal mg/dL (Normal) 04/03/18 16:56 Urine Ketones Negative mg/dL (NEGATIVE) 04/03/18 16:56 Urine Blood Negative (NEGATIVE) 04/03/18 16:56 Urine Nitrate Negative (NEGATIVE) 04/03/18 16:56 Urine Bilirubin Negative (NEGATIVE) 04/03/18 16:56 Urine Urobilinogen 4.0 mg/dL (0.2-1.0) H 04/03/18 16:56 Ur Leukocyte Esterase 2+ Katie/uL (Negative) H 04/03/18 16:56 Urine WBC (Auto) 38 /hpf (0-5) H 04/03/18 16:56 Urine RBC (Auto) 3 /hpf (0-3) 04/03/18 16:56 Ur Squamous Epith Cells 7 /hpf (0-5) H 04/03/18 16:56 Hyaline Casts 3-5 /lpf (0-2) H 04/03/18 16:56 Stool Occult Blood Negative (NEGATIVE) 04/05/18 11:57 Vancomycin Trough 14.7 ug/mL (5.0-10.0) H 04/07/18 06:09 Blood Type O POSITIVE 04/05/18 19:11 Antibody Screen Negative 04/05/18 19:11 Discharge Exam - Head Exam Head Exam: ATRAUMATIC Discharge Plan - Follow Up Plan Condition: CRITICAL Disposition: REHAB FACILITY/REHAB UNIT Instructions: Heart Healthy Diet, Heart Failure, Adult (DC), Pneumonia, Adult ( DC), Shortness of Breath (Dyspnea) (DC) Referrals: Gustabo Hassan MD [Staff Provider] -
== END 2018-04-24 18:00 | DRG 871 ==
LOC: C.ER 16:07 → C.9E 17:52 → C.9I 18:46 → C.6T 04-13 19:31
PROVIDERS: ADMIT Internal Medicine; ATTEND Internal Medicine
PROC: 5A09557 Assistance with Respiratory Ventilation, Greater than 96 Consecutive Hours, Continuous Positive Airway Pressure (ICD-10-PCS; principal; 2018-04-03)
DX: A41.9 Sepsis, unspecified organism (principal); I50.33 Acute on chronic diastolic (congestive) heart failure; J69.0 Pneumonitis due to inhalation of food and vomit; J96.01 Acute respiratory failure with hypoxia; I13.0 Hypertensive heart and chronic kidney disease with heart failure and stage 1 through stage 4 chronic kidney disease, or unspecified chronic kidney disease; K56.609 Unspecified intestinal obstruction, unspecified as to partial versus complete obstruction; N39.0 Urinary tract infection, site not specified; D61.818 Other pancytopenia; I25.10 Atherosclerotic heart disease of native coronary artery without angina pectoris; I34.0 Nonrheumatic mitral (valve) insufficiency; I35.0 Nonrheumatic aortic (valve) stenosis; I48.2 Chronic atrial fibrillation; K20.9 Esophagitis, unspecified; I27.20 Pulmonary hypertension, unspecified; K26.9 Duodenal ulcer, unspecified as acute or chronic, without hemorrhage or perforation; E78.5 Hyperlipidemia, unspecified; E03.9 Hypothyroidism, unspecified; K29.70 Gastritis, unspecified, without bleeding; N18.2 Chronic kidney disease, stage 2 (mild); Z95.0 Presence of cardiac pacemaker; Z95.2 Presence of prosthetic heart valve; Z95.5 Presence of coronary angioplasty implant and graft